=== PATIENT | male | born 1940 | race Caucasian/White ===

== ENCOUNTER 2022-10-18 14:24 | Outpatient (OUT) | payer MEDICARE, BC, SELFPAY ==
--- NOTE | 2022-10-18 14:45 | CT_ITS ---
[address] [address] Patient Name: BROOKLYN ELY MRN: [id number] date: 1940 Sex: M Assigned Patient Location: LAB Current Patient Location: LAB Accession/Order Number: [id number] Exam Date: 10/18/2022 16:00 Report Date: 10/19/2022 06:49 At the request of: TEVIN PURDY Procedure: CT abdomen pelvis w con EXAMINATION: CT abdomen pelvis w con HISTORY: Abnormal weight loss R63.4, Diarrhea, unspecified R19.7 COMPARISON: No relevant comparison available. TECHNIQUE: Axial, Coronal, and Sagittal images were obtained without and/or with IV contrast as indicated by examination type. Dose reduction techniques were achieved by using automated exposure control and/or adjustment of mA and/or kV according to patient size and/or use of iterative reconstruction technique. FINDINGS: LUNG BASES: No visible pulmonary or pleural disease. LIVER: No enlargement, atrophy, suspicious density, or significant focal lesion. BILIARY: No dilatation or calcification. PANCREAS: No lesion, fluid collection, or abnormal duct dilatation. SPLEEN: No enlargement or focal lesion. ADRENALS: No mass or enlargement. KIDNEYS: No mass, obstruction, or calcification. BOWEL/MESENTERY: No visible mass, obstruction, or bowel wall thickening. Normal appendix. No significant diverticulosis. AORTA/VASCULAR: Moderate-marked atherosclerotic disease. No aneurysm or dissection. RETROPERITONEUM: No mass or adenopathy. LYMPH NODES: No adenopathy. URINARY BLADDER: No visible focal wall thickening, lesion, or calculus. PELVIC ORGANS: Prominent prostate protruding into base of bladder. ABDOMINAL WALL: No mass or hernia. BONES: Marked degenerative disc disease L4-5. Degenerative changes of the sacroiliac joints. OTHER: Negative. IMPRESSION: 1. No acute or suspicious findings to account for patient's symptoms. 2.Chronic changes as detailed above. Electronically authenticated by: PAULA ALMAZAN Date: 10/19/2022 06:49
[2022-10-18 14:50] LABS: Estimated GFR (African America 44 (>=60); Estimated GFR (Non-African Ame 36 (>=60)
== END 2022-10-18 14:25 ==
LOC: LAB 14:28
PROVIDERS: PCP Family Medicine; Visit Provider Surgery
DX: R19.7 Diarrhea, unspecified (principal); R63.4 Abnormal weight loss
CPT/HCPCS: 36415; 74177; 82565; Q9966

== ENCOUNTER 2022-11-03 13:26 | Outpatient (OUT) | payer MEDICARE, BC, SELFPAY ==
[2022-11-03 13:57] LABS: Basophils Absolute Auto 0.1 10^3/uL (0.0-0.1); Basophils Percent Auto 0.7 % (0.2-2.0); Eosinophils Absolute Auto 0.2 10^3/uL (0.0-0.7); Eosinophils Percent Auto 2.6 % (0.9-7.0); Hematocrit 30.9 % (42.0-54.0); Hemoglobin 10.3 g/dL (14.0-18.0); Immature Granulocytes Abs Auto 0.03 10^3/uL (0.00-0.03); Immature Granulocytes Pct Auto 0.4 % (0.0-0.5); Lymphocytes Absolute Auto 2.4 10^3/uL (1.2-3.8); Mean Corpuscular HGB Conc 33.3 g/dL (29.9-35.2); Mean Corpuscular Hemoglobin 31.7 pg (25.9-34.0); Mean Corpuscular Volume 95.1 fL (80.0-94.0); Mean Platelet Volume 9.4 fL (9.5-13.5); Monocytes Absolute Auto 0.8 10^3/uL (0.3-0.8); Monocytes Percent Auto 10.3 % (1.7-12.0); Neutrophils Absolute Auto 4.5 10^3/uL (1.4-6.5); Platelet Count 302 10^3/uL (150-450); Red Blood Count 3.25 10^6/uL (4.70-6.10); Red Cell Distribution Width 13.1 % (11.0-15.0); White Blood Count 8.1 10^3/uL (4.0-11.0)
[2022-11-03 14:16] LABS: Estimated Average Glucose 134 mg/dL; Glycohemoglobin A1C 6.3 % (4.5-6.2)
[2022-11-03 15:33] LABS: Alanine Aminotransferase 29 U/L (16-63); Albumin Level 3.6 g/dL (3.4-5.0); Alkaline Phosphatase 70 U/L (46-116); Anion Gap 14.2; Aspartate Amino Transferase 15 U/L (15-37); BUN Creatinine Ratio 19.5; Bilirubin Total 0.2 mg/dL (0.2-1.0); Calcium 8.8 mg/dL (8.5-10.1); Carbon Dioxide 21.3 mmol/L (21.0-32.0); Chloride 109 mmol/L (98-107); Chol HDL Ratio 3.7; Cholesterol 147 mg/dL (<=200); Estimated GFR (African America 51 (>=60); Estimated GFR (Non-African Ame 42 (>=60); Globulin 3.7 g/dL; Glucose 178 mg/dL (74-106); HDL Cholesterol 40 mg/dL (40-60); Potassium 5.5 mmol/L (3.5-5.1); Sodium 139 mmol/L (136-145); Thyroid Stimulating Hormone 2.583 uIU/mL (0.358-3.740); Total Protein 7.3 g/dL (6.4-8.2); Triglycerides 359 mg/dL (<=150); VLDL CHOLESTEROL 71.8 mg/dL
[2022-11-03 18:34] LABS: Free T4 0.85 ng/dL (0.76-1.46)
== END 2022-11-03 13:27 ==
LOC: LAB 13:29
PROVIDERS: PCP Family Medicine; Visit Provider Family Medicine
DX: E03.9 Hypothyroidism, unspecified (principal); E78.5 Hyperlipidemia, unspecified; R79.89 Other specified abnormal findings of blood chemistry; E11.9 Type 2 diabetes mellitus without complications; I10 Essential (primary) hypertension; R53.83 Other fatigue; Z12.11 Encounter for screening for malignant neoplasm of colon; E55.9 Vitamin D deficiency, unspecified
CPT/HCPCS: 36415; 80053; 80061; 82306; 83036; 84439; 84443; 85025

== ENCOUNTER 2022-11-08 15:32 | Outpatient (REF) | payer MEDICARE, BC, SELFPAY ==
[2022-11-09 15:18] LABS: Occult Blood Negative
== END 2022-11-08 15:33 | disposition home or self-care (01) ==
LOC: LAB 15:32
PROVIDERS: PCP Family Medicine; Visit Provider Family Medicine
DX: Z12.11 Encounter for screening for malignant neoplasm of colon (principal)
CPT/HCPCS: G0328

== ENCOUNTER 2023-04-15 13:50 | Outpatient (OUT) | payer MEDICARE, BC, SELFPAY ==
[2023-04-15 14:34] LABS: Basophils Absolute Auto 0.1 10^3/uL (0.0-0.1); Basophils Percent Auto 0.7 % (0.2-2.0); Eosinophils Absolute Auto 0.2 10^3/uL (0.0-0.7); Eosinophils Percent Auto 1.5 % (0.9-7.0); Hematocrit 32.7 % (42.0-54.0); Hemoglobin 10.4 g/dL (14.0-18.0); Immature Granulocytes Abs Auto 0.12 10^3/uL (0.00-0.03); Lymphocytes Absolute Auto 3.4 10^3/uL (1.2-3.8); Lymphocytes Percent Auto 27.8 % (20.5-60.0); Mean Corpuscular HGB Conc 31.8 g/dL (29.9-35.2); Mean Corpuscular Hemoglobin 29.4 pg (25.9-34.0); Mean Corpuscular Volume 92.4 fL (80.0-94.0); Mean Platelet Volume 9.6 fL (9.5-13.5); Monocytes Absolute Auto 1.1 10^3/uL (0.3-0.8); Monocytes Percent Auto 8.6 % (1.7-12.0); Neutrophils Absolute Auto 7.4 10^3/uL (1.4-6.5); Neutrophils Percent Auto 60.4 % (43.0-75.0); Platelet Count 412 10^3/uL (150-450); Red Blood Count 3.54 10^6/uL (4.70-6.10); Red Cell Distribution Width 13.2 % (11.0-15.0); White Blood Count 12.2 10^3/uL (4.0-11.0)
[2023-04-15 14:38] LABS: Estimated Average Glucose 209 mg/dL; Glycohemoglobin A1C 8.9 % (4.5-6.2)
[2023-04-15 14:48] LABS: Alanine Aminotransferase 26 U/L (16-63); Albumin Globulin Ratio 0.7; Albumin Level 3.3 g/dL (3.4-5.0); Alkaline Phosphatase 88 U/L (46-116); Anion Gap 14.7; Aspartate Amino Transferase 10 U/L (15-37); BUN Creatinine Ratio 22.3; Bilirubin Total 0.4 mg/dL (0.2-1.0); Carbon Dioxide 25.3 mmol/L (21.0-32.0); Chloride 104 mmol/L (98-107); Chol HDL Ratio 3.7; Cholesterol 161 mg/dL (<=200); Estimated GFR (African America 44 (>=60); Estimated GFR (Non-African Ame 36 (>=60); Free T3 1.87 pg/mL (2.18-3.98); Globulin 4.5 g/dL; Glucose 253 mg/dL (74-106); HDL Cholesterol 44 mg/dL (40-60); Sodium 139 mmol/L (136-145); Thyroid Stimulating Hormone 1.816 uIU/mL (0.358-3.740); Total Protein 7.8 g/dL (6.4-8.2); Triglycerides 159 mg/dL (<=150); VLDL CHOLESTEROL 31.8 mg/dL
== END 2023-04-15 13:51 | disposition home or self-care (01) ==
LOC: LAB 13:51
PROVIDERS: PCP Family Medicine; Visit Provider Family Medicine
DX: E03.9 Hypothyroidism, unspecified (principal); I10 Essential (primary) hypertension; I25.10 Atherosclerotic heart disease of native coronary artery without angina pectoris; E11.40 Type 2 diabetes mellitus with diabetic neuropathy, unspecified; E78.5 Hyperlipidemia, unspecified; R73.09 Other abnormal glucose; D64.9 Anemia, unspecified; E55.9 Vitamin D deficiency, unspecified
CPT/HCPCS: 36415; 80053; 80061; 82306; 83036; 83540; 84436; 84443; 84481; 85025

== ENCOUNTER 2023-05-18 13:54 | Outpatient (OUT) | payer MEDICARE, BC, SELFPAY ==
--- OUTSIDE RECORDS SUMMARY | 2023-05-18 14:09 | XMS_ITS | CCD ---
Author Name Unknown Address [address] [place] [address] Organization [facility] Care Team Providers Care Manager Coding Name Role Phone Shreyas Adame Primary Care Physician SHREYAS ADAME Primary Care Unavailable NAZZAL, MUNIER Admitting Unavailable NAZZAL, MUNIER Attending Unavailable SHREYAS ADAME Referring Unavailable SHREYAS ADAME Referring Unavailable BENJY MATAMOROSEN Deric Admitting Unavailable LANIE MATAMOROS Attending Unavailable SHREYAS ADAME Primary Care Unavailable SHREYAS ADAME Primary Care Unavailable TRIPP KENNY Admitting Unavailable TRIPP KENNY Attending Unavailable SHREYAS ADAME Referring Unavailable NAZZAL, MUNIER Referring Unavailable NAZZAL, MUNIER Referring Unavailable NAZZAL, MUNIER Referring Unavailable GUILLEOSTHALIAEN Attending Unavailable NAZZAL, MUNIER Attending Unavailable NAZZAL, MUNIER Referring Unavailable SFAELOS TRIPP Referring Unavailable THALIA KENNYEN Attending Unavailable NAZZAL, MUNIER Admitting Unavailable NAZZAL, MUNIER Attending Unavailable DEPE Clement, DR MARTIN Primary Care Unavailable BRENNA ., DR MCKOY Admitting Unavailable BRENNA ., DR MCKOY Attending Unavailable HOY ., DR MARTIN Primary Care Unavailable HOY ., DR MARTIN Attending Unavailable DEEP ., DR MARTIN Admitting Unavailable BOOGIE, DR PARADISE Echavarria Consulting Unavailable HOY ., DR MARTIN Consulting Unavailable GREGORY ELIZABETH Consulting Unavailable BRADLEY, MICHEL Consulting Unavailable NILL ., DR ABARCA Admitting Unavailable HOY ., DR MARTIN Primary Care Unavailable NILL ., DR ABARCA Consulting Unavailable NILL ., DR ABARCA Attending Unavailable RIMMA OLIVAREZ Consulting Unavailable KALLIE, DR MARMOLEJO Admitting Unavailable KALLIE, DR MARMOLEJO Consulting Unavailable KALLIE, DR MARMOLEJO Attending Unavailable HOBrien ., DR MARTIN Primary Care Unavailable HOY ., DR MARTIN Primary Care Unavailable MISC, DOCTOR Admitting Unavailable MISC, DOCTOR Consulting Unavailable MISC, DOCTOR Attending Unavailable Asaad, Imad Unavailable MD Shreyas Adame Primary Care Provider [phone] MD Lamin Thomason Attending Provider [phone] NILL, Tevin R Attending Unavailable NILL, Tevin R Attending Unavailable Shreyas Adame Referring Unavailable NILL, Tevin R Attending Unavailable CEJA, Ted R Attending Unavailable MICHAEL, SAMANTHA Diego Attending Unavailable CEJATde Attending Unavailable CEJA, Ted Echavarria Attending Unavailable MICHAEL, SAMANTHA Diego Attending Unavailable NILL, Tevin R Attending Unavailable Asaad, Imad Admitting Unavailable Asaad, Imad Attending Unavailable Shreyas Adame Primary Care Unavailable Asaad, Imad Admitting Unavailable Asaad, Imad Attending Unavailable Shreyas Adame Primary Care Unavailable Asaad, Imad Admitting Unavailable Asaad, Imad Attending Unavailable Shreyas Adame Primary Care Unavailable Allergies Allergy Classification Reported Allergen(s) Allergy Type Date of Onset Reaction(s) Facility (1 source) 63412,00; Translations: [65112,00] Propensity to adverse reactions (disorder) [address] [facility] Repository (1 source) No Known Medication Allergies; Translations: [No Known Medication Allergies] Propensity to adverse reactions (disorder) [facility] Repository Medications Current Medications Medication Drug Class(es) Dates Sig (Normalized) Sig (Original) amLODIPine 10 mg oral tablet (2 sources) Dihydropyridine Calcium Channel Gerry take 1 tablet by mouth every twenty-four hours amLODIPine Besylate 10 MG 1 tablet Orally Once a day Active amylase 645742 unt / lipase 39785 unt / protease 195198 unt delayed release oral capsule (1 source) Start: 01-31-2023 Creon [id number] UNIT 2 CAPSULES WITH MEALS. 1 WITH SNACKS Orally 5 TIMES DAILY (ALLOW FOR 3 MEALS AND 2 SNACKS. for 30 days Jan, Active ASA (2 sources) ASA 1 tab Oral *please review for potential _update for e-prescription and drug interaction check* Active aspirin 81 mg delayed release oral tablet (7 sources) Platelet Aggregation Inhibitor, Nonsteroidal Anti-inflammatory Drug Start: 09-17-2022 take 2 tablets by mouth once daily aspirin 81 mg Oral EC Tab 162 mg = 2 tab(s), Oral, Daily, Refills(s) 0 Start Date: 09/17/22 Status: Ordered Start: 02-01-2019 aspirin 81 mg Chew Tab 81 mg = 1 tab(s), Chewed, Daily Start Date: 02/01/19 Status: Ordered take 1 tablet by olvin th every twenty-four hours Aspirin 81 81 MG 1 tablet Orally Once a day Active atorvastatin 40 mg oral tablet (7 sources) HMG-CoA Reductase Inhibitor Start: 02-01-2019 take 1 tablet by mouth once daily atorvastatin 40 mg Tab 40 mg = 1 tab(s), Oral, Daily Start Date: 02/01/19 Status: Ordered bifidobacterium infantis 4 mg oral capsule (2 sources) Start: 01-12-2023 Align - as directed Orally once daily for 30 days Dec, Active carvedilol 25 mg oral tablet (6 sources) alpha-Adrenergic Gerry, beta-Adrenergic Gerry Start: 11-27-2021 take 1 tablet by mouth twice daily carvedilol 25 mg Tab 25 mg = 1 tab(s), Oral, BID, Refills(s) 0 Start Date: 11/27/21 Status: Ordered Centrum Vitamints - (2 sources) Centrum Vitamint s - as directed Orally Active cetirizine hydrochloride 10 mg oral tablet (1 source) Histamine-1 Receptor Antagonist Start: 09-17-2022 take 1 tablet by mouth once daily cetirizine 10 mg Tab 10 mg = 1 tab(s), Oral, Daily, Refills(s) 0 Start Date: 09/17/22 Status: Ordered clopidogrel 75 mg oral tablet (7 sources) P2Y12 Platelet Inhibitor Start: 02-01-2019 take 75 mg by mouth once daily clopidogrel 75 mg, Oral, Daily Start Date: 02/01/19 Status: Ordered Clopidogrel Bisu lfate Active doxycycline hyclate 100 mg oral capsule (2 sources) Tetracycline-class Drug Start: 11-27-2021 take 1 capsule by mouth twice daily doxycycline hyclate 100 mg Cap 100 mg = 1 cap(s), Oral, BID, # 28 cap(s), Refills(s) 0, Pharmacy: [address], 168, cm, 11/27/21 10:35:00 EDT, Height/Length Dosing, 78, kg, 11/27/21 10:35:00 EDT, Weight Dosing Start Date: 11/27/21 Status: Ordered dutasteride 0.5 mg oral capsule (4 sources) 5-alpha Reductase Inhibitor Start: 11-27-2021 take 1 capsule by mouth once daily dutasteride 0.5 mg Cap 0.5 mg = 1 cap(s), Oral, Daily, # 90 cap(s), Refills(s) 3, Pharmacy: [facility], 168, cm, 11/27/21 10:35:00 EDT, Height/Length Dosing, 78, kg, 11/27/21 10:35:00 EDT, Weight Dosing Start Date: 11/27/21 Status: Ordered glimepiride 4 mg oral tablet (7 sources) Sulfonylurea Start: 02-01-2019 take 1 tablet by mouth once daily glimepiride 4 mg Tab 4 mg = 1 tab(s), Oral, Daily Start Date: 02/01/19 Status: Ordered Start: 02-01-2019 take 2 tablets by [facility] once daily glimepiride 4 mg Tab 8 mg = 2 tab(s), Oral, Daily Start Date: 02/01/19 Status: Ordered hydrALAZINE hydrochloride 100 mg oral tablet (2 sources) Arteriolar Vasodilator take 1 tablet by mouth every twelve hours hydrALAZINE HCl 100 MG 1 tablet Orally Twice a day Active 1 ml hydrOXYzine hydrochloride 25 mg/ml injection (2 sources) Antihistamine hydrOXYzine HCl 25 MG/ML as directed Intramuscular Active levothyroxine sodium 0.075 mg oral tablet (3 sources) l-Thyroxine Start: 09-18-19 take 1 tablet by mouth once daily levothyroxine 75 mcg (0.075 mg) Tab 75 mcg = 1 tab(s), Oral, Daily, Refills(s) 0 Start Date: 09/17/22 Status: Ordered take [address] [facility] once daily in the morning Synthroid 50 MCG 1 tablet on an empty stomach in the morning Orally Once a day Active lisinopril 10 mg oral tablet (7 sources) Angiotensin Converting Enzyme Inhibitor Start: 09-17-2022 take 1 tablet by mouth twice daily lisinopril 10 mg Tab 10 mg = 1 tab(s), Oral, BID, Refills(s) 0 Start Date: 09/17/22 Status: Ordered Start: 02-01-2019 take 1 tablet by olvin th twice daily lisinopril 2.5 mg Tab 2.5 mg = 1 tab(s), Oral, BID Start Date: 02/01/19 Status: Ordered Lisinopril 5 MG Orally Active metFORMIN hydrochloride 1000 mg oral tablet (6 sources) Biguanide Start: 02-01-2019 take 1000 mg by mouth twice daily metformin 1,000 mg, Oral, BID Start Date: 02/01/19 Status: Ordered 24 hr metoprolol succinate 50 mg extended release oral tablet (6 sources) beta-Adrenergic Gerry Start: 02-01-2019 take 1 tablet by mouth twice daily metoprolol 50 mg ER Tab 50 mg = 1 tab(s), Oral, BID Start Date: 02/01/19 Status: Ordered take 1 tablet by olvin th every twenty-four hours Metoprolol Succinate ER 100 MG 1 tablet Orally Once a day Active pantoprazole 40 mg extended release oral tablet (7 sources) Proton Pump Inhibitor Start: 02-01-2019 take 1 tablet by mouth once daily pantoprazole 40 mg Oral EC Tab 40 mg = 1 tab(s), Oral, Daily Start Date: 02/01/19 Status: Ordered Start: 02-01-2019 take 1 tablet by olvin th once daily pantoprazole 40 mg Oral EC Tab 40 mg = 1 tab(s), Oral, Daily Start Date: 02/01/19 Status: Ordered Psyllium Fiber 0.52 GM (2 sources) Start: 01-12-2023 Psyllium Fiber 0.52 GM 2 capsules with 8 ounces of liquid Orally Three times a day for 30 day(s) Dec, Active sAXagliptin 2.5 mg oral tablet (6 sources) Dipeptidyl Peptidase 4 Inhibitor Start: 02-01-2019 take 1 tablet by mouth once daily Onglyza 2.5 mg oral tablet 2.5 mg = 1 tab(s), Oral, Daily Start Date: 02/01/19 Status: Ordered SITagliptin 100 mg oral tablet (6 sources) Dipeptidyl Peptidase 4 Inhibitor Start: 11-27-2021 take 1 tablet by mouth once daily Januvia 100 mg Tab 100 mg = 1 tab(s), Oral, Daily, Refills(s) 0 Start Date: 11/27/21 Status: Ordered spironolactone 25 mg oral tablet (4 sources) Aldosterone Antagonist Start: 11-27-2021 take 1 tablet by mouth once daily spironolactone 25 mg Tab 25 mg = 1 tab(s), Oral, Daily, Refills(s) 0 Start Date: 11/27/21 Status: Ordered tamsulosin hydrochloride 0.4 mg oral capsule (7 sources) alpha-Adrenergic Gerry Start: 02-01-2019 take 1 capsule by mouth once daily tamsulosin 0.4 mg Cap 0.4 mg = 1 cap(s), Oral, Daily Start Date: 02/01/19 Status: Ordered Thyroxine Sodium Pentahydrate (4 sources) Start: 02-01-2019 Thyroxine Sodium Pentahydrate See Instructions, Refills(s) 0 Start Date: 02/01/19 Status: Ordered Vitox (4 sources) Start: 02-01-2019 Vitox See Instructions, Refill(s) 0 Start Date: 02/01/19 Status: Ordered Problems Active Problems Problem Classification Problem Date Documented Da te Episodic/Chronic Acquired foot deformities (2 sources) Acquired hallux malleus; Translations: [Other hammer toe(s) (acquired), unspecified foot] Chronic Anxiety disorders (1 source) Anxiety 09-17-2022 Chronic Coronary atherosclerosis and other heart disease (3 sources) Coronary arteriosclerosis; Translations: [Coronary atherosclerosis] 09-17-2022 Chronic Deficiency and other anemia (1 source) Anemia due to chronic blood loss; Translations: [Iron deficiency anemia secondary to blood loss (chronic)] Onset: 09-22-2022 Chronic Deficiency and other anemia (1 source) Anemia due to blood loss 09-22-2022 Chronic Diabetes mellitus with complications (4 sources) Diabetic peripheral neuropathy; Translations: [Type 2 diabetes mellitus with hyperglycemia] Onset: 01-05-2022 09-17-2022 Chronic Diabetes mellitus without complication (5 sources) Diabetes mellitus 02-01-2019 Chronic Disorders of lipid metabolism (2 sources) Hypertriglyceridemia ; Translations: [Pure hypercholesterolemia , unspecified] Onset: 01-05-2022 09-17-2022 Chronic Essential hypertension (6 sources) Hypertensive disorder; Translations: [Essential (primary) hypertension] Onset: 01-05-2022 02-01-2019 Chronic Heart valve disorders (2 sources) Aortic valve regurgitation; Translations: [Mitral valve regurgitation] 09-17-2022 Chronic Hyperplasia of prostate (12 sources) Benign prostatic hypertrophy with outflow obstruction; Translations: [Benign prostatic hyperplasia with lower urinary tract symptoms] Onset: 11-27-2021 02-01-2019 Chronic Inflammatory conditions of male genital organs (8 sources) Chronic prostatitis; Translations: [Chronic prostatitis] Onset: 11-27-2021 02-01-2019 Chronic Occlusion or stenosis of precerebral arteries (9 sources) Occlusion and stenosis of bilateral carotid arteries; Translations: [Occlusion and stenosis of right carotid artery] Onset: 10-15-2021 Chronic Other and ill-defined heart disease (1 source) Ventricular hypertrophy 09-17-2022 Chronic Other and ill-defined heart disease (4 sources) Heart disease, unspecified; Translations: [HEART DISEASE UNSPECIFIED] Onset: 11-23-2021 Chronic Other circulatory disease (1 source) History of transient ischemic attack 09-17-2022 Episodic Other diseases of kidney and ureters (1 source) Urinary tract obstruction; Translations: [Other obstructive and reflux uropathy] Onset: 06-09-2022 Episodic Other gastrointestinal disorders (1 source) Irritable bowel syndrome 09-17-2022 Chronic Other gastrointestinal disorders (2 sources) Altered bowel function; Translations: [Change in bowel habit] Onset: 09-22-2022 Episodic Other gastrointestinal disorders (4 sources) Incontinence of feces; Translations: [Full incontinence of feces] Onset: 09-22-2022 Episodic Other gastrointestinal disorders (3 sources) Diarrhea; Translations: [Diarrhea, unspecified] Onset: 09-22-2022 Episodic Other gastrointestinal disorders (2 sources) Constipation; Translations: [Constipation, unspecified] Episodic Other gastrointestinal disorders (1 source) Full incontinence of feces Episodic Other gastrointestinal disorders (2 sources) Constipation, unspecified; Translations: [Constipation, unspecified] Onset: 01-18-2023 Episodic Other nervous system disorders (2 sources) Other acute postprocedural pain; Translations: [Other acute postprocedural pain] Onset: 02-22-2022 Episodic Other nutritional; endocrine; and metabolic disorders (1 source) Abnormal weight loss; Translations: [Abnormal weight loss] Onset: 09-22-2022 Episodic Other nutritional; endocrine; and metabolic disorders (1 source) Overweight in adulthood with body mass index of 25 or more but less than 30 09-22-2022 Episodic Other nutritional; endocrine; and metabolic disorders (1 source) Weight loss 09-22-2022 Episodic Other screening for suspected conditions (not mental disorders or infectious disease) (5 sources) Raised prostate specific antigen 02-01-2019 Episodic Peripheral and visceral atherosclerosis (1 source) Peripheral vascular disease 09-17-2022 Chronic Pulmonary heart disease (1 source) Pulmonary hypertension 09-17-2022 Chronic Screening and history of mental health and substance abuse codes (5 sources) Ex-smoker 02-01-2019 Episodic Spondylosis; intervertebral disc disorders; other back problems (1 source) Spinal stenosis of lumbar region 09-17-2022 Episodic Thyroid disorders (1 source) Hypothyroidism 09-17-2022 Chronic Unclassified (5 sources) Drug therapy finding 02-01-2019 Unclassified (1 source) Severe aortic valve stenosis 09-17-2022 Unclassified (1 source) CONTACT W/AND (SUSP) EXPOS COVID-19; Translations: [CONTACT W/AND (SUSP) EXPOS COVID-19] Onset: 01-05-2022 Past or Other Problems Problem Classification Problem Date Documented Date Episodic/Chronic Acute and unspecified renal failure (1 source) Acute kidney failure, unspecified; Translations: [ACUTE KIDNEY FAILURE UNSPECIFIED] Onset: 01-05-2022 Episodic Coronary atherosclerosis and other heart disease (1 source) Presence of aortocoronary bypass graft; Translations: [PRESENCE AORTOCORONARY BYPASS GRAFT] Onset: 01-05-2022 Episodic Fluid and electrolyte disorders (1 source) Dehydration; Translations: [DEHYDRATION] Onset: 01-05-2022 Episodic Genitourinary symptoms and ill-defined conditions (15 sources) Dysuria; Translations: [Dysuria] Onset: 10-06-2021 Episodic Malaise and fatigue (4 sources) Weakness; Translations: [WEAKNESS] Onset: 12-25-2021 Episodic Noninfectious gastroenteritis (1 source) Noninfective gastroenteritis and colitis, unspecified; Translations: [NONINFECTIVE GE AND COLITIS UNS] Onset: 01-05-2022 Episodic Other aftercare (1 source) halfway (current) use of aspirin; Translations: [SENIOR CARE CURRENT USE OF ASPIRIN] Onset: 01-05-2022 Episodic Other aftercare (1 source) halfway (current) use of oral hypoglycemic drugs; Translations: [SENIOR CARE USE ORAL HYPOGLYCEMIC DX] Onset: 01-05-2022 Episodic Other aftercare (1 source) 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/antip latelets; Translations: [SENIOR CARE ANTITHROMBOT/ANTIPLAT LETS] Onset: 01-05-2022 Episodic Other aftercare (1 source) 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; Translations: [OTH SENIOR CARE CURRENT DRUG THERAPY] Onset: 01-05-2022 Episodic Other circulatory disease (1 source) Personal history of transient ischemic attack (TIA), and cerebral infarction without residual deficits; Translations: [PERS HX TIA AND CI NO RESID DEFICIT] Onset: 01-05-2022 Episodic Residual codes; unclassified (1 source) Altered mental status, unspecified; Translations: [ALTERED MENTAL STATUS UNSPECIFIED] Onset: 01-05-2022 Episodic Septicemia (except in labor) (1 source) Gram-negative sepsis, unspecified; Translations: [GRAM-NEGATIVE SEPSIS UNSPECIFIED] Onset: 01-05-2022 Episodic Urinary tract infections (1 source) Urinary tract infection, site not specified; Translations: [UTI SITE NOT SPECIFIED] Onset: 01-05-2022 Episodic Results Test Name Value Interpretation Reference Range Facility Consultation Noteon 01-20-20 Consultation Note [id number] [facility] Stool Cultureon 01-18-2023 Stool culture Reason for Exam Constipation, unspecified constipation type Stool Reason for Exam: Constipation, unspecified constipation type : Stool Negative for Shiga Toxin 1 Negative for Shiga Toxin 2 A negative Shiga Toxin result may occur if the antigen level in the specimen is below the detection limit of the assay. Stool culture results No Salmonella, Shigella, Campy or E. coli 0157:H7 Isolated PERFORMED BY: [place] [id number] [place] [address] PATHOLOGIST MOLD CARRIER SUMAN HAY M.D. [facility] Comment on above: Performed By: #### C MAYELAOL #### [place] [address] [place] Calprotectin, Fecalon 2022 Calprotectin, Fecal 78 Normal 0-120 [facility] Comment on above: Order Comment: Reaso n for Exam Constipation, unspecified constipation type Result Comment: Conc entration Interpretation Follow-Up < 5 - 50 ug/g Normal None >50 -120 ug/g Borderline Re-evaluate in 4-6 weeks >120 ug/g Abnormal Repeat as clinically indicated Performed at: [facility] [address] [id number] Tin Dipper: Miguel Avilez MD, Phone: [phone] PERFORMED BY: [place] [address] PATHOLOGIST MOLD CARRIER SUMAN HAY M.D. Performed By: #### O PEXAM, CALPROTECT, ELASTASE STOOL #### [facility] , OVA AND PARASITEon OVA AND PARASITE Reason for Exam Constipation, unspecified constipation type Stool Reason for Exam: Constipation, unspecified constipation type : Stool Final report These results were obtained using wet preparation(s) and trichrome stained smear. This test does not include testing for Cryptosporidium parvum, Cyclospora, or Microsporidia. Reason for Exam Constipation, unspecified constipation type Stool Reason for Exam: Constipation, unspecified constipation type : Stool No ova, cysts, or parasites seen. One negative specimen does not rule out the possibility of a parasitic infection. Performed at: [facility] [address] [id number] Tin Dipper: Igor Roque PhD, Phone: [phone] PERFORMED BY: [place] [address] PATHOLOGIST MOLD CARRIER SUMAN HAY M.D. Normal [facility] Comment on above: Performed By: #### O PEXAM, CALPROTECT, ELASTASE STOOL #### [facility] , Pancreatic Elastase, Stoolon 01-16-2023 Pancreatic Elastase, Stool 150 Low >200 [facility] Comment on above: Order Comment: Reaso n for Exam Constipation, unspecified constipation type Result Comment: Resu lt Units: ug Elast./g Severe Pancreatic Insufficiency: <100 Moderate Pancreatic Insufficiency: 100 - 200 Normal: >200 Performed at: [address] [id number] Tin Dipper: Miguel Avilez MD, Phone: [phone] PERFORMED BY: [place] [address] PATHOLOGIST MOLD CARRIER SUMAN HAY M.D. Performed By: #### O PEXAM, CALPROTECT, ELASTASE STOOL #### [facility] , C reactive protein [Mass/vol ume] in Serum or PlasmaOrdered By: Imad Asaad on 01-12-2023 CRP [Mass/Vol] < 0.5 mg/dL 0.0-0.5 [facility] C-Reactive Proteinon 023 CRP [Mass/Vol] mg/L Normal 0.0-0.5 [facility] Comment on above: Order Comment: Reaso n for Exam Constipation, unspecified constipation type Performed By: #### T SH3, ESR, CRP #### [facility] [address] [place] [address] #### CELIAC, HIV SCREEN #### [facility] , Celiacon 01-12-2023 Deamidated Gliadin Abs, IgA 10 Normal 0- [facility] Comment on above: Order Comment: Reaso n for Exam Constipation, unspecified constipation type Result Comment: Nega tive 0 - 19 Weak Positive 20 - 30 Moderate to Strong Positive >30 Performed By: #### T SH3, ESR, CRP #### [facility] [address] [place] [address] #### CELIAC, HIV SCREEN #### [facility] , Deamidated Gliadin Abs, IgG 2 Normal 0-19 [facility] Comment on above: Order Comment: Reaso n for Exam Constipation, unspecified constipation type Result Comment: Nega tive 0 - 19 Weak Positive 20 - 30 Moderate to Strong Positive >30 Performed By: #### T SH3, ESR, CRP #### [facility] [address] [place] [address] [place] #### CELIAC, HIV SCREEN #### [facility] , Endomysial Antibody IgA Negative Normal Negative [facility] Comment on above: Order Comment: Reaso n for Exam Constipation, unspecified constipation type Performed By: #### T SH3, ESR, CRP #### [facility] [address] [place] [address] [place] #### CELIAC, HIV SCREEN #### [facility] , Immunoglobulin A, Qn, Serum 437 mg/dL Normal 61-437 [facility] Comment on above: Order Comment: Reaso n for Exam Constipation, unspecified constipation type Result Comment: Perf ormed at: - [facility] [address] [id number] Tin Dipper: Igor Roque PhD, Phone: [phone] Performed By: #### T SH3, ESR, CRP #### [facility] [address] [place] [address] [place] #### CELIAC, HIV SCREEN #### [facility] , T-Transglutaminase (tTG) IgA <2 Normal 0-3 [facility] Comment on above: Order Comment: Reaso n for Exam Constipation, unspecified constipation type Result Comment: Nega tive 0 - 3 Weak Positive 4 - 10 Positive >10 Tissue Transglutaminase (tTG) has been identified as the endomysial antigen. Studies have demonstr- ated that endomysial IgA antibodies have over 99% specificity for gluten sensitive enteropathy. Performed By: #### T SH3, ESR, CRP #### [facility] [address] [place] [address] [place] #### CELIAC, HIV SCREEN #### [facility] , T-Transglutaminase (tTG) IgG 5 Normal 0-5 [facility] Comment on above: Order Comment: Reaso n for Exam Constipation, unspecified constipation type Result Comment: Nega tive 0 - 5 Weak Positive 6 - 9 Positive >9 Performed By: #### T SH3, ESR, CRP #### [address] #### CELIAC, HIV SCREEN #### [facility] , Erythrocyte Sedimentation Ra miguel 01-12-2023 ESR (Bld) [Velocity] 19 mm/h Normal 0-19 [facility] Comment on above: Order Comment: Reaso n for Exam Constipation, unspecified constipation type Result Comment: PERF ORMED BY: [place] [address] PATHOLOGIST MOLD CARRIER SUMAN HAY M.D. Performed By: #### T SH3, ESR, CRP #### [address] #### CELIAC, HIV SCREEN #### [facility] , Erythrocyte sedimentation ra te by Photometric methodOrdered By: Imad Asaad on 01-12-2023 ESR Photometric method (Bld) [Velocity] 19 mm/hr 0- [facility] HIV 1/O/2 Antigen/Antibodyon 01-12-2023 HIV Screen 4th Generation Non-Reactive Normal Non Reactive [facility] Comment on above: Order Comment: Reaso n for Exam Constipation, unspecified constipation type Result Comment: HIV Negative HIV-1/HIV-2 antibodies and HIV-1 p24 antigen were NOT detected. There is no laboratory evidence of HIV infection. Performed at: [address] [id number] Tin Dipper: Igor Roque PhD, Phone: [phone] PERFORMED BY: [place] [address] PATHOLOGIST MOLD CARRIER SUMAN HAY M.D. Performed By: #### T SH3, ESR, CRP #### [facility] [address] [place] [address] [place] #### CELIAC, HIV SCREEN #### [facility] , HIV 1 and HIV-2 antibody ass ay with HIV-1 p24 antigen detectionOrdered By: Imad Asaad on 01-12-2023 HIV 1+2 Ab+HIV1 p24 Ag IA Ql Non-Reactive Non Reactive [facility] Comment on above: HIV NegativeHIV-1/HI V-2 antibodies and HIV-1 p24 antigen were NOTdetected. There is no laboratory evidence of HIV infection.Performed at: CB - [facility] [address] [id number] Director: Igor Roque PhD, Phone: [phone] IgA [Mass/volume] in Serum o r PlasmaOrdered By: Lamin Thomason on 01-12-2023 IgA [Mass/Vol] 437 mg/dL 61-437 [facility] Comment on above: Performed at: CB - [facility] [address] [id number] Director: Igor Roque PhD, Phone: [phone] No Panel InformationOrdered By: Lamin Thomason on 01-12-2023 Endomysial IgA Antibody Negative Negative [facility] Serum gliadin peptide IgA an tibody assay (units/volume)Ordered By: Lamin Thomason on 01-12-2023 Gliadin peptide IgA Qn (S) 10 units 0-19 [facility] Comment on above: Negative 0 - 19 Weak Positive 20 - 30 Moderate to Strong Positive >30 Serum gliadin peptide IgG an tibody assay (units/volume)Ordered By: Lamin Thomason on 01-12-2023 Gliadin peptide IgG Qn (S) 2 units 0-19 [facility] Comment on above: Negative 0 - 19 Weak Positive 20 - 30 Moderate to Strong Positive >30 Serum tissue transglutaminas e (tTG) IgA antibody assay (units/volume)Ordered By: Lamin Thomason on 01-12-2023 tTG IgA Qn (S) <2 U/mL 0-3 [facility] Comment on above: Negative 0 - 3 Weak Positive 4 - 10 Positive >10 Tissue Transglutaminase (tTG) has been identified as the endomysial antigen. Studies have demonstr- ated that endomysial IgA antibodies have over 99% specificity for gluten sensitive enteropathy. Serum tissue transglutaminas e (tTG) IgG antibody assay (units/volume)Ordered By: Lamin Thomason on 01-12-2023 tTG IgG Qn (S) 5 U/mL 0-5 [facility] Comment on above: Negative 0 - 5 Weak Positive 6 - 9 Positive >9 Thyroid Stimulating Hormoneo n 01-12-2023 TSH Qn 1.54 m[IU]/L Normal 0.45-5.33 [facility] Comment on above: Order Comment: Reaso n for Exam Constipation, unspecified constipation type Result Comment: PERF ORMED BY: [place] [address] PATHOLOGIST MOLD CARRIER SUMAN HAY M.D. Performed By: #### T SH3, ESR, CRP #### [facility] [address] [place] [address] [place] #### CELIAC, HIV SCREEN #### [facility] , Thyrotropin [Units/volume] i n Serum or PlasmaOrdered By: Lamin Thomason on 01-12-2023 TSH Qn 1.54 m[IU]/L 0.45-5.33 [facility] Ambulatory Visit Summaryon 0 12-13-2022 Ambulatory Visit Summary PATRICK RUTHERFORD :1940 Visit Date:12/13/2022 Ambulatory Visit Instructions Your Diagnosis BPH with urinary obstruction Chronic prostatitis Incomplete bladder emptying Tests Performed Urnls Dip Stick Auto w/o Microscopy POC 107[address] Your Care Team Attending Physician - BRENNA LUU, Ted Echavarria Primary Care Physician - Deep LUU, Shreyas This Is Your Medications List tamsulosin (tamsulosin 0.4 mg Cap) Contact prescribing physician if questions or concerns aspirin (aspirin 81 mg Oral EC Tab) atorvastatin (atorvastatin 40 mg Tab) carvedilol (carvedilol 25 mg Tab) cetirizine (cetirizine 10 mg Tab) cholestyramine (Questran 4 g/9 g oral powder) clopidogrel dutasteride (dutasteride 0.5 mg Cap) glimepiride (glimepiride 4 mg Tab) hydrOXYzine (hydrOXYzine hydrochloride 25 mg Tab) levothyroxine (levothyroxine 75 mcg (0.075 mg) Tab) lisinopril (lisinopril 10 mg Tab) pantoprazole (pantoprazole 40 mg Oral EC Tab) sitagliptin (Januvia 100 mg Tab) spironolactone (spironolactone 25 mg Tab) Procedures Performed Colonoscopy (09/29/2022), EGD - Esophagogastroduodenoscopy (09/29/2022), Cystoscopy (12/22/2021), AVR - Aortic valve replacement, CABG - Coronary artery bypass graft, Carotid endarterectomy, Cystoscopy, Endarterectomy, Stent placement, Stent placement. What to do next Scheduled Follow-Up Appointments Tuesday 3:00 PM EST With: BRENNA LUU, Ted Echavarria Where: [facility] Patient Educationon 12-14-19 23 Patient Education Infectious Disease Prostatitis Prostatitis is swelling or inflammation of the prostate gland, also called the prostate. This gland is about 1.5 inches wide and 1 inch high, and it is involved in making semen. The prostate is located below a man's bladder, in front of the rectum. There are four types of prostatitis: ? Chronic prostatitis (CP), also called chronic pelvic pain syndrome (CPPS). This is the most common type of prostatitis. It is associated with increased muscle tone in the area between the hip bones (pelvic area), around the prostate. This type is also known as a pelvic floor disorder. ? Chronic bacterial prostatitis. This type usually results from an acute bacterial infection in the prostate gland that keeps coming back or has not been treated properly. The symptoms are less severe than those caused by acute bacterial prostatitis, which lasts a shorter time. ? Asymptomatic inflammatory prostatitis. This type does not have symptoms and does not need treatment. This is diagnosed when tests are done for other disorders of the urinary tract or reproductive tract. ? Acute bacterial prostatitis. This type starts quickly and results from an acute bacterial infection in the prostate gland. It is usually associated with a bladder infection, high fever, and chills. This is the least common type of prostatitis. What are the causes? Bacterial prostatitis is caused by an infection from bacteria. Chronic nonbacterial prostatitis may be caused by: ? Factors related to the nervous system. This system includes thebrain, spinal cord, and nerves. ? An autoimmune response. This happens when the body's disease-fighting system attacks healthy tissue in the body by mistake. ? Psychological factors. These have to do with how the mind works. The causes of the other types of prostatitis are usually not known. What are the signs or symptoms? Symptoms of this condition depend on the type of prostatitis you have. Acute bacterial prostatitis Symptoms may include: ? Pain or burning during urination. ? Frequent and sudden urges to urinate. ? Trouble starting to urinate. ? Fever. ? Chills. ? Pain in your muscles or joints, lower back, or lower abdomen. Other types of prostatitis Symptoms may include: ? Sudden urges to urinate, or urinating often. ? Trouble starting to urinate. ? Weak urine stream. ? Dribbling after urination. ? Discharge coming from the penis. ? Pain in the testicles, the penis, or the tip of the penis. ? Pain in the area in front of the rectum and below the scrotum (perineum). ? Pain when ejaculating. How is this diagnosed? This condition may be diagnosed based on: ? A physical and medical exam. ? A digital rectal exam. For this, the health care provider may use a finger to feel the prostate. ? A urine test to check for bacteria. ? A semen sample or blood tests. ? Ultrasound. ? Urodynamic tests to check how your body handles urine. ? Cystoscopy to look inside your bladder or inside the part of your body that drains urine from the bladder (urethra). How is this treated? Treatment for this condition depends on the type of prostatitis. Treatment may involve: ? Medicines to relieve pain or inflammation, or to help relax your muscles. ? Physical therapy. ? Heat therapy. ? Biofeedback. These techniques help you control certain body functions. ? Relaxation exercises. ? Antibiotic medicine, if your condition is caused by bacteria. ? Sitz baths. These warm water baths help to relax your pelvic floor muscles, which helps to relieve pressure on the prostate. Follow these instructions at home: Medicines ? Take owat-zjn-hucxrez and prescription medicines only as told by your health care provider. ? If you were prescribed an antibiotic medicine, take it as told by your health care provider. Do not stop using the antibiotic even if you start to feel better. Managing pain and swelling ? Take sitz baths as directed by your health care provider. For a sitz bath, sit in warm water that is deep enough to cover your hips and buttocks. ? If directed, apply heat to the affected area as often as told by your health care provider. Use the heat source that your health care provider recommends, such as a moist heat pack or a heating pad. ? Place a towel between your skin and the heat source. ? Leave the heat on for 20?30 minutes. ? Remove the heat if your skin turns bright red. This is especially important if you are unable to feel pain, heat, or cold. You may have a greater risk of getting burned. General instructions ? Do exercises as told by your health care provider, if you were prescribed physical therapy, biofeedback, or relaxation exercises. ? Keep all follow-up visits as told by your health care provider. This is important. Where to find more information ? National [place] of [employer] and Digestive and Kidney Diseases: (more content not included)... Normal [facility] Urology Office/Clinic Noteon 12-13-2022 Urology Office/Clinic Note Chief Complaint BPH with urinary obstruction HPI Staff 6 month f/u. Previous dx of BPH with urinary obstruction, chronic prostatitis and incomplete bladder emptying. Pt continues taking Dutasteride 5mg QD and Tamsulosin 0.4mg QD. Dysuria: pain and burning every time he voids and states that it is worse than before. Incomplete bladder emptying: sometimes he feels he may not be emptying all the way. Hematuria: no Frequency: no Urgency: rare Nocturia: 1-2x Stream: small and weak with some straining Leaking: yes once in a while Post void dripping: no Wearing pads/ Depends: wears depends and can wear the same all day Urge incontinence: only if he waits too long does he have an accident Stress incontinence: no Incontinence without Sensory Awareness: no Abdominal pain: no Flank pain: no Sexual complaints: no History of Present Illness Tests reviewed: reviewed UA I have reviewed the previous health record information and history for this patient from Dr. Ceja. I have reviewed and verified the staff HPI to be accurate for this encounter. There have been no associated fever, chills, flank pain, or blood in the urine. Denies any urinary infections since last encounter. Review of Systems PHQ Score Initial Depression Screen Score: 0 ROS - Provider Constitutional: denies weight loss, denies hot flashes. Eyes: denies eye problems. Gastrointestinal: denies nausea, denies vomiting. Cardiovascular: denies chest pain or angina. Integumentary: no dryness Musculoskeletal: denies musculoskeletal symptoms. ENMT: denies otolaryngeal symptoms. Respiratory: no shortness of breath. Heme/Lymph: denies easy bleeding tendency, denies easy bruising tendency. Psychiatric: no confusion, no anxiety. Genitourinary: See HPI. Physical Exam General Appearance: alert, no distress, well nourished, well developed male. Genitourinary: normal scrotum, normal testes, normal urethra, normal epididymis, normal vas deferens/spermatic cord. Flank Pain: none. Bladder: nonpalpable. Assessment/Plan 1. BPH with urinary obstruction (N40.1: Benign prostatic hyperplasia with lower urinary tract symptoms) Pt is currently taking Tamsulosin 0.4mg QD at night and Dutasteride 0.5mg QD. Reports start/stop stream on occasion. UA today negative for blood and infection. Will increase Tamsulosin dosage to BID. Discussed possible SEs like dizziness upon standing and pt to monitor for these. he will go back to once per day if he gets any new side effect. Will send new script to [facility]. Follow up in 6 months. All questions/concerns were discussed. Pt to call the office if he encounters any issues prior. Pt acknowledges understanding. 2. Chronic prostatitis (N41.1: Chronic prostatitis) Pt reports he has had some burning with urination. Recommended pt to increase fluid intake to five to six 16oz bottles a day; preferably water, clear pop, and sugar free lemonade. 3. Incomplete bladder emptying (R33.9: Retention of urine, unspecified) Previous PVR on 06/09/22 was 165mL. No bladder scan done today. Reports he does not always feel he empties completely. Follow-up With When Contact Information BRENNA LUU, Tde Echavarria, URL [facility] [address], [place] [address]- [phone] Additional Instructions: 6 mos Patient Education Prostatitis IWilda, personally scribed for Dr. Ceja on 12/13/2022 16:26:30. . Documentation recorded by the scribeWilda, accurately reflects the services(s) I performed and decisions made by me. Authenticated by Dr. Ceja on 12/13/2022 16:29:42. Problem List/Past Medical History Ongoing Anemia due to gastrointestinal blood loss Anticoagulated Anxiety Aortic insufficiency Atherosclerotic heart disease BMI 25.0-25.9,adult BPH with urinary obstruction CAD (coronary artery disease) Change in bowel habits Chronic prostatitis Diabetes Diabetic peripheral neuropathy Diarrhea Dysuria Elevated PSA Enlarged prostate with urinary obstruction Fecal incontinence Former smoker Frequent loose stools History of myocardial infarction Hx-TIA (transient ischemic attack) Hypertension Hypertriglyceridemia Hypothyroidism IBS (irritable bowel syndrome) Incomplete bladder emptying Irritable bowel syndrome Microscopic hematuria Mitral regurgitation Peripheral vascular disease Pulmonary HTN Rectal tenesmus Right carotid artery stenosis Severe aortic stenosis Spinal stenosis of lumbar region with radiculopathy Ventricular hypertrophy Weight loss Historical No qualifying data Procedure/Surgical History Colonoscopy (09/29/2022), EGD - Esophagogastroduodenoscopy (09/29/2022), Cystoscopy (12/22/2021), AVR - Aortic valve replacement, CABG - Coronary artery bypass graft, Carotid endarterectomy, Cystoscopy, Endarterectomy, Stent placement, Stent placement. Medications aspirin 81 mg Oral (more content not included)... Normal [facility] Comment on above: Result Comment: Elec tronically Signed By: Ted CEJA MD\.br\Date and Time Signed: 12/13/22 16:29 EDT\.br\Electronically Co-Signed By: Wilda Choudhary\.br\Date and Time Co-Signed: 12/13/22 16:27 EDT RAD - CT Reporton 10-26-2022 RAD - CT Report [id number]:127 Normal [facility] Lab Reportson 10-24-2022 Lab Reports [id number]:127 Normal [facility] Ambulatory Visit Summaryon 0 10-06-2022 Ambulatory Visit Summary PATRICK RUTHERFORD :1940 Visit Date:10/06/2022 Ambulatory Visit Instructions Your Diagnosis Weight loss Irritable bowel syndrome Frequent loose stools Your Care Team Attending Physician - Tevin PURDY MD Primary Care Physician - Shreyas Adame MD This Is Your Medications List Contact prescribing physician if questions or concerns aspirin (aspirin 81 mg Oral EC Tab) atorvastatin (atorvastatin 40 mg Tab) carvedilol (carvedilol 25 mg Tab) cetirizine (cetirizine 10 mg Tab) clopidogrel dutasteride (dutasteride 0.5 mg Cap) glimepiride (glimepiride 4 mg Tab) levothyroxine (levothyroxine 75 mcg (0.075 mg) Tab) lisinopril (lisinopril 10 mg Tab) pantoprazole (pantoprazole 40 mg Oral EC Tab) sitagliptin (Januvia 100 mg Tab) spironolactone (spironolactone 25 mg Tab) tamsulosin (tamsulosin 0.4 mg Cap) Procedures Performed Colonoscopy (09/29/2022), EGD - Esophagogastroduodenoscopy (09/29/2022), Cystoscopy (12/22/2021), AVR - Aortic valve replacement, CABG - Coronary artery bypass graft, Carotid endarterectomy, Cystoscopy, Endarterectomy, Stent placement, Stent placement. What to do next Scheduled Follow-Up Appointments Tuesday 3:00 PM EDT With: BRENNA LUU, Ted Echavarria Where: [facility] General Surgery Office/Clini c Noteon 10-06-2022 General Surgery Office/Clinic Note Chief Complaint post operative follow up HPI Staff 7 day post operative follow up post EGD and colonoscopy. Continues to experience loose stools and intermittent incontinence. History of Present Illness s/p EGD/colonoscopy for wt loss, loose stools, incontinence; normal EGD, colonoscopy with redundant colon with spasm; still with loose stools once daily and wt loss; no abd imaging; evidence of IBS on colonoscopy; patient reports increased stress due to 's illness. Review of Systems ROS - Provider Constitutional: no fever, no sweats, no weight loss. Eyes: no glasses, no blurred vision, no visual loss. ENMT: no dentures, no hoarseness, no swallowing difficulties, no hearing loss, no ear infection(s), no nose bleeds. Cardiovascular: normal blood pressure, no chest pain, regular heartbeat, no heart murmur. Respiratory: no shortness of breath, no cough, no asthma, no wheezing. Gastrointestinal: no nausea, no vomiting, no diarrhea, no constipation, no blood in stool, no change in bowel habits, no abdominal pain, no hepatitis. Genitourinary: no kidney stones, no urine infection, no dysuria. Musculoskeletal: no pain, no weakness. Skin: no changing moles, no rash, no skin lumps. Neurologic: no seizures, no epilepsy, no headache. Psychiatric: no emotional or psychiatric problem. Heme/Lymph: no bleeding problems, no anemia, no blood clots, no transfusions. Allergy/Immunologic: no swollen lymph nodes/glands, no IV drug abuse. Other: Additional ROS info: Except as noted in the above Review of Systems and in the History of Present Illness, all other systems have been reviewed and are negative or noncontributory. Assessment/Plan 1. Weight loss (R63.4: Abnormal weight loss) will check abd/pelvic ct scan for further evaluation; will call patient with results. Ordered: Creatinine CT Abdomen/Pelvis w/ Contrast 2. Irritable bowel syndrome (K58.9: Irritable bowel syndrome without diarrhea) high fiber diet and fiber supplement bid; call with problems/questions 3. Frequent loose stools (R19.7: Diarrhea, unspecified) see # 2 Ordered: Creatinine CT Abdomen/Pelvis w/ Contrast Follow-up No qualifying data available Problem List/Past Medical History Ongoing Anemia due to gastrointestinal blood loss Anticoagulated Anxiety Aortic insufficiency Atherosclerotic heart disease BMI 25.0-25.9,adult BPH with urinary obstruction CAD (coronary artery disease) Change in bowel habits Chronic prostatitis Diabetes Diabetic peripheral neuropathy Diarrhea Dysuria Elevated PSA Enlarged prostate with urinary obstruction Fecal incontinence Former smoker Frequent loose stools History of myocardial infarction Hx-TIA (transient ischemic attack) Hypertension Hypertriglyceridemia Hypothyroidism IBS (irritable bowel syndrome) Incomplete bladder emptying Irritable bowel syndrome Microscopic hematuria Mitral regurgitation Peripheral vascular disease Pulmonary HTN Right carotid artery stenosis Severe aortic stenosis Spinal stenosis of lumbar region with radiculopathy Ventricular hypertrophy Weight loss Historical No qualifying data Procedure/Surgical History Colonoscopy (09/29/2022), EGD - Esophagogastroduodenoscopy (09/29/2022), Cystoscopy (12/22/2021), AVR - Aortic valve replacement, CABG - Coronary artery bypass graft, Carotid endarterectomy, Cystoscopy, Endarterectomy, Stent placement, Stent placement. Medications aspirin 81 mg Oral EC Tab, 162 mg= 2 tab(s), Oral, Daily atorvastatin 40 mg Tab, 40 mg= 1 tab(s), Oral, Daily carvedilol 25 mg Tab, 25 mg= 1 tab(s), Oral, BID cetirizine 10 mg Tab, 10 mg= 1 tab(s), Oral, Daily clopidogrel, 75 mg, Oral, Daily dutasteride 0.5 mg Cap, 0.5 mg= 1 cap(s), Oral, Daily, 3 refills glimepiride 4 mg Tab, 8 mg= 2 tab(s), Oral, Daily Januvia 100 mg Tab, 100 mg= 1 tab(s), Oral, Daily levothyroxine 75 mcg (0.075 mg) Tab, 75 mcg= 1 tab(s), Oral, Daily lisinopril 10 mg Tab, 10 mg= 1 tab(s), Oral, BID pantoprazole 40 mg Oral EC Tab, 40 mg= 1 tab(s), Oral, Daily spironolactone 25 mg Tab, 25 mg= 1 tab(s), Oral, Daily tamsulosin 0.4 mg Cap, 0.4 mg= 1 cap(s), Oral, Daily Allergies No Known Allergies No Known Medication Allergies Social History Alcohol - Denies Alcohol Use, 09/22/2022 Substance Abuse - Denies Substance Abuse, 09/22/2022 Tobacco Former smoker, quit more than 30 days ago Tobacco Use:. Never Smokeless Tobacco Use:. Cigarettes, 1 per day. Started age 18.0 Years., 09/22/2022 Family History Heart disease: Father. Immunizations Vaccine Date Status influenza virus vaccine, inactivated 05/12/2021 Recorded SARS-CoV-2 (COVID-19) mRNA-1273 vaccine 05/12/2021 Recorded SARS-CoV-2 (COVID-19) mRNA BNT-162b2 vax 11/11/2020 Recorded SARS-CoV-2 (COVID-19) mRNA BNT-162b2 vax 10/20/2020 Recorded influenza virus vaccine, inactivated 02/25/2020 Recorded influenza virus vaccine, inactivated 03/10/2017 Recorded inf (more content not included)... Normal [facility] Comment on above: Result Comment: Elec tronically Signed By: GURWINDER LUU, Tevin Echavarria\.br\Date and Time Signed: 10/06/22 16:12 EDT Outside Colonoscopyon 2022 Outside Colonoscopy [id number]:127 Normal [facility] POINT OF CARE GLUCOSEon 09-13 Glucose [Mass/Vol] 132 mg/dL Critically high 74-106 T [facility] Comment on above: Performed By: #### P OCGLUC #### [facility] [address] [address] [address] Lety Torres Consent for Procedure/Surger yon 09-23-2022 Consent for Procedure/Surgery [id number]:127 Normal [facility] Ambulatory Visit Summaryon 0 09-22-2022 Ambulatory Visit Summary PATRICK RUTHERFORD :1940 Visit Date:09/22/2022 Ambulatory Visit Instructions Your Care Team Attending Physician - GURWINDER LUU, Tevin Echavarria Primary Care Physician - Shreyas Adame MD This Is Your Medications List aspirin (aspirin 81 mg Oral EC Tab) atorvastatin (atorvastatin 40 mg Tab) carvedilol (carvedilol 25 mg Tab) cetirizine (cetirizine 10 mg Tab) clopidogrel dutasteride (dutasteride 0.5 mg Cap) glimepiride (glimepiride 4 mg Tab) levothyroxine (levothyroxine 75 mcg (0.075 mg) Tab) lisinopril (lisinopril 10 mg Tab) pantoprazole (pantoprazole 40 mg Oral EC Tab) sitagliptin (Januvia 100 mg Tab) spironolactone (spironolactone 25 mg Tab) tamsulosin (tamsulosin 0.4 mg Cap) Procedures Performed Cystoscopy (12/22/2021), AVR - Aortic valve replacement, CABG - Coronary artery bypass graft, Carotid endarterectomy, Cystoscopy, Endarterectomy, Stent placement, Stent placement. Discharge Vitals Heart Rate (Peripheral) 72 Respiratory Rate 16 Blood Pressure 156/70 Height 167.64 cm Height 66 in Weight 71.2 kg Weight 156.64 lb BMI 25.34 What to do next Scheduled Follow-Up Appointments Tuesday 3:00 PM EDT With: Ted CEJA MD Where: [facility] [place] Normal [facility] Physician Referralon 023 Physician Referral [id number]:127 Normal [facility] Screenson 06-10-2022 Screens [id number]:127 Normal [facility] Patient Educationon 06-09-19 23 Patient Education Infectious Disease Prostatitis Prostatitis is swelling of the prostate gland. The prostate helps to make semen. It is below a man's bladder, in front of the rectum. There are different types of prostatitis. Follow these instructions at home: ? Take iiru-huw-aulvfwj and prescription medicines only as told by your doctor. ? If you were prescribed an antibiotic medicine, take it as told by your doctor. Do not stop taking the antibiotic even if you start to feel better. ? If your doctor prescribed exercises, do them as directed. ? Take sitz baths as told by your doctor. To take a sitz bath, sit in warm water that is deep enough to cover your hips and butt. ? Keep all follow-up visits as told by your doctor. This is important. Contact a doctor if: ? Your symptoms get worse. ? You have a fever. Get help right away if: ? You have chills. ? You feel sick to your stomach (nauseous). ? You throw up (vomit). ? You feel light-headed. ? You feel like you might pass out (faint). ? You cannot pee (urinate). ? You have blood or clumps of blood (blood clots) in your pee (urine). This information is not intended to replace advice given to you by your health care provider. Make sure you discuss any questions you have with your health care provider. Document Released: 10/31/2012 Document Revised: 04/14/2018 Document Reviewed: 01/20/2017 Elsevier Patient Education ? 2019 [employer]. Urology Benign Prostatic Hyperplasia Benign prostatic hyperplasia (BPH) is an enlarged prostate gland that is caused by the normal aging process and not by cancer. The prostate is a walnut-sized gland that is involved in the production of semen. It is located in front of the rectum and below the bladder. The bladder stores urine and the urethra is the tube that carries the urine out of the body. The prostate may get bigger as a man gets older. An enlarged prostate can press on the urethra. This can make it harder to pass urine. The build-up of urine in the bladder can cause infection. Back pressure and infection may progress to bladder damage and kidney (renal) failure. What are the causes? This condition is part of a normal aging process. However, not all men develop problems from this condition. If the prostate enlarges away from the urethra, urine flow will not be blocked. If it enlarges toward the urethra and compresses it, there will be problems passing urine. What increases the risk? This condition is more likely to develop in men over the age of 50 years. What are the signs or symptoms? Symptoms of this condition include: ? Getting up often during the night to urinate. ? Needing to urinate frequently during the day. ? Difficulty starting urine flow. ? Decrease in size and strength of your urine stream. ? Leaking (dribbling) after urinating. ? Inability to pass urine. This needs immediate treatment. ? Inability to completely empty your bladder. ? Pain when you pass urine. This is more common if there is also an infection. ? Urinary tract infection (UTI). How is this diagnosed? This condition is diagnosed based on your medical history, a physical exam, and your symptoms. Tests will also be done, such as: ? A post-void bladder scan. This measures any amount of urine that may remain in your bladder after you finish urinating. ? A digital rectal exam. In a rectal exam, your health care provider checks your prostate by putting a lubricated, gloved finger into your rectum to feel the back of your prostate gland. This exam detects the size of your gland and any abnormal lumps or growths. ? An exam of your urine (urinalysis). ? A prostate specific antigen (PSA) screening. This is a blood test used to screen for prostate cancer. ? An ultrasound. This test uses sound waves to electronically produce a picture of your prostate gland. Your health care provider may refer you to a specialist in kidney and prostate diseases (urologist). How is this treated? Once symptoms begin, your health care provider will monitor your condition (active surveillance or watchful waiting). Treatment for this condition will depend on the severity of your condition. Treatment may include: ? Observation and yearly exams. This may be the only treatment needed if your condition and symptoms are mild. ? Medicines to relieve your symptoms, including: ? Medicines to shrink the prostate. ? Medicines to relax the muscle of the prostate. ? Surgery in severe cases. Surgery may include: ? Prostatectomy. In this procedure, the prostate tissue is removed completely through an open incision or with a laparoscope or robotics. ? Transurethral resection of the prostate (TURP). In this procedure, a tool is inserted through the opening at the tip of the penis (urethra). It is used to cut away tissue of the inner core of the prostate. The pieces are removed through the sa (more content not included)... Normal [facility] Urology Office/Clinic Noteon 06-09-2022 Urology Office/Clinic Note Chief Complaint f/u to Cysto HPI Staff PRW pt here today to follow up to Cysto done 12/22/21 due to BPH & Chronic Prostatitis. [place] ER 12/25/21 due to not urinating. PVR at that time 120ml. Tx for UTI w/Rocephin and admitted. *Dutasteride 0.5mg & Tamsulosin 0.4mg QD therapy. IPSS 13 Occasional burning at the start of voiding, once stream is going it quits. Small stream. Voiding at least q2hrs during the day, occasionally wakes up 1x/night to void. Occasional leaking, when he waits too long. History of Present Illness Pt is here for follow up to Cysto on 12/22/2021 due to BPH Reviewed UA, PVR and IPSS (13) Pt has no associated symptoms, no fever, no chills, no flank pain. I have reviewed the previous health record information and history for this patient from Dr. Ceja Review of Systems PHQ Score Initial Depression Screen Score: 0 no fever, chills, malaise, myalgia. no rash/lesions. no chest pain, palpitations, or SOB. no abdominal pain, nausea, vomiting. no unilateral calf swelling, redness, pain Physical Exam Vitals & Measurements HR: 68(Peripheral) RR: 16 BP: 138/74 HT: 66 in HT: 168 cm WT: 78 kg WT: 171.6 lb BMI: 27.64 General: nontoxic, NAD Mouth: moist mucosa Lungs: normal respiratory effort Cardio: regular rate, good distal perfusion Abdomen: nondistended, no suprapubic distention or tenderness, no CVA tenderness Neurologic: Grossly normal Skin: No rashes or suspicious lesions Assessment/Plan 1. BPH with urinary obstruction (N40.1: Benign prostatic hyperplasia with lower urinary tract symptoms) Pt is taking tamsulosin and finasterideand is mostly satisfiedwith overall symptom control. Pt is experiencing noside effects. IPSS 13 QOL 2 We discussed current dose and optional changes: increasing tamsulosin to BID. Don't want to do this as it would increase risk for dizziness/orthostatic hypotension. I discussed with the patient the different surgical treatment options for bladder outlet obstruction including TURP, Rezum, and Urolift. The patient prefers to continue the BPH medications at this time as opposed to surgical intervention - having a lot of life stressors right now (daughter due to breast cancer, broke hip and is in senior care, son has MS and is wheelchair bound). 2. Chronic prostatitis (N41.1: Chronic prostatitis) occasional burning. none recently. 3. Incomplete bladder emptying (R33.9: Retention of urine, unspecified) Pt's PVR in office today was 165cc. similar to previously. pt has had 1 UTI since last visit. this is rare for him. he was instructed to contact our office should he get another UTI. Other obstructive and reflux uropathy (N13.8: Other obstructive and reflux uropathy) Will return for follow up in 6 months Follow-up With When Contact Information SAMANTHA CASTRO PA-C, URL In 6 months [address] [place] [address] Additional Instructions: Patient Education Prostatitis, Qldb-ka-Avwu Benign Prostatic Hyperplasia Documentation recorded by the nedra Parker accurately reflects the services(s) I performed and decisions made by me. Authenticated by Samantha Castro PA-C on 06/09/2022 15:34:56. Brionna Cancino, personally scribed for Samantha Castro PA-C on 06/09/2022 15:30:01. . Problem List/Past Medical History Ongoing Anticoagulated BPH with urinary obstruction Chronic prostatitis Diabetes Dysuria Elevated PSA Enlarged prostate with urinary obstruction Former smoker Hypertension Incomplete bladder emptying Microscopic hematuria Historical No qualifying data Procedure/Surgical History Cystoscopy (12/22/2021), AVR - Aortic valve replacement, CABG - Coronary artery bypass graft, Cystoscopy, Endarterectomy, Gastric bypass, Stent placement, Stent placement. Medications aspirin 81 mg Chew Tab, 81 mg= 1 tab(s), Chewed, Daily atorvastatin 40 mg Tab, 40 mg= 1 tab(s), Oral, Daily carvedilol 25 mg Tab clopidogrel, 75 mg, Oral, Daily dutasteride 0.5 mg Cap, 0.5 mg= 1 cap(s), Oral, Daily, 3 refills glimepiride 4 mg Tab, 4 mg= 1 tab(s), Oral, Daily Januvia 100 mg Tab lisinopril 2.5 mg Tab, 2.5 mg= 1 tab(s), Oral, BID metformin, 1000 mg, Oral, BID metoprolol 50 mg ER Tab, 50 mg= 1 tab(s), Oral, BID Onglyza 2.5 mg oral tablet, 2.5 mg= 1 tab(s), Oral, Daily pantoprazole 40 mg Oral EC Tab, 40 mg= 1 tab(s), Oral, Daily spironolactone 25 mg Tab tamsulosin 0.4 mg Cap, 0.4 mg= 1 cap(s), Oral, Daily Thyroxine Sodium Pentahydrate, See Instructions Vitox, See Instructions Allergies No Known Medication Allergies Social History Tobacco Former smoker, quit more than 30 days ago Tobacco Use:. Never Smokeless Tobacco Use:. Cigarettes, 06/09/2022 Family History Heart disease: Father. Immunizations Vaccine Date Status influenza virus vaccine, inactivated 05/12/2021 Recorded SARS-CoV-2 (COVID-19) [id number] vaccine (more content not included)... Normal [facility] Comment on above: Result Comment: Elec tronically Signed By: MICHAEL MOROCHO, SAMANTHA Ramírez\Date and Time Signed: 06/09/22 15:36 EST Follow-Upon 03-29-2022 Follow-Up [id number] Patrick Rutherford M 1940 M Date Provider Department Center 03/29/2022 JelaniCINDYTHALIA ZAVALAEN BHAVANIASEEMIL [facility] No family history on file Level of Service:59568 HI POSTOP FOLLOW UP VISIT RELATED TO ORIGINAL PX Reason for Visit and Comments: Post-op [483] - TCAR follow up Normal [facility] Office Visiton 03-08-2022 Follow-up visit [id number] Patrick Rutherford M 1940 Date Provider Department Center 03/08/2022 VALERYTRIPP TRIPLETT HVCVASENDO [facility] No family history on file Level of Service:68839 HI POSTOP FOLLOW UP VISIT RELATED TO ORIGINAL PX Reason for Visit and Comments: Post-op [483] - Post op TCAR on 02/22/22 [facility] BASIC METABOLIC PANELon 02-13 Anion gap [Moles/Vol] 6 mmol/L Normal <=30 [facility] Comment on above: Performed By: #### L [id number] ####[facility] (BEAKER)[address] [place] [address] Calcium [Mass/Vol] 8.8 mg/dL Normal 8.6-10.3 [facility] Comment on above: Performed By: #### L [id number] ####[facility] ([facility]AKER)[address] [place] [address] Chloride [Moles/Vol] 108 mmol/L High 98-107 [facility] Comment on above: Performed By: #### L [id number] ####[facility] (BEAKER)[address] [place] [address] CO2 [Moles/Vol] 24 mmol/L Normal 21-31 [facility] Comment on above: Performed By: #### L [id number] ####[facility] (BEAKER)[address] [place] [address] Creatinine [Mass/Vol] 1.18 mg/dL Normal 0.70-1.30 [facility] Comment on above: Performed By: #### L [id number] ####[facility] ([facility])[address] [place] [address] GLOMERULAR FILTRATION RATE ML/MIN/1.73 SQ M.PREDICTED 56.7 mL/min/1.73m*2 Low >60.0 [facility] Comment on above: Result Comment: [facility]???s estimated glomerular filtration rate (eGFR) will no longer include consideration of race in its calculation. The National Kidney Foundation???s eGFR Task Force developed new recommendations for the estimation of the glomerular filtration rate in the [place] They recommend immediate implementation of the new equation refit without the race variable in all laboratories because the calculation does not include race. In addition to not including race in the calculation and reporting, it included diversity in its development, and has acceptable performance characteristics and potential consequences that do not disproportionately affect any one group of individuals. Performed By: #### L [id number] ####[facility] ([facility])[address] [place] [address] Glucose [Mass/Vol] 56 mg/dL Low 70-100 [facility] Comment on above: Performed By: #### L [id number] ####[facility] ([facility])[address] [place] [address] Potassium [Moles/Vol] 3.9 mmol/L Normal 3.5-5.1 [facility] Comment on above: Performed By: #### L [id number] ####[facility] ([facility])[address] [place] [address] Sodium [Moles/Vol] 138 mmol/L Normal 136-145 [facility] Comment on above: Performed By: #### L [id number] ####[facility] ([facility])[address] [place] [address] Urea nitrogen [Mass/Vol] 20 mg/dL Normal 7-25 [facility] Comment on above: Performed By: #### L [id number] ####[facility] ([facility] [place] [address] UREA NITROGEN/CREATININE (MASS RATIO) IN SER/PLAS 16.[address] [facility] Comment on above: Performed By: #### L [id number] ####[facility] ([facility])[address] [place] [address] CBCon 02-24-2022 Erythrocyte distribution width (RBC) [Ratio] 14.0 % Normal 11.5-15.0 [facility] Comment on above: Performed By: #### L [id number] ####[facility] ([facility])[address] [place] [address] ERYTHROCYTE MEAN CORPUSCULAR HEMOGLOBIN CONCENTRATION (G/DL) BY AUTOMATED 32.7 g/dL Normal 32.0-35.0 [facility] Comment on above: Performed By: #### L [id number] ####[facility] ([facility])[address] [place] [address] Hematocrit (Bld) [Volume fraction] 27.5 % Low 39.0-55.0 [facility] Comment on above: Performed By: #### L [id number] ####[facility] ([facility])[address] [place] [address] Hemoglobin (Bld) [Mass/Vol] 9.0 g/dL Low 13.0-17.0 [facility] Comment on above: Performed By: #### L [id number] ####[facility] ([facility])[address] [place] [address] MCH (RBC) [Entitic mass] 30.4 pg Normal 27.0-33.0 [facility] Comment on above: Performed By: #### L [id number] ####[facility] ([facility] [place] [address] MCV (RBC) [Entitic vol] 92.9 fL Normal 82.0-98.0 [facility] Comment on above: Performed By: #### L [id number] ####[facility] ([facility] [place] [address] PLATELETS (10*3/UL) IN BLOOD AUTOMATED COUNT 282 10*3/uL Normal 150-400 [facility] Comment on above: Performed By: #### L [id number] ####[facility] ([facility])[address] [place] [address] RBC (Bld) [#/Vol] 2.96 10*6/uL Low 4.20-5.70 [facility] Comment on above: Performed By: #### L [id number] ####[facility] ([facility])[address] [place] [address] WBC (Bld) [#/Vol] 9.28 10*3/uL Normal 4.00-10.60 [facility] Comment on above: Performed By: #### L [id number] ####[facility] ([facility])[address] [place] [address] MAGNESIUMon 02-24-2022 Magnesium [Mass/Vol] 1.9 mg/dL Normal 1.9-2.7 [facility] Comment on above: Performed By: #### L [id number] #### [facility] ([facility]) [address] [place] [address] NURSNOTEon 02-24-2022 NURSNOTE Attempted to call re port to [facility] with no pickup. RN will be happy to give report if facility chooses to call upon their receipt of the patient. Normal [facility] PHOSPHORUSon 02-24-2022 Magnesium [Mass/Vol] 4.7 mg/dL Normal 2.5-5.0 [facility] Comment on above: Performed By: #### L [id number] ####[facility] ([facility])[address] [place] [address] POCT GLUCOSE METER UNSOLICIT ED RESULTSon 02-24-2022 Glucose [Mass/Vol] 144 mg/dL High 70-105 [facility] Comment on above: Result Comment: [email or web address] Performed By: #### L [id number] ####[facility] (BEAKER)[address] [place] [address] Glucose [Mass/Vol] 196 mg/dL High 70-105 [facility] Comment on above: Result Comment: [email or web address] Performed By: #### L [id number] ####[facility] (BEAKER)[address] [place] [address] Glucose [Mass/Vol] 113 mg/dL High 70-105 [facility] Comment on above: Result Comment: [email or web address] Performed By: #### L [id number] ####[facility] (BEAKER)[address] [place] [address] BASIC METABOLIC PANELon 10- Anion gap [Moles/Vol] 7 mmol/L Normal <=30 [facility] Comment on above: Performed By: #### L [id number] ####[facility] (BEAKER)[address] [place] [address] Calcium [Mass/Vol] 9.1 mg/dL Normal 8.6-10.3 [facility] Comment on above: Performed By: #### L [id number] ####[facility] (BEAKER)[address] [place] [address] Chloride [Moles/Vol] 109 mmol/L High 98-107 [facility] Comment on above: Performed By: #### L [id number] ####[facility] (BEAKER)[address] [place] [address] CO2 [Moles/Vol] 22 mmol/L Normal 21-31 [facility] Comment on above: Performed By: #### L [id number] ####[facility] (BEAKER)[address] [place] [address] Creatinine [Mass/Vol] 0.88 mg/dL Normal 0.70-1.30 [facility] Comment on above: Performed By: #### L [id number] ####[facility] (BEAKER)[address] [place] [address] GLOMERULAR FILTRATION RATE ML/MIN/1.73 SQ M.PREDICTED 79.4 mL/min/1.73m*2 Normal >60.0 [facility] Comment on above: Result Comment: [facility]???s estimated glomerular filtration rate (eGFR) will no longer include consideration of race in its calculation. The National Kidney Foundation???s eGFR Task Force developed new recommendations for the estimation of the glomerular filtration rate in the [place] They recommend immediate implementation of the new equation refit without the race variable in all laboratories because the calculation does not include race. In addition to not including race in the calculation and reporting, it included diversity in its development, and has acceptable performance characteristics and potential consequences that do not disproportionately affect any one group of individuals. Performed By: #### L [id number] ####[facility] ([facility])[address] [place] [address] Glucose [Mass/Vol] 91 mg/dL Normal 70-100 [facility] Comment on above: Performed By: #### L [id number] ####[facility] ([facility])[address] [place] [address] Potassium [Moles/Vol] 4.3 mmol/L Normal 3.5-5.1 [facility] Comment on above: Performed By: #### L [id number] ####[facility] ([facility])[address] [place] [address] Sodium [Moles/Vol] 138 mmol/L Normal 136-145 [facility] Comment on above: Performed By: #### L [id number] ####[facility] ([facility])[address] [place] [address] Urea nitrogen [Mass/Vol] 14 mg/dL Normal 7-25 [facility] Comment on above: Performed By: #### L [id number] ####[facility] ([facility])[address] [place] [address] UREA NITROGEN/CREATININE (MASS RATIO) IN SER/PLAS 15.[address] [facility] Comment on above: Performed By: #### L [id number] ####[facility] ([facility])[address] [place] [address] CBCon 02-23-2022 Erythrocyte distribution width (RBC) [Ratio] 14.3 % Normal 11.5-15.0 [facility] Comment on above: Performed By: #### L [id number] ####[facility] (BEAKER)[address] [address] ERYTHROCYTE MEAN CORPUSCULAR HEMOGLOBIN CONCENTRATION (G/DL) BY AUTOMATED 34.7 g/dL Normal 32.0-35.0 [facility] Comment on above: Performed By: #### L [id number] ####[facility] ([facility] [address] Hematocrit (Bld) [Volume fraction] 30.0 % Low 39.0-55.0 [facility] Comment on above: Performed By: #### L [id number] ####[facility] ([facility] [place] [address] Hemoglobin (Bld) [Mass/Vol] 10.4 g/dL Low 13.0-17.0 [facility] Comment on above: Performed By: #### L [id number] ####[facility] (BEAKER)[address] [address] MCH (RBC) [Entitic mass] 31.5 pg Normal 27.0-33.0 [facility] Comment on above: Performed By: #### L [id number] ####[facility] (BEAKER)[address] [address] MCV (RBC) [Entitic vol] 90.9 fL Normal 82.0-98.0 [facility] Comment on above: Performed By: #### L [id number] ####[facility] (BEAKER)[address] [place] [address] PLATELETS (10*3/UL) IN BLOOD AUTOMATED COUNT 306 10*3/uL Normal 150-400 [facility] Comment on above: Performed By: #### L [id number] ####[facility] (BEAKER)[address] [address] RBC (Bld) [#/Vol] 3.30 10*6/uL Low 4.20-5.70 [facility] Comment on above: Performed By: #### L [id number] ####[facility] ([facility])[address] [place] [address] WBC (Bld) [#/Vol] 10.55 10*3/uL Normal 4.00-10.60 [facility] Comment on above: Performed By: #### L [id number] ####[facility] ([facility])[address] [place] [address] Documentationon 02-23-2022 Documentation [id number] Patrick Rutherford M 1940 M Date Provider Department Center 02/23/2022 JENNIFER COYNE [facility] Medical C No family history on file Normal [facility] MAGNESIUMon 02-23-2022 Magnesium [Mass/Vol] 1.4 mg/dL Low 1.9-2.7 [facility] Comment on above: Performed By: #### L [id number] ####[facility] ([facility])[address] [place] [address] NURSNOTEon 02-23-2022 NURSNOTE Last heparin dose gi christopher at 0042. 0600 dose rescheduled to 0900 , discussed with pharmacy. Normal [facility] NURSNOTE Tylenol given as ord ered, Pt received oral medication well without issue. Pt is able to swallow, and speak in full sentences without difficulty. Airway intact, no trach deviation noted. Normal [facility] PHOSPHORUSon 02-23-2022 Magnesium [Mass/Vol] 4.5 mg/dL Normal 2.5-5.0 [facility] Comment on above: Performed By: #### L [id number] ####[facility] ([facility])[address] [place] [address] POCT GLUCOSE METER UNSOLICIT ED RESULTSon 02-23-2022 Glucose [Mass/Vol] 99 mg/dL Normal 70-105 [facility] Comment on above: Result Comment: [email or web address] Performed By: #### L [id number] ####[facility] (BEAKER)[address] [place] [address] Glucose [Mass/Vol] 190 mg/dL High 70-105 [facility] Comment on above: Result Comment: [email or web address] Performed By: #### L [id number] ####[facility] ([facility])[address] [place] [address] Glucose [Mass/Vol] 108 mg/dL High 70-105 [facility] Comment on above: Result Comment: [email or web address] Performed By: #### L [id number] ####[facility] ([facility])[address] [place] [address] Glucose [Mass/Vol] 132 mg/dL High 70-105 [facility] Comment on above: Result Comment: [email or web address] Performed By: #### L [id number] ####[facility] ([facility])[address] [place] [address] PROTIME-INRon 02-23-2022 INR IN PPP BY COAGULATION ASSAY 1.08 Normal 0.90-1.10 [facility] Comment on above: Result Comment: ACCC P RECOMMENDED INR FOR WARFARIN THERAPY CONDITION INR PROPHYLAXIS OF VENOUS THROMBOSIS 2-3 (HIGH-RISK SURGERY) TREATMENT OF VENOUS THROMBOSIS 2-3 TREATMENT OF PULMONARY EMBOLISM 2-3 PREVENTION OF SYSTEMIC EMBOLISM: 2-3 ACUTE MYOCARDIAL INFARCTION TISSUE HEART VALVES VALVULAR HEART DISEASE ATRIAL FIBRILLATION RECURRENT SYSTEMIC EMBOLISM MECHANICAL HEART VALVE 2.5-3.5 FROM: ORAL ANTICOAGULANTS. MECHANISM OF ACTION, CLINICAL EFFECTIVENESS, AND OPTIMAL THERAPEUTIC RANGE. CHEST 1995;108:231S-246S. Performed By: #### L [id number] ####[facility] (BEAKER)[address] [place] [address] PROTHROMBIN TIME (PT) IN PPP BY COAGULATION ASSAY 13.9 Seconds Normal 12.3-14.8 [facility] Comment on above: Performed By: #### L [id number] ####[facility] (BEAKER)[address] [place] [address] TROPONIN Ion 02-23-2022 Troponin I.cardiac [Mass/Vol] 0.02 ng/mL Normal 0.00-0.04 [facility] Comment on above: Result Comment: REFE RENCE RANGES: 0.00 - 0.14 ng/mL NEGATIVE 0.15 - 0.25 ng/mL INDETERMINATE > 0.25 ng/mL INDICATIVE OF AN M.I. Performed By: #### L [id number] ####[facility] ([facility])[address] [place] [address] XR CHEST 1 VIEWon 02-23-2022 XR CHEST 1 VIEW Single view chest History: Difficulty breathing, shortness of breath Comparison: 08/23/2016 Findings: Single portable view of the chest. Stable cardiomediastinal silhouette. There is atherosclerotic thoracic aorta. No focal consolidation large effusion or pneumothorax. IMPRESSION: No evidence of acute cardiopulmonary process. Electronically signed: Tevin Prieto. Normal [facility] CONSULTon 02-22-2022 CONSULT -------- Attestation signed by Alonso Tuttle MD at 02/23/2022 12:03 PM I personally saw and examined the patient on the same date of service as fellow Dalia. I discussed the findings and therapeutic plan with the fellow Dalia. I agree with the documentation, except for any edits/updates below. Teaching Physician's Revisions: Blood pressure, pain and glycemic control. Monitor the mental status closely. Coordination of care with vascular surgery service Adult ICU Consult note Patient - Patrick Rutherford Age - 81 y.o. - 1940 [facility] # - [id number] Date of Admission - 02/22/2022 12:06 PM Reason For Consult Status post right carotid artery endarterectomy ICU monitoring and strict blood pressure control. Referring Provider: Vascular surgery team History Of Present Illness Patrick Rutherford is a 81 y.o. male presenting for elective right carotid artery Endo colectomy preoperative the patient denies any acute complaints. ICU team was consulted for ICU monitoring and blood pressure control with target of systolic blood pressure below 150 mmHg as per vascular team. Patient was seen and examined at bedside in the PACU. Patient is alert and oriented. Denies having any issues except for sore and his right side of the neck at the site of surgery. The nurse was concerned about the site of the surgery as it was minimally swollen and there is some serosanguineous discharges on the dressing over the surgical wound. Patient was able to communicate that he does not have any difficulty swallowing or difficulty breathing. Vital signs were all were within normal limit and blood pressure was around 160/80. The nurse was instructed to communicate with the vascular team regarding surgical wound issue. Past Medical History He has a past medical history of Carotid artery stenosis, Cataract, Coronary artery disease, COVID-19 (01/14/2022), Diabetes mellitus ([facility]), Fractures, GERD (gastroesophageal reflux disease), History of transfusion, Hyperlipidemia, Hypertension, Hypothyroidism, Kidney disease, and TIA (transient ischemic attack). Surgical History He has a past surgical history that includes Coronary artery bypass graft (08/20/2016); Cardiac catheterization (07/01/2016); Carotid endarterectomy; Carotid stent; Aortic valve replacement; Coronary stent placement; CT heart coronary angiogram (10/13/2016); CT head angio w and wo IV contrast (11/02/2021); and CT neck angio w and wo IV contrast (11/02/2021). Family History No family history on file. Social History He reports that he quit smoking about 52 years ago. His smoking use included cigarettes. He has never used smokeless tobacco. He reports that he does not currently use alcohol. He reports that he does not currently use drugs. Allergies Patient has no known allergies. Medications Medications Prior to Admission Medication Sig Dispense Refill Last Dose aspirin 81 mg EC tablet Take 81 mg by mouth in the morning and at bedtime. 02/22/2022 at 0900 atorvastatin (Lipitor) 40 mg tablet Take 1 tablet by mouth in the morning. 02/21/2022 at 2100 carvedilol (Coreg) 25 mg tablet Take 1 tablet twice a day by oral route for 14 days. 02/22/2022 at 0900 clopidogrel (Plavix) 75 mg tablet Take 1 tablet by mouth in the morning. 02/22/2022 at 0900 glimepiride (Amaryl) 2 mg tablet Take 4 mg by mouth in the morning and at bedtime. 02/21/2022 at 0800 hydrOXYzine HCL (Atarax) 25 mg tablet Take 1 tablet every day by oral route for 90 days. 02/21/2022 at 0800 levothyroxine (Synthroid, Levoxyl) 75 mcg tablet Take 1 tablet every day by oral route for 30 days. 02/22/2022 at 0900 lisinopril 5 mg tablet Take 5 mg by mouth in the morning and at bedtime. 02/21/2022 at 0800 metFORMIN (Glucophage) 500 mg tablet Take 1,000 mg by mouth in the morning and at bedtime. And 1000 mg in AM 02/21/2022 at 0800 pantoprazole (ProtoNix) 40 mg EC tablet Take 1 tablet by mouth in the morning. 02/22/2022 at 0900 SITagliptin (Januvia) 100 mg tablet Take 1 tablet every day by oral route for 90 days. 02/21/2022 at 0800 tamsulosin (Flomax) 0.4 mg 24 hr capsule Take 1 capsule every day by oral route for 90 days. 02/21/2022 at 0800 multivitamin tablet Take 1 tablet by mouth in the morning. Active Hospital Medications Medication Dose Route Frequency Last Admin acetaminophen 650 mg oral q6h HOLLI aspirin 325 mg oral Once Followed by [START ON 02/23/2022] aspirin 81 mg oral Daily with breakfast atorvastatin 40 mg oral Daily carvedilol 25 mg oral BID with meals clopidogrel 75 mg oral Daily glucose 24 g oral PRN Or dextrose 50 % in water (D50W) 25 g intravenous PRN diphenhydrAMINE 25 mg intravenous q15 min PRN docusate sodium 100 mg oral BID fentaNYL 25 mcg intravenous q5 min PRN fentaNYL (more content not included)... Normal [facility] HPon 02-22-2022 [facility] General Surgery HISTORY & PHYSICAL Chief Complaint: Right carotid stenosis History of Present Illness: Patrick Rutherford is a 81 y.o. male Right carotid stenosis presented today to undergo TCAR vs CEA. The patient currently has no acute complains. Review of Systems Constitutional: Negative. HENT: Negative. Eyes: Negative. Respiratory: Negative. Cardiovascular: Negative. Gastrointestinal: Negative. Endocrine: Negative. Genitourinary: Negative. Musculoskeletal: Negative. Skin: Negative. Allergic/Immunologic: Negative. Neurological: Negative. Hematological: Negative. Psychiatric/Behavioral: Negative. Past Medical History: Diagnosis Date Carotid artery stenosis Cataract Coronary artery disease COVID-19 01/14/2022 Diabetes mellitus (CMS/HCC) Fractures RIGHT ARM GERD (gastroesophageal reflux disease) History of transfusion Hyperlipidemia Hypertension Hypothyroidism Kidney disease TIA (transient ischemic attack) Past Surgical History: Procedure Laterality Date AORTIC VALVE REPLACEMENT CARDIAC CATHETERIZATION 07/01/2016 CAROTID ENDARTERECTOMY CAROTID STENT CORONARY ARTERY BYPASS GRAFT 08/20/2016 QUADRUPLE BYPASS CORONARY STENT PLACEMENT PATIENT THINKS JUST [address] HEAD ANGIO W AND WO IV CONTRAST 11/02/2021 CT HEAD ANGIO W AND WO IV CONTRAST ALVARENGA CONVERSION CT HEART CORONARY ANGIOGRAM 10/13/2016 CT HEART CORONARY ANGIOGRAM ALVARENGA CONVERSION CT NECK ANGIO W AND WO IV CONTRAST 11/02/2021 CT NECK ANGIO W AND WO IV CONTRAST ALVARENGA CONVERSION No Known Allergies Current Facility-Administered Medications: [COMPLETED] sodium chloride 0.9 % infusion, 30 mL/hr, intravenous, Once, Remi Sabillon MD, Last Rate: 30 mL/hr at 02/22/22 1233, 30 mL/hr at 02/22/22 1233 Insert peripheral IV, , , Once AND Saline lock IV, , , Once AND sodium chloride flush 10 mL, 10 mL, intravenous, q8h PRN, Remi Sabillon MD Social History Socioeconomic History Marital status: Spouse name: Not on file Number of children: Not on file Years of education: Not on file Highest education level: Not on file Occupational History Not on file Tobacco Use Smoking status: Former Types: Cigarettes Quit date: 1970 Years since quittin.8 Smokeless tobacco: Never Substance and Sexual Activity Alcohol use: Not Currently Drug use: Not Currently Sexual activity: Not on file Other Topics Concern Not on file Social History Narrative Not on file Social Determinants of Health Financial Resource Strain: Not on file Food Insecurity: Not on file Transportation Needs: Not on file Physical Activity: Not on file Stress: Not on file Social Connections: Not on file Intimate Partner Violence: Not on file Housing Stability: Not on file No family history on file. Physical Exam Constitutional: Appearance: Normal appearance. He is normal weight. HENT: Head: Normocephalic and atraumatic. Right Ear: External ear normal. Left Ear: External ear normal. Nose: Nose normal. Mouth/Throat: Pharynx: Oropharynx is clear. Eyes: Extraocular Movements: Extraocular movements intact. Conjunctiva/sclera: Conjunctivae normal. Pupils: Pupils are equal, round, and reactive to light. Cardiovascular: Rate and Rhythm: Normal rate and regular rhythm. Pulses: Normal pulses. Pulmonary: Effort: Pulmonary effort is normal. Breath sounds: Normal breath sounds. Abdominal: General: Bowel sounds are normal. There is no distension. Palpations: Abdomen is soft. Tenderness: There is no abdominal tenderness. Musculoskeletal: General: Normal range of motion. Cervical back: Normal range of motion and neck supple. Skin: General: Skin is warm. Capillary Refill: Capillary refill takes less than 2 seconds. Neurological: General: No focal deficit present. Mental Status: He is alert and oriented to person, place, and time. Vital Signs: Blood pressure (!) 192/68, pulse 78, temperature 35.6 ???C (96.1 ???F), temperature source Temporal, resp. rate 20, height 1.676 m (5' 5.98 ), weight 69.7 kg (153 lb 9.6 oz), SpO2 99 %. Admission Weight: Weight: 69.7 kg (153 lb 9.6 oz) Labs: Lab Results Component Value Date WBC 10.62 (H) 02/19/2022 HGB 11.4 (L) 02/19/2022 HCT 34.4 (L) 02/19/2022 MCV 92.7 02/19/2022 PLT 349 02/19/2022 Lab Results Component Value Date CALCIUM 9.3 02/19/2022 NA 137 02/19/2022 K 4.7 02/19/2022 CO2 22 02/19/2022 CL 106 02/19/2022 BUN 25 02/19/2022 CREATININE 1.16 02/19/2022 No results found for: AMYLASE No results found for: LIPASE No results found for: ALT, AST, GGT, ALKPHOS, LABBILI Lab Results Component Value Date INR 1.00 02/19/2022 Imaging: CT neck angio w and wo IV contrast Narrative: [facility] Department of Radiology [address] [place] [id number] === (more content not included)... Normal [facility] NURSNOTEon 02-22-2022 NURSNOTE Vascular at bedside assessing patient. Vascular changed patient dressing. No new orders at this time. Evy Randhawa HOSPITAL UNIT COORDINATOR Normal [facility] NURSNOTE Since arrival to PAC U patients neck has measure 22 inch. Patient neck is now measuring 22.5 inches. Patient denies difficulty swallowing and difficulty breathing. Vascular team answered page from Jeremy (surgery) and is coming to see patient at bedside. Evy Randhawa HOSPITAL UNIT COORDINATOR Normal [facility] REGINA Attempted to page va scular multiple time over the last half hour. Patients R side of neck feels firm and noted to have serosanguineous drainage on dressing. MICU doctor at bedside. Patient stable. Patient states no difficulty swallowing or breathing. MICU doctor states no new orders at this time and to continue to page vascular. Evy Randhawa HOSPITAL UNIT COORDINATOR Normal [facility] NURSCARLOS CONTRAST: 40ML [address] [facility] NURSNOTE ACT: 1618: BASELINE - 122 1647: ACT 212 1658: ACT [address] [facility] OPNOTEon 02-22-2022 OPNOTE Right Transcarotid A rtery Revascularization (TCAR) Date: 02/22/2022 Location: [facility] OR Name: Patrick Rutherford, : 1940, Diagnosis Pre-op Diagnosis * Preoperative examination, unspecified [Z01.818] * Severe Stenosis of right carotid artery [I65.21] Post-op Diagnosis * Preoperative examination, unspecified [Z01.818] * Stenosis of right carotid artery [I65.21] Procedures Right Transcarotid Artery Revascularization (TCAR) Surgeons * Jazz Diamond - Primary Abdullla Alawan Procedure Summary Anesthesia: General ASA: III Estimated Blood Loss: 25 mL Total IV Fluids: mL Drains: Urethral Catheter Non-latex 16 Fr. (Active) Implants Type Name Action Serial No. Stent ENCOUTE TCAR STENT SYSTEM 8MM X 40MM Implanted [id number] Staff: Personnel Officer: Low Cerrato RN Scrub Person: Amaya Batista, CERT PHARMACY TECH; Zoya Harris; Samantha Meadows, ROSANA Remote Broadcast Technician: Fernandez Jarquin CSA Orientdaniel Personnel Officer: Aiyana Moody Indications: Patrick Rutherford is an 81 y.o. male who is having surgery for Preoperative examination, unspecified [Z01.818] Stenosis of right carotid artery [I65.21]. Procedure Details: The patient was seen in the preoperative area. The risks, benefits, complications, treatment options, non-operative alternatives, expected recovery and outcomes were discussed with the patient. The possibilities of reaction to medication, pulmonary aspiration, injury to surrounding structures, bleeding, recurrent infection, the need for additional procedures, failure to diagnose a condition, and creating a complication requiring transfusion or operation were discussed with the patient. The patient concurred with the proposed plan, giving informed consent. The site of surgery was properly noted/marked if necessary per policy. The patient has been actively warmed in preoperative area. Preoperative antibiotics are not indicated. Venous thrombosis prophylaxis are not indicated. Patient put in a supine position given general anesthesia with intubation. After timeout a small incision was made in the supraclavicular area on the right side between the platysmal head deepened down to subcutaneous tissue with then the muscles and identifying the common carotid artery isolated around an umbilical tape.. Percutaneous access was made to the right common femoral vein. The venous part of the TCAR was placed in the venous circulation. Angiogram was done for the carotid artery. Then a small catheter was placed in the right common carotid artery directed into the external carotid artery then the trocar for the TCAR catheter was inserted. An angiogram was done. The cervical portion and the groin portion were conducted. After that the wire was placed up through the area of stenosis in the internal carotid artery for the bypredilatation using a Nacho balloon 4.5 x 4 cm. After that an 8 x 40 mm In Royte stent was placed in the internal carotid artery extending to the common carotid artery followed by an angiogram in 2 angles. After that the blood was evacuated from the tubing the sheath was removed from the groin. The U stitch that was applied before the procedure closed the hole of access in the common carotid artery after that the sternocleidomastoid muscle were approximated followed by closing the skin. Patient tolerated procedure very well with no complication. Patient was given heparin during the procedure and ACT was checked. In addition he was given glycopyrrolate 0.2 mg. Blood loss was minimal. Findings: Severe right internal carotid artery stenosis about 95 to 99%, with calcification. Complications: None; patient tolerated the procedure well. Disposition: PACU - hemodynamically stable. Condition: stable Jazz Diamond Normal [facility] POCT ACTIVATED CLOTTING TIME UNSOLICITED RESULTSon 02-22-2022 POC ACTIVATED CLOTTING TIME 237 sec High 82-152 [facility] Comment on above: Performed By: #### L [id number] ####[facility] (BEAKER)[address] [place] [address] POC ACTIVATED CLOTTING TIME 212 sec High 82-152 [facility] Comment on above: Performed By: #### L [id number] ####[facility] (BEAKER)[address] [place] [address] POC ACTIVATED CLOTTING TIME 122 sec Normal 82-152 [facility] Comment on above: Performed By: #### L [id number] ####[facility] ([facility])[address] [place] [address] POCT GLUCOSE METER UNSOLICIT ED RESULTSon 02-22-2022 Glucose [Mass/Vol] 129 mg/dL High 70-105 [facility] Comment on above: Result Comment: elsymadina ruffinConor Performed By: #### L [id number] ####[facility] ([facility])[address] [place] [address] Glucose [Mass/Vol] 149 mg/dL High 70-105 [facility] Comment on above: Result Comment: tamiko preeti Performed By: #### L [id number] ####[facility] ([facility])[address] [place] [address] Glucose [Mass/Vol] 239 mg/dL High 70-105 [facility] Comment on above: Result Comment: espa [email or web address] Performed By: #### L [id number] ####[facility] ([facility])[address] [place] [address] APTTon 02-19-2022 ACTIVATED PARTIAL THROMBOPLASTIN TIME IN PPP BY COAGULATION ASSAY 25.4 Seconds Normal 25.0-35.0 [facility] Comment on above: Performed By: #### L [id number] ####[facility] ([facility])[address] [place] [address] BASIC METABOLIC PANELon Anion gap [Moles/Vol] 9 mmol/L Normal <=30 [facility] Comment on above: Performed By: #### L [id number] ####[facility] ([facility])[address] [place] [address] Calcium [Mass/Vol] 9.3 mg/dL Normal 8.6-10.3 [facility] Comment on above: Performed By: #### L [id number] ####[facility] ([facility])[address] [place] [address] Chloride [Moles/Vol] 106 mmol/L Normal 98-107 [facility] Comment on above: Performed By: #### L [id number] ####[facility] (BEAKER)[address] [place] [address] CO2 [Moles/Vol] 22 mmol/L Normal 21-31 [facility] Comment on above: Performed By: #### L [id number] ####[facility] [place] [address] Creatinine [Mass/Vol] 1.16 mg/dL Normal 0.70-1.30 [facility] Comment on above: Performed By: #### L [id number] ####[facility] ([facility])[address] [place] [address] GLOMERULAR FILTRATION RATE ML/MIN/1.73 SQ M.PREDICTED 57.9 mL/min/1.73m*2 Low >[address]0 [facility] Comment on above: Result Comment: The [facility]???s estimated glomerular filtration rate (eGFR) will no longer include consideration of race in its calculation. The National Kidney Foundation???s eGFR Task Force developed new recommendations for the estimation of the glomerular filtration rate in the [place] They recommend immediate implementation of the new equation refit without the race variable in all laboratories because the calculation does not include race. In addition to not including race in the calculation and reporting, it included diversity in its development, and has acceptable performance characteristics and potential consequences that do not disproportionately affect any one group of individuals. Performed By: #### L [id number] ####[facility] ([facility] [place] [address] Glucose [Mass/Vol] 253 mg/dL High 70-100 [facility] Comment on above: Performed By: #### L [id number] ####[facility] (BEAKER)[address] [place] [address] Potassium [Moles/Vol] 4.7 mmol/L Normal 3.5-5.1 [facility] Comment on above: Performed By: #### L [id number] ####[facility] (BEAKER)[address] [place] [address] Sodium [Moles/Vol] 137 mmol/L Normal 136-145 [facility] Comment on above: Performed By: #### L [id number] ####[facility] ([facility] [place] [address] Urea nitrogen [Mass/Vol] 25 mg/dL Normal 7-25 [facility] Comment on above: Performed By: #### L [id number] ####[facility] ([facility] [place] [address] UREA NITROGEN/CREATININE (MASS RATIO) IN SER/PLAS 21.[address] [facility] Comment on above: Performed By: #### L [id number] ####[facility] ([facility] [place] [address] CBCon 02-19-2022 Erythrocyte distribution width (RBC) [Ratio] 13.9 % Normal 11.5-15.0 [facility] Comment on above: Performed By: #### L [id number] ####[facility] ([facility])[address] [place] [address] ERYTHROCYTE MEAN CORPUSCULAR HEMOGLOBIN CONCENTRATION (G/DL) BY AUTOMATED 33.1 g/dL Normal 32.0-35.0 [facility] Comment on above: Performed By: #### L [id number] ####[facility] ([facility] [place] [address] Hematocrit (Bld) [Volume fraction] 34.4 % Low 39.0-55.0 [facility] Comment on above: Performed By: #### L [id number] ####[facility] ([facility] [place] [address] Hemoglobin (Bld) [Mass/Vol] 11.4 g/dL Low 13.0-17.0 [facility] Comment on above: Performed By: #### L [id number] ####[facility] (BEAKER)[address] [place] [address] MCH (RBC) [Entitic mass] 30.7 pg Normal 27.0-33.0 [facility] Comment on above: Performed By: #### L [id number] ####[facility] ([facility] [place] [address] MCV (RBC) [Entitic vol] 92.7 fL Normal 82.0-98.0 [facility] Comment on above: Performed By: #### L [id number] ####[facility] ([facility])[address] [place] [address] PLATELETS (10*3/UL) IN BLOOD AUTOMATED COUNT 349 10*3/uL Normal 150-400 [facility] Comment on above: Performed By: #### L [id number] ####[facility] ([facility])[address] [place] [address] RBC (Bld) [#/Vol] 3.71 10*6/uL Low 4.20-5.70 [facility] Comment on above: Performed By: #### L [id number] ####[facility] ([facility])[address] [place] [address] WBC (Bld) [#/Vol] 10.62 10*3/uL High 4.00-10.60 [facility] Comment on above: Performed By: #### L [id number] ####[facility] ([facility])[address] [place] [address] MRSA/MSSA DNA NASALon 2021 MRSA DNA Negative Normal Negative, Invalid [facility] Comment on above: Performed By: #### L [id number] ####[facility] ([facility])[address] [place] [address] MSSA DNA Negative Normal Negative, Invalid [facility] Comment on above: Performed By: #### L [id number] ####[facility] ([facility])[address] [place] [address] PROTIME-INRon 02-19-2022 INR IN PPP BY COAGULATION ASSAY 1.00 Normal 0.90-1.10 [facility] Comment on above: Result Comment: ACCC P RECOMMENDED INR FOR WARFARIN THERAPY CONDITION INR PROPHYLAXIS OF VENOUS THROMBOSIS 2-3 (HIGH-RISK SURGERY) TREATMENT OF VENOUS THROMBOSIS 2-3 TREATMENT OF PULMONARY EMBOLISM 2-3 PREVENTION OF SYSTEMIC EMBOLISM: 2-3 ACUTE MYOCARDIAL INFARCTION TISSUE HEART VALVES VALVULAR HEART DISEASE ATRIAL FIBRILLATION RECURRENT SYSTEMIC EMBOLISM MECHANICAL HEART VALVE 2.5-3.5 FROM: ORAL ANTICOAGULANTS. MECHANISM OF ACTION, CLINICAL EFFECTIVENESS, AND OPTIMAL THERAPEUTIC RANGE. CHEST 1995;108:231S-246S. Performed By: #### L [id number] ####[facility] (BEAKER)[address] [place] [address] PROTHROMBIN TIME (PT) IN PPP BY COAGULATION ASSAY 13.2 Seconds Normal 12.3-14.8 [facility] Comment on above: Performed By: #### L [id number] ####[facility] (AKER)[address] [place] [address] SARS-COV-2 [facility] 02-19-2022 SARS-CoV-2 (COVID-19) RNA ISABELLA+probe Ql (Unsp spec) Not detected Normal Not Detected [facility] Comment on above: Result Comment: Not detected does not preclude SARS-CoV-2 infection and should not be used as the sole basis for patient management decisions. Not detected results must be combined with clinical observations, patient history, and epidemiological information. The Aptima SARS-CoV-2 assay is a nucleic acid amplification test intended for the qualitative detection of RNA from SARS-CoV-2 isolated and purified from nasopharyngeal (ELECTRICIAN), oropharyngeal (OP), nasal swab, sputum, and bronchoalveolar lavage (BAL) specimens from patients with signs and symptoms of infection who are suspected of COVID-19. Results are for the identification of SARS-CoV-2 RNA. The SARS-CoV-2 RNA is generally detectable during the acute phase of infection. The Aptima SARS-CoV-2 Assay on the [place] [employer] system is intended for use by laboratory personnel specifically instructed and trained in the operation of the [place] [employer] system. The Aptima SARS-CoV-2 assay is only for use under the Food and Drug Administration Emergency Use Authorization. Testing is limited to laboratories certified under the Clinical Laboratory Improvement Amendments of 1988 (CLIA), 42 U.S.C. ???263a, to perform high complexity tests. Performed By: #### L [id number] ####[facility] (BEAKER)[address] [place] [address] TYPE AND SCREENon 02-19-[address]22 AB [address] Negative Normal [facility] Comment on above: Performed By: #### L [id number] ####[facility], ABO group Nom (Bld) A Normal [facility] Comment on above: Performed By: #### L [id number] ####[facility], RH TYPE IN BLOOD Negative Normal [facility] Comment on above: Performed By: #### L [id number] ####[facility], Orders Onlyon 02-17-2022 Orders Only [id number] Rutherford,Oral M 1940 M Date Provider Department Center 02/17/2022 JUSTIN FELICIANO [facility] Medical C No family history on file Normal [facility] Orders Onlyon 02-16-2022 Orders Only [id number] Rutherford,Oral M 1940 M Date Provider Department Center 02/16/2022 AAKASH LOBO [facility] Medical C No family history on file Normal [facility] Orders Onlyon 02-01-2022 Orders Only [id number] Rutherford,Oral M 1940 M Date Provider Department Center 02/01/2022 BEVERLY SORIANO HVCVASEEMIL [facility] No family history on file Normal [facility] CBC AUTO DIFFon 12-28-2021 BASO # 0.1 103/ul Normal 0.0-0.1 [facility] Comment on above: Performed By: #### P OCGLUC #### [facility] [address] [address] [address] Lety Torres Basophils/100 WBC (Bld) 0.7 % Normal 0.2-2.0 [facility] Comment on above: Performed By: #### P OCGLUC #### [facility] [address] [place] [address] Dr. Lety Torres EO # 0.4 103/ul Normal 0.0-0.7 [facility] Comment on above: Performed By: #### P OCGLUC #### [facility] [address] [place] [address] Dr. Lety Torres Eosinophils/100 WBC (Bld) 4.8 % Normal 0.9-7.0 [facility] Comment on above: Performed By: #### P OCGLUC #### [facility] [address] [place] [address] Dr. Lety Torres Erythrocyte distribution width (RBC) [Ratio] 13.7 % Normal 11.0-15.0 [facility] Comment on above: Performed By: #### P OCGLUC #### [facility] [address] [place] [address] Dr. Lety Torres Hematocrit (Bld) [Volume fraction] 29.7 % Critically low 42.0-54.0 [facility] Comment on above: Performed By: #### P OCGLUC #### [facility] [address] [place] [address] Dr. Lety Torres Hemoglobin (Bld) [Mass/Vol] 9.6 g/dL Critically low 14.0-18.0 [facility] Comment on above: Performed By: #### P OCGLUC #### [facility] [address] [place] [address] Dr. Lety Torres IG # 0.11 10e3/ul Critically high 0.00-0.03 [facility] Comment on above: Performed By: #### P OCGLUC #### [facility] [address] [place] [address] Dr. Lety Torres IG % 1.3 % Critically high 0.0-0.5 [facility] Comment on above: Performed By: #### P OCGLUC #### [facility] [address] [address] [address] Lety Torres LYMPH # 2.7 103/ul Normal 1.2-3.8 [facility] Comment on above: Performed By: #### P OCGLUC #### [facility] [address] [address] [address] Lety Torres Lymphocytes/100 WBC (Bld) 32.5 % Normal 20.5-60.0 [facility] Comment on above: Performed By: #### P OCGLUC #### [facility] [address] [address] [address] Lety Torres MANUAL DIFF REQ NO Normal [facility] Comment on above: Performed By: #### P OCGLUC #### [facility] [address] [place] [address] Dr. Lety Torres MCH (RBC) [Entitic mass] 29.8 pg Normal 25.9-34.0 [facility] Comment on above: Performed By: #### P OCGLUC #### [facility] [address] [place] [address] Dr. Lety Torres MCHC (RBC) [Mass/Vol] 32.3 g/dL Normal 29.9-35.2 [facility] Comment on above: Performed By: #### P OCGLUC #### [facility] [address] [place] [address] Dr. Lety Torres MCV (RBC) [Entitic vol] 92.2 fL Normal 80.0-94.0 [facility] Comment on above: Performed By: #### P OCGLUC #### [facility] [address] [place] [address] Dr. Lety Torres MONO # 0.8 103/ul Normal 0.3-0.8 [facility] Comment on above: Performed By: #### P OCGLUC #### [facility] [address] [place] [address] Dr. Lety Torres Monocytes/100 WBC (Bld) 10.0 % Normal 1.7-12.0 [facility] Comment on above: Performed By: #### P OCGLUC #### [facility] [address] [address] [address] Lety Torres NEUT # 4.2 103/ul Normal 1.4-6.5 [facility] Comment on above: Performed By: #### P OCGLUC #### [facility] [address] [address] [address] Lety Torres Neutrophils/100 WBC (Bld) 50.7 % Normal 43.0-75.0 [facility] Comment on above: Performed By: #### P OCGLUC #### [facility] [address] [place] [address] Dr. Lety Torres Platelet mean volume (Bld) [Entitic vol] 9.7 fL Normal 9.5-13.5 [facility] Comment on above: Performed By: #### P OCGLUC #### [facility] [address] [place] [address] Dr. Lety Torres PLT 333 103/ul Normal 150-450 [facility] Comment on above: Performed By: #### P OCGLUC #### [facility] [address] [place] [address] Dr. Lety Torres RBC 3.22 106/ul Critically low 4.70-6.10 [facility] Comment on above: Performed By: #### P OCGLUC #### [facility] [address] [place] [address] Dr. Lety Torres WBC 8.3 103/ul Normal 4.0-11.0 [facility] Comment on above: Performed By: #### P OCGLUC #### [facility] [address] [place] [address] Dr. Lety Torres CULTURE BLOODon 12-28-2021 Microscopic examination of blood, culture Culture Observations: Aerobic and Anaerobic bottle positive. Culture Observations: BCID- proteus species Culture Observations: Called HERVED to Jacinta Morel in [facility] at 2014 on 12/25 Isolate 1 Proteus mirabilis Growth of ORGANISM 1 Proteus mirabilis ANTIBIOTIC M.I.C RX STATUS Ampicillin <=2 S F Ampicillin/Sulbactam <=2 S F Piperacillin/Tazobactam <=4 S F Cefazolin <=4 S F Ceftazidime <=1 S F Ceftriaxone <=1 S F Ertapenem <=0.5 S F Imipenem 2 S F Amikacin <=2 S F Gentamicin <=1 S F Tobramycin <=1 S F Ciprofloxacin <=0.25 S F Levofloxacin <=0.12 S F Trimethoprim/Sulfamethoxazol e <=20 S F Normal [facility] Comment on above: Performed By: #### B [id number] #### [facility] [address] [place] [address] Dr. Lety Torres PROF 14(COMP METB)on 022 Albumin [Mass/Vol] 2.5 g/dL Critically low 3.4-5.0 [facility] Comment on above: Performed By: #### P OCGLUC #### [facility] [address] [place] [address] Dr. Lety Torres Albumin/Globulin [Mass ratio] 0.6 {ratio} Normal [facility] Comment on above: Performed By: #### P OCGLUC #### [facility] [address] [place] [address] Dr. Lety Torres ALP [Catalytic activity/Vol] 85 U/L Normal 46-116 [facility] Comment on above: Performed By: #### P OCGLUC #### [facility] [address] [place] [address] Dr. Lety Torres ALT [Catalytic activity/Vol] 65 U/L Critically high 16-63 [facility] Comment on above: Performed By: #### P OCGLUC #### [facility] [address] [place] [address] Dr. Lety Torres Anion gap [Moles/Vol] 14.4 mmol/L Normal [facility] Comment on above: Performed By: #### P OCGLUC #### [facility] [address] [place] [address] Dr. Lety Torres AST [Catalytic activity/Vol] 30 U/L Normal 15-37 [facility] Comment on above: Performed By: #### P OCGLUC #### [facility] [address] [place] [address] Dr. Lety Torres Bilirubin [Mass/Vol] 0.3 mg/dL Normal 0.2-1.0 [facility] Comment on above: Performed By: #### P OCGLUC #### [facility] [address] [address] [address] Lety Torres Calcium [Mass/Vol] 8.6 mg/dL Normal 8.5-10.1 [facility] Comment on above: Performed By: #### P OCGLUC #### [facility] [address] [address] [address] eLty Torres Chloride [Moles/Vol] 107 mmol/L Normal 98-107 [facility] Comment on above: Performed By: #### P OCGLUC #### [facility] [address] [address] [address] Lety Torres CO2 [Moles/Vol] 22.7 mmol/L Normal 21.0-32.0 [facility] Comment on above: Performed By: #### P OCGLUC #### [facility] [address] [address] [address] Lety Torres Creatinine [Mass/Vol] 1.13 mg/dL Normal 0.70-1.30 [facility] Comment on above: Performed By: #### P OCGLUC #### [facility] [address] [place] [address] Dr. Lety Torres EGFR-AF NICARAGUAN >60 Normal >=60 [facility] Comment on above: Performed By: #### P OCGLUC #### [facility] [address] [address] [address] Lety Torres EGFR-NON AF NICARAGUAN >60 Normal >=60 [facility] Comment on above: Performed By: #### P OCGLUC #### [facility] [address] [address] [address] Lety Torres Globulin (S) [Mass/Vol] 4.0 g/dL Normal [facility] Comment on above: Performed By: #### P OCGLUC #### [facility] [address] [address] [address] Lety Torres Glucose [Mass/Vol] 188 mg/dL Critically high 74-106 T [facility] Comment on above: Performed By: #### P OCGLUC #### [facility] [address] [address] [address] Lety Torres Potassium [Moles/Vol] 4.1 mmol/L Normal 3.5-5.1 [facility] Comment on above: Performed By: #### P OCGLUC #### [facility] [address] [address] [address] Lety Torres Protein [Mass/Vol] 6.5 g/dL Normal 6.4-8.2 [facility] Comment on above: Performed By: #### P OCGLUC #### [facility] [address] [address] [address] Lety Torres Sodium [Moles/Vol] 140 mmol/L Normal 136-145 [facility] Comment on above: Performed By: #### P OCGLUC #### [facility] [address] [address] [address] Lety Torres Urea nitrogen [Mass/Vol] 20.0 mg/dL Critically high 7.0-18.0 [facility] Comment on above: Performed By: #### P OCGLUC #### [facility] [address] [place] [address] Dr. Lety Torres Urea nitrogen/Creatinine [Mass ratio] 17.7 mg/mg Normal [facility] Comment on above: Performed By: #### P OCGLUC #### [facility] [address] [address] [address] Lety Torres CBC AUTO DIFFon 12-27-2021 BASO # 0.0 103/ul Normal 0.0-0.1 [facility] Comment on above: Performed By: #### P OCGLUC #### [facility] [address] [place] [address] Dr. Lety Torres Basophils/100 WBC (Bld) 0.4 % Normal 0.2-2.0 [facility] Comment on above: Performed By: #### P OCGLUC #### [facility] [address] [place] [address] Dr. Lety Torres EO # 0.2 103/ul Normal 0.0-0.7 [facility] Comment on above: Performed By: #### P OCGLUC #### [facility] [address] [place] [address] Dr. Lety Torres Eosinophils/100 WBC (Bld) 2.5 % Normal 0.9-7.0 [facility] Comment on above: Performed By: #### P OCGLUC #### [facility] [address] [place] [address] Dr. Lety Torres Erythrocyte distribution width (RBC) [Ratio] 14.4 % Normal 11.0-15.0 [facility] Comment on above: Performed By: #### P OCGLUC #### [facility] [address] [place] [address] Dr. Lety Torres Hematocrit (Bld) [Volume fraction] 29.7 % Critically low 42.0-54.0 [facility] Comment on above: Performed By: #### P OCGLUC #### [facility] [address] [place] [address] Dr. Lety Torres Hemoglobin (Bld) [Mass/Vol] 9.6 g/dL Critically low 14.0-18.0 [facility] Comment on above: Performed By: #### P OCGLUC #### [facility] [address] [place] [address] Dr. Lety Torres IG # 0.06 10e3/ul Critically high 0.00-0.03 [facility] Comment on above: Performed By: #### P OCGLUC #### [facility] [address] [place] [address] Dr. Lety Torres IG % 0.6 % Critically high 0.0-0.5 [facility] Comment on above: Performed By: #### P OCGLUC #### [facility] [address] [place] [address] Dr. Lety Torres LYMPH # 2.0 103/ul Normal 1.2-3.8 [facility] Comment on above: Performed By: #### P OCGLUC #### [facility] [address] [place] [address] Dr. Lety Torres Lymphocytes/100 WBC (Bld) 20.8 % Normal 20.5-60.0 [facility] Comment on above: Performed By: #### P OCGLUC #### [facility] [address] [place] [address] Dr. Lety Torres MANUAL DIFF REQ NO Normal [facility] Comment on above: Performed By: #### P OCGLUC #### [facility] [address] [place] [address] Dr. Lety Torres MCH (RBC) [Entitic mass] 30.4 pg Normal 25.9-34.0 [facility] Comment on above: Performed By: #### P OCGLUC #### [facility] [address] [place] [address] Dr. Lety Torres MCHC (RBC) [Mass/Vol] 32.3 g/dL Normal 29.9-35.2 [facility] Comment on above: Performed By: #### P OCGLUC #### [facility] [address] [place] [address] Dr. Lety Torres MCV (RBC) [Entitic vol] 94.0 fL Normal 80.0-94.0 [facility] Comment on above: Performed By: #### P OCGLUC #### [facility] [address] [place] [address] Dr. Lety Torres MONO # 0.9 103/ul Critically high 0.3-0.8 [facility] Comment on above: Performed By: #### P OCGLUC #### [facility] [address] [place] [address] Dr. Lety Torres Monocytes/100 WBC (Bld) 9.6 % Normal 1.7-12.0 [facility] Comment on above: Performed By: #### P OCGLUC #### [facility] [address] [place] [address] Dr. Lety Torres NEUT # 6.3 103/ul Normal 1.4-6.5 [facility] Comment on above: Performed By: #### P OCGLUC #### [facility] [address] [place] [address] Dr. Lety Torres Neutrophils/100 WBC (Bld) 66.1 % Normal 43.0-75.0 [facility] Comment on above: Performed By: #### P OCGLUC #### [facility] [address] [place] [address] Dr. Lety Torres Platelet mean volume (Bld) [Entitic vol] 10.1 fL Normal 9.5-13.5 [facility] Comment on above: Performed By: #### P OCGLUC #### [facility] [address] [address] [address] Lety Torres PLT 274 103/ul Normal 150-450 [facility] Comment on above: Performed By: #### P OCGLUC #### [facility] [address] [place] [address] Dr. Lety Torres RBC 3.16 106/ul Critically low 4.70-6.10 [facility] Comment on above: Performed By: #### P OCGLUC #### [facility] [address] [place] [address] Dr. Lety Torres WBC 9.5 103/ul Normal 4.0-11.0 [facility] Comment on above: Performed By: #### P OCGLUC #### [facility] [address] [place] [address] Dr. Lety Torres POINT OF CARE GLUCOSEon 12-14 Glucose [Mass/Vol] 247 mg/dL Critically high 74-[address] [facility] Comment on above: Performed By: #### P OCGLUC #### [facility] [address] [place] [address] Dr. Lety Torres Glucose [Mass/Vol] 135 mg/dL Critically high 74-[address] [facility] Comment on above: Performed By: #### P OCGLUC #### [facility] [address] [place] [address] Dr. Lety Torres Glucose [Mass/Vol] 124 mg/dL Critically high 74-[address] [facility] Comment on above: Performed By: #### P OCGLUC #### [facility] [address] [place] [address] Dr. Lety Torres Glucose [Mass/Vol] 98 mg/dL Normal 74-106 [facility] Comment on above: Performed By: #### P OCGLUC #### [facility] [address] [address] [address] Lety Torres Glucose [Mass/Vol] 145 mg/dL Critically high 74-106 T [facility] Comment on above: Performed By: #### C MP #### [facility] [address] [address] [address] Lety Torres PROF 14(COMP METB)on 022 Albumin [Mass/Vol] 2.4 g/dL Critically low 3.4-5.0 [facility] Comment on above: Performed By: #### C MP #### [facility] [address] [place] [address] Dr. Lety Torres Albumin/Globulin [Mass ratio] 0.6 {ratio} Normal [facility] Comment on above: Performed By: #### C MP #### [facility] [address] [place] [address] Dr. Lety Torres ALP [Catalytic activity/Vol] 84 U/L Normal 46-116 [facility] Comment on above: Performed By: #### C MP #### [facility] [address] [place] [address] Dr. Lety Torres ALT [Catalytic activity/Vol] 69 U/L Critically high 16-63 [facility] Comment on above: Performed By: #### C MP #### [facility] [address] [place] [address] Dr. Lety Torres Anion gap [Moles/Vol] 14.3 mmol/L Normal [facility] Comment on above: Performed By: #### C MP #### [facility] [address] [address] [address] Lety Torres AST [Catalytic activity/Vol] 49 U/L Critically high 15-37 [facility] Comment on above: Performed By: #### C MP #### [facility] [address] [place] [address] Dr. Lety Torres Bilirubin [Mass/Vol] 0.3 mg/dL Normal 0.2-1.0 [facility] Comment on above: Performed By: #### C MP #### [facility] [address] [address] [address] Lety Torres Calcium [Mass/Vol] 8.4 mg/dL Critically low 8.5-10.1 [facility] Comment on above: Performed By: #### C MP #### [facility] [address] [address] [address] Lety Torres Chloride [Moles/Vol] 109 mmol/L Critically high 98-107 [facility] Comment on above: Performed By: #### C MP #### [facility] [address] [address] [address] Lety Torres CO2 [Moles/Vol] 22.9 mmol/L Normal 21.0-32.0 [facility] Comment on above: Performed By: #### C MP #### [facility] [address] [address] [address] Lety Torres Creatinine [Mass/Vol] 1.33 mg/dL Critically high 0.70-1.30 [facility] Comment on above: Performed By: #### C MP #### [facility] [address] [address] [address] Lety Torres EGFR-AF NICARAGUAN >60 Normal >=60 [facility] Comment on above: Performed By: #### C MP #### [facility] [address] [address] [address] Lety Torres EGFR-NON AF NICARAGUAN 51 mL/min/1.73m2 Critically low >=60 [facility] Comment on above: Performed By: #### C MP #### [facility] [address] [address] [address] Lety Torres Globulin (S) [Mass/Vol] 3.9 g/dL Normal [facility] Comment on above: Performed By: #### C MP #### [facility] [address] [address] [address] Lety Torres Glucose [Mass/Vol] 220 mg/dL Critically high 74-106 T [facility] Comment on above: Performed By: #### C MP #### [facility] [address] [address] [address] Lety Torres Potassium [Moles/Vol] 4.2 mmol/L Normal 3.5-5.1 [facility] Comment on above: Performed By: #### C MP #### [facility] [address] [address] [address] Lety Torres Protein [Mass/Vol] 6.3 g/dL Critically low 6.4-8.2 [facility] Comment on above: Performed By: #### C MP #### [facility] [address] [place] [address] Dr. Lety Torres Sodium [Moles/Vol] 142 mmol/L Normal 136-145 [facility] Comment on above: Performed By: #### C MP #### [facility] [address] [place] [address] Dr. Lety Torres Urea nitrogen [Mass/Vol] 18.0 mg/dL Normal 7.0-18.0 [facility] Comment on above: Performed By: #### C MP #### [facility] [address] [place] [address] Dr. Lety Torres Urea nitrogen/Creatinine [Mass ratio] 13.5 mg/mg Normal [facility] Comment on above: Performed By: #### C MP #### [facility] [address] [place] [address] Dr. Lety Torres CBC AUTO DIFFon 12-26-2021 BASO # 0.0 103/ul Normal 0.0-0.1 [facility] Comment on above: Performed By: #### C BC #### [facility] [address] [place] [address] Dr. Lety Torres Basophils/100 WBC (Bld) 0.2 % Normal 0.2-2.0 [facility] Comment on above: Performed By: #### C BC #### [facility] [address] [place] [address] Dr. Lety Torres EO # 0.0 103/ul Normal 0.0-0.7 [facility] Comment on above: Performed By: #### C BC #### [facility] [address] [place] [address] Dr. Lety Torres Eosinophils/100 WBC (Bld) 0.2 % Critically low 0.9-7.0 [facility] Comment on above: Performed By: #### C BC #### [facility] [address] [place] [address] Dr. Lety Torres Erythrocyte distribution width (RBC) [Ratio] 14.4 % Normal 11.0-15.0 [facility] Comment on above: Performed By: #### C BC #### [facility] [address] [place] [address] Dr. Lety Torres Hematocrit (Bld) [Volume fraction] 29.9 % Critically low 42.0-54.0 [facility] Comment on above: Performed By: #### C BC #### [facility] [address] [place] [address] Dr. Lety Torres Hemoglobin (Bld) [Mass/Vol] 9.6 g/dL Critically low 14.0-18.0 [facility] Comment on above: Performed By: #### C BC #### [facility] [address] [place] [address] Dr. Lety Torres IG # 0.11 10e3/ul Critically high 0.00-0.03 [facility] Comment on above: Performed By: #### C BC #### [facility] [address] [place] [address] Dr. Lety Torres IG % 0.7 % Critically high 0.0-0.5 [facility] Comment on above: Performed By: #### C BC #### [facility] [address] [place] [address] Dr. Lety Torres LYMPH # 2.0 103/ul Normal 1.2-3.8 [facility] Comment on above: Performed By: #### C BC #### [facility] [address] [place] [address] Dr. Lety Torres Lymphocytes/100 WBC (Bld) 12.3 % Critically low 20.5-60.0 [facility] Comment on above: Performed By: #### C BC #### [facility] [address] [place] [address] Dr. Lety Torres MANUAL DIFF REQ NO Normal [facility] Comment on above: Performed By: #### C BC #### [facility] [address] [place] [address] Dr. Lety Torres MCH (RBC) [Entitic mass] 30.1 pg Normal 25.9-34.0 [facility] Comment on above: Performed By: #### C BC #### [facility] [address] [place] [address] Dr. Lety Torres MCHC (RBC) [Mass/Vol] 32.1 g/dL Normal 29.9-35.2 [facility] Comment on above: Performed By: #### C BC #### [facility] [address] [place] [address] Dr. Lety Torres MCV (RBC) [Entitic vol] 93.7 fL Normal 80.0-94.0 [facility] Comment on above: Performed By: #### C BC #### [facility] [address] [place] [address] Dr. Lety Torres MONO # 1.5 103/ul Critically high 0.3-0.8 [facility] Comment on above: Performed By: #### C BC #### [facility] [address] [place] [address] Dr. Lety Torres Monocytes/100 WBC (Bld) 9.3 % Normal 1.7-12.0 [facility] Comment on above: Performed By: #### C BC #### [facility] [address] [place] [address] Dr. Lety Torres NEUT # 12.5 103/ul Critically high 1.4-6.5 [facility] Comment on above: Performed By: #### C BC #### [facility] [address] [place] [address] Dr. Lety Torres Neutrophils/100 WBC (Bld) 77.3 % Critically high 43.0-75.0 [facility] Comment on above: Performed By: #### C BC #### [facility] [address] [place] [address] Dr. Lety Torres Platelet mean volume (Bld) [Entitic vol] 9.5 fL Normal 9.5-13.5 [facility] Comment on above: Performed By: #### C BC #### [facility] [address] [place] [address] Dr. Lety Torres PLT 245 103/ul Normal 150-450 [facility] Comment on above: Performed By: #### C BC #### [facility] [address] [place] [address] Dr. Lety Torres RBC 3.19 106/ul Critically low 4.70-6.10 [facility] Comment on above: Performed By: #### C BC #### [facility] [address] [place] [address] Dr. Lety Torres WBC 16.2 103/ul Critically high 4.0-11.0 [facility] Comment on above: Performed By: #### C BC #### [facility] [address] [place] [address] Dr. Lety Torres BASO # 0.0 103/ul Normal 0.0-0.1 [facility] Comment on above: Performed By: #### P OCGLUC #### [facility] [address] [place] [address] Dr. Lety Torres Basophils/100 WBC (Bld) 0.3 % Normal 0.2-2.0 [facility] Comment on above: Performed By: #### P OCGLUC #### [facility] [address] [place] [address] Dr. Lety Torres EO # 0.1 103/ul Normal 0.0-0.7 [facility] Comment on above: Performed By: #### P OCGLUC #### [facility] [address] [place] [address] Dr. Lety Torres Eosinophils/100 WBC (Bld) 0.3 % Critically low 0.9-7.0 [facility] Comment on above: Performed By: #### P OCGLUC #### [facility] [address] [place] [address] Dr. Lety Torres Erythrocyte distribution width (RBC) [Ratio] 14.5 % Normal 11.0-15.0 [facility] Comment on above: Performed By: #### P OCGLUC #### [facility] [address] [place] [address] Dr. Lety Torres Hematocrit (Bld) [Volume fraction] 27.0 % Critically low 42.0-54.0 [facility] Comment on above: Performed By: #### P OCGLUC #### [facility] [address] [place] [address] Dr. Lety Torres Hemoglobin (Bld) [Mass/Vol] 9.0 g/dL Critically low 14.0-18.0 [facility] Comment on above: Performed By: #### P OCGLUC #### [facility] [address] [place] [address] Dr. Lety Torres IG # 0.10 10e3/ul Critically high 0.00-0.03 [facility] Comment on above: Performed By: #### P OCGLUC #### [facility] [address] [place] [address] Dr. Lety Torres IG % 0.7 % Critically high 0.0-0.5 [facility] Comment on above: Performed By: #### P OCGLUC #### [facility] [address] [place] [address] Dr. Lety Torres LYMPH # 2.5 103/ul Normal 1.2-3.8 [facility] Comment on above: Performed By: #### P OCGLUC #### [facility] [address] [place] [address] Dr. Lety Torres Lymphocytes/100 WBC (Bld) 16.4 % Critically low 20.5-60.0 [facility] Comment on above: Performed By: #### P OCGLUC #### [facility] [address] [place] [address] Dr. Lety Torres MANUAL DIFF REQ NO Normal [facility] Comment on above: Performed By: #### P OCGLUC #### [facility] [address] [place] [address] Dr. Lety Torres MCH (RBC) [Entitic mass] 30.9 pg Normal 25.9-34.0 [facility] Comment on above: Performed By: #### P OCGLUC #### [facility] [address] [address] [address] Lety Torres MCHC (RBC) [Mass/Vol] 33.3 g/dL Normal 29.9-35.2 [facility] Comment on above: Performed By: #### P OCGLUC #### [facility] [address] [address] [address] Lety Torres MCV (RBC) [Entitic vol] 92.8 fL Normal 80.0-94.0 [facility] Comment on above: Performed By: #### P OCGLUC #### [facility] [address] [place] [address] Dr. Lety Torres MONO # 1.3 103/ul Critically high 0.3-0.8 [facility] Comment on above: Performed By: #### P OCGLUC #### [facility] [address] [place] [address] Dr. Lety Torres Monocytes/100 WBC (Bld) 8.3 % Normal 1.7-12.0 [facility] Comment on above: Performed By: #### P OCGLUC #### [facility] [address] [place] [address] Dr. Lety Torres NEUT # 11.3 103/ul Critically high 1.4-6.5 [facility] Comment on above: Performed By: #### P OCGLUC #### [facility] [address] [place] [address] Dr. Lety Torres Neutrophils/100 WBC (Bld) 74.0 % Normal 43.0-75.0 [facility] Comment on above: Performed By: #### P OCGLUC #### [facility] [address] [place] [address] Dr. Lety Torres Platelet mean volume (Bld) [Entitic vol] 9.6 fL Normal 9.5-13.5 [facility] Comment on above: Performed By: #### P OCGLUC #### [facility] [address] [address] [address] Lety Torres PLT 232 103/ul Normal 150-450 [facility] Comment on above: Performed By: #### P OCGLUC #### [facility] [address] [address] [address] Lety Torres RBC 2.91 106/ul Critically low 4.70-6.10 [facility] Comment on above: Performed By: #### P OCGLUC #### [facility] [address] [address] [address] Lety Torres WBC 15.2 103/ul Critically high 4.0-11.0 [facility] Comment on above: Performed By: #### P OCGLUC #### [facility] [address] [address] [address] Lety Torres POINT OF CARE GLUCOSEon 12-14 Glucose [Mass/Vol] 122 mg/dL Critically high 74-[address] [facility] Comment on above: Performed By: #### P OCGLUC #### [facility] [address] [place] [address] Dr. Lety Torres Glucose [Mass/Vol] 135 mg/dL Critically high 74-[address] [facility] Comment on above: Performed By: #### P OCGLUC #### [facility] [address] [place] [address] Dr. Lety Torres Glucose [Mass/Vol] 282 mg/dL Critically high 74-[address] [facility] Comment on above: Performed By: #### P OCGLUC #### [facility] [address] [place] [address] Dr. Lety Torres Glucose [Mass/Vol] 48 mg/dL Critically low 74-106 [facility] Comment on above: Result Comment: Will Repeat Test Performed By: #### P OCGLUC #### [facility] [address] [place] [address] Dr. Lety Torres Glucose [Mass/Vol] 85 mg/dL Normal 74-106 [facility] Comment on above: Performed By: #### P OCGLUC #### [facility] [address] [place] [address] Dr. Lety Torres Glucose [Mass/Vol] 242 mg/dL Critically high 74-106 [facility] Comment on above: Performed By: #### P OCGLUC #### [facility] [address] [place] [address] Dr. Lety Torres Glucose [Mass/Vol] 44 mg/dL Critically low 74-106 [facility] Comment on above: Result Comment: Prev iously Confirmed Performed By: #### P OCGLUC #### [facility] [address] [place] [address] Dr. Lety Torres PROF 14(COMP METB)on 022 Albumin [Mass/Vol] 2.4 g/dL Critically low 3.4-5.0 [facility] Comment on above: Performed By: #### C MP #### [facility] [address] [place] [address] Dr. Lety Torres Albumin/Globulin [Mass ratio] 0.7 {ratio} Normal [facility] Comment on above: Performed By: #### C MP #### [facility] [address] [place] [address] Dr. Lety Torres ALP [Catalytic activity/Vol] 62 U/L Normal 46-116 [facility] Comment on above: Performed By: #### C MP #### [facility] [address] [place] [address] Dr. Lety Torres ALT [Catalytic activity/Vol] 26 U/L Normal 16-63 [facility] Comment on above: Performed By: #### C MP #### [facility] [address] [place] [address] Dr. Lety Torres Anion gap [Moles/Vol] 11.5 mmol/L Normal [facility] Comment on above: Performed By: #### C MP #### [facility] [address] [place] [address] Dr. Lety Torres AST [Catalytic activity/Vol] 22 U/L Normal 15-37 [facility] Comment on above: Performed By: #### C MP #### [facility] [address] [place] [address] Dr. Lety Torres Bilirubin [Mass/Vol] 0.5 mg/dL Normal 0.2-1.0 [facility] Comment on above: Performed By: #### C MP #### [facility] [address] [address] [address] Lety Torres Calcium [Mass/Vol] 7.8 mg/dL Critically low 8.5-10.1 [facility] Comment on above: Performed By: #### C MP #### [facility] [address] [address] [address] Lety Torres Chloride [Moles/Vol] 107 mmol/L Normal 98-107 [facility] Comment on above: Performed By: #### C MP #### [facility] [address] [place] [address] Dr. Lety Torres CO2 [Moles/Vol] 23.3 mmol/L Normal 21.0-32.0 [facility] Comment on above: Performed By: #### C MP #### [facility] [address] [place] [address] Dr. Lety Torres Creatinine [Mass/Vol] 1.34 mg/dL Critically high 0.70-1.30 [facility] Comment on above: Performed By: #### C MP #### [facility] [address] [place] [address] Dr. Lety Torres EGFR-AF NICARAGUAN >60 Normal >=60 [facility] Comment on above: Performed By: #### C MP #### [facility] [address] [place] [address] Dr. Lety Torres EGFR-NON AF N[place]AR[place]UAN 51 mL/min/1.73m2 Critically low >=60 [facility] Comment on above: Performed By: #### C MP #### [facility] [address] [place] [address] Dr. Lety Torres Globulin (S) [Mass/Vol] 3.6 g/dL Normal [facility] Comment on above: Performed By: #### C MP #### [facility] [address] [place] [address] Dr. Lety Torres Glucose [Mass/Vol] 61 mg/dL Critically low 74-106 [facility] Comment on above: Performed By: #### C MP #### [facility] [address] [place] [address] Dr. Lety Torres Potassium [Moles/Vol] 3.8 mmol/L Normal 3.5-5.1 [facility] Comment on above: Performed By: #### C MP #### [facility] [address] [place] [address] Dr. Lety Torres Protein [Mass/Vol] 6.0 g/dL Critically low 6.4-8.2 [facility] Comment on above: Performed By: #### C MP #### [facility] [address] [place] [address] Dr. Lety Torres Sodium [Moles/Vol] 138 mmol/L Normal 136-145 [facility] Comment on above: Performed By: #### C MP #### [facility] [address] [place] [address] Dr. Lety Torres Urea nitrogen [Mass/Vol] 18.0 mg/dL Normal 7.0-18.0 [facility] Comment on above: Performed By: #### C MP #### [facility] [address] [place] [address] Dr. Lety Torres Urea nitrogen/Creatinine [Mass ratio] 13.4 mg/mg Normal [facility] Comment on above: Performed By: #### C MP #### [facility] [address] [place] [address] Dr. Lety Torres BLOOD CULTURE ID PANELon A. baumannii Not detected Normal NOT DETECTED [facility] Comment on above: Performed By: #### C MP #### [facility] [address] [place] [address] Dr. Lety Torres Performed By: #### C VDTB #### [facility] [address] [place] [address] Dr. Lety Torres Bacteriodes fragilis Not detected Normal NOT DETECTED [facility] Comment on above: Performed By: #### C MP #### [facility] [address] [place] [address] Dr. Lety Torres Performed By: #### C VDTBH #### [facility] [address] [address] [address] Lety Torres BCID CONTROLS PASSED [facility] Comment on above: Performed By: #### C MP #### [facility] [address] [address] [address] Lety Torres Performed By: #### C VDTBH #### [facility] [address] [address] [address] Lety Torres BCIDBTHD BLOOD CULTURE BOTTLE INFORMATION [facility] Comment on above: Performed By: #### C MP #### [facility] [address] [place] [address] Dr. Lety Torres Performed By: #### C VDTBH #### [facility] [address] [place] [address] Dr. Lety Torres BCIDHD1 ANTIMICROBIAL RESIST ANCE GENES [facility] Comment on above: Performed By: #### C MP #### [facility] [address] [address] [address] Lety Torres Performed By: #### C VDTBH #### [facility] [address] [place] [address] Dr. Lety Torres BCIDHD2 SEE BELOW [facility] Comment on above: Result Comment: Note : Antimicrobial resitance can occur via multiple mechanisms. A Not Detected result for the [employer] antomicrobial resistance gene assays does not indicate antimicrobial susceptibility. Subculturing is required for species identification and susceptibility testing of isolates. Performed By: #### C MP #### [facility] [address] [place] [address] Dr. Lety Torres Performed By: #### C VDTBH #### [facility] [address] [place] [address] Dr. Lety Torres BCIDHD3 Positive [facility] Comment on above: Performed By: #### C MP #### [facility] [address] [place] [address] Dr. Lety Torres Performed By: #### C VDTBH #### [facility] [address] [address] [address] Lety Torres BCIDHD4 Negative Normal [facility] Comment on above: Performed By: #### C MP #### [facility] [address] [address] [address] Lety Torres Performed By: #### C VDTBH #### [facility] [address] [address] [address] Lety Torres BCIDHD5 YEAST Normal [facility] Comment on above: Performed By: #### C MP #### [facility] [address] [place] [address] Dr. Lety Torres Performed By: #### C VDTBH #### [facility] [address] [place] [address] Dr. Lety Torres Bottle Set: Set 1 Normal [facility] Comment on above: Performed By: #### C MP #### [facility] [address] [place] [address] Dr. Lety Torres Performed By: #### C VDTBH #### [facility] [address] [place] [address] Dr. Lety Torres Bottle: Aerobic Normal [facility] Comment on above: Performed By: #### C MP #### [facility] [address] [place] [address] Dr. Lety Torres Bottle: Anaerobic Normal [facility] Comment on above: Performed By: #### C VDTBH #### [facility] [address] [place] [address] Dr. Lety Torres C. neoformans/gattii Not detected Normal NOT DETECTED [facility] Comment on above: Performed By: #### C MP #### [facility] [address] [place] [address] Dr. Lety Torres Performed By: #### C VDTBH #### [facility] [address] [place] [address] Dr. Lety Torres Kaylah albicans Not detected Normal NOT DETECTED [facility] Comment on above: Performed By: #### C MP #### [facility] [address] [place] [address] Dr. Lety Torres Performed By: #### C VDTBH #### [facility] [address] [place] [address] Dr. eLty Torres Kaylah auris Not detected Normal NOT DETECTED [facility] Comment on above: Performed By: #### C MP #### [facility] [address] [place] [address] Dr. Lety Torres Performed By: #### C VDTBH #### [facility] [address] [place] [address] Dr. Lety Torres Kaylah glabrata Not detected Normal NOT DETECTED [facility] Comment on above: Performed By: #### C MP #### [facility] [address] [place] [address] Dr. Lety Torres Performed By: #### C VDTBH #### [facility] [address] [place] [address] Dr. Lety Torres Kaylah Krusei Not detected Normal NOT DETECTED [facility] Comment on above: Performed By: #### C MP #### [facility] [address] [place] [address] Dr. Lety Torres Performed By: #### C VDTBH #### [facility] [address] [place] [address] Dr. Lety Torres Kaylah Parapsilosis Not detected Normal NOT DETECTED [facility] Comment on above: Performed By: #### C MP #### [facility] [address] [place] [address] Dr. Lety Torres Performed By: #### C VDTBH #### [facility] [address] [place] [address] Dr. Lety Torres Kaylah Tropicalis Not detected Normal NOT DETECTED [facility] Comment on above: Performed By: #### C MP #### [facility] [address] [place] [address] Dr. Lety Torres Performed By: #### C VDTBH #### [facility] [address] [place] [address] Dr. Lety Torres CTX-M Resistant Gene Not detected Normal NOT DETECTED [facility] Comment on above: Performed By: #### C MP #### [facility] [address] [place] [address] Dr. Lety Torres Performed By: #### C VDTBH #### [facility] [address] [place] [address] Dr. Lety Torres E. Cloacae complex Not detected Normal NOT DETECTED [facility] Comment on above: Performed By: #### C MP #### [facility] [address] [place] [address] Dr. Lety Torres Performed By: #### C VDTBH #### [facility] [address] [place] [address] Dr. Lety Torres E. faecalis Not detected Normal NOT DETECTED [facility] Comment on above: Performed By: #### C MP #### [facility] [address] [place] [address] Dr. Lety Torres Performed By: #### C VDTBH #### [facility] [address] [place] [address] Dr. Lety Torres E. faecium Not detected Normal NOT DETECTED [facility] Comment on above: Performed By: #### C MP #### [facility] [address] [place] [address] Dr. Lety Torres Performed By: #### C VDTBH #### [facility] [address] [place] [address] Dr. Lety Torres Enterobacteriaceae Detected Abnormal NOT DETECTED [facility] Comment on above: Performed By: #### C MP #### [facility] [address] [place] [address] Dr. Lety Torres Performed By: #### C VDTBH #### [facility] [address] [place] [address] Dr. Lety Torres Escherichia coli Not detected Normal NOT DETECTED [facility] Comment on above: Performed By: #### C MP #### [facility] [address] [place] [address] Dr. Lety Torres Performed By: #### C VDTBH #### [facility] [address] [place] [address] Dr. Lety Torres H. influenzae Not detected Normal NOT DETECTED [facility] Comment on above: Performed By: #### C MP #### [facility] [address] [place] [address] Dr. Lety Torres Performed By: #### C VDTBH #### [facility] [address] [place] [address] Dr. Lety Torres IMP Resistant Gene Not detected Normal NOT DETECTED [facility] Comment on above: Performed By: #### C MP #### [facility] [address] [place] [address] Dr. Lety Torres Performed By: #### C VDTBH #### [facility] [address] [place] [address] Dr. Lety Torres K. oxytoca Not detected Normal NOT DETECTED [facility] Comment on above: Performed By: #### C MP #### [facility] [address] [place] [address] Dr. Lety Torres Performed By: #### C VDTBH #### [facility] [address] [place] [address] Dr. Lety Torres K. pneumoniae Not detected Normal NOT DETECTED [facility] Comment on above: Performed By: #### C MP #### [facility] [address] [place] [address] Dr. Lety Torres Performed By: #### C VDTBH #### [facility] [address] [place] [address] Dr. Lety Torres Klebsiella aerogenes Not detected Normal NOT DETECTED [facility] Comment on above: Performed By: #### C MP #### [facility] [address] [place] [address] Dr. Lety Torres Performed By: #### C VDTBH #### [facility] [address] [place] [address] Dr. Lety Torres KPC Resistant Gene Not detected Normal NOT DETECTED [facility] Comment on above: Performed By: #### C MP #### [facility] [address] [place] [address] Dr. Lety Torres Performed By: #### C VDTBH #### [facility] [address] [place] [address] Dr. Lety Torres List. monocytogenes Not detected Normal NOT DETECTED [facility] Comment on above: Performed By: #### C MP #### [facility] [address] [place] [address] Dr. Lety Torres Performed By: #### C VDTBH #### [facility] [address] [place] [address] Dr. Lety Torres Mcr-1 Resistant Gene Not detected Normal NOT DETECTED [facility] Comment on above: Performed By: #### C MP #### [facility] [address] [place] [address] Dr. Lety Torres Performed By: #### C VDTBH #### [facility] [address] [place] [address] Dr. Lety Torres mecA/C Not detected Normal NOT DETECTED [facility] Comment on above: Performed By: #### C MP #### [facility] [address] [place] [address] Dr. Lety Torres Performed By: #### C VDTBH #### [facility] [address] [place] [address] Dr. Lety Torres mecA/C MREJ Not detected Normal NOT DETECTED [facility] Comment on above: Performed By: #### C MP #### [facility] [address] [place] [address] Dr. Lety Torres Performed By: #### C VDTBH #### [facility] [address] [place] [address] Dr. Lety Torres N. meningitidis Not detected Normal NOT DETECTED [facility] Comment on above: Performed By: #### C MP #### [facility] [address] [place] [address] Dr. Lety Torres Performed By: #### C VDTBH #### [facility] Laboratory [address] [place] [address] Dr. Lety Torres NDM Resistant Gene Not detected Normal NOT DETECTED [facility] Comment on above: Performed By: #### C MP #### [facility] [address] [place] [address] Dr. Lety Torres Performed By: #### C VDTBH #### [facility] [address] [place] [address] Dr. Lety Torres Oxa-48-like Not detected Normal NOT DETECTED [facility] Comment on above: Performed By: #### C MP #### [facility] [address] [place] [address] Dr. Lety Torres Performed By: #### C VDTBH #### [facility] [address] [place] [address] Dr. Lety Torres Proteus Detected Abnormal NOT DETECTED [facility] Comment on above: Performed By: #### C MP #### [facility] [address] [place] [address] Dr. Lety Torres Performed By: #### C VDTBH #### [facility] [address] [place] [address] Dr. Lety Torres Pseud. aeruginosa Not detected Normal NOT DETECTED [facility] Comment on above: Performed By: #### C MP #### [facility] [address] [place] [address] Dr. Lety Torres Performed By: #### C VDTBH #### [facility] [address] [place] [address] Dr. Lety Torres S. maltophilia Not detected Normal NOT DETECTED [facility] Comment on above: Performed By: #### C MP #### [facility] [address] [place] [address] Dr. Lety Torres Performed By: #### C VDTBH #### [facility] [address] [place] [address] Dr. Lety Torres Salmonella Not detected Normal NOT DETECTED [facility] Comment on above: Performed By: #### C MP #### [facility] [address] [place] [address] Dr. Lety Torres Performed By: #### C VDTBH #### [facility] [address] [place] [address] Dr. Lety Torres Seratia marcescens Not detected Normal NOT DETECTED [facility] Comment on above: Performed By: #### C MP #### [facility] [address] [place] [address] Dr. Lety Torres Performed By: #### C VDTBH #### [facility] [address] [place] [address] Dr. Lety Torres Site: left ac Normal [facility] Comment on above: Performed By: #### C MP #### [facility] [address] [place] [address] Dr. Lety Torres Performed By: #### C VDTBH #### [facility] [address] [place] [address] Dr. Lety Torres Staph. aureus Not detected Normal NOT DETECTED [facility] Comment on above: Performed By: #### C MP #### [facility] [address] [place] [address] Dr. Lety Torres Performed By: #### C VDTBH #### [facility] [address] [place] [address] Dr. Lety Torres Staph. epidermidis Not detected Normal NOT DETECTED [facility] Comment on above: Performed By: #### C MP #### [facility] [address] [place] [address] Dr. Lety Torres Performed By: #### C VDTBH #### [facility] [address] [place] [address] Dr. Lety Torres Staph. lugdunensis Not detected Normal NOT DETECTED [facility] Comment on above: Performed By: #### C MP #### [facility] [address] [place] [address] Dr. Lety Torres Performed By: #### C VDTBH #### [facility] [address] [place] [address] Dr. Lety Torres Staphylococcus Not detected Normal NOT DETECTED [facility] Comment on above: Performed By: #### C MP #### [facility] [address] [place] [address] Dr. Lety Torres Performed By: #### C VDTBH #### [facility] [address] [place] [address] Dr. Lety Torres Strep. agalactiae Not detected Normal NOT DETECTED [facility] Comment on above: Performed By: #### C MP #### [facility] [address] [place] [address] Dr. Lety Torres Performed By: #### C VDTBH #### [facility] [address] [place] [address] Dr. Lety Torres Strep. pneumoniae Not detected Normal NOT DETECTED [facility] Comment on above: Performed By: #### C MP #### [facility] [address] [place] [address] Dr. Lety Torres Performed By: #### C VDTBH #### [facility] [address] [place] [address] Dr. Lety Torres Strep. pyogenes Not detected Normal NOT DETECTED [facility] Comment on above: Performed By: #### C MP #### [facility] [address] [place] [address] Dr. Lety Torres Performed By: #### C VDTBH #### [facility] [address] [place] [address] Dr. Lety Torres Streptococcus Not detected Normal NOT DETECTED [facility] Comment on above: Performed By: #### C MP #### [facility] [address] [place] [address] Dr. Lety Torres Performed By: #### C VDTBH #### [facility] [address] [place] [address] Dr. Lety Torres Dede/B Resist. Gene Not detected Normal NOT DETECTED [facility] Comment on above: Performed By: #### C MP #### [facility] [address] [place] [address] Dr. Lety Torres Performed By: #### C VDTBH #### [facility] [address] [place] [address] Dr. Lety Torres VIM Resistant Gene Not detected Normal NOT DETECTED [facility] Comment on above: Performed By: #### C MP #### [facility] [address] [place] [address] Dr. Lety Torres Performed By: #### C VDTBH #### [facility] [address] [place] [address] Dr. Lety Torres CBC AUTO DIFFon 12-25-2021 BASO # 0.0 103/ul Normal 0.0-0.1 [facility] Comment on above: Performed By: #### P OCGLUC #### [facility] [address] [place] [address] Dr. Lety Torres Basophils/100 WBC (Bld) 0.3 % Normal 0.2-2.0 [facility] Comment on above: Performed By: #### P OCGLUC #### [facility] [address] [place] [address] Dr. Lety Torres EO # 0.0 103/ul Normal 0.0-0.7 [facility] Comment on above: Performed By: #### P OCGLUC #### [facility] [address] [place] [address] Dr. Lety Torres Eosinophils/100 WBC (Bld) 0.1 % Critically low 0.9-7.0 [facility] Comment on above: Performed By: #### P OCGLUC #### [facility] [address] [place] [address] Dr. Lety Torres Erythrocyte distribution width (RBC) [Ratio] 13.8 % Normal 11.0-15.0 [facility] Comment on above: Performed By: #### P OCGLUC #### [facility] [address] [place] [address] Dr. Lety Torres Hematocrit (Bld) [Volume fraction] 50.5 % Normal 42.0-54.0 [facility] Comment on above: Performed By: #### P OCGLUC #### [facility] [address] [place] [address] Dr. Lety Torres Hemoglobin (Bld) [Mass/Vol] 16.8 g/dL Normal 14.0-18.0 [facility] Comment on above: Performed By: #### P OCGLUC #### [facility] [address] [place] [address] Dr. Lety Torres IG # 0.04 10e3/ul Critically high 0.00-0.03 [facility] Comment on above: Performed By: #### P OCGLUC #### [facility] [address] [place] [address] Dr. Lety Torres IG % 0.6 % Critically high 0.0-0.5 [facility] Comment on above: Performed By: #### P OCGLUC #### [facility] [address] [place] [address] Dr. Lety Torres LYMPH # 0.4 103/ul Critically low 1.2-3.8 [facility] Comment on above: Performed By: #### P OCGLUC #### [facility] [address] [place] [address] Dr. Lety Torres Lymphocytes/100 WBC (Bld) 5.8 % Critically low 20.5-60.0 [facility] Comment on above: Performed By: #### P OCGLUC #### [facility] [address] [place] [address] Dr. Lety Torres MANUAL DIFF REQ NO Normal [facility] Comment on above: Performed By: #### P OCGLUC #### [facility] [address] [place] [address] Dr. Lety Torres MCH (RBC) [Entitic mass] 30.3 pg Normal 25.9-34.0 [facility] Comment on above: Performed By: #### P OCGLUC #### [facility] [address] [place] [address] Dr. Lety Torres MCHC (RBC) [Mass/Vol] 33.3 g/dL Normal 29.9-35.2 [facility] Comment on above: Performed By: #### P OCGLUC #### [facility] [address] [place] [address] Dr. Lety Torres MCV (RBC) [Entitic vol] 91.0 fL Normal 80.0-94.0 [facility] Comment on above: Performed By: #### P OCGLUC #### [facility] [address] [place] [address] Dr. Lety Torres MONO # 0.1 103/ul Critically low 0.3-0.8 [facility] Comment on above: Performed By: #### P OCGLUC #### [facility] [address] [place] [address] Dr. Lety Torres Monocytes/100 WBC (Bld) 1.0 % Critically low 1.7-12.0 [facility] Comment on above: Performed By: #### P OCGLUC #### [facility] [address] [place] [address] Dr. Lety Torres NEUT # 6.5 103/ul Normal 1.4-6.5 [facility] Comment on above: Performed By: #### P OCGLUC #### [facility] [address] [place] [address] Dr. Lety Torres Neutrophils/100 WBC (Bld) 92.2 % Critically high 43.0-75.0 [facility] Comment on above: Performed By: #### P OCGLUC #### [facility] [address] [place] [address] Dr. Lety Torres Platelet mean volume (Bld) [Entitic vol] 9.5 fL Normal 9.5-13.5 [facility] Comment on above: Performed By: #### P OCGLUC #### [facility] [address] [place] [address] Dr. Lety Torres PLT 186 103/ul Normal 150-450 [facility] Comment on above: Performed By: #### P OCGLUC #### [facility] [address] [place] [address] Dr. Lety Torres RBC 5.55 106/ul Normal 4.70-6.10 [facility] Comment on above: Performed By: #### P OCGLUC #### [facility] [address] [place] [address] Dr. Lety Torres WBC 7.0 103/ul Normal 4.0-11.0 [facility] Comment on above: Performed By: #### P OCGLUC #### [facility] [address] [place] [address] Dr. Lety Torres CULTURE BLOODon 12-25-2021 Microscopic examination of blood, culture Culture Observations: NO GROWTH AT 5 DAYS. Normal [facility] Comment on above: Performed By: #### C MP #### [facility] [address] [place] [address] Dr. Lety Torres CULTURE URINEon 12-25-2021 CULTURE URINE Culture Observations : No growth Normal [facility] Comment on above: Performed By: #### C MP #### [facility] [address] [place] [address] Dr. Lety Torres Covid-19 PCR (CVDTB)on 12-14 SARS-CoV-2 (COVID-19) RNA ISABELLA+probe Ql (Unsp spec) Not detected Normal NOT DETECTED [facility] Comment on above: Result Comment: When diagnostic testing is negative, the possibility of a false negative should be considered in the context of a patient's recent exposures and the presence of clinical signs and symptoms consistent with SARS-CoV-2. This test is not yet approved or cleared by the [place] FDA. When there are no FDA-approved or cleared tests available, and other criteria are met, FDA can make tests available under an emergency access mechanism called an Emergency Use Authorization (EUA). The EUA for this test is supported by the [place] of Health and Human Service's declaration that circumstances exist to justify the emergency use of in vitro diagnostics for the detection and/or diagnosis of the virus that causes COVID-19. This EUA will remain in effect for the duration of the COVID-19 declaration justifying emergency of IVDs, unless it is terminated or revoked by the FDA (after which the test may no longer be used). Performed By: #### C VDTBH #### [facility] [address] [place] [address] Dr. Lety Torres ER URINE PROFILEon 2 Bilirubin Ql (U) Negative Normal NEGATIVE [facility] Comment on above: Performed By: #### C MP #### [facility] [address] [place], [place] [id number] Dr. Lety Torres Clarity (U) SL CLOUDY Abnormal CLEAR [facility] Comment on above: Performed By: #### C MP #### [facility] [address] [place] [address] Dr. Lety Torres Color (U) LT. YELLOW Normal YELLOW [facility] Comment on above: Performed By: #### C MP #### [facility] [address] [place] [address] Dr. Lety SIERRA A micrscopic examina tion will be performed if indicated. Normal [facility] Comment on above: Performed By: #### C MP #### [facility] [address] [place] [address] Dr. Lety Torres Glucose Ql (U) Negative Normal NEGATIVE [facility] Comment on above: Performed By: #### C MP #### [facility] [address] [place] [address] Dr. Lety Torres Hemoglobin Ql (U) SMALL Abnormal NEGATIVE [facility] Comment on above: Performed By: #### C MP #### [facility] [address] [place] [address] Dr. Lety Torres Ketones Ql (U) Negative Normal NEGATIVE [facility] Comment on above: Performed By: #### C MP #### [facility] [address] [place] [address] Dr. Lety Torres LEUKOCYTES SMALL Abnormal NEGATIVE [facility] Comment on above: Performed By: #### C MP #### [facility] [address] [place] [address] Dr. Lety Torres Nitrite Ql (U) Positive Abnormal NEGATIVE [facility] Comment on above: Performed By: #### C MP #### [facility] [address] [place] [address] Dr. Lety Torres pH (U) 6.0 [pH] Normal 5-9 [facility] Comment on above: Performed By: #### C MP #### [facility] [address] [place] [address] Dr. Lety Torres SPEC GRAVITY 1.020 Normal 1.005-<=1. 025 [facility] Comment on above: Performed By: #### C MP #### [facility] [address] [place] [address] Dr. Lety Torres UA PROTEIN TRACE Normal NEGATIVE/ TRACE [facility] Comment on above: Performed By: #### C MP #### [facility] [address] [address] [address] Lety Torres UR MICRO IND INDICATED Normal [facility] Comment on above: Performed By: #### C MP #### [facility] [address] [place] [address] Dr. Lety Torres Urobilinogen Qn (U) 0.2 {Curt'U}/dL Normal 0.2 - 1. 0 [facility] Comment on above: Performed By: #### C MP #### [facility] [address] [place] [address] Dr. Lety Torres LACTATE/LACTIC ACIDon 2021 Lactate [Moles/Vol] 1.8 mmol/L Normal 0.4-1.9 [facility] Comment on above: Performed By: #### L ACT #### [facility] [address] [place] [address] Dr. Lety Torres Lactate [Moles/Vol] 2.5 mmol/L Critically high 0.4-1.9 [facility] Comment on above: Performed By: #### C MP #### [facility] [address] [place] [address] Dr. Lety Torres POINT OF CARE GLUCOSEon 12-14 Glucose [Mass/Vol] 83 mg/dL Normal 74-106 [facility] Comment on above: Performed By: #### P OCGLUC #### [facility] [address] [place] [address] Dr. Lety Torres Glucose [Mass/Vol] 45 mg/dL Critically low 74-106 [facility] Comment on above: Result Comment: Resu lt Not Confirmed Performed By: #### P OCGLUC #### [facility] [address] [place] [address] Dr. Lety Torres Glucose [Mass/Vol] 44 mg/dL Critically low 74-106 [facility] Comment on above: Result Comment: Will Repeat Test Performed By: #### P OCGLUC #### [facility] [address] [place] [address] Dr. Lety Torres Glucose [Mass/Vol] 81 mg/dL Normal 74-106 [facility] Comment on above: Performed By: #### C MP #### [facility] [address] [address] [address] Lety Torres Glucose [Mass/Vol] 146 mg/dL Critically high 74-[address] [facility] Comment on above: Performed By: #### P OCGLUC #### [facility] [address] [place] [address] Dr. Lety Torres Glucose [Mass/Vol] 213 mg/dL Critically high 74-[address] [facility] Comment on above: Performed By: #### P OCGLUC #### [facility] [address] [place] [address] Dr. Lety Torres PROF 14(COMP METB)on 022 Albumin [Mass/Vol] 3.8 g/dL Normal 3.4-5.0 [facility] Comment on above: Performed By: #### P OCGLUC #### [facility] [address] [place] [address] Dr. Lety Torres Albumin/Globulin [Mass ratio] 0.9 {ratio} Normal [facility] Comment on above: Performed By: #### P OCGLUC #### [facility] [address] [place] [address] Dr. Lety Torres ALP [Catalytic activity/Vol] 96 U/L Normal 46-116 [facility] Comment on above: Performed By: #### P OCGLUC #### [facility] [address] [place] [address] Dr. Lety Torres ALT [Catalytic activity/Vol] 22 U/L Normal 16-63 [facility] Comment on above: Performed By: #### P OCGLUC #### [facility] [address] [place] [address] Dr. Lety Torres Anion gap [Moles/Vol] 16.7 mmol/L Normal [facility] Comment on above: Performed By: #### P OCGLUC #### [facility] [address] [place] [address] Dr. Lety Torres AST [Catalytic activity/Vol] 16 U/L Normal 15-37 [facility] Comment on above: Performed By: #### P OCGLUC #### [facility] [address] [address] [address] Lety Torres Bilirubin [Mass/Vol] 1.3 mg/dL Critically high 0.2-1.0 [facility] Comment on above: Performed By: #### P OCGLUC #### [facility] [address] [address] [address] Lety Torres Calcium [Mass/Vol] 9.3 mg/dL Normal 8.5-10.1 [facility] Comment on above: Performed By: #### P OCGLUC #### [facility] [address] [place] [address] Dr. Ltey Torres Chloride [Moles/Vol] 102 mmol/L Normal 98-107 [facility] Comment on above: Performed By: #### P OCGLUC #### [facility] [address] [place] [address] Dr. Lety Torres CO2 [Moles/Vol] 21.8 mmol/L Normal 21.0-32.0 [facility] Comment on above: Performed By: #### P OCGLUC #### [facility] [address] [place] [address] Dr. Lety Torres Creatinine [Mass/Vol] 1.52 mg/dL Critically high 0.70-1.30 [facility] Comment on above: Performed By: #### P OCGLUC #### [facility] [address] [address] [address] Lety Torres EGFR-AF NICARAGUAN 53 mL/min/1.73m2 Critically low >=60 [facility] Comment on above: Performed By: #### P OCGLUC #### [facility] [address] [place] [address] Dr. Lety Torres EGFR-NON AF NICARAGUAN 44 mL/min/1.73m2 Critically low >=60 [facility] Comment on above: Performed By: #### P OCGLUC #### [facility] [address] [place] [address] Dr. Lety Torres Globulin (S) [Mass/Vol] 4.2 g/dL Normal [facility] Comment on above: Performed By: #### P OCGLUC #### [facility] [address] [address] [address] Lety Torres Glucose [Mass/Vol] 208 mg/dL Critically high 74-106 [facility] Comment on above: Performed By: #### P OCGLUC #### [facility] [address] [address] [address] Lety Torres Potassium [Moles/Vol] 4.5 mmol/L Normal 3.5-5.1 [facility] Comment on above: Performed By: #### P OCGLUC #### [facility] [address] [place] [address] Dr. Lety Torres Protein [Mass/Vol] 8.0 g/dL Normal 6.4-8.2 [facility] Comment on above: Performed By: #### P OCGLUC #### [facility] [address] [place] [address] Dr. Lety Torres Sodium [Moles/Vol] 136 mmol/L Normal 136-145 [facility] Comment on above: Performed By: #### P OCGLUC #### [facility] [address] [place] [address] Dr. Lety Torres Urea nitrogen [Mass/Vol] 21.0 mg/dL Critically high 7.0-18.0 [facility] Comment on above: Performed By: #### P OCGLUC #### [facility] [address] [address] [address] Lety Torres Urea nitrogen/Creatinine [Mass ratio] 13.8 mg/mg Normal [facility] Comment on above: Performed By: #### P OCGLUC #### [facility] [address] [place] [address] Dr. Lety Torres URINE MICROSCOPIC ONLYon BACTERIA TRACE Abnormal NONE SEEN [facility] Comment on above: Performed By: #### C MP #### [facility] [address] [place] [address] Dr. Lety Torres Bacteria identified Cx Nom (U) INDICATED Normal [facility] Comment on above: Performed By: #### C MP #### [facility] [address] [place] [address] Dr. Lety Torres CAST NONE SEEN Normal NONE SEEN [facility] Comment on above: Performed By: #### C MP #### [facility] [address] [place] [address] Dr. Lety Torres Crystals LM Nom (Urine sed) NONE SEEN Normal NONE SEEN [facility] Comment on above: Performed By: #### C MP #### [facility] [address] [place] [address] Dr. Lety Torres Epithelial cells LM Ql (Urine sed) RARE Normal NONE SEEN /RARE [facility] Comment on above: Performed By: #### C MP #### [facility] [address] [place] [address] Dr. Lety Torres MUCOUS NONE SEEN Normal NONE SEEN [facility] Comment on above: Performed By: #### C MP #### [facility] [address] [place] [address] Dr. Lety Torres RBC NONE SEEN Abnormal 0-2 [facility] Comment on above: Performed By: #### C MP #### [facility] [address] [place] [address] Dr. Lety Torres WBC 5-10 Abnormal NONE SEEN [facility] Comment on above: Performed By: #### C MP #### [facility] [address] [place] [address] Dr. Lety Torres YEAST PRESENT Abnormal NONE SEEN [facility] Comment on above: Performed By: #### C MP #### [facility] [address] [place] [address] Dr. Lety Torres XR CHEST 1 Von 12-25-2021 XR CHEST 1 V XR CHEST 1 V 12/25/2021 1:23 AM EDT Indication: COUGH Technique: Portable AP radiograph of the chest was obtained. Comparison: May 12, 2021 Findings: The lungs are adequately inflated. No acute rib fractures, pneumothorax or mediastinal shift. No consolidation, edema, or effusion. Heart is normal in size and contour. Sternotomy wires intact. Impression: No acute findings. Electronically authenticated by: GREGORY ELIZABETH Date: 2021-12-25 02:15 Normal [facility] PROF CHEM 8 (BAS METB)on Anion gap [Moles/Vol] 16.5 mmol/L Normal [facility] Comment on above: Performed By: #### B MP #### [facility] [address] [address] [address] Lety Torres Calcium [Mass/Vol] 8.9 mg/dL Normal 8.5-10.1 [facility] Comment on above: Performed By: #### B MP #### [facility] [address] [address] [address] Lety Torres Chloride [Moles/Vol] 108 mmol/L Critically high 98-107 [facility] Comment on above: Performed By: #### B MP #### [facility] [address] [address] [address] Lety Torres CO2 [Moles/Vol] 21.2 mmol/L Normal 21.0-32.0 [facility] Comment on above: Performed By: #### B MP #### [facility] [address] [address] [address] Lety Torres Creatinine [Mass/Vol] 1.32 mg/dL Critically high 0.70-1.30 [facility] Comment on above: Performed By: #### B MP #### [facility] [address] [address] [address] Lety Torres EGFR-AF NICARAGUAN >60 Normal >=60 [facility] Comment on above: Performed By: #### B MP #### [facility] [address] [address] [address] Lety Torres EGFR-NON AF NICARAGUAN 52 mL/min/1.73m2 Critically low >=60 [facility] Comment on above: Performed By: #### B MP #### [facility] [address] [address] [address] Lety Torres Glucose [Mass/Vol] 260 mg/dL Critically high 74-106 T [facility] Comment on above: Performed By: #### B MP #### [facility] [address] [address] [address] Lety Torres Potassium [Moles/Vol] 4.7 mmol/L Normal 3.5-5.1 [facility] Comment on above: Performed By: #### B MP #### [facility] [address] [address] [address] Lety Torres Sodium [Moles/Vol] 141 mmol/L Normal 136-145 [facility] Comment on above: Performed By: #### B MP #### [facility] [address] [address] [address] Lety Torres Urea nitrogen [Mass/Vol] 23.0 mg/dL Critically high 7.0-18.0 [facility] Comment on above: Performed By: #### B MP #### [facility] [address] [address] [address] Lety Torres Urea nitrogen/Creatinine [Mass ratio] 17.4 mg/mg Normal [facility] Comment on above: Performed By: #### B MP #### [facility] [address] [address] [address] Lety Torres CTA HEADon 11-02-[address] [facility] Department of Radiology [address] [place] [id number] Patient Name: PATRICK RUTHERFORD : 1940 Sex: M Age: Race: White Pt. Location: [facility] Patient Status: O Ordered Date: 09/11/2021 11:40:00 AM Completed Date: 11/02/2021 03:40 PM Requesting Provider: TRIPP KENNY Attending Provider: TRIPP KENNY Report Copy To: SHREYAS ADAME Signs & Symptoms: I65.23 Occlusion and stenosis of bilateral carotid arteries I10 History: Zakiya DM? on metformin? kidney dis? Will have labs done at [facility] Comments: Exam: CTA HEAD CTA HEAD 11/02/2021 3:40 PM CLINICAL INDICATIONS: I65.23 Occlusion and stenosis of bilateral carotid arteries I10 TECHNOLOGIST COMMENTS: Occlusion and stenosis of bilateral carotid arteries QUESTION FOR THE RADIOLOGIST: PROTOCOL: Axial CT angiography images were obtained with IV contrast. CONTRAST: Contrast: OMNIPAQUE 350 (LOCM), 100 milliliter, Intravenous TECHNIQUE: CT angiography of the head were obtained with intravenous contrast. Multiplanar, MIP, and volume rendered 3-D reformats were generated on a separate workstation and reviewed to further define anatomy and possible pathology. All CT scans at this facility use dose modulation, iterative reconstruction, and/or weight based dosing when appropriate to reduce radiation dose to as low as reasonably achievable. COMPARISON: Brain MRI 05/13/2021 FINDINGS: There are moderate intimal calcifications at the cavernous segments of both internal carotid arteries with no hemodynamically significant stenosis. Both anterior cerebral arteries are symmetric and grossly unremarkable. Both middle cerebral arteries are symmetric and grossly patent. With there is no major branch occlusion. Basilar artery is of adequate course and caliber. Right posterior cerebral artery is patent. There is short segment of severe stenosis at the mid P1 segment of the left posterior cerebral artery of undetermined age. IMPRESSION: There is short segment of severe stenosis at the mid P1 segment of left posterior cerebral artery of undetermined age. The remaining cerebral vessels are grossly unremarkable is no major branch occlusion or hemodynamically significant stenosis. Electronically signed: Ernesto Villasenor. Transcribed by: [email or web address], User Resident: ERNESTO VILLASENOR Electronically Signed by: ERNESTO VILLASENOR @ 11/02/2021 04:25 PM I personally read this/these film(s) with this resident Normal [facility] CTA NECKon 11-02-[address] [facility] Department of Radiology [address] [place] [address] Patient Name: PATRICK RUTHERFORD : 1940 Sex: M Age: Race: White Pt. Location: 392 Patient Status: Ordered Date: 09/11/2021 11:40:00 AM Completed Date: 11/02/2021 03:40 PM Requesting Provider: TRIPP KENNY Attending Provider: Report Copy To: SHREYAS ADAME Signs & Symptoms: I65.23 Occlusion and stenosis of bilateral carotid arteries I10 pre op History: Zakiya DM? on metformin? kidney dis? DM - will have labs done at [facility] Comments: Exam: CTA NECK CTA NECK 11/02/2021 3:40 PM CLINICAL INDICATIONS: I65.23 Occlusion and stenosis of bilateral carotid arteries I10 pre op TECHNOLOGIST COMMENTS: Occlusion and stenosis of bilateral carotid arteries QUESTION FOR THE RADIOLOGIST: PROTOCOL: Axial CT angiography images were obtained with IV contrast. CONTRAST: TECHNIQUE: Multi-detector CT angiography axial slices of the neck were obtained during intravenous administration of IV contrast material. Sagittal, coronal, and 3-D reconstructions were performed and viewed on a separate workstation. The [place] Symptomatic Carotid Endarterectomy Trial (NASCET) method for calculating the degree of stenosis was utilized for stenosis measurements. COMPARISON: None. FINDINGS: There are heavy intimal calcifications throughout the aortic arch and proximal descending thoracic aorta. There are aortic valve prosthesis surgical changes. Right innominate artery origin is calcified but remains grossly patent Right subclavian artery is widely patent. Right common carotid artery is widely patent with the few calcified intimal plaques. There are heavy circumferential intimal calcification at the origin of the right internal carotid artery with near complete occlusion. The remaining cervical segment is of uniform small caliber but remains grossly patent. Right external carotid arteries widely patent. Left common carotid artery is patent with coarse intimal calcifications. Left internal carotid artery stent is grossly patent. Left cervical segment is grossly unremarkable Left external carotid artery is patent. Left subclavian artery is patent with heavy intimal calcification of no hemodynamic significance. Left vertebral artery is widely patent and of adequate course and caliber. IMPRESSION: There are heavy intimal calcification with near complete occlusion at the origin of the right internal carotid artery. Left internal carotid artery stent is patent with no hemodynamically significant stenosis. There is short segment of the severe stenosis at the mid P1 segment of the left posterior cerebral artery. All CT scans at this facility use dose modulation, iterative reconstruction, and/or weight based dosing when appropriate to reduce radiation dose to as low as reasonably achievable Electronically signed: Ernesto Villasenor. Transcribed by: [email or web address], User Resident: ERNESTO VILLASENOR Electronically Signed by: ERNESTO VILLASENOR @ 11/02/2021 04:32 PM I personally read this/these film(s) with this resident Normal [facility] CREATININEon 10-15-2021 Creatinine [Mass/Vol] 1.25 mg/dL Normal 0.70-1.30 [facility] Comment on above: Performed By: #### P OCGLUC #### [facility] [address] [address] [address] Lety Torres EGFR-AF NICARAGUAN >60 Normal >=60 [facility] Comment on above: Performed By: #### P OCGLUC #### [facility] [address] [place], [place] [address] Dr. Lety Torres EGFR-NON AF NICARAGUAN 55 mL/min/1.73m2 Critically low >=60 [facility] Comment on above: Performed By: #### P OCGLUC #### [facility] [address] [place], [place] [address] Dr. Lety Torres Vital Signs Date Time Vital Sign Value Performing Clinician Facility 01-12-2023 14:15-0400 Body height 167.64 cm Imad Asaad Other [facility] Other 01-12-2023 14:15-0400 Body mass index (BMI) [Ratio] 26.55 kg/m2 Imad Asaad Other [facility] Other 01-12-2023 14:15-0400 Body weight 74.62 kg Imad Asaad Other [facility] Other 01-12-2023 14:15-0400 Diastolic blood pressure 52 mm[Hg] Imad Asaad Other [facility] Other 01-12-2023 14:15-0400 Systolic blood pressure 105 mm[Hg] Imad Asaad Other [facility] Other 09-22-2022 14:24-0400 Blood Pressure Location Tevin NILL [facility] [place] 09-22-2022 14:24-0400 Diastolic blood pressure 70 mm[Hg] Tevin NILL [facility] [place] 09-22-2022 14:24-0400 Heart rate 72 /min Tevin NILL [facility] [place] 09-22-2022 14:24-0400 Respiratory rate 16 /min Tevin NILL [facility] [place] 09-22-2022 14:24-0400 Systolic blood pressure 156 mm[Hg] Tevin NILL [facility] [place] 06-09-2022 15:10-0500 Blood Pressure Location SAMANTHA CASTRO [facility] 06-09-2022 15:10-0500 Diastolic blood pressure 74 mm[Hg] SAMANTHA CASTRO [facility] 06-09-2022 15:10-0500 Heart rate 68 /min SAMANTHA CASTRO [facility] 06-09-2022 15:10-0500 Respiratory rate 16 /min SAMANTHA CASTRO [facility] 06-09-2022 15:10-0500 Systolic blood pressure 138 mm[Hg] SAMANTHA CASTRO [facility] 12-22-2021 15:10-0400 Blood Pressure Location Ted CEJA [facility] [place] 12-22-2021 15:10-0400 Diastolic blood pressure 88 mm[Hg] Ted CEJA [facility] 12-22-2021 15:10-0400 Heart rate 86 /min Ted CEJA [facility] [place] 12-22-2021 15:10-0400 Systolic blood pressure 179 mm[Hg] Ted CEJA [facility] [place] 11-27-2021 10:25-0400 Blood Pressure Location Ted CEJA [facility] 11-27-2021 10:25-0400 Diastolic blood pressure 67 mm[Hg] Ted CEJA [facility] 11-27-2021 10:25-0400 Heart rate 71 /min Ted CEJA [facility] 11-27-2021 10:25-0400 Respiratory rate 16 /min Ted CEJA [facility] 11-27-2021 10:25-0400 Systolic blood pressure 139 mm[Hg] Ted CEJA [facility] En[facility]ters Encounter Date Encounter Type Care Provider Facility Start: 06-20-2023 ambulatory [place] [place] Start: 01-31-2023 End: 01-31-2023 ambulatory Imad Asaad Other [facility] Other Start: 01-31-2023 Telephone encounter Imad Asaad [facility] Start: 01-18-2023 End: 01-18-2023 ambulatory Imad Asaad Facility:[facility] Start: 01-18-2023 End: 01-18-2023 ambulatory MD Shreyas Adame Work Phone: [facility] Work Phone: Start: 01-18-2023 End: 01-18-2023 Patient encounter procedure MD Shreyas Adame Work Phone: [facility] [place] Work Phone: Start: 01-16-2023 End: 01-16-2023 ambulatory MD Shreyas Adame Work Phone: [facility] Work Phone: Start: 01-16-2023 End: 01-16-2023 Patient encounter procedure MD Shreyas Adame Work Phone: [facility] [place] Work Phone: Start: 01-12-2023 End: 01-12-2023 Patient encounter procedure MD Shreyas Adame Work Phone: [facility] [place] Work Phone: Start: 01-12-2023 End: 01-12-2023 ambulatory MD Shreyas Adame Work Phone: [facility] Work Phone: Start: 01-12-2023 Office outpatient ne w 45 minutes Imad Asaad [facility] Start: 12-13-2022 End: 12-14-2022 ambulatory Ted CEJA Facility: [place] Start: 10-06-2022 End: 10-07-2022 ambulatory Tevin PURDY Facility: [facility] Start: 09-29-2022 End: 09-30-[address] TEVIN PURDY . Facility: Start: 09-22-2022 End: 09-23-2022 ambulatory Tevin PURDY Facility: [facility] Start: 09-22-2022 End: 09-22-2022 Patient encounter procedure Tevin PURDY [facility] Start: 09-06-2022 ambulatory Tevin PURDY Facility : [place] Start: 06-09-2022 End: 06-10-2022 ambulatory SAMANTHA CASTRO Facility:[facility] [place] Start: 06-09-2022 End: 06-09-2022 Patient encounter procedure SAMANTHA CASTRO [facility] [place] Start: 06-02-2022 ambulatory SAMANTHA CASTRO Facili ty:[facility] [place] Start: 03-29-2022 End: 03-30-2022 ambulatory [facility] Start: 03-08-2022 ambulatory [facility] Start: 03-01-2022 ambulatory Ted CEJA Facili ty:[facility] Start: 02-23-2022 Evaluation and management of inpatient [facility] Start: 02-23-2022 Evaluation and management of inpatient [facility] Start: 02-22-2022 End: 02-24-2022 Evaluation and management of inpatient [facility] Start: 02-19-2022 End: 02-19-2022 ambulatory [facility] Start: 02-19-2022 End: 02-19-2022 Encounter for other preprocedural examination [facility] Start: 02-01-2022 Encounter for other preprocedural examination [facility] Start: 01-13-[address] SHREYAS ADAME . Facili ty:[facility] Start: 12-25-2021 End: 12-28-[address] SHREYAS ADAME . Facility: Start: 12-22-2021 End: 12-22-2021 Patient encounter procedure Ted ECJA [facility] Start: 11-27-2021 End: 11-27-2021 Patient encounter procedure Ted CEJA [facility] Start: 11-25-2021 ambulatory SHREYAS ADAME Facility:[facility] Start: 11-23-2021 End: 11-24-[address] FRANCIE ARREGUIN Facility: Start: 11-02-2021 End: 11-03-2021 ambulatory SHREYAS ADAME Facility:[facility] Start: 10-15-2021 End: 10-16-[address] SHREYAS ADAME . Facility: Start: 10-06-2021 End: 10-06-2021 Patient encounter procedure SAMANTHA CASTRO [facility] Start: 07-07-2021 End: 07-08-2021 ambulatory SHREYAS ADAME Facility:[facility] Procedures Date Procedure Procedure Detail Performing Clinician Start: 12-22-2021 Cystoscopy Ted LANDIS Bypass of stomach Ted LANDIS Carotid endarterectomy Jeramy PURDY Coronary artery bypa ss graft SAMANTHA CASTRO Cystoscopy SAMANTHA CASTRO Comment on above: 2007 Endarterectomy SAMANTHA Tesfaye Placement of stent SAMANTHA CASTRO Replacement of aortic valve SAMANTHA CASTRO Plan of Treatment Date Care Activity Detail Author Start: 01-18-2023 Stool culture Stool Culture [facility] Start: 01-16-2023 Ova and Parasite Concentrate Exam Ova and Parasite Concentrate Exam [facility] Bacteria identified in Stool by Culture [facility] Calprotectin [Mass/m ass] in Stool [facility] Elastase.pancreatic [Mass/mass] in Stool [facility] Ova and parasites identified in Unspecified specimen by Light microscopy [facility] Immunizations Immunization Date Immunization Notes Care Provider Elier stahl 05-12-2021 influenza virus vaccine, unspecified formulation SAMANTHA CASTRO [facility] 05-12-2021 SARS-CoV-2 (COVID-19 ) mRNA-1273 vaccine SAMANTHA CASTRO [facility] 11-11-2020 SARS-CoV-2 (COVID-19 ) mRNA BNT-162b2 vax SAMANTHA CASTRO [facility] 10-20-2020 SARS-CoV-2 (COVID-19 ) mRNA BNT-162e7 vax SAMANTHA CASTRO [facility] 02-25-2020 influenza virus vaccine, unspecified formulation SAMANTHA MICHAEL [facility] 03-10-2017 influenza virus vaccine, unspecified formulation SAMANTHA MICHAEL [facility] 02-19-2016 influenza virus vaccine, unspecified formulation SAMANTHA MICHAEL [facility] 02-19-2009 influenza, whole SAMANTHA BLAIR RRY [facility] Payers Date Payer Category Payer Self-pay 2016 Unknown [id number] 1961 Medicare [id number] 1959 Self-pay [id number] 1959 Unknown [id number] 1940 Unknown [id number] [id number]7 1940 Unknown [id number] 2.16.840.1.862124.3.579.2.647 1940 Unknown [id number] 2.16.840.1.836301.3.579.2.647 1940 Unknown [id number] 2.16.840.1.631421.3.579.2.593 1940 Unknown [id number] 2.16.840.1.011124.3.579.2.593 1940 Unknown [id number] 2.16.840.1.044811.3.579.2.593 1940 Unknown [id number] 2.16.840.1.293873.3.579.2.593 1938 Unknown [id number] 2.16.840.1.485726.3.579.2.593 1940 Unknown [id number] 2.16.840.1.652088.3.579.2.727 1938 Unknown [id number] 2.16.840.1.462762.3.579.2.727 1940 Unknown [id number] 2.16.840.1.850729.3.579.2.727 1940 Unknown [id number] 2.16.840.1.181872.3.579.2.72 1940 Unknown [id number] 2.16.840.1.614918.3.579.2.72 1940 Unknown [id number] 2.16.840.1.582136.3.579.2. 1940 Unknown [id number] 2.16.840.1.098961.3.579.2. 1940 Unknown [id number] 2.16.840.1.474859.3.579.2. 1940 Unknown [id number] 2.16.840.1.720362.3.579.2.727 Private Health Insurance [employer] [facility] M [id number] Unknown [id number] 2.16.840.1.519867.3.579.2.531 Unknown [id number] 2.16840.1.617607.3.579.2.531 Unknown [id number] 2.16840.1.797417.3.579.2.531 Social History Date Type Detail Facility Tobacco smoking status [facility] Sex Assigned At Male [facility] Start: 11-27-2021 End: 09-22-2022 Tobacco smoking status Ex-smoker (finding) [facility] Tobacco smoking status Never [facility] Start: 1940 Sex Assigned At Male F [facility] Functional Status Date Assessment Result Facility 09-22-2022 Functional Status N/A [facility] [place] 06-09-2022 Functional Status N/A [facility] 12-22-2021 Functional Status N/A [facility] [place] 11-27-2021 Functional Status N/A [facility] Clinical Notes 09-08-2021 to 01-12-2023 Note Date & Type Note Facility 01-12-2023 Evaluation note Encounter Date Diagnosis Assessment Notes Dec, Fecal incontinence (ICD-10 - R15.9) Dec, Constipation, unspecified constipation type (ICD-10 - K59.00) [facility] Other 05-10-2023 NoteChief Complaint consultation for loose stools and incontinence HPI Staff 82 year old male presents on consultation from Dr. Adame for loose stools and fecal incontinence. Reports one year history of multiple loose bowel movements daily, most of which result in incontinence.Denies abdominal or rectal pain. No rectal bleeding. Denies nausea, vomiting or appetite change. Reports approximately 20 pound weight loss over the past year. Never had colonoscopy in the past. History of Present Illness 82 yo male with h/o CAD, s/p CABG x 4 and AVR 2 years ago with tissue valve; htn, regurgitation, hyperlipidemia, DMII with neuropathy, htn, hypothyroidism, PVD, pulmonary htn, referred for loose stools, with frequent incontinence; negative stool studies 1 year ago; patient with evidence of iron deficiency anemia, hb 9.6 12/2021; denies blood in stools, no melena, no abd pain; symptoms began after episode of urosepsis 1 year ago that required hospitalization; no abd operations or previous endoscopy; patient reports 20 lb wt loss over last year despite normal appetite and food intake; no dysphagia or early satiety; on baby asa and Plavix daily, no NSAIDs; no SBE prophylaxis; no fmhx of GI malig khadijah or IBD; no tobacco use. Review of Systems PHQ Score Initial Depression Screen Score: 0 ROS - Provider Constitutional: no fever, no sweats, no weight loss. Eyes: yes glasses, no blurred vision, no visual loss. ENMT: no dentures, no hoarseness, no swallowing difficulties, no hearing loss, no ear infection(s),no nose bleeds. Cardiovascular: normal blood pressure, no chest pain, regular heartbeat, no heart murmur. Respiratory: no shortness of breath, no cough, no asthma, no wheezing. Gastrointestinal: no nausea, no vomiting, no diarrhea, no constipation, no blood in stool, no change in bowel habits, no abdominal pain, no hepatitis. Genitourinary: no kidney stones, no urine infection, no dysuria. Musculoskeletal: yes pain, yes weakness. Skin: no changing moles, no rash, no skin lumps. Neurologic: no seizures, no epilepsy, no headache. Psychiatric: no emotional or psychiatric problem. Heme/Lymph: no bleeding problems, no anemia, no blood clots, no transfusions. Allergy/Immunologic: no swollen lymph nodes/glands, no IV drug abuse. Other: Additional ROS info: Except as noted in the above Review of Systems and in the History of Present Illness, all other systems have been reviewed and are negative or noncontributory. Physical Exam Vitals & Measurements HR: 72(Peripheral) RR: 16 BP: 156/70 HT: 66 in HT: 167.64 cm WT: 71.2 kg WT: 156.64 lb BMI: 25.34 HEENT: normal conjunctiva, sclera clear, no scleral icterus, EOM intact, PERRLA, oral mucosa moist without lesions. Neck: trachea midline, no mass, symmetric, no thyromegaly or nodules, no adenopathy Respiratory: lungs CTA, respirations non labored. Cardiovascular: regular rate and rhythm, no murmur, no pedal edema or varicosities. Gastrointestinal: soft, non distended, no tenderness, no masses, no palpable hernias, diastasis recti no, no hepatosplenomegaly; normal bs Lymphatic: no cervical adenopathy, no supraclavicular adenopathy Musculoskeletal: abnormal gait, digits and nails without infection, nodes, cyanosis, clubbing. Skin: no rashes, no lesions, no ulcers, no subcutaneous nodules, induration. Psychiatric/Neuro: oriented to time, place, person, judgement normal, affect appropriate for age, insight intact, no focal deficits. Tests: labs reviewed, review of old records completed, Discussed surgical options, risks, and possible complications with patient. Assessment/Plan 1. Change in bowel habits (R19.4: Change in bowel habit) plan EGD and colonoscopy under anesthesia for further evaluation; informed consent obtained. 2. 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 Frequent loose stools (R19.7: Diarrhea, unspecified) see # 1 4. Fecal incontinence (R15.9: Full incontinence of feces) see # 1 5. Weight loss (R63.4: Abnormal weight loss) see # 1 Follow-up No qualifying data available Problem List/Past Medical History Ongoing Anemia due to gastrointestinal blood loss Anticoagulated Anxiety Aortic insufficiency Atherosclerotic heart disease BMI 25.0-25.9,adult BPH with urinary obstruction CAD (coronary artery disease) Change in bowel habits Chronic prostatitis Diabetes Diabetic peripheral neuropathy Diarrhea Dysuria Elevated PSA Enlarged prostate with urinary obstruction Fecal incontinence Former smoker Frequent loose stools History of myocardial infarction Hx-TIA (transient ischemic attack) Hypertension Hypertriglyceridemia Hypothyroidism IBS (irritable bowel syndrome) Incomplete bladder emptying Microscopic hematuria Mitral regurgitation Peripheral vascular disease Pulmonary HTN Right carotid artery stenosis Severe aortic stenosis Spinal stenosis o (more content not included)...[facility] Comment on above:Result Comment: Electronically Signed By: GURWINDER LUU, Tevin Leiva\Date and Time Signed: 09/22/22 15:44 [id number] Hospital Discharge instructions Patient Education 06/09/2022 15:29:32 Prostatitis, Zfzu-[id number] Prostatitis Prostatitis is swelling of the prostate gland. The prostate helps to make semen. It is below a man's bladder, in front of the rectum. There are different types of prostatitis. Follow these instructions at home: Take eerp-syb-ejkwwur and prescription medicines only as told by your doctor. If you were prescribed an antibiotic medicine, take it as told by your doctor. Do not stop taking the antibiotic even if you start to feel better. If your doctor prescribed exercises, do them as directed. Take sitz baths as told by your doctor. To take a sitz bath, sit in warm water that is deep enough to cover your hips and butt. Keep all follow-up visits as told by your doctor. This is important. Contact a doctor if: Your symptoms get worse. You have a fever. Get help right away if: You have chills. You feel sick to your stomach (nauseous). You throw up (vomit). You feel light-headed. You feel like you might pass out (faint). You cannot pee (urinate). You have blood or clumps of blood (blood clots) in your pee (urine). This information is not intended to replace advice given to you by your health care provider. Make sure you discuss any questions you have with your health care provider. Document Released: 10/31/2012 Document Revised: 04/14/2018 Document Reviewed: 01/20/2017 [employer] Patient Education 2020 [employer]. 06/09/2022 15:29:30 Benign Prostatic Hyperplasia Benign Prostatic Hyperplasia Benign prostatic hyperplasia (BPH) is an enlarged prostate gland that is caused by the normal agingprocess and not by cancer. The prostate is a walnut-sized gland that is involved in the production of semen. It is located in front of the rectum and below the bladder. The bladder stores urine and the urethra is the tube that carries the urine out of the body. The prostate may get bigger as a man gets older. An enlarged prostate can press on the urethra. This can make it harder to pass urine. The build-up of urine in the bladder can cause infection. Back pressure and infection may progress to bladder damage and kidney (renal) failure. What are the causes? This condition is part of a normal aging process. However, not all men develop problems from this condition. If the prostate enlarges away from the urethra, urine flow will not be blocked. If it enlarges toward the urethra and compresses it, there will be problems passing urine. What increases the risk? This condition is more likely to develop in men over the age of 50 years. What are the signs or symptoms? Symptoms of this condition include: Getting up often during the night to urinate. Needing to urinate frequently during the day. Difficulty starting urine flow. Decrease in size and strength of your urine stream. Leaking (dribbling) after urinating. Inability to pass urine. This needs immediate treatment. Inability to completely empty your bladder. Pain when you pass urine. This is more common if there is also an infection. Urinary tract infection (UTI). How is this diagnosed? This condition is diagnosed based on your medical history, a physical exam, and your symptoms. Tests will also be done, such as: A post-void bladder scan. This measures any amount of urine that may remain in your bladder after you finish urinating. A digital rectal exam. In a rectal exam, your health care provider checks your prostate by putting a lubricated, gloved finger into your rectum to feel the back of your prostate gland. This exam detects the size of your gland and any abnormal lumps or growths. An exam of your urine (urinalysis). A prostate specific antigen (PSA) screening. This is a blood test used to screen for prostate cancer. An ultrasound. This test uses sound waves to electronically produce a picture of your prostate gland. Your health care provider may refer you to a specialist in kidney and prostate diseases (urologist). How is this treated? Once symptoms begin, your health care provider will monitor your condition (active surveillance or watchful waiting). Treatment for this condition will depend on the severity of your condition. Treatment may include: Observation and yearly exams. This may be the only treatment needed if your condition and symptoms are mild. Medicines to relieve your symptoms, including: ?Medicines to shrink the prostate. ?Medicines to relax the muscle of the prostate. Surgery in severe cases. Surgery may include: ?Prostatectomy. In this procedure, the prostate tissue is removed completely through an open incision or with a laparoscope or robotics. ?Transurethral resection of the prostate (TURP). In this procedure, a tool is inserted through the opening at the tip of the penis (urethra). It is used to cut away tissue of the inner core of the prostate. The pieces are removed through the same opening of the penis. This removes the blockage. ?Transurethral incision (TUIP). In this procedure, small cuts are made in the prostate. This lessens the prostate's pressure on the urethra. ?Transurethral microwave thermotherapy (TUMT). This procedure uses microwaves to create heat. The heat destroys and removes a small amount of prostate tissue. ?Transurethral needle ablation (TUNA). This procedure uses radio frequencies to destroy and remove a small amount of prostate tissue. ?Interstitial laser coagulation (ILC). This procedure uses a laser to destroy and remove a small amount of prostate tissue. ?Transurethral electrovaporization (TUVP). This procedure uses electrodes to destroy and remove a small amount of prostate tissue. ?Prostatic urethral lift. This procedure inserts an implant to push the lobes of the prostate away from the urethra. Follow these instructions at home: Take [id number] and prescription medicines only as told by your health care provider. Monitor your symptoms for any changes. Contact your health care provider with any changes. Avoid drinking large amounts of liquid before going to bed or out in public. Avoid or reduce how much caffeine or alcohol you drink. Give yourself time when you urinate. Keep all follow-up visits as told by your health care provider. This is important. Contact a health care provider if: You have unexplained back pain. Your symptoms do not get better with treatment. You develop side effects from the medicine you are taking. Your urine becomes very dark or has a bad smell. Your lower abdomen becomes distended and you have trouble passing your urine. Get help right away if: You have a fever or chills. You suddenly cannot urinate. You feel lightheaded, or very dizzy, or you faint. There are large amounts of blood or clots in the urine. Your urinary problems become hard to manage. You develop moderate to severe low back or flank pain. The flank is the side of your body between the ribs and the hip. These symptoms may represent a serious problem that is an emergency. Do not wait to see if the symptoms will go away. Get medical help right away. Call your local emergency services (911 in the [place] Do not drive yourself to the hospital. Summary Benign prostatic hyperplasia (BPH) is an enlarged prostate that is caused by the normal aging process and not by cancer. An enlarged prostate can press on the urethra. This can make it hard to pass urine. This condition is part of a normal aging process and is more likely to develop in men over the age of 50 years. Get help right away if you suddenly cannot urinate. This information is not intended to replace advice given to you by your health care provider. Make sure you discuss any questions you have with your health care provider. Document Released: 05/02/2006 Document Revised: 03/27/2019 Document Reviewed: 06/06/2017 Elsevier Patient Education 2020 [employer]. Follow Up Care 06/03/2022 09:55:30 With:MICHAEL MOROCHO, SAMANTHA Diego, URL Address: [address] [place] [address] When:Within 6 Month(s) [facility] [place] 11-14-2022 NoteSubjective Patient ID: Patrick Rutherford is a 81 y.o. male who presents for Post-op (TCAR follow up). Patient is an 81 year old male with history of severe asymptomatic right carotid stenosis s/p TCAR on 02/22/22. He is doing well. Incision is well healed. Patient denies any history of TIA/CVA since last visit. Denies any unilateral weakness, facial droop, dysarthria, confusion or amaurosis fugax. Patient is on DAPT, statin for RFM. Nonsmoker. ROS also positive for leg swelling, reports occasional edema of the ankles only, denies any associated pain. He had carotid duplex today which showed normal ICA stent flow. Right side unchanged Review of Systems Cardiovascular: Positive for leg swelling. All other systems reviewed and are negative. Objective Visit Vitals BP 160/64 (BP Location: Right arm, Patient Position: Sitting) Pulse 72 Temp 36.2 ???C (97.1 ???F) (Temporal) Physical Exam Constitutional: General: He is not in acute distress. Appearance: Normal appearance. He is not ill-appearing. HENT: Head: Normocephalic and atraumatic. Eyes: General: No scleral icterus. Pupils: Pupils are equal, round, and reactive to light. Cardiovascular: Rate and Rhythm: Normal rate and regular rhythm. Pulses: Carotid pulses are on the right side with bruit and on the left side with bruit. Femoral pulses are 2+ on the right side and 2+ on the left side. Heart sounds: Murmur heard. Comments: Left incision is healed, minor scabbing noted Pulmonary: Effort: Pulmonary effort is normal. Breath sounds: Normal breath sounds. Musculoskeletal: Cervical back: Neck supple. Skin: General: Skin is warm and dry. Neurological: General: No focal deficit present. Mental Status: He is alert and oriented to person, place, and time. Psychiatric: Mood and Affect: Mood normal. Behavior: Behavior normal. Thought Content: Thought content normal. Judgment: Judgment normal. Assessment/Plan Diagnoses and all orders for this visit: Bilateral carotid artery stenosis - S/p TCAR 02/[address] Diamond. He remains asymptomatic - Continue DAPT, statin for RFM - Follow up in 6 months with carotid imagining prior - Discussed warning s/sx of CVA and when to present to ED. EDELMIRA Teague No diagnosis found. No orders of the defined types were placed in this encounter. No results found for this or any previous visit (from the past 36 hour(s)). No follow-ups on file.[facility]10-24-2022 Note Subjective Patient ID: Patrick Rutherford is a 81 y.o. male who presents for Post-op (Post op TCAR on 02/22/22). Patient is an 81 year old male with history of severe asymptomatic right carotid stenosis s/p TCAR on 02/22/22. He is doing well. Denies any hoarseness to voice, difficulty swallowing, swelling to incision. Denies any erythema, calor, induration to incision. Review of Systems Gastrointestinal: Positive for diarrhea. Hematological: Bruises/bleeds easily. All other systems reviewed and are negative. Objective Visit Vitals BP 140/50 (BP Location: Left arm, Patient Position: Sitting) Pulse 88 Temp 36.9 ???C (98.4 ???F) (Temporal) Physical Exam Constitutional: General: He is not in acute distress. Appearance: Normal appearance. He is not ill-appearing. HENT: Head: Normocephalic and atraumatic. Eyes: General: No scleral icterus. Pupils: Pupils are equal, round, and reactive to light. Cardiovascular: Rate and Rhythm: Normal rate and regular rhythm. Pulses: Carotid pulses are on the right side with bruit and on the left side with bruit. Femoral pulses are 2+ on the right side and 2+ on the left side. Heart sounds: Murmur heard. Comments: Left incision is well approximated with steri strips intact. No s/sx of infection or hematoma. Pulmonary: Effort: Pulmonary effort is normal. Breath sounds: Normal breath sounds. Musculoskeletal: Cervical back: Neck supple. Skin: General: Skin is warm and dry. Neurological: General: No focal deficit present. Mental Status: He is alert and oriented to person, place, and time. Psychiatric: Mood and Affect: Mood normal. Behavior: Behavior normal. Thought Content: Thought content normal. Judgment: Judgment normal. Assessment/Plan Diagnoses and all orders for this visit: Carotid stenosis, bilateral - Carotid duplex bilateral; Future - S/p TCAR 02/[address] Diamond - Continue DAPT, statin for RFM - Allow steri strips to fall off on their own - Follow up in 2-3 weeks with carotid duplex prior No diagnosis found. No orders of the defined types were placed in this encounter. No results found for this or any previous visit (from the past 36 hour(s)). No follow-ups on file.[facility]10-12-2022 NotePatient will be [facility] 6pm tonight. Spoke with the patient and his granddaughter about the discharge time. [facility]10-12-2022 [facility] has accepted.[facility]10-12-2022 [facility] accepting. Sent therapy notes. Patient has received the covid vaccine but not the boosters.[facility]10-12-2022 Note02/24/22 1421 Time Calculation Start Time 1145 Stop Time 1205 Time Calculation (min) 20 min PT Evaluation Time Entry PT Evaluation (Moderate) Time Entry 20 Discharge recommendations: SNF [facility] Krish is a 81 y.o. male Right carotid stenosis presented today to undergo TCA 02/22. 02/24/22 1145 PT Last Visit PT Received On 02/24/22 General Subjective Shorthand Reporter notes BLE tremor and truncal tremor w/ standing, and mild to moderate gait ataxia. Patient states this has occurred for about a year. Has not discussed w/ MD. States occurs at home as well as during hospital stay. Shorthand Reporter suggests pt see neurologist d/t Parkinsonian symptoms. Precautions Medical Precautions telemetry;fall risk;chair alarm Pain Assessment Pain Score (reports tenderness to surgery site R neck w/ light touch) Cognition Overall Cognitive Status WFL Arousal/Alertness Appropriate responses to stimuli Orientation Level Oriented X4 Following Commands Follows all commands and directions without difficulty Safety Judgment Decreased awareness of need for assistance;Decreased awareness of need for safety Cognition Comments Patient uses cane. States caregivers have told him he needs to use RW, but does not like to. Home Living Type of Home House Lives With Spouse;Son Home Adaptive Equipment Cane;Walker rolling Home Layout One level Prior Function Level of Crisp Independent with ADLs and functional transfers (ambulates w/ cane) Homemaking Assistance Needs assistance (Patient's son has caregivers for physical care; staff also manages load builder including cooking. prepares light meals w/o cooking) Sensation Sensation Comments Patient reports baseline numbness B feet. Coordination Movements are Fluid and Coordinated No Coordination and Movement Description Pt's LEs w/ ballistic knee ext/flexion while sitting in chair, abnormal trunk movements in standing, gait ataxia Postural Control Posture Assessment forward head, mild kyphosis Trunk Control trunk tremors/ataxia Static Sitting Balance Static Sitting-Balance Support No upper extremity supported Static Sitting-Level of Assistance Close supervision (seated on toilet) Static Standing Balance Static Standing-Balance Support Right upper extremity supported (cane) Static Standing-Level of Assistance Minimum assistance (CGA when using RW) Static Standing-Comment/Number of Minutes need for assist to gain stable standing balance after transfer Transfer 1 Transfer From 1 Chair with arms Transfer Type 1 To Transfer to 1 Stand (cane) Transfer Device 1 straight cane Transfer Level of Assistance 1 Minimum assistance Trials/Comments 1 CGA, w/ min A to gain intial balance Transfers 2 Transfer From 2 Stand Transfer Type 2 To and from Transfer to 2 Toilet Transfer Device 2 grab bar/toilet Transfer Level of Assistance 2 Contact guard Trials/Comments 2 Verbal cues to use grab bar Ambulation 1 Device 1 Single point cane Assistance 1 Minimum assistance Quality of Gait 1 narrow GAYATHRI, mild to moderate ataxia w/ occasional scissoring, short shuffling steps Comments/Distance (ft) 1 15' Ambulation 2 Device 2 Rolling walker Assistance 2 Contact guard Quality of Gait 2 improved step quality w/ continued narrow GAYATHRI and short step lentgth Comments/Distance (ft) 2 15' RLE Assessment RLE Assessment WFL LLE Assessment LLE Assessment WFL PT Assessment Impairments Decreased endurance;Impaired balance;Decreased mobility;Decreased coordination;Decreased safety awareness PT Assessment 81 y/o male demonstrating decreased functional independence and safety d/t gait abnormalities and Parkinsonian symptoms Plan Level of assist 1 assist Treatment/Interventions Functional transfer training;Endurance training;Equipment eval/education;Bed mobility;Gait training;Balance training PT Plan Skilled PT PT Frequency (5x/wk and PRN) PT Discharge Recommendations care home facility placement PT - OK to Discharge Yes [facility]re [facility] M[facility] NoteOccupational Therapy Occupational Therapy Evaluation Patient Name: Patrick Rutherford Today's Date: 02/24/2022 Time In: 1145 Time Out: 1205 OT Discharge Recommendations: care home facility placement General Visit Information: General Subjective: Pt pleasant and cooperative. Pt NEWTOK and requires repitition during communication. Pt typically wears hearings aids; hearing aids lost at pt house. Family/Caregiver Present: No Objective: RN ok'd pt for therapy this date, pt agreeable. Pt seated in recliner upon arrival, retired to seated in recliner upon exit. Chair alarm on. RN aware, call light within reach, all needs addressed. Activity Orders: Bedrest with exceptions, up with assist Precautions Precautions Medical Precautions: fall risk, telemetry, IV, chair alarm Patient Active Problem List Diagnosis Preoperative examination, unspecified Stenosis of right carotid artery Carotid stenosis, asymptomatic, right Present Illness: 81 year-old male admitted 02/22/22 with carotid stenosis. R TCAR completed 02/22/22. Past Medical History: Diagnosis Date Carotid artery stenosis Cataract Coronary artery disease COVID-19 01/14/2022 Diabetes mellitus (CMS/HCC) Fractures RIGHT ARM GERD (gastroesophageal reflux disease) History of transfusion Hyperlipidemia Hypertension Hypothyroidism Kidney disease TIA (transient ischemic attack) Past Surgical History: Procedure Laterality Date AORTIC VALVE REPLACEMENT CARDIAC CATHETERIZATION 07/01/2016 CAROTID ENDARTERECTOMY CAROTID STENT CORONARY ARTERY BYPASS GRAFT 08/20/2016 QUADRUPLE BYPASS CORONARY STENT PLACEMENT PATIENT THINKS JUST [address] HEAD ANGIO W AND WO IV CONTRAST 11/02/2021 CT HEAD ANGIO W AND WO IV CONTRAST ALVARENGA CONVERSION CT HEART CORONARY ANGIOGRAM 10/13/2016 CT HEART CORONARY ANGIOGRAM ALVARENGA CONVERSION CT NECK ANGIO W AND WO IV CONTRAST 11/02/2021 CT NECK ANGIO W AND WO IV CONTRAST ALVARENGA CONVERSION Pain Pain Assessment Pain Assessment: No/denies pain Home Living Home Living Type of Home: House Lives With: Spouse, Son (Son is handicapped. Media Specialist/SENIOR SYSTEMS ANALYST provides assistance to son and completes household tasks and IADLs.) Home Adaptive Equipment: Cane, Walker rolling Home Layout: One level Home Access: Ramped entrance Bathroom Shower/Tub: Walk-in shower Bathroom Toilet: Handicapped height Bathroom Equipment: None Prior Level of Function Prior Function ADL Assistance: Independent Homemaking Assistance: Needs assistance (Media Specialist/SENIOR SYSTEMS ANALYST provides assistance with household tasks: cleaning, cooking, taking care of son.) Vocational: Retired Prior Function Comments: Pt drives and typically ambulates with cane Dynamic Sitting Balance Dynamic Sitting Balance Dynamic Sitting-Balance Support: No upper extremity supported Dynamic Sitting Balance-Level of Assistance: Distant supervision Dynamic Sitting-Comments: 5 min Static Standing Balance Static Standing Balance Static Standing-Balance Support: Right upper extremity supported (Using cane) Static Standing-Level of Assistance: Contact guard Static Standing-Comment/Number of Minutes: 1 min Dynamic Standing Balance Dynamic Standing Balance Dynamic Standing-Balance Support: Right upper extremity supported, Left upper extremity supported (Pt used cane from chair>toilet. Pt used RW from toilet>chair.) Dynamic Standing Balance-Level of Assistance: Contact guard Bed Mobility Bed Mobility Bed Mobility: No Transfers Transfers Transfer: Yes Transfer 1 Transfer From 1: Chair with arms Transfer Type 1: To and from Transfer to 1: Toilet Technique 1: Sit to stand, Stand to sit Transfer Device 1: rolling walker (standard cane) Transfer Level of Assistance 1: Contact guard Cognition Cognition Overall Cognitive Status: Within Functional Limits Arousal/Alertness: Appropriate responses to stimuli Orientation Level: Oriented X4 Following Commands: Follows one step commands without difficulty Safety Judgment: Decreased awareness of need for assistance, Decreased awareness of need for safety Deficits: Decreased awareness of deficits Communication: Intact Cognition Comments: Cues for safety awareness throughout Prior IADLs IADL History Homemaking Responsibilities: No Current License: Yes Mode of Transportation: Car Occupation: Retired General Assessments ADL Toileting Assistance with Device: Contact guard assist Toileting Deficit: Supervison/safety, Steadying (for toilet transfer) Activity Tolerance Ambulation comments: Pt walked from chair>toilet using a cane and from toilet>chair using RW walker. Pt required CGA - min assist to decrease unsteadiness. Pt became unsteady with x1 LOB with tactile assist to correct when standing from chair. Cues for decreased speed during mobility. Endurance: Stage III Vision - Basic Assessment Current Vision: Wears glasses all the time H (more content not included)...[facility]10-12-2022 NoteMet with the patient. He lives with his and son in a one story home with no steps to enter. He has a cane. He is active with [email or web address]. Called his family member Dina with his approval. She would like for him to try for [facility], [facility] and [facility] in [place] at discharge. Sent referrals to all listed. Will follow for therapy recommendations.[facility]10-12-2022 NoteDischarge Summary: Vascular Surgery Admission Admitted 02/22/2022 for TCAR vs right CEA in the setting of right carotid stenosis. Discharge Diagnosis Carotid stenosis, asymptomatic, right Discharge Disposition Rehabilitation facility Discharge Medications Your medication list ASK your doctor about these medications Instructions Last Dose Given Next Dose Due aspirin 81 mg EC tablet atorvastatin 40 mg tablet Commonly known as: Lipitor carvedilol 25 mg tablet Commonly known as: Coreg clopidogrel 75 mg tablet Commonly known as: Plavix glimepiride 2 mg tablet Commonly known as: Amaryl hydrOXYzine HCL 25 mg tablet Commonly known as: Atarax levothyroxine 75 mcg tablet Commonly known as: Synthroid, Levoxyl lisinopril 5 mg tablet metFORMIN 500 mg tablet Commonly known as: Glucophage multivitamin tablet pantoprazole 40 mg EC tablet Commonly known as: ProtoNix SITagliptin 100 mg tablet Commonly known as: Januvia tamsulosin 0.4 mg 24 hr capsule Commonly known as: Flomax Activity Work with PT/OT for balance problems. Diet Patient currently has no discharge diet orders Allergies Patient has no known allergies. Hospital Course Patient was admitted on 02/22/2022 for TCAR vs. Right CEA in the setting of right carotid stenosis. Patient underwent this procedure on 02/22 without complication. Patient tolerated the procedure well with no acute post-surgical complications. Patient was given heparin for post-operative DVT prophylaxis. Post-operative pain was managed with hydromorphone 0.2 mg injection Q4H PRN and eventually was transitioned to acetaminophen 650 mg oral Q6H HOLLI. Patient was admitted to SICU for post-operative observation for approximately 12 hours until being transferred to the step-down unit from which he will be discharged. 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 Pertinent Physical Exam At Time of Discharge General: Awake, alert, acutely oriented HENT: Normocephalic without obvious signs of trauma, PERRLA, extraocular eye movements in tact, appropriately healing surgical wound on right side of the neck Cardio: RRR normal S1 and S2 without murmurs, gallops, or rubs Respiratory: good air intake bilaterally, lungs CTAB, normal WOB Abdomen: soft, nontender, nondistended Extremities: Normal ROM, pulses 4+ throughout Neuro: No focal deficits Psych: Cooperative and friendly Lab Results Labs Reviewed POCT GLUCOSE METER UNSOLICITED RESULTS - Abnormal Result Value Glucose POC 239 (*) POCT GLUCOSE METER UNSOLICITED RESULTS - Abnormal Glucose POC 149 (*) POCT GLUCOSE METER UNSOLICITED RESULTS - Abnormal Glucose POC 129 (*) POCT GLUCOSE METER UNSOLICITED RESULTS - Abnormal Glucose POC 132 (*) CBC - Abnormal Auto WBC 10.55 RBC 3.30 (*) Hemoglobin 10.4 (*) Hematocrit 30.0 (*) MCV 90.9 MCH 31.5 MCHC 34.7 RDW 14.3 Platelets 306 BASIC METABOLIC PANEL - Abnormal Sodium 138 Potassium 4.3 Chloride 109 (*) CO2 22 BUN 14 Creatinine 0.88 Glucose 91 Calcium 9.1 Anion Gap 7 eGFR 79.4 BUN/Creatinine Ratio 15.91 MAGNESIUM - Abnormal Magnesium 1.4 (*) POCT GLUCOSE METER UNSOLICITED RESULTS - Abnormal Glucose POC 108 (*) POCT GLUCOSE METER UNSOLICITED RESULTS - Abnormal Glucose POC 190 (*) CBC - Abnormal Auto WBC 9.28 RBC 2.96 (*) Hemoglobin 9.0 (*) Hematocrit 27.5 (*) MCV 92.9 MCH 30.4 MCHC 32.7 RDW 14.0 Platelets 282 BASIC METABOLIC PANEL - Abnormal Sodium 138 Potassium 3.9 Chloride 108 (*) CO2 24 BUN 20 Creatinine 1.18 Glucose 56 (*) Calcium 8.8 Anion Gap 6 eGFR 56.7 (*) BUN/Creatinine Ratio 16.95 POCT GLUCOSE METER UNSOLICITED RESULTS - Abnormal Glucose POC 113 (*) POCT ACTIVATED CLOTTING TIME UNSOLICITED RESULTS - Abnormal Activated Clotting Time POC 212 (*) POCT ACTIVATED CLOTTING TIME UNSOLICITED RESULTS - Abnormal Activated Clotting Time POC 237 (*) PROTIME-INR - Normal Protime 13.9 INR 1.08 PHOSPHORUS - Normal Phosphorus 4.5 TROPONIN I - Normal Troponin I 0.02 POCT GLUCOSE METER UNSOLICITED RESULTS - Normal Glucose POC 99 MAGNESIUM - Normal Magnesium 1.9 PHOSPHORUS - Normal Phosphorus 4.7 POCT ACTIVATED CLOTTING TIME UNSOLICITED RESULTS - Normal Activated Clotting Time POC 122 CBC BASIC METABOLIC PANEL MAGNESIUM PHOSPHORUS POCT GLUCOSE METER POCT GLUCOSE METER POCT GLUCOSE METER POCT GLUCOSE METER POCT GLUCOSE METER POCT GLUCOSE METER POCT GLUCOSE METER Issues Requiring Follow-Up Right carotid stenosis post TCAR Outpatient Follow-Up Future Appointments Date Time Provider Department Center 03/08/2022 2:30 PM EDELMIRA Teague [facility] MA [facility] 03/17/2022 10:00 AM Nichelle Mathew NP [facility] Test Results Pending At Discharge None Completed by ALLEN Beverly (more content not included)...[facility] Subjective No acute events overnight. The patient is POD 1 from TCAR. Denies any acute complaints. He has been eating well. Has not ambulated yet. Objective Vitals: Vitals: 02/23/22 1725 BP: 145/53 Pulse: 78 Resp: 19 Temp: SpO2: 98% I/O last 3 completed shifts: In: 1553.2 (22.3 mL/kg) [I.V.:1445 (20.7 mL/kg); IV Piggyback:108.2] Out: 1175 (16.9 mL/kg) [Urine:1150 (0.5 mL/kg/hr); Blood:25] Weight: 69.7 kg I/O this shift: In: 1434 [P.O.:480; I.V.:954] Out: 475 [Urine:475] Physical Exam General Appearance: Awake, Alert & Oriented x3, No Acute Distress Neck: Trachea Midline, Dressing intact to right neck. No erythema or swelling. Pulmonary: Unlabored breathing on RA. Cardiac: Regular rate Abdomen: soft, non tender, non distended Extremity: No edema Bilateral Upper and lower Extremities Skin: warm and dry without rash Eyes: no scleral icterus Labs: Results from last 7 days Lab Units 02/23/22 0650 02/19/22 1523 WBC AUTO 10*3/uL 10.55 10.62* HEMOGLOBIN g/dL 10.4* 11.4* HEMATOCRIT % 30.0* 34.4* PLATELETS AUTO 10*3/uL 306 349 Results from last 7 days Lab Units 02/23/22 0650 02/19/22 1523 SODIUM mmol/L 138 137 POTASSIUM mmol/L 4.3 4.7 CO2 mmol/L 22 22 BUN mg/dL 14 25 CREATININE mg/dL 0.88 1.16 Results from last 7 days Lab Units 02/23/22 0650 02/19/22 1523 INR 1.08 1.00 Medications: acetaminophen, 650 mg, oral, q6h HOLLI amLODIPine, 10 mg, oral, Daily aspirin, 325 mg, oral, Once Followed by aspirin, 81 mg, oral, Daily with breakfast atorvastatin, 40 mg, oral, Daily carvedilol, 25 mg, oral, BID with meals clopidogrel, 75 mg, oral, Daily docusate sodium, 100 mg, oral, BID glimepiride, 4 mg, oral, Daily with breakfast heparin (porcine), 5,000 Units, subcutaneous, q8h HOLLI insulin aspart, 0-20 Units, subcutaneous, With meals & nightly levothyroxine, 75 mcg, oral, Daily before breakfast lisinopril, 5 mg, oral, BID pantoprazole, 40 mg, oral, q AM polyethylene glycol, 17 g, oral, Daily SITagliptin, 100 mg, oral, Daily tamsulosin, 0.4 mg, oral, Daily Oxygen Therapy, Imaging: XR chest 1 view Narrative: Single view chest History: Difficulty breathing, shortness of breath Comparison: 08/23/2016 Findings: Single portable view of the chest. Stable cardiomediastinal silhouette. There is atherosclerotic thoracic aorta. No focal consolidation large effusion or pneumothorax. Impression: No evidence of acute cardiopulmonary process. Electronically signed: Tevin Prieto. ECG 12 lead Normal sinus rhythm Left bundle branch block Abnormal ECG When compared with ECG of 21-AUG-2016 07:32, No significant change was found Confirmed by MD KALLIE, EHAB ([id number]) on 02/23/2022 1:28:41 PM Vascular US carotid artery duplex right Narrative: Procedure: The carotid arteries, including common carotid, internal and external carotid artery was evaulated on the right This was done using real-time imaging with velocity measurement, carotid Doppler, and spectral ananlysis. The vertebral was evaluated using color ultrasound and velocity measurement. Impression: Notes: Indication: Post Op TCAR - Bedside examination Right: Post OP TCAR. Internal carotid artery 325/105 cm/sec. 5.2 ICA/CCA ratio. Antegrade vertebral artery flow. Assessment/Plan Patrick Rutherford is a 81 y.o. male whom is POD #1 from TCAR. Continue cardiac diet Home medications restarted Patient feels he is unsteady on his feet and requests PT/OT consult- order placed DC art line and love PRN pain and nausea medications Incentive spirometry Ambulate/OOB DVT ppx: subcu hep Ashley Gomez MD General Surgery Resident, PGY-2 I can be reached via [employer] 6a-6pUnTrinity [facility]10-11-2022 NotePt taken to room per transport, WARREN Koch receiving pt updated on event prior to sending pt to roomUnTrinity Health [facility]10-11-2022 NoteEkg completed, vascular notified of left bundle branch block on test, ok to sent pt to room 5140 at this time, no s/sx distress noted with pt.[facility]10-11-2022 NotePt c/o chest pressure/heart rate feeling slow, vs wnl, notified vascular, at bedside, will place orders for ekg/trop. Pt w/o s/sx distress notedUnTrinity Health System [facility] Campus10-11-2022 NoteSpoke with Ashley with vascular update given on mag level of 1.4, will place orders for replacementUnTrinity Health System [facility] Campus10-11-2022 NotePatient asymptomaticUnTrinity Health System [facility] Campus10-11-2022 NoteEDELMIRA Luna notified of new scant blood noted to dressing, no new orders at this time, will continue to monitorUnTrinity Health System [facility] Campus10-10-2022 Note Patient: Patrick Rutherford Procedure Summary Date: 02/22/22 Room / Location: [address] / [facility] Operating Room Anesthesia Start: 1527 Anesthesia Stop: 1740 Procedure: Right Transcarotid Artery Revascularization (Right) Diagnosis: Preoperative examination, unspecified Stenosis of right carotid artery ( Preoperative examination, unspecified [Z01.818]) (Stenosis of right carotid artery [I65.21]) Surgeons: Jazz Diamond MD Responsible Provider: Kwabena Meza MD Anesthesia Type: general ASA Status: 3 Anesthesia Type: general Vitals Value Taken Time BP 146/50 02/22/221741 Temp 36.3 02/22/221741 Pulse 76 02/22/221741 Resp 17 02/22/221741 SpO2 97% 02/22/221741 Anesthesia Post Evaluation Patient location during evaluation: PACU Patient participation: complete - patient participated Level of consciousness: awake and alert Pain management: adequate Multimodal analgesia pain management approach Airway patency: patent Cardiovascular status: acceptable Respiratory status: acceptable Hydration status: acceptable There were no known notable events for this encounter. Lizz Larsen MD Lightout Examiner PGY-2 02/22/2022 5:42 PMSt. Charles Hospital10-10-2022 NoteArterial Line: Date/Time: 02/22/2022 3:55 PM An arterial line was placed Procedure performed using surface landmarks.in the OR for the following indication(s): continuous blood pressure monitoring and blood sampling needed. A 20 G (size), 4 inch (length), (type) catheter was placed, Seldinger technique used , into the Right radial artery, secured by Tegaderm and Line secured with biodisc, tegaderm, and tape. Events: patient tolerated procedure well with no complications. Staffing Performed: resident/BONDING SUPERVISOR/CAA Resident/BONDING SUPERVISOR: Lizz Larsen MDSt. Charles Hospital10-10-2022 NoteAirway Date/Time: 02/22/2022 3:38 PM Urgency: elective Airway not difficult General Information and Staff Patient location during procedure: OR Anesthesiologist: Kwabena Meza MD Resident/BONDING SUPERVISOR/CAA: Lizz Larsen MD Performed: resident/BONDING SUPERVISOR/CAA and other anesthesia staff Indications and Patient Condition Indications for airway management: anesthesia Spontaneous Ventilation: absent Sedation level: deep Preoxygenated: yes Patient position: sniffing MILS not maintained throughout Mask difficulty assessment: 1 - vent by mask Planned trial extubation Final Airway Details Final airway type: endotracheal airway Successful airway: ETT Cuffed: yes Successful intubation technique: video laryngoscopy Endotracheal tube insertion site: oral Blade: Destiney Blade size: #3 ETT size (mm): 7.5 Placement verified by: chest auscultation and capnometry Cuff volume (mL): 10 Measured from: lips ETT to lips (cm): 21 Number of attempts at approach: 1 Ventilation between attempts: none Number of other approaches attempted: 0 Additional Comments Arslan Calderón, Randal student performed intubationSt. Charles Hospital10-10-2022 NotePatient: Oral M Rutherford Procedure Information Date/Time: 02/22/22 1445 Procedure: Right Transcarotid Artery Revascularization vs Right Carotid Endarterectomy (Right) Location: [facility] OR [address] [place] [address] / [facility] Operating Room Surgeons: Jazz Diamond MD Relevant Problems Cardio (+) Stenosis of right carotid artery Clinical information reviewed: Tobacco Allergies Meds Med Hx Surg Hx Fam Hx Soc Hx Physical Exam Airway Mallampati: I TM distance: >3 FB Neck ROM: full Cardiovascular Rhythm: regular Rate: normal Dental (+) lower dentures, upper dentures Pulmonary - normal exam Abdominal Abdomen: soft Other findings: Quit smoking 1991. Diabetes since around 2011. Creatinine (recent) 1.16. CABG X 4 with AVR. Pt.'s granddaughter was present for the preoperative interview. Anesthesia Plan ASA 3 general (Arterial line. ) The patient is not a current smoker. Patient was previously instructed to abstain from smoking on day of procedure. Patient did not smoke on day of procedure. intravenous induction Postoperative administration of opioids is intended. Anesthetic plan and risks discussed with patient. Use of blood products discussed with patient who. Plan discussed with resident and medical student. Additional Equipment RequestsSt. Charles Hospital08-09-2022 Hospital Discharge instructions Patient Education 12/22/2021 15:22:24 Benign Prostatic Hyperplasia Benign Prostatic Hyperplasia Benign prostatic hyperplasia (BPH) is an enlarged prostate gland that is caused by the normal agingprocess and not by cancer. The prostate is a walnut-sized gland that is involved in the production of semen. It is located in front of the rectum and below the bladder. The bladder stores urine and the urethra is the tube that carries the urine out of the body. The prostate may get bigger as a man gets older. An enlarged prostate can press on the urethra. This can make it harder to pass urine. The build-up of urine in the bladder can cause infection. Back pressure and infection may progress to bladder damage and kidney (renal) failure. What are the causes? This condition is part of a normal aging process. However, not all men develop problems from this condition. If the prostate enlarges away from the urethra, urine flow will not be blocked. If it enlarges toward the urethra and compresses it, there will be problems passing urine. What increases the risk? This condition is more likely to develop in men over the age of 50 years. What are the signs or symptoms? Symptoms of this condition include: Getting up often during the night to urinate. Needing to urinate frequently during the day. Difficulty starting urine flow. Decrease in size and strength of your urine stream. Leaking (dribbling) after urinating. Inability to pass urine. This needs immediate treatment. Inability to completely empty your bladder. Pain when you pass urine. This is more common if there is also an infection. Urinary tract infection (UTI). How is this diagnosed? This condition is diagnosed based on your medical history, a physical exam, and your symptoms. Tests will also be done, such as: A post-void bladder scan. This measures any amount of urine that may remain in your bladder after you finish urinating. A digital rectal exam. In a rectal exam, your health care provider checks your prostate by putting a lubricated, gloved finger into your rectum to feel the back of your prostate gland. This exam detects the size of your gland and any abnormal lumps or growths. An exam of your urine (urinalysis). A prostate specific antigen (PSA) screening. This is a blood test used to screen for prostate cancer. An ultrasound. This test uses sound waves to electronically produce a picture of your prostate gland. Your health care provider may refer you to a specialist in kidney and prostate diseases (urologist). How is this treated? Once symptoms begin, your health care provider will monitor your condition (active surveillance or watchful waiting). Treatment for this condition will depend on the severity of your condition. Treatment may include: Observation and yearly exams. This may be the only treatment needed if your condition and symptoms are mild. Medicines to relieve your symptoms, including: ?Medicines to shrink the prostate. ?Medicines to relax the muscle of the prostate. Surgery in severe cases. Surgery may include: ?Prostatectomy. In this procedure, the prostate tissue is removed completely through an open incision or with a laparoscope or robotics. ?Transurethral resection of the prostate (TURP). In this procedure, a tool is inserted through the opening at the tip of the penis (urethra). It is used to cut away tissue of the inner core of the prostate. The pieces are removed through the same opening of the penis. This removes the blockage. ?Transurethral incision (TUIP). In this procedure, small cuts are made in the prostate. This lessens the prostate's pressure on the urethra. ?Transurethral microwave thermotherapy (TUMT). This procedure uses microwaves to create heat. The heat destroys and removes a small amount of prostate tissue. ?Transurethral needle ablation (TUNA). This procedure uses radio frequencies to destroy and remove a small amount of prostate tissue. ?Interstitial laser coagulation (ILC). This procedure uses a laser to destroy and remove a small amount of prostate tissue. ?Transurethral electrovaporization (TUVP). This procedure uses electrodes to destroy and remove a small amount of prostate tissue. ?Prostatic urethral lift. This procedure inserts an implant to push the lobes of the prostate away from the urethra. Follow these instructions at home: Take rfiq-hqq-jgseywj and prescription medicines only as told by your health care provider. Monitor your symptoms for any changes. Contact your health care provider with any changes. Avoid drinking large amounts of liquid before going to bed or out in public. Avoid or reduce how much caffeine or alcohol you drink. Give yourself time when you urinate. Keep all follow-up visits as told by your health care provider. This is important. Contact a health care provider if: You have unexplained back pain. Your symptoms do not get better with treatment. You develop side effects from the medicine you are taking. Your urine becomes very dark or has a bad smell. Your lower abdomen becomes distended and you have trouble passing your urine. Get help right away if: You have a fever or chills. You suddenly cannot urinate. You feel lightheaded, or very dizzy, or you faint. There are large amounts of blood or clots in the urine. Your urinary problems become hard to manage. You develop moderate to severe low back or flank pain. The flank is the side of your body between the ribs and the hip. These symptoms may represent a serious problem that is an emergency. Do not wait to see if the symptoms will go away. Get medical help right away. Call your local emergency services (911 in the [place] Do not drive yourself to the hospital. Summary Benign prostatic hyperplasia (BPH) is an enlarged prostate that is caused by the normal aging process and not by cancer. An enlarged prostate can press on the urethra. This can make it hard to pass urine. This condition is part of a normal aging process and is more likely to develop in men over the age of 50 years. Get help right away if you suddenly cannot urinate. This information is not intended to replace advice given to you by your health care provider. Make sure you discuss any questions you have with your health care provider. Document Released: 05/02/2006 Document Revised: 03/27/2019 Document Reviewed: 06/06/2017 [employer] Patient Education 2020 [employer] Follow Up Care 12/09/2021 11:45:24 With:BRENNA LUU, ABRIL Bernal Address: [facility] [address] , [place] [address]- When:Within 3 Month(s) [facility] 07-15-2022 Hospital Discharge instructions Patient Education 11/27/2021 10:39:42 Dysuria Dysuria Dysuria is pain or discomfort while urinating. The pain or discomfort may be felt in the part of your body that drains urine from the bladder (urethra) or in the surrounding tissue of the genitals. The pain may also be felt in the groin area, lower abdomen, or lower back. You may have to urinate frequently or have the sudden feeling that you have to urinate (urgency). Dysuria can affect both men and women, but it is more common in women. Dysuria can be caused by many different things, including: Urinary tract infection. Kidney stones or bladder stones. Certain sexually transmitted infections (STIs), such as chlamydia. Dehydration. Inflammation of the tissues of the vagina. Use of certain medicines. Use of certain soaps or scented products that cause irritation. Follow these instructions at home: General instructions Watch your condition for any changes. Urinate often. Avoid holding urine for long periods of time. After a bowel movement or urination, women should cleanse from front to back, using each tissue only once. Urinate after sexual intercourse. Keep all follow-up visits as told by your health care provider. This is important. If you had any tests done to find the cause of dysuria, it is up to you to get your test results. Ask your health care provider, or the department that is doing the test, when your results will be ready. Eating and drinking Drink enough fluid to keep your urine pale yellow. Avoid caffeine, tea, and alcohol. They can irritate the bladder and make dysuria worse. In men, alcohol may irritate the prostate. Medicines Take kqic-yka-bttncgk and prescription medicines only as told by your health care provider. If you were prescribed an antibiotic medicine, take it as told by your health care provider. Do notstop taking the antibiotic even if you start to feel better. Contact a health care provider if: You have a fever. You develop pain in your back or sides. You have nausea or vomiting. You have blood in your urine. You are not urinating as often as you usually do. Get help right away if: Your pain is severe and not relieved with medicines. You cannot eat or drink without vomiting. You are confused. You have a rapid heartbeat while at rest. You have shaking or chills. You feel extremely weak. Summary Dysuria is pain or discomfort while urinating. Many different conditions can lead to dysuria. If you have dysuria, you may have to urinate frequently or have the sudden feeling that you have tourinate (urgency). Watch your condition for any changes. Keep all follow-up visits as told by your health care provider. Make sure that you urinate often and drink enough fluid to keep your urine pale yellow. This information is not intended to replace advice given to you by your health care provider. Make sure you discuss any questions you have with your health care provider. Document Released: 01/28/2005 Document Revised: 04/14/2018 Document Reviewed: 02/16/2018 [employer] Patient Education 2020 [employer] Follow Up Care 10/26/2021 11:31:21 With:BRENNA LUU, Ted Echaavrria, URL Address: [address] [place] [address] [place] [address]- When: Unknown [facility] 04-26-2022 Hospital Discharge instructions Follow Up Care 09/08/2021 15:16:10 With:SAMANTHA CASTRO PA-C, URL Address: [address] [place] [address] When: Unknown [facility] Evaluation + Plan note No data available for this section [facility] Evaluation + Plan note Future Appointments Appointment Date:03/01/2022 01:15:00 PM Scheduled Provider:Ted CEJA MD Location:[facility] Appointment Type:URO Office Visit [facility] Evaluation + Plan note Future Appointments Appointment Date:12/13/2022 03:00:00 PM Scheduled Provider:Ted CEJA MD Location:[facility] Appointment Type:URO Office Visit [facility] evaluation noteNo assessment information available [facility] Work Phone: Evaluation noteNo InformationNortSaint [facility] Reco[facility] Other Hisiisj general Narrative - Reported* Type Description Date Medical History Diabetes Medical History HTN (hypertension) Medical History Hypercholesteremia Medical History Enlarged prostate Medical History Hypothyroid Surgical History C Artery Surgical History heart stent Surgical History carotid see Surgical History Stent x 1 Heart Surgical History Stent x 1 neck Surgical History triple bypass 08/2016 Hospitalization History see above [place] [employer] Other Hospital Discharge instructions No data available for this section General Surgery [place] [employer] Progress note No data available for this section [facility] Summary Purpose Family History No Family History Records FoundNo Family History Records FoundNo Family History Records FoundNo Family History Records FoundNo Family History Records Found Advance Directives No Advanced Directives Records Found Advance Directive Response Recorded Date/ Time Advance Directives No January 12, 2023 3:17pm Chief Complaint and Reason for Visit Chief Complaint K59.00 Chief Complaint K59.00 k59.00 k59.00 Additional Source Comments Care Team (unrecognized sect ion and content) Team Status: Active Member Role Status Dates Shreyas Adame MD Primary Care Provider Active Team Status: Inactive Member Role Status Dates Shreyas Adame MD Primary Care Provider Active Lamin Thomason MD Attending Provider Active (unrecognized sect ion and content) No Status Records FoundNo Status Records FoundNo Status Records FoundNo Status Records FoundNo Status Records Found INFORMATION SOURCE (unrecogn ized section and content) DATE CREATED AUTHOR 12/01/2021 [facility] DATE CREATED AUTHOR AUTHOR'S ORGANIZ ATION 04/09/2022 [facility] DATE CREATED AUTHOR AUTHOR'S ORGANIZ ATION 09/29/2022 [facility] DATE CREATED AUTHOR AUTHOR'S ORGANIZ ATION 01/20/2023 [facility] DATE CREATED AUTHOR AUTHOR'S ORGANIZ ATION 02/05/2023 [facility] REASON FOR VISIT (unrecogniz ed section and content) PATIENT IS HERE FOR FECAL IN CONTINENCE AT THE REQUEST OF DR PURDY. CT ABD/PELVIS AND EGD/COLON IN PATIENT DOCSCREON Goals (unrecognized section and content) Goals may be documented in a n alternate section FOR RECORDS PERTAINING TO PATIENTS WHO ARE OR HAVE BEEN ENROLLED IN A CHEMICAL DEPENDENCY/SUBSTANCEABUSE PROGRAM, SOME INFORMATION MAY BE OMITTED. This clinical summary was aggregated from multiple sources. Caution should be exercised in using it in the provision of clinical care. This summary normalizes information from multiple sources, and as a consequence, information in this document may materially change the coding, format and clinical context of patient data. In addition, data may be omitted in some cases. CLINICAL DECISIONS SHOULD BE BASED ON THE PRIMARY CLINICAL RECORDS. [employer] [facility] provides no warranty or guarantee of the accuracy or completeness of information in this document.
[2023-05-18 14:18] LABS: Basophils Absolute Auto 0.1 10^3/uL (0.0-0.1); Basophils Percent Auto 0.6 % (0.2-2.0); Eosinophils Absolute Auto 0.3 10^3/uL (0.0-0.7); Eosinophils Percent Auto 2.9 % (0.9-7.0); Hematocrit 35.8 % (42.0-54.0); Hemoglobin 11.6 g/dL (14.0-18.0); Immature Granulocytes Abs Auto 0.03 10^3/uL (0.00-0.03); Immature Granulocytes Pct Auto 0.3 % (0.0-0.5); Lymphocytes Absolute Auto 3.2 10^3/uL (1.2-3.8); Mean Corpuscular HGB Conc 32.4 g/dL (29.9-35.2); Mean Corpuscular Hemoglobin 30.3 pg (25.9-34.0); Mean Corpuscular Volume 93.5 fL (80.0-94.0); Mean Platelet Volume 9.3 fL (9.5-13.5); Monocytes Absolute Auto 0.9 10^3/uL (0.3-0.8); Monocytes Percent Auto 10.1 % (1.7-12.0); Neutrophils Absolute Auto 4.6 10^3/uL (1.4-6.5); Neutrophils Percent Auto 51.1 % (43.0-75.0); Platelet Count 288 10^3/uL (150-450); Red Blood Count 3.83 10^6/uL (4.70-6.10); Red Cell Distribution Width 14.1 % (11.0-15.0); White Blood Count 9.1 10^3/uL (4.0-11.0)
[2023-05-18 14:56] LABS: INR 0.99; Partial Thromboplastin Time 25.2 sec (22.3-36.2); Prothrombin Time 10.5 sec (9.0-11.6)
== END 2023-05-18 13:55 | disposition home or self-care (01) ==
LOC: LAB 13:55
PROVIDERS: PCP Family Medicine; Visit Provider Family Medicine
DX: I10 Essential (primary) hypertension (principal); E11.9 Type 2 diabetes mellitus without complications; G45.9 Transient cerebral ischemic attack, unspecified; E07.89 Other specified disorders of thyroid
CPT/HCPCS: 36415; 85025; 85610; 85730

== ENCOUNTER 2023-05-27 23:21 | Outpatient (REF) | payer MEDICARE, BC, SELFPAY ==
--- OUTSIDE RECORDS SUMMARY | 2023-05-27 23:25 | XMS_ITS | CCD ---
Author Name Unknown Address [address] [place] [address] Organization [facility] Care Team Providers Care Contact Clerk Name Role Phone Shreyas Adame Primary Care Physician [phone] SHREYAS ADAME Primary Care Unavailable NAZZAL, MUNIER [...] MUNIER Admitting Unavailable NAZZAL, MUNIER Attending Unavailable DEEP Clement, DR MARTIN Primary Care Unavailable BRENNA [...] Unavailable MD Shreyas Adame Primary Care Provider [phone] MD Lamin Thomason Attending Provider [phone] NILL, Tevin R Attending Unavailable NILL, Tevin R Attending Unavailable Shreyas Adame Referring Unavailable NILL, Tevin R Attending Unavailable CEJA, Ted R Attending Unavailable MICHAEL, SAMANTHA Diego Attending Unavailable CEJATed Attending Unavailable CEJA, Ted Echavarria Attending Unavailable [...] Date of Onset Reaction(s) Facility (1 source) 35192,00; Translations: [88345,00] Propensity to adverse reactions (disorder) 9 [facility] Repository (1 source) No Known Medication Allergies; Translations: [No Known Medication Allergies] Propensity to adverse reactions (disorder) [facility] Repository Medications Current Medications Medication Drug Class(es) Dates Sig (Normalized) Sig (Original) amLODIPine 10 mg oral tablet (2 sources) Dihydropyridine Calcium Channel Gerry take 1 tablet by mouth every twenty-four hours amLODIPine Besylate 10 MG 1 tablet Orally Once a day Active amylase 314487 unt / lipase 35435 unt / protease 224052 unt delayed release oral capsule (1 source) Start: 01-31-2023 Creon 42396-005265 UNIT 2 CAPSULES WITH MEALS. 1 WITH [...] 25 mg oral tablet (6 sources) alpha-Adrenergic Grery, beta-Adrenergic Gerry Start: 11-27-2021 take 1 tablet [...] BID, # 28 cap(s), Refills(s) 0, Pharmacy: [address], 168, cm, 11/27/21 10:35:00 EDT, Height/Length Dosing, 78, kg, 11/27/21 10:35:00 EDT, Weight Dosing Start Date: 11/27/21 Status: Ordered dutasteride 0.5 mg oral capsule (4 sources) 5-alpha Reductase Inhibitor Start: 11-27-2021 take 1 capsule by mouth once daily dutasteride 0.5 mg Cap 0.5 mg = 1 cap(s), Oral, Daily, # 90 cap(s), Refills(s) 3, Pharmacy: [facility], 168, cm, 11/27/21 10:35:00 EDT, Height/Length Dosing, 78, kg, 11/27/21 10:35:00 EDT, Weight Dosing Start Date: 11/27/21 Status: Ordered glimepiride 4 mg oral tablet (7 sources) Sulfonylurea Start: 02-01-2019 take 1 tablet by mouth once daily glimepiride 4 mg Tab 4 mg = 1 tab(s), Oral, Daily Start Date: 02/01/19 Status: Ordered Start: 02-01-2019 take 2 tablets by [facility] once daily glimepiride 4 mg [...] 09/17/22 Status: Ordered take 1 tablet by [facility] once daily in the morning Synthroid 50 [...] Onset: 01-05-2022 Episodic Other aftercare (1 source) care home (current) use of aspirin; Translations: [RADIOLOGY DIRECTOR CURRENT USE OF ASPIRIN] Onset: 01-05-2022 Episodic Other aftercare (1 source) care home (current) use of oral hypoglycemic drugs; Translations: [SKILLED NURSING USE ORAL HYPOGLYCEMIC DX] Onset: 01-05-2022 Episodic Other aftercare (1 source) 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 coli 0157:H7 Isolated PERFORMED BY: [place] [address] [place] [address] PATHOLOGIST SENIOR FIELD ENGINEER SUMAN HAY M.D. [facility] Comment on above: Performed By: #### C MAYELAOL #### [place] [address] [place] Calprotectin, Fecalon 2022 Calprotectin, Fecal 78 Normal 0-120 [facility] Comment on above: Order Comment: Reaso n for Exam Constipation, unspecified constipation type Result Comment: Conc entration Interpretation Follow-Up < 5 - 50 ug/g Normal None >50 -120 ug/g Borderline Re-evaluate in 4-6 weeks >120 ug/g Abnormal Repeat as clinically indicated Performed at: [facility] [address] [id number] Orthotist: Miguel Avilez MD, Phone: [phone] PERFORMED BY: [place] [address] PATHOLOGIST SENIOR FIELD ENGINEER SUMAN HAY M.D. Performed By: #### O [...] possibility of a parasitic infection. Performed at: [facility] [address] [id number] Orthotist: Igor Roque PhD, Phone: [phone] PERFORMED BY: [place] [address] PATHOLOGIST SENIOR FIELD ENGINEER SUMAN HAY M.D. Normal [facility] Comment on above: Performed By: #### O PEXAM, CALPROTECT, ELASTASE STOOL #### [facility] , Pancreatic Elastase, Stoolon 01-16-2023 Pancreatic Elastase, Stool 150 Low >200 [facility] Comment on above: Order Comment: Reaso n for Exam Constipation, unspecified constipation type Result Comment: Resu lt Units: ug Elast./g Severe Pancreatic Insufficiency: <100 Moderate Pancreatic Insufficiency: 100 - 200 Normal: >200 Performed at: [address] [id number] Orthotist: Miguel Avilez MD, Phone: [phone] PERFORMED BY: [place] [address] PATHOLOGIST SENIOR FIELD ENGINEER SUMAN HAY M.D. Performed By: #### O PEXAM, CALPROTECT, ELASTASE STOOL #### [facility] , C reactive protein [Mass/vol ume] in Serum or PlasmaOrdered By: Imad Asaad on 01-12-2023 CRP [Mass/Vol] < 0.5 mg/dL 0.0-0.5 [facility] C-Reactive Proteinon 023 CRP [Mass/Vol] mg/L Normal 0.0-0.5 [facility] Comment on above: Order Comment: Reaso n for Exam Constipation, unspecified constipation type Performed By: #### T SH3, ESR, CRP #### [facility] [address] [place] [address] #### CELIAC, HIV SCREEN #### [facility] , Celiacon 01-12-2023 Deamidated Gliadin Abs, IgA 10 Normal 0- [facility] Comment on above: Order Comment: Reaso n for Exam Constipation, unspecified constipation type Result Comment: Nega tive 0 - 19 Weak Positive 20 - 30 Moderate to Strong Positive >30 Performed By: #### T SH3, ESR, CRP #### [facility] [address] [place] [address] #### CELIAC, HIV SCREEN #### [facility] , Deamidated Gliadin Abs, IgG 2 Normal 0-19 [facility] Comment on above: Order Comment: Reaso n for Exam Constipation, unspecified constipation type Result Comment: Nega tive 0 - 19 Weak Positive 20 - 30 Moderate to Strong Positive >30 Performed By: #### T SH3, ESR, CRP #### [facility] [address] [place] [address] [place] #### CELIAC, HIV SCREEN #### [facility] , Endomysial Antibody IgA Negative Normal Negative [facility] Comment on above: Order Comment: Reaso n for Exam Constipation, unspecified constipation type Performed By: #### T SH3, ESR, CRP #### [facility] [address] [place] [address] [place] #### CELIAC, HIV SCREEN #### [facility] , Immunoglobulin A, Qn, Serum 437 mg/dL Normal 61-437 [facility] Comment on above: Order Comment: Reaso n for Exam Constipation, unspecified constipation type Result Comment: Perf ormed at: - [facility] [address] [id number] Orthotist: Igor Roque PhD, Phone: [phone] Performed By: #### T SH3, ESR, CRP #### [facility] [address] [place] [address] [place] #### CELIAC, HIV SCREEN #### [facility] , T-Transglutaminase (tTG) IgA <2 Normal 0-3 [facility] Comment on above: Order Comment: Reaso n for Exam Constipation, unspecified constipation type Result Comment: Nega tive 0 - 3 Weak Positive 4 - 10 Positive >10 Tissue Transglutaminase (tTG) has been identified as the endomysial antigen. Studies have demonstr- ated that endomysial IgA antibodies have over 99% specificity for gluten sensitive enteropathy. Performed By: #### T SH3, ESR, CRP #### [facility] [address] [place] [address] [place] #### CELIAC, HIV SCREEN #### [facility] , T-Transglutaminase (tTG) IgG 5 Normal 0-5 [facility] Comment on above: Order Comment: Reaso n for Exam Constipation, unspecified constipation type Result Comment: Nega tive 0 - 5 Weak Positive 6 - 9 Positive >9 Performed By: #### T SH3, ESR, CRP #### [address] #### CELIAC, HIV SCREEN #### [facility] , Erythrocyte Sedimentation Ra miguel 01-12-2023 ESR (Bld) [Velocity] 19 mm/h Normal 0-19 [facility] Comment on above: Order Comment: Reaso n for Exam Constipation, unspecified constipation type Result Comment: PERF ORMED BY: [place] [address] PATHOLOGIST SENIOR FIELD ENGINEER SUMAN HAY M.D. Performed By: #### T SH3, ESR, CRP #### [address] #### CELIAC, HIV SCREEN #### [facility] , Erythrocyte sedimentation ra te by Photometric methodOrdered By: Imad Asaad on 01-12-2023 ESR Photometric method (Bld) [Velocity] 19 mm/hr 0- [facility] HIV 1/O/2 Antigen/Antibodyon 01-12-2023 HIV Screen 4th Generation Non-Reactive Normal Non Reactive [facility] Comment on above: Order Comment: Reaso n for Exam Constipation, unspecified constipation type Result Comment: HIV Negative HIV-1/HIV-2 antibodies and HIV-1 p24 antigen were NOT detected. There is no laboratory evidence of HIV infection. Performed at: [address] [id number] Orthotist: Igor Roque PhD, Phone: [phone] PERFORMED BY: [place] [address] PATHOLOGIST SENIOR FIELD ENGINEER SUMAN HAY M.D. Performed By: #### T SH3, ESR, CRP #### [facility] [address] [place] [address] [place] #### CELIAC, HIV SCREEN #### [facility] , HIV 1 and HIV-2 antibody ass ay with HIV-1 p24 antigen detectionOrdered By: Imad Asaad on 01-12-2023 HIV 1+2 Ab+HIV1 p24 Ag IA Ql Non-Reactive Non Reactive [facility] Comment on above: HIV NegativeHIV-1/HI V-2 antibodies and HIV-1 p24 antigen were NOTdetected. There is no laboratory evidence of HIV infection.Performed at: CB - [facility] [address] [id number] Director: Igor Roque PhD, Phone: [phone] IgA [Mass/volume] in Serum o r PlasmaOrdered By: Laimn Thomason on 01-12-2023 IgA [Mass/Vol] 437 mg/dL 61-437 [facility] Comment on above: Performed at: CB [facility] [address] [id number] Director: Igor Roque PhD, Phone: [phone] No Panel InformationOrdered By: Lamin Thomason on 01-12-2023 Endomysial IgA Antibody Negative Negative [facility] Serum gliadin peptide IgA an tibody assay (units/volume)Ordered By: Lamin Thomason on 01-12-2023 Gliadin peptide IgA Qn (S) 10 units 0-19 [facility] Comment on above: Negative 0 - 19 Weak Positive 20 - 30 Moderate to Strong Positive >30 Serum gliadin peptide IgG an tibody assay (units/volume)Ordered By: Lamin Thomason on 01-12-2023 Gliadin peptide IgG Qn (S) 2 units 0-19 [facility] Comment on above: Negative 0 - 19 Weak Positive 20 - 30 Moderate to Strong Positive >30 Serum tissue transglutaminas e (tTG) IgA antibody assay (units/volume)Ordered By: Lamin Thomason on 01-12-2023 tTG IgA Qn (S) <2 U/mL 0-3 [facility] Comment on above: Negative 0 - 3 Weak Positive 4 - 10 Positive >10 Tissue Transglutaminase (tTG) has been identified as the endomysial antigen. Studies have demonstr- ated that endomysial IgA antibodies have over 99% specificity for gluten sensitive enteropathy. Serum tissue transglutaminas e (tTG) IgG antibody assay (units/volume)Ordered By: Lamin Thomason on 01-12-2023 tTG IgG Qn (S) 5 U/mL 0-5 [facility] Comment on above: Negative 0 - 5 Weak Positive 6 - 9 Positive >9 Thyroid Stimulating Hormoneo n 01-12-2023 TSH Qn 1.54 m[IU]/L Normal 0.45-5.33 [facility] Comment on above: Order Comment: Reaso n for Exam Constipation, unspecified constipation type Result Comment: PERF ORMED BY: [place] [address] PATHOLOGIST SENIOR FIELD ENGINEER SUMAN HAY M.D. 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 Take zjgi-mfh-sghusmy and prescription medicines only as told by [...] Where to find more information ? National [place] of Diabetes and Digestive and Kidney Diseases: (more content not included)... Normal [facility] Urology Office/Clinic Noteon 12-13-2022 Urology Office/Clinic Note [...] Follow-up With When Contact Information BRENNA LUU, Ted Echavarria, URL [facility] [address], [place] [address]- [phone] Additional Instructions: 6 mos Patient Education Prostatitis [...] mg Oral (more content not included)... Normal [facility] Comment on above: Result Comment: Elec tronically Signed By: Ted CEJA MD\.br\Date and Time Signed: 12/13/22 16:29 EDT\.br\Electronically Co-Signed By: Wilda Choudhary\.br\Date and Time Co-Signed: 12/13/22 16:27 EDT RAD - CT Reporton 10-26-2022 RAD - CT Report [id number]:127 Normal [facility] Lab Reportson 10-24-2022 Lab Reports [id number]:127 Normal [facility] Ambulatory Visit Summaryon 0 10-06-2022 Ambulatory Visit [...] LUU, Ted Echavarria Where: [facility] General Surgery Office/Clini c Noteon 10-06-2022 General [...] Recorded inf (more content not included)... Normal [facility] Comment on above: Result Comment: Elec tronically Signed By: GURWINDER LUU, Tevin Echavarria\.br\Date and Time Signed: 10/06/22 16:12 EDT Outside Colonoscopyon 2022 Outside Colonoscopy [id number]:127 Normal [facility] POINT OF CARE GLUCOSEon 09-13 Glucose [Mass/Vol] 132 mg/dL Critically high 74-106 [facility] Comment on above: Performed By: #### P OCGLUC #### [facility] [address] [address] [address] Lety Torres Consent for Procedure/Surger yon 09-23-2022 Consent for Procedure/Surgery [id number]:127 Normal [facility] Ambulatory Visit Summaryon 0 09-22-2022 Ambulatory Visit [...] CEJA MD Where: [facility] Normal [facility] Physician Referralon 023 Physician Referral [id number]:127 Normal [facility] Screenson 06-10-2022 Screens [id number]:127 Normal [facility] Patient Educationon 06-09-19 23 Patient Education Infectious Disease Prostatitis Prostatitis is swelling of the prostate gland. The prostate helps to make semen. It is below a man's bladder, in front of the rectum. There are different types of prostatitis. Follow these instructions at home: ? Take ifar-ruv-vxbwbbj and prescription medicines only as told by [...] Reviewed: 01/20/2017 Elsevier Patient Education ? 2019 Basic6. Urology Benign Prostatic Hyperplasia Benign prostatic hyperplasia [...] the sa (more content not included)... Normal [facility] Urology Office/Clinic Noteon 06-09-2022 Urology Office/Clinic Note Chief Complaint f/u to Cysto HPI Staff PRW pt here today to follow up to Cysto done 12/22/21 due to BPH & Chronic Prostatitis. [facility] 12/25/21 due to not urinating. PVR [...] breast cancer, broke hip and is in fci, son has MS and is wheelchair bound). [...] SAMANTHA CASTRO PA-C, URL In 6 months [address] [place] [address] Additional Instructions: Patient Education Prostatitis, Szfs-xx-Xrgl Benign Prostatic Hyperplasia Documentation recorded by the [...] vaccine (more content not included)... Normal [facility] Comment on above: Result Comment: Elec tronically Signed By: MICHAEL MOROCHO, SAMANTHA Ramírez\Date and Time Signed: 06/09/22 15:36 EST Follow-Upon 03-29-2022 Follow-Up [id number] Patrick Rutherford M 1940 M Date Provider Department Center 03/29/2022 JelaniCINDYTHALIA ZAVALAEN BHAVANIASEEMIL [place] [facility] No family history on file Level of Service:26495 ME POSTOP FOLLOW UP VISIT RELATED TO ORIGINAL PX Reason for Visit and Comments: Post-op [483] - TCAR follow up Normal [facility] Office Visiton 03-08-2022 Follow-up visit [id number] Patrick Rutherford M 1940 Date Provider Department Center 03/08/2022 VALERYTRIPP TRIPLETT HVCVASENDO [place] [facility] No family history on file Level of Service:44937 ME POSTOP FOLLOW UP VISIT RELATED TO ORIGINAL PX Reason for Visit and Comments: Post-op [483] - Post op TCAR on 02/22/22 [facility] BASIC METABOLIC PANELon 02-13 Anion gap [Moles/Vol] 6 mmol/L Normal <=30 [facility] Comment on above: Performed By: #### L AB15 ####[facility] ([facility] [place] [address] Calcium [Mass/Vol] 8.8 mg/dL Normal 8.6-10.3 [facility] Comment on above: Performed By: #### L AB15 ####[facility] ([facility])[address] [place] [address] Chloride [Moles/Vol] 108 mmol/L High 98-107 [facility] Comment on above: Performed By: #### L AB15 ####[facility] ([facility])[address] [place] [address] CO2 [Moles/Vol] 24 mmol/L Normal 21-31 [facility] Comment on above: Performed By: #### L AB15 ####[facility] ([facility])[address] [place] [address] Creatinine [Mass/Vol] 1.18 mg/dL Normal 0.70-1.30 [facility] Comment on above: Performed By: #### L AB15 ####[facility] ([facility])[address] [place] [address] GLOMERULAR FILTRATION RATE ML/MIN/1.73 SQ M.PREDICTED 56.7 mL/min/1.73m*2 Low >60.0 [facility] Comment on above: Result Comment: The [facility]???s estimated glomerular filtration rate (eGFR) will no [...] of individuals. Performed By: #### L AB15 ####[facility] ([facility])[address] [place] [address] Glucose [Mass/Vol] 56 mg/dL Low 70-100 [facility] Comment on above: Performed By: #### L AB15 ####[facility] ([facility])[address] [place] [address] Potassium [Moles/Vol] 3.9 mmol/L Normal 3.5-5.1 [facility] Comment on above: Performed By: #### L AB15 ####[facility] ([facility])[address] [place] [address] Sodium [Moles/Vol] 138 mmol/L Normal 136-145 [facility] Comment on above: Performed By: #### L AB15 ####[facility] ([facility])[address] [place] [address] Urea nitrogen [Mass/Vol] 20 mg/dL Normal 7-25 [facility] Comment on above: Performed By: #### L AB15 ####[facility] [place] [address] UREA NITROGEN/CREATININE (MASS RATIO) IN SER/PLAS 16.95 Normal [facility] Comment on above: Performed By: #### L AB15 ####[facility] ([facility])[address] [place] [address] CBCon 02-24-2022 Erythrocyte distribution width (RBC) [Ratio] 14.0 % Normal 11.5-15.0 [facility] Comment on above: Performed By: #### L [id number] ####[facility] ([facility])[address] [place] [address] ERYTHROCYTE MEAN CORPUSCULAR HEMOGLOBIN CONCENTRATION (G/DL) BY AUTOMATED 32.7 g/dL Normal 32.0-35.0 [facility] Comment on above: Performed By: #### L [id number] ####[facility] ([facility])[address] [place] [address] Hematocrit (Bld) [Volume fraction] 27.5 % Low 39.0-55.0 [facility] Comment on above: Performed By: #### L [id number] ####[facility] ([facility])[address] [place] [address] Hemoglobin (Bld) [Mass/Vol] 9.0 g/dL Low 13.0-17.0 [facility] Comment on above: Performed By: #### L [id number] ####[facility] ([facility])[address] [place] [address] MCH (RBC) [Entitic mass] 30.4 pg Normal 27.0-33.0 [facility] Comment on above: Performed By: #### L [id number] ####[facility] [place] [address] MCV (RBC) [Entitic vol] 92.9 fL Normal 82.0-98.0 [facility] Comment on above: Performed By: #### L [id number] ####[facility] ([facility] [place] [address] PLATELETS (10*3/UL) IN BLOOD AUTOMATED COUNT 282 10*3/uL Normal 150-400 [facility] Comment on above: Performed By: #### L [id number] ####[facility] ([facility])[address] [place] [address] RBC (Bld) [#/Vol] 2.96 10*6/uL Low 4.20-5.70 [facility] Comment on above: Performed By: #### L [id number] ####[facility] ([facility])[address] [place] [address] WBC (Bld) [#/Vol] 9.28 10*3/uL Normal 4.00-10.60 [facility] Comment on above: Performed By: #### L [id number] ####[facility] ([facility])[address] [place] [address] MAGNESIUMon 02-24-2022 Magnesium [Mass/Vol] 1.9 mg/dL Normal 1.9-2.7 [facility] Comment on above: Performed By: #### L [id number] #### [facility] ([facility]) [address] [place] [address] NURSNOTEon 02-24-2022 NURSNOTE Attempted to call re port to [place] x2 with no pickup. RN will be happy to give report if facility chooses to call upon their receipt of the patient. Normal [facility] PHOSPHORUSon 02-24-2022 Magnesium [Mass/Vol] 4.7 mg/dL Normal 2.5-5.0 [facility] Comment on above: Performed By: #### L [id number] ####[facility] ([facility])[address] [place] [address] POCT GLUCOSE METER UNSOLICIT ED RESULTSon 02-24-2022 Glucose [Mass/Vol] 144 mg/dL High 70-105 [facility] Comment on above: Result Comment: daisy [email or web address] Performed By: #### L [id number] ####[facility] ([facility])[address] [place] [address] Glucose [Mass/Vol] 196 mg/dL High 70-105 [facility] Comment on above: Result Comment: daisy [email or web address] Performed By: #### L [id number] ####[facility] ([facility])[address] [place] [address] Glucose [Mass/Vol] 113 mg/dL High 70-105 [facility] Comment on above: Result Comment: etay [email or web address] Performed By: #### L [id number] ####[facility] ([facility])[address] [place] [address] BASIC METABOLIC PANELon 10- Anion gap [Moles/Vol] 7 mmol/L Normal <=30 [facility] Comment on above: Performed By: #### L [id number] ####[facility] ([facility]AKER)[address] [place] [address] Calcium [Mass/Vol] 9.1 mg/dL Normal 8.6-10.3 [facility] Comment on above: Performed By: #### L [id number] ####[facility] ([facility])[address] [place] [address] Chloride [Moles/Vol] 109 mmol/L High 98-107 [facility] Comment on above: Performed By: #### L [id number] ####[facility] (BEAKER)[address] [place] [address] CO2 [Moles/Vol] 22 mmol/L Normal 21-31 [facility] Comment on above: Performed By: #### L [id number] ####[facility] ([facility])[address] [place] [address] Creatinine [Mass/Vol] 0.88 mg/dL Normal 0.70-1.30 [facility] Comment on above: Performed By: #### L [id number] ####[facility] ([facility])[address] [place] [address] GLOMERULAR FILTRATION RATE ML/MIN/1.73 SQ M.PREDICTED 79.4 mL/min/1.73m*2 Normal >60.0 [facility] Comment on above: Result Comment: The [facility]???s estimated glomerular filtration rate (eGFR) will no [...] of individuals. Performed By: #### L [id number] ####[facility] ([facility])[address] [place] [address] Glucose [Mass/Vol] 91 mg/dL Normal 70-100 [facility] Comment on above: Performed By: #### L [id number] ####[facility] ([facility])[address] [facility] [address] Potassium [Moles/Vol] 4.3 mmol/L Normal 3.5-5.1 [facility] Comment on above: Performed By: #### L [id number] ####[facility] ([facility])[address] [facility] [address] Sodium [Moles/Vol] 138 mmol/L Normal 136-145 [facility] Comment on above: Performed By: #### L [id number] ####[facility] ([facility])[address] [facility] [address] Urea nitrogen [Mass/Vol] 14 mg/dL Normal 7-25 [facility] Comment on above: Performed By: #### L [id number] ####[facility] ([facility])[address] [facility] [address] UREA NITROGEN/CREATININE (MASS RATIO) IN SER/PLAS 15.91 Normal [facility] Comment on above: Performed By: #### L [id number] ####[facility] ([facility])[address] [place] [address] CBCon 02-23-2022 Erythrocyte distribution width (RBC) [Ratio] 14.3 % Normal 11.5-15.0 [facility] Comment on above: Performed By: #### L [id number] ####[facility] ([facility]ER)[address] [address] ERYTHROCYTE MEAN CORPUSCULAR HEMOGLOBIN CONCENTRATION (G/DL) BY AUTOMATED 34.7 g/dL Normal 32.0-35.0 [facility] Comment on above: Performed By: #### L [id number] ####[facility] [address] Hematocrit (Bld) [Volume fraction] 30.0 % Low 39.0-55.0 [facility] Comment on above: Performed By: #### L [id number] ####[facility] ([facility] [place] [address] Hemoglobin (Bld) [Mass/Vol] 10.4 g/dL Low 13.0-17.0 [facility] Comment on above: Performed By: #### L [id number] ####[facility] ([facility]ER)[address] [address] MCH (RBC) [Entitic mass] 31.5 pg Normal 27.0-33.0 [facility] Comment on above: Performed By: #### L [id number] ####[facility] ([facility])[address] [address] MCV (RBC) [Entitic vol] 90.9 fL Normal 82.0-98.0 [facility] Comment on above: Performed By: #### L [id number] ####[facility] ([facility])[address] [place] [address] PLATELETS (10*3/UL) IN BLOOD AUTOMATED COUNT 306 10*3/uL Normal 150-400 [facility] Comment on above: Performed By: #### L [id number] ####[facility] ([facility]ER)[address] [address] RBC (Bld) [#/Vol] 3.30 10*6/uL Low 4.20-5.70 [facility] Comment on above: Performed By: #### L [id number] ####[facility] ([facility])[address] [place] [address] WBC (Bld) [#/Vol] 10.55 10*3/uL Normal 4.00-10.60 [facility] Comment on above: Performed By: #### L [id number] ####[facility] ([facility])[address] [place] [address] Documentationon 02-23-2022 Documentation [id number] Patrick Rutherford M 1940 M Date Provider Department Center 02/23/2022 JENNIFER COYNE [facility] [place] [facility] No family history on file Normal [facility] MAGNESIUMon 02-23-2022 Magnesium [Mass/Vol] 1.4 mg/dL Low 1.9-2.7 [facility] Comment on above: Performed By: #### L [id number] ####[facility] ([facility])[address] [place] [address] NURSNOTEon 02-23-2022 NURSNOTE Last heparin dose gi christopher at 0042. 0600 dose rescheduled to 0900 , discussed with pharmacy. Normal [facility] NURSNOTE Tylenol given as ord ered, Pt received oral medication well without issue. Pt is able to swallow, and speak in full sentences without difficulty. Airway intact, no trach deviation noted. Normal [facility] PHOSPHORUSon 02-23-2022 Magnesium [Mass/Vol] 4.5 mg/dL Normal 2.5-5.0 [facility] Comment on above: Performed By: #### L [id number] ####[facility] ([facility])[address] [place] [address] POCT GLUCOSE METER UNSOLICIT ED RESULTSon 02-23-2022 Glucose [Mass/Vol] 99 mg/dL Normal 70-105 [facility] Comment on above: Result Comment: [email or web address] Performed By: #### L [id number] ####[facility] ([facility]ER)[address] [place] [address] Glucose [Mass/Vol] 190 mg/dL High 70-105 [facility] Comment on above: Result Comment: [email or web address] [email or web address] Performed By: #### L [id number] ####[facility] ([facility])[address] [place] [address] Glucose [Mass/Vol] 108 mg/dL High 70-105 [facility] Comment on above: Result Comment: [email or web address] Performed By: #### L [id number] ####[facility] ([facility])[address] [place] [address] Glucose [Mass/Vol] 132 mg/dL High 70-105 [facility] Comment on above: Result Comment: [email or web address] Performed By: #### L [id number] ####[facility] ([facility])[address] [place] [address] PROTIME-INRon 02-23-2022 INR IN PPP BY COAGULATION ASSAY 1.08 Normal 0.90-1.10 [facility] Comment on above: Result Comment: ACCC P [...] CHEST 1995;108:231S-246S. Performed By: #### L [id number] ####[facility] ([facility]AKER)[address] [place] [address] PROTHROMBIN TIME (PT) IN PPP BY COAGULATION ASSAY 13.9 Seconds Normal 12.3-14.8 [facility] Comment on above: Performed By: #### L [id number] ####[facility] ([facility]ER)[address] [place] [address] TROPONIN Ion 02-23-2022 Troponin I.cardiac [Mass/Vol] 0.02 ng/mL Normal 0.00-0.04 [facility] Comment on above: Result Comment: REFE RENCE RANGES: 0.00 - 0.14 ng/mL NEGATIVE 0.15 - 0.25 ng/mL INDETERMINATE > 0.25 ng/mL INDICATIVE OF AN M.I. Performed By: #### L [id number] ####[facility] ([facility])[address] [place] [address] XR CHEST 1 VIEWon 02-23-2022 XR CHEST 1 VIEW Single view chest History: Difficulty breathing, shortness of breath Comparison: 08/23/2016 Findings: Single portable view of the chest. Stable cardiomediastinal silhouette. There is atherosclerotic thoracic aorta. No focal consolidation large effusion or pneumothorax. IMPRESSION: No evidence of acute cardiopulmonary process. Electronically signed: Tevin Prieto. Normal [facility] CONSULTon 02-22-2022 CONSULT -------- Attestation signed by [...] Rutherford Age - 81 y.o. - 1940 [facility] # - [id number] Date of Admission - 02/22/2022 12:06 PM [...] Coronary artery disease, COVID-19 (01/14/2022), Diabetes mellitus ([facility]), Fractures, GERD (gastroesophageal reflux disease), History of [...] PRN fentaNYL (more content not included)... Normal [facility] HPon 02-22-2022 [facility] General Surgery HISTORY & PHYSICAL Chief Complaint: [...] angio w and wo IV contrast Narrative: [facility] Department of Radiology [address] [place] [id number] === (more content not included)... Normal [facility] NURSNOTEon 02-22-2022 NURSNOTE Vascular at bedside assessing patient. Vascular changed patient dressing. No new orders at this time. Evy Randhawa ENERGY CROP FARMER Normal [facility] NURSNOTE Since arrival to PAC U patients neck has measure 22 inch. Patient neck is now measuring 22.5 inches. Patient denies difficulty swallowing and difficulty breathing. Vascular team answered page from Jeremy (surgery) and is coming to see patient at bedside. Evy Randhawa ENERGY CROP FARMER Normal [facility] REGINA Attempted to page va scular multiple time over the last half hour. Patients R side of neck feels firm and noted to have serosanguineous drainage on dressing. MICU doctor at bedside. Patient stable. Patient states no difficulty swallowing or breathing. MICU doctor states no new orders at this time and to continue to page vascular. Evy Randhawa ENERGY CROP FARMER Normal [facility] NURSCARLOS CONTRAST: 40ML 219 MGY 5.7 MIN Normal [facility] NURSNOTE ACT: 1618: BASELINE - 122 1647: ACT 212 1658: ACT 237 Normal [facility] OPNOTEon 02-22-2022 OPNOTE Right Transcarotid A rtery Revascularization (TCAR) Date: 02/22/2022 Location: [facility] OR Name: Patrick Rutherford, : 1940, Diagnosis [...] TCAR STENT SYSTEM 8MM X 40MM Implanted [id number] Staff: Local Driver: Low Cerrato RN Scrub Person: Amaya Batista, SUPERVISOR BINDERY; Zoya Harris; Samantha Meadows, ROSANA Cardiac Technician: Fernandez Jarquin CSA Orientdaniel Local Driver: Aiyana Moody Indications: Patrick Rutherford is an [...] hemodynamically stable. Condition: stable Jazz Diamond Normal [facility] POCT ACTIVATED CLOTTING TIME UNSOLICITED RESULTSon 02-22-2022 POC ACTIVATED CLOTTING TIME 237 sec High 82-152 [facility] Comment on above: Performed By: #### L [id number] ####[facility] ([facility]AKER)[address] [place] [address] POC ACTIVATED CLOTTING TIME 212 sec High 82-152 [facility] Comment on above: Performed By: #### L [id number] ####[facility] ([facility]ER)[address] [place] [address] POC ACTIVATED CLOTTING TIME 122 sec Normal 82-152 [facility] Comment on above: Performed By: #### L [id number] ####[facility] ([facility])[address] [place] [address] POCT GLUCOSE METER UNSOLICIT ED RESULTSon 02-22-2022 Glucose [Mass/Vol] 129 mg/dL High 70-105 [facility] Comment on above: Result Comment: [email or web address] [email or web address] Performed By: #### L [id number] ####[facility] ([facility])[address] [place] [address] Glucose [Mass/Vol] 149 mg/dL High 70-105 [facility] Comment on above: Result Comment: [email or web address] preeti Performed By: #### L [id number] ####[facility] ([facility])[address] [place] [address] Glucose [Mass/Vol] 239 mg/dL High 70-105 [facility] Comment on above: Result Comment: [email or web address] [email or web address] Performed By: #### L [id number] ####[facility] ([facility])[address] [place] [address] APTTon 02-19-2022 ACTIVATED PARTIAL THROMBOPLASTIN TIME IN PPP BY COAGULATION ASSAY 25.4 Seconds Normal 25.0-35.0 [facility] Comment on above: Performed By: #### L [id number] ####[facility] ([facility])[address] [place] [address] BASIC METABOLIC PANELon Anion gap [Moles/Vol] 9 mmol/L Normal <=30 [facility] Comment on above: Performed By: #### L [id number] ####[facility] ([facility])[address] [place] [address] Calcium [Mass/Vol] 9.3 mg/dL Normal 8.6-10.3 [facility] Comment on above: Performed By: #### L [id number] ####[facility] ([facility])[address] [place] [address] Chloride [Moles/Vol] 106 mmol/L Normal 98-107 [facility] Comment on above: Performed By: #### L [id number] ####[facility] (BEAKER)[address] [place] [address] CO2 [Moles/Vol] 22 mmol/L Normal 21-31 [facility] Comment on above: Performed By: #### L [id number] ####[facility] ([facility] [place] [address] Creatinine [Mass/Vol] 1.16 mg/dL Normal 0.70-1.30 [facility] Comment on above: Performed By: #### L [id number] ####[facility] ([facility])[address] [facility] [address] GLOMERULAR FILTRATION RATE ML/MIN/1.73 SQ M.PREDICTED 57.9 mL/min/1.73m*2 Low >60.0 [facility] Comment on above: Result Comment: The [facility]???s estimated glomerular filtration rate (eGFR) will no [...] of individuals. Performed By: #### L [id number] ####[facility] ([facility] [address] Glucose [Mass/Vol] 253 mg/dL High 70-100 [facility] Comment on above: Performed By: #### L [id number] ####[facility] ([facility]AKER)[address] [place] [address] Potassium [Moles/Vol] 4.7 mmol/L Normal 3.5-5.1 [facility] Comment on above: Performed By: #### L [id number] ####[facility] ([facility]ER)[address] [facility] [address] Sodium [Moles/Vol] 137 mmol/L Normal 136-145 [facility] Comment on above: Performed By: #### L [id number] ####[facility] ([facility] [place] [address] Urea nitrogen [Mass/Vol] 25 mg/dL Normal 7-25 [facility] Comment on above: Performed By: #### L [id number] ####[facility] ([facility] [place] [address] UREA NITROGEN/CREATININE (MASS RATIO) IN SER/PLAS 21.55 Normal [facility] Comment on above: Performed By: #### L [id number] ####[facility] ([facility])[address] [place] [address] CBCon 02-19-2022 Erythrocyte distribution width (RBC) [Ratio] 13.9 % Normal 11.5-15.0 [facility] Comment on above: Performed By: #### L [id number] ####[facility] ([facility])[address] [place] [address] ERYTHROCYTE MEAN CORPUSCULAR HEMOGLOBIN CONCENTRATION (G/DL) BY AUTOMATED 33.1 g/dL Normal 32.0-35.0 [facility] Comment on above: Performed By: #### L [id number] ####[facility] ([facility])[address] [place] [address] Hematocrit (Bld) [Volume fraction] 34.4 % Low 39.0-55.0 [facility] Comment on above: Performed By: #### L [id number] ####[facility] ([facility] [place] [address] Hemoglobin (Bld) [Mass/Vol] 11.4 g/dL Low 13.0-17.0 [facility] Comment on above: Performed By: #### L [id number] ####[facility] (BEAKER)[address] [place] [address] MCH (RBC) [Entitic mass] 30.7 pg Normal 27.0-33.0 [facility] Comment on above: Performed By: #### L [id number] ####[facility] ([facility] [address] MCV (RBC) [Entitic vol] 92.7 fL Normal 82.0-98.0 [facility] Comment on above: Performed By: #### L [id number] ####[facility] ([facility])[address] [address] PLATELETS (10*3/UL) IN BLOOD AUTOMATED COUNT 349 10*3/uL Normal 150-400 [facility] Comment on above: Performed By: #### L [id number] ####[facility] ([facility])[address] [address] RBC (Bld) [#/Vol] 3.71 10*6/uL Low 4.20-5.70 [facility] Comment on above: Performed By: #### L [id number] ####[facility] ([facility])[address] [address] WBC (Bld) [#/Vol] 10.62 10*3/uL High 4.00-10.60 [facility] Comment on above: Performed By: #### L [id number] ####[facility] ([facility])[address] [address] MRSA/MSSA DNA NASALon 2021 MRSA DNA Negative Normal Negative, Invalid [facility] Comment on above: Performed By: #### L [id number] ####[facility] ([facility])[address] [place] [address] MSSA DNA Negative Normal Negative, Invalid [facility] Comment on above: Performed By: #### L [id number] ####[facility] ([facility])[address] [place] [address] PROTIME-INRon 02-19-2022 INR IN PPP BY COAGULATION ASSAY 1.00 Normal 0.90-1.10 [facility] Comment on above: Result Comment: ACCC P [...] CHEST 1995;108:231S-246S. Performed By: #### L [id number] ####[facility] ([facility]AKER)[address] [place] [address] PROTHROMBIN TIME (PT) IN PPP BY COAGULATION ASSAY 13.2 Seconds Normal 12.3-14.8 [facility] Comment on above: Performed By: #### L [id number] ####[facility] (AKER)[address] [place] [address] SARS-COV-2 [facility] 02-19-2022 SARS-CoV-2 (COVID-19) RNA ISABELLA+probe Ql (Unsp spec) Not detected Normal Not Detected [facility] Comment on above: Result Comment: Not detected does not preclude SARS-CoV-2 infection and should not be used as the sole basis for patient management decisions. Not detected results must be combined with clinical observations, patient history, and epidemiological information. The Aptima SARS-CoV-2 assay is a nucleic acid amplification test intended for the qualitative detection of RNA from SARS-CoV-2 isolated and purified from nasopharyngeal (ADULT CARE PROVIDER), oropharyngeal (OP), nasal swab, sputum, and bronchoalveolar lavage (BAL) specimens from patients with signs and symptoms of infection who are suspected of COVID-19. Results are for the identification of SARS-CoV-2 RNA. The SARS-CoV-2 RNA is generally detectable during the acute phase of infection. The Aptima SARS-CoV-2 Assay on the [employer] system is intended for use by laboratory personnel specifically instructed and trained in the operation of the [employer] system. The Aptima SARS-CoV-2 assay is only for use under the Food and Drug Administration Emergency Use Authorization. Testing is limited to laboratories certified under the Clinical Laboratory Improvement Amendments of 1988 (CLIA), 42 U.S.C. ???263a, to perform high complexity tests. Performed By: #### L [id number] ####[facility] (BEAKER)[address] [place] [address] TYPE AND SCREENon 02-19-2022 AB SCREEN Negative Normal [facility] Comment on above: Performed By: #### L [id number] ####[facility], ABO group Nom (Bld) A Normal [facility] Comment on above: Performed By: #### L [id number] ####[facility], RH TYPE IN BLOOD Negative Normal [facility] Comment on above: Performed By: #### L [id number] ####[facility], Orders Onlyon 02-17-2022 Orders Only [id number] Rutherford,Oral M 1940 M Date Provider Department Center 02/17/2022 JUSTIN [facility]ELICIANO [facility] Medical C No family history on file Normal [facility] Orders Onlyon 02-16-2022 Orders Only [id number] Rutherford,Oral M 1940 M Date Provider Department Center 02/16/2022 AAKASH LOBO [facility] Medical C No family history on file Normal [facility] Orders Onlyon 02-01-2022 Orders Only [id number] Rutherford,Oral M 1940 M Date Provider Department Center 02/01/2022 [facility] [place] [facility] [place] [facility] No family history on file Normal [facility] CBC AUTO DIFFon 12-28-2021 BASO # 0.1 103/ul Normal 0.0-0.1 [facility] Comment on above: Performed By: #### P OCGLUC #### [facility] [address] [address] [address] Lety Torres Basophils/100 WBC (Bld) 0.7 % Normal 0.2-2.0 [facility] Comment on above: Performed By: #### P OCGLUC #### [facility] [address] [place] [address] Dr. Lety Torres EO # 0.4 103/ul Normal 0.0-0.7 [facility] Comment on above: Performed By: #### P OCGLUC #### [facility] [address] [place] [address] Dr. Lety Torres Eosinophils/100 WBC (Bld) 4.8 % Normal 0.9-7.0 [facility] Comment on above: Performed By: #### P OCGLUC #### [facility] [address] [place] [address] Dr. Lety Torres Erythrocyte distribution width (RBC) [Ratio] 13.7 % Normal 11.0-15.0 [facility] Comment on above: Performed By: #### P OCGLUC #### [facility] [address] [place] [address] Dr. Lety Torres Hematocrit (Bld) [Volume fraction] 29.7 % Critically low 42.0-54.0 [facility] Comment on above: Performed By: #### P OCGLUC #### [facility] [address] [place] [address] Dr. Lety Torres Hemoglobin (Bld) [Mass/Vol] 9.6 g/dL Critically low 14.0-18.0 [facility] Comment on above: Performed By: #### P OCGLUC #### [facility] [address] [place] [address] Dr. Lety Torres IG # 0.11 10e3/ul Critically high 0.00-0.03 [facility] Comment on above: Performed By: #### P OCGLUC #### [facility] [address] [place] [address] Dr. Lety Torres IG % 1.3 % Critically high 0.0-0.5 [facility] Comment on above: Performed By: #### P OCGLUC #### [facility] [address] [address] [address] Lety Torres LYMPH # 2.7 103/ul Normal 1.2-3.8 [facility] Comment on above: Performed By: #### P OCGLUC #### [facility] [address] [address] [address] Lety Torres Lymphocytes/100 WBC (Bld) 32.5 % Normal 20.5-60.0 [facility] Comment on above: Performed By: #### P OCGLUC #### [facility] [address] [address] [address] Lety Torres MANUAL DIFF REQ NO Normal [facility] Comment on above: Performed By: #### P OCGLUC #### [facility] [address] [place] [address] Dr. Lety Torres MCH (RBC) [Entitic mass] 29.8 pg Normal 25.9-34.0 [facility] Comment on above: Performed By: #### P OCGLUC #### [facility] [address] [place] [address] Dr. Lety Torres MCHC (RBC) [Mass/Vol] 32.3 g/dL Normal 29.9-35.2 [facility] Comment on above: Performed By: #### P OCGLUC #### [facility] [address] [place] [address] Dr. Lety Torres MCV (RBC) [Entitic vol] 92.2 fL Normal 80.0-94.0 [facility] Comment on above: Performed By: #### P OCGLUC #### [facility] [address] [place] [address] Dr. Lety Torres MONO # 0.8 103/ul Normal 0.3-0.8 [facility] Comment on above: Performed By: #### P OCGLUC #### [facility] [address] [place] [address] Dr. Lety Torres Monocytes/100 WBC (Bld) 10.0 % Normal 1.7-12.0 [facility] Comment on above: Performed By: #### P OCGLUC #### [facility] [address] [address] [address] Lety Torres NEUT # 4.2 103/ul Normal 1.4-6.5 [facility] Comment on above: Performed By: #### P OCGLUC #### [facility] [address] [address] [address] Lety Torres Neutrophils/100 WBC (Bld) 50.7 % Normal 43.0-75.0 [facility] Comment on above: Performed By: #### P OCGLUC #### [facility] [address] [place] [address] Dr. Lety Torres Platelet mean volume (Bld) [Entitic vol] 9.7 fL Normal 9.5-13.5 [facility] Comment on above: Performed By: #### P OCGLUC #### [facility] [address] [place] [address] Dr. Lety Torres PLT 333 103/ul Normal 150-450 [facility] Comment on above: Performed By: #### P OCGLUC #### [facility] [address] [place] [address] Dr. Lety Torres RBC 3.22 106/ul Critically low 4.70-6.10 [facility] Comment on above: Performed By: #### P OCGLUC #### [facility] [address] [place] [address] Dr. Lety Torres WBC 8.3 103/ul Normal 4.0-11.0 [facility] Comment on above: Performed By: #### P OCGLUC #### [facility] [address] [place] [address] Dr. Lety Torres CULTURE BLOODon 12-28-2021 Microscopic examination of blood, culture Culture Observations: Aerobic and Anaerobic bottle positive. Culture Observations: BCID- proteus species Culture Observations: Called HERVED to Jacinta Morel in [facility] at 2014 on 12/25 Isolate 1 [...] Trimethoprim/Sulfamethoxazol e <=20 S F Normal [facility] Comment on above: Performed By: #### B [id number] #### [facility] [address] [place] [address] Dr. Lety Torres PROF 14(COMP METB)on 022 Albumin [Mass/Vol] 2.5 g/dL Critically low 3.4-5.0 [facility] Comment on above: Performed By: #### P OCGLUC #### [facility] [address] [place] [address] Dr. Lety Torres Albumin/Globulin [Mass ratio] 0.6 {ratio} Normal [facility] Comment on above: Performed By: #### P OCGLUC #### [facility] [address] [place] [address] Dr. Lety Torres ALP [Catalytic activity/Vol] 85 U/L Normal 46-116 [facility] Comment on above: Performed By: #### P OCGLUC #### [facility] [address] [place] [address] Dr. Lety Torres ALT [Catalytic activity/Vol] 65 U/L Critically high 16-63 [facility] Comment on above: Performed By: #### P OCGLUC #### [facility] [address] [place] [address] Dr. Lety Torres Anion gap [Moles/Vol] 14.4 mmol/L Normal [facility] Comment on above: Performed By: #### P OCGLUC #### [facility] [address] [place] [address] Dr. Lety Torres AST [Catalytic activity/Vol] 30 U/L Normal 15-37 [facility] Comment on above: Performed By: #### P OCGLUC #### [facility] [address] [place] [address] Dr. Lety Torres Bilirubin [Mass/Vol] 0.3 mg/dL Normal 0.2-1.0 [facility] Comment on above: Performed By: #### P OCGLUC #### [facility] [address] [address] [address] Lety Torres Calcium [Mass/Vol] 8.6 mg/dL Normal 8.5-10.1 [facility] Comment on above: Performed By: #### P OCGLUC #### [facility] [address] [address] [address] Lety Torres Chloride [Moles/Vol] 107 mmol/L Normal 98-107 [facility] Comment on above: Performed By: #### P OCGLUC #### [facility] [address] [address] [address] Lety Torres CO2 [Moles/Vol] 22.7 mmol/L Normal 21.0-32.0 [facility] Comment on above: Performed By: #### P OCGLUC #### [facility] [address] [address] [address] Lety Torres Creatinine [Mass/Vol] 1.13 mg/dL Normal 0.70-1.30 [facility] Comment on above: Performed By: #### P OCGLUC #### [facility] [address] [place] [address] Dr. Lety Torres EGFR-AF TURKS AND CAICOS ISLANDER >60 Normal >=60 [facility] Comment on above: Performed By: #### P OCGLUC #### [facility] [address] [address] [address] Lety Torres EGFR-NON AF TURKS AND CAICOS ISLANDER >60 Normal >=60 [facility] Comment on above: Performed By: #### P OCGLUC #### [facility] [address] [address] [address] Lety Torres Globulin (S) [Mass/Vol] 4.0 g/dL Normal [facility] Comment on above: Performed By: #### P OCGLUC #### [facility] [address] [address] [address] Lety Torres Glucose [Mass/Vol] 188 mg/dL Critically high 74-106 [facility] Comment on above: Performed By: #### P OCGLUC #### [facility] [address] [address] [address] Lety Torres Potassium [Moles/Vol] 4.1 mmol/L Normal 3.5-5.1 [facility] Comment on above: Performed By: #### P OCGLUC #### [facility] [address] [address] [address] Lety Torres Protein [Mass/Vol] 6.5 g/dL Normal 6.4-8.2 [facility] Comment on above: Performed By: #### P OCGLUC #### [facility] [address] [address] [address] Lety Torres Sodium [Moles/Vol] 140 mmol/L Normal 136-145 [facility] Comment on above: Performed By: #### P OCGLUC #### [facility] [address] [address] [address] Lety Torres Urea nitrogen [Mass/Vol] 20.0 mg/dL Critically high 7.0-18.0 [facility] Comment on above: Performed By: #### P OCGLUC #### [facility] [address] [place] [address] Dr. Lety Torres Urea nitrogen/Creatinine [Mass ratio] 17.7 mg/mg Normal [facility] Comment on above: Performed By: #### P OCGLUC #### [facility] [address] [address] [address] Lety Torres CBC AUTO DIFFon 12-27-2021 BASO # 0.0 103/ul Normal 0.0-0.1 [facility] Comment on above: Performed By: #### P OCGLUC #### [facility] [address] [place] [address] Dr. Lety Torres Basophils/100 WBC (Bld) 0.4 % Normal 0.2-2.0 [facility] Comment on above: Performed By: #### P OCGLUC #### [facility] [address] [place] [address] Dr. Lety Torres EO # 0.2 103/ul Normal 0.0-0.7 [facility] Comment on above: Performed By: #### P OCGLUC #### [facility] [address] [place] [address] Dr. Lety Torres Eosinophils/100 WBC (Bld) 2.5 % Normal 0.9-7.0 [facility] Comment on above: Performed By: #### P OCGLUC #### [facility] [address] [place] [address] Dr. Leyt Torres Erythrocyte distribution width (RBC) [Ratio] 14.4 % Normal 11.0-15.0 [facility] Comment on above: Performed By: #### P OCGLUC #### [facility] [address] [place] [address] Dr. Lety Torres Hematocrit (Bld) [Volume fraction] 29.7 % Critically low 42.0-54.0 [facility] Comment on above: Performed By: #### P OCGLUC #### [facility] [address] [place] [address] Dr. Lety Torres Hemoglobin (Bld) [Mass/Vol] 9.6 g/dL Critically low 14.0-18.0 [facility] Comment on above: Performed By: #### P OCGLUC #### [facility] [address] [place] [address] Dr. Lety Torres IG # 0.06 10e3/ul Critically high 0.00-0.03 [facility] Comment on above: Performed By: #### P OCGLUC #### [facility] [address] [place] [address] Dr. Lety Torres IG % 0.6 % Critically high 0.0-0.5 [facility] Comment on above: Performed By: #### P OCGLUC #### [facility] [address] [place] [address] Dr. Lety Torres LYMPH # 2.0 103/ul Normal 1.2-3.8 [facility] Comment on above: Performed By: #### P OCGLUC #### [facility] [address] [place] [address] Dr. Lety Torres Lymphocytes/100 WBC (Bld) 20.8 % Normal 20.5-60.0 [facility] Comment on above: Performed By: #### P OCGLUC #### [facility] [address] [place] [address] Dr. Lety Torres MANUAL DIFF REQ NO Normal [facility] Comment on above: Performed By: #### P OCGLUC #### [facility] [address] [place] [address] Dr. Lety Torres MCH (RBC) [Entitic mass] 30.4 pg Normal 25.9-34.0 [facility] Comment on above: Performed By: #### P OCGLUC #### [facility] [address] [place] [address] Dr. Lety Torres MCHC (RBC) [Mass/Vol] 32.3 g/dL Normal 29.9-35.2 [facility] Comment on above: Performed By: #### P OCGLUC #### [facility] [address] [place] [address] Dr. Lety Torres MCV (RBC) [Entitic vol] 94.0 fL Normal 80.0-94.0 [facility] Comment on above: Performed By: #### P OCGLUC #### [facility] [address] [place] [address] Dr. Lety Torres MONO # 0.9 103/ul Critically high 0.3-0.8 [facility] Comment on above: Performed By: #### P OCGLUC #### [facility] [address] [place] [address] Dr. Lety Torres Monocytes/100 WBC (Bld) 9.6 % Normal 1.7-12.0 [facility] Comment on above: Performed By: #### P OCGLUC #### [facility] [address] [place] [address] Dr. Lety Torres NEUT # 6.3 103/ul Normal 1.4-6.5 [facility] Comment on above: Performed By: #### P OCGLUC #### [facility] [address] [place] [address] Dr. Lety Torres Neutrophils/100 WBC (Bld) 66.1 % Normal 43.0-75.0 [facility] Comment on above: Performed By: #### P OCGLUC #### [facility] [address] [place] [address] Dr. Lety Torres Platelet mean volume (Bld) [Entitic vol] 10.1 fL Normal 9.5-13.5 [facility] Comment on above: Performed By: #### P OCGLUC #### [facility] [address] [address] [address] Lety Torres PLT 274 103/ul Normal 150-450 [facility] Comment on above: Performed By: #### P OCGLUC #### [facility] [address] [place] [address] Dr. Lety Torres RBC 3.16 106/ul Critically low 4.70-6.10 [facility] Comment on above: Performed By: #### P OCGLUC #### [facility] [address] [place] [address] Dr. Lety Torres WBC 9.5 103/ul Normal 4.0-11.0 [facility] Comment on above: Performed By: #### P OCGLUC #### [facility] [address] [place] [address] Dr. Lety Torres POINT OF CARE GLUCOSEon 12-14 Glucose [Mass/Vol] 247 mg/dL Critically high 74-106 [facility] Comment on above: Performed By: #### P OCGLUC #### [facility] [address] [place] [address] Dr. Lety Torres Glucose [Mass/Vol] 135 mg/dL Critically high 74-106 [facility] Comment on above: Performed By: #### P OCGLUC #### [facility] [address] [place] [address] Dr. Lety Torres Glucose [Mass/Vol] 124 mg/dL Critically high 74-106 [facility] Comment on above: Performed By: #### P OCGLUC #### [facility] [address] [place] [address] Dr. Lety Torres Glucose [Mass/Vol] 98 mg/dL Normal 74-106 [facility] Comment on above: Performed By: #### P OCGLUC #### [facility] [address] [address] [address] Lety Torres Glucose [Mass/Vol] 145 mg/dL Critically high 74-106 [facility] Comment on above: Performed By: #### C MP #### [facility] [address] [address] [address] Lety Torres PROF 14(COMP METB)on 022 Albumin [Mass/Vol] 2.4 g/dL Critically low 3.4-5.0 [facility] Comment on above: Performed By: #### C MP #### [facility] [address] [place] [address] Dr. Lety Torres Albumin/Globulin [Mass ratio] 0.6 {ratio} Normal [facility] Comment on above: Performed By: #### C MP #### [facility] [address] [place] [address] Dr. Lety Torres ALP [Catalytic activity/Vol] 84 U/L Normal 46-116 [facility] Comment on above: Performed By: #### C MP #### [facility] [address] [place] [address] Dr. Lety Torres ALT [Catalytic activity/Vol] 69 U/L Critically high 16-63 [facility] Comment on above: Performed By: #### C MP #### [facility] [address] [place] [address] Dr. Lety Torres Anion gap [Moles/Vol] 14.3 mmol/L Normal [facility] Comment on above: Performed By: #### C MP #### [facility] [address] [address] [address] Lety Torres AST [Catalytic activity/Vol] 49 U/L Critically high 15-37 [facility] Comment on above: Performed By: #### C MP #### [facility] [address] [place] [address] Dr. Lety Torres Bilirubin [Mass/Vol] 0.3 mg/dL Normal 0.2-1.0 [facility] Comment on above: Performed By: #### C MP #### [facility] [address] [address] [address] Lety Torres Calcium [Mass/Vol] 8.4 mg/dL Critically low 8.5-10.1 [facility] Comment on above: Performed By: #### C MP #### [facility] [address] [address] [address] Lety Torres Chloride [Moles/Vol] 109 mmol/L Critically high 98-107 [facility] Comment on above: Performed By: #### C MP #### [facility] [address] [address] [address] Lety Torres CO2 [Moles/Vol] 22.9 mmol/L Normal 21.0-32.0 [facility] Comment on above: Performed By: #### C MP #### [facility] [address] [address] [address] Lety Torres Creatinine [Mass/Vol] 1.33 mg/dL Critically high 0.70-1.30 [facility] Comment on above: Performed By: #### C MP #### [facility] [address] [address] [address] Lety Torres EGFR-AF TURKS AND CAICOS ISLANDER >60 Normal >=60 [facility] Comment on above: Performed By: #### C MP #### [facility] [address] [address] [address] Lety Torres EGFR-NON AF TURKS AND CAICOS ISLANDER 51 mL/min/1.73m2 Critically low >=60 [facility] Comment on above: Performed By: #### C MP #### [facility] [address] [address] [address] Lety Torres Globulin (S) [Mass/Vol] 3.9 g/dL Normal [facility] Comment on above: Performed By: #### C MP #### [facility] [address] [address] [address] Lety Torres Glucose [Mass/Vol] 220 mg/dL Critically high 74-106 [facility] Comment on above: Performed By: #### C MP #### [facility] [address] [address] [address] Lety Torres Potassium [Moles/Vol] 4.2 mmol/L Normal 3.5-5.1 [facility] Comment on above: Performed By: #### C MP #### [facility] [address] [address] [address] Lety Torres Protein [Mass/Vol] 6.3 g/dL Critically low 6.4-8.2 [facility] Comment on above: Performed By: #### C MP #### [facility] [address] [place] [address] Dr. Lety Torres Sodium [Moles/Vol] 142 mmol/L Normal 136-145 [facility] Comment on above: Performed By: #### C MP #### [facility] [address] [place] [address] Dr. Lety Torres Urea nitrogen [Mass/Vol] 18.0 mg/dL Normal 7.0-18.0 [facility] Comment on above: Performed By: #### C MP #### [facility] [address] [place] [address] Dr. Lety Torres Urea nitrogen/Creatinine [Mass ratio] 13.5 mg/mg Normal [facility] Comment on above: Performed By: #### C MP #### [facility] [address] [place] [address] Dr. Lety Torres CBC AUTO DIFFon 12-26-2021 BASO # 0.0 103/ul Normal 0.0-0.1 [facility] Comment on above: Performed By: #### C BC #### [facility] [address] [place] [address] Dr. Lety Torres Basophils/100 WBC (Bld) 0.2 % Normal 0.2-2.0 [facility] Comment on above: Performed By: #### C BC #### [facility] [address] [place] [address] Dr. Lety Torres EO # 0.0 103/ul Normal 0.0-0.7 [facility] Comment on above: Performed By: #### C BC #### [facility] [address] [place] [address] Dr. Lety Torres Eosinophils/100 WBC (Bld) 0.2 % Critically low 0.9-7.0 [facility] Comment on above: Performed By: #### C BC #### [facility] [address] [place] [address] Dr. Lety Torres Erythrocyte distribution width (RBC) [Ratio] 14.4 % Normal 11.0-15.0 [facility] Comment on above: Performed By: #### C BC #### [facility] [address] [place] [address] Dr. Lety Torres Hematocrit (Bld) [Volume fraction] 29.9 % Critically low 42.0-54.0 [facility] Comment on above: Performed By: #### C BC #### [facility] [address] [place] [address] Dr. Lety Torres Hemoglobin (Bld) [Mass/Vol] 9.6 g/dL Critically low 14.0-18.0 [facility] Comment on above: Performed By: #### C BC #### [facility] [address] [place] [address] Dr. Lety Torres IG # 0.11 10e3/ul Critically high 0.00-0.03 [facility] Comment on above: Performed By: #### C BC #### [facility] [address] [place] [address] Dr. Lety Torres IG % 0.7 % Critically high 0.0-0.5 [facility] Comment on above: Performed By: #### C BC #### [facility] [address] [place] [address] Dr. Lety Torres LYMPH # 2.0 103/ul Normal 1.2-3.8 [facility] Comment on above: Performed By: #### C BC #### [facility] [address] [place] [address] Dr. Lety Torres Lymphocytes/100 WBC (Bld) 12.3 % Critically low 20.5-60.0 [facility] Comment on above: Performed By: #### C BC #### [facility] [address] [place] [address] Dr. Lety Torres MANUAL DIFF REQ NO Normal [facility] Comment on above: Performed By: #### C BC #### [facility] [address] [place] [address] Dr. Lety Torres MCH (RBC) [Entitic mass] 30.1 pg Normal 25.9-34.0 [facility] Comment on above: Performed By: #### C BC #### [facility] [address] [place] [address] Dr. Lety Torres MCHC (RBC) [Mass/Vol] 32.1 g/dL Normal 29.9-35.2 [facility] Comment on above: Performed By: #### C BC #### [facility] [address] [place] [address] Dr. Lety Torres MCV (RBC) [Entitic vol] 93.7 fL Normal 80.0-94.0 [facility] Comment on above: Performed By: #### C BC #### [facility] [address] [place] [address] Dr. Lety Torres MONO # 1.5 103/ul Critically high 0.3-0.8 [facility] Comment on above: Performed By: #### C BC #### [facility] [address] [place] [address] Dr. Lety Torres Monocytes/100 WBC (Bld) 9.3 % Normal 1.7-12.0 [facility] Comment on above: Performed By: #### C BC #### [facility] [address] [place] [address] Dr. Lety Torres NEUT # 12.5 103/ul Critically high 1.4-6.5 [facility] Comment on above: Performed By: #### C BC #### [facility] [address] [place] [address] Dr. Lety Torres Neutrophils/100 WBC (Bld) 77.3 % Critically high 43.0-75.0 [facility] Comment on above: Performed By: #### C BC #### [facility] [address] [place] [address] Dr. Lety Torres Platelet mean volume (Bld) [Entitic vol] 9.5 fL Normal 9.5-13.5 [facility] Comment on above: Performed By: #### C BC #### [facility] [address] [place] [address] Dr. Lety Torres PLT 245 103/ul Normal 150-450 [facility] Comment on above: Performed By: #### C BC #### [facility] [address] [place] [address] Dr. Lety Torres RBC 3.19 106/ul Critically low 4.70-6.10 [facility] Comment on above: Performed By: #### C BC #### [facility] [address] [place] [address] Dr. Lety Torres WBC 16.2 103/ul Critically high 4.0-11.0 [facility] Comment on above: Performed By: #### C BC #### [facility] [address] [place] [address] Dr. Lety Torres BASO # 0.0 103/ul Normal 0.0-0.1 [facility] Comment on above: Performed By: #### P OCGLUC #### [facility] [address] [place] [address] Dr. Lety Torres Basophils/100 WBC (Bld) 0.3 % Normal 0.2-2.0 [facility] Comment on above: Performed By: #### P OCGLUC #### [facility] [address] [place] [address] Dr. Lety Torres EO # 0.1 103/ul Normal 0.0-0.7 [facility] Comment on above: Performed By: #### P OCGLUC #### [facility] [address] [place] [address] Dr. Lety Torres Eosinophils/100 WBC (Bld) 0.3 % Critically low 0.9-7.0 [facility] Comment on above: Performed By: #### P OCGLUC #### [facility] [address] [place] [address] Dr. Lety Torres Erythrocyte distribution width (RBC) [Ratio] 14.5 % Normal 11.0-15.0 [facility] Comment on above: Performed By: #### P OCGLUC #### [facility] [address] [place] [address] Dr. Lety Torres Hematocrit (Bld) [Volume fraction] 27.0 % Critically low 42.0-54.0 [facility] Comment on above: Performed By: #### P OCGLUC #### [facility] [address] [place] [address] Dr. Lety Torres Hemoglobin (Bld) [Mass/Vol] 9.0 g/dL Critically low 14.0-18.0 [facility] Comment on above: Performed By: #### P OCGLUC #### [facility] [address] [place] [address] Dr. Lety Torres IG # 0.10 10e3/ul Critically high 0.00-0.03 [facility] Comment on above: Performed By: #### P OCGLUC #### [facility] [address] [place] [address] Dr. Lety Torres IG % 0.7 % Critically high 0.0-0.5 [facility] Comment on above: Performed By: #### P OCGLUC #### [facility] [address] [place] [address] Dr. Lety Torres LYMPH # 2.5 103/ul Normal 1.2-3.8 [facility] Comment on above: Performed By: #### P OCGLUC #### [facility] [address] [place] [address] Dr. Lety Torres Lymphocytes/100 WBC (Bld) 16.4 % Critically low 20.5-60.0 [facility] Comment on above: Performed By: #### P OCGLUC #### [facility] [address] [place] [address] Dr. Lety Torres MANUAL DIFF REQ NO Normal [facility] Comment on above: Performed By: #### P OCGLUC #### [facility] [address] [place] [address] Dr. Lety Torres MCH (RBC) [Entitic mass] 30.9 pg Normal 25.9-34.0 [facility] Comment on above: Performed By: #### P OCGLUC #### [facility] [address] [address] [address] Lety Torres MCHC (RBC) [Mass/Vol] 33.3 g/dL Normal 29.9-35.2 [facility] Comment on above: Performed By: #### P OCGLUC #### [facility] [address] [address] [address] Lety Torres MCV (RBC) [Entitic vol] 92.8 fL Normal 80.0-94.0 [facility] Comment on above: Performed By: #### P OCGLUC #### [facility] [address] [place] [address] Dr. Lety Torres MONO # 1.3 103/ul Critically high 0.3-0.8 [facility] Comment on above: Performed By: #### P OCGLUC #### [facility] [address] [place] [address] Dr. Lety Torres Monocytes/100 WBC (Bld) 8.3 % Normal 1.7-12.0 [facility] Comment on above: Performed By: #### P OCGLUC #### [facility] [address] [place] [address] Dr. Lety Torres NEUT # 11.3 103/ul Critically high 1.4-6.5 [facility] Comment on above: Performed By: #### P OCGLUC #### [facility] [address] [place] [address] Dr. Lety Torres Neutrophils/100 WBC (Bld) 74.0 % Normal 43.0-75.0 [facility] Comment on above: Performed By: #### P OCGLUC #### [facility] [address] [place] [address] Dr. Lety Torres Platelet mean volume (Bld) [Entitic vol] 9.6 fL Normal 9.5-13.5 [facility] Comment on above: Performed By: #### P OCGLUC #### [facility] [address] [address] [address] Lety Torres PLT 232 103/ul Normal 150-450 [facility] Comment on above: Performed By: #### P OCGLUC #### [facility] [address] [address] [address] Lety Torres RBC 2.91 106/ul Critically low 4.70-6.10 [facility] Comment on above: Performed By: #### P OCGLUC #### [facility] [address] [address] [address] Lety Torres WBC 15.2 103/ul Critically high 4.0-11.0 [facility] Comment on above: Performed By: #### P OCGLUC #### [facility] [address] [address] [address] Lety Torres POINT OF CARE GLUCOSEon 12-14 Glucose [Mass/Vol] 122 mg/dL Critically high 74-106 [facility] Comment on above: Performed By: #### P OCGLUC #### [facility] [address] [place] [address] Dr. Lety Torres Glucose [Mass/Vol] 135 mg/dL Critically high 74-106 [facility] Comment on above: Performed By: #### P OCGLUC #### [facility] [address] [place] [address] Dr. Lety Torres Glucose [Mass/Vol] 282 mg/dL Critically high 74-106 [facility] Comment on above: Performed By: #### P OCGLUC #### [facility] [address] [place] [address] Dr. Lety Torres Glucose [Mass/Vol] 48 mg/dL Critically low 74-106 [facility] Comment on above: Result Comment: Will Repeat Test Performed By: #### P OCGLUC #### [facility] [address] [place] [address] Dr. Lety Torres Glucose [Mass/Vol] 85 mg/dL Normal 74-106 [facility] Comment on above: Performed By: #### P OCGLUC #### [facility] [address] [place] [address] Dr. Lety Torres Glucose [Mass/Vol] 242 mg/dL Critically high 74-106 [facility] Comment on above: Performed By: #### P OCGLUC #### [facility] [address] [place] [address] Dr. Lety Torres Glucose [Mass/Vol] 44 mg/dL Critically low 74-106 [facility] Comment on above: Result Comment: Prev iously Confirmed Performed By: #### P OCGLUC #### [facility] [address] [place] [address] Dr. Lety Torres PROF 14(COMP METB)on 022 Albumin [Mass/Vol] 2.4 g/dL Critically low 3.4-5.0 [facility] Comment on above: Performed By: #### C MP #### [facility] [address] [place] [address] Dr. Lety Torres Albumin/Globulin [Mass ratio] 0.7 {ratio} Normal [facility] Comment on above: Performed By: #### C MP #### [facility] [address] [place] [address] Dr. Lety Torres ALP [Catalytic activity/Vol] 62 U/L Normal 46-116 [facility] Comment on above: Performed By: #### C MP #### [facility] [address] [place] [address] Dr. Lety Torres ALT [Catalytic activity/Vol] 26 U/L Normal 16-63 [facility] Comment on above: Performed By: #### C MP #### [facility] [address] [place] [address] Dr. Lety Torres Anion gap [Moles/Vol] 11.5 mmol/L Normal [facility] Comment on above: Performed By: #### C MP #### [facility] [address] [place] [address] Dr. Lety Torres AST [Catalytic activity/Vol] 22 U/L Normal 15-37 [facility] Comment on above: Performed By: #### C MP #### [facility] [address] [place] [address] Dr. Lety Torres Bilirubin [Mass/Vol] 0.5 mg/dL Normal 0.2-1.0 [facility] Comment on above: Performed By: #### C MP #### [facility] [address] [address] [address] Lety Torres Calcium [Mass/Vol] 7.8 mg/dL Critically low 8.5-10.1 [facility] Comment on above: Performed By: #### C MP #### [facility] [address] [address] [address] Lety Torres Chloride [Moles/Vol] 107 mmol/L Normal 98-107 [facility] Comment on above: Performed By: #### C MP #### [facility] [address] [place] [address] Dr. Lety Torres CO2 [Moles/Vol] 23.3 mmol/L Normal 21.0-32.0 [facility] Comment on above: Performed By: #### C MP #### [facility] [address] [place] [address] Dr. Lety Torres Creatinine [Mass/Vol] 1.34 mg/dL Critically high 0.70-1.30 [facility] Comment on above: Performed By: #### C MP #### [facility] [address] [place] [address] Dr. Lety Torres EGFR-AF TURKS AND CAICOS ISLANDER >60 Normal >=60 [facility] Comment on above: Performed By: #### C MP #### [facility] [address] [place] [address] Dr. Lety Torres EGFR-NON AF TURKS AND CAICOS ISLANDER 51 mL/min/1.73m2 Critically low >=60 [facility] Comment on above: Performed By: #### C MP #### [facility] [address] [place] [address] Dr. Lety Torres Globulin (S) [Mass/Vol] 3.6 g/dL Normal [facility] Comment on above: Performed By: #### C MP #### [facility] [address] [place] [address] Dr. Lety Torres Glucose [Mass/Vol] 61 mg/dL Critically low 74-106 [facility] Comment on above: Performed By: #### C MP #### [facility] [address] [place] [address] Dr. Lety Torres Potassium [Moles/Vol] 3.8 mmol/L Normal 3.5-5.1 [facility] Comment on above: Performed By: #### C MP #### [facility] [address] [place] [address] Dr. Lety Torres Protein [Mass/Vol] 6.0 g/dL Critically low 6.4-8.2 [facility] Comment on above: Performed By: #### C MP #### [facility] [address] [place] [address] Dr. Lety Torres Sodium [Moles/Vol] 138 mmol/L Normal 136-145 [facility] Comment on above: Performed By: #### C MP #### [facility] [address] [place] [address] Dr. Lety Torres Urea nitrogen [Mass/Vol] 18.0 mg/dL Normal 7.0-18.0 [facility] Comment on above: Performed By: #### C MP #### [facility] [address] [place] [address] Dr. Lety Torres Urea nitrogen/Creatinine [Mass ratio] 13.4 mg/mg Normal [facility] Comment on above: Performed By: #### C MP #### [facility] [address] [place] [address] Dr. Lety Torres BLOOD CULTURE ID PANELon A. baumannii Not detected Normal NOT DETECTED [facility] Comment on above: Performed By: #### C MP #### [facility] [address] [place] [address] Dr. Lety Torres Performed By: #### C VDTB #### [facility] [address] [place] [address] Dr. Lety Torres Bacteriodes fragilis Not detected Normal NOT DETECTED [facility] Comment on above: Performed By: #### C MP #### [facility] [address] [place] [address] Dr. Lety Torres Performed By: #### C VDTBH #### [facility] [address] [address] [address] Lety Torres BCID CONTROLS PASSED [facility] Comment on above: Performed By: #### C MP #### [facility] [address] [address] [address] Lety Torres Performed By: #### C VDTBH #### [facility] [address] [address] [address] Lety Torres BCIDBTHD BLOOD CULTURE BOTTLE INFORMATION [facility] Comment on above: Performed By: #### C MP #### [facility] [address] [place] [address] Dr. Lety Torres Performed By: #### C VDTBH #### [facility] [address] [place] [address] Dr. Lety Torres BCIDHD1 ANTIMICROBIAL RESIST ANCE GENES [facility] Comment on above: Performed By: #### C MP #### [facility] [address] [address] [address] Lety Torres Performed By: #### C VDTBH #### [facility] [address] [place] [address] Dr. Lety Torres BCIDHD2 SEE BELOW [facility] Comment on above: Result Comment: Note : Antimicrobial resitance can occur via multiple mechanisms. A Not Detected result for the [employer] antomicrobial resistance gene assays does not indicate antimicrobial susceptibility. Subculturing is required for species identification and susceptibility testing of isolates. Performed By: #### C MP #### [facility] [address] [place] [address] Dr. Lety Torres Performed By: #### C VDTBH #### [facility] [address] [place] [address] Dr. Lety Torres BCIDHD3 Positive [facility] Comment on above: Performed By: #### C MP #### [facility] [address] [place] [address] Dr. Lety Torres Performed By: #### C VDTBH #### [facility] [address] [address] [address] Lety Torres BCIDHD4 Negative Normal [facility] Comment on above: Performed By: #### C MP #### [facility] [address] [address] [address] Lety Torres Performed By: #### C VDTBH #### [facility] [address] [address] [address] Lety Torres BCIDHD5 YEAST Normal [facility] Comment on above: Performed By: #### C MP #### [facility] [address] [place] [address] Dr. Lety Torres Performed By: #### C VDTBH #### [facility] [address] [place] [address] Dr. Lety Torres Bottle Set: Set 1 Normal [facility] Comment on above: Performed By: #### C MP #### [facility] [address] [place] [address] Dr. Lety Torres Performed By: #### C VDTBH #### [facility] [address] [place] [address] Dr. Lety Torrse Bottle: Aerobic Normal [facility] Comment on above: Performed By: #### C MP #### [facility] [address] [place] [address] Dr. Lety Torres Bottle: Anaerobic Normal [facility] Comment on above: Performed By: #### C VDTBH #### [facility] [address] [place] [address] Dr. Lety Torres C. neoformans/gattii Not detected Normal NOT DETECTED [facility] Comment on above: Performed By: #### C MP #### [facility] [address] [place] [address] Dr. Lety Torres Performed By: #### C VDTBH #### [facility] [address] [place] [address] Dr. Lety Torres Kaylah albicans Not detected Normal NOT DETECTED [facility] Comment on above: Performed By: #### C MP #### [facility] [address] [place] [address] Dr. Lety Torres Performed By: #### C VDTBH #### [facility] [address] [place] [address] Dr. Lety Torres Kaylah auris Not detected Normal NOT DETECTED [facility] Comment on above: Performed By: #### C MP #### [facility] [address] [place] [address] Dr. Lety Torres Performed By: #### C VDTBH #### [facility] [address] [place] [address] Dr. Lety Torres Kaylah glabrata Not detected Normal NOT DETECTED [facility] Comment on above: Performed By: #### C MP #### [facility] [address] [place] [address] Dr. Lety Torres Performed By: #### C VDTBH #### [facility] [address] [place] [address] Dr. Lety Torres Kaylah Krusei Not detected Normal NOT DETECTED [facility] Comment on above: Performed By: #### C MP #### [facility] [address] [place] [address] Dr. Lety Torres Performed By: #### C VDTBH #### [facility] [address] [place] [address] Dr. Lety Torres Kaylah Parapsilosis Not detected Normal NOT DETECTED [facility] Comment on above: Performed By: #### C MP #### [facility] [address] [place] [address] Dr. Lety Torres Performed By: #### C VDTBH #### [facility] [address] [place] [address] Dr. Lety Torres Kaylah Tropicalis Not detected Normal NOT DETECTED [facility] Comment on above: Performed By: #### C MP #### [facility] [address] [place] [address] Dr. Lety Torres Performed By: #### C VDTBH #### [facility] [address] [place] [address] Dr. Lety Torres CTX-M Resistant Gene Not detected Normal NOT DETECTED [facility] Comment on above: Performed By: #### C MP #### [facility] [address] [place] [address] Dr. Lety Torres Performed By: #### C VDTBH #### [facility] [address] [place] [address] Dr. Lety Torres E. Cloacae complex Not detected Normal NOT DETECTED [facility] Comment on above: Performed By: #### C MP #### [facility] [address] [place] [address] Dr. Lety Torres Performed By: #### C VDTBH #### [facility] [address] [place] [address] Dr. Lety Torres E. faecalis Not detected Normal NOT DETECTED [facility] Comment on above: Performed By: #### C MP #### [facility] [address] [place] [address] Dr. Lety Torres Performed By: #### C VDTBH #### [facility] [address] [place] [address] Dr. Lety Torres E. faecium Not detected Normal NOT DETECTED [facility] Comment on above: Performed By: #### C MP #### [facility] [address] [place] [address] Dr. Lety Torres Performed By: #### C VDTBH #### [facility] [address] [place] [address] Dr. Lety Torres Enterobacteriaceae Detected Abnormal NOT DETECTED [facility] Comment on above: Performed By: #### C MP #### [facility] [address] [place] [address] Dr. Lety Torres Performed By: #### C VDTBH #### [facility] [address] [place] [address] Dr. Lety Torres Escherichia coli Not detected Normal NOT DETECTED [facility] Comment on above: Performed By: #### C MP #### [facility] [address] [place] [address] Dr. Lety Torres Performed By: #### C VDTBH #### [facility] [address] [place] [address] Dr. Lety Torres H. influenzae Not detected Normal NOT DETECTED [facility] Comment on above: Performed By: #### C MP #### [facility] [address] [place] [address] Dr. Lety Torres Performed By: #### C VDTBH #### [facility] [address] [place] [address] Dr. Lety Torres IMP Resistant Gene Not detected Normal NOT DETECTED [facility] Comment on above: Performed By: #### C MP #### [facility] [address] [place] [address] Dr. Lety Torres Performed By: #### C VDTBH #### [facility] [address] [place] [address] Dr. Lety Torres K. oxytoca Not detected Normal NOT DETECTED [facility] Comment on above: Performed By: #### C MP #### [facility] [address] [place] [address] Dr. Lety Torres Performed By: #### C VDTBH #### [facility] [address] [place] [address] Dr. Lety Torres K. pneumoniae Not detected Normal NOT DETECTED [facility] Comment on above: Performed By: #### C MP #### [facility] [address] [place] [address] Dr. Lety Torres Performed By: #### C VDTBH #### [facility] [address] [place] [address] Dr. Lety Torres Klebsiella aerogenes Not detected Normal NOT DETECTED [facility] Comment on above: Performed By: #### C MP #### [facility] [address] [place] [address] Dr. Lety Torres Performed By: #### C VDTBH #### [facility] [address] [place] [address] Dr. Lety Torres KPC Resistant Gene Not detected Normal NOT DETECTED [facility] Comment on above: Performed By: #### C MP #### [facility] [address] [place] [address] Dr. Lety Trores Performed By: #### C VDTBH #### [facility] [address] [place] [address] Dr. Lety Torres List. monocytogenes Not detected Normal NOT DETECTED [facility] Comment on above: Performed By: #### C MP #### [facility] [address] [place] [address] Dr. Lety Torres Performed By: #### C VDTBH #### [facility] [address] [place] [address] Dr. Lety Torres Mcr-1 Resistant Gene Not detected Normal NOT DETECTED [facility] Comment on above: Performed By: #### C MP #### [facility] [address] [place] [address] Dr. Lety Torres Performed By: #### C VDTBH #### [facility] [address] [place] [address] Dr. Lety Torres mecA/C Not detected Normal NOT DETECTED [facility] Comment on above: Performed By: #### C MP #### [facility] [address] [place] [address] Dr. Lety Torres Performed By: #### C VDTBH #### [facility] [address] [place] [address] Dr. Lety Torres mecA/C MREJ Not detected Normal NOT DETECTED [facility] Comment on above: Performed By: #### C MP #### [facility] [address] [place] [address] Dr. Lety Torres Performed By: #### C VDTBH #### [facility] [address] [place] [address] Dr. Lety Torres N. meningitidis Not detected Normal NOT DETECTED [facility] Comment on above: Performed By: #### C MP #### [facility] [address] [place] [address] Dr. Lety Torres Performed By: #### C VDTBH #### [facility] [address] [place] [address] Dr. Lety Torres NDM Resistant Gene Not detected Normal NOT DETECTED [facility] Comment on above: Performed By: #### C MP #### [facility] [address] [place] [address] Dr. Lety Torres Performed By: #### C VDTBH #### [facility] [address] [place] [address] Dr. Lety Torres Oxa-48-like Not detected Normal NOT DETECTED [facility] Comment on above: Performed By: #### C MP #### [facility] [address] [place] [address] Dr. Lety Torres Performed By: #### C VDTBH #### [facility] [address] [place] [address] Dr. Lety Torres Proteus Detected Abnormal NOT DETECTED [facility] Comment on above: Performed By: #### C MP #### [facility] [address] [place] [address] Dr. Lety Torres Performed By: #### C VDTBH #### [facility] [address] [place] [address] Dr. Lety Torres Pseud. aeruginosa Not detected Normal NOT DETECTED [facility] Comment on above: Performed By: #### C MP #### [facility] [address] [place] [address] Dr. Lety Torres Performed By: #### C VDTBH #### [facility] [address] [place] [address] Dr. Lety Torres S. maltophilia Not detected Normal NOT DETECTED [facility] Comment on above: Performed By: #### C MP #### [facility] [address] [place] [address] Dr. Lety Torres Performed By: #### C VDTBH #### [facility] [address] [place] [address] Dr. Lety Torres Salmonella Not detected Normal NOT DETECTED [facility] Comment on above: Performed By: #### C MP #### [facility] [address] [place] [address] Dr. Lety Torres Performed By: #### C VDTBH #### [facility] [address] [place] [address] Dr. Lety Torres Seratia marcescens Not detected Normal NOT DETECTED [facility] Comment on above: Performed By: #### C MP #### [facility] [address] [place] [address] Dr. Lety Torres Performed By: #### C VDTBH #### [facility] [address] [place] [address] Dr. Lety Torres Site: left ac Normal [facility] Comment on above: Performed By: #### C MP #### [facility] [address] [place] [address] Dr. Lety Torres Performed By: #### C VDTBH #### [facility] [address] [place] [address] Dr. Lety Torres Staph. aureus Not detected Normal NOT DETECTED [facility] Comment on above: Performed By: #### C MP #### [facility] [address] [place] [address] Dr. Lety Torres Performed By: #### C VDTBH #### [facility] [address] [place] [address] Dr. Lety Torres Staph. epidermidis Not detected Normal NOT DETECTED [facility] Comment on above: Performed By: #### C MP #### [facility] [address] [place] [address] Dr. Lety Torres Performed By: #### C VDTBH #### [facility] [address] [place] [address] Dr. Lety Torres Staph. lugdunensis Not detected Normal NOT DETECTED [facility] Comment on above: Performed By: #### C MP #### [facility] [address] [place] [address] Dr. Lety Torres Performed By: #### C VDTBH #### [facility] [address] [place] [address] Dr. Lety Torres Staphylococcus Not detected Normal NOT DETECTED [facility] Comment on above: Performed By: #### C MP #### [facility] [address] [place] [address] Dr. Lety Torres Performed By: #### C VDTBH #### [facility] [address] [place] [address] Dr. Lety Torres Strep. agalactiae Not detected Normal NOT DETECTED [facility] Comment on above: Performed By: #### C MP #### [facility] [address] [place] [address] Dr. Lety Torres Performed By: #### C VDTBH #### [facility] [address] [place] [address] Dr. Lety Torres Strep. pneumoniae Not detected Normal NOT DETECTED [facility] Comment on above: Performed By: #### C MP #### [facility] [address] [place] [address] Dr. Lety Torres Performed By: #### C VDTBH #### [facility] [address] [place] [address] Dr. Lety Torres Strep. pyogenes Not detected Normal NOT DETECTED [facility] Comment on above: Performed By: #### C MP #### [facility] [address] [place] [address] Dr. Lety Torres Performed By: #### C VDTBH #### [facility] [address] [place] [address] Dr. Lety Torres Streptococcus Not detected Normal NOT DETECTED [facility] Comment on above: Performed By: #### C MP #### [facility] [address] [place] [address] Dr. Lety Torres Performed By: #### C VDTBH #### [facility] [address] [place] [address] Dr. Lety Torres Dede/B Resist. Gene Not detected Normal NOT DETECTED [facility] Comment on above: Performed By: #### C MP #### [facility] [address] [place] [address] Dr. Lety Torres Performed By: #### C VDTBH #### [facility] [address] [place] [address] Dr. Lety Torres VIM Resistant Gene Not detected Normal NOT DETECTED [facility] Comment on above: Performed By: #### C MP #### [facility] [address] [place] [address] Dr. Lety Torres Performed By: #### C VDTBH #### [facility] [address] [place] [address] Dr. Lety Torres CBC AUTO DIFFon 12-25-2021 BASO # 0.0 103/ul Normal 0.0-0.1 [facility] Comment on above: Performed By: #### P OCGLUC #### [facility] [address] [place] [address] Dr. Lety Torres Basophils/100 WBC (Bld) 0.3 % Normal 0.2-2.0 [facility] Comment on above: Performed By: #### P OCGLUC #### [facility] [address] [place] [address] Dr. Lety Torres EO # 0.0 103/ul Normal 0.0-0.7 [facility] Comment on above: Performed By: #### P OCGLUC #### [facility] [address] [place] [address] Dr. Lety Torres Eosinophils/100 WBC (Bld) 0.1 % Critically low 0.9-7.0 [facility] Comment on above: Performed By: #### P OCGLUC #### [facility] [address] [place] [address] Dr. Lety Torres Erythrocyte distribution width (RBC) [Ratio] 13.8 % Normal 11.0-15.0 [facility] Comment on above: Performed By: #### P OCGLUC #### [facility] [address] [place] [address] Dr. Lety Torres Hematocrit (Bld) [Volume fraction] 50.5 % Normal 42.0-54.0 [facility] Comment on above: Performed By: #### P OCGLUC #### [facility] [address] [place] [address] Dr. Lety Torres Hemoglobin (Bld) [Mass/Vol] 16.8 g/dL Normal 14.0-18.0 [facility] Comment on above: Performed By: #### P OCGLUC #### [facility] [address] [place] [address] Dr. Lety Torres IG # 0.04 10e3/ul Critically high 0.00-0.03 [facility] Comment on above: Performed By: #### P OCGLUC #### [facility] [address] [place] [address] Dr. Lety Torres IG % 0.6 % Critically high 0.0-0.5 [facility] Comment on above: Performed By: #### P OCGLUC #### [facility] [address] [place] [address] Dr. Lety Torres LYMPH # 0.4 103/ul Critically low 1.2-3.8 [facility] Comment on above: Performed By: #### P OCGLUC #### [facility] [address] [place] [address] Dr. Lety Torres Lymphocytes/100 WBC (Bld) 5.8 % Critically low 20.5-60.0 [facility] Comment on above: Performed By: #### P OCGLUC #### [facility] [address] [place] [address] Dr. Lety Torres MANUAL DIFF REQ NO Normal [facility] Comment on above: Performed By: #### P OCGLUC #### [facility] [address] [place] [address] Dr. Lety Torres MCH (RBC) [Entitic mass] 30.3 pg Normal 25.9-34.0 [facility] Comment on above: Performed By: #### P OCGLUC #### [facility] [address] [place] [address] Dr. Lety Torres MCHC (RBC) [Mass/Vol] 33.3 g/dL Normal 29.9-35.2 [facility] Comment on above: Performed By: #### P OCGLUC #### [facility] [address] [place] [address] Dr. Lety Torres MCV (RBC) [Entitic vol] 91.0 fL Normal 80.0-94.0 [facility] Comment on above: Performed By: #### P OCGLUC #### [facility] [address] [place] [address] Dr. Lety Torres MONO # 0.1 103/ul Critically low 0.3-0.8 [facility] Comment on above: Performed By: #### P OCGLUC #### [facility] [address] [place] [address] Dr. Lety Torres Monocytes/100 WBC (Bld) 1.0 % Critically low 1.7-12.0 [facility] Comment on above: Performed By: #### P OCGLUC #### [facility] [address] [place] [address] Dr. Lety Torres NEUT # 6.5 103/ul Normal 1.4-6.5 [facility] Comment on above: Performed By: #### P OCGLUC #### [facility] [address] [place] [address] Dr. Lety Torres Neutrophils/100 WBC (Bld) 92.2 % Critically high 43.0-75.0 [facility] Comment on above: Performed By: #### P OCGLUC #### [facility] [address] [place] [address] Dr. Lety Torres Platelet mean volume (Bld) [Entitic vol] 9.5 fL Normal 9.5-13.5 [facility] Comment on above: Performed By: #### P OCGLUC #### [facility] [address] [place] [address] Dr. Lety Torres PLT 186 103/ul Normal 150-450 [facility] Comment on above: Performed By: #### P OCGLUC #### [facility] [address] [place] [address] Dr. Lety Torres RBC 5.55 106/ul Normal 4.70-6.10 [facility] Comment on above: Performed By: #### P OCGLUC #### [facility] [address] [place] [address] Dr. Lety Torres WBC 7.0 103/ul Normal 4.0-11.0 [facility] Comment on above: Performed By: #### P OCGLUC #### [facility] [address] [place] [address] Dr. Lety Torres CULTURE BLOODon 12-25-2021 Microscopic examination of blood, culture Culture Observations: NO GROWTH AT 5 DAYS. Normal [facility] Comment on above: Performed By: #### C MP #### [facility] [address] [place] [address] Dr. Lety Torres CULTURE URINEon 12-25-2021 CULTURE URINE Culture Observations : No growth Normal [facility] Comment on above: Performed By: #### C MP #### [facility] [address] [place] [address] Dr. Lety Torres Covid-19 PCR (CVDTB)on 12-14 SARS-CoV-2 (COVID-19) RNA ISABELLA+probe Ql (Unsp spec) Not detected Normal NOT DETECTED [facility] Comment on above: Result Comment: When [...] for this test is supported by the Compliance Clerk of Health and Human Service's declaration that [...] used). Performed By: #### C VDTBH #### [facility] [address] [place] [address] Dr. Lety Torres ER URINE PROFILEon 2 Bilirubin Ql (U) Negative Normal NEGATIVE [facility] Comment on above: Performed By: #### C MP #### [facility] [address] [place], [place] [id number] Dr. Lety Torres Clarity (U) SL CLOUDY Abnormal CLEAR [facility] Comment on above: Performed By: #### C MP #### [facility] [address] [place] [address] Dr. Lety Torres Color (U) LT. YELLOW Normal YELLOW [facility] Comment on above: Performed By: #### C MP #### [facility] [address] [place] [address] Dr. Lety SIERRA A micrscopic examina tion will be performed if indicated. Normal [facility] Comment on above: Performed By: #### C MP #### [facility] [address] [place] [address] Dr. Lety Torres Glucose Ql (U) Negative Normal NEGATIVE [facility] Comment on above: Performed By: #### C MP #### [facility] [address] [place] [address] Dr. Lety Torres Hemoglobin Ql (U) SMALL Abnormal NEGATIVE [facility] Comment on above: Performed By: #### C MP #### [facility] [address] [place] [address] Dr. Lety Torres Ketones Ql (U) Negative Normal NEGATIVE [facility] Comment on above: Performed By: #### C MP #### [facility] [address] [place] [address] Dr. Lety Torres LEUKOCYTES SMALL Abnormal NEGATIVE [facility] Comment on above: Performed By: #### C MP #### [facility] [address] [place] [address] Dr. Lety Torres Nitrite Ql (U) Positive Abnormal NEGATIVE [facility] Comment on above: Performed By: #### C MP #### [facility] [address] [place] [address] Dr. Lety Torres pH (U) 6.0 [pH] Normal 5-9 [facility] Comment on above: Performed By: #### C MP #### [facility] [address] [place] [address] Dr. Lety Torres SPEC GRAVITY 1.020 Normal 1.005-<=1. 025 [facility] Comment on above: Performed By: #### C MP #### [facility] [address] [place] [address] Dr. Lety Torres UA PROTEIN TRACE Normal NEGATIVE/ TRACE [facility] Comment on above: Performed By: #### C MP #### [facility] [address] [address] [address] Lety Torres UR MICRO IND INDICATED Normal [facility] Comment on above: Performed By: #### C MP #### [facility] [address] [place] [address] Dr. Lety Torres Urobilinogen Qn (U) 0.2 {Curt'U}/dL Normal 0.2 - 1. 0 [facility] Comment on above: Performed By: #### C MP #### [facility] [address] [place] [address] Dr. Lety Torres LACTATE/LACTIC ACIDon 2021 Lactate [Moles/Vol] 1.8 mmol/L Normal 0.4-1.9 [facility] Comment on above: Performed By: #### L ACT #### [facility] [address] [place] [address] Dr. Lety Torres Lactate [Moles/Vol] 2.5 mmol/L Critically high 0.4-1.9 [facility] Comment on above: Performed By: #### C MP #### [facility] [address] [place] [address] Dr. Lety Torres POINT OF CARE GLUCOSEon 12-14 Glucose [Mass/Vol] 83 mg/dL Normal 74-106 [facility] Comment on above: Performed By: #### P OCGLUC #### [facility] [address] [place] [address] Dr. Lety Torres Glucose [Mass/Vol] 45 mg/dL Critically low 74-106 [facility] Comment on above: Result Comment: Resu lt Not Confirmed Performed By: #### P OCGLUC #### [facility] [address] [place] [address] Dr. Lety Torres Glucose [Mass/Vol] 44 mg/dL Critically low 74-106 [facility] Comment on above: Result Comment: Will Repeat Test Performed By: #### P OCGLUC #### [facility] [address] [place] [address] Dr. Lety Torres Glucose [Mass/Vol] 81 mg/dL Normal 74-106 [facility] Comment on above: Performed By: #### C MP #### [facility] [address] [address] [address] Lety Torres Glucose [Mass/Vol] 146 mg/dL Critically high 74-106 [facility] Comment on above: Performed By: #### P OCGLUC #### [facility] [address] [place] [address] Dr. Lety Torres Glucose [Mass/Vol] 213 mg/dL Critically high 74-106 [facility] Comment on above: Performed By: #### P OCGLUC #### [facility] [address] [place] [address] Dr. Lety Torres PROF 14(COMP METB)on 022 Albumin [Mass/Vol] 3.8 g/dL Normal 3.4-5.0 [facility] Comment on above: Performed By: #### P OCGLUC #### [facility] [address] [place] [address] Dr. Lety Torres Albumin/Globulin [Mass ratio] 0.9 {ratio} Normal [facility] Comment on above: Performed By: #### P OCGLUC #### [facility] [address] [place] [address] Dr. Lety Torres ALP [Catalytic activity/Vol] 96 U/L Normal 46-116 [facility] Comment on above: Performed By: #### P OCGLUC #### [facility] [address] [place] [address] Dr. Lety Torres ALT [Catalytic activity/Vol] 22 U/L Normal 16-63 [facility] Comment on above: Performed By: #### P OCGLUC #### [facility] [address] [place] [address] Dr. Lety Torres Anion gap [Moles/Vol] 16.7 mmol/L Normal [facility] Comment on above: Performed By: #### P OCGLUC #### [facility] [address] [place] [address] Dr. Lety Torres AST [Catalytic activity/Vol] 16 U/L Normal 15-37 [facility] Comment on above: Performed By: #### P OCGLUC #### [facility] [address] [address] [address] Lety Torres Bilirubin [Mass/Vol] 1.3 mg/dL Critically high 0.2-1.0 [facility] Comment on above: Performed By: #### P OCGLUC #### [facility] [address] [address] [address] Lety Torres Calcium [Mass/Vol] 9.3 mg/dL Normal 8.5-10.1 [facility] Comment on above: Performed By: #### P OCGLUC #### [facility] [address] [place] [address] Dr. Lety Torres Chloride [Moles/Vol] 102 mmol/L Normal 98-107 [facility] Comment on above: Performed By: #### P OCGLUC #### [facility] [address] [place] [address] Dr. Lety Torres CO2 [Moles/Vol] 21.8 mmol/L Normal 21.0-32.0 [facility] Comment on above: Performed By: #### P OCGLUC #### [facility] [address] [place] [address] Dr. Lety Torres Creatinine [Mass/Vol] 1.52 mg/dL Critically high 0.70-1.30 [facility] Comment on above: Performed By: #### P OCGLUC #### [facility] [address] [address] [address] Lety Torres EGFR-AF TURKS AND CAICOS ISLANDER 53 mL/min/1.73m2 Critically low >=60 [facility] Comment on above: Performed By: #### P OCGLUC #### [facility] [address] [place] [address] Dr. Lety Torres EGFR-NON AF TURKS AND CAICOS ISLANDER 44 mL/min/1.73m2 Critically low >=60 [facility] Comment on above: Performed By: #### P OCGLUC #### [facility] [address] [place] [address] Dr. Lety Torres Globulin (S) [Mass/Vol] 4.2 g/dL Normal [facility] Comment on above: Performed By: #### P OCGLUC #### [facility] [address] [address] [address] Lety Torres Glucose [Mass/Vol] 208 mg/dL Critically high 74-106 [facility] Comment on above: Performed By: #### P OCGLUC #### [facility] [address] [address] [address] Lety Torres Potassium [Moles/Vol] 4.5 mmol/L Normal 3.5-5.1 [facility] Comment on above: Performed By: #### P OCGLUC #### [facility] [address] [place] [address] Dr. Lety Torres Protein [Mass/Vol] 8.0 g/dL Normal 6.4-8.2 [facility] Comment on above: Performed By: #### P OCGLUC #### [facility] [address] [place] [address] Dr. Lety Torres Sodium [Moles/Vol] 136 mmol/L Normal 136-145 [facility] Comment on above: Performed By: #### P OCGLUC #### [facility] [address] [place] [address] Dr. Lety Torres Urea nitrogen [Mass/Vol] 21.0 mg/dL Critically high 7.0-18.0 [facility] Comment on above: Performed By: #### P OCGLUC #### [facility] [address] [address] [address] Lety Torres Urea nitrogen/Creatinine [Mass ratio] 13.8 mg/mg Normal [facility] Comment on above: Performed By: #### P OCGLUC #### [facility] [address] [place] [address] Dr. Lety Torres URINE MICROSCOPIC ONLYon BACTERIA TRACE Abnormal NONE SEEN [facility] Comment on above: Performed By: #### C MP #### [facility] [address] [place] [address] Dr. Lety Torres Bacteria identified Cx Nom (U) INDICATED Normal [facility] Comment on above: Performed By: #### C MP #### [facility] [address] [place] [address] Dr. Lety Torres CAST NONE SEEN Normal NONE SEEN [facility] Comment on above: Performed By: #### C MP #### [facility] [address] [place] [address] Dr. Lety Torres Crystals LM Nom (Urine sed) NONE SEEN Normal NONE SEEN [facility] Comment on above: Performed By: #### C MP #### [facility] [address] [place] [address] Dr. Lety Torres Epithelial cells LM Ql (Urine sed) RARE Normal NONE SEEN /RARE [facility] Comment on above: Performed By: #### C MP #### [facility] [address] [place] [address] Dr. Lety Torres MUCOUS NONE SEEN Normal NONE SEEN [facility] Comment on above: Performed By: #### C MP #### [facility] [address] [place] [address] Dr. Lety Torres RBC NONE SEEN Abnormal 0-2 [facility] Comment on above: Performed By: #### C MP #### [facility] [address] [place] [address] Dr. Lety Torres WBC 5-10 Abnormal NONE SEEN [facility] Comment on above: Performed By: #### C MP #### [facility] [address] [place] [address] Dr. Lety Torres YEAST PRESENT Abnormal NONE SEEN [facility] Comment on above: Performed By: #### C MP #### [facility] [address] [place] [address] Dr. Lety Torres XR CHEST 1 Von [...] GREGORY ELIZABETH Date: 2021-12-25 02:15 Normal [facility] PROF CHEM 8 (BAS METB)on Anion gap [Moles/Vol] 16.5 mmol/L Normal [facility] Comment on above: Performed By: #### B MP #### [facility] [address] [address] [address] Lety Torres Calcium [Mass/Vol] 8.9 mg/dL Normal 8.5-10.1 [facility] Comment on above: Performed By: #### B MP #### [facility] [address] [address] [address] Lety Torres Chloride [Moles/Vol] 108 mmol/L Critically high 98-107 [facility] Comment on above: Performed By: #### B MP #### [facility] [address] [address] [address] Lety Torres CO2 [Moles/Vol] 21.2 mmol/L Normal 21.0-32.0 [facility] Comment on above: Performed By: #### B MP #### [facility] [address] [address] [address] Lety Torres Creatinine [Mass/Vol] 1.32 mg/dL Critically high 0.70-1.30 [facility] Comment on above: Performed By: #### B MP #### [facility] [address] [address] [address] Lety Torres EGFR-AF TURKS AND CAICOS ISLANDER >60 Normal >=60 [facility] Comment on above: Performed By: #### B MP #### [facility] [address] [address] [address] Lety Torres EGFR-NON AF TURKS AND CAICOS ISLANDER 52 mL/min/1.73m2 Critically low >=60 [facility] Comment on above: Performed By: #### B MP #### [facility] [address] [address] [address] Lety Torres Glucose [Mass/Vol] 260 mg/dL Critically high 74-106 [facility] Comment on above: Performed By: #### B MP #### [facility] [address] [address] [address] Lety Torres Potassium [Moles/Vol] 4.7 mmol/L Normal 3.5-5.1 [facility] Comment on above: Performed By: #### B MP #### [facility] [address] [address] [address] Lety Torres Sodium [Moles/Vol] 141 mmol/L Normal 136-145 [facility] Comment on above: Performed By: #### B MP #### [facility] [address] [address] [address] Lety Torrse Urea nitrogen [Mass/Vol] 23.0 mg/dL Critically high 7.0-18.0 [facility] Comment on above: Performed By: #### B MP #### [facility] [address] [address] [address] Lety Torres Urea nitrogen/Creatinine [Mass ratio] 17.4 mg/mg Normal [facility] Comment on above: Performed By: #### B MP #### [facility] [address] [address] [address] Lety Torres CTA HEADon 11-02-2021 CTA HEAD [facility] Department of Radiology [address] [place] [id number] Patient Name: PATRICK RUTHERFORD : 1940 Sex: M Age: Race: White Pt. Location: [facility] Patient Status: O Ordered Date: 09/11/2021 11:40:00 AM Completed Date: 11/02/2021 03:40 PM Requesting Provider: TRIPP KENNY Attending Provider: TRIPP KENNY Report Copy To: SHREYAS ADAME Signs & Symptoms: I65.23 Occlusion and stenosis of bilateral carotid arteries I10 History: Zakiya DM? on metformin? kidney dis? Will have labs done at [facility] Comments: Exam: CTA HEAD CTA HEAD [...] stenosis. Electronically signed: Ernesto Villasenor. Transcribed by: [email or web address], User Resident: ERNESTO VILLASENOR Electronically Signed by: ERNESTO VILLASENOR @ 11/02/2021 04:25 PM I personally read this/these film(s) with this resident Normal [facility] CTA NECKon 11-02-2021 CTA NECK [facility] Department of Radiology [address] [place] [address] Patient Name: PATRICK RUTHERFORD : [...] DM - will have labs done at [facility] Comments: Exam: CTA NECK CTA NECK [...] viewed on a separate workstation. The [place] Symptomatic Carotid Endarterectomy Trial (NASCET) method for [...] achievable Electronically signed: Ernesto Villasenor. Transcribed by: [email or web address], User Resident: ERNESTO VILLASENOR Electronically Signed by: ERNESTO VILLASENOR @ 11/02/2021 04:32 PM I personally read this/these film(s) with this resident Normal The [facility] CREATININEon 10-15-2021 Creatinine [Mass/Vol] 1.25 mg/dL Normal 0.70-1.30 [facility] Comment on above: Performed By: #### P OCGLUC #### [facility] [address] [address] [address] Lety Torres EGFR-AF TURKS AND CAICOS ISLANDER >60 Normal >=60 [facility] Comment on above: Performed By: #### P OCGLUC #### [facility] [address] [place], [place] [address] Dr. Lety Torres EGFR-NON AF TURKS AND CAICOS ISLANDER 55 mL/min/1.73m2 Critically low >=60 [facility] Comment on above: Performed By: #### P OCGLUC #### [facility] [address] [place], [place] [address] Dr. Lety Torres Vital Signs Date Time Vital Sign Value Performing Clinician Facility 01-12-2023 14:15-0400 Body height 167.64 cm Imad Asaad Other [facility] Other 01-12-2023 14:15-0400 Body mass index (BMI) [Ratio] 26.55 kg/m2 Imad Asaad [facility] Other 01-12-2023 14:15-0400 Body weight 74.62 kg Imad Asaad Other [employer] Other 01-12-2023 14:15-0400 Diastolic blood pressure 52 mm[Hg] Imad Asaad Other [employer] Other 01-12-2023 14:15-0400 Systolic blood pressure 105 mm[Hg] Imad Asaad Other [employer] Other 09-22-2022 14:24-0400 Blood Pressure Location [facility] 09-22-2022 14:24-0400 Diastolic blood pressure 70 mm[Hg] [facility] 09-22-2022 14:24-0400 Heart rate 72 /min [facility] 09-22-2022 14:24-0400 Respiratory rate 16 /min [facility] 09-22-2022 14:24-0400 Systolic blood pressure 156 mm[Hg] [facility] 06-09-2022 15:10-0500 Blood Pressure Location SAMANTHA CASTRO [facility] 06-09-2022 15:10-0500 Diastolic blood pressure 74 mm[Hg] SAMANTHA CASTRO [facility] 06-09-2022 15:10-0500 Heart rate 68 /min SAMANTHA CASTRO [facility] 06-09-2022 15:10-0500 Respiratory rate 16 /min SAMANTHA CASTRO [facility] 06-09-2022 15:10-0500 Systolic blood pressure 138 mm[Hg] SAMANTHA CASTRO [facility] 12-22-2021 15:10-0400 Blood Pressure Location Ted CEJA [facility] 12-22-2021 15:10-0400 Diastolic blood pressure 88 mm[Hg] Ted CEJA [facility] 12-22-2021 15:10-0400 Heart rate 86 /min Ted CEJA [facility] 12-22-2021 15:10-0400 Systolic blood pressure 179 mm[Hg] Ted CEJA [facility] 11-27-2021 10:25-0400 Blood Pressure Location Ted CEJA [facility] 11-27-2021 10:25-0400 Diastolic blood pressure 67 mm[Hg] Ted CEJA [facility] 11-27-2021 10:25-0400 Heart rate 71 /min Ted CEJA [facility] 11-27-2021 10:25-0400 Respiratory rate 16 /min Ted CEJA [facility] 11-27-2021 10:25-0400 Systolic blood pressure 139 mm[Hg] Ted CEJA [facility] Encounters Encounter Date Encounter Type Care Provider Facility Start: 06-20-2023 ambulatory Ted Boylei ty:[facility] Start: 01-31-2023 End: 01-31-2023 ambulatory Imad Asaad Other [employer] Other Start: 01-31-2023 Telephone encounter Imad Asaad [facility] Start: 01-18-2023 End: 01-18-2023 ambulatory Imad Asaad Facility:[facility] Start: 01-18-2023 End: 01-18-2023 ambulatory MD Shreyas Adame Work Phone: [facility] Work Phone: Start: 01-18-2023 End: 01-18-2023 Patient encounter procedure MD Shreyas Adame Work Phone: [facility] [place] Work Phone: Start: 01-16-2023 End: 01-16-2023 ambulatory MD Shreyas Adame Work Phone: [facility] Work Phone: Start: 01-16-2023 End: 01-16-2023 Patient encounter procedure MD Shreyas Adame Work Phone: [facility] [place] Work Phone: Start: 01-12-2023 End: 01-12-2023 Patient encounter procedure MD Shreyas Adame Work Phone: [facility] Work Phone: Start: 01-12-2023 End: 01-12-2023 ambulatory MD Shreyas Adame Work Phone: [facility] Work Phone: Start: 01-12-2023 Office outpatient ne w 45 minutes Imad Asaad [facility] Start: 12-13-2022 End: 12-14-2022 ambulatory Ted CEJA Facility: [facility] Start: 10-06-2022 End: 10-07-2022 ambulatory Tevin PURDY Facility: [facility] Start: 09-29-2022 End: 09-30-[address] TEVIN PURDY . Facility: Start: 09-22-2022 End: 09-23-2022 ambulatory Tevin PURDY Facility: [facility] Start: 09-22-2022 End: 09-22-2022 Patient encounter procedure Tevin PURDY General Surgery [facility] Start: 09-06-2022 ambulatory Tevin PURDY Facility : [facility] Start: 06-09-2022 End: 06-10-2022 ambulatory SAMANTHA CASTRO Facility:[facility] Start: 06-09-2022 End: 06-09-2022 Patient encounter procedure SAMANTHA CASTRO [facility] Start: 06-02-2022 ambulatory SAMANTHA CASTRO Facili ty:[facility] Start: 03-29-2022 End: 03-30-2022 ambulatory [facility] Start: 03-08-2022 ambulatory [facility] Start: 03-01-2022 ambulatory Ted CEJA Facili ty:[facility] Start: 02-23-2022 Evaluation and management of inpatient [facility] Start: 02-23-2022 Evaluation and management of inpatient [facility] Start: 02-22-2022 End: 02-24-2022 Evaluation and management of inpatient [facility] Start: 02-19-2022 End: 02-19-2022 ambulatory [facility] Start: 02-19-2022 End: 02-19-2022 Encounter for other preprocedural examination [facility] Start: 02-01-2022 Encounter for other preprocedural examination [facility] Start: 01-13-[address] SHREYAS ADAME . Facili ty:[facility] Start: 12-25-2021 End: 12-28-[address] SHREYAS AADME . Facility: Start: 12-22-2021 End: 12-22-2021 Patient encounter procedure Ted CEJA [facility] Start: 11-27-2021 End: 11-27-2021 Patient encounter procedure Ted CEJA [facility] Start: 11-25-2021 ambulatory SHREYAS ADAME Facility:[facility] Start: 11-23-2021 End: 11-24-[address] FRANCIE ARREGUIN Facility: Start: 11-02-2021 End: 11-03-2021 ambulatory SHREYAS ADAME Facility:[facility] Start: 10-15-2021 End: 10-16-[address] SHREYAS ADAME . Facility: Start: 10-06-2021 End: 10-06-2021 Patient encounter procedure SAMANTHA CASTRO [facility] Start: 07-07-2021 End: 07-08-2021 ambulatory SHREYAS ADAME Facility:[facility] Procedures Date Procedure Procedure Detail Performing Clinician Start: 12-22-2021 Cystoscopy Ted LANDIS Bypass of stomach Ted LANDIS Carotid endarterectomy Jeramy PURDY Coronary artery bypa ss graft SAMANTHA CASTRO Cystoscopy SAMANTHA CASTRO Comment on above: 2007 Endarterectomy SAMANTHA Tesfaye Placement of stent SAMANTHA CASTRO Replacement of aortic valve SAMANTHA CASTRO Plan of Treatment Date Care Activity Detail Author Start: 01-18-2023 Stool culture Stool Culture [facility] Start: 01-16-2023 Ova and Parasite Concentrate Exam Ova and Parasite Concentrate Exam [facility] Bacteria identified in Stool by Culture [facility] Calprotectin [Mass/m ass] in Stool [facility] Elastase.pancreatic [Mass/mass] in Stool [facility] Ova and parasites identified in Unspecified specimen by Light microscopy [facility] Immunizations Immunization Date Immunization Notes Care Provider Elier stahl 05-12-2021 influenza virus vaccine, unspecified formulation SAMANTHA CASTRO [facility] 05-12-2021 SARS-CoV-2 (COVID-19 ) mRNA-1273 vaccine SAMANTHA CASTRO [facility] 11-11-2020 SARS-CoV-2 (COVID-19 ) mRNA BNT-162b2 vax SAMANTHA CASTRO [facility] 10-20-2020 SARS-CoV-2 (COVID-19 ) mRNA BNT-162s0 vax SAMANTHA CASTRO [facility] 02-25-2020 influenza virus vaccine, unspecified formulation SAMANTHA MICHAEL [facility] 03-10-2017 influenza virus vaccine, unspecified formulation SAMANTHA MICHAEL [facility] 02-19-2016 influenza virus vaccine, unspecified formulation SAMANTHA MICHAEL [facility] 02-19-2009 influenza, whole SAMANTHA BLAIR RRY [facility] Payers Date Payer Category Payer Self-pay 2016 Unknown [id number] 1959 Medicare [id number] 1959 Self-pay [id number] 1959 Unknown [id number] 1938 Unknown [id number] 2.16.840.1.232063.3.579.2.647 1938 Unknown [id number] 2.16.840.1.416307.3.579.2.647 1938 Unknown [id number] 2.16.840.1.323019.3.579.2.647 1938 Unknown [id number] 2.16.840.1.784791.3.579.2.593 1938 Unknown [id number] 2.16.840.1.158944.3.579.2.593 1938 Unknown [id number] 2.16.840.1.899738.3.579.2.593 1938 Unknown [id number] 2.16.840.1.885605.3.579.2.593 1938 Unknown [id number] 2.16.840.1.367024.3.579.2.593 1938 Unknown [id number] 2.16.840.1.351033.3.579.2.727 1938 Unknown [id number] 2.16.840.1.594310.3.579.2.727 1938 Unknown [id number] 2.16.840.1.689289.3.579.2.727 1938 Unknown [id number] 2.16.840.1.214843.3.579.2.72 1938 Unknown [id number] 2.16.840.1.867483.3.579.2.72 1938 Unknown [id number] 2.16.840.1.503968.3.579.2. 1938 Unknown [id number] 2.16.840.1.446753.3.579.2. 1938 Unknown [id number] 2.16.840.1.742904.3.579.2. 1938 Unknown [id number] 2.16.840.1.776451.3.579.2.727 Private Health Insurance [employer] [facility] M [id number] 00 Unknown [id number] 2.16.840.1.722240.3.579.2.531 Unknown [id number] 2.16840.1.857255.3.579.2.531 Unknown [id number] 2.16840.1.511646.3.579.2.531 Social History Date Type Detail Facility Tobacco smoking status [facility] Sex Assigned At Male [facility] Start: 11-27-2021 End: 09-22-2022 Tobacco smoking status Ex-smoker (finding) [facility] Tobacco smoking status Never [facility] Start: 1940 Sex Assigned At Male F [facility] Functional Status Date Assessment Result Facility 09-22-2022 Functional Status N/A [facility]o [facility] 06-09-2022 Functional Status N/A [facility] 12-22-2021 Functional Status N/A [facility] 11-27-2021 Functional Status N/A [facility] Clinical Notes 09-08-2021 to 01-12-2023 Note Date & Type Note Facility 01-12-2023 Evaluation note Encounter Date Diagnosis Assessment Notes Dec, Fecal incontinence (ICD-10 - R15.9) Dec, Constipation, unspecified constipation type (ICD-10 - K59.00) [employer] Other 05-10-2023 NoteChief Complaint consultation for loose [...] stenosis Spinal stenosis o (more content not included)...[facility] Comment on above:Result Comment: Electronically Signed By: GURWINDER LUU, Tevin Leiva\Date and Time Signed: 09/22/22 15:44 [id number] Hospital Discharge instructions Patient Education 06/09/2022 15:29:32 Prostatitis, Acxy-fg-Ctql Prostatitis Prostatitis is swelling of the prostate gland. The prostate helps to make semen. It is below a man's bladder, in front of the rectum. There are different types of prostatitis. Follow these instructions at home: Take igah-eeq-qvqfgqv and prescription medicines only as told by [...] 10/31/2012 Document Revised: 04/14/2018 Document Reviewed: 01/20/2017 Ku6 Patient Education 2020 Basic6. 06/09/2022 15:29:30 Benign Prostatic Hyperplasia Benign Prostatic [...] urethra. Follow these instructions at home: Take axen-qnh-woddiea and prescription medicines only as told by [...] Document Reviewed: 06/06/2017 Elsevier Patient Education 2020 Basic6. Follow Up Care 06/03/2022 09:55:30 With:MICHAEL MOROCHO, SAMANTHA Diego, URL Address: [address] [place] [address] When:Within 6 Month(s) [facility] 11-14-2022 NoteSubjective Patient ID: Patrick Rutherford [...] the past 36 hour(s)). No follow-ups on file.[facility]10-24-2022 Note Subjective Patient ID: Patrick Rutherford is [...] the past 36 hour(s)). No follow-ups on file.[facility]10-12-2022 NotePatient [facility] 6[facility] tonight. Spoke with the patient and his granddaughter about the discharge time. [facility]10-12-2022 [facility] has accepted.[facility]10-12-2022 [facility] accepting. Sent therapy notes. Patient has received the covid vaccine but not the boosters.[facility]10-12-2022 Note02/24/22 1421 Time Calculation Start Time 1145 Stop Time 1205 Time Calculation (min) 20 min PT Evaluation Time Entry PT Evaluation (Moderate) Time Entry 20 Discharge recommendations: SNF [facility] Krish is a 81 y.o. male Right carotid stenosis presented today to undergo TCA 02/22. 02/24/22 1145 PT Last Visit PT Received On 02/24/22 General Subjective Generator Technician notes BLE tremor and truncal tremor w/ standing, and mild to moderate gait ataxia. Patient states this has occurred for about a year. Has not discussed w/ MD. States occurs at home as well as during hospital stay. Generator Technician suggests pt see neurologist d/t Parkinsonian symptoms. [...] Layout One level Prior Function Level of [place] Independent with ADLs and functional transfers (ambulates w/ cane) Homemaking Assistance Needs assistance (Patient's son has caregivers for physical care; staff also manages engine maintenance mechanic including cooking. prepares light meals w/o cooking) [...] Frequency (5x/wk and PRN) PT Discharge Recommendations USP facility placement PT - OK to Discharge Yes Antonia Torre PT, MPT [facility]-24-2022 NoteOccupational Therapy Occupational Therapy Evaluation Patient Name: Patrick Rutherford Today's Date: 02/24/2022 Time In: 1145 Time Out: 1205 OT Discharge Recommendations: USP facility placement General Visit Information: General Subjective: Pt pleasant and cooperative. Pt [place] and requires repitition during communication. Pt typically [...] Lives With: Spouse, Son (Son is handicapped. Maintenance Director/POWER ELECTRONICS RESEARCH ENGINEER provides assistance to son and completes household tasks and IADLs.) Home Adaptive Equipment: Cane, Walker rolling Home Layout: One level Home Access: Ramped entrance Bathroom Shower/Tub: Walk-in shower Bathroom Toilet: Handicapped height Bathroom Equipment: None Prior Level of Function Prior Function ADL Assistance: Independent Homemaking Assistance: Needs assistance (Maintenance Director/POWER ELECTRONICS RESEARCH ENGINEER provides assistance with household tasks: cleaning, cooking, [...] all the time H (more content not included)...[facility]10-12-2022 NoteMet with the patient. He lives with his and son in a one story home with no steps to enter. He has a cane. He is active with [employer]. Called his family member Dina with his approval. She would like for him to try for [facility], [facility] and [place] at discharge. Sent referrals to all listed. 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 Pertinent Physical Exam [...] Center 03/08/2022 2:30 PM EDELMIRA Teague [facility] [place] [facility] 03/17/2022 10:00 AM Nichelle Mathew NP [facility] Test Results Pending At Discharge None Completed by ALLEN Beverly (more content not included)...[facility]10-11-20[facility]UnTri[facility] DAILY PROGRESS NOTE Subjective [...] Resident, PGY-2 I can be reached via [employer] [phone] [facility]10-11-2022 NotePt taken to room per transport, WARREN Koch receiving pt updated on event prior to sending pt to roomUnGreen Cross Hospital10-11-2022 NoteEkg completed, vascular notified of left bundle branch block on test, ok to sent pt to room 5140 at this time, no s/sx distress noted with pt.[facility]10-11-2022 NotePt c/o chest pressure/heart rate feeling slow, vs wnl, notified vascular, at bedside, will place orders for ekg/trop. Pt w/o s/sx distress notedUnGreen Cross Hospital10-11-2022 NoteSpoke with Ashley with vascular update given on mag level of 1.4, will place orders for replacementUnGreen Cross Hospital10-11-2022 NotePatient asymptomaticUnGreen Cross Hospital10-11-2022 NoteEDELMIRA Luna notified of new scant blood noted to dressing, no new orders at this time, will continue to monitorUnGreen Cross Hospital10-10-2022 Note Patient: Patrick Rutherford Procedure Summary Date: 02/22/22 Room / Location: [address] / [facility] Operating Room Anesthesia Start: 1527 Anesthesia Stop: [...] events for this encounter. Lizz Larsen MD Director Of Customer Service PGY-2 02/22/2022 5:42 PMSelect Medical [facility]10-10-2022 NoteArterial Line: Date/Time: 02/22/2022 3:55 PM An [...] procedure well with no complications. Staffing Performed: resident/LAUNCH ENGINEER/CAA Resident/LAUNCH ENGINEER: Lizz Larsen MDSelect Medical [facility]10-10-2022 NoteAirway Date/Time: 02/22/2022 3:38 PM Urgency: elective Airway not difficult General Information and Staff Patient location during procedure: OR Anesthesiologist: Kwabena Meza MD Resident/LAUNCH ENGINEER/CAA: Lizz Larsen MD Performed: resident/LAUNCH ENGINEER/CAA and other anesthesia staff Indications and Patient [...] Additional Comments Arslan Calderón, Randal student performed intubationSelect Medical [facility]10-10-2022 NotePatient: Oral M Rutherford Procedure Information Date/Time: 02/22/22 1445 Procedure: Right Transcarotid Artery Revascularization vs Right Carotid Endarterectomy (Right) Location: [facility] OR [address] [place] [address] / [facility] Operating Room Surgeons: Jazz Diamond MD Relevant [...] with resident and medical student. Additional Equipment RequestsSelect Medical [facility]08-09-2022 Hospital Discharge instructions Patient Education 12/22/2021 15:22:24 [...] urethra. Follow these instructions at home: Take hiha-slo-rmzukns and prescription medicines only as told by [...] 05/02/2006 Document Revised: 03/27/2019 Document Reviewed: 06/06/2017 Ku6 Patient Education 2020 Basic6. Follow Up Care 12/09/2021 11:45:24 With:BRENNA LUU, ABRIL Bernal Address: [facility] [address] , [place] [address]- When:Within 3 Month(s) [facility] 07-15-2022 Hospital Discharge instructions Patient Education 11/27/2021 [...] alcohol may irritate the prostate. Medicines Take hkfe-wry-asrjgkc and prescription medicines only as told by [...] 01/28/2005 Document Revised: 04/14/2018 Document Reviewed: 02/16/2018 Ku6 Patient Education 2020 [employer] Inc[employer] Follow Up Care 10/26/2021 11:31:21 With:BRENNA LUU, Ted Echavarria, URL Address: [address] [place] [address] [place] [address]- When: Unknown [facility] 04-26-2022 Hospital Discharge instructions Follow Up Care 09/08/2021 15:16:10 With:SAMANTHA CASTRO PA-C, URL Address: [address] [place] [address] When: Unknown [facility] Evaluation + Plan note No data available for this section [facility] Evaluation + Plan note Future Appointments Appointment Date:03/01/2022 01:15:00 PM Scheduled Provider:Ted CEJA MD Location:[facility] Appointment Type:URO Office Visit [facility] Evaluation + Plan note Future Appointments Appointment Date:12/13/2022 03:00:00 PM Scheduled Provider:Ted CEJA MD Location:[facility] Appointment Type:URO Office Visit [facility] evaluation noteNo assessment information available [facility] Work Phone: Evaluation noteNo InformationNortSelect Specialty Hospital - [facility] Other Hisemzp general Narrative - Reported* Type Description Date Medical History Diabetes Medical History HTN (hypertension) Medical History Hypercholesteremia Medical History Enlarged prostate Medical History Hypothyroid Surgical History C Artery Surgical History heart stent Surgical History carotid see Surgical History Stent x 1 Heart Surgical History Stent x 1 neck Surgical History triple bypass 08/2016 Hospitalization History see above [place] [employer] Other Hospital Discharge instructions No data available for this section General Surgery [facility] note No data available for this section [facility] Summary Purpose Family History No Family [...] and content) DATE CREATED AUTHOR 12/01/2021 [facility] DATE CREATED AUTHOR AUTHOR'S ORGANIZ ATION 04/09/2022 [facility] DATE CREATED AUTHOR AUTHOR'S ORGANIZ ATION 09/29/2022 [facility] DATE CREATED AUTHOR AUTHOR'S ORGANIZ ATION 01/20/2023 [facility] DATE CREATED AUTHOR AUTHOR'S ORGANIZ ATION 02/05/2023 [facility] REASON FOR VISIT (unrecogniz ed section and [...] BE BASED ON THE PRIMARY CLINICAL RECORDS. [employer] [facility]. provides no warranty or guarantee of the accuracy or completeness of information in this document.
[2023-05-28 12:18] LABS: Occult Blood Positive
== END 2023-05-27 23:22 | disposition home or self-care (01) ==
LOC: LAB 23:21
PROVIDERS: PCP Family Medicine; Visit Provider Family Medicine
DX: I10 Essential (primary) hypertension (principal)
CPT/HCPCS: G0328

== ENCOUNTER 2023-12-14 15:08 | Outpatient (OUT) | payer MEDICARE, BC, SELFPAY ==
--- OUTSIDE RECORDS SUMMARY | 2023-12-14 15:14 | XMS_ITS | CCD ---
Author Organization [facility] CliniSyct Care Team Providers Care General [address] Production Manager Name Role Phone Veronica Adame Primary Care Physician [phone] VERONICA ADAME Primary Care Unavailable NAZZAL, MUNIER Admitting Unavailable NANEERAJAL, MUNIER Attending Unavailable VERONICA ADAME Referring Unavailable VERONICA ADAME Referring Unavailable LANIE MATAMOROS Admitting Unavailable LANIE MATAMOROS Attending Unavailable VERONICA ADAME Primary Care Unavailable VERONICA ADAME Primary Care Unavailable TRIPP KENNY Admitting Unavailable TRIPP KENNY Attending Unavailable VERONICA ADAME Referring Unavailable NAZZAL, MUNIER Referring Unavailable NAZZAL, MUNIER Referring Unavailable NAZZAL, MUNIER Referring Unavailable THALIA KENNYEN Attending Unavailable NAZZAL, MUNIER Attending Unavailable NAZZAL, MUNIER Referring Unavailable SFAELOS, TRIPP Referring Unavailable GUILLEOS TRIPP Attending Unavailable NAZZAL, MUNIER Admitting Unavailable NAZZAL, MUNIER Attending Unavailable DEEP Clement, DR MARTIN Primary Care Unavailable CEJA ., DR MCKOY Admitting Unavailable CEJA ., DR MCKOY Attending Unavailable HOY ., DR MARTIN Primary Care Unavailable HOBrien ., DR MARTIN Attending Unavailable HOBrien ., DR MARTIN Admitting Unavailable BOOGIE, DR PARADISE Echavarria Consulting Unavailable HOY ., DR MARTIN Consulting Unavailable CLARAGREGORY JARAMILLO Consulting Unavailable BRADLEY, MICHEL Consulting Unavailable NILL ., DR ABARCA Admitting Unavailable DEEP .DR MARTIN Primary Care Unavailable NILL ., DR ABARCA Consulting Unavailable NILL ., DR ABARCA Attending Unavailable RIMMA OLIVAREZ Consulting Unavailable ELTAHAWY, DR MARMOLEJO Admitting Unavailable ELTAHAWY, DR MARMOLEJO Consulting Unavailable LEXYTABRIDGET, DR MARMOLEJO Attending Unavailable DEEP .DR MARTIN Primary Care Unavailable HOBrien ., DR MARTIN Primary Care Unavailable MISC, DR MARY Admitting Unavailable MISC, DR MARY Consulting Unavailable MISC, DR MARY Attending Unavailable Asaad, Imad Unavailable MD Veronica Adame Primary Care Provider [phone] MD Lamin Thomason Attending Provider Asaad, Imad Admitting Unavailable Asaad, Imad Attending Unavailable Veronica Adame Primary Care Unavailable Asaad, Imad Admitting Unavailable Asaad, Imad Attending Unavailable Veronica Adame Primary Care Unavailable Asaad, Imad Admitting Unavailable Asaad, Imad Attending Unavailable Veronica Adame Primary Care Unavailable NILL, Tevin R Attending Unavailable CEJA, Ted R Attending Unavailable CEJA, Ted R Attending Unavailable CEJA, Ted R Attending Unavailable NILL, Tevin R Attending Unavailable NILL, Tevin R Attending Unavailable NILL, Tevin Echavarria Attending Unavailable Veronica Adame Unavailable Allergies Allergy Classification Reported Allergen(s) Allergy Type Date of Onset Reaction(s) Facility (1 source) 36433,00; Translations: [64802,00] Propensity to adverse reactions (disorder) [facility] Repository (1 source) No Known Medication Allergies; Translations: [No Known Medication Allergies] Propensity to adverse reactions (disorder) [facility] Repository Medications Current Medications Medication Drug Class(es) Dates Sig (Normalized) Sig (Original) amLODIPine 10 mg oral tablet (2 sources) Dihydropyridine Calcium Channel Gerry take 1 tablet by mouth every twenty-four hours amLODIPine Besylate 10 MG 1 tablet Orally Once a day Active amylase 889892 unt / lipase 67341 unt / protease [id number] unt delayed release oral capsule (1 source) Start: 01-31-2023 Creon [id number] UNIT 2 CAPSULES WITH MEALS. 1 WITH SNACKS Orally 5 TIMES DAILY (ALLOW FOR 3 MEALS AND 2 SNACKS. for 30 days Jan, Active ASA (2 sources) ASA 1 tab Oral *please review for potential _update for e-prescription and drug interaction check* Active aspirin 81 mg delayed release oral tablet (8 sources) Platelet Aggregation Inhibitor, Nonsteroidal Anti-inflammatory Drug [...] day Active atorvastatin 40 mg oral tablet (8 sources) HMG-CoA Reductase Inhibitor Start: 02-01-2019 take 1 tablet by mouth once daily atorvastatin 40 mg Tab 40 mg = 1 tab(s), Oral, Daily Start Date: 02/01/19 Status: Ordered bifidobacterium infantis 4 mg oral capsule (2 sources) Start: 01-12-2023 Align - as directed Orally once daily for 30 days Dec, Active carvedilol 25 mg oral tablet (7 sources) alpha-Adrenergic Gerry, beta-Adrenergic Gerry Start: 11-27-2021 [...] Status: Ordered clopidogrel 75 mg oral tablet (8 sources) P2Y12 Platelet Inhibitor Start: 02-01-2019 take [...] BID, # 28 cap(s), Refills(s) 0, Pharmacy: [address], 168, cm, 11/27/21 10:35:00 EDT, Height/Length Dosing, 78, kg, 11/27/21 10:35:00 EDT, Weight Dosing Start Date: 11/27/21 Status: Ordered dutasteride 0.5 mg oral capsule (5 sources) 5-alpha Reductase Inhibitor Start: 02-21-2023 take 1 capsule by mouth once daily dutasteride 0.5 mg Cap 0.5 mg = 1 cap(s), Oral, Daily, # 90 cap(s), Refills(s) 3, Pharmacy: [facility], 167.6, cm, 09/22/22 14:29:00 EDT, Height/Length Dosing, 77.3, kg, 12/13/22 15:47:00 EDT, Weight Dosing Start Date: 02/21/23 Status: Ordered Start: 11-27-2021 take 1 capsule by mo [facility] once daily dutasteride 0.5 mg Cap 0.5 mg = 1 cap(s), Oral, Daily, # 90 cap(s), Refills(s) 3, Pharmacy: [facility], 168, cm, 11/27/21 10:35:00 EDT, Height/Length Dosing, 78, kg, 11/27/21 10:35:00 EDT, Weight Dosing Start Date: 11/27/21 Status: Ordered glimepiride 4 mg oral tablet (8 sources) Sulfonylurea Start: 02-01-2019 take 2 tablets by mouth once daily glimepiride 4 mg Tab 8 mg = 2 tab(s), Oral, Daily Start Date: 02/01/19 Status: Ordered Start: 02-01-2019 take 1 tablet by [facility] once daily glimepiride 4 mg Tab 4 mg = 1 tab(s), Oral, Daily Start Date: 02/01/19 Status: Ordered hydrALAZINE hydrochloride 100 mg oral tablet (2 sources) Arteriolar Vasodilator take 1 tablet by mouth every twelve hours hydrALAZINE HCl 100 MG 1 tablet Orally Twice a day Active hydrOXYzine hydrochloride 25 mg oral tablet (3 sources) Antihistamine Start: 12-14-19 take 1 mg by mouth four times daily hydrOXYzine hydrochloride 25 mg Tab mg tab(s), Oral, QID, Refills(s) 0 Start Date: 12/13/22 Status: Ordered hydrOXYzine HCl 25 MG/ML as directed Intramuscular Active levothyroxine sodium 0.075 mg oral tablet (4 sources) l-Thyroxine Start: 09-17-2022 take 1 tablet by mouth once daily levothyroxine 75 mcg (0.075 mg) Tab 75 mcg = 1 tab(s), Oral, Daily, Refills(s) 0 Start Date: 09/17/22 Status: Ordered take 1 tablet by olvin th once daily in the morning Synthroid 50 MCG 1 tablet on an empty stomach in the morning Orally Once a day Active lisinopril 10 mg oral tablet (8 sources) Angiotensin Converting Enzyme Inhibitor Start: 09-17-2022 [...] pantoprazole 40 mg extended release oral tablet (8 sources) Proton Pump Inhibitor Start: 02-01-2019 take [...] Status: Ordered SITagliptin 100 mg oral tablet (7 sources) Dipeptidyl Peptidase 4 Inhibitor Start: 11-27-2021 [...] Ordered tamsulosin hydrochloride 0.4 mg oral capsule (8 sources) alpha-Adrenergic Gerry Start: 12-13-2022 End: 12-08-2023 take 1 capsule by mouth twice daily tamsulosin 0.4 mg Cap 0.4 mg = 1 cap(s), Oral, BID, X 90 day(s), # 180 cap(s), Refills(s) 3, Pharmacy: [facility] 167.6, cm, 09/22/22 14:29:00 EDT, Height/Length Dosing, 77.3, kg, 12/13/22 15:47:00 EDT, Weight Dosing Start Date: 12/13/22 Stop Date: 12/08/23 Status: Ordered Start: 02-01-2019 [facility] 1 capsule by [facility] daily tamsulosin 0.4 mg Cap 0.4 mg = 1 cap(s), Oral, Daily Start Date: 02/01/19 Status: Ordered Thyroxine Sodium Pentahydrat e (4 sources) Start: 02-01-2019 Thyroxine Sodi um Pentahydrate See Instructions, Refills(s) 0 Start Date: 02/01/19 Status: Ordered Vitox (4 sources) Start: 02-01-2019 Vitox See Inst ructions, Refill(s) 0 Start Date: 9/19/19 Status: Ordered Problems Active Problems Problem Classification Problem Date Documented Da te Episodic/Chronic Acquired foot deformities (2 sources) Acquired hallux malleus; Translations: [Other hammer toe(s) (acquired), unspecified foot] Chronic Anxiety disorders (2 sources) Anxiety 09-17-2022 Chronic Coronary atherosclerosis and other heart disease (6 sources) Coronary arteriosclerosis; Translations: [Coronary atherosclerosis] 09-17-2022 Chronic Deficiency and other anemia (1 source) Anemia due to chronic blood loss; Translations: [Iron deficiency anemia secondary to blood loss (chronic)] Onset: 09-22-2022 Chronic Deficiency and other anemia (2 sources) Anemia due to blood loss 09-22-2022 Chronic Diabetes mellitus with complications (5 sources) Diabetic peripheral neuropathy; Translations: [Type 2 diabetes mellitus with hyperglycemia] Onset: 01-05-2022 09-17-2022 Chronic Diabetes mellitus without complication (6 sources) Diabetes mellitus 02-01-2019 Chronic Disorders of lipid metabolism (3 sources) Hypertriglyceridemia ; Translations: [Pure hypercholesterolemia , unspecified] Onset: 01-05-2022 09-17-2022 Chronic Essential hypertension (7 sources) Hypertensive disorder; Translations: [Essential (primary) hypertension] Onset: 01-05-2022 02-01-2019 Chronic Genitourinary symptoms and ill-defined conditions (18 sources) Dysuria; Translations: [Dysuria] Onset: 10-06-2021 Episodic Heart valve disorders (4 sources) Aortic valve regurgitation; Translations: [Mitral valve regurgitation] 09-17-2022 Chronic Hyperplasia of prostate (15 sources) Benign prostatic hypertrophy with outflow obstruction; Translations: [Benign prostatic hyperplasia with lower urinary tract symptoms] Onset: 11-27-2021 02-01-2019 Chronic Inflammatory conditions of male genital organs (10 sources) Chronic prostatitis; Translations: [Chronic prostatitis] Onset: 11-27-2021 02-01-2019 Chronic Occlusion or stenosis of precerebral arteries (10 sources) Occlusion and stenosis of bilateral carotid arteries; Translations: [Occlusion and stenosis of right carotid artery] Onset: 10-15-2021 Chronic Other and ill-defined heart disease (2 sources) Ventricular hypertrophy 09-17-2022 Chronic Other and ill-defined heart disease (4 sources) Heart disease, unspecified; Translations: [HEART DISEASE UNSPECIFIED] Onset: 11-23-2021 Chronic Other circulatory disease (2 sources) History of transient ischemic attack 09-17-2022 Episodic Other diseases of kidney and ureters (1 source) Urinary tract obstruction; Translations: [Other obstructive and reflux uropathy] Onset: 06-09-2022 Episodic Other gastrointestinal disorders (3 sources) Irritable bowel syndrome 09-17-2022 Chronic Other gastrointestinal disorders (3 sources) Altered bowel function; Translations: [Change in bowel habit] Onset: 09-22-2022 Episodic Other gastrointestinal disorders (5 sources) Incontinence of feces; Translations: [Full incontinence of feces] Onset: 09-22-2022 Episodic Other gastrointestinal disorders (5 sources) Diarrhea; Translations: [Diarrhea, unspecified] Onset: 09-22-2022 Episodic Other gastrointestinal disorders (2 sources) Constipation; Translations: [Constipation, unspecified] Episodic Other gastrointestinal disorders (1 source) Full incontinence of feces Episodic Other gastrointestinal disorders (2 sources) Constipation, unspecified; Translations: [Constipation, unspecified] Onset: 01-18-2023 Episodic Other gastrointestinal disorders (1 source) Rectal tenesmus 10-26-2022 Episodic Other nervous system disorders (2 sources) Other acute postprocedural pain; Translations: [Other acute postprocedural pain] Onset: 02-22-2022 Episodic Other nutritional; endocrine; and metabolic disorders (1 source) Abnormal weight loss; Translations: [Abnormal weight loss] Onset: 09-22-2022 Episodic Other nutritional; endocrine; and metabolic disorders (2 sources) Overweight in adulthood with body mass index of 25 or more but less than 30 09-22-2022 Episodic Other nutritional; endocrine; and metabolic disorders (2 sources) Weight loss 09-22-2022 Episodic Other screening for suspected conditions (not mental disorders or infectious disease) (6 sources) Raised prostate specific antigen 02-01-2019 Episodic Peripheral and visceral atherosclerosis (2 sources) Peripheral vascular disease 09-17-2022 Chronic Pulmonary heart disease (2 sources) Pulmonary hypertension 09-17-2022 Chronic Screening and history of mental health and substance abuse codes (6 sources) Ex-smoker 02-01-2019 Episodic Spondylosis; intervertebral disc disorders; other back problems (2 sources) Spinal stenosis of lumbar region 09-17-2022 Episodic Thyroid disorders (2 sources) Hypothyroidism 09-17-2022 Chronic Unclassified (6 sources) Drug therapy finding 02-01-2019 Unclassified (2 sources) Severe aortic valve stenosis 09-17-2022 Unclassified (1 [...] source) Dehydration; Translations: [DEHYDRATION] Onset: 01-05-2022 Episodic Malaise and fatigue (4 sources) Weakness; Translations: [WEAKNESS] Onset: 12-25-2021 Episodic Noninfectious gastroenteritis (1 source) Noninfective gastroenteritis and colitis, unspecified; Translations: [NONINFECTIVE GE AND COLITIS UNS] Onset: 01-05-2022 Episodic Other aftercare (1 source) 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; Translations: [APPARATUS ENGINEERING TECHNOLOGIST CURRENT USE OF ASPIRIN] Onset: 01-05-2022 Episodic Other aftercare (1 source) prison (current) use of oral hypoglycemic drugs; Translations: [[facility] USE ORAL HYPOGLYCEMIC DX] Onset: 01-05-2022 Episodic Other aftercare (1 source) termite helper (current) use of 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/antip latelets; Translations: [APPARATUS ENGINEERING TECHNOLOGIST ANTITHROMBOT/ANTIPLAT LETS] Onset: 01-05-2022 Episodic Other aftercare (1 source) Other superintendent container terminal (current) drug therapy; Translations: [OTH APPARATUS ENGINEERING TECHNOLOGIST CURRENT DRUG THERAPY] Onset: 01-05-2022 Episodic Other [...] Test Name Value Interpretation Reference Range Facility Ambulatory Visit Summaryon 0 06-20-2023 Ambulatory Visit Summary PATRICK RUTHERFORD :1940 Visit Date:06/20/2023 Ambulatory Visit Instructions Your Diagnosis BPH with urinary obstruction Chronic prostatitis Your Care Team Attending Physician - Ted CEJA MD Primary Care Physician - Veronica Adame MD This Is Your Medications List dutasteride (dutasteride 0.5 mg Cap) tamsulosin (tamsulosin 0.4 mg Cap) Contact prescribing physician if questions or concerns aspirin (aspirin 81 mg Oral EC Tab) atorvastatin (atorvastatin 40 mg Tab) carvedilol (carvedilol 25 mg Tab) clopidogrel glimepiride (glimepiride 4 mg Tab) hydrOXYzine (hydrOXYzine hydrochloride 25 mg Tab) levothyroxine (levothyroxine 75 mcg (0.075 mg) Tab) lisinopril (lisinopril 10 mg Tab) pantoprazole (pantoprazole 40 mg Oral EC Tab) sitagliptin (Januvia 100 mg Tab) Procedures Performed Colonoscopy (09/29/2022), EGD - Esophagogastroduodenoscopy (09/29/2022), Cystoscopy (12/22/2021), AVR - Aortic valve replacement, CABG - Coronary artery bypass graft, Carotid endarterectomy, Cystoscopy, Endarterectomy, Stent placement, Stent placement. Discharge Vitals Heart Rate (Peripheral) 62 Respiratory Rate 16 Blood Pressure 117/68 Height 170 cm Height 67 in Weight 63 kg Weight 138.6 lb BMI 21.8 What to do next Scheduled Follow-Up Appointments Tuesday 3:00 PM EST With: Ted CEJA MD Where: [facility] Patient Educationon 06-20-19 Patient Education Urology Benign Prostatic Hyperplasia Benign prostatic hyperplasia (BPH) is an enlarged prostate gland that is caused by the normal aging process. The prostate may get bigger as a man gets older. The condition is not caused by cancer. The prostate is a walnut-sized gland that is involved in the production of semen. It is located in front of the rectum and below the bladder. The bladder stores urine. The urethra carries stored urine out of the body. An enlarged prostate can press on the urethra. This can make it harder to pass urine. The buildup of urine in the bladder can cause infection. Back pressure and infection may progress to bladder damage and kidney (renal) failure. What are the causes? This condition is part of the normal aging process. However, not all men develop problems from this condition. If the prostate enlarges away from the urethra, urine flow will not be blocked. If it enlarges toward the urethra and compresses it, there will be problems passing urine. What increases the risk? This condition is more likely to develop in men older than 50 years. What are the signs or [...] of the penis. This removes the blockage. ? Transurethral incision (TUIP). In this procedure, small cuts are made in the prostate. This lessens the prostate's pressure on the urethra. ? Transurethral microwave thermotherapy (TUMT). This procedure uses microwaves to create heat. The heat destroys and removes a small amount of prostate tissue. ? Transurethral needle ablation (TUNA). This procedure uses radio frequencies to destroy and remove a small amount of prostate tissue. ? Interstitial laser coagulation (ILC). This procedure uses a laser to destroy and remove a small amount of prostate tissue. ? Transurethral electrovaporization (TUVP). This procedure uses electrodes to destroy and remove a small amount of prostate tissue. ? Prostatic urethral lift. This procedure inserts an implant to push the lobes of the prostate away from the urethra. Follow these instructions at home: ? Take uxtk-bln-nfnnuch and prescription medicines only as told by your health care provider. ? Monitor your symptoms for any changes. Contact your health care provider with any changes. ? Avoid drinking large amounts of liquid before going to bed or out in public. ? Avoid or reduce how much caffeine or alcohol you drink. ? Give yourself time when you urinate. ? Keep all follow-up visits. This is important. Contact a health care provider if: ? You have unexplained back pain. ? Your symptoms do not get better with treatment. ? You develop side effects from the medicine (more content not included)... Normal [facility] Urology Office/Clinic Noteon 06-20-2023 Urology Office/Clinic Note Chief Complaint BPH with urinary obstruction HPI Staff 6 month f/u. Dx: BPH with urinary obstruction, chronic prostatitis and incomplete bladder emptying. Tamsulosin 0.4mg qd and Dutasteride 0.5mg qd. Dysuria: pain and burning every time he urinates Incomplete bladder emptying: feels he is emptying most of the time Hematuria: no Frequency: no Urgency: only if he waits too long Nocturia: 1-2x Stream: states he strains quite a bit to get the urine out sometimes Leaking: yes sometimes Post void dripping: no Wearing pads/ Depends: wears depends and states he does not have to change it every day. States that he will wear the same one as long as 3 days at a time if it stays dry Urge incontinence: states sometimes, once in a great while Stress incontinence: no Incontinence without Sensory Awareness: no Abdominal pain: no Flank pain: no Sexual complaints: no History of Present Illness Tests reviewed: reviewed UA I have reviewed the previous health record information and history for this patient from Dr. Ceja. I have reviewed and verified the staff HPI to be accurate for this encounter. Review of Systems PHQ Score Initial Depression Screen Score: 0 SCORE ROS - Provider Constitutional: denies weight loss, denies hot flashes. Eyes: denies eye problems. Gastrointestinal: denies nausea, denies vomiting. Cardiovascular: denies chest pain or angina. Integumentary: no dryness Musculoskeletal: denies musculoskeletal symptoms. ENMT: denies otolaryngeal symptoms. Respiratory: no shortness of breath. Heme/Lymph: denies easy bleeding tendency, denies easy bruising tendency. Psychiatric: no confusion, no anxiety. Genitourinary: See HPI. Physical Exam Vitals & Measurements HR: 62(Peripheral) RR: 16 BP: 117/68 HT: 67 in HT: 170 cm WT: 63 kg WT: 138.6 lb BMI: 21.8 General Appearance: alert, no distress, well nourished, well developed male. Genitourinary: normal scrotum, normal testes, normal urethra, normal epididymis, normal vas deferens/spermatic cord. Flank Pain: none. Bladder: nonpalpable. Assessment/Plan 1. BPH with urinary obstruction (N40.1: Benign prostatic hyperplasia with lower urinary tract symptoms) Taking Dutasteride 0.5mg qd and Tamsulosin 0.4mg bid. Tamsulosin dosage increased at prior OV. States he cannot tell a significant difference in urinary sxs on increased dosage. Only has UUI if he waits too long. Feels he empties well. Denies any bothersome urinary habits at this time. -Cont Dutasteride and Tamsulosin wo changes 2. Chronic prostatitis (N41.1: Chronic prostatitis) UA today negative for blood and infection. States he has burning each time he voids, ongoing x6 months. States he does not drink much fluid, 1 glass of water per day. Advised pt he is likely dehydrated. Recommended pt to increase fluid intake to eight to ten 16oz bottles a day; preferably water, clear pop, and sugar free lemonade. Higher fluid intake will help improve pain with urination. -Increase fluid intake Follow-up With When Contact Information BRENNA LUU, Ted Echavarria, URL [facility] [address] , [place] [address]- [phone] Additional Instructions: 1 yr Patient Education Benign Prostatic Hyperplasia I, Wilda Choudhary, personally scribed for Dr. Ceja on 06/20/2023 16:03:21. . .. Problem List/Past Medical History Ongoing Anemia due to gastrointestinal blood loss Anticoagulated Anxiety Aortic insufficiency At risk for falls Atherosclerotic heart disease BMI 25.0-25.9,adult BPH with [...] Tab, 25 mg= 1 tab(s), Oral, BID clopidogrel, 75 mg, Oral, Daily dutasteride 0.5 mg Cap, 0.5 mg= 1 cap(s), Oral, Daily, 3 refills glime (more content not included)... Normal [facility] Comment on above: Result Comment: Elec tronically Signed By: Ted CEJA MD\.br\Date and Time Signed: 06/20/23 16:04 EST\.br\Electronically Co-Signed By: Wilad Choudhary\.br\Date and Time Co-Signed: 06/20/23 16:03 EST Consultation Noteon 01-20-20 23 Consultation Note [id number]:[id number] [facility] Stool Cultureon 01-18-2023 Stool culture Reason for [...] or E. coli 0157:H7 Isolated PERFORMED BY: [place] [address] PATHOLOGIST PORTER HEAD SUMAN HAY M.D. [facility] Comment on above: Performed By: #### C USTOOL #### [place] [address] [place] Calprotectin, Fecalon 2022 Calprotectin, Fecal 78 Normal 0-120 [facility] Comment on above: Order Comment: Reaso n for Exam Constipation, unspecified constipation type Result Comment: Conc entration Interpretation Follow-Up < 5 - 50 ug/g Normal None >50 -120 ug/g Borderline Re-evaluate in 4-6 weeks >120 ug/g Abnormal Repeat as clinically indicated Performed at: [facility] [address] [id number] Machinery Engineer: Miguel Avilez MD, Phone: [phone] PERFORMED BY: [place] [address] PATHOLOGIST PORTER HEAD SUMAN HAY M.D. Performed By: #### O [...] possibility of a parasitic infection. Performed at: [address] [id number] Machinery Engineer: Igor Roque PhD, Phone: [phone] PERFORMED BY: [place] [address] PATHOLOGIST PORTER HEAD SUMAN HAY M.D. [facility] Comment on above: Performed By: #### O PEXAM, CALPROTECT, ELASTASE STOOL #### [facility] , Pancreatic Elastase, Stoolon 01-16-2023 Pancreatic Elastase, Stool 150 Low >200 [facility] Comment on above: Order Comment: Reaso n for Exam Constipation, unspecified constipation type Result Comment: Resu lt Units: ug Elast./g Severe Pancreatic Insufficiency: <100 Moderate Pancreatic Insufficiency: 100 - 200 Normal: >200 Performed at: [facility] [address] [id number] Machinery Engineer: Miguel Avilez MD, Phone: [phone] PERFORMED BY: [place] [address] PATHOLOGIST PORTER HEAD SUMAN HAY M.D. Performed By: #### O PEXAM, CALPROTECT, ELASTASE STOOL #### [facility] , C reactive protein [Mass/vol ume] in Serum or PlasmaOrdered By: Imad Asaad on 01-12-2023 CRP [Mass/Vol] < 0.5 mg/dL 0.0-0.5 [facility] C-Reactive Proteinon 023 CRP [Mass/Vol] mg/L Normal 0.0-0.5 [facility] Comment on above: Order Comment: Reaso n for Exam Constipation, unspecified constipation type Performed By: #### T SH3, ESR, CRP #### [facility] [address] [place] [address] #### CELIAC, HIV SCREEN #### [facility] , Celiacon 01-12-2023 Deamidated Gliadin Abs, IgA 10 Normal 0-19 [facility] Comment on above: Order Comment: Reaso n for Exam Constipation, unspecified constipation type Result Comment: Nega tive 0 - 19 Weak Positive 20 - 30 Moderate to Strong Positive >30 Performed By: #### T SH3, ESR, CRP #### [facility] [address] [place] [address] [place] #### CELIAC, HIV SCREEN #### [facility] , Deamidated Gliadin Abs, IgG 2 Normal 0-19 [facility] Comment on above: Order Comment: Reaso n for Exam Constipation, unspecified constipation type Result Comment: Nega tive 0 - 19 Weak Positive 20 - 30 Moderate to Strong Positive >30 Performed By: #### T SH3, ESR, CRP #### [facility] [address] [place] [address] [place] #### CELIAC, HIV SCREEN #### [facility] , Endomysial Antibody IgA Negative Normal Negative [facility] Comment on above: Order Comment: Reaso n for Exam Constipation, unspecified constipation type Performed By: #### T SH3, ESR, CRP #### [facility] [address] [place] [address] #### CELIAC, HIV SCREEN #### [facility] , Immunoglobulin A, Qn, Serum 437 mg/dL Normal 61-437 [facility] Comment on above: Order Comment: Reaso n for Exam Constipation, unspecified constipation type Result Comment: Perf ormed at: - [facility] [place] [id number] Machinery Engineer: Igor Roque PhD, Phone: [phone] Performed By: #### T SH3, ESR, CRP #### [address] #### CELIAC, HIV SCREEN #### [facility] , T-Transglutaminase (tTG) IgA <2 Normal 0-3 [facility] Comment on above: Order Comment: Reaso n for Exam Constipation, unspecified constipation type Result Comment: Nega tive 0 - 3 Weak Positive 4 - 10 Positive >10 Tissue Transglutaminase (tTG) has been identified as the endomysial antigen. Studies have demonstr- ated that endomysial IgA antibodies have over 99% specificity for gluten sensitive enteropathy. Performed By: #### T SH3, ESR, CRP #### [address] #### CELIAC, HIV SCREEN #### [facility] , T-Transglutaminase (tTG) IgG 5 Normal 0-5 [facility] Comment on above: Order Comment: Reaso n for Exam Constipation, unspecified constipation type Result Comment: Nega tive 0 - 5 Weak Positive 6 - 9 Positive >9 Performed By: #### T SH3, ESR, CRP #### [facility] [address] [place] [address] [place] #### CELIAC, HIV SCREEN #### [facility] , Erythrocyte Sedimentation Ra miguel 01-12-2023 ESR (Bld) [Velocity] 19 mm/h Normal 0-19 [facility] Comment on above: Order Comment: Reaso n for Exam Constipation, unspecified constipation type Result Comment: PERF ORMED BY: [place] [address] PATHOLOGIST PORTER HEAD SUMAN HAY M.D. Performed By: #### T SH3, ESR, CRP #### [address] #### CELIAC, HIV SCREEN #### [facility] , Erythrocyte sedimentation ra te by Photometric methodOrdered By: Imad Asaad on 01-12-2023 ESR Photometric method (Bld) [Velocity] 19 mm/hr 0-19 [facility] HIV 1/O/2 Antigen/Antibodyon 01-12-2023 HIV Screen 4th Generation Non-Reactive Normal Non Reactive [facility] Comment on above: Order Comment: Reaso n for Exam Constipation, unspecified constipation type Result Comment: HIV Negative HIV-1/HIV-2 antibodies and HIV-1 p24 antigen were NOT detected. There is no laboratory evidence of HIV infection. Performed at: [facility] [address] [place], [place] [id number] Machinery Engineer: Igor Roque PhD, Phone: [phone] PERFORMED BY: [place] [address] PATHOLOGIST PORTER HEAD SUMAN HAY M.D. Performed By: #### T SH3, ESR, CRP #### [address] #### CELIAC, HIV SCREEN #### [facility] , HIV 1 and HIV-2 antibody ass ay with HIV-1 p24 antigen detectionOrdered By: Imad Asaad on 01-12-2023 HIV 1+2 Ab+HIV1 p24 Ag IA Ql Non-Reactive Non Reactive [facility] Comment on above: HIV NegativeHIV-1/HI V-2 antibodies and HIV-1 p24 antigen were NOTdetected. There is no laboratory evidence of HIV infection.Performed at: [facility] [address] [id number] Director: Igor Roque PhD, Phone: [phone] IgA [Mass/volume] in Serum o r PlasmaOrdered By: Lamin Thomason on 01-12-2023 IgA [Mass/Vol] 437 mg/dL 61-437 [facility] Comment on above: Performed at: [address] [id number] Director: Igor Roque PhD, Phone: [phone] No Panel InformationOrdered By: Lamin Thomason on 01-12-2023 Endomysial IgA Antibody Negative Negative [facility] Serum gliadin peptide IgA an tibody assay (units/volume)Ordered By: [facility] on 01-12-2023 Gliadin peptide IgA Qn (S) 10 units 0-19 [facility] Comment on above: Negative 0 - 19 Weak Positive 20 - 30 Moderate to Strong Positive >30 Serum gliadin peptide IgG an tibody assay (units/volume)Ordered By: francois [facility] on 01-12-2023 Gliadin peptide IgG Qn (S) 2 units 0-19 [facility] Comment on above: Negative 0 - 19 Weak Positive 20 - 30 Moderate to Strong Positive >30 Serum tissue transglutaminas e (tTG) IgA antibody assay (units/volume)Ordered By: francois Thomason on 01-12-2023 tTG IgA Qn (S) <2 U/mL 0-3 [facility] Comment on above: Negative 0 - 3 Weak Positive 4 - 10 Positive >10 Tissue Transglutaminase (tTG) has been identified as the endomysial antigen. Studies have demonstr- ated that endomysial IgA antibodies have over 99% specificity for gluten sensitive enteropathy. Serum tissue transglutaminas e (tTG) IgG antibody assay (units/volume)Ordered By: francois Thomason on 01-12-2023 tTG IgG Qn (S) 5 U/mL 0-5 [facility] Comment on above: Negative 0 - 5 Weak Positive 6 - 9 Positive >9 Thyroid Stimulating Hormoneo n 01-12-2023 TSH Qn 1.54 m[IU]/L Normal 0.45-5.33 [facility] Comment on above: Order Comment: Reaso n for Exam Constipation, unspecified constipation type Result Comment: PERF ORMED BY: [place] [address] PATHOLOGIST PORTER HEAD SUMAN HAY M.D. 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 Take mauw-bry-iepkqvo and prescription medicines only as told by [...] Where to find more information ? [employer] [place] [employer] Diabetes and Digestive and Kidney Diseases: (more content not included)... Normal [facility] Urology Office/Clinic Noteon 12-13-2022 Urology Office/Clinic [...] Ted Echavarria, URL [facility] [address] [place] [phone] Additional Instructions: 6 mos Patient Education Prostatitis IWilda, personally scribed for Dr. Ceja on 12/13/2022 16:26:30. . Documentation recorded by the oneilibWilda diego, accurately reflects the services(s) I performed and [...] mg Oral (more content not included)... Normal [facility] Comment on above: Result Comment: Elec tronically Signed By: Ted CEJA MD\.br\Date and Time Signed: 12/13/22 16:29 EDT\.br\Electronically Co-Signed By: Wilda Choudhary\.br\Date and Time Co-Signed: 12/13/22 16:27 EDT RAD - CT Reporton 10-26-2022 RAD - CT Report [id number]:127 Normal [facility] Lab Reportson 10-24-2022 Lab Reports [id number]:127 Normal [facility] Ambulatory Visit Summaryon 0 10-06-2022 Ambulatory Visit Summary PATRICK RUTHERFORD :1940 Visit Date:10/06/2022 Ambulatory Visit Instructions Your Diagnosis Weight loss Irritable bowel syndrome Frequent loose stools Your Care Team Attending Physician - GURWINDER LUU, Tevin Echavarria Primary Care Physician - Veronica Adame MD This Is Your Medications List [...] LUU, Ted Echavarria Where: [facility] General Surgery Office/Clini c [...] Recorded inf (more content not included)... Normal [facility] Comment on above: Result Comment: Elec tronically Signed By: GURWINDER LUU, Tevin Leiva\Date and Time Signed: 10/06/22 16:12 EDT Outside Colonoscopyon 2022 Outside Colonoscopy [id number]:127 Normal [facility] POINT OF CARE GLUCOSEon 09-13 Glucose [Mass/Vol] 132 mg/dL Critically high 74-106 T [facility] Comment on above: Performed By: #### P OCGLUC #### [facility] [address] [address] [address] Lety Torres Consent for Procedure/Surger yon 09-23-2022 Consent for Procedure/Surgery [id number]:127 [facility] Ambulatory Visit Summaryon 0 09-22-2022 Ambulatory Visit Summary PATRICK RUTHERFORD :1940 Visit Date:09/22/2022 Ambulatory Visit Instructions Your Care Team Attending Physician - GURWINDER LUU, Tevin Echavarria Primary Care Physician - Deep LUU, Veronica This Is Your Medications List aspirin (aspirin [...] LUU, Ted Echavarria Where: [facility] Physician Referralon 023 Physician Referral [id number]:127 Normal [facility] Follow-Upon 03-29-2022 Follow-Up [id number] Patrick Rutherford M 1940 M Date Provider Department Center 03/29/2022 TRIPP DECKER JANETANGÉLICAMILEMIL PA [facility] No family history on file Level of Service:07506 MD POSTOP FOLLOW UP VISIT RELATED TO ORIGINAL PX Reason for Visit and Comments: Post-op [483] - TCAR follow up [facility] Office Visiton 03-08-2022 Follow-up visit [id number] KrishOral M 1940 M Date Provider Department Center 03/08/2022 TRIPP DECKER RAQUELEMIL PA [facility] No family history on file Level of Service:17653 MD POSTOP FOLLOW UP VISIT RELATED TO ORIGINAL PX Reason for Visit and Comments: Post-op [483] - Post op TCAR on 02/22/22 [facility] BASIC METABOLIC PANELon 02-13 Anion gap [Moles/Vol] 6 mmol/L Normal <=30 [facility] Comment on above: Performed By: #### L [id number] ####[facility] (BEAKER)[address] [place] [address] Calcium [Mass/Vol] 8.8 mg/dL Normal 8.6-10.3 [facility] Comment on above: Performed By: #### L [id number] ####[facility] (BEAKER)[address] [place] [address] Chloride [Moles/Vol] 108 mmol/L High 98-107 [facility] Comment on above: Performed By: #### L [id number] ####[facility] (BEAKER)[address] [place] [address] CO2 [Moles/Vol] 24 mmol/L Normal 21-31 [facility] Comment on above: Performed By: #### L [id number] ####[facility] (BEAKER)[address] [place] [address] Creatinine [Mass/Vol] 1.18 mg/dL Normal 0.70-1.30 [facility] Comment on above: Performed By: #### L [id number] ####[facility] ([facility])[address] [place] [address] GLOMERULAR FILTRATION RATE ML/MIN/1.73 SQ M.PREDICTED 56.7 mL/min/1.73m*2 Low >60.0 [facility] Comment on above: Result Comment: [facility]???s estimated glomerular filtration rate (eGFR) will [...] of individuals. Performed By: #### L [id number] ####[facility] ([facility])[address] [place] [address] Glucose [Mass/Vol] 56 mg/dL Low 70-100 [facility] Comment on above: Performed By: #### L [id number] ####[facility] ([facility])[address] [place] [address] Potassium [Moles/Vol] 3.9 mmol/L Normal 3.5-5.1 [facility] Comment on above: Performed By: #### L [id number] ####[facility] ([facility])[address] [place] [address] Sodium [Moles/Vol] 138 mmol/L Normal 136-145 [facility] Comment on above: Performed By: #### L [id number] ####[facility] ([facility])[address] [place] [address] Urea nitrogen [Mass/Vol] 20 mg/dL Normal 7-25 [facility] Comment on above: Performed By: #### L [id number] ####[facility] [place] [address] UREA NITROGEN/CREATININE (MASS RATIO) IN SER/PLAS 16.95 Normal [facility] Comment on above: Performed By: #### L [id number] ####[facility] ([facility])[address] [address] CBCon 02-24-2022 Erythrocyte distribution width (RBC) [Ratio] 14.0 % Normal 11.5-15.0 [facility] Comment on above: Performed By: #### L [id number] ####[facility] ([facility])[address] [place] [address] ERYTHROCYTE MEAN CORPUSCULAR HEMOGLOBIN CONCENTRATION (G/DL) BY AUTOMATED 32.7 g/dL Normal 32.0-35.0 [facility] Comment on above: Performed By: #### L [id number] ####[facility] ([facility])[address] [place] [address] Hematocrit (Bld) [Volume fraction] 27.5 % Low 39.0-55.0 [facility] Comment on above: Performed By: #### L [id number] ####[facility] ([facility])[address] [place] [address] Hemoglobin (Bld) [Mass/Vol] 9.0 g/dL Low 13.0-17.0 [facility] Comment on above: Performed By: #### L [id number] ####[facility] ([facility])[address] [place] [address] MCH (RBC) [Entitic mass] 30.4 pg Normal 27.0-33.0 [facility] Comment on above: Performed By: #### L [id number] ####[facility] ([facility])[address] [place] [address] MCV (RBC) [Entitic vol] 92.9 fL Normal 82.0-98.0 [facility] Comment on above: Performed By: #### L [id number] ####[facility] ([facility])[address] [place] [address] PLATELETS (10*3/UL) IN BLOOD AUTOMATED COUNT 282 10*3/uL Normal 150-400 [facility] Comment on above: Performed By: #### L [id number] ####[facility] ([facility])[address] [place] [address] RBC (Bld) [#/Vol] 2.96 10*6/uL Low 4.20-5.70 [facility] Comment on above: Performed By: #### L [id number] ####[facility] ([facility])[address] [place] [address] WBC (Bld) [#/Vol] 9.28 10*3/uL Normal 4.00-10.60 [facility] Comment on above: Performed By: #### L [id number] ####[facility] ([facility])[address] [place] [address] MAGNESIUMon 02-24-2022 Magnesium [Mass/Vol] 1.9 mg/dL Normal 1.9-2.7 [facility] Comment on above: Performed By: #### L [id number] #### [facility] ([facility]) [address] [place] [address] NURSNOTEon 02-24-2022 NURSNOTE Attempted to call re port to [place] x2 with no pickup. RN will be happy to give report if facility chooses to call upon their receipt of the patient. Normal [facility] PHOSPHORUSon 02-24-2022 Magnesium [Mass/Vol] 4.7 mg/dL Normal 2.5-5.0 [facility] Comment on above: Performed By: #### L [id number] ####[facility] ([facility])[address] [place] [address] POCT GLUCOSE METER UNSOLICIT ED RESULTSon 02-24-2022 Glucose [Mass/Vol] 144 mg/dL High 70-105 [facility] Comment on above: Result Comment: [email or web address] Performed By: #### L [id number] ####[facility] (BEAKER)[address] [place] [address] Glucose [Mass/Vol] 196 mg/dL High 70-105 [facility] Comment on above: Result Comment: [email or web address] Performed By: #### L [id number] ####[facility] (BEAKER)[address] [place] [address] Glucose [Mass/Vol] 113 mg/dL High 70-105 [facility] Comment on above: Result Comment: [email or web address] Performed By: #### L [id number] ####[facility] (BEAKER)[address] [place] [address] BASIC METABOLIC PANELon 10- Anion gap [Moles/Vol] 7 mmol/L Normal <=30 [facility] Comment on above: Performed By: #### L [id number] ####[facility] (BEAKER)[address] [place] [address] Calcium [Mass/Vol] 9.1 mg/dL Normal 8.6-10.3 [facility] Comment on above: Performed By: #### L [id number] ####[facility] (BEAKER)[address] [place] [address] Chloride [Moles/Vol] 109 mmol/L High 98-107 [facility] Comment on above: Performed By: #### L [id number] ####[facility] (BEAKER)[address] [place] [address] CO2 [Moles/Vol] 22 mmol/L Normal 21-31 [facility] Comment on above: Performed By: #### L [id number] ####[facility] (BEAKER)[address] [place] [address] Creatinine [Mass/Vol] 0.88 mg/dL Normal 0.70-1.30 [facility] Comment on above: Performed By: #### L [id number] ####[facility] (BEAKER)[address] [place] [address] GLOMERULAR FILTRATION RATE ML/MIN/1.73 SQ M.PREDICTED 79.4 mL/min/1.73m*2 Normal >60.0 [facility] Comment on above: Result Comment: [facility]???s estimated glomerular filtration rate (eGFR) will [...] of individuals. Performed By: #### L [id number] ####[facility] ([facility])[address] [place] [address] Glucose [Mass/Vol] 91 mg/dL Normal 70-100 [facility] Comment on above: Performed By: #### L [id number] ####[facility] ([facility])[address] [place] [address] Potassium [Moles/Vol] 4.3 mmol/L Normal 3.5-5.1 [facility] Comment on above: Performed By: #### L [id number] ####[facility] ([facility])[address] [place] [address] Sodium [Moles/Vol] 138 mmol/L Normal 136-145 [facility] Comment on above: Performed By: #### L [id number] ####[facility] ([facility])[address] [place] [address] Urea nitrogen [Mass/Vol] 14 mg/dL Normal 7-25 [facility] Comment on above: Performed By: #### L [id number] ####[facility] ([facility])[address] [place] [address] UREA NITROGEN/CREATININE (MASS RATIO) IN SER/PLAS 15.91 Normal [facility] Comment on above: Performed By: #### L [id number] ####[facility] ([facility])[address] [place] [address] CBCon 02-23-2022 Erythrocyte distribution width (RBC) [Ratio] 14.3 % Normal 11.5-15.0 [facility] Comment on above: Performed By: #### L [id number] ####[facility] ([facility] [address] ERYTHROCYTE MEAN CORPUSCULAR HEMOGLOBIN CONCENTRATION (G/DL) BY AUTOMATED 34.7 g/dL Normal 32.0-35.0 [facility] Comment on above: Performed By: #### L [id number] ####[facility] ([facility] [place] [address] Hematocrit (Bld) [Volume fraction] 30.0 % Low 39.0-55.0 [facility] Comment on above: Performed By: #### L [id number] ####[facility] ([facility] [place] [address] Hemoglobin (Bld) [Mass/Vol] 10.4 g/dL Low 13.0-17.0 [facility] Comment on above: Performed By: #### L [id number] ####[facility] ([facility] [place] [address] MCH (RBC) [Entitic mass] 31.5 pg Normal 27.0-33.0 [facility] Comment on above: Performed By: #### L [id number] ####[facility] (BEAKER)[address] [place] [address] MCV (RBC) [Entitic vol] 90.9 fL Normal 82.0-98.0 [facility] Comment on above: Performed By: #### L [id number] ####[facility] (BEAKER)[address] [place] [address] PLATELETS (10*3/UL) IN BLOOD AUTOMATED COUNT 306 10*3/uL Normal 150-400 [facility] Comment on above: Performed By: #### L [id number] ####[facility] (BEAKER)[address] [place] [address] RBC (Bld) [#/Vol] 3.30 10*6/uL Low 4.20-5.70 [facility] Comment on above: Performed By: #### L [id number] ####[facility] [place] [address] WBC (Bld) [#/Vol] 10.55 10*3/uL Normal 4.00-10.60 [facility] Comment on above: Performed By: #### L [id number] ####[facility] ([facility])[address] [place] [address] Documentationon 02-23-2022 Documentation [id number] Rutherford,Oral M 1940 M Date Provider Department Center 02/23/[address] [facility] PACU [facility] No family history on file Normal [facility] MAGNESIUMon 02-23-2022 Magnesium [Mass/Vol] 1.4 mg/dL Low 1.9-2.7 [facility] Comment on above: Performed By: #### L [id number] ####[facility] ([facility])[address] [place] [address] NURSNOTEon 02-23-2022 NURSNOTE Last heparin dose gi christopher at 0042. 0600 dose rescheduled to 0900 , discussed with pharmacy. Normal [facility] NURSNOTE Tylenol given as ord ered, Pt received oral medication well without issue. Pt is able to swallow, and speak in full sentences without difficulty. Airway intact, no trach deviation noted. Normal [facility] PHOSPHORUSon 02-23-2022 Magnesium [Mass/Vol] 4.5 mg/dL Normal 2.5-5.0 [facility] Comment on above: Performed By: #### L [id number] ####[facility] ([facility])[address] [place] [address] POCT GLUCOSE METER UNSOLICIT ED RESULTSon 02-23-2022 Glucose [Mass/Vol] 99 mg/dL Normal 70-105 [facility] Comment on above: Result Comment: [email or web address] Performed By: #### L [id number] ####[facility] ([facility])[address] [place] [address] Glucose [Mass/Vol] 190 mg/dL High 70-105 [facility] Comment on above: Result Comment: [email or web address] Performed By: #### L [id number] ####[facility] ([facility])[address] [place] [address] Glucose [Mass/Vol] 108 mg/dL High 70-105 [facility] Comment on above: Result Comment: [email or web address] Performed By: #### L [id number] ####[facility] ([facility])[address] [place] [address] Glucose [Mass/Vol] 132 mg/dL High 70-105 [facility] Comment on above: Result Comment: [email or web address] Performed By: #### L [id number] ####[facility] [facility] ([facility])[address] [place] [address] PROTIME-INRon 02-23-2022 INR IN PPP BY COAGULATION ASSAY 1.08 Normal 0.90-1.10 [facility] Comment on above: Result Comment: ACCC [...] CHEST 1995;108:231S-246S. Performed By: #### L [id number] ####[facility] (BEAKER)[address] [place] [address] PROTHROMBIN TIME (PT) IN PPP BY COAGULATION ASSAY 13.9 Seconds Normal 12.3-14.8 [facility] Comment on above: Performed By: #### L [id number] ####[facility] ([facility]ER)[address] [place] [address] TROPONIN Ion 02-23-2022 Troponin I.cardiac [Mass/Vol] 0.02 ng/mL Normal 0.00-0.04 [facility] Comment on above: Result Comment: REFE RENCE RANGES: 0.00 - 0.14 ng/mL NEGATIVE 0.15 - 0.25 ng/mL INDETERMINATE > 0.25 ng/mL INDICATIVE OF AN M.I. Performed By: #### L [id number] ####[facility] [place] [address] XR CHEST 1 VIEWon 02-23-2022 XR CHEST 1 VIEW Single view chest History: Difficulty breathing, shortness of breath Comparison: 08/23/2016 Findings: Single portable view of the chest. Stable cardiomediastinal silhouette. There is atherosclerotic thoracic aorta. No focal consolidation large effusion or pneumothorax. IMPRESSION: No evidence of acute cardiopulmonary process. Electronically signed: Tevin Prieto. Normal [facility] CONSULTon 02-22-2022 CONSULT -------- Attestation signed [...] Rutherford Age - 81 y.o. - 1940 N - [id number] [facility] # - [id number] Date of Admission - 02/22/2022 12:06 PM [...] Coronary artery disease, COVID-19 (01/14/2022), Diabetes mellitus ([facility]), Fractures, GERD (gastroesophageal reflux disease), History [...] PRN fentaNYL (more content not included)... Normal [facility] HPon 02-22-2022 [facility] General Surgery HISTORY & PHYSICAL [...] angio w and wo IV contrast Narrative: [facility] Department of Radiology [address] [place] [id number] === (more content not included)... Normal [facility] NURSNOTEon 02-22-2022 NURSNOTE Vascular at bedside assessing patient. Vascular changed patient dressing. No new orders at this time. Evy Randhawa THREAD TRIMMER Normal [facility] NURSNOTE Since arrival to PAC U patients neck has measure 22 inch. Patient neck is now measuring 22.5 inches. Patient denies difficulty swallowing and difficulty breathing. Vascular team answered page from Jeremy (surgery) and is coming to see patient at bedside. Evy Randhawa THREAD TRIMMER Normal [facility] REGINA Attempted to page va scular multiple time over the last half hour. Patients R side of neck feels firm and noted to have serosanguineous drainage on dressing. MICU doctor at bedside. Patient stable. Patient states no difficulty swallowing or breathing. MICU doctor states no new orders at this time and to continue to page vascular. Evy Randhawa THREAD TRIMMER Normal [facility] NURSCARLOS CONTRAST: 40ML 219 MGY 5.7 MIN Normal [facility] NURSNOTE ACT: 1618: BASELINE - 122 1647: ACT 212 1658: ACT 237 Normal [facility] OPNOTEon 02-22-2022 OPNOTE Right Transcarotid A rtery Revascularization (TCAR) Date: 02/22/2022 Location: [facility] OR Name: Patrick Rutherford, : 1940, [...] TCAR STENT SYSTEM 8MM X 40MM Implanted [id number] Staff: Soda Maker: Low Cerrato RN Scrub Person: Amaya Batista, ROSANA; Zoya Harris; Samantha Meadows CST Interviewing Clerk: Fernandez Jarquin CSA [place] Soda Maker: Aiyana Moody Indications: Patrick Rutherford is an [...] hemodynamically stable. Condition: stable Jazz Diamond Normal [facility] POCT ACTIVATED CLOTTING TIME UNSOLICITED RESULTSon 02-22-2022 POC ACTIVATED CLOTTING TIME 237 sec High 82-152 [facility] Comment on above: Performed By: #### L [id number] ####[facility] ([facility]ER)[address] [place] [address] POC ACTIVATED CLOTTING TIME 212 sec High 82-152 [facility] Comment on above: Performed By: #### L [id number] ####[facility] (BEAKER)[address] [place] [address] POC ACTIVATED CLOTTING TIME 122 sec Normal 82-152 [facility] Comment on above: Performed By: #### L [id number] ####[facility] (BEAKER)[address] [place] [address] POCT GLUCOSE METER UNSOLICIT ED RESULTSon 02-22-2022 Glucose [Mass/Vol] 129 mg/dL High 70-105 [facility] Comment on above: Result Comment: elsymadina ruffinConor Performed By: #### L [id number] ####[facility] ([facility])[address] [place] [address] Glucose [Mass/Vol] 149 mg/dL High 70-105 [facility] Comment on above: Result Comment: tamiko preeti Performed By: #### L [id number] ####[facility] ([facility])[address] [place] [address] Glucose [Mass/Vol] 239 mg/dL High 70-105 [facility] Comment on above: Result Comment: espa [email or web address] Performed By: #### L [id number] ####[facility] ([facility])[address] [place] [address] APTTon 02-19-2022 ACTIVATED PARTIAL THROMBOPLASTIN TIME IN PPP BY COAGULATION ASSAY 25.4 Seconds Normal 25.0-35.0 [facility] Comment on above: Performed By: #### L [id number] ####[facility] ([facility])[address] [place] [address] BASIC METABOLIC PANELon Anion gap [Moles/Vol] 9 mmol/L Normal <=30 [facility] Comment on above: Performed By: #### L [id number] ####[facility] ([facility])[address] [place] [address] Calcium [Mass/Vol] 9.3 mg/dL Normal 8.6-10.3 [facility] Comment on above: Performed By: #### L [id number] ####[facility] ([facility])[address] [place] [address] Chloride [Moles/Vol] 106 mmol/L Normal 98-107 [facility] Comment on above: Performed By: #### L [id number] ####[facility] [place] [address] CO2 [Moles/Vol] 22 mmol/L Normal 21-31 [facility] Comment on above: Performed By: #### L [id number] ####[facility] [place] [address] Creatinine [Mass/Vol] 1.16 mg/dL Normal 0.70-1.30 [facility] Comment on above: Performed By: #### L [id number] ####[facility] ([facility])[address] [place] [address] GLOMERULAR FILTRATION RATE ML/MIN/1.73 SQ M.PREDICTED 57.9 mL/min/1.73m*2 Low >60.0 [facility] Comment on above: Result Comment: [facility]???s estimated glomerular filtration rate (eGFR) will [...] of individuals. Performed By: #### L [id number] ####[facility] [place] [address] Glucose [Mass/Vol] 253 mg/dL High 70-100 [facility] Comment on above: Performed By: #### L [id number] ####[facility] [place] [address] Potassium [Moles/Vol] 4.7 mmol/L Normal 3.5-5.1 [facility] Comment on above: Performed By: #### L [id number] ####[facility] [place] [address] Sodium [Moles/Vol] 137 mmol/L Normal 136-145 [facility] Comment on above: Performed By: #### L [id number] ####[facility] (BEAKER)[address] [place] [address] Urea nitrogen [Mass/Vol] 25 mg/dL Normal 7-25 [facility] Comment on above: Performed By: #### L [id number] ####[facility] ([facility]ER)[address] [place] [address] UREA NITROGEN/CREATININE (MASS RATIO) IN SER/PLAS 21.55 Normal [facility] Comment on above: Performed By: #### L [id number] ####[facility] [place] [address] CBCon 02-19-2022 Erythrocyte distribution width (RBC) [Ratio] 13.9 % Normal 11.5-15.0 [facility] Comment on above: Performed By: #### L [id number] ####[facility] [place] [address] ERYTHROCYTE MEAN CORPUSCULAR HEMOGLOBIN CONCENTRATION (G/DL) BY AUTOMATED 33.1 g/dL Normal 32.0-35.0 [facility] Comment on above: Performed By: #### L [id number] ####[facility] [place] [address] Hematocrit (Bld) [Volume fraction] 34.4 % Low 39.0-55.0 [facility] Comment on above: Performed By: #### L [id number] ####[facility] [place] [address] Hemoglobin (Bld) [Mass/Vol] 11.4 g/dL Low 13.0-17.0 [facility] Comment on above: Performed By: #### L [id number] ####[facility] (BEAKER)[address] [place] [address] MCH (RBC) [Entitic mass] 30.7 pg Normal 27.0-33.0 [facility] Comment on above: Performed By: #### L [id number] ####[facility] [place] [address] MCV (RBC) [Entitic vol] 92.7 fL Normal 82.0-98.0 [facility] Comment on above: Performed By: #### L [id number] ####[facility] ([facility])[address] [place] [address] PLATELETS (10*3/UL) IN BLOOD AUTOMATED COUNT 349 10*3/uL Normal 150-400 [facility] Comment on above: Performed By: #### L [id number] ####[facility] ([facility])[address] [place] [address] RBC (Bld) [#/Vol] 3.71 10*6/uL Low 4.20-5.70 [facility] Comment on above: Performed By: #### L [id number] ####[facility] ([facility])[place] [address] WBC (Bld) [#/Vol] 10.62 10*3/uL High 4.00-10.60 [facility] Comment on above: Performed By: #### L [id number] ####[facility] ([facility])[place] [address] MRSA/MSSA DNA NASALon 2021 MRSA DNA Negative Normal Negative, Invalid [facility] Comment on above: Performed By: #### L [id number] ####[facility] ([facility])[place] [address] MSSA DNA Negative Normal Negative, Invalid [facility] Comment on above: Performed By: #### L [id number] ####[facility] ([facility])[address] [place] [address] PROTIME-INRon 02-19-2022 INR IN PPP BY COAGULATION ASSAY 1.00 Normal 0.90-1.10 [facility] Comment on above: Result Comment: ACCC [...] CHEST 1995;108:231S-246S. Performed By: #### L [id number] ####[facility] (BEAKER)[address] [place] [address] PROTHROMBIN TIME (PT) IN PPP BY COAGULATION ASSAY 13.2 Seconds Normal 12.3-14.8 [facility] Comment on above: Performed By: #### L [id number] ####[facility] (BEAKER)[address] [place] [address] SARS-COV-2 [facility] 02-19-2022 SARS-CoV-2 (COVID-19) RNA ISABELLA+probe Ql (Unsp spec) Not detected Normal Not Detected [facility] Comment on above: Result Comment: Not [...] from SARS-CoV-2 isolated and purified from nasopharyngeal (SNACK STEWARD), oropharyngeal (OP), nasal swab, sputum, and bronchoalveolar lavage (BAL) specimens from patients with signs and symptoms of infection who are suspected of COVID-19. Results are for the identification of SARS-CoV-2 RNA. The SARS-CoV-2 RNA is generally detectable during the acute phase of infection. The Aptima SARS-CoV-2 Assay on the [employer] system is intended for use by laboratory personnel specifically instructed and trained in the operation of the [employer] system. The Aptima SARS-CoV-2 assay is only for use under the Food and Drug Administration Emergency Use Authorization. Testing is limited to laboratories certified under the Clinical Laboratory Improvement Amendments of 1988 (CLIA), 42 U.S.C. ???263a, to perform high complexity tests. Performed By: #### L [id number] ####[facility] (BEAKER)[address] [place] [address] TYPE AND SCREENon 02-19-2022 AB SCREEN Negative Normal [facility] Comment on above: Performed By: #### L [id number] ####[facility], ABO group Nom (Bld) A Normal [facility] Comment on above: Performed By: #### L [id number] ####[facility], RH TYPE IN BLOOD Negative Normal [facility] Comment on above: Performed By: #### L [id number] ####[facility], Orders Onlyon 02-17-2022 Orders Only [id number] Rutherford,Oral M 1940 M Date Provider Department Center 02/17/2022 JUSTIN FELICIANO [facility] C No family history on file Normal [facility] Orders Onlyon 02-16-2022 Orders Only [id number] Rutherford,Oral M 1940 M Date Provider Department Center 02/16/2022 AAKASH LOBO [facility] C No family history on file Normal [facility] Orders Onlyon 02-01-2022 Orders Only [id number] Rutherford,Oral M 1940 M Date Provider Department Center 02/01/2022 BEVERLY SORIANO HVCVASENDMayra PA [facility] No family history on file Normal [facility] CBC AUTO DIFFon 12-28-2021 BASO # 0.1 103/ul Normal 0.0-0.1 [facility] Comment on above: Performed By: #### P OCGLUC #### [facility] [address] [address] [address] Lety Torres Basophils/100 WBC (Bld) 0.7 % Normal 0.2-2.0 [facility] Comment on above: Performed By: #### P OCGLUC #### [facility] [address] [address] [address] Lety Torres EO # 0.4 103/ul Normal 0.0-0.7 [facility] Comment on above: Performed By: #### P OCGLUC #### [facility] [address] [address] [address] Lety Torres Eosinophils/100 WBC (Bld) 4.8 % Normal 0.9-7.0 [facility] Comment on above: Performed By: #### P OCGLUC #### [facility] [address] [place] [address] Dr. Lety Torres Erythrocyte distribution width (RBC) [Ratio] 13.7 % Normal 11.0-15.0 [facility] Comment on above: Performed By: #### P OCGLUC #### [facility] [address] [place] [address] Dr. Lety Torres Hematocrit (Bld) [Volume fraction] 29.7 % Critically low 42.0-54.0 [facility] Comment on above: Performed By: #### P OCGLUC #### [facility] [address] [place] [address] Dr. Lety Torres Hemoglobin (Bld) [Mass/Vol] 9.6 g/dL Critically low 14.0-18.0 [facility] Comment on above: Performed By: #### P OCGLUC #### [facility] [address] [place] [address] Dr. Lety Torres IG # 0.11 10e3/ul Critically high 0.00-0.03 [facility] Comment on above: Performed By: #### P OCGLUC #### [facility] [address] [place] [address] Dr. Lety Torres IG % 1.3 % Critically high 0.0-0.5 [facility] Comment on above: Performed By: #### P OCGLUC #### [facility] [address] [address] [address] Lety Torres LYMPH # 2.7 103/ul Normal 1.2-3.8 [facility] Comment on above: Performed By: #### P OCGLUC #### [facility] [address] [place] [address] Dr. Lety Torres Lymphocytes/100 WBC (Bld) 32.5 % Normal 20.5-60.0 [facility] Comment on above: Performed By: #### P OCGLUC #### [facility] [address] [place] [address] Dr. Lety Torres MANUAL DIFF REQ NO Normal [facility] Comment on above: Performed By: #### P OCGLUC #### [facility] [address] [place] [address] Dr. Lety Torres MCH (RBC) [Entitic mass] 29.8 pg Normal 25.9-34.0 [facility] Comment on above: Performed By: #### P OCGLUC #### [facility] [address] [place] [address] Dr. Lety Torres MCHC (RBC) [Mass/Vol] 32.3 g/dL Normal 29.9-35.2 [facility] Comment on above: Performed By: #### P OCGLUC #### [facility] [address] [place] [address] Dr. Lety Torres MCV (RBC) [Entitic vol] 92.2 fL Normal 80.0-94.0 [facility] Comment on above: Performed By: #### P OCGLUC #### [facility] [address] [place] [address] Dr. Lety Torres MONO # 0.8 103/ul Normal 0.3-0.8 [facility] Comment on above: Performed By: #### P OCGLUC #### [facility] [address] [place] [address] Dr. Lety Torres Monocytes/100 WBC (Bld) 10.0 % Normal 1.7-12.0 [facility] Comment on above: Performed By: #### P OCGLUC #### [facility] [address] [address] [address] Lety Torres NEUT # 4.2 103/ul Normal 1.4-6.5 [facility] Comment on above: Performed By: #### P OCGLUC #### [facility] [address] [address] [address] Lety Torres Neutrophils/100 WBC (Bld) 50.7 % Normal 43.0-75.0 [facility] Comment on above: Performed By: #### P OCGLUC #### [facility] [address] [address] [address] Lety Torres Platelet mean volume (Bld) [Entitic vol] 9.7 fL Normal 9.5-13.5 [facility] Comment on above: Performed By: #### P OCGLUC #### [facility] [address] [place] [address] Dr. Lety Torres PLT 333 103/ul Normal 150-450 [facility] Comment on above: Performed By: #### P OCGLUC #### [facility] [address] [place] [address] Dr. Lety Torres RBC 3.22 106/ul Critically low 4.70-6.10 [facility] Comment on above: Performed By: #### P OCGLUC #### [facility] [address] [place] [address] Dr. Lety Torres WBC 8.3 103/ul Normal 4.0-11.0 [facility] Comment on above: Performed By: #### P OCGLUC #### [facility] [address] [place] [address] Dr. Lety Torres CULTURE BLOODon 12-28-2021 Microscopic examination of blood, culture Culture Observations: Aerobic and Anaerobic bottle positive. Culture Observations: BCID- proteus species Culture Observations: Called BCID to Jacinta Morel in [facility] at 2014 on 12/25 Isolate 1 [...] F Trimethoprim/Sulfamethoxazol e <=20 S F Normal [facility] Comment on above: Performed By: #### B [id number] #### [facility] [address] [place] [address] Dr. Lety Torres PROF 14(COMP METB)on 022 Albumin [Mass/Vol] 2.5 g/dL Critically low 3.4-5.0 [facility] Comment on above: Performed By: #### P OCGLUC #### [facility] [address] [place] [address] Dr. Lety Torres Albumin/Globulin [Mass ratio] 0.6 {ratio} Normal [facility] Comment on above: Performed By: #### P OCGLUC #### [facility] [address] [place] [address] Dr. Lety Torres ALP [Catalytic activity/Vol] 85 U/L Normal 46-116 [facility] Comment on above: Performed By: #### P OCGLUC #### [facility] [address] [place] [address] Dr. Lety Torres ALT [Catalytic activity/Vol] 65 U/L Critically high 16-63 [facility] Comment on above: Performed By: #### P OCGLUC #### [facility] [address] [place] [address] Dr. Lety Torres Anion gap [Moles/Vol] 14.4 mmol/L Normal [facility] Comment on above: Performed By: #### P OCGLUC #### [facility] [address] [place] [address] Dr. Lety Torres AST [Catalytic activity/Vol] 30 U/L Normal 15-37 [facility] Comment on above: Performed By: #### P OCGLUC #### [facility] [address] [place] [address] Dr. Lety Torres Bilirubin [Mass/Vol] 0.3 mg/dL Normal 0.2-1.0 [facility] Comment on above: Performed By: #### P OCGLUC #### [facility] [address] [place] [address] Dr. Lety Torres Calcium [Mass/Vol] 8.6 mg/dL Normal 8.5-10.1 [facility] Comment on above: Performed By: #### P OCGLUC #### [facility] [address] [address] [address] Lety Torres Chloride [Moles/Vol] 107 mmol/L Normal 98-107 [facility] Comment on above: Performed By: #### P OCGLUC #### [facility] [address] [place] [address] Dr. Lety Torres CO2 [Moles/Vol] 22.7 mmol/L Normal 21.0-32.0 [facility] Comment on above: Performed By: #### P OCGLUC #### [facility] [address] [place] [address] Dr. Lety Torres Creatinine [Mass/Vol] 1.13 mg/dL Normal 0.70-1.30 [facility] Comment on above: Performed By: #### P OCGLUC #### [facility] [address] [place] [address] Dr. Lety Torres EGFR-AF IRAQI >60 Normal >=60 [facility] Comment on above: Performed By: #### P OCGLUC #### [facility] [address] [place] [address] Dr. Lety Torres EGFR-NON AF IRAQI >60 Normal >=60 [facility] Comment on above: Performed By: #### P OCGLUC #### [facility] [address] [place] [address] Dr. Lety Torres Globulin (S) [Mass/Vol] 4.0 g/dL Normal [facility] Comment on above: Performed By: #### P OCGLUC #### [facility] [address] [place] [address] Dr. Lety Torres Glucose [Mass/Vol] 188 mg/dL Critically high 74-106 T [facility] Comment on above: Performed By: #### P OCGLUC #### [facility] [address] [address] [address] Lety Torres Potassium [Moles/Vol] 4.1 mmol/L Normal 3.5-5.1 [facility] Comment on above: Performed By: #### P OCGLUC #### [facility] [address] [address] [address] Lety Torres Protein [Mass/Vol] 6.5 g/dL Normal 6.4-8.2 [facility] Comment on above: Performed By: #### P OCGLUC #### [facility] [address] [address] [address] Lety Torres Sodium [Moles/Vol] 140 mmol/L Normal 136-145 [facility] Comment on above: Performed By: #### P OCGLUC #### [facility] [address] [address] [address] Lety Torres Urea nitrogen [Mass/Vol] 20.0 mg/dL Critically high 7.0-18.0 [facility] Comment on above: Performed By: #### P OCGLUC #### [facility] [address] [address] [address] Lety Torres Urea nitrogen/Creatinine [Mass ratio] 17.7 mg/mg Normal [facility] Comment on above: Performed By: #### P OCGLUC #### [facility] [address] [address] [address] Lety Torres CBC AUTO DIFFon 12-27-2021 BASO # 0.0 103/ul Normal 0.0-0.1 [facility] Comment on above: Performed By: #### P OCGLUC #### [facility] [address] [address] [address] Lety Torres Basophils/100 WBC (Bld) 0.4 % Normal 0.2-2.0 [facility] Comment on above: Performed By: #### P OCGLUC #### [facility] [address] [address] [address] Lety Torres EO # 0.2 103/ul Normal 0.0-0.7 [facility] Comment on above: Performed By: #### P OCGLUC #### [facility] [address] [address] [address] Lety Torres Eosinophils/100 WBC (Bld) 2.5 % Normal 0.9-7.0 [facility] Comment on above: Performed By: #### P OCGLUC #### [facility] [address] [place] [address] Dr. Lety Torres Erythrocyte distribution width (RBC) [Ratio] 14.4 % Normal 11.0-15.0 [facility] Comment on above: Performed By: #### P OCGLUC #### [facility] [address] [place] [address] Dr. Lety Torres Hematocrit (Bld) [Volume fraction] 29.7 % Critically low 42.0-54.0 [facility] Comment on above: Performed By: #### P OCGLUC #### [facility] [address] [place] [address] Dr. Lety Torres Hemoglobin (Bld) [Mass/Vol] 9.6 g/dL Critically low 14.0-18.0 [facility] Comment on above: Performed By: #### P OCGLUC #### [facility] [address] [place] [address] Dr. Lety Torres IG # 0.06 10e3/ul Critically high 0.00-0.03 [facility] Comment on above: Performed By: #### P OCGLUC #### [facility] [address] [place] [address] Dr. Lety Torres IG % 0.6 % Critically high 0.0-0.5 [facility] Comment on above: Performed By: #### P OCGLUC #### [facility] [address] [place] [address] Dr. Lety Torres LYMPH # 2.0 103/ul Normal 1.2-3.8 [facility] Comment on above: Performed By: #### P OCGLUC #### [facility] [address] [place] [address] Dr. Lety Torres Lymphocytes/100 WBC (Bld) 20.8 % Normal 20.5-60.0 [facility] Comment on above: Performed By: #### P OCGLUC #### [facility] [address] [place] [address] Dr. Lety Torres MANUAL DIFF REQ NO Normal [facility] Comment on above: Performed By: #### P OCGLUC #### [facility] [address] [place] [address] Dr. Lety Torres MCH (RBC) [Entitic mass] 30.4 pg Normal 25.9-34.0 [facility] Comment on above: Performed By: #### P OCGLUC #### [facility] [address] [place] [address] Dr. Lety Torres MCHC (RBC) [Mass/Vol] 32.3 g/dL Normal 29.9-35.2 [facility] Comment on above: Performed By: #### P OCGLUC #### [facility] [address] [place] [address] Dr. Lety Torres MCV (RBC) [Entitic vol] 94.0 fL Normal 80.0-94.0 [facility] Comment on above: Performed By: #### P OCGLUC #### [facility] [address] [place] [address] Dr. Lety Torres MONO # 0.9 103/ul Critically high 0.3-0.8 [facility] Comment on above: Performed By: #### P OCGLUC #### [facility] [address] [place] [address] Dr. Lety Torres Monocytes/100 WBC (Bld) 9.6 % Normal 1.7-12.0 [facility] Comment on above: Performed By: #### P OCGLUC #### [facility] [address] [place] [address] Dr. Lety Torres NEUT # 6.3 103/ul Normal 1.4-6.5 [facility] Comment on above: Performed By: #### P OCGLUC #### [facility] [address] [place] [address] Dr. Lety Torres Neutrophils/100 WBC (Bld) 66.1 % Normal 43.0-75.0 [facility] Comment on above: Performed By: #### P OCGLUC #### [facility] [address] [address] [address] Lety Torres Platelet mean volume (Bld) [Entitic vol] 10.1 fL Normal 9.5-13.5 [facility] Comment on above: Performed By: #### P OCGLUC #### [facility] [address] [address] [address] Lety Torres PLT 274 103/ul Normal 150-450 [facility] Comment on above: Performed By: #### P OCGLUC #### [facility] [address] [address] [address] Lety Torres RBC 3.16 106/ul Critically low 4.70-6.10 [facility] Comment on above: Performed By: #### P OCGLUC #### [facility] [address] [address] [address] Lety Trores WBC 9.5 103/ul Normal 4.0-11.0 [facility] Comment on above: Performed By: #### P OCGLUC #### [facility] [address] [address] [address] Lety Torres POINT OF CARE GLUCOSEon 12-14 Glucose [Mass/Vol] 247 mg/dL Critically high 74-106 [facility] Comment on above: Performed By: #### P OCGLUC #### [facility] [address] [address] [address] Lety Torres Glucose [Mass/Vol] 135 mg/dL Critically high 74-106 [facility] Comment on above: Performed By: #### P OCGLUC #### [facility] [address] [address] [address] Lety Torres Glucose [Mass/Vol] 124 mg/dL Critically high 74-106 [facility] Comment on above: Performed By: #### P OCGLUC #### [facility] [address] [address] [address] Lety Torres Glucose [Mass/Vol] 98 mg/dL Normal 74-106 [facility] Comment on above: Performed By: #### P OCGLUC #### [facility] [address] [address] [address] Lety Torres Glucose [Mass/Vol] 145 mg/dL Critically high 74-106 [facility] Comment on above: Performed By: #### C MP #### [facility] [address] [place] [address] Dr. Lety Torres PROF 14(COMP METB)on 022 Albumin [Mass/Vol] 2.4 g/dL Critically low 3.4-5.0 [facility] Comment on above: Performed By: #### C MP #### [facility] [address] [place] [address] Dr. Lety Torres Albumin/Globulin [Mass ratio] 0.6 {ratio} Normal [facility] Comment on above: Performed By: #### C MP #### [facility] [address] [place] [address] Dr. Lety Torres ALP [Catalytic activity/Vol] 84 U/L Normal 46-116 [facility] Comment on above: Performed By: #### C MP #### [facility] [address] [address] [address] Lety Torres ALT [Catalytic activity/Vol] 69 U/L Critically high 16-63 [facility] Comment on above: Performed By: #### C MP #### [facility] [address] [address] [address] Lety Torres Anion gap [Moles/Vol] 14.3 mmol/L Normal [facility] Comment on above: Performed By: #### C MP #### [facility] [address] [address] [address] Lety Torres AST [Catalytic activity/Vol] 49 U/L Critically high 15-37 [facility] Comment on above: Performed By: #### C MP #### [facility] [address] [place] [address] Dr. Lety Torres Bilirubin [Mass/Vol] 0.3 mg/dL Normal 0.2-1.0 [facility] Comment on above: Performed By: #### C MP #### [facility] [address] [address] [address] Lety Torres Calcium [Mass/Vol] 8.4 mg/dL Critically low 8.5-10.1 Th [facility] Comment on above: Performed By: #### C MP #### [facility] [address] [address] [address] Lety Torres Chloride [Moles/Vol] 109 mmol/L Critically high 98-107 [facility] Comment on above: Performed By: #### C MP #### [facility] [address] [address] [address] Lety Torres CO2 [Moles/Vol] 22.9 mmol/L Normal 21.0-32.0 [facility] Comment on above: Performed By: #### C MP #### [facility] [address] [address] [address] Lety Torres Creatinine [Mass/Vol] 1.33 mg/dL Critically high 0.70-1.30 [facility] Comment on above: Performed By: #### C MP #### [facility] [address] [address] [address] Lety Torres EGFR-AF IRAQI >60 Normal >=60 [facility] Comment on above: Performed By: #### C MP #### [facility] [address] [address] [address] Lety Torres EGFR-NON AF IRAQI 51 mL/min/1.73m2 Critically low >=60 [facility] Comment on above: Performed By: #### C MP #### [facility] [address] [address] [address] Lety Torres Globulin (S) [Mass/Vol] 3.9 g/dL Normal [facility] Comment on above: Performed By: #### C MP #### [facility] [address] [address] [address] Lety Torres Glucose [Mass/Vol] 220 mg/dL Critically high 74-106 T [facility] Comment on above: Performed By: #### C MP #### [facility] [address] [address] [address] Lety Torres Potassium [Moles/Vol] 4.2 mmol/L Normal 3.5-5.1 [facility] Comment on above: Performed By: #### C MP #### [facility] [address] [address] [address] Leyt Torres Protein [Mass/Vol] 6.3 g/dL Critically low 6.4-8.2 Th [facility] Comment on above: Performed By: #### C MP #### [facility] [address] [address] [address] Lety Torres Sodium [Moles/Vol] 142 mmol/L Normal 136-145 [facility] Comment on above: Performed By: #### C MP #### [facility] [address] [place] [address] Dr. Lety Torres Urea nitrogen [Mass/Vol] 18.0 mg/dL Normal 7.0-18.0 [facility] Comment on above: Performed By: #### C MP #### [facility] [address] [place] [address] Dr. Lety Torres Urea nitrogen/Creatinine [Mass ratio] 13.5 mg/mg Normal [facility] Comment on above: Performed By: #### C MP #### [facility] [address] [place] [address] Dr. Lety Torres CBC AUTO DIFFon 12-26-2021 BASO # 0.0 103/ul Normal 0.0-0.1 [facility] Comment on above: Performed By: #### C BC #### [facility] [address] [place] [address] Dr. Lety Torres Basophils/100 WBC (Bld) 0.2 % Normal 0.2-2.0 [facility] Comment on above: Performed By: #### C BC #### [facility] [address] [place] [address] Dr. Lety Torres EO # 0.0 103/ul Normal 0.0-0.7 [facility] Comment on above: Performed By: #### C BC #### [facility] [address] [place] [address] Dr. Lety Torres Eosinophils/100 WBC (Bld) 0.2 % Critically low 0.9-7.0 [facility] Comment on above: Performed By: #### C BC #### [facility] [address] [place] [address] Dr. Lety Torres Erythrocyte distribution width (RBC) [Ratio] 14.4 % Normal 11.0-15.0 [facility] Comment on above: Performed By: #### C BC #### [facility] [address] [place] [address] Dr. Lety Torres Hematocrit (Bld) [Volume fraction] 29.9 % Critically low 42.0-54.0 [facility] Comment on above: Performed By: #### C BC #### [facility] [address] [place] [address] Dr. Lety Torres Hemoglobin (Bld) [Mass/Vol] 9.6 g/dL Critically low 14.0-18.0 [facility] Comment on above: Performed By: #### C BC #### [facility] [address] [place] [address] Dr. Lety Torres IG # 0.11 10e3/ul Critically high 0.00-0.03 [facility] Comment on above: Performed By: #### C BC #### [facility] [address] [place] [address] Dr. Lety Torres IG % 0.7 % Critically high 0.0-0.5 [facility] Comment on above: Performed By: #### C BC #### [facility] [address] [place] [address] Dr. Lety Torres LYMPH # 2.0 103/ul Normal 1.2-3.8 [facility] Comment on above: Performed By: #### C BC #### [facility] [address] [place] [address] Dr. Lety Torres Lymphocytes/100 WBC (Bld) 12.3 % Critically low 20.5-60.0 [facility] Comment on above: Performed By: #### C BC #### [facility] [address] [place] [address] Dr. Lety Torres MANUAL DIFF REQ NO Normal [facility] Comment on above: Performed By: #### C BC #### [facility] [address] [place] [address] Dr. Lety Torres MCH (RBC) [Entitic mass] 30.1 pg Normal 25.9-34.0 [facility] Comment on above: Performed By: #### C BC #### [facility] [address] [place] [address] Dr. Lety Torres MCHC (RBC) [Mass/Vol] 32.1 g/dL Normal 29.9-35.2 [facility] Comment on above: Performed By: #### C BC #### [facility] [address] [place] [address] Dr. Lety Torres MCV (RBC) [Entitic vol] 93.7 fL Normal 80.0-94.0 [facility] Comment on above: Performed By: #### C BC #### [facility] [address] [place] [address] Dr. Lety Torres MONO # 1.5 103/ul Critically high 0.3-0.8 [facility] Comment on above: Performed By: #### C BC #### [facility] [address] [place] [address] Dr. Lety Torres Monocytes/100 WBC (Bld) 9.3 % Normal 1.7-12.0 [facility] Comment on above: Performed By: #### C BC #### [facility] [address] [place] [address] Dr. Lety Torres NEUT # 12.5 103/ul Critically high 1.4-6.5 [facility] Comment on above: Performed By: #### C BC #### [facility] [address] [place] [address] Dr. Lety Torres Neutrophils/100 WBC (Bld) 77.3 % Critically high 43.0-75.0 [facility] Comment on above: Performed By: #### C BC #### [facility] [address] [place] [address] Dr. Lety Torres Platelet mean volume (Bld) [Entitic vol] 9.5 fL Normal 9.5-13.5 [facility] Comment on above: Performed By: #### C BC #### [facility] [address] [place] [address] Dr. Lety Torres PLT 245 103/ul Normal 150-450 [facility] Comment on above: Performed By: #### C BC #### [facility] [address] [place] [address] Dr. Lety Torres RBC 3.19 106/ul Critically low 4.70-6.10 [facility] Comment on above: Performed By: #### C BC #### [facility] [address] [place] [address] Dr. Lety Torres WBC 16.2 103/ul Critically high 4.0-11.0 [facility] Comment on above: Performed By: #### C BC #### [facility] [address] [place] [address] Dr. Lety Torres BASO # 0.0 103/ul Normal 0.0-0.1 [facility] Comment on above: Performed By: #### P OCGLUC #### [facility] [address] [place] [address] Dr. Lety Torres Basophils/100 WBC (Bld) 0.3 % Normal 0.2-2.0 [facility] Comment on above: Performed By: #### P OCGLUC #### [facility] [address] [place] [address] Dr. Lety Torres EO # 0.1 103/ul Normal 0.0-0.7 [facility] Comment on above: Performed By: #### P OCGLUC #### [facility] [address] [place] [address] Dr. Lety Torres Eosinophils/100 WBC (Bld) 0.3 % Critically low 0.9-7.0 [facility] Comment on above: Performed By: #### P OCGLUC #### [facility] [address] [place] [address] Dr. Lety Torres Erythrocyte distribution width (RBC) [Ratio] 14.5 % Normal 11.0-15.0 [facility] Comment on above: Performed By: #### P OCGLUC #### [facility] [address] [place] [address] Dr. Lety Torres Hematocrit (Bld) [Volume fraction] 27.0 % Critically low 42.0-54.0 [facility] Comment on above: Performed By: #### P OCGLUC #### [facility] [address] [place] [address] Dr. Lety Torres Hemoglobin (Bld) [Mass/Vol] 9.0 g/dL Critically low 14.0-18.0 [facility] Comment on above: Performed By: #### P OCGLUC #### [facility] [address] [place] [address] Dr. Lety Torres IG # 0.10 10e3/ul Critically high 0.00-0.03 [facility] Comment on above: Performed By: #### P OCGLUC #### [facility] [address] [place] [address] Dr. Lety Torres IG % 0.7 % Critically high 0.0-0.5 [facility] Comment on above: Performed By: #### P OCGLUC #### [facility] [address] [place] [address] Dr. Lety Torres LYMPH # 2.5 103/ul Normal 1.2-3.8 [facility] Comment on above: Performed By: #### P OCGLUC #### [facility] [address] [place] [address] Dr. Lety Torres Lymphocytes/100 WBC (Bld) 16.4 % Critically low 20.5-60.0 [facility] Comment on above: Performed By: #### P OCGLUC #### [facility] [address] [place] [address] Dr. Lety Torres MANUAL DIFF REQ NO Normal [facility] Comment on above: Performed By: #### P OCGLUC #### [facility] [address] [place] [address] Dr. Lety Torres MCH (RBC) [Entitic mass] 30.9 pg Normal 25.9-34.0 [facility] Comment on above: Performed By: #### P OCGLUC #### [facility] [address] [place] [address] Dr. Lety Torres MCHC (RBC) [Mass/Vol] 33.3 g/dL Normal 29.9-35.2 [facility] Comment on above: Performed By: #### P OCGLUC #### [facility] [address] [place] [address] Dr. Lety Torres MCV (RBC) [Entitic vol] 92.8 fL Normal 80.0-94.0 [facility] Comment on above: Performed By: #### P OCGLUC #### [facility] [address] [place] [address] Dr. Lety Torres MONO # 1.3 103/ul Critically high 0.3-0.8 [facility] Comment on above: Performed By: #### P OCGLUC #### [facility] [address] [place] [address] Dr. Lety Torres Monocytes/100 WBC (Bld) 8.3 % Normal 1.7-12.0 [facility] Comment on above: Performed By: #### P OCGLUC #### [facility] [address] [place] [address] Dr. Lety Torres NEUT # 11.3 103/ul Critically high 1.4-6.5 [facility] Comment on above: Performed By: #### P OCGLUC #### [facility] [address] [place] [address] Dr. Lety Torres Neutrophils/100 WBC (Bld) 74.0 % Normal 43.0-75.0 [facility] Comment on above: Performed By: #### P OCGLUC #### [facility] [address] [place] [address] Dr. Lety Trores Platelet mean volume (Bld) [Entitic vol] 9.6 fL Normal 9.5-13.5 [facility] Comment on above: Performed By: #### P OCGLUC #### [facility] [address] [address] [address] Lety Torres PLT 232 103/ul Normal 150-450 [facility] Comment on above: Performed By: #### P OCGLUC #### [facility] [address] [address] [address] Lety Torres RBC 2.91 106/ul Critically low 4.70-6.10 [facility] Comment on above: Performed By: #### P OCGLUC #### [facility] [address] [address] [address] Lety Torres WBC 15.2 103/ul Critically high 4.0-11.0 [facility] Comment on above: Performed By: #### P OCGLUC #### [facility] [address] [place] [address] Dr. Lety Torres POINT OF CARE GLUCOSEon 12-14 Glucose [Mass/Vol] 122 mg/dL Critically high 74-106 [facility] Comment on above: Performed By: #### P OCGLUC #### [facility] [address] [place] [address] Dr. Lety Torres Glucose [Mass/Vol] 135 mg/dL Critically high 74-106 [facility] Comment on above: Performed By: #### P OCGLUC #### [facility] [address] [place] [address] Dr. Lety Torres Glucose [Mass/Vol] 282 mg/dL Critically high 74-106 [facility] Comment on above: Performed By: #### P OCGLUC #### [facility] [address] [place] [address] Dr. Lety Torres Glucose [Mass/Vol] 48 mg/dL Critically low 74-106 [facility] Comment on above: Result Comment: Will Repeat Test Performed By: #### P OCGLUC #### [facility] [address] [place] [address] Dr. Lety Torres Glucose [Mass/Vol] 85 mg/dL Normal 74-106 [facility] Comment on above: Performed By: #### P OCGLUC #### [facility] [address] [place] [address] Dr. Lety Torres Glucose [Mass/Vol] 242 mg/dL Critically high 74-106 [facility] Comment on above: Performed By: #### P OCGLUC #### [facility] [address] [place] [address] Dr. Lety Torres Glucose [Mass/Vol] 44 mg/dL Critically low 74-106 Th [facility] Comment on above: Result Comment: Prev iously Confirmed Performed By: #### P OCGLUC #### [facility] [address] [place] [address] Dr. Lety Torres PROF 14(COMP METB)on 022 Albumin [Mass/Vol] 2.4 g/dL Critically low 3.4-5.0 Th [facility] Comment on above: Performed By: #### C MP #### [facility] [address] [place] [address] Dr. Lety Torres Albumin/Globulin [Mass ratio] 0.7 {ratio} Normal [facility] Comment on above: Performed By: #### C MP #### [facility] [address] [place] [address] Dr. Lety Torres ALP [Catalytic activity/Vol] 62 U/L Normal 46-116 [facility] Comment on above: Performed By: #### C MP #### [facility] [address] [place] [address] Dr. Lety Torres ALT [Catalytic activity/Vol] 26 U/L Normal 16-63 [facility] Comment on above: Performed By: #### C MP #### [facility] [address] [place] [address] Dr. Lety Torres Anion gap [Moles/Vol] 11.5 mmol/L Normal [facility] Comment on above: Performed By: #### C MP #### [facility] [address] [place] [address] Dr. Lety Torres AST [Catalytic activity/Vol] 22 U/L Normal 15-37 [facility] Comment on above: Performed By: #### C MP #### [facility] [address] [place] [address] Dr. Lety Torres Bilirubin [Mass/Vol] 0.5 mg/dL Normal 0.2-1.0 [facility] Comment on above: Performed By: #### C MP #### [facility] [address] [place] [address] Dr. Lety Torres Calcium [Mass/Vol] 7.8 mg/dL Critically low 8.5-10.1 Th [facility] Comment on above: Performed By: #### C MP #### [facility] [address] [address] [address] Lety Torres Chloride [Moles/Vol] 107 mmol/L Normal 98-107 [facility] Comment on above: Performed By: #### C MP #### [facility] [address] [place] [address] Dr. Lety Torres CO2 [Moles/Vol] 23.3 mmol/L Normal 21.0-32.0 [facility] Comment on above: Performed By: #### C MP #### [facility] [address] [place] [address] Dr. Lety Torres Creatinine [Mass/Vol] 1.34 mg/dL Critically high 0.70-1.30 [facility] Comment on above: Performed By: #### C MP #### [facility] [address] [place] [address] Dr. Lety Torres EGFR-AF IRAQI >60 Normal >=60 [facility] Comment on above: Performed By: #### C MP #### [facility] [address] [place] [address] Dr. Lety Torres EGFR-NON AF IRAQI 51 mL/min/1.73m2 Critically low >=60 [facility] Comment on above: Performed By: #### C MP #### [facility] [address] [place] [address] Dr. Lety Torres Globulin (S) [Mass/Vol] 3.6 g/dL Normal [facility] Comment on above: Performed By: #### C MP #### [facility] [address] [place] [address] Dr. Lety Torres Glucose [Mass/Vol] 61 mg/dL Critically low 74-106 Th [facility] Comment on above: Performed By: #### C MP #### [facility] [address] [address] [address] Lety Torres Potassium [Moles/Vol] 3.8 mmol/L Normal 3.5-5.1 [facility] Comment on above: Performed By: #### C MP #### [facility] [address] [place] [address] Dr. Lety Torres Protein [Mass/Vol] 6.0 g/dL Critically low 6.4-8.2 Th [facility] Comment on above: Performed By: #### C MP #### [facility] [address] [place] [address] Dr. Lety Torres Sodium [Moles/Vol] 138 mmol/L Normal 136-145 [facility] Comment on above: Performed By: #### C MP #### [facility] [address] [place] [address] Dr. Lety Torres Urea nitrogen [Mass/Vol] 18.0 mg/dL Normal 7.0-18.0 [facility] Comment on above: Performed By: #### C MP #### [facility] [address] [place] [address] Dr. Lety Torres Urea nitrogen/Creatinine [Mass ratio] 13.4 mg/mg Normal [facility] Comment on above: Performed By: #### C MP #### [facility] [address] [place] [address] Dr. Lety Torres BLOOD CULTURE ID PANELon A. baumannii Not detected Normal NOT DETECTED [facility] Comment on above: Performed By: #### C MP #### [facility] [address] [place] [address] Dr. Lety Torres Performed By: #### C VDTB #### [facility] [address] [place] [address] Dr. Lety Torres Bacteriodes fragilis Not detected Normal NOT DETECTED [facility] Comment on above: Performed By: #### C MP #### [facility] [address] [place] [address] Dr. Lety Torres Performed By: #### C VDTBH #### [facility] [address] [place] [address] Dr. Lety Torres BCID CONTROLS PASSED [facility] Comment on above: Performed By: #### C MP #### [facility] [address] [place] [address] Dr. Lety Torres Performed By: #### C VDTBH #### [facility] [address] [place] [address] Dr. Lety Torres BCIDBTHD BLOOD CULTURE BOTTLE INFORMATION [facility] Comment on above: Performed By: #### C MP #### [facility] [address] [place] [address] Dr. Lety Torres Performed By: #### C VDTBH #### [facility] [address] [place] [address] Dr. Lety Torres BCIDHD1 ANTIMICROBIAL RESIST ANCE GENES [facility] Comment on above: Performed By: #### C MP #### [facility] [address] [place] [address] Dr. Lety Torres Performed By: #### C VDTBH #### [facility] [address] [place] [address] Dr. Lety Torres BCIDHD2 SEE BELOW [facility] Comment on above: Result Comment: Note : Antimicrobial resitance can occur via multiple mechanisms. A Not Detected result for the [employer] antomicrobial resistance gene assays does not indicate antimicrobial susceptibility. Subculturing is required for species identification and susceptibility testing of isolates. Performed By: #### C MP #### [facility] [address] [place] [address] Dr. Lety Torres Performed By: #### C VDTBH #### [facility] [address] [place] [address] Dr. Lety Torres BCIDHD3 Positive [facility] Comment on above: Performed By: #### C MP #### [facility] [address] [place] [address] Dr. Lety Torres Performed By: #### C VDTBH #### [facility] [address] [place] [address] Dr. Lety Torres BCIDHD4 Negative Normal [facility] Comment on above: Performed By: #### C MP #### [facility] [address] [address] [address] Lety Torres Performed By: #### C VDTBH #### [facility] [address] [place] [address] Dr. Lety Torres BCIDHD5 YEAST Normal [facility] Comment on above: Performed By: #### C MP #### [facility] [address] [place] [address] Dr. Lety Torres Performed By: #### C VDTBH #### [facility] [address] [place] [address] Dr. Lety Torres Bottle Set: Set 1 Normal [facility] Comment on above: Performed By: #### C MP #### [facility] [address] [place] [address] Dr. Lety Torres Performed By: #### C VDTBH #### [facility] [address] [place] [address] Dr. Lety Torres Bottle: Aerobic Normal [facility] Comment on above: Performed By: #### C MP #### [facility] [address] [place] [address] Dr. Lety Torres Bottle: Anaerobic Normal [facility] Comment on above: Performed By: #### C VDTBH #### [facility] [address] [place] [address] Dr. Lety Torres C. neoformans/gattii Not detected Normal NOT DETECTED [facility] Comment on above: Performed By: #### C MP #### [facility] [address] [place] [address] Dr. Lety Torres Performed By: #### C VDTBH #### [facility] [address] [place] [address] Dr. Lety Torres Kaylah albicans Not detected Normal NOT DETECTED [facility] Comment on above: Performed By: #### C MP #### [facility] [address] [place] [address] Dr. Lety Torres Performed By: #### C VDTBH #### [facility] [address] [place] [address] Dr. Lety Torres Kaylah auris Not detected Normal NOT DETECTED [facility] Comment on above: Performed By: #### C MP #### [facility] [address] [place] [address] Dr. Lety Torres Performed By: #### C VDTBH #### [facility] [address] [place] [address] Dr. Lety Torres Kaylah glabrata Not detected Normal NOT DETECTED [facility] Comment on above: Performed By: #### C MP #### [facility] [address] [place] [address] Dr. Lety Torres Performed By: #### C VDTBH #### [facility] [address] [place] [address] Dr. Lety Torres Kaylah Krusei Not detected Normal NOT DETECTED [facility] Comment on above: Performed By: #### C MP #### [facility] [address] [place] [address] Dr. Lety Torres Performed By: #### C VDTBH #### [facility] [address] [place] [address] Dr. Lety Torres Kaylah Parapsilosis Not detected Normal NOT DETECTED [facility] Comment on above: Performed By: #### C MP #### [facility] [address] [place] [address] Dr. Lety Torres Performed By: #### C VDTBH #### [facility] [address] [place] [address] Dr. Lety Torres Kaylah Tropicalis Not detected Normal NOT DETECTED [facility] Comment on above: Performed By: #### C MP #### [facility] [address] [place] [address] Dr. Lety Torres Performed By: #### C VDTBH #### [facility] [address] [place] [address] Dr. Lety Torres CTX-M Resistant Gene Not detected Normal NOT DETECTED [facility] Comment on above: Performed By: #### C MP #### [facility] [address] [place] [address] Dr. Lety Torres Performed By: #### C VDTBH #### [facility] [address] [place] [address] Dr. Lety Torres E. Cloacae complex Not detected Normal NOT DETECTED [facility] Comment on above: Performed By: #### C MP #### [facility] [address] [place] [address] Dr. Lety Torres Performed By: #### C VDTBH #### [facility] [address] [place] [address] Dr. Lety Torres E. faecalis Not detected Normal NOT DETECTED [facility] Comment on above: Performed By: #### C MP #### [facility] [address] [place] [address] Dr. Lety Torres Performed By: #### C VDTBH #### [facility] [address] [place] [address] Dr. Lety Torres E. faecium Not detected Normal NOT DETECTED [facility] Comment on above: Performed By: #### C MP #### [facility] [address] [place] [address] Dr. Lety Torres Performed By: #### C VDTBH #### [facility] [address] [place] [address] Dr. Lety Torres Enterobacteriaceae Detected Abnormal NOT DETECTED [facility] Comment on above: Performed By: #### C MP #### [facility] [address] [place] [address] Dr. Lety Torres Performed By: #### C VDTBH #### [facility] [address] [place] [address] Dr. Lety Torres Escherichia coli Not detected Normal NOT DETECTED [facility] Comment on above: Performed By: #### C MP #### [facility] [address] [place] [address] Dr. Lety Torres Performed By: #### C VDTBH #### [facility] [address] [place] [address] Dr. Lety Torres H. influenzae Not detected Normal NOT DETECTED [facility] Comment on above: Performed By: #### C MP #### [facility] [address] [place] [address] Dr. Lety Torres Performed By: #### C VDTBH #### [facility] [address] [place] [address] Dr. Lety Torres IMP Resistant Gene Not detected Normal NOT DETECTED [facility] Comment on above: Performed By: #### C MP #### [facility] [address] [place] [address] Dr. Lety Torres Performed By: #### C VDTBH #### [facility] [address] [place] [address] Dr. Lety Torres K. oxytoca Not detected Normal NOT DETECTED [facility] Comment on above: Performed By: #### C MP #### [facility] [address] [place] [address] Dr. Lety Torres Performed By: #### C VDTBH #### [facility] [address] [place] [address] Dr. Lety Torres K. pneumoniae Not detected Normal NOT DETECTED [facility] Comment on above: Performed By: #### C MP #### [facility] [address] [place] [address] Dr. Lety Torres Performed By: #### C VDTBH #### [facility] [address] [place] [address] Dr. Lety Torres Klebsiella aerogenes Not detected Normal NOT DETECTED [facility] Comment on above: Performed By: #### C MP #### [facility] [address] [place] [address] Dr. Lety Torres Performed By: #### C VDTBH #### [facility] [address] [place] [address] Dr. Lety Torres KPC Resistant Gene Not detected Normal NOT DETECTED [facility] Comment on above: Performed By: #### C MP #### [facility] [address] [place] [address] Dr. Lety Torres Performed By: #### C VDTBH #### [facility] [address] [place] [address] Dr. Lety Torres List. monocytogenes Not detected Normal NOT DETECTED [facility] Comment on above: Performed By: #### C MP #### [facility] [address] [place] [address] Dr. Lety Torres Performed By: #### C VDTBH #### [facility] [address] [place] [address] Dr. Lety Torres Mcr-1 Resistant Gene Not detected Normal NOT DETECTED [facility] Comment on above: Performed By: #### C MP #### [facility] [address] [place] [address] Dr. Lety Torres Performed By: #### C VDTBH #### [facility] [address] [place] [address] Dr. Lety Torres mecA/C Not detected Normal NOT DETECTED [facility] Comment on above: Performed By: #### C MP #### [facility] [address] [place] [address] Dr. Lety Torres Performed By: #### C VDTBH #### [facility] [address] [place] [address] Dr. Lety Torres mecA/C MREJ Not detected Normal NOT DETECTED [facility] Comment on above: Performed By: #### C MP #### [facility] [address] [place] [address] Dr. Lety Torres Performed By: #### C VDTBH #### [facility] [address] [place] [address] Dr. Lety Torres N. meningitidis Not detected Normal NOT DETECTED [facility] Comment on above: Performed By: #### C MP #### [facility] [address] [place] [address] Dr. Lety Torres Performed By: #### C VDTBH #### [facility] [address] [place] [address] Dr. Lety Torres NDM Resistant Gene Not detected Normal NOT DETECTED [facility] Comment on above: Performed By: #### C MP #### [facility] [address] [place] [address] Dr. Lety Torres Performed By: #### C VDTBH #### [facility] [address] [place] [address] Dr. Lety Torres Oxa-48-like Not detected Normal NOT DETECTED [facility] Comment on above: Performed By: #### C MP #### [facility] [address] [place] [address] Dr. Lety Torres Performed By: #### C VDTBH #### [facility] [address] [place] [address] Dr. Lety Torres Proteus Detected Abnormal NOT DETECTED [facility] Comment on above: Performed By: #### C MP #### [facility] [address] [place] [address] Dr. Lety Torres Performed By: #### C VDTBH #### [facility] [address] [place] [address] Dr. Lety Torres Pseud. aeruginosa Not detected Normal NOT DETECTED [facility] Comment on above: Performed By: #### C MP #### [facility] [address] [place] [address] Dr. Lety Torres Performed By: #### C VDTBH #### [facility] [address] [place] [address] Dr. Leyt Torres S. maltophilia Not detected Normal NOT DETECTED [facility] Comment on above: Performed By: #### C MP #### [facility] [address] [place] [address] Dr. Lety Torres Performed By: #### C VDTBH #### [facility] [address] [place] [address] Dr. Lety Torres Salmonella Not detected Normal NOT DETECTED [facility] Comment on above: Performed By: #### C MP #### [facility] [address] [place] [address] Dr. Lety Torres Performed By: #### C VDTBH #### [facility] [address] [place] [address] Dr. Lety Torres Seratia marcescens Not detected Normal NOT DETECTED [facility] Comment on above: Performed By: #### C MP #### [facility] [address] [address] [address] Lety Torres Performed By: #### C VDTBH #### [facility] [address] [place] [address] Dr. Lety Torres Site: left ac Normal [facility] Comment on above: Performed By: #### C MP #### [facility] [address] [place] [address] Dr. Lety Torres Performed By: #### C VDTBH #### [facility] [address] [place] [address] Dr. Lety Torres Staph. aureus Not detected Normal NOT DETECTED [facility] Comment on above: Performed By: #### C MP #### [facility] [address] [place] [address] Dr. Lety Torres Performed By: #### C VDTBH #### [facility] [address] [place] [address] Dr. Lety Torres Staph. epidermidis Not detected Normal NOT DETECTED [facility] Comment on above: Performed By: #### C MP #### [facility] [address] [place] [address] Dr. Lety Torres Performed By: #### C VDTBH #### [facility] [address] [place] [address] Dr. Lety Torres Staph. lugdunensis Not detected Normal NOT DETECTED [facility] Comment on above: Performed By: #### C MP #### [facility] [address] [place] [address] Dr. Lety Torres Performed By: #### C VDTBH #### [facility] [address] [place] [address] Dr. Lety Torres Staphylococcus Not detected Normal NOT DETECTED [facility] Comment on above: Performed By: #### C MP #### [facility] [address] [place] [address] Dr. Lety Torres Performed By: #### C VDTBH #### [facility] [address] [place] [address] Dr. Lety Torres Strep. agalactiae Not detected Normal NOT DETECTED [facility] Comment on above: Performed By: #### C MP #### [facility] [address] [place] [address] Dr. Lety Torres Performed By: #### C VDTBH #### [facility] [address] [place] [address] Dr. Lety Torres Strep. pneumoniae Not detected Normal NOT DETECTED [facility] Comment on above: Performed By: #### C MP #### [facility] [address] [place] [address] Dr. Lety Torres Performed By: #### C VDTBH #### [facility] [address] [place] [address] Dr. Ltey Torres Strep. pyogenes Not detected Normal NOT DETECTED [facility] Comment on above: Performed By: #### C MP #### [facility] [address] [place] [address] Dr. Lety Torres Performed By: #### C VDTBH #### [facility] [address] [place] [address] Dr. Lety Torres Streptococcus Not detected Normal NOT DETECTED [facility] Comment on above: Performed By: #### C MP #### [facility] [address] [place] [address] Dr. Lety Torres Performed By: #### C VDTBH #### [facility] [address] [place] [address] Dr. Lety Torres Dede/B Resist. Gene Not detected Normal NOT DETECTED [facility] Comment on above: Performed By: #### C MP #### [facility] [address] [place] [address] Dr. Lety Torres Performed By: #### C VDTBH #### [facility] [address] [place] [address] Dr. Lety Torres VIM Resistant Gene Not detected Normal NOT DETECTED [facility] Comment on above: Performed By: #### C MP #### [facility] [address] [place] [address] Dr. Lety Torres Performed By: #### C VDTBH #### [facility] [address] [place] [address] Dr. Lety Torres CBC AUTO DIFFon 12-25-2021 BASO # 0.0 103/ul Normal 0.0-0.1 [facility] Comment on above: Performed By: #### P OCGLUC #### [facility] [address] [place] [address] Dr. Lety Torres Basophils/100 WBC (Bld) 0.3 % Normal 0.2-2.0 [facility] Comment on above: Performed By: #### P OCGLUC #### [facility] [address] [place] [address] Dr. Lety Torres EO # 0.0 103/ul Normal 0.0-0.7 [facility] Comment on above: Performed By: #### P OCGLUC #### [facility] [address] [place] [address] Dr. Lety Torres Eosinophils/100 WBC (Bld) 0.1 % Critically low 0.9-7.0 [facility] Comment on above: Performed By: #### P OCGLUC #### [facility] [address] [place] [address] Dr. Lety Torres Erythrocyte distribution width (RBC) [Ratio] 13.8 % Normal 11.0-15.0 [facility] Comment on above: Performed By: #### P OCGLUC #### [facility] [address] [place] [address] Dr. Lety Torres Hematocrit (Bld) [Volume fraction] 50.5 % Normal 42.0-54.0 [facility] Comment on above: Performed By: #### P OCGLUC #### [facility] [address] [place] [address] Dr. Lety Torres Hemoglobin (Bld) [Mass/Vol] 16.8 g/dL Normal 14.0-18.0 [facility] Comment on above: Performed By: #### P OCGLUC #### [facility] [address] [place] [address] Dr. Lety Torres IG # 0.04 10e3/ul Critically high 0.00-0.03 [facility] Comment on above: Performed By: #### P OCGLUC #### [facility] [address] [place] [address] Dr. Lety Torres IG % 0.6 % Critically high 0.0-0.5 [facility] Comment on above: Performed By: #### P OCGLUC #### [facility] [address] [place] [address] Dr. Lety Torres LYMPH # 0.4 103/ul Critically low 1.2-3.8 [facility] Comment on above: Performed By: #### P OCGLUC #### [facility] [address] [place] [address] Dr. Lety Torres Lymphocytes/100 WBC (Bld) 5.8 % Critically low 20.5-60.0 [facility] Comment on above: Performed By: #### P OCGLUC #### [facility] [address] [place] [address] Dr. Lety Torres MANUAL DIFF REQ NO Normal [facility] Comment on above: Performed By: #### P OCGLUC #### [facility] [address] [place] [address] Dr. Lety Torres MCH (RBC) [Entitic mass] 30.3 pg Normal 25.9-34.0 [facility] Comment on above: Performed By: #### P OCGLUC #### [facility] [address] [place] [address] Dr. Lety Torres MCHC (RBC) [Mass/Vol] 33.3 g/dL Normal 29.9-35.2 [facility] Comment on above: Performed By: #### P OCGLUC #### [facility] [address] [place] [address] Dr. Lety Torres MCV (RBC) [Entitic vol] 91.0 fL Normal 80.0-94.0 [facility] Comment on above: Performed By: #### P OCGLUC #### [facility] [address] [place] [address] Dr. Lety Torres MONO # 0.1 103/ul Critically low 0.3-0.8 [facility] Comment on above: Performed By: #### P OCGLUC #### [facility] [address] [place] [address] Dr. Lety Torres Monocytes/100 WBC (Bld) 1.0 % Critically low 1.7-12.0 [facility] Comment on above: Performed By: #### P OCGLUC #### [facility] [address] [place] [address] Dr. Lety Torres NEUT # 6.5 103/ul Normal 1.4-6.5 [facility] Comment on above: Performed By: #### P OCGLUC #### [facility] [address] [place] [address] Dr. Lety Torres Neutrophils/100 WBC (Bld) 92.2 % Critically high 43.0-75.0 [facility] Comment on above: Performed By: #### P OCGLUC #### [facility] [address] [place] [address] Dr. Lety Torres Platelet mean volume (Bld) [Entitic vol] 9.5 fL Normal 9.5-13.5 [facility] Comment on above: Performed By: #### P OCGLUC #### [facility] [address] [place] [address] Dr. Lety Torres PLT 186 103/ul Normal 150-450 [facility] Comment on above: Performed By: #### P OCGLUC #### [facility] [address] [place] [address] Dr. Lety Torres RBC 5.55 106/ul Normal 4.70-6.10 [facility] Comment on above: Performed By: #### P OCGLUC #### [facility] [address] [place] [address] Dr. Lety Torres WBC 7.0 103/ul Normal 4.0-11.0 [facility] Comment on above: Performed By: #### P OCGLUC #### [facility] [address] [place] [address] Dr. Lety Torres CULTURE BLOODon 08-12-2022 Microscopic examination of blood, culture Culture Observations: NO GROWTH AT 5 DAYS. Normal [facility] Comment on above: Performed By: #### C MP #### [facility] [address] [place] [address] Dr. Lety Torres CULTURE URINEon 12-25-2021 CULTURE URINE Culture Observations : No growth Normal [facility] Comment on above: Performed By: #### C MP #### [facility] [address] [place] [address] Dr. Lety Torres Covid-19 PCR (CVDTB)on 12-14 SARS-CoV-2 (COVID-19) RNA ISABELLA+probe Ql (Unsp spec) Not detected Normal NOT DETECTED [facility] Comment on above: Result Comment: When diagnostic [...] for this test is supported by the [employer] Professor of [employer] and Human Service's declaration that [...] used). Performed By: #### C VDTBH #### [facility] [address] [place] [address] Dr. Lety Torres ER URINE PROFILEon 2 Bilirubin Ql (U) Negative Normal NEGATIVE [facility] Comment on above: Performed By: #### C MP #### [facility] [address] [place] [address] Dr. Lety Torres Clarity (U) SL CLOUDY Abnormal CLEAR [facility] Comment on above: Performed By: #### C MP #### [facility] [address] [place] [address] Dr. Lety Torres Color (U) LT. YELLOW Normal YELLOW [facility] Comment on above: Performed By: #### C MP #### [facility] [address] [place] [address] Dr. Lety SIERRA A micrscopic examina tion will be performed if indicated. Normal [facility] Comment on above: Performed By: #### C MP #### [facility] [address] [place] [address] Dr. Lety Torres Glucose Ql (U) Negative Normal NEGATIVE [facility] Comment on above: Performed By: #### C MP #### [facility] [address] [place] [address] Dr. Lety Torres Hemoglobin Ql (U) SMALL Abnormal NEGATIVE [facility] Comment on above: Performed By: #### C MP #### [facility] [address] [place] [address] Dr. Lety Torres Ketones Ql (U) Negative Normal NEGATIVE [facility] Comment on above: Performed By: #### C MP #### [facility] [address] [place] [address] Dr. Lety Torres LEUKOCYTES SMALL Abnormal NEGATIVE [facility] Comment on above: Performed By: #### C MP #### [facility] [address] [place] [address] Dr. Lety Torres Nitrite Ql (U) Positive Abnormal NEGATIVE [facility] Comment on above: Performed By: #### C MP #### [facility] [address] [place] [address] Dr. Lety Torres pH (U) 6.0 [pH] Normal 5-9 [facility] Comment on above: Performed By: #### C MP #### [facility] [address] [place] [address] Dr. Lety Torres SPEC GRAVITY 1.020 Normal 1.005-<=1. 025 [facility] Comment on above: Performed By: #### C MP #### [facility] [address] [place] [address] Dr. Lety Torres UA PROTEIN TRACE Normal NEGATIVE/ TRACE [facility] Comment on above: Performed By: #### C MP #### [facility] [address] [address] [address] Lety Torres UR MICRO IND INDICATED Normal [facility] Comment on above: Performed By: #### C MP #### [facility] [address] [place] [address] Dr. Lety Torres Urobilinogen Qn (U) 0.2 {Curt'U}/dL Normal 0.2 - 1. 0 [facility] Comment on above: Performed By: #### C MP #### [facility] [address] [place] [address] Dr. Lety Torres LACTATE/LACTIC ACIDon 2021 Lactate [Moles/Vol] 1.8 mmol/L Normal 0.4-1.9 [facility] Comment on above: Performed By: #### L ACT #### [facility] [address] [place] [address] Dr. Lety Torres Lactate [Moles/Vol] 2.5 mmol/L Critically high 0.4-1.9 [facility] Comment on above: Performed By: #### C MP #### [facility] [address] [place] [address] Dr. Lety Torres POINT OF CARE GLUCOSEon 12-14 Glucose [Mass/Vol] 83 mg/dL Normal 74-106 [facility] Comment on above: Performed By: #### P OCGLUC #### [facility] [address] [place] [address] Dr. Lety Torres Glucose [Mass/Vol] 45 mg/dL Critically low 74-106 [facility] Comment on above: Result Comment: Resu lt Not Confirmed Performed By: #### P OCGLUC #### [facility] [address] [place] [address] Dr. Lety Torres Glucose [Mass/Vol] 44 mg/dL Critically low 74-106 [facility] Comment on above: Result Comment: Will Repeat Test Performed By: #### P OCGLUC #### [facility] [address] [place] [address] Dr. Lety Torres Glucose [Mass/Vol] 81 mg/dL Normal 74-106 [facility] Comment on above: Performed By: #### C MP #### [facility] [address] [place] [address] Dr. Lety Torrse Glucose [Mass/Vol] 146 mg/dL Critically high 74-106 [facility] Comment on above: Performed By: #### P OCGLUC #### [facility] [address] [place] [address] Dr. Lety Torres Glucose [Mass/Vol] 213 mg/dL Critically high 74-106 [facility] Comment on above: Performed By: #### P OCGLUC #### [facility] [address] [place] [address] Dr. Lety Torres PROF 14(COMP METB)on 022 Albumin [Mass/Vol] 3.8 g/dL Normal 3.4-5.0 [facility] Comment on above: Performed By: #### P OCGLUC #### [facility] [address] [place] [address] Dr. Lety Torres Albumin/Globulin [Mass ratio] 0.9 {ratio} Normal [facility] Comment on above: Performed By: #### P OCGLUC #### [facility] [address] [place] [address] Dr. Lety Torrse ALP [Catalytic activity/Vol] 96 U/L Normal 46-116 [facility] Comment on above: Performed By: #### P OCGLUC #### [facility] [address] [place] [address] Dr. Lety Torres ALT [Catalytic activity/Vol] 22 U/L Normal 16-63 [facility] Comment on above: Performed By: #### P OCGLUC #### [facility] [address] [place] [address] Dr. Lety Torres Anion gap [Moles/Vol] 16.7 mmol/L Normal [facility] Comment on above: Performed By: #### P OCGLUC #### [facility] [address] [place] [address] Dr. Lety Torres AST [Catalytic activity/Vol] 16 U/L Normal 15-37 [facility] Comment on above: Performed By: #### P OCGLUC #### [facility] [address] [address] [address] Lety Torres Bilirubin [Mass/Vol] 1.3 mg/dL Critically high 0.2-1.0 [facility] Comment on above: Performed By: #### P OCGLUC #### [facility] [address] [place] [address] Dr[address] Lety Torres Calcium [Mass/Vol] 9.3 mg/dL Normal 8.5-10.1 [facility] Comment on above: Performed By: #### P OCGLUC #### [facility] [address] [place] [address] Dr. Lety Torres Chloride [Moles/Vol] 102 mmol/L Normal 98-107 [facility] Comment on above: Performed By: #### P OCGLUC #### [facility] [address] [place] [address] Dr. Lety Torres CO2 [Moles/Vol] 21.8 mmol/L Normal 21.0-32.0 [facility] Comment on above: Performed By: #### P OCGLUC #### [facility] [address] [place] [address] Dr. Lety Torres Creatinine [Mass/Vol] 1.52 mg/dL Critically high 0.70-1.30 [facility] Comment on above: Performed By: #### P OCGLUC #### [facility] [address] [place] [address] Dr. Lety Torres EGFR-AF IRAQI 53 mL/min/1.73m2 Critically low >=60 [facility] Comment on above: Performed By: #### P OCGLUC #### [facility] [address] [place] [address] Dr. Lety Torres EGFR-NON AF IRAQI 44 mL/min/1.73m2 Critically low >=60 [facility] Comment on above: Performed By: #### P OCGLUC #### [facility] [address] [place] [address] Dr. Lety Torres Globulin (S) [Mass/Vol] 4.2 g/dL Normal [facility] Comment on above: Performed By: #### P OCGLUC #### [facility] [address] [place] [address] Dr. Lety Torres Glucose [Mass/Vol] 208 mg/dL Critically high 74-106 [facility] Comment on above: Performed By: #### P OCGLUC #### [facility] [address] [place] [address] Dr. Lety Torres Potassium [Moles/Vol] 4.5 mmol/L Normal 3.5-5.1 [facility] Comment on above: Performed By: #### P OCGLUC #### [facility] [address] [place] [address] Dr. Lety Torres Protein [Mass/Vol] 8.0 g/dL Normal 6.4-8.2 [facility] Comment on above: Performed By: #### P OCGLUC #### [facility] [address] [place] [address] Dr. Lety Torres Sodium [Moles/Vol] 136 mmol/L Normal 136-145 [facility] Comment on above: Performed By: #### P OCGLUC #### [facility] [address] [place] [address] Dr. Lety Torres Urea nitrogen [Mass/Vol] 21.0 mg/dL Critically high 7.0-18.0 [facility] Comment on above: Performed By: #### P OCGLUC #### [facility] [address] [place] [address] Dr. Lety Torres Urea nitrogen/Creatinine [Mass ratio] 13.8 mg/mg Normal [facility] Comment on above: Performed By: #### P OCGLUC #### [facility] [address] [place] [address] Dr. Lety Torres URINE MICROSCOPIC ONLYon BACTERIA TRACE Abnormal NONE SEEN [facility] Comment on above: Performed By: #### C MP #### [facility] [address] [place] [address] Dr. Lety Torres Bacteria identified Cx Nom (U) INDICATED Normal [facility] Comment on above: Performed By: #### C MP #### [facility] [address] [place] [address] Dr. Lety Torres CAST NONE SEEN Normal NONE SEEN [facility] Comment on above: Performed By: #### C MP #### [facility] [address] [place] [address] Dr. Lety Torres Crystals LM Nom (Urine sed) NONE SEEN Normal NONE SEEN [facility] Comment on above: Performed By: #### C MP #### [facility] [address] [place] [address] Dr. Lety Torres Epithelial cells LM Ql (Urine sed) RARE Normal NONE SEEN /RARE [facility] Comment on above: Performed By: #### C MP #### [facility] [address] [place] [address] Dr. Lety Torres MUCOUS NONE SEEN Normal NONE SEEN [facility] Comment on above: Performed By: #### C MP #### [facility] [address] [place] [address] Dr. Lety Torres RBC NONE SEEN Abnormal 0-2 [facility] Comment on above: Performed By: #### C MP #### [facility] [address] [place] [address] Dr. Lety Torres WBC 5-10 Abnormal NONE SEEN [facility] Comment on above: Performed By: #### C MP #### [facility] [address] [place] [address] Dr. Lety Torres YEAST PRESENT Abnormal NONE SEEN [facility] Comment on above: Performed By: #### C MP #### [facility] [address] [place] [address] Dr. Lety Torres XR CHEST 1 Von [...] GREGORY ELIZABETH Date: 2021-12-25 02:15 Normal [facility] PROF CHEM 8 (BAS METB)on Anion gap [Moles/Vol] 16.5 mmol/L Normal [facility] Comment on above: Performed By: #### B MP #### [facility] [address] [address] [address] Lety Torres Calcium [Mass/Vol] 8.9 mg/dL Normal 8.5-10.1 [facility] Comment on above: Performed By: #### B MP #### [facility] [address] [place] [address] [address] Lety Torres Chloride [Moles/Vol] 108 mmol/L Critically high 98-107 [facility] Comment on above: Performed By: #### B MP #### [facility] [address] [address] [address] Lety Torres CO2 [Moles/Vol] 21.2 mmol/L Normal 21.0-32.0 [facility] Comment on above: Performed By: #### B MP #### [facility] [address] [address] [address] Lety Torres Creatinine [Mass/Vol] 1.32 mg/dL Critically high 0.70-1.30 [facility] Comment on above: Performed By: #### B MP #### [facility] [address] [address] [address] Lety Torres EGFR-AF IRAQI >60 Normal >=60 [facility] Comment on above: Performed By: #### B MP #### [facility] [address] [address] [address] Lety Torres EGFR-NON AF IRAQI 52 mL/min/1.73m2 Critically low >=60 [facility] Comment on above: Performed By: #### B MP #### [facility] [address] [address] [address] Lety Torres Glucose [Mass/Vol] 260 mg/dL Critically high 74-106 T [facility] Comment on above: Performed By: #### B MP #### [facility] [address] [address] [address] Lety Torres Potassium [Moles/Vol] 4.7 mmol/L Normal 3.5-5.1 [facility] Comment on above: Performed By: #### B MP #### [facility] [address] [address] [address] Lety Torres Sodium [Moles/Vol] 141 mmol/L Normal 136-145 [facility] Comment on above: Performed By: #### B MP #### [facility] [address] [address] [address] Lety Torres Urea nitrogen [Mass/Vol] 23.0 mg/dL Critically high 7.0-18.0 [facility] Comment on above: Performed By: #### B MP #### [facility] [address] [address] [address] Lety Torres Urea nitrogen/Creatinine [Mass ratio] 17.4 mg/mg Normal [facility] Comment on above: Performed By: #### B MP #### [facility] [address] [address] [address] Lety Torres CTA HEADon 11-02-2021 CTA HEAD [facility] Department of Radiology [address] [place] [id number] Patient Name: PATRICK RUTHERFORD : 1940 Sex: M Age: Race: White Pt. Location: [facility] Patient Status: O Ordered Date: 09/11/2021 11:40:00 AM Completed Date: 11/02/2021 03:40 PM Requesting Provider: TRIPP KENNY Attending Provider: TRIPP KENNY Report Copy To: VERONICA ADAME Signs & Symptoms: I65.23 Occlusion and stenosis of bilateral carotid arteries I10 History: Zakiya DM? on metformin? kidney dis? Will have labs done at [facility] Comments: Exam: CTA HEAD CTA HEAD 11/02/2021 [...] stenosis. Electronically signed: Ernesto Villasenor. Transcribed by: [email or web address], User Resident: ERNESTO VILLASENOR Electronically Signed by: ERNESTO VILLASENOR @ 11/02/2021 04:25 PM I personally read this/these film(s) with this resident Normal [facility] CTA NECKon 11-02-2021 CTA NECK [facility] Department of Radiology [address] [place] [address] Patient Name: PATRICK RUTHERFORD : 1940 Sex: M Age: Race: White Pt. Location: 392 Patient Status: Ordered Date: 09/11/2021 11:40:00 AM Completed Date: 11/02/2021 03:40 PM Requesting Provider: TRIPP KENNY Attending Provider: Report Copy To: VERONICA ADAME Signs & Symptoms: I65.23 Occlusion and stenosis of bilateral carotid arteries I10 pre op History: Zakiya DM? on metformin? kidney dis? DM - will have labs done at [facility] Comments: Exam: CTA NECK CTA NECK 11/02/2021 [...] viewed on a separate workstation. [facility] Symptomatic Carotid Endarterectomy Trial (NASCET) method for [...] achievable Electronically signed: Ernesto Villasenor. Transcribed by: [email or web address], User Resident: ERNESTO VILLASENOR Electronically Signed by: ERNESTO VILLASENOR @ 11/02/2021 04:32 PM I personally read this/these film(s) with this resident Normal [facility] CREATININEon 10-15-2021 Creatinine [Mass/Vol] 1.25 mg/dL Normal 0.70-1.30 [facility] Comment on above: Performed By: #### P OCGLUC #### [facility] [address] [address] [address] Lety Torres EGFR-AF IRAQI >60 Normal >=60 [facility] Comment on above: Performed By: #### P OCGLUC #### [facility] [address] [place], [place] [address] Dr. Lety Torres EGFR-NON AF IRAQI 55 mL/min/1.73m2 Critically low >=60 [facility] Comment on above: Performed By: #### P OCGLUC #### [facility] [address] [place], [place] [address] Dr. Lety Torres Vital Signs Date Time Vital Sign Value Performing Clinician Facility 06-20-2023 15:30-0500 Blood Pressure Location Ted CEJA [facility] 06-20-2023 15:30-0500 Diastolic blood pressure 68 mm[Hg] Ted CEJA [facility] 06-20-2023 15:30-0500 Heart rate 62 /min Ted CEJA [facility] 06-20-2023 15:30-0500 Respiratory rate 16 /min Ted CEJA [facility] 06-20-2023 15:30-0500 Systolic blood pressure 117 mm[Hg] Ted CEJA [facility] 01-12-2023 14:15-0400 Body height 167.64 cm Imad Asaad Other [facility] Other 01-12-2023 14:15-0400 Body mass index (BMI) [Ratio] 26.55 kg/m2 Imad Asaad Other [facility] Other 01-12-2023 14:15-0400 Body weight 74.62 kg Imad Asaad Other [facility] Other 01-12-2023 14:15-0400 Diastolic blood pressure 52 mm[Hg] Imad Asaad Other [facility] Other 01-12-2023 14:15-0400 Systolic blood pressure 105 mm[Hg] Imad Asaad Other [facility] Other 09-22-2022 14:24-0400 Blood Pressure Location Tevin PURDY [facility] [place] 09-22-2022 14:24-0400 Diastolic blood pressure 70 mm[Hg] Tevin NILL [facility] [place] 09-22-2022 14:24-0400 Heart rate 72 /min Tevin NILL [facility] [place] 09-22-2022 14:24-0400 Respiratory rate 16 /min Tevin NILL [facility] [place] 09-22-2022 14:24-0400 Systolic blood pressure 156 mm[Hg] Tevin NILL [facility] [place] 06-09-2022 15:10-0500 Blood Pressure Location SAMANTHA MICHAEL [facility] 06-09-2022 15:10-0500 Diastolic blood pressure 74 mm[Hg] SAMANTHA MICHAEL [facility] 06-09-2022 15:10-0500 Heart rate 68 /min SAMANTHA MICHAEL [facility] 06-09-2022 15:10-0500 Respiratory rate 16 /min SAMANTHA MICHAEL [facility] 06-09-2022 15:10-0500 Systolic blood pressure 138 mm[Hg] SAMANTHA MICHAEL [facility] 12-22-2021 15:10-0400 Blood Pressure Location Ted CEJA [facility] 12-22-2021 15:10-0400 Diastolic blood pressure 88 mm[Hg] Ted CEJA [facility] 12-22-2021 15:10-0400 Heart rate 86 /min Ted CEJA [facility] [place] 12-22-2021 15:10-0400 Systolic blood pressure 179 mm[Hg] Ted CEJA [facility] [place] 11-27-2021 10:25-0400 Blood Pressure Location Ted CEJA [facility] 11-27-2021 10:25-0400 Diastolic blood pressure 67 mm[Hg] Ted CEJA [facility] 11-27-2021 10:25-0400 Heart rate 71 /min Ted CEJA [facility] 11-27-2021 10:25-0400 Respiratory rate 16 /min Ted CEJA [facility] [place] [facility] 11-27-2021 10:25-0400 Systolic blood pressure 139 mm[Hg] [facility] CE[facility] Encounters Encounter Date Encounter Type Care Provider Facility Start: 06-25-2024 ambulatory [place] [facility] [place] [place] Start: 06-20-2023 End: 06-21-2023 ambulatory Ted CEJA Facility:[facility] Start: 06-20-2023 End: 06-20-2023 Patient encounter procedure [facility] CEJA [facility] Start: 01-31-2023 End: 01-31-2023 ambulatory Imad Asaad Other [facility] Other Start: 01-31-2023 Telephone encounter Imad Asaad [facility] Start: 01-18-2023 End: 01-18-2023 ambulatory Imad Asaad Facility:[facility] Start: 01-18-2023 End: 01-18-2023 ambulatory MD Veronica Adame Work Phone: [facility] Work Phone: Start: 01-18-2023 End: 01-18-2023 Patient encounter procedure MD Veronica Adame Work Phone: [facility] [place] Work Phone: Start: 01-16-2023 End: 01-16-2023 ambulatory MD Veronica Adame Work Phone: [facility] Work Phone: Start: 01-16-2023 End: 01-16-2023 Patient encounter procedure MD Veronica Adame Work Phone: [facility] [place] Work Phone: Start: 01-12-2023 End: 01-12-2023 Patient encounter procedure MD Veronica Adame Work Phone: [facility] [place] Work Phone: Start: 01-12-2023 End: 01-12-2023 ambulatory MD Veronica Adame Work Phone: [facility] Work Phone: Start: 01-12-2023 Office outpatient ne w 45 minutes Imad Asaad [facility] Start: 12-13-2022 End: 12-14-2022 ambulatory Ted CEJA Facility:[facility] [place] Start: 10-06-2022 End: 10-07-2022 ambulatory Tevin PURDY Facility: [place] Start: 09-29-2022 End: 09-30-[address] TEVIN PURDY . Facility: Start: 09-22-2022 End: 09-23-2022 ambulatory Tevin R FILIBERTOL Facility: [place] Start: 09-22-2022 End: 09-22-2022 Patient encounter procedure Tevin R FILIBERTOL [facility] [place] Start: 09-06-2022 ambulatory Tevin R NILL Facility : [place] Start: 06-09-2022 End: 06-09-2022 Patient encounter procedure SAMANTHA RODRIGUEZ [facility] [place] Start: 03-29-2022 End: 03-30-2022 ambulatory [facility] Start: 03-08-2022 ambulatory [facility] Start: 02-23-2022 Evaluation and management of inpatient [facility] Start: 02-23-2022 Evaluation and management of inpatient [facility] Start: 02-22-2022 End: 02-24-2022 Evaluation and management of inpatient [facility] Start: 02-19-2022 End: 02-19-2022 ambulatory [facility] Start: 02-19-2022 End: 02-19-2022 Encounter for other preprocedural examination [facility] Start: 02-01-2022 Encounter for other preprocedural examination [facility] Start: 01-13-[address] VERONICA ADAME . Facili ty:[facility] Start: 12-25-2021 End: 12-28-[address] VERONICA ADAME . Facility: Start: 12-22-2021 End: 12-22-2021 Patient encounter procedure Ted CEJA [facility] Start: 11-27-2021 End: 11-27-2021 Patient encounter procedure Ted CEJA [facility] [place] Start: 11-25-2021 ambulatory VERONICA ADAME Facility:[facility] Start: 11-23-2021 End: 11-24-[address] FRANCIE ARREGUIN Facility: Start: 11-02-2021 End: 11-03-2021 ambulatory VERONICA ADAME Facility:[facility] Start: 10-15-2021 End: 10-16-[address] VERONICA ADAME . Facility: Start: 10-06-2021 End: 10-06-2021 Patient encounter procedure SAMANTHA RODRIGUEZ [facility] [place] Start: 07-07-2021 End: 07-08-2021 ambulatory VERONICA ADAME Facility:[facility] Procedures Date Procedure Procedure Detail Performing Clinician Start: 09-29-2022 Colonoscopy Ted FAB LANDIS Start: 09-29-2022 Esophagogastroduodenoscopy Ted CEJA Start: 12-22-2021 Cystoscopy Ted FAB CALLEPatricia Bypass of stomach Ted LANDIS Carotid endarterectomy Jeramy PURDY Coronary artery bypass graft SAMANTHA RODRIGUEZ Cystoscopy SAMANTHA RODRIGUEZ Comment on above: 2006 Endarterectomy SAMANTHA Tesfaye Placement of stent SAMANTHA RODRIGUEZ Replacement of aortic valve SAMANTHA RODRIGUEZ Plan of Treatment Date Care Activity Detail Author Start: 01-18-2023 Stool culture Stool Culture [facility] Start: 01-16-2023 Ova and Parasite Concentrate Exam Ova and Parasite Concentrate Exam [facility] Bacteria identified in Stool by Culture [facility] Calprotectin [Mass/m ass] in Stool [facility] Elastase.pancreatic [Mass/mass] in Stool [facility] Ova and parasites identified in Unspecified specimen by Light microscopy [facility] Immunizations Immunization Date Immunization Notes Care Provider Elier stahl 05-12-2021 influenza virus vaccine, unspecified formulation SAMANTHA MICHAEL [facility] 05-12-2021 SARS-CoV-2 (COVID-19 ) mRNA-1273 vaccine SAMANTHA MICHAEL [facility] 11-11-2020 SARS-CoV-2 (COVID-19 ) mRNA BNT-162b2 vax SAMANTHA MICHAEL [facility] 10-20-2020 SARS-CoV-2 (COVID-19 ) mRNA BNT-162b2 vax SAMANTHA MICHAEL [facility] 02-25-2020 influenza virus vaccine, unspecified formulation SAMANTHA MICHAEL [facility] 03-10-2017 influenza virus vaccine, unspecified formulation SAMANTHA MICHAEL [facility] 02-19-2016 influenza virus vaccine, unspecified formulation SAMANTHA MICHAEL [facility] 02-19-2009 influenza, whole SAMANTHA PE RRY [facility] Payers Date Payer Category Payer Self-pay 2016 Unknown [id number] 1961 Medicare [id number] 1961 Self-pay [id number] 1959 Unknown [id number] 1940 Unknown [id number] 1940 Unknown [id number] 2.16.840.1.771980.3.579.2.647 1940 Unknown [id number] 2.16.840.1.420416.3.579.2.647 1940 Unknown [id number] 2.16.840.1.320583.3.579.2.593 1940 Unknown [id number] 2.16.840.1.772446.3.579.2.593 1940 Unknown [id number] 2.16.840.1.326415.3.579.2.593 1940 Unknown [id number] 2.16.840.1.256888.3.579.2.593 1938 Unknown [id number] 2.16.840.1.992445.3.579.2.593 1938 Unknown [id number] 2.16.840.1.289885.3.579.2.727 1938 Unknown [id number] 2.16.840.1.085420.3.579.2.727 1938 Unknown [id number] 2.16.840.1.794290.3.579.2.72 1940 Unknown [id number] 2.16.840.1.265123.3.579.2.727 1938 Unknown [id number] 2.16.840.1.324602.3.579.2.727 1940 Unknown [id number] 2.16.840.1.395363.3.579.2.727 1940 Unknown [id number] 2.16.840.1.693021.3.579.2.727 Private Health Insurance [employer] [facility] M [id number] Unknown [id number] 2.16.840.1.121350.3.579.2.531 Unknown [id number] 2.16.840.1.946723.3.579.2.531 Unknown [id number] 2.16.840.1.900676.3.579.2.531 Social History Date Type Detail Facility Tobacco smoking status [facility] Sex Assigned At Male [facility] Start: 11-27-2021 End: 09-22-2022 Tobacco smoking status Ex-smoker (finding) [facility] Tobacco smoking status Never [facility] Start: 1940 Sex Assigned At Male F [facility] Functional Status Date Assessment Result Facility 06-20-2023 Functional Status N/A [facility] 09-22-2022 Functional Status N/A [facility] 06-09-2022 Functional Status N/A [facility] 12-22-2021 Functional Status N/A [facility] 11-27-2021 Functional Status N/A [facility] Clinical Notes 09-08-2021 to 06-20-2023 Note Date & Type Note Facility 06-20-2023 Hospital Discharge instructions Patient Education 06/20/2023 16:02:32 Benign Prostatic Hyperplasia Benign Prostatic Hyperplasia Benign prostatic hyperplasia (BPH) is an enlarged prostate gland that is caused by the normal aging process. The prostate may get bigger as a man gets older. The condition is not caused by cancer. The prostate is a walnut-sized gland that is involved in the production of semen. It is located in front of the rectum and below the bladder. The bladder stores urine. The urethra carries stored urine out of the body. An enlarged prostate can press on the urethra. This can make it harder to pass urine. The buildup of urine in the bladder can cause infection. Back pressure and infection may progress to bladder damage and kidney (renal) failure. What are the causes? This condition is part of the normal aging process. However, not all men develop problems from this condition. If the prostate enlarges away from the urethra, urine flow will not be blocked. If it enlarges toward the urethra and compresses it, there will be problems passing urine. What increases the risk? This condition is more likely to develop in men older than 50 years. What are the signs or [...] urethra. Follow these instructions at home: Take [id number] and prescription medicines only as told by your health care provider. Monitor your symptoms for any changes. Contact your health care provider with any changes. Avoid drinking large amounts of liquid before going to bed or out in public. Avoid or reduce how much caffeine or alcohol you drink. Give yourself time when you urinate. Keep all follow-up visits. This is important. Contact a health care provider if: You have unexplained back pain. Your symptoms do not get better with treatment. You develop side effects from the medicine you are taking. Your urine becomes very dark or has a bad smell. Your lower abdomen becomes distended and you have trouble passing urine. Get help right away if: You have a fever or chills. You suddenly cannot urinate. You feel light-headed or very dizzy, or you faint. There are large amounts of blood or clots in your urine. Your urinary problems become hard to manage. You develop moderate to severe low back or flank pain. The flank is the side of your body between the ribs and the hip. These symptoms may be an emergency. Get help right away. Call 911. Do not wait to see if the symptoms will go away. Do not drive yourself to the hospital. Summary Benign prostatic hyperplasia (BPH) is an enlarged prostate that is caused by the normal aging process. It is not caused by cancer. An enlarged prostate can press on the urethra. This can make it hard to pass urine. This condition is more likely to develop in men older than 50 years. Get help right away if you suddenly cannot urinate. This information is not intended to replace advice given to you by your health care provider. Make sure you discuss any questions you have with your health care provider. Document Revised: 11/18/2021 Document Reviewed: 11/18/2021 [facility] Patient Education 2022 [employer]. Follow Up Care 12/13/2022 16:29:24 With:BRENNA LUU, Ted Echavarria, URL Address: [facility] [address] , [place] [address]- [phone] When: Unknown Comments:1 yr [facility] [place] 01-12-2023 Evaluation note Encounter Date Diagnosis Assessment Notes Dec, Fecal incontinence (ICD-10 - R15.9) Dec, Constipation, unspecified constipation type (ICD-10 - K59.00) [facility] Other 05-10-2023 NoteChief Complaint consultation for loose [...] SBE prophylaxis; no fmhx of GI malig hkadijah or IBD; no tobacco use. Review of [...] stenosis Spinal stenosis o (more content not included)...[facility] Comment on above:Result Comment: Electronically Signed By: GURWINDER LUU, Tevin Leiva\Date and Time Signed: 09/22/22 15:44 [id number] Hospital Discharge instructions Patient Education 06/09/2022 15:29:32 Prostatitis, Pbtj-xd-Ovae Prostatitis Prostatitis is swelling of the prostate gland. The prostate helps to make semen. It is below a man's bladder, in front of the rectum. There are different types of prostatitis. Follow these instructions at home: Take tegm-ljk-djgbbbt and prescription medicines only as told by [...] 10/31/2012 Document Revised: 04/14/2018 Document Reviewed: 01/20/2017 [facility] Patient Education 2020 [employer]. 06/09/2022 15:29:30 Benign Prostatic Hyperplasia Benign Prostatic [...] urethra. Follow these instructions at home: Take mzpj-pfk-dkxipvg and prescription medicines only as told by [...] 05/02/2006 Document Revised: 03/27/2019 Document Reviewed: 06/06/2017 [facility] Patient Education 2020 [employer]. Follow Up Care 06/03/2022 09:55:30 With:MICHAEL MOROCHO, SAMANTHA Diego, URL Address: [address] [place] [address] When:Within 6 Month(s) [facility] 11-14-2022 NoteSubjective Patient ID: Patrick Rutherford is [...] the past 36 hour(s)). No follow-ups on file.[facility]10-24-2022 Note Subjective Patient ID: Patrick Rutherford [...] the past 36 hour(s)). No follow-ups on file.[facility]10-12-2022 NotePatient will be going to [facility] at 6pm tonight. Spoke with the patient and his granddaughter about the discharge time. [facility]10[facility]12[facility]10-12-2022 [facility] accepting. Sent therapy notes. Patient has received the covid vaccine but not the boosters.[facility]10-12-2022 Note02/24/22 1421 Time Calculation Start Time 1145 Stop Time 1205 Time Calculation (min) 20 min PT Evaluation Time Entry PT Evaluation (Moderate) Time Entry 20 Discharge recommendations: NAPOLEON Schwartz Krish is a 81 y.o. male Right carotid stenosis presented today to undergo TCA 02/22. 02/24/22 1145 PT Last Visit PT Received On 02/24/22 General Subjective Pot Press Operator notes BLE tremor and truncal tremor w/ standing, and mild to moderate gait ataxia. Patient states this has occurred for about a year. Has not discussed w/ MD. States occurs at home as well as during hospital stay. Pot Press Operator suggests pt see neurologist d/t Parkinsonian symptoms. [...] Layout One level Prior Function Level of Couch Independent with ADLs and functional transfers (ambulates w/ cane) Homemaking Assistance Needs assistance (Patient's son has caregivers for physical care; staff also manages tongue lining stitcher including cooking. prepares light meals w/o cooking) [...] Frequency (5x/wk and PRN) PT Discharge Recommendations senior care facility placement PT - OK to Discharge Yes Antonia Torre PT, MPT [facility] 02-24-2022 NoteOccupational Therapy Occupational Therapy Evaluation Patient Name: Patrick Rutherford Today's Date: 02/24/2022 Time In: 1145 Time Out: 1205 OT Discharge Recommendations: senior care facility placement General Visit Information: General Subjective: Pt pleasant and cooperative. Pt GRAND TRAVERSE and requires repitition during communication. Pt typically [...] Lives With: Spouse, Son (Son is handicapped. Machine Programmer/GARMENT EXAMINER provides assistance to son and completes household tasks and IADLs.) Home Adaptive Equipment: Cane, Walker rolling Home Layout: One level Home Access: Ramped entrance Bathroom Shower/Tub: Walk-in shower Bathroom Toilet: Handicapped height Bathroom Equipment: None Prior Level of Function Prior Function ADL Assistance: Independent Homemaking Assistance: Needs assistance (Machine Programmer/GARMENT EXAMINER provides assistance with household tasks: cleaning, cooking, [...] all the time H (more content not included)...[facility]10-12-2022 NoteMet with the patient. He lives with his and son in a one story home with no steps to enter. He has a cane. He is active with [employer]. Called his family member Dina with his approval. She would like for him to try for [facility], [facility] and [facility] in [place] at discharge. Sent referrals to all listed. 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 Pertinent Physical Exam [...] Center 03/08/2022 2:30 PM EDELMIRA Teague HVCVASENDO PA [facility] 03/17/2022 10:00 AM Nichelle Mathew NP CARD [facility] Test Results Pending At Discharge None Completed by ALLEN Beverly (more content not included)...[facility]10-11-2022 NoteUnACMC [facility] Vascular Surgery DAILY PROGRESS NOTE Subjective No [...] ICA/CCA ratio. Antegrade vertebral artery flow. Assessment/Plan Oral Efren Rutherford is a 81 y.o. male whom is POD #1 from [facility]. Continue cardiac diet Home medications restarted Patient feels he is unsteady on his feet and requests PT/OT consult- order placed DC art line and love PRN pain and nausea medications Incentive spirometry Ambulate/OOB DVT ppx: subcu hep Ashley Gomez MD General Surgery Resident, PGY-2 I can be reached via [employer] 6a-6pUnBrecksville [facility]10-11-2022 NotePt taken to room per transport, WARREN Koch receiving pt updated on event prior to sending pt to roomUnBrecksville [facility]10-11-2022 NoteEkg completed, vascular notified of left bundle branch block on test, ok to sent pt to room 5140 at this time, no s/sx distress noted with pt.[facility]10-11-2022 NotePt c/o chest pressure/heart rate feeling slow, vs wnl, notified vascular, at bedside, will place orders for ekg/trop. Pt w/o s/sx distress notedUnBrecksville [facility]10-11-2022 NoteSpoke with Ashley with vascular update given on mag level of 1.4, will place orders for replacementUnBrecksville [facility]10-11-2022 NotePatient asymptomaticUnBrecksville [facility]10-11-2022 EDELMIRA Phillips notified of new scant blood noted to dressing, no new orders at this time, will continue to monitorUnBrecksville [facility]10-10-2022 Note Patient: Patrick Rutherford Procedure Summary Date: 02/22/22 Room / Location: [address] / [facility] Operating Room Anesthesia Start: 1526 Anesthesia Stop: 1740 Procedure: Right Transcarotid Artery [...] events for this encounter. Lizz Larsen MD Data Deliverables Manager PGY-2 02/22/2022 5:42 PMUnBrecksville VA [facility]10-10-2022 NoteArterial Line: Date/Time: 02/22/2022 3:55 PM [...] procedure well with no complications. Staffing Performed: resident/LANDSCAPE PHOTOGRAPHER/CAA Resident/LANDSCAPE PHOTOGRAPHER: Lizz Larsen MDUnBrecksville [facility]10-10-2022 NoteAirway Date/Time: 02/22/2022 3:38 PM Urgency: elective Airway not difficult General Information and Staff Patient location during procedure: OR Anesthesiologist: Kwabena Meza MD Resident/LANDSCAPE PHOTOGRAPHER/CAA: Lizz Larsen MD Performed: resident/LANDSCAPE PHOTOGRAPHER/CAA and other anesthesia staff Indications and Patient [...] of other approaches attempted: 0 Additional Comments Randal Guillory student performed intubationOhio State East Hospital10-10-2022 NotePatient: Oral M Rutherford Procedure Information Date/Time: 02/22/22 1445 Procedure: Right Transcarotid Artery Revascularization vs Right Carotid Endarterectomy (Right) Location: [facility] OR [address] [place] [address] / [facility] Operating Room Surgeons: Jazz Diamond MD [...] with resident and medical student. Additional Equipment RequestsOhio State East Hospital08-09-2022 Hospital Discharge instructions Patient Education 12/22/2021 [...] urethra. Follow these instructions at home: Take gdev-bek-uyrcvdw and prescription medicines only as told by [...] 05/02/2006 Document Revised: 03/27/2019 Document Reviewed: 06/06/2017 [facility] Patient Education 2020 [employer]. Follow Up Care 12/09/2021 11:45:24 With:BRENNA LUU, ABRIL Bernal Address: [facility] [address] , [place] [address]- When:Within 3 Month(s) [facility] 07-15-2022 Hospital Discharge instructions Patient Education 11/27/2021 [...] alcohol may irritate the prostate. Medicines Take cvtm-qzv-druzxyx and prescription medicines only as told by [...] 01/28/2005 Document Revised: 04/14/2018 Document Reviewed: 02/16/2018 [facility] Patient Education 2020 [facility] Follow Up Care 10/26/2021 11:31:21 With:Ted CEJA MD, URL Address: [address] [place] [address] [place] [address]- When: Unknown [facility] 04-26-2022 Hospital Discharge instructions Follow Up Care 09/08/2021 15:16:10 With:SAMANTHA RODRIGUEZ PA-C, URL Address: [address] [place] [phone] When: Unknown [facility] Evaluation + Plan note No data available for this section [facility] Evaluation + Plan note Future Appointments Appointment Date:03/01/2022 01:15:00 PM Scheduled Provider:Ted CEJA MD Location:[facility] Appointment Type:URO Office Visit [facility] Evaluation + Plan note Future Appointments Appointment Date:12/13/2022 03:00:00 PM Scheduled Provider:Ted CEJA MD Location:[facility] Appointment Type:URO Office Visit [facility] evaluation + Plan note Future Appointments Appointment Date:06/25/2024 03:00:00 PM Scheduled Provider:Ted CEJA MD Location:[facility] Appointment Type:URO Office Visit Future Scheduled Tests Laboratory* Creatinine 10/06/22 Radiology* CT Abdomen/Pelvis w/ Contrast 10/06/22 [facility] [email or web address] noteNo assessment information available [facility] Work Phone: [email or web address] noteNo InformationNort Context Relevant Other History general Narrative - Reported* Type Description Date Medical History Diabetes Medical History HTN (hypertension) Medical History Hypercholesteremia Medical History Enlarged prostate Medical History Hypothyroid Surgical History C Artery Surgical History heart stent Surgical History carotid see Surgical History Stent x 1 Heart Surgical History Stent x 1 neck Surgical History triple bypass 08/2016 Hospitalization History see above [facility] Other Hospital Discharge instructions No data available for this section General Surgery [employer] [place] note No data available for this section [facility] Summary Purpose Family History No Family History Records FoundNo Family History Records FoundNo Family History Records FoundNo Family History Records Found No data available for this section No Family History Records Found Advance Directives No Advanced Directives Records Found Advance Directive Response Recorded Date/ Time Advance Directives No January 12, 2023 3:17pm Chief Complaint and Reason for Visit Chief Complaint K59.00 Chief Complaint K59.00 k59.00 k59.00 Additional Source Comments Care Team (unrecognized sect ion and content) Team Status: Active Member Role Status Dates Veronica Adame MD Primary Care Provider Active Team Status: Inactive Member Role Status Dates Veronica Adame MD Primary Care Provider Active Lamin Thomason MD Attending Provider Active (unrecognized sect ion and content) No Status Records FoundNo Status Records FoundNo Status Records FoundNo Status Records FoundNo Status Records Found INFORMATION SOURCE (unrecogn ized section and content) DATE CREATED AUTHOR 12/01/2021 [facility] DATE CREATED AUTHOR AUTHOR'S ORGANIZ ATION 04/09/2022 [facility] DATE CREATED AUTHOR AUTHOR'S ORGANIZ ATION 09/29/2022 [facility] DATE CREATED AUTHOR AUTHOR'S ORGANIZ ATION 02/05/2023 [facility] DATE CREATED AUTHOR AUTHOR'S ORGANIZ ATION 06/21/2023 [facility] REASON FOR VISIT (unrecogniz ed section and [...] BE BASED ON THE PRIMARY CLINICAL RECORDS. [facility], [facility]. provides no warranty or guarantee of the accuracy or completeness of information in this document.
--- NOTE | 2023-12-14 15:23 | XR_ITS ---
The [address] [address] Patient Name: BROOKLYN ELY MRN: [id number] date: 1940 Sex: M Assigned Patient Location: LAB Current Patient Location: Accession/Order Number: [id number] Exam Date: 12/14/2023 15:16 Report Date: 12/15/2023 06:46 At the request of: VERONICA ADAME Procedure: XR knee RT 3V PROCEDURE: XR knee RT 3V HISTORY: Right Knee Pain M25.561 ; no known injury COMPARISON: None. FINDINGS: BONES:Large separate ossification involving the superior lateral corner of the patella with corticated margins. No convincing acute fracture. No significant joint space narrowing or articular surface irregularity or periarticular osteophytes. SOFT TISSUES:No visible soft tissue swelling. EFFUSION:None visible. OTHER: Negative. XR/XR knee RT 3V IMPRESSION: 1. Separate ossification involving superior lateral corner of patella favoring sequela of remote fracture or an ununited secondary ossification center. Acute fracture is felt less likely. 2. Minimal degenerative joint disease. Electronically authenticated by: PAULA ALMAZAN Date: 12/15/2023 06:46
== END 2023-12-14 15:09 | disposition home or self-care (01) ==
LOC: LAB 15:09
PROVIDERS: PCP Family Medicine; Visit Provider Family Medicine
DX: M25.561 Pain in right knee (principal); M17.11 Unilateral primary osteoarthritis, right knee
CPT/HCPCS: 73562

== ENCOUNTER 2023-12-27 15:56 | Outpatient (OUT) | payer MEDICARE, BC, SELFPAY ==
--- NOTE | 2023-12-27 | XR_ITS ---
The [place] [id number] Patient Name: BROOKLYN ELY MRN: [id number] date: 1940 Sex: M Assigned Patient Location: RAD Current Patient Location: [facility] Accession/Order Number: [id number] Exam Date: 12/27/2023 16:15 Report Date: 12/29/2023 13:54 At the request of: VERONICA ADAME Procedure: XR lumbar spine min 4V EXAMINATION: XR lumbar spine min 4V HISTORY: Lumbar Radiculopathy M54.16 COMPARISON: MRI lumbar spine 05/13/2021 FINDINGS: BONES: Moderate compression fracture involving superior endplate of L1. 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 DISC SPACES: Complete loss of the L4-5 disc space. Mild narrowing L5-S1. PARASPINOUS: Atherosclerotic disease of aorta. OTHER: Negative. XR/XR lumbar spine min 4V IMPRESSION: 1. Moderate compression fracture of L1; age indeterminant but suspected to be acute to subacute. 2. Stable grade 2 anterolisthesis of L5 on S1 but likely progression of marked degenerative disc disease. Electronically authenticated by: PAULA ALMAZAN Date: 12/29/2023 13:54
--- OUTSIDE RECORDS SUMMARY | 2023-12-27 16:18 | XMS_ITS | CCD ---
Author Organization [facility] CliniSyct Care Team Providers Care Busser Name Role Phone Veronica Adame Primary Care Physician VERONICA ADAME Primary Care Unavailable NAZZAL, MUNIER [...] Unavailable MD Veronica Adame Primary Care Provider [phone] MD Lamin Thomason Attending Provider Asaad, [...] Date of Onset Reaction(s) Facility (1 source) 89513,00; Translations: [12830,00] Propensity to adverse reactions (disorder) 9 [facility] Repository (1 source) No Known Medication Allergies; Translations: [No Known Medication Allergies] Propensity to adverse reactions (disorder) [facility] Repository Medications Current Medications Medication Drug Class(es) Dates Sig (Normalized) Sig (Original) amLODIPine 10 mg oral tablet (2 sources) Dihydropyridine Calcium Channel Gerry take 1 tablet by mouth every twenty-four hours amLODIPine Besylate 10 MG 1 tablet Orally Once a day Active amylase 366470 unt / lipase 62950 unt / protease 158420 unt delayed release oral capsule (1 source) Start: 01-31-2023 Creon [id number] UNIT 2 CAPSULES WITH MEALS. 1 WITH [...] BID, # 28 cap(s), Refills(s) 0, Pharmacy: [address], 168, cm, 11/27/21 10:35:00 EDT, Height/Length [...] Start: 11-27-2021 take 1 capsule by [facility] once daily dutasteride 0.5 mg Cap [...] Ordered Start: 02-01-2019 take 1 tablet by [facility] once daily glimepiride 4 mg Tab 4 [...] cap(s), Refills(s) 3, Pharmacy: [facility] ), 167.6, cm, 09/22/22 14:29:00 EDT, Height/Length Dosing, 77.3, kg, 12/13/22 15:47:00 EDT, Weight Dosing Start Date: 12/13/22 Stop Date: 12/08/23 Status: Ordered Start: 02-01-2019 take 1 capsule by [facility] once daily tamsulosin 0.4 mg Cap [...] Onset: 01-05-2022 Episodic Other aftercare (1 source) 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 Take rolo-moz-ysclnmb and prescription medicines only as told by [...] the medicine (more content not included)... Normal [facility] Urology Office/Clinic Noteon 06-20-2023 Urology Office/Clinic Note [...] Urology [address] , [place] [address]- [phone] Additional Instructions: 1 yr Patient Education Benign [...] refills glime (more content not included)... Normal [facility] Comment on above: Result Comment: Elec tronically Signed By: Ted CEJA MD\.br\Date and Time Signed: 06/20/23 16:04 EST\.br\Electronically Co-Signed By: Wilda Choudhary\.br\Date and Time Co-Signed: 06/20/23 16:03 EST Consultation Noteon 01-20-20 23 Consultation Note [id number]:127 [facility] Stool Cultureon 01-18-2023 Stool culture [...] or E. coli 0157:H7 Isolated PERFORMED BY: [place] [address] PATHOLOGIST CRUISE COUNSELOR SUMAN HAY M.D. [facility] Comment on above: Performed By: #### C USTOOL #### [place] [address] [place] Calprotectin, Fecalon 2022 Calprotectin, Fecal 78 Normal 0-120 [facility] Comment on above: Order Comment: Reaso n for Exam Constipation, unspecified constipation type Result Comment: Conc entration Interpretation Follow-Up < 5 - 50 ug/g Normal None >50 -120 ug/g Borderline Re-evaluate in 4-6 weeks >120 ug/g Abnormal Repeat as clinically indicated Performed at: [facility] [address] [id number] Roving Changer: Miguel Avilez MD, Phone: [phone] PERFORMED BY: [place] [address] PATHOLOGIST CRUISE COUNSELOR SUMAN HAY M.D. Performed By: #### O [...] possibility of a parasitic infection. Performed at: [address] [id number] Roving Changer: Igor Roque PhD, Phone: [phone] PERFORMED BY: [place] [address] PATHOLOGIST CRUISE COUNSELOR SUMAN HAY M.D. [facility] Comment on above: Performed By: #### O PEXAM, CALPROTECT, ELASTASE STOOL #### [facility] , Pancreatic Elastase, Stoolon 01-16-2023 Pancreatic Elastase, Stool 150 Low >200 [facility] Comment on above: Order Comment: Reaso n for Exam Constipation, unspecified constipation type Result Comment: Resu lt Units: ug Elast./g Severe Pancreatic Insufficiency: <100 Moderate Pancreatic Insufficiency: 100 - 200 Normal: >200 Performed at: [facility] [address] [id number] Roving Changer: Miguel Avilez MD, Phone: [phone] PERFORMED BY: [place] [address] PATHOLOGIST CRUISE COUNSELOR SUMAN HAY M.D. Performed By: #### O PEXAM, CALPROTECT, ELASTASE STOOL #### [facility] , C reactive protein [Mass/vol ume] in Serum or PlasmaOrdered By: Imad Asaad on 01-12-2023 CRP [Mass/Vol] < 0.5 mg/dL 0.0-0.5 [facility] C-Reactive Proteinon 023 CRP [Mass/Vol] mg/L Normal 0.0-0.5 [facility] Comment on above: Order Comment: Reaso n for Exam Constipation, unspecified constipation type Performed By: #### T SH3, ESR, CRP #### [facility] [address] [place] [address] #### CELIAC, HIV SCREEN #### [facility] , Celiacon 01-12-2023 Deamidated Gliadin Abs, IgA 10 Normal 0-19 [facility] Comment on above: Order Comment: Reaso n for Exam Constipation, unspecified constipation type Result Comment: Nega tive 0 - 19 Weak Positive 20 - 30 Moderate to Strong Positive >30 Performed By: #### T SH3, ESR, CRP #### [facility] [address] [place] [address] [place] #### CELIAC, HIV SCREEN #### [facility] , Deamidated Gliadin Abs, IgG 2 Normal 0-19 [facility] Comment on above: Order Comment: Reaso n for Exam Constipation, unspecified constipation type Result Comment: Nega tive 0 - 19 Weak Positive 20 - 30 Moderate to Strong Positive >30 Performed By: #### T SH3, ESR, CRP #### [facility] [address] [place] [address] [place] #### CELIAC, HIV SCREEN #### [facility] , Endomysial Antibody IgA Negative Normal Negative [facility] Comment on above: Order Comment: Reaso n for Exam Constipation, unspecified constipation type Performed By: #### T SH3, ESR, CRP #### [facility] [address] [place] [address] #### CELIAC, HIV SCREEN #### [facility] , Immunoglobulin A, Qn, Serum 437 mg/dL Normal 61-437 [facility] Comment on above: Order Comment: Reaso n for Exam Constipation, unspecified constipation type Result Comment: Perf ormed at: - [facility] [place] [id number] Roving Changer: Igor Roque PhD, Phone: [phone] Performed By: #### T SH3, ESR, CRP #### [address] #### CELIAC, HIV SCREEN #### [facility] , T-Transglutaminase (tTG) IgA <2 Normal 0-3 [facility] Comment on above: Order Comment: Reaso n for Exam Constipation, unspecified constipation type Result Comment: Nega tive 0 - 3 Weak Positive 4 - 10 Positive >10 Tissue Transglutaminase (tTG) has been identified as the endomysial antigen. Studies have demonstr- ated that endomysial IgA antibodies have over 99% specificity for gluten sensitive enteropathy. Performed By: #### T SH3, ESR, CRP #### [address] #### CELIAC, HIV SCREEN #### [facility] , T-Transglutaminase (tTG) IgG 5 Normal 0-5 [facility] Comment on above: Order Comment: Reaso n for Exam Constipation, unspecified constipation type Result Comment: Nega tive 0 - 5 Weak Positive 6 - 9 Positive >9 Performed By: #### T SH3, ESR, CRP #### [facility] [address] [place] [address] [place] #### CELIAC, HIV SCREEN #### [facility] , Erythrocyte Sedimentation Ra miguel 01-12-2023 ESR (Bld) [Velocity] 19 mm/h Normal 0-19 [facility] Comment on above: Order Comment: Reaso n for Exam Constipation, unspecified constipation type Result Comment: PERF ORMED BY: [place] [address] PATHOLOGIST CRUISE COUNSELOR SUMAN HAY M.D. Performed By: #### T SH3, ESR, CRP #### [address] #### CELIAC, HIV SCREEN #### [facility] , Erythrocyte sedimentation ra te by Photometric methodOrdered By: Imad Asaad on 01-12-2023 ESR Photometric method (Bld) [Velocity] 19 mm/hr 0-19 [facility] HIV 1/O/2 Antigen/Antibodyon 01-12-2023 HIV Screen 4th Generation Non-Reactive Normal Non Reactive [facility] Comment on above: Order Comment: Reaso n for Exam Constipation, unspecified constipation type Result Comment: HIV Negative HIV-1/HIV-2 antibodies and HIV-1 p24 antigen were NOT detected. There is no laboratory evidence of HIV infection. Performed at: [facility] [address] [place], [place] [id number] Roving Changer: Igor Roque PhD, Phone: [phone] PERFORMED BY: [place] [address] PATHOLOGIST CRUISE COUNSELOR SUMAN HAY M.D. Performed By: #### T SH3, ESR, CRP #### [address] #### CELIAC, HIV SCREEN #### [facility] , HIV 1 and HIV-2 antibody ass ay with HIV-1 p24 antigen detectionOrdered By: Imad Asaad on 01-12-2023 HIV 1+2 Ab+HIV1 p24 Ag IA Ql Non-Reactive Non Reactive [facility] Comment on above: HIV NegativeHIV-1/HI V-2 antibodies and HIV-1 p24 antigen were NOTdetected. There is no laboratory evidence of HIV infection.Performed at: [facility] [address] [id number] Director: Igor Roque PhD, Phone: [phone] IgA [Mass/volume] in Serum o r PlasmaOrdered By: Lamin Thomason on 01-12-2023 IgA [Mass/Vol] 437 mg/dL 61-437 [facility] Comment on above: Performed at: [address] [id number] Director: Igor Roque PhD, Phone: [phone] No Panel InformationOrdered By: Lamin Thomason on 01-12-2023 Endomysial IgA Antibody Negative Negative [facility] Serum gliadin peptide IgA an tibody assay (units/volume)Ordered By: [facility] on 01-12-2023 Gliadin peptide IgA Qn (S) 10 units 0-19 [facility] Comment on above: Negative 0 - 19 Weak Positive 20 - 30 Moderate to Strong Positive >30 Serum gliadin peptide IgG an tibody assay (units/volume)Ordered By: francois [facility] on 01-12-2023 Gliadin peptide IgG Qn (S) 2 units 0-19 [facility] Comment on above: Negative 0 - 19 Weak Positive 20 - 30 Moderate to Strong Positive >30 Serum tissue transglutaminas e (tTG) IgA antibody assay (units/volume)Ordered By: francois Thomason on 01-12-2023 tTG IgA Qn (S) <2 U/mL 0-3 [facility] Comment on above: Negative 0 - 3 Weak Positive 4 - 10 Positive >10 Tissue Transglutaminase (tTG) has been identified as the endomysial antigen. Studies have demonstr- ated that endomysial IgA antibodies have over 99% specificity for gluten sensitive enteropathy. Serum tissue transglutaminas e (tTG) IgG antibody assay (units/volume)Ordered By: francois Thomason on 01-12-2023 tTG IgG Qn (S) 5 U/mL 0-5 [facility] Comment on above: Negative 0 - 5 Weak Positive 6 - 9 Positive >9 Thyroid Stimulating Hormoneo n 01-12-2023 TSH Qn 1.54 m[IU]/L Normal 0.45-5.33 [facility] Comment on above: Order Comment: Reaso n for Exam Constipation, unspecified constipation type Result Comment: PERF ORMED BY: [place] [address] PATHOLOGIST CRUISE COUNSELOR SUMAN HAY M.D. 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 Take suia-goq-dlmbwud and prescription medicines only as told by [...] Where to find more information ? National [employer] of Diabetes and Digestive and Kidney Diseases: (more content not included)... Normal [facility] Urology Office/Clinic Noteon 12-13-2022 Urology Office/Clinic [...] Echavarria, URL [facility] [address] [place] [phone] Additional Instructions: 6 mos Patient Education Prostatitis [...] mg Oral (more content not included)... Normal [facility] Comment on above: Result Comment: Elec tronically Signed By: Ted CEJA MD\.br\Date and Time Signed: 12/13/22 16:29 EDT\.br\Electronically Co-Signed By: Wilda Choudhary\.br\Date and Time Co-Signed: 12/13/22 16:27 EDT RAD - CT Reporton 10-26-2022 RAD - CT Report [id number]#[id number]:127 Normal [facility] Lab Reportson 10-24-2022 Lab Reports [id number]#[id number]:127 Normal [facility] Ambulatory Visit Summaryon 0 10-06-2022 Ambulatory [...] LUU, Ted Echavarria Where: [facility] General Surgery Office/Clini c Noteon [...] Recorded inf (more content not included)... Normal [facility] Comment on above: Result Comment: Elec tronically Signed By: GURWINDER LUU, Tevin Leiva\Date and Time Signed: 10/06/22 16:12 EDT Outside Colonoscopyon 2022 Outside Colonoscopy [id number]:127 Normal [facility] POINT OF CARE GLUCOSEon 09-13 Glucose [Mass/Vol] 132 mg/dL Critically high 74-106 [facility] Comment on above: Performed By: #### P OCGLUC #### [facility] [address] [address] [address] Lety Torres Consent for Procedure/Surger yon 09-23-2022 Consent for Procedure/Surgery [id number]:127 [facility] Ambulatory Visit Summaryon 0 09-22-2022 Ambulatory [...] LUU, Ted Echavarria Where: [facility] Physician Referralon 023 Physician Referral [id number]:127 Normal [facility] Follow-Upon 03-29-2022 Follow-Up [id number] Patrick Rutherford M 1940 M Date Provider Department Center 03/29/2022 TRIPP DECKER JANETANGÉLICAMILEMIL [place] [facility] No family history on file Level of Service:45327 [place] POSTOP FOLLOW UP VISIT RELATED TO ORIGINAL PX Reason for Visit and Comments: Post-op [483] - TCAR follow up [facility] Office Visiton 03-08-2022 Follow-up visit [id number] KrishOral M 1940 M Date Provider Department Center 03/08/2022 TRIPP DECKER RAQUELEMIL [place] [facility] No family history on file Level of Service:69360 [place] POSTOP FOLLOW UP VISIT RELATED TO ORIGINAL PX Reason for Visit and Comments: Post-op [483] - Post op TCAR on 02/22/22 [facility] BASIC METABOLIC PANELon 02-13 Anion gap [Moles/Vol] 6 mmol/L Normal <=30 [facility] Comment on above: Performed By: #### L AB15 ####[facility] (BEAKER)[address] [place] [address] Calcium [Mass/Vol] 8.8 mg/dL Normal 8.6-10.3 [facility] Comment on above: Performed By: #### L [id number] ####[facility] ([facility]AKER)[address] [place] [address] Chloride [Moles/Vol] 108 mmol/L High 98-107 [facility] Comment on above: Performed By: #### L [id number] ####[facility] (BEAKER)[address] [place] [address] CO2 [Moles/Vol] 24 mmol/L Normal 21-31 [facility] Comment on above: Performed By: #### L [id number] ####[facility] (BEAKER)[address] [place] [address] Creatinine [Mass/Vol] 1.18 mg/dL Normal 0.70-1.30 [facility] Comment on above: Performed By: #### L [id number] ####[facility] ([facility])[address] [place] [address] GLOMERULAR FILTRATION RATE ML/MIN/1.73 SQ M.PREDICTED 56.7 mL/min/1.73m*2 Low >60.0 [facility] Comment on above: Result Comment: The [facility]???s estimated glomerular filtration rate (eGFR) will no [...] of individuals. Performed By: #### L AB15 ####[facility] ([facility])[address] [place] [address] Glucose [Mass/Vol] 56 mg/dL Low 70-100 [facility] Comment on above: Performed By: #### L [id number] ####[facility] ([facility])[address] [place] [address] Potassium [Moles/Vol] 3.9 mmol/L Normal 3.5-5.1 [facility] Comment on above: Performed By: #### L [id number] ####[facility] ([facility])[address] [place] [address] Sodium [Moles/Vol] 138 mmol/L Normal 136-145 [facility] Comment on above: Performed By: #### L [id number] ####[facility] ([facility])[address] [place] [address] Urea nitrogen [Mass/Vol] 20 mg/dL Normal 7-25 [facility] Comment on above: Performed By: #### L [id number] ####[facility] ([facility] [place] [address] UREA NITROGEN/CREATININE (MASS RATIO) IN SER/PLAS 16.95 Normal [facility] Comment on above: Performed By: #### L [id number] ####[facility] ([facility])[address] [address] CBCon 02-24-2022 Erythrocyte distribution width (RBC) [Ratio] 14.0 % Normal 11.5-15.0 [facility] Comment on above: Performed By: #### L [id number] ####[facility] ([facility])[address] [place] [address] ERYTHROCYTE MEAN CORPUSCULAR HEMOGLOBIN CONCENTRATION (G/DL) BY AUTOMATED 32.7 g/dL Normal 32.0-35.0 [facility] Comment on above: Performed By: #### L [id number] ####[facility] ([facility])[address] [place] [address] Hematocrit (Bld) [Volume fraction] 27.5 % Low 39.0-55.0 [facility] Comment on above: Performed By: #### L [id number] ####[facility] ([facility])[address] [place] [address] Hemoglobin (Bld) [Mass/Vol] 9.0 g/dL Low 13.0-17.0 [facility] Comment on above: Performed By: #### L [id number] ####[facility] ([facility])[address] [place] [address] MCH (RBC) [Entitic mass] 30.4 pg Normal 27.0-33.0 [facility] Comment on above: Performed By: #### L [id number] ####[facility] ([facility])[address] [place] [address] MCV (RBC) [Entitic vol] 92.9 fL Normal 82.0-98.0 [facility] Comment on above: Performed By: #### L [id number] ####[facility] ([facility])[address] [place] [address] PLATELETS (10*3/UL) IN BLOOD AUTOMATED COUNT 282 10*3/uL Normal 150-400 [facility] Comment on above: Performed By: #### L [id number] ####[facility] ([facility])[address] [place] [address] RBC (Bld) [#/Vol] 2.96 10*6/uL Low 4.20-5.70 [facility] Comment on above: Performed By: #### L [id number] ####[facility] ([facility])[address] [place] [address] WBC (Bld) [#/Vol] 9.28 10*3/uL Normal 4.00-10.60 [facility] Comment on above: Performed By: #### L [id number] ####[facility] ([facility])[address] [place] [address] MAGNESIUMon 02-24-2022 Magnesium [Mass/Vol] 1.9 mg/dL Normal 1.9-2.7 [facility] Comment on above: Performed By: #### L [id number] #### [facility] ([facility]) [address] [place] [address] NURSNOTEon 02-24-2022 NURSNOTE Attempted to call re port to [place] x2 with no pickup. RN will be happy to give report if facility chooses to call upon their receipt of the patient. Normal [facility] PHOSPHORUSon 02-24-2022 Magnesium [Mass/Vol] 4.7 mg/dL Normal 2.5-5.0 [facility] Comment on above: Performed By: #### L [id number] ####[facility] ([facility])[address] [place] [address] POCT GLUCOSE METER UNSOLICIT ED RESULTSon 02-24-2022 Glucose [Mass/Vol] 144 mg/dL High 70-105 [facility] Comment on above: Result Comment: [email or web address] Performed By: #### L [id number] ####[facility] (BEAKER)[address] [place] [address] Glucose [Mass/Vol] 196 mg/dL High 70-105 [facility] Comment on above: Result Comment: [email or web address] Performed By: #### L [id number] ####[facility] (BEAKER)[address] [place] [address] Glucose [Mass/Vol] 113 mg/dL High 70-105 [facility] Comment on above: Result Comment: [email or web address] Performed By: #### L [id number] ####[facility] (BEAKER)[address] [place] [address] BASIC METABOLIC PANELon 10- Anion gap [Moles/Vol] 7 mmol/L Normal <=30 [facility] Comment on above: Performed By: #### L [id number] ####[facility] (BEAKER)[address] [place] [address] Calcium [Mass/Vol] 9.1 mg/dL Normal 8.6-10.3 [facility] Comment on above: Performed By: #### L [id number] ####[facility] (BEAKER)[address] [place] [address] Chloride [Moles/Vol] 109 mmol/L High 98-107 [facility] Comment on above: Performed By: #### L [id number] ####[facility] (BEAKER)[address] [place] [address] CO2 [Moles/Vol] 22 mmol/L Normal 21-31 [facility] Comment on above: Performed By: #### L [id number] ####[facility] ([facility])[address] [place] [address] Creatinine [Mass/Vol] 0.88 mg/dL Normal 0.70-1.30 [facility] Comment on above: Performed By: #### L [id number] ####[facility] (BEAKER)[address] [place] [address] GLOMERULAR FILTRATION RATE ML/MIN/1.73 SQ M.PREDICTED 79.4 mL/min/1.73m*2 Normal >60.0 [facility] Comment on above: Result Comment: The [facility]???s estimated glomerular filtration rate (eGFR) will no [...] of individuals. Performed By: #### L [id number] ####[facility] ([facility])[address] [place] [address] Glucose [Mass/Vol] 91 mg/dL Normal 70-100 [facility] Comment on above: Performed By: #### L [id number] ####[facility] ([facility])[address] [place] [address] Potassium [Moles/Vol] 4.3 mmol/L Normal 3.5-5.1 [facility] Comment on above: Performed By: #### L [id number] ####[facility] ([facility])[address] [place] [address] Sodium [Moles/Vol] 138 mmol/L Normal 136-145 [facility] Comment on above: Performed By: #### L [id number] ####[facility] ([facility])[address] [place] [address] Urea nitrogen [Mass/Vol] 14 mg/dL Normal 7-25 [facility] Comment on above: Performed By: #### L [id number] ####[facility] ([facility])[address] [place] [address] UREA NITROGEN/CREATININE (MASS RATIO) IN SER/PLAS 15.91 Normal [facility] Comment on above: Performed By: #### L [id number] ####[facility] ([facility])[address] [place] [address] CBCon 02-23-2022 Erythrocyte distribution width (RBC) [Ratio] 14.3 % Normal 11.5-15.0 [facility] Comment on above: Performed By: #### L [id number] ####[facility] ([facility])[address] [address] ERYTHROCYTE MEAN CORPUSCULAR HEMOGLOBIN CONCENTRATION (G/DL) BY AUTOMATED 34.7 g/dL Normal 32.0-35.0 [facility] Comment on above: Performed By: #### L [id number] ####[facility] ([facility])[address] [place] [address] Hematocrit (Bld) [Volume fraction] 30.0 % Low 39.0-55.0 [facility] Comment on above: Performed By: #### L [id number] ####[facility] ([facility])[address] [place] [address] Hemoglobin (Bld) [Mass/Vol] 10.4 g/dL Low 13.0-17.0 [facility] Comment on above: Performed By: #### L [id number] ####[facility] ([facility])[address] [place] [address] MCH (RBC) [Entitic mass] 31.5 pg Normal 27.0-33.0 [facility] Comment on above: Performed By: #### L [id number] ####[facility] ([facility])[address] [place] [address] MCV (RBC) [Entitic vol] 90.9 fL Normal 82.0-98.0 [facility] Comment on above: Performed By: #### L [id number] ####[facility] ([facility])[address] [place] [address] PLATELETS (10*3/UL) IN BLOOD AUTOMATED COUNT 306 10*3/uL Normal 150-400 [facility] Comment on above: Performed By: #### L [id number] ####[facility] ([facility])[address] [place] [address] RBC (Bld) [#/Vol] 3.30 10*6/uL Low 4.20-5.70 [facility] Comment on above: Performed By: #### L [id number] ####[facility] [place] [address] WBC (Bld) [#/Vol] 10.55 10*3/uL Normal 4.00-10.60 [facility] Comment on above: Performed By: #### L [id number] ####[facility] ([facility])[address] [place] [address] Documentationon 02-23-2022 Documentation [id number] Rutherford,Oral M 1940 M Date Provider Department Center 02/23/2022 JENNIFER COYNE [facility] PACU [facility] No family history on file Normal [facility] MAGNESIUMon 02-23-2022 Magnesium [Mass/Vol] 1.4 mg/dL Low 1.9-2.7 [facility] Comment on above: Performed By: #### L [id number] ####[facility] ([facility])[address] [place] [address] NURSNOTEon 02-23-2022 NURSNOTE Last heparin dose gi christopher at 0042. 0600 dose rescheduled to 0900 , discussed with pharmacy. Normal [facility] NURSNOTE Tylenol given as ord ered, Pt received oral medication well without issue. Pt is able to swallow, and speak in full sentences without difficulty. Airway intact, no trach deviation noted. Normal [facility] PHOSPHORUSon 02-23-2022 Magnesium [Mass/Vol] 4.5 mg/dL Normal 2.5-5.0 [facility] Comment on above: Performed By: #### L [id number] ####[facility] ([facility])[address] [place] [address] POCT GLUCOSE METER UNSOLICIT ED RESULTSon 02-23-2022 Glucose [Mass/Vol] 99 mg/dL Normal 70-105 [facility] Comment on above: Result Comment: [email or web address] Performed By: #### L [id number] ####[facility] ([facility])[address] [place] [address] Glucose [Mass/Vol] 190 mg/dL High 70-105 [facility] Comment on above: Result Comment: [email or web address] Performed By: #### L [id number] ####[facility] ([facility])[address] [place] [address] Glucose [Mass/Vol] 108 mg/dL High 70-105 [facility] Comment on above: Result Comment: [email or web address] Performed By: #### L [id number] ####[facility] ([facility])[address] [place] [address] Glucose [Mass/Vol] 132 mg/dL High 70-105 [facility] Comment on above: Result Comment: [email or web address] Performed By: #### L [id number] ####[facility] ([facility])[address] [place] [address] PROTIME-INRon 02-23-2022 INR IN PPP BY COAGULATION ASSAY 1.08 Normal 0.90-1.10 [facility] Comment on above: Result Comment: ACCC P [...] CHEST 1995;108:231S-246S. Performed By: #### L [id number] ####[facility] ([facility])[address] [place] [address] PROTHROMBIN TIME (PT) IN PPP BY COAGULATION ASSAY 13.9 Seconds Normal 12.3-14.8 [facility] Comment on above: Performed By: #### L [id number] ####[facility] ([facility])[address] [place] [address] TROPONIN Ion 02-23-2022 Troponin I.cardiac [Mass/Vol] 0.02 ng/mL Normal 0.00-0.04 [facility] Comment on above: Result Comment: REFE RENCE RANGES: 0.00 - 0.14 ng/mL NEGATIVE 0.15 - 0.25 ng/mL INDETERMINATE > 0.25 ng/mL INDICATIVE OF AN M.I. Performed By: #### L [id number] ####[facility] ([facility])[address] [place] [address] XR CHEST 1 VIEWon 02-23-2022 XR CHEST 1 VIEW Single view chest History: Difficulty breathing, shortness of breath Comparison: 08/23/2016 Findings: Single portable view of the chest. Stable cardiomediastinal silhouette. There is atherosclerotic thoracic aorta. No focal consolidation large effusion or pneumothorax. IMPRESSION: No evidence of acute cardiopulmonary process. Electronically signed: Tevin Prieto. Normal [facility] CONSULTon 02-22-2022 CONSULT -------- Attestation signed by [...] - 81 y.o. - 1940 N - [id number] [facility] # - [id number] Date of Admission - 02/22/2022 12:06 PM [...] Coronary artery disease, COVID-19 (01/14/2022), Diabetes mellitus ([facility]), Fractures, GERD (gastroesophageal reflux disease), History of [...] PRN fentaNYL (more content not included)... Normal [facility] HPon 02-22-2022 [facility] General Surgery HISTORY & PHYSICAL Chief [...] angio w and wo IV contrast Narrative: [facility] Department of Radiology [address] [place] [id number] === (more content not included)... Normal [facility] NURSNOTEon 02-22-2022 NURSNOTE Vascular at bedside assessing patient. Vascular changed patient dressing. No new orders at this time. Evy Randhawa [employer]AR[employer] SOLDER LEVELER Normal [facility] NURSNOTE Since arrival to PAC U patients neck has measure 22 inch. Patient neck is now measuring 22.5 inches. Patient denies difficulty swallowing and difficulty breathing. Vascular team answered page from Jeremy (surgery) and is coming to see patient at bedside. Evy Randhawa [employer]AR[employer] LEVELER Normal [facility] REGINA Attempted to page va scular multiple time over the last half hour. Patients R side of neck feels firm and noted to have serosanguineous drainage on dressing. MICU doctor at bedside. Patient stable. Patient states no difficulty swallowing or breathing. MICU doctor states no new orders at this time and to continue to page vascular. Evy Randhawa [employer]AR[employer] SOLDER LEVELER Normal [facility] NURSCARLOS CONTRAST: 40ML 219 MGY 5.7 MIN Normal [facility] NURSNOTE ACT: 1618: BASELINE - 122 1647: ACT 212 1658: ACT 237 Normal [facility] OPNOTEon 02-22-2022 OPNOTE Right Transcarotid A rtery Revascularization (TCAR) Date: 02/22/2022 Location: [facility] OR Name: Patrick Rutherford, : 1940, [...] TCAR STENT SYSTEM 8MM X 40MM Implanted [id number] Staff: Tab Card Press Operator: Low Cerrato RN Scrub Person: Amaya Batista, ROSANA; Zoya Harris; Samantha Meadows CST Engagement Specialist: Fernandez Jarquin CSA [place] Tab Card Press Operator: Aiyana Moody Indications: Patrick Rutherford is an [...] hemodynamically stable. Condition: stable Jazz Diamond Normal [facility] POCT ACTIVATED CLOTTING TIME UNSOLICITED RESULTSon 02-22-2022 POC ACTIVATED CLOTTING TIME 237 sec High 82-152 [facility] Comment on above: Performed By: #### L [id number] ####[facility] ([facility])[address] [place] [address] POC ACTIVATED CLOTTING TIME 212 sec High 82-152 [facility] Comment on above: Performed By: #### L [id number] ####[facility] ([facility])[address] [place] [address] POC ACTIVATED CLOTTING TIME 122 sec Normal 82-152 [facility] Comment on above: Performed By: #### L [id number] ####[facility] ([facility])[address] [place] [address] POCT GLUCOSE METER UNSOLICIT ED RESULTSon 02-22-2022 Glucose [Mass/Vol] 129 mg/dL High 70-105 [facility] Comment on above: Result Comment: [email or web address] Performed By: #### L [id number] ####[facility] ([facility])[address] [place] [address] Glucose [Mass/Vol] 149 mg/dL High 70-105 [facility] Comment on above: Result Comment: [email or web address] preeti Performed By: #### L [id number] ####[facility] ([facility])[address] [place] [address] Glucose [Mass/Vol] 239 mg/dL High 70-105 [facility] Comment on above: Result Comment: [email or web address] Performed By: #### L [id number] ####[facility] ([facility])[address] [place] [address] APTTon 02-19-2022 ACTIVATED PARTIAL THROMBOPLASTIN TIME IN PPP BY COAGULATION ASSAY 25.4 Seconds Normal 25.0-35.0 [facility] Comment on above: Performed By: #### L [id number] ####[facility] ([facility])[address] [place] [address] BASIC METABOLIC PANELon Anion gap [Moles/Vol] 9 mmol/L Normal <=30 [facility] Comment on above: Performed By: #### L [id number] ####[facility] ([facility])[address] [place] [address] Calcium [Mass/Vol] 9.3 mg/dL Normal 8.6-10.3 [facility] Comment on above: Performed By: #### L [id number] ####[facility] ([facility])[address] [place] [address] Chloride [Moles/Vol] 106 mmol/L Normal 98-107 [facility] Comment on above: Performed By: #### L [id number] ####[facility] ([facility])[address] [place] [address] CO2 [Moles/Vol] 22 mmol/L Normal 21-31 [facility] Comment on above: Performed By: #### L [id number] ####[facility] ([facility])[address] [place] [address] Creatinine [Mass/Vol] 1.16 mg/dL Normal 0.70-1.30 [facility] Comment on above: Performed By: #### L [id number] ####[facility] ([facility])[address] [place] [address] GLOMERULAR FILTRATION RATE ML/MIN/1.73 SQ M.PREDICTED 57.9 mL/min/1.73m*2 Low >60.0 [facility] Comment on above: Result Comment: The [facility]???s estimated glomerular filtration rate (eGFR) will no [...] of individuals. Performed By: #### L [id number] ####[facility] ([facility])[address] [place] [address] Glucose [Mass/Vol] 253 mg/dL High 70-100 [facility] Comment on above: Performed By: #### L [id number] ####[facility] ([facility])[address] [place] [address] Potassium [Moles/Vol] 4.7 mmol/L Normal 3.5-5.1 [facility] Comment on above: Performed By: #### L [id number] ####[facility] ([facility])[address] [place] [address] Sodium [Moles/Vol] 137 mmol/L Normal 136-145 [facility] Comment on above: Performed By: #### L [id number] ####[facility] ([facility])[address] [place] [address] Urea nitrogen [Mass/Vol] 25 mg/dL Normal 7-25 [facility] Comment on above: Performed By: #### L [id number] ####[facility] ([facility])[address] [place] [address] UREA NITROGEN/CREATININE (MASS RATIO) IN SER/PLAS 21.55 Normal [facility] Comment on above: Performed By: #### L [id number] ####[facility] ([facility])[address] [place] [address] CBCon 02-19-2022 Erythrocyte distribution width (RBC) [Ratio] 13.9 % Normal 11.5-15.0 [facility] Comment on above: Performed By: #### L [id number] ####[facility] ([facility])[address] [place] [address] ERYTHROCYTE MEAN CORPUSCULAR HEMOGLOBIN CONCENTRATION (G/DL) BY AUTOMATED 33.1 g/dL Normal 32.0-35.0 [facility] Comment on above: Performed By: #### L [id number] ####[facility] ([facility])[address] [place] [address] Hematocrit (Bld) [Volume fraction] 34.4 % Low 39.0-55.0 [facility] Comment on above: Performed By: #### L [id number] ####[facility] ([facility])[address] [place] [address] Hemoglobin (Bld) [Mass/Vol] 11.4 g/dL Low 13.0-17.0 [facility] Comment on above: Performed By: #### L [id number] ####[facility] ([facility])[address] [place] [address] MCH (RBC) [Entitic mass] 30.7 pg Normal 27.0-33.0 [facility] Comment on above: Performed By: #### L [id number] ####[facility] ([facility])[address] [place] [address] MCV (RBC) [Entitic vol] 92.7 fL Normal 82.0-98.0 [facility] Comment on above: Performed By: #### L [id number] ####[facility] ([facility])[address] [address] PLATELETS (10*3/UL) IN BLOOD AUTOMATED COUNT 349 10*3/uL Normal 150-400 [facility] Comment on above: Performed By: #### L [id number] ####[facility] ([facility])[address] [place] [address] RBC (Bld) [#/Vol] 3.71 10*6/uL Low 4.20-5.70 [facility] Comment on above: Performed By: #### L [id number] ####[facility] ([facility])[place] [address] WBC (Bld) [#/Vol] 10.62 10*3/uL High 4.00-10.60 [facility] Comment on above: Performed By: #### L [id number] ####[facility] ([facility])[place] [address] MRSA/MSSA DNA NASALon 2021 MRSA DNA Negative Normal Negative, Invalid [facility] Comment on above: Performed By: #### L [id number] ####[facility] ([facility])[place] [address] MSSA DNA Negative Normal Negative, Invalid [facility] Comment on above: Performed By: #### L [id number] ####[facility] ([facility])[address] [place] [address] PROTIME-INRon 02-19-2022 INR IN PPP BY COAGULATION ASSAY 1.00 Normal 0.90-1.10 [facility] Comment on above: Result Comment: ACCC P [...] CHEST 1995;108:231S-246S. Performed By: #### L [id number] ####[facility] ([facility])[address] [place] [address] PROTHROMBIN TIME (PT) IN PPP BY COAGULATION ASSAY 13.2 Seconds Normal 12.3-14.8 [facility] Comment on above: Performed By: #### L [id number] ####[facility] ([facility])[address] [place] [address] SARS-COV-2 [facility] 02-19-2022 SARS-CoV-2 (COVID-19) RNA ISABELLA+probe Ql (Unsp spec) Not detected Normal Not Detected [facility] Comment on above: Result Comment: Not detected does not preclude SARS-CoV-2 infection and should not be used as the sole basis for patient management decisions. Not detected results must be combined with clinical observations, patient history, and epidemiological information. The Aptima SARS-CoV-2 assay is a nucleic acid amplification test intended for the qualitative detection of RNA from SARS-CoV-2 isolated and purified from nasopharyngeal (MANAGER MOLECULAR), oropharyngeal (OP), nasal swab, sputum, and bronchoalveolar lavage (BAL) specimens from patients with signs and symptoms of infection who are suspected of COVID-19. Results are for the identification of SARS-CoV-2 RNA. The SARS-CoV-2 RNA is generally detectable during the acute phase of infection. The Aptima SARS-CoV-2 Assay on the [employer] system is intended for use by laboratory personnel specifically instructed and trained in the operation of the [employer] system. The Aptima SARS-CoV-2 assay is only for use under the Food and Drug Administration Emergency Use Authorization. Testing is limited to laboratories certified under the Clinical Laboratory Improvement Amendments of 1988 (CLIA), 42 U.S.C. ???263a, to perform high complexity tests. Performed By: #### L [id number] ####[facility] ([facility])[address] [place] [address] TYPE AND SCREENon 02-19-2022 AB SCREEN Negative Normal [facility] Comment on above: Performed By: #### L [id number] ####[facility], ABO group Nom (Bld) A Normal [facility] Comment on above: Performed By: #### L [id number] ####[facility], RH TYPE IN BLOOD Negative Normal [facility] Comment on above: Performed By: #### L [id number] ####[facility], Orders Onlyon 02-17-2022 Orders Only [id number] Rutherford,Oral M 1940 M Date Provider Department Center 02/17/2022 JUSTIN FEILCIANO [facility] C No family history on file Normal [facility] Orders Onlyon 02-16-2022 Orders Only [id number] Rutherford,Oral M 1940 M Date Provider Department Center 02/16/2022 AAKASH LOBO [facility] C No family history on file Normal [facility] Orders Onlyon 02-01-2022 Orders Only [id number] Rutherford,Oral M 1940 M Date Provider Department Center 02/01/2022 BEVERLY SORIANO [facility] [place] [facility] No family history on file Normal [facility] CBC AUTO DIFFon 12-28-2021 BASO # 0.1 103/ul Normal 0.0-0.1 [facility] Comment on above: Performed By: #### P OCGLUC #### [facility] [address] [address] [address] Lety Torres Basophils/100 WBC (Bld) 0.7 % Normal 0.2-2.0 [facility] Comment on above: Performed By: #### P OCGLUC #### [facility] [address] [address] [address] Lety Torres EO # 0.4 103/ul Normal 0.0-0.7 [facility] Comment on above: Performed By: #### P OCGLUC #### [facility] [address] [address] [address] Lety Torres Eosinophils/100 WBC (Bld) 4.8 % Normal 0.9-7.0 [facility] Comment on above: Performed By: #### P OCGLUC #### [facility] [address] [place] [address] Dr. Lety Torres Erythrocyte distribution width (RBC) [Ratio] 13.7 % Normal 11.0-15.0 [facility] Comment on above: Performed By: #### P OCGLUC #### [facility] [address] [place] [address] Dr. Lety Torres Hematocrit (Bld) [Volume fraction] 29.7 % Critically low 42.0-54.0 [facility] Comment on above: Performed By: #### P OCGLUC #### [facility] [address] [place] [address] Dr. Lety Torres Hemoglobin (Bld) [Mass/Vol] 9.6 g/dL Critically low 14.0-18.0 [facility] Comment on above: Performed By: #### P OCGLUC #### [facility] [address] [place] [address] Dr. Lety Torres IG # 0.11 10e3/ul Critically high 0.00-0.03 [facility] Comment on above: Performed By: #### P OCGLUC #### [facility] [address] [place] [address] Dr. Lety Torres IG % 1.3 % Critically high 0.0-0.5 [facility] Comment on above: Performed By: #### P OCGLUC #### [facility] [address] [address] [address] Lety Torres LYMPH # 2.7 103/ul Normal 1.2-3.8 [facility] Comment on above: Performed By: #### P OCGLUC #### [facility] [address] [place] [address] Dr. Lety Torres Lymphocytes/100 WBC (Bld) 32.5 % Normal 20.5-60.0 [facility] Comment on above: Performed By: #### P OCGLUC #### [facility] [address] [place] [address] Dr. Lety Torres MANUAL DIFF REQ NO Normal [facility] Comment on above: Performed By: #### P OCGLUC #### [facility] [address] [place] [address] Dr. Lety Torres MCH (RBC) [Entitic mass] 29.8 pg Normal 25.9-34.0 [facility] Comment on above: Performed By: #### P OCGLUC #### [facility] [address] [place] [address] Dr. Lety Torres MCHC (RBC) [Mass/Vol] 32.3 g/dL Normal 29.9-35.2 [facility] Comment on above: Performed By: #### P OCGLUC #### [facility] [address] [place] [address] Dr. Lety Torres MCV (RBC) [Entitic vol] 92.2 fL Normal 80.0-94.0 [facility] Comment on above: Performed By: #### P OCGLUC #### [facility] [address] [place] [address] Dr. Lety Torres MONO # 0.8 103/ul Normal 0.3-0.8 [facility] Comment on above: Performed By: #### P OCGLUC #### [facility] [address] [place] [address] Dr. Lety Torers Monocytes/100 WBC (Bld) 10.0 % Normal 1.7-12.0 [facility] Comment on above: Performed By: #### P OCGLUC #### [facility] [address] [address] [address] Lety Torres NEUT # 4.2 103/ul Normal 1.4-6.5 [facility] Comment on above: Performed By: #### P OCGLUC #### [facility] [address] [address] [address] Lety Torres Neutrophils/100 WBC (Bld) 50.7 % Normal 43.0-75.0 [facility] Comment on above: Performed By: #### P OCGLUC #### [facility] [address] [address] [address] Lety Torres Platelet mean volume (Bld) [Entitic vol] 9.7 fL Normal 9.5-13.5 [facility] Comment on above: Performed By: #### P OCGLUC #### [facility] [address] [place] [address] Dr. Lety Torres PLT 333 103/ul Normal 150-450 [facility] Comment on above: Performed By: #### P OCGLUC #### [facility] [address] [place] [address] Dr. Lety Torres RBC 3.22 106/ul Critically low 4.70-6.10 [facility] Comment on above: Performed By: #### P OCGLUC #### [facility] [address] [place] [address] Dr. Lety Torres WBC 8.3 103/ul Normal 4.0-11.0 [facility] Comment on above: Performed By: #### P OCGLUC #### [facility] [address] [place] [address] Dr. Lety Torres CULTURE BLOODon 12-28-2021 Microscopic examination of blood, culture Culture Observations: Aerobic and Anaerobic bottle positive. Culture Observations: BCID- proteus species Culture Observations: Called BCID to Jacinta Morel in [facility] at 2014 on 12/25 Isolate 1 Proteus [...] F Trimethoprim/Sulfamethoxazol e <=20 S F Normal [facility] Comment on above: Performed By: #### B [id number] #### [facility] [address] [place] [address] Dr. Lety Torres PROF 14(COMP METB)on 022 Albumin [Mass/Vol] 2.5 g/dL Critically low 3.4-5.0 [facility] Comment on above: Performed By: #### P OCGLUC #### [facility] [address] [place] [address] Dr. Lety Torres Albumin/Globulin [Mass ratio] 0.6 {ratio} Normal [facility] Comment on above: Performed By: #### P OCGLUC #### [facility] [address] [place] [address] Dr. Lety Torres ALP [Catalytic activity/Vol] 85 U/L Normal 46-116 [facility] Comment on above: Performed By: #### P OCGLUC #### [facility] [address] [place] [address] Dr. Lety Torres ALT [Catalytic activity/Vol] 65 U/L Critically high 16-63 [facility] Comment on above: Performed By: #### P OCGLUC #### [facility] [address] [place] [address] Dr. Lety Torres Anion gap [Moles/Vol] 14.4 mmol/L Normal [facility] Comment on above: Performed By: #### P OCGLUC #### [facility] [address] [place] [address] Dr. Lety Torres AST [Catalytic activity/Vol] 30 U/L Normal 15-37 [facility] Comment on above: Performed By: #### P OCGLUC #### [facility] [address] [place] [address] Dr. Lety Torres Bilirubin [Mass/Vol] 0.3 mg/dL Normal 0.2-1.0 [facility] Comment on above: Performed By: #### P OCGLUC #### [facility] [address] [place] [address] Dr. Lety Torres Calcium [Mass/Vol] 8.6 mg/dL Normal 8.5-10.1 [facility] Comment on above: Performed By: #### P OCGLUC #### [facility] [address] [address] [address] Lety Torres Chloride [Moles/Vol] 107 mmol/L Normal 98-107 [facility] Comment on above: Performed By: #### P OCGLUC #### [facility] [address] [place] [address] Dr. Lety Torres CO2 [Moles/Vol] 22.7 mmol/L Normal 21.0-32.0 [facility] Comment on above: Performed By: #### P OCGLUC #### [facility] [address] [place] [address] Dr. Lety Torres Creatinine [Mass/Vol] 1.13 mg/dL Normal 0.70-1.30 [facility] Comment on above: Performed By: #### P OCGLUC #### [facility] [address] [place] [address] Dr. Lety Torres EGFR-AF NIGERIEN >60 Normal >=60 [facility] Comment on above: Performed By: #### P OCGLUC #### [facility] [address] [place] [address] Dr. Lety Torres EGFR-NON AF NIGERIEN >60 Normal >=60 [facility] Comment on above: Performed By: #### P OCGLUC #### [facility] [address] [place] [address] Dr. Lety Torres Globulin (S) [Mass/Vol] 4.0 g/dL Normal [facility] Comment on above: Performed By: #### P OCGLUC #### [facility] [address] [place] [address] Dr. Lety Torres Glucose [Mass/Vol] 188 mg/dL Critically high 74-106 [facility] Comment on above: Performed By: #### P OCGLUC #### [facility] [address] [address] [address] Lety Torres Potassium [Moles/Vol] 4.1 mmol/L Normal 3.5-5.1 [facility] Comment on above: Performed By: #### P OCGLUC #### [facility] [address] [address] [address] Lety Torres Protein [Mass/Vol] 6.5 g/dL Normal 6.4-8.2 [facility] Comment on above: Performed By: #### P OCGLUC #### [facility] [address] [address] [address] Lety Torres Sodium [Moles/Vol] 140 mmol/L Normal 136-145 [facility] Comment on above: Performed By: #### P OCGLUC #### [facility] [address] [address] [address] Lety Torres Urea nitrogen [Mass/Vol] 20.0 mg/dL Critically high 7.0-18.0 [facility] Comment on above: Performed By: #### P OCGLUC #### [facility] [address] [address] [address] Lety Torres Urea nitrogen/Creatinine [Mass ratio] 17.7 mg/mg Normal [facility] Comment on above: Performed By: #### P OCGLUC #### [facility] [address] [address] [address] Lety Torres CBC AUTO DIFFon 12-27-2021 BASO # 0.0 103/ul Normal 0.0-0.1 [facility] Comment on above: Performed By: #### P OCGLUC #### [facility] [address] [address] [address] Lety Torres Basophils/100 WBC (Bld) 0.4 % Normal 0.2-2.0 [facility] Comment on above: Performed By: #### P OCGLUC #### [facility] [address] [address] [address] Lety Torres EO # 0.2 103/ul Normal 0.0-0.7 [facility] Comment on above: Performed By: #### P OCGLUC #### [facility] [address] [address] [address] Lety Torres Eosinophils/100 WBC (Bld) 2.5 % Normal 0.9-7.0 [facility] Comment on above: Performed By: #### P OCGLUC #### [facility] [address] [place] [address] Dr. Lety Torres Erythrocyte distribution width (RBC) [Ratio] 14.4 % Normal 11.0-15.0 [facility] Comment on above: Performed By: #### P OCGLUC #### [facility] [address] [place] [address] Dr. Lety Torres Hematocrit (Bld) [Volume fraction] 29.7 % Critically low 42.0-54.0 [facility] Comment on above: Performed By: #### P OCGLUC #### [facility] [address] [place] [address] Dr. Lety Torres Hemoglobin (Bld) [Mass/Vol] 9.6 g/dL Critically low 14.0-18.0 [facility] Comment on above: Performed By: #### P OCGLUC #### [facility] [address] [place] [address] Dr. Lety Torres IG # 0.06 10e3/ul Critically high 0.00-0.03 [facility] Comment on above: Performed By: #### P OCGLUC #### [facility] [address] [place] [address] Dr. Lety Torres IG % 0.6 % Critically high 0.0-0.5 [facility] Comment on above: Performed By: #### P OCGLUC #### [facility] [address] [place] [address] Dr. Lety Torres LYMPH # 2.0 103/ul Normal 1.2-3.8 [facility] Comment on above: Performed By: #### P OCGLUC #### [facility] [address] [place] [address] Dr. Lety Torres Lymphocytes/100 WBC (Bld) 20.8 % Normal 20.5-60.0 [facility] Comment on above: Performed By: #### P OCGLUC #### [facility] [address] [place] [address] Dr. Lety Torres MANUAL DIFF REQ NO Normal [facility] Comment on above: Performed By: #### P OCGLUC #### [facility] [address] [place] [address] Dr. Lety Torres MCH (RBC) [Entitic mass] 30.4 pg Normal 25.9-34.0 [facility] Comment on above: Performed By: #### P OCGLUC #### [facility] [address] [place] [address] Dr. Lety Torres MCHC (RBC) [Mass/Vol] 32.3 g/dL Normal 29.9-35.2 [facility] Comment on above: Performed By: #### P OCGLUC #### [facility] [address] [place] [address] Dr. Lety Torres MCV (RBC) [Entitic vol] 94.0 fL Normal 80.0-94.0 [facility] Comment on above: Performed By: #### P OCGLUC #### [facility] [address] [place] [address] Dr. Lety Torres MONO # 0.9 103/ul Critically high 0.3-0.8 [facility] Comment on above: Performed By: #### P OCGLUC #### [facility] [address] [place] [address] Dr. Lety Torres Monocytes/100 WBC (Bld) 9.6 % Normal 1.7-12.0 [facility] Comment on above: Performed By: #### P OCGLUC #### [facility] [address] [place] [address] Dr. Lety Torres NEUT # 6.3 103/ul Normal 1.4-6.5 [facility] Comment on above: Performed By: #### P OCGLUC #### [facility] [address] [place] [address] Dr. Lety Torres Neutrophils/100 WBC (Bld) 66.1 % Normal 43.0-75.0 [facility] Comment on above: Performed By: #### P OCGLUC #### [facility] [address] [address] [address] Lety Torres Platelet mean volume (Bld) [Entitic vol] 10.1 fL Normal 9.5-13.5 [facility] Comment on above: Performed By: #### P OCGLUC #### [facility] [address] [address] [address] Lety Torres PLT 274 103/ul Normal 150-450 [facility] Comment on above: Performed By: #### P OCGLUC #### [facility] [address] [address] [address] Lety Torres RBC 3.16 106/ul Critically low 4.70-6.10 [facility] Comment on above: Performed By: #### P OCGLUC #### [facility] [address] [address] [address] Lety Torres WBC 9.5 103/ul Normal 4.0-11.0 [facility] Comment on above: Performed By: #### P OCGLUC #### [facility] [address] [address] [address] Lety Torres POINT OF CARE GLUCOSEon 12-14 Glucose [Mass/Vol] 247 mg/dL Critically high 74-106 [facility] Comment on above: Performed By: #### P OCGLUC #### [facility] [address] [address] [address] Lety Torres Glucose [Mass/Vol] 135 mg/dL Critically high 74-106 [facility] Comment on above: Performed By: #### P OCGLUC #### [facility] [address] [address] [address] Lety Torres Glucose [Mass/Vol] 124 mg/dL Critically high 74-106 [facility] Comment on above: Performed By: #### P OCGLUC #### [facility] [address] [address] [address] Lety Torres Glucose [Mass/Vol] 98 mg/dL Normal 74-106 [facility] Comment on above: Performed By: #### P OCGLUC #### [facility] [address] [address] [address] Lety Torres Glucose [Mass/Vol] 145 mg/dL Critically high 74-106 [facility] Comment on above: Performed By: #### C MP #### [facility] [address] [place] [address] Dr. Lety Torres PROF 14(COMP METB)on 022 Albumin [Mass/Vol] 2.4 g/dL Critically low 3.4-5.0 [facility] Comment on above: Performed By: #### C MP #### [facility] [address] [place] [address] Dr. Lety Torres Albumin/Globulin [Mass ratio] 0.6 {ratio} Normal [facility] Comment on above: Performed By: #### C MP #### [facility] [address] [place] [address] Dr. Lety Torres ALP [Catalytic activity/Vol] 84 U/L Normal 46-116 [facility] Comment on above: Performed By: #### C MP #### [facility] [address] [address] [address] Lety Torres ALT [Catalytic activity/Vol] 69 U/L Critically high 16-63 [facility] Comment on above: Performed By: #### C MP #### [facility] [address] [address] [address] Lety Torres Anion gap [Moles/Vol] 14.3 mmol/L Normal [facility] Comment on above: Performed By: #### C MP #### [facility] [address] [address] [address] Lety Torres AST [Catalytic activity/Vol] 49 U/L Critically high 15-37 [facility] Comment on above: Performed By: #### C MP #### [facility] [address] [place] [address] Dr. Lety Torres Bilirubin [Mass/Vol] 0.3 mg/dL Normal 0.2-1.0 [facility] Comment on above: Performed By: #### C MP #### [facility] [address] [address] [address] Lety Torres Calcium [Mass/Vol] 8.4 mg/dL Critically low 8.5-10.1 [facility] Comment on above: Performed By: #### C MP #### [facility] [address] [address] [address] Lety Torres Chloride [Moles/Vol] 109 mmol/L Critically high 98-107 [facility] Comment on above: Performed By: #### C MP #### [facility] [address] [address] [address] Lety Torres CO2 [Moles/Vol] 22.9 mmol/L Normal 21.0-32.0 [facility] Comment on above: Performed By: #### C MP #### [facility] [address] [address] [address] Lety Torres Creatinine [Mass/Vol] 1.33 mg/dL Critically high 0.70-1.30 [facility] Comment on above: Performed By: #### C MP #### [facility] [address] [address] [address] Lety Torres EGFR-AF NIGERIEN >60 Normal >=60 [facility] Comment on above: Performed By: #### C MP #### [facility] [address] [address] [address] Lety Torres EGFR-NON AF NIGERIEN 51 mL/min/1.73m2 Critically low >=60 [facility] Comment on above: Performed By: #### C MP #### [facility] [address] [address] [address] Lety Torres Globulin (S) [Mass/Vol] 3.9 g/dL Normal [facility] Comment on above: Performed By: #### C MP #### [facility] [address] [address] [address] Lety Torres Glucose [Mass/Vol] 220 mg/dL Critically high 74-106 [facility] Comment on above: Performed By: #### C MP #### [facility] [address] [address] [address] Lety Torres Potassium [Moles/Vol] 4.2 mmol/L Normal 3.5-5.1 [facility] Comment on above: Performed By: #### C MP #### [facility] [address] [address] [address] Lety Torres Protein [Mass/Vol] 6.3 g/dL Critically low 6.4-8.2 [facility] Comment on above: Performed By: #### C MP #### [facility] [address] [address] [address] Lety Torres Sodium [Moles/Vol] 142 mmol/L Normal 136-145 [facility] Comment on above: Performed By: #### C MP #### [facility] [address] [place] [address] Dr. Lety Torres Urea nitrogen [Mass/Vol] 18.0 mg/dL Normal 7.0-18.0 [facility] Comment on above: Performed By: #### C MP #### [facility] [address] [place] [address] Dr. Lety Torres Urea nitrogen/Creatinine [Mass ratio] 13.5 mg/mg Normal [facility] Comment on above: Performed By: #### C MP #### [facility] [address] [place] [address] Dr. Lety Torres CBC AUTO DIFFon 12-26-2021 BASO # 0.0 103/ul Normal 0.0-0.1 [facility] Comment on above: Performed By: #### C BC #### [facility] [address] [place] [address] Dr. Lety Torres Basophils/100 WBC (Bld) 0.2 % Normal 0.2-2.0 [facility] Comment on above: Performed By: #### C BC #### [facility] [address] [place] [address] Dr. Lety Torres EO # 0.0 103/ul Normal 0.0-0.7 [facility] Comment on above: Performed By: #### C BC #### [facility] [address] [place] [address] Dr. Lety Torres Eosinophils/100 WBC (Bld) 0.2 % Critically low 0.9-7.0 [facility] Comment on above: Performed By: #### C BC #### [facility] [address] [place] [address] Dr. Lety Torres Erythrocyte distribution width (RBC) [Ratio] 14.4 % Normal 11.0-15.0 [facility] Comment on above: Performed By: #### C BC #### [facility] [address] [place] [address] Dr. Lety Torres Hematocrit (Bld) [Volume fraction] 29.9 % Critically low 42.0-54.0 [facility] Comment on above: Performed By: #### C BC #### [facility] [address] [place] [address] Dr. Lety Torres Hemoglobin (Bld) [Mass/Vol] 9.6 g/dL Critically low 14.0-18.0 [facility] Comment on above: Performed By: #### C BC #### [facility] [address] [place] [address] Dr. Lety Torres IG # 0.11 10e3/ul Critically high 0.00-0.03 [facility] Comment on above: Performed By: #### C BC #### [facility] [address] [place] [address] Dr. Lety Torres IG % 0.7 % Critically high 0.0-0.5 [facility] Comment on above: Performed By: #### C BC #### [facility] [address] [place] [address] Dr. Leyt Torres LYMPH # 2.0 103/ul Normal 1.2-3.8 [facility] Comment on above: Performed By: #### C BC #### [facility] [address] [place] [address] Dr. Lety Torres Lymphocytes/100 WBC (Bld) 12.3 % Critically low 20.5-60.0 [facility] Comment on above: Performed By: #### C BC #### [facility] [address] [place] [address] Dr. Lety Torres MANUAL DIFF REQ NO Normal [facility] Comment on above: Performed By: #### C BC #### [facility] [address] [place] [address] Dr. Lety Torres MCH (RBC) [Entitic mass] 30.1 pg Normal 25.9-34.0 [facility] Comment on above: Performed By: #### C BC #### [facility] [address] [place] [address] Dr. Lety Torres MCHC (RBC) [Mass/Vol] 32.1 g/dL Normal 29.9-35.2 [facility] Comment on above: Performed By: #### C BC #### [facility] [address] [place] [address] Dr. Lety Torres MCV (RBC) [Entitic vol] 93.7 fL Normal 80.0-94.0 [facility] Comment on above: Performed By: #### C BC #### [facility] [address] [place] [address] Dr. Lety Torres MONO # 1.5 103/ul Critically high 0.3-0.8 [facility] Comment on above: Performed By: #### C BC #### [facility] [address] [place] [address] Dr. Lety Torres Monocytes/100 WBC (Bld) 9.3 % Normal 1.7-12.0 [facility] Comment on above: Performed By: #### C BC #### [facility] [address] [place] [address] Dr. Lety Torres NEUT # 12.5 103/ul Critically high 1.4-6.5 [facility] Comment on above: Performed By: #### C BC #### [facility] [address] [place] [address] Dr. Lety Torres Neutrophils/100 WBC (Bld) 77.3 % Critically high 43.0-75.0 [facility] Comment on above: Performed By: #### C BC #### [facility] [address] [place] [address] Dr. Lety Torres Platelet mean volume (Bld) [Entitic vol] 9.5 fL Normal 9.5-13.5 [facility] Comment on above: Performed By: #### C BC #### [facility] [address] [place] [address] Dr. Lety Torres PLT 245 103/ul Normal 150-450 [facility] Comment on above: Performed By: #### C BC #### [facility] [address] [place] [address] Dr. Lety Torres RBC 3.19 106/ul Critically low 4.70-6.10 [facility] Comment on above: Performed By: #### C BC #### [facility] [address] [place] [address] Dr. Lety Torres WBC 16.2 103/ul Critically high 4.0-11.0 [facility] Comment on above: Performed By: #### C BC #### [facility] [address] [place] [address] Dr. Lety Torres BASO # 0.0 103/ul Normal 0.0-0.1 [facility] Comment on above: Performed By: #### P OCGLUC #### [facility] [address] [place] [address] Dr. Lety Torres Basophils/100 WBC (Bld) 0.3 % Normal 0.2-2.0 [facility] Comment on above: Performed By: #### P OCGLUC #### [facility] [address] [place] [address] Dr. Lety Torres EO # 0.1 103/ul Normal 0.0-0.7 [facility] Comment on above: Performed By: #### P OCGLUC #### [facility] [address] [place] [address] Dr. Lety Torres Eosinophils/100 WBC (Bld) 0.3 % Critically low 0.9-7.0 [facility] Comment on above: Performed By: #### P OCGLUC #### [facility] [address] [place] [address] Dr. Lety Torres Erythrocyte distribution width (RBC) [Ratio] 14.5 % Normal 11.0-15.0 [facility] Comment on above: Performed By: #### P OCGLUC #### [facility] [address] [place] [address] Dr. Lety Torres Hematocrit (Bld) [Volume fraction] 27.0 % Critically low 42.0-54.0 [facility] Comment on above: Performed By: #### P OCGLUC #### [facility] [address] [place] [address] Dr. Lety Torres Hemoglobin (Bld) [Mass/Vol] 9.0 g/dL Critically low 14.0-18.0 [facility] Comment on above: Performed By: #### P OCGLUC #### [facility] [address] [place] [address] Dr. Lety Torres IG # 0.10 10e3/ul Critically high 0.00-0.03 [facility] Comment on above: Performed By: #### P OCGLUC #### [facility] [address] [place] [address] Dr. Lety Torres IG % 0.7 % Critically high 0.0-0.5 [facility] Comment on above: Performed By: #### P OCGLUC #### [facility] [address] [place] [address] Dr. Lety Torres LYMPH # 2.5 103/ul Normal 1.2-3.8 [facility] Comment on above: Performed By: #### P OCGLUC #### [facility] [address] [place] [address] Dr. Lety Torres Lymphocytes/100 WBC (Bld) 16.4 % Critically low 20.5-60.0 [facility] Comment on above: Performed By: #### P OCGLUC #### [facility] [address] [place] [address] Dr. Lety Torres MANUAL DIFF REQ NO Normal [facility] Comment on above: Performed By: #### P OCGLUC #### [facility] [address] [place] [address] Dr. Lety Torres MCH (RBC) [Entitic mass] 30.9 pg Normal 25.9-34.0 [facility] Comment on above: Performed By: #### P OCGLUC #### [facility] [address] [place] [address] Dr. Lety Torres MCHC (RBC) [Mass/Vol] 33.3 g/dL Normal 29.9-35.2 [facility] Comment on above: Performed By: #### P OCGLUC #### [facility] [address] [place] [address] Dr. Lety Torres MCV (RBC) [Entitic vol] 92.8 fL Normal 80.0-94.0 [facility] Comment on above: Performed By: #### P OCGLUC #### [facility] [address] [place] [address] Dr. Lety Torres MONO # 1.3 103/ul Critically high 0.3-0.8 [facility] Comment on above: Performed By: #### P OCGLUC #### [facility] [address] [place] [address] Dr. Lety Torres Monocytes/100 WBC (Bld) 8.3 % Normal 1.7-12.0 [facility] Comment on above: Performed By: #### P OCGLUC #### [facility] [address] [place] [address] Dr. Lety Torres NEUT # 11.3 103/ul Critically high 1.4-6.5 [facility] Comment on above: Performed By: #### P OCGLUC #### [facility] [address] [place] [address] Dr. Lety Torres Neutrophils/100 WBC (Bld) 74.0 % Normal 43.0-75.0 [facility] Comment on above: Performed By: #### P OCGLUC #### [facility] [address] [place] [address] Dr. Lety Torres Platelet mean volume (Bld) [Entitic vol] 9.6 fL Normal 9.5-13.5 [facility] Comment on above: Performed By: #### P OCGLUC #### [facility] [address] [address] [address] Lety Torres PLT 232 103/ul Normal 150-450 [facility] Comment on above: Performed By: #### P OCGLUC #### [facility] [address] [address] [address] Lety Torres RBC 2.91 106/ul Critically low 4.70-6.10 [facility] Comment on above: Performed By: #### P OCGLUC #### [facility] [address] [address] [address] Lety Torres WBC 15.2 103/ul Critically high 4.0-11.0 [facility] Comment on above: Performed By: #### P OCGLUC #### [facility] [address] [place] [address] Dr. Lety Torres POINT OF CARE GLUCOSEon 12-14 Glucose [Mass/Vol] 122 mg/dL Critically high 74-106 [facility] Comment on above: Performed By: #### P OCGLUC #### [facility] [address] [place] [address] Dr. Lety Torres Glucose [Mass/Vol] 135 mg/dL Critically high 74-106 [facility] Comment on above: Performed By: #### P OCGLUC #### [facility] [address] [place] [address] Dr. Lety Torres Glucose [Mass/Vol] 282 mg/dL Critically high 74-106 [facility] Comment on above: Performed By: #### P OCGLUC #### [facility] [address] [place] [address] Dr. Lety Torres Glucose [Mass/Vol] 48 mg/dL Critically low 74-106 [facility] Comment on above: Result Comment: Will Repeat Test Performed By: #### P OCGLUC #### [facility] [address] [place] [address] Dr. Lety Torres Glucose [Mass/Vol] 85 mg/dL Normal 74-106 [facility] Comment on above: Performed By: #### P OCGLUC #### [facility] [address] [place] [address] Dr. Lety Torres Glucose [Mass/Vol] 242 mg/dL Critically high 74-106 [facility] Comment on above: Performed By: #### P OCGLUC #### [facility] [address] [place] [address] Dr. Lety Torres Glucose [Mass/Vol] 44 mg/dL Critically low 74-106 [facility] Comment on above: Result Comment: Prev iously Confirmed Performed By: #### P OCGLUC #### [facility] [address] [place] [address] Dr. Lety Torres PROF 14(COMP METB)on 022 Albumin [Mass/Vol] 2.4 g/dL Critically low 3.4-5.0 [facility] Comment on above: Performed By: #### C MP #### [facility] [address] [place] [address] Dr. Lety Torres Albumin/Globulin [Mass ratio] 0.7 {ratio} Normal [facility] Comment on above: Performed By: #### C MP #### [facility] [address] [place] [address] Dr. Lety Torres ALP [Catalytic activity/Vol] 62 U/L Normal 46-116 [facility] Comment on above: Performed By: #### C MP #### [facility] [address] [place] [address] Dr. Lety Torres ALT [Catalytic activity/Vol] 26 U/L Normal 16-63 [facility] Comment on above: Performed By: #### C MP #### [facility] [address] [place] [address] Dr. Lety Torres Anion gap [Moles/Vol] 11.5 mmol/L Normal [facility] Comment on above: Performed By: #### C MP #### [facility] [address] [place] [address] Dr. Lety Torres AST [Catalytic activity/Vol] 22 U/L Normal 15-37 [facility] Comment on above: Performed By: #### C MP #### [facility] [address] [place] [address] Dr. Lety Torres Bilirubin [Mass/Vol] 0.5 mg/dL Normal 0.2-1.0 [facility] Comment on above: Performed By: #### C MP #### [facility] [address] [place] [address] Dr. Lety Torres Calcium [Mass/Vol] 7.8 mg/dL Critically low 8.5-10.1 [facility] Comment on above: Performed By: #### C MP #### [facility] [address] [address] [address] Lety Torres Chloride [Moles/Vol] 107 mmol/L Normal 98-107 [facility] Comment on above: Performed By: #### C MP #### [facility] [address] [place] [address] Dr. Lety Torres CO2 [Moles/Vol] 23.3 mmol/L Normal 21.0-32.0 [facility] Comment on above: Performed By: #### C MP #### [facility] [address] [place] [address] Dr. Lety Torres Creatinine [Mass/Vol] 1.34 mg/dL Critically high 0.70-1.30 [facility] Comment on above: Performed By: #### C MP #### [facility] [address] [place] [address] Dr. Lety Torres EGFR-AF NIGERIEN >60 Normal >=60 [facility] Comment on above: Performed By: #### C MP #### [facility] [address] [place] [address] Dr. Lety Torres EGFR-NON AF NIGERIEN 51 mL/min/1.73m2 Critically low >=60 [facility] Comment on above: Performed By: #### C MP #### [facility] [address] [place] [address] Dr. Lety Torres Globulin (S) [Mass/Vol] 3.6 g/dL Normal [facility] Comment on above: Performed By: #### C MP #### [facility] [address] [place] [address] Dr. Lety Torres Glucose [Mass/Vol] 61 mg/dL Critically low 74-106 [facility] Comment on above: Performed By: #### C MP #### [facility] [address] [address] [address] Lety Torres Potassium [Moles/Vol] 3.8 mmol/L Normal 3.5-5.1 [facility] Comment on above: Performed By: #### C MP #### [facility] [address] [place] [address] Dr. Lety Torres Protein [Mass/Vol] 6.0 g/dL Critically low 6.4-8.2 [facility] Comment on above: Performed By: #### C MP #### [facility] [address] [place] [address] Dr. Lety Torres Sodium [Moles/Vol] 138 mmol/L Normal 136-145 [facility] Comment on above: Performed By: #### C MP #### [facility] [address] [place] [address] Dr. Lety Torres Urea nitrogen [Mass/Vol] 18.0 mg/dL Normal 7.0-18.0 [facility] Comment on above: Performed By: #### C MP #### [facility] [address] [place] [address] Dr. Lety Torres Urea nitrogen/Creatinine [Mass ratio] 13.4 mg/mg Normal [facility] Comment on above: Performed By: #### C MP #### [facility] [address] [place] [address] Dr. Lety Torres BLOOD CULTURE ID PANELon A. baumannii Not detected Normal NOT DETECTED [facility] Comment on above: Performed By: #### C MP #### [facility] [address] [place] [address] Dr. Lety Torres Performed By: #### C VDTB #### [facility] [address] [place] [address] Dr. Lety Torres Bacteriodes fragilis Not detected Normal NOT DETECTED [facility] Comment on above: Performed By: #### C MP #### [facility] [address] [place] [address] Dr. Lety Torres Performed By: #### C VDTBH #### [facility] [address] [place] [address] Dr. Lety Torres BCID CONTROLS PASSED [facility] Comment on above: Performed By: #### C MP #### [facility] [address] [place] [address] Dr. Lety Torres Performed By: #### C VDTBH #### [facility] [address] [place] [address] Dr. Lety Torres BCIDBTHD BLOOD CULTURE BOTTLE INFORMATION [facility] Comment on above: Performed By: #### C MP #### [facility] [address] [place] [address] Dr. Lety Torres Performed By: #### C VDTBH #### [facility] [address] [place] [address] Dr. Lety Torres BCIDHD1 ANTIMICROBIAL RESIST ANCE GENES [facility] Comment on above: Performed By: #### C MP #### [facility] [address] [place] [address] Dr. Lety Torres Performed By: #### C VDTBH #### [facility] [address] [place] [address] Dr. Lety Torres BCIDHD2 SEE BELOW [facility] Comment on above: Result Comment: Note : Antimicrobial resitance can occur via multiple mechanisms. A Not Detected result for the [employer] antomicrobial resistance gene assays does not indicate antimicrobial susceptibility. Subculturing is required for species identification and susceptibility testing of isolates. Performed By: #### C MP #### [facility] [address] [place] [address] Dr. Lety Torres Performed By: #### C VDTBH #### [facility] [address] [place] [address] Dr. Lety Torres BCIDHD3 Positive [facility] Comment on above: Performed By: #### C MP #### [facility] [address] [place] [address] Dr. Lety Torres Performed By: #### C VDTBH #### [facility] [address] [place] [address] Dr. Leyt Torres BCIDHD4 Negative Normal [facility] Comment on above: Performed By: #### C MP #### [facility] [address] [address] [address] Lety Torres Performed By: #### C VDTBH #### [facility] [address] [place] [address] Dr. Lety Torres BCIDHD5 YEAST Normal [facility] Comment on above: Performed By: #### C MP #### [facility] [address] [place] [address] Dr. Lety Torres Performed By: #### C VDTBH #### [facility] [address] [place] [address] Dr. Lety Torres Bottle Set: Set 1 Normal [facility] Comment on above: Performed By: #### C MP #### [facility] [address] [place] [address] Dr. Lety Torres Performed By: #### C VDTBH #### [facility] [address] [place] [address] Dr. Lety Torres Bottle: Aerobic Normal [facility] Comment on above: Performed By: #### C MP #### [facility] [address] [place] [address] Dr. Lety Torres Bottle: Anaerobic Normal [facility] Comment on above: Performed By: #### C VDTBH #### [facility] [address] [place] [address] Dr. Lety Torres C. neoformans/gattii Not detected Normal NOT DETECTED [facility] Comment on above: Performed By: #### C MP #### [facility] [address] [place] [address] Dr. Lety Torres Performed By: #### C VDTBH #### [facility] [address] [place] [address] Dr. Lety Torres Kaylah albicans Not detected Normal NOT DETECTED [facility] Comment on above: Performed By: #### C MP #### [facility] [address] [place] [address] Dr. Lety Torres Performed By: #### C VDTBH #### [facility] [address] [place] [address] Dr. Lety Torres Kaylah auris Not detected Normal NOT DETECTED [facility] Comment on above: Performed By: #### C MP #### [facility] [address] [place] [address] Dr. Lety Torres Performed By: #### C VDTBH #### [facility] [address] [place] [address] Dr. Lety Torres Kaylah glabrata Not detected Normal NOT DETECTED [facility] Comment on above: Performed By: #### C MP #### [facility] [address] [place] [address] Dr. Lety Torres Performed By: #### C VDTBH #### [facility] [address] [place] [address] Dr. Lety Torres Kaylah Krusei Not detected Normal NOT DETECTED [facility] Comment on above: Performed By: #### C MP #### [facility] [address] [place] [address] Dr. Lety Torres Performed By: #### C VDTBH #### [facility] [address] [place] [address] Dr. Lety Torres Kaylah Parapsilosis Not detected Normal NOT DETECTED [facility] Comment on above: Performed By: #### C MP #### [facility] [address] [place] [address] Dr. Lety Torres Performed By: #### C VDTBH #### [facility] [address] [place] [address] Dr. Lety Torres Kaylah Tropicalis Not detected Normal NOT DETECTED [facility] Comment on above: Performed By: #### C MP #### [facility] [address] [place] [address] Dr. Lety Torres Performed By: #### C VDTBH #### [facility] [address] [place] [address] Dr. Lety Torres CTX-M Resistant Gene Not detected Normal NOT DETECTED [facility] Comment on above: Performed By: #### C MP #### [facility] [address] [place] [address] Dr. Lety Torres Performed By: #### C VDTBH #### [facility] [address] [place] [address] Dr. Lety Torres E. Cloacae complex Not detected Normal NOT DETECTED [facility] Comment on above: Performed By: #### C MP #### [facility] [address] [place] [address] Dr. Lety Torres Performed By: #### C VDTBH #### [facility] [address] [place] [address] Dr. Lety Torres E. faecalis Not detected Normal NOT DETECTED [facility] Comment on above: Performed By: #### C MP #### [facility] [address] [place] [address] Dr. Lety Torres Performed By: #### C VDTBH #### [facility] [address] [place] [address] Dr. Lety Torres E. faecium Not detected Normal NOT DETECTED [facility] Comment on above: Performed By: #### C MP #### [facility] [address] [place] [address] Dr. Lety Torres Performed By: #### C VDTBH #### [facility] [address] [place] [address] Dr. Lety Torres Enterobacteriaceae Detected Abnormal NOT DETECTED [facility] Comment on above: Performed By: #### C MP #### [facility] [address] [place] [address] Dr. Lety Torres Performed By: #### C VDTBH #### [facility] [address] [place] [address] Dr. Lety Torres Escherichia coli Not detected Normal NOT DETECTED [facility] Comment on above: Performed By: #### C MP #### [facility] [address] [place] [address] Dr. Lety Torres Performed By: #### C VDTBH #### [facility] [address] [place] [address] Dr. Lety Torres H. influenzae Not detected Normal NOT DETECTED [facility] Comment on above: Performed By: #### C MP #### [facility] [address] [place] [address] Dr. Lety Torres Performed By: #### C VDTBH #### [facility] [address] [place] [address] Dr. Lety Torres IMP Resistant Gene Not detected Normal NOT DETECTED [facility] Comment on above: Performed By: #### C MP #### [facility] [address] [place] [address] Dr. Lety Torres Performed By: #### C VDTBH #### [facility] [address] [place] [address] Dr. Lety Torres K. oxytoca Not detected Normal NOT DETECTED [facility] Comment on above: Performed By: #### C MP #### [facility] [address] [place] [address] Dr. Lety Torres Performed By: #### C VDTBH #### [facility] [address] [place] [address] Dr. Lety Torres K. pneumoniae Not detected Normal NOT DETECTED [facility] Comment on above: Performed By: #### C MP #### [facility] [address] [place] [address] Dr. Lety Torres Performed By: #### C VDTBH #### [facility] [address] [place] [address] Dr. Lety Torres Klebsiella aerogenes Not detected Normal NOT DETECTED [facility] Comment on above: Performed By: #### C MP #### [facility] [address] [place] [address] Dr. Lety Torres Performed By: #### C VDTBH #### [facility] [address] [place] [address] Dr. Lety Torres KPC Resistant Gene Not detected Normal NOT DETECTED [facility] Comment on above: Performed By: #### C MP #### [facility] [address] [place] [address] Dr. Lety Torres Performed By: #### C VDTBH #### [facility] [address] [place] [address] Dr. Lety Torres List. monocytogenes Not detected Normal NOT DETECTED [facility] Comment on above: Performed By: #### C MP #### [facility] [address] [place] [address] Dr. Lety Torres Performed By: #### C VDTBH #### [facility] [address] [place] [address] Dr. Lety Torres Mcr-1 Resistant Gene Not detected Normal NOT DETECTED [facility] Comment on above: Performed By: #### C MP #### [facility] [address] [place] [address] Dr. Lety Torres Performed By: #### C VDTBH #### [facility] [address] [place] [address] Dr. Lety Torres mecA/C Not detected Normal NOT DETECTED [facility] Comment on above: Performed By: #### C MP #### [facility] [address] [place] [address] Dr. Lety Torres Performed By: #### C VDTBH #### [facility] [address] [place] [address] Dr. Lety Torres mecA/C MREJ Not detected Normal NOT DETECTED [facility] Comment on above: Performed By: #### C MP #### [facility] [address] [place] [address] Dr. Lety Torres Performed By: #### C VDTBH #### [facility] [address] [place] [address] Dr. Lety Torres N. meningitidis Not detected Normal NOT DETECTED [facility] Comment on above: Performed By: #### C MP #### [facility] [address] [place] [address] Dr. Lety Torres Performed By: #### C VDTBH #### [facility] [address] [place] [address] Dr. Lety Torres NDM Resistant Gene Not detected Normal NOT DETECTED [facility] Comment on above: Performed By: #### C MP #### [facility] [address] [place] [address] Dr. Lety Torres Performed By: #### C VDTBH #### [facility] [address] [place] [address] Dr. Lety Torres Oxa-48-like Not detected Normal NOT DETECTED [facility] Comment on above: Performed By: #### C MP #### [facility] [address] [place] [address] Dr. Lety Torres Performed By: #### C VDTBH #### [facility] [address] [place] [address] Dr. Lety Torres Proteus Detected Abnormal NOT DETECTED [facility] Comment on above: Performed By: #### C MP #### [facility] [address] [place] [address] Dr. Lety Torres Performed By: #### C VDTBH #### [facility] [address] [place] [address] Dr. Lety Torres Pseud. aeruginosa Not detected Normal NOT DETECTED [facility] Comment on above: Performed By: #### C MP #### [facility] [address] [place] [address] Dr. Lety Torres Performed By: #### C VDTBH #### [facility] [address] [place] [address] Dr. Lety Torres S. maltophilia Not detected Normal NOT DETECTED [facility] Comment on above: Performed By: #### C MP #### [facility] [address] [place] [address] Dr. eLty Torres Performed By: #### C VDTBH #### [facility] [address] [place] [address] Dr. Lety Torres Salmonella Not detected Normal NOT DETECTED [facility] Comment on above: Performed By: #### C MP #### [facility] [address] [place] [address] Dr. Lety Torres Performed By: #### C VDTBH #### [facility] [address] [place] [address] Dr. Lety Torres Seratia marcescens Not detected Normal NOT DETECTED [facility] Comment on above: Performed By: #### C MP #### [facility] [address] [address] [address] Lety Torres Performed By: #### C VDTBH #### [facility] [address] [place] [address] Dr. Lety Torres Site: left ac Normal [facility] Comment on above: Performed By: #### C MP #### [facility] [address] [place] [address] Dr. Lety Torres Performed By: #### C VDTBH #### [facility] [address] [place] [address] Dr. Lety Torres Staph. aureus Not detected Normal NOT DETECTED [facility] Comment on above: Performed By: #### C MP #### [facility] [address] [place] [address] Dr. Lety Torres Performed By: #### C VDTBH #### [facility] [address] [place] [address] Dr. Lety Torres Staph. epidermidis Not detected Normal NOT DETECTED [facility] Comment on above: Performed By: #### C MP #### [facility] [address] [place] [address] Dr. Lety Torres Performed By: #### C VDTBH #### [facility] [address] [place] [address] Dr. Lety Torres Staph. lugdunensis Not detected Normal NOT DETECTED [facility] Comment on above: Performed By: #### C MP #### [facility] [address] [place] [address] Dr. Lety Torres Performed By: #### C VDTBH #### [facility] [address] [place] [address] Dr. Lety Torres Staphylococcus Not detected Normal NOT DETECTED [facility] Comment on above: Performed By: #### C MP #### [facility] [address] [place] [address] Dr. Lety Torres Performed By: #### C VDTBH #### [facility] [address] [place] [address] Dr. Lety Torres Strep. agalactiae Not detected Normal NOT DETECTED [facility] Comment on above: Performed By: #### C MP #### [facility] [address] [place] [address] Dr. Lety Torres Performed By: #### C VDTBH #### [facility] [address] [place] [address] Dr. Lety Torres Strep. pneumoniae Not detected Normal NOT DETECTED [facility] Comment on above: Performed By: #### C MP #### [facility] [address] [place] [address] Dr. Lety Torres Performed By: #### C VDTBH #### [facility] [address] [place] [address] Dr. Lety Torres Strep. pyogenes Not detected Normal NOT DETECTED [facility] Comment on above: Performed By: #### C MP #### [facility] [address] [place] [address] Dr. Lety Torres Performed By: #### C VDTBH #### [facility] [address] [place] [address] Dr. Lety Torres Streptococcus Not detected Normal NOT DETECTED [facility] Comment on above: Performed By: #### C MP #### [facility] [address] [place] [address] Dr. Lety Torres Performed By: #### C VDTBH #### [facility] [address] [place] [address] Dr. Lety Torres Dede/B Resist. Gene Not detected Normal NOT DETECTED [facility] Comment on above: Performed By: #### C MP #### [facility] [address] [place] [address] Dr. Lety Torres Performed By: #### C VDTBH #### [facility] [address] [place] [address] Dr. Lety Torres VIM Resistant Gene Not detected Normal NOT DETECTED [facility] Comment on above: Performed By: #### C MP #### [facility] [address] [place] [address] Dr. Lety Torres Performed By: #### C VDTBH #### [facility] [address] [place] [address] Dr. Lety Torres CBC AUTO DIFFon 12-25-2021 BASO # 0.0 103/ul Normal 0.0-0.1 [facility] Comment on above: Performed By: #### P OCGLUC #### [facility] [address] [place] [address] Dr. Lety Torres Basophils/100 WBC (Bld) 0.3 % Normal 0.2-2.0 [facility] Comment on above: Performed By: #### P OCGLUC #### [facility] [address] [place] [address] Dr. Lety Torres EO # 0.0 103/ul Normal 0.0-0.7 [facility] Comment on above: Performed By: #### P OCGLUC #### [facility] [address] [place] [address] Dr. Lety Torres Eosinophils/100 WBC (Bld) 0.1 % Critically low 0.9-7.0 [facility] Comment on above: Performed By: #### P OCGLUC #### [facility] [address] [place] [address] Dr. Lety Torres Erythrocyte distribution width (RBC) [Ratio] 13.8 % Normal 11.0-15.0 [facility] Comment on above: Performed By: #### P OCGLUC #### [facility] [address] [place] [address] Dr. Lety Torres Hematocrit (Bld) [Volume fraction] 50.5 % Normal 42.0-54.0 [facility] Comment on above: Performed By: #### P OCGLUC #### [facility] [address] [place] [address] Dr. Lety Torres Hemoglobin (Bld) [Mass/Vol] 16.8 g/dL Normal 14.0-18.0 [facility] Comment on above: Performed By: #### P OCGLUC #### [facility] [address] [place] [address] Dr. Lety Torres IG # 0.04 10e3/ul Critically high 0.00-0.03 [facility] Comment on above: Performed By: #### P OCGLUC #### [facility] [address] [place] [address] Dr. Lety Torres IG % 0.6 % Critically high 0.0-0.5 [facility] Comment on above: Performed By: #### P OCGLUC #### [facility] [address] [place] [address] Dr. Lety Torres LYMPH # 0.4 103/ul Critically low 1.2-3.8 [facility] Comment on above: Performed By: #### P OCGLUC #### [facility] [address] [place] [address] Dr. Lety Torres Lymphocytes/100 WBC (Bld) 5.8 % Critically low 20.5-60.0 [facility] Comment on above: Performed By: #### P OCGLUC #### [facility] [address] [place] [address] Dr. Lety Torres MANUAL DIFF REQ NO Normal [facility] Comment on above: Performed By: #### P OCGLUC #### [facility] [address] [place] [address] Dr. Lety Torres MCH (RBC) [Entitic mass] 30.3 pg Normal 25.9-34.0 [facility] Comment on above: Performed By: #### P OCGLUC #### [facility] [address] [place] [address] Dr. Lety Torres MCHC (RBC) [Mass/Vol] 33.3 g/dL Normal 29.9-35.2 [facility] Comment on above: Performed By: #### P OCGLUC #### [facility] [address] [place] [address] Dr. Lety Torres MCV (RBC) [Entitic vol] 91.0 fL Normal 80.0-94.0 [facility] Comment on above: Performed By: #### P OCGLUC #### [facility] [address] [place] [address] Dr. Lety Torres MONO # 0.1 103/ul Critically low 0.3-0.8 [facility] Comment on above: Performed By: #### P OCGLUC #### [facility] [address] [place] [address] Dr. Lety Torres Monocytes/100 WBC (Bld) 1.0 % Critically low 1.7-12.0 [facility] Comment on above: Performed By: #### P OCGLUC #### [facility] [address] [place] [address] Dr. Lety Torres NEUT # 6.5 103/ul Normal 1.4-6.5 [facility] Comment on above: Performed By: #### P OCGLUC #### [facility] [address] [place] [address] Dr. Lety Torres Neutrophils/100 WBC (Bld) 92.2 % Critically high 43.0-75.0 [facility] Comment on above: Performed By: #### P OCGLUC #### [facility] [address] [place] [address] Dr. Lety Torres Platelet mean volume (Bld) [Entitic vol] 9.5 fL Normal 9.5-13.5 [facility] Comment on above: Performed By: #### P OCGLUC #### [facility] [address] [place] [address] Dr. Lety Torres PLT 186 103/ul Normal 150-450 [facility] Comment on above: Performed By: #### P OCGLUC #### [facility] [address] [place] [address] Dr. Lety Torres RBC 5.55 106/ul Normal 4.70-6.10 [facility] Comment on above: Performed By: #### P OCGLUC #### [facility] [address] [place] [address] Dr. Lety Torres WBC 7.0 103/ul Normal 4.0-11.0 [facility] Comment on above: Performed By: #### P OCGLUC #### [facility] [address] [place] [address] Dr. Lety Torres CULTURE BLOODon 08-12-2022 Microscopic examination of blood, culture Culture Observations: NO GROWTH AT 5 DAYS. Normal [facility] Comment on above: Performed By: #### C MP #### [facility] [address] [place] [address] Dr. Lety Torres CULTURE URINEon 12-25-2021 CULTURE URINE Culture Observations : No growth Normal [facility] Comment on above: Performed By: #### C MP #### [facility] [address] [place] [address] Dr. Lety Torres Covid-19 PCR (CVDTB)on 12-14 SARS-CoV-2 (COVID-19) RNA ISABELLA+probe Ql (Unsp spec) Not detected Normal NOT DETECTED [facility] Comment on above: Result Comment: When diagnostic [...] for this test is supported by the [place] of Health and Human Service's declaration that [...] used). Performed By: #### C VDTBH #### [facility] [address] [place] [address] Dr. Lety Torres ER URINE PROFILEon 2 Bilirubin Ql (U) Negative Normal NEGATIVE [facility] Comment on above: Performed By: #### C MP #### [facility] [address] [place] [address] Dr. Lety Torres Clarity (U) SL CLOUDY Abnormal CLEAR [facility] Comment on above: Performed By: #### C MP #### [facility] [address] [place] [address] Dr. Lety Torres Color (U) LT. YELLOW Normal YELLOW [facility] Comment on above: Performed By: #### C MP #### [facility] [address] [place] [address] Dr. Lety SIERRA A micrscopic examina tion will be performed if indicated. Normal [facility] Comment on above: Performed By: #### C MP #### [facility] [address] [place] [address] Dr. Lety Torres Glucose Ql (U) Negative Normal NEGATIVE [facility] Comment on above: Performed By: #### C MP #### [facility] [address] [place] [address] Dr. Ltey Torres Hemoglobin Ql (U) SMALL Abnormal NEGATIVE [facility] Comment on above: Performed By: #### C MP #### [facility] [address] [place] [address] Dr. Lety Torres Ketones Ql (U) Negative Normal NEGATIVE [facility] Comment on above: Performed By: #### C MP #### [facility] [address] [place] [address] Dr. Lety Torres LEUKOCYTES SMALL Abnormal NEGATIVE [facility] Comment on above: Performed By: #### C MP #### [facility] [address] [place] [address] Dr. Lety Torres Nitrite Ql (U) Positive Abnormal NEGATIVE [facility] Comment on above: Performed By: #### C MP #### [facility] [address] [place] [address] Dr. Lety Torres pH (U) 6.0 [pH] Normal 5-9 [facility] Comment on above: Performed By: #### C MP #### [facility] [address] [place] [address] Dr. Lety Torres SPEC GRAVITY 1.020 Normal 1.005-<=1. 025 [facility] Comment on above: Performed By: #### C MP #### [facility] [address] [place] [address] Dr. Lety Torres UA PROTEIN TRACE Normal NEGATIVE/ TRACE [facility] Comment on above: Performed By: #### C MP #### [facility] [address] [address] [address] Lety Torres UR MICRO IND INDICATED Normal [facility] Comment on above: Performed By: #### C MP #### [facility] [address] [place] [address] Dr. Lety Torres Urobilinogen Qn (U) 0.2 {Curt'U}/dL Normal 0.2 - 1. 0 [facility] Comment on above: Performed By: #### C MP #### [facility] [address] [place] [address] Dr. Lety Torres LACTATE/LACTIC ACIDon 2021 Lactate [Moles/Vol] 1.8 mmol/L Normal 0.4-1.9 [facility] Comment on above: Performed By: #### L ACT #### [facility] [address] [place] [address] Dr. Lety Torres Lactate [Moles/Vol] 2.5 mmol/L Critically high 0.4-1.9 [facility] Comment on above: Performed By: #### C MP #### [facility] [address] [place] [address] Dr. Lety Torres POINT OF CARE GLUCOSEon 12-14 Glucose [Mass/Vol] 83 mg/dL Normal 74-106 [facility] Comment on above: Performed By: #### P OCGLUC #### [facility] [address] [place] [address] Dr. Lety Torres Glucose [Mass/Vol] 45 mg/dL Critically low 74-106 [facility] Comment on above: Result Comment: Resu lt Not Confirmed Performed By: #### P OCGLUC #### [facility] [address] [place] [address] Dr. Lety Torres Glucose [Mass/Vol] 44 mg/dL Critically low 74-106 [facility] Comment on above: Result Comment: Will Repeat Test Performed By: #### P OCGLUC #### [facility] [address] [place] [address] Dr. Lety Torres Glucose [Mass/Vol] 81 mg/dL Normal 74-106 [facility] Comment on above: Performed By: #### C MP #### [facility] [address] [place] [address] Dr. Lety Torres Glucose [Mass/Vol] 146 mg/dL Critically high 74-106 [facility] Comment on above: Performed By: #### P OCGLUC #### [facility] [address] [place] [address] Dr. Lety Torres Glucose [Mass/Vol] 213 mg/dL Critically high 74-106 [facility] Comment on above: Performed By: #### P OCGLUC #### [facility] [address] [place] [address] Dr. Lety Torres PROF 14(COMP METB)on 022 Albumin [Mass/Vol] 3.8 g/dL Normal 3.4-5.0 [facility] Comment on above: Performed By: #### P OCGLUC #### [facility] [address] [place] [address] Dr. Lety Torres Albumin/Globulin [Mass ratio] 0.9 {ratio} Normal [facility] Comment on above: Performed By: #### P OCGLUC #### [facility] [address] [place] [address] Dr. Lety Torres ALP [Catalytic activity/Vol] 96 U/L Normal 46-116 [facility] Comment on above: Performed By: #### P OCGLUC #### [facility] [address] [place] [address] Dr. Lety Torres ALT [Catalytic activity/Vol] 22 U/L Normal 16-63 [facility] Comment on above: Performed By: #### P OCGLUC #### [facility] [address] [place] [address] Dr. Lety Torres Anion gap [Moles/Vol] 16.7 mmol/L Normal [facility] Comment on above: Performed By: #### P OCGLUC #### [facility] [address] [place] [address] Dr. Lety Torres AST [Catalytic activity/Vol] 16 U/L Normal 15-37 [facility] Comment on above: Performed By: #### P OCGLUC #### [facility] [address] [address] [address] Lety Torres Bilirubin [Mass/Vol] 1.3 mg/dL Critically high 0.2-1.0 [facility] Comment on above: Performed By: #### P OCGLUC #### [facility] [address] [address] [address] Lety Torres Calcium [Mass/Vol] 9.3 mg/dL Normal 8.5-10.1 [facility] Comment on above: Performed By: #### P OCGLUC #### [facility] [address] [place] [address] Dr. Lety Torres Chloride [Moles/Vol] 102 mmol/L Normal 98-107 [facility] Comment on above: Performed By: #### P OCGLUC #### [facility] [address] [place] [address] Dr. Lety Torres CO2 [Moles/Vol] 21.8 mmol/L Normal 21.0-32.0 [facility] Comment on above: Performed By: #### P OCGLUC #### [facility] [address] [place] [address] Dr. Lety Torres Creatinine [Mass/Vol] 1.52 mg/dL Critically high 0.70-1.30 [facility] Comment on above: Performed By: #### P OCGLUC #### [facility] [address] [place] [address] Dr. Lety Torres EGFR-AF NIGERIEN 53 mL/min/1.73m2 Critically low >=60 [facility] Comment on above: Performed By: #### P OCGLUC #### [facility] [address] [place] [address] Dr. Lety Torres EGFR-NON AF NIGERIEN 44 mL/min/1.73m2 Critically low >=60 [facility] Comment on above: Performed By: #### P OCGLUC #### [facility] [address] [place] [address] Dr. Lety Torres Globulin (S) [Mass/Vol] 4.2 g/dL Normal [facility] Comment on above: Performed By: #### P OCGLUC #### [facility] [address] [place] [address] Dr. Lety Torres Glucose [Mass/Vol] 208 mg/dL Critically high 74-106 [facility] Comment on above: Performed By: #### P OCGLUC #### [facility] [address] [place] [address] Dr. Lety Torres Potassium [Moles/Vol] 4.5 mmol/L Normal 3.5-5.1 [facility] Comment on above: Performed By: #### P OCGLUC #### [facility] [address] [place] [address] Dr. Lety Torres Protein [Mass/Vol] 8.0 g/dL Normal 6.4-8.2 [facility] Comment on above: Performed By: #### P OCGLUC #### [facility] [address] [place] [address] Dr. Lety Torres Sodium [Moles/Vol] 136 mmol/L Normal 136-145 [facility] Comment on above: Performed By: #### P OCGLUC #### [facility] [address] [place] [address] Dr. Lety Torres Urea nitrogen [Mass/Vol] 21.0 mg/dL Critically high 7.0-18.0 [facility] Comment on above: Performed By: #### P OCGLUC #### [facility] [address] [place] [address] Dr. Lety Torres Urea nitrogen/Creatinine [Mass ratio] 13.8 mg/mg Normal [facility] Comment on above: Performed By: #### P OCGLUC #### [facility] [address] [place] [address] Dr. Lety Torres URINE MICROSCOPIC ONLYon BACTERIA TRACE Abnormal NONE SEEN [facility] Comment on above: Performed By: #### C MP #### [facility] [address] [place] [address] Dr. Lety Torres Bacteria identified Cx Nom (U) INDICATED Normal [facility] Comment on above: Performed By: #### C MP #### [facility] [address] [place] [address] Dr. Lety Torres CAST NONE SEEN Normal NONE SEEN [facility] Comment on above: Performed By: #### C MP #### [facility] [address] [place] [address] Dr. Lety Torres Crystals LM Nom (Urine sed) NONE SEEN Normal NONE SEEN [facility] Comment on above: Performed By: #### C MP #### [facility] [address] [place] [address] Dr. Lety Torres Epithelial cells LM Ql (Urine sed) RARE Normal NONE SEEN /RARE [facility] Comment on above: Performed By: #### C MP #### [facility] [address] [place] [address] Dr. Lety Torres MUCOUS NONE SEEN Normal NONE SEEN [facility] Comment on above: Performed By: #### C MP #### [facility] [address] [place] [address] Dr. Lety Torres RBC NONE SEEN Abnormal 0-2 [facility] Comment on above: Performed By: #### C MP #### [facility] [address] [place] [address] Dr. Lety Torres WBC 5-10 Abnormal NONE SEEN [facility] Comment on above: Performed By: #### C MP #### [facility] [address] [place] [address] Dr. Lety Torres YEAST PRESENT Abnormal NONE SEEN [facility] Comment on above: Performed By: #### C MP #### [facility] [address] [place] [address] Dr. Lety Torres XR CHEST 1 Von [...] GREGORY ELIZABETH Date: 2021-12-25 02:15 Normal [facility] PROF CHEM 8 (BAS METB)on Anion gap [Moles/Vol] 16.5 mmol/L Normal [facility] Comment on above: Performed By: #### B MP #### [facility] [address] [address] [address] Lety Torres Calcium [Mass/Vol] 8.9 mg/dL Normal 8.5-10.1 [facility] Comment on above: Performed By: #### B MP #### [facility] [address] [address] [address] Lety Torres Chloride [Moles/Vol] 108 mmol/L Critically high 98-107 [facility] Comment on above: Performed By: #### B MP #### [facility] [address] [address] [address] Lety Torres CO2 [Moles/Vol] 21.2 mmol/L Normal 21.0-32.0 [facility] Comment on above: Performed By: #### B MP #### [facility] [address] [address] [address] Lety Torres Creatinine [Mass/Vol] 1.32 mg/dL Critically high 0.70-1.30 [facility] Comment on above: Performed By: #### B MP #### [facility] [address] [address] [address] Lety Torres EGFR-AF NIGERIEN >60 Normal >=60 [facility] Comment on above: Performed By: #### B MP #### [facility] [address] [address] [address] Lety Torres EGFR-NON AF NIGERIEN 52 mL/min/1.73m2 Critically low >=60 [facility] Comment on above: Performed By: #### B MP #### [facility] [address] [address] [address] Lety Torres Glucose [Mass/Vol] 260 mg/dL Critically high 74-106 [facility] Comment on above: Performed By: #### B MP #### [facility] [address] [address] [address] Lety Torres Potassium [Moles/Vol] 4.7 mmol/L Normal 3.5-5.1 [facility] Comment on above: Performed By: #### B MP #### [facility] [address] [address] [address] Lety Torres Sodium [Moles/Vol] 141 mmol/L Normal 136-145 [facility] Comment on above: Performed By: #### B MP #### [facility] [address] [address] [address] Lety Torres Urea nitrogen [Mass/Vol] 23.0 mg/dL Critically high 7.0-18.0 [facility] Comment on above: Performed By: #### B MP #### [facility] [address] [address] [address] Lety Torres Urea nitrogen/Creatinine [Mass ratio] 17.4 mg/mg Normal [facility] Comment on above: Performed By: #### B MP #### [facility] [address] [address] [address] Lety Torres CTA HEADon 11-02-2021 CTA HEAD [facility] [address] [place] [id number] Patient Name: PATRICK RUTHERFORD : 1940 Sex: M Age: Race: White Pt. Location: [facility] Patient Status: O Ordered Date: 09/11/2021 11:40:00 AM Completed Date: 11/02/2021 03:40 PM Requesting Provider: TRIPP KENNY Attending Provider: TRIPP KENNY Report Copy To: VERONICA ADAME Signs & Symptoms: I65.23 Occlusion and stenosis of bilateral carotid arteries I10 History: Zakiya DM? on metformin? kidney dis? Will have labs done at [facility] Comments: Exam: CTA HEAD CTA HEAD 11/02/2021 [...] stenosis. Electronically signed: Ernesto Villasenor. Transcribed by: [email or web address], User Resident: ERNESTO VILLASENOR Electronically Signed by: ERNESTO VILLASENOR @ 11/02/2021 04:25 PM I personally read this/these film(s) with this resident Normal [facility] CTA NECKon 11-02-2021 CTA NECK [facility] [address] [place] [address] Patient Name: PATRICK [...] DM - will have labs done at [facility] Comments: Exam: CTA NECK CTA NECK 11/02/2021 [...] viewed on a separate workstation. The [place] Symptomatic Carotid Endarterectomy Trial (NASCET) method for [...] achievable Electronically signed: Ernesto Villasenor. Transcribed by: [email or web address], User Resident: ERNESTO VILLASENOR Electronically Signed by: ERNESTO VILLASENOR @ 11/02/2021 04:32 PM I personally read this/these film(s) with this resident Normal [facility] CREATININEon 10-15-2021 Creatinine [Mass/Vol] 1.25 mg/dL Normal 0.70-1.30 [facility] Comment on above: Performed By: #### P OCGLUC #### [facility] [address] [address] [address] Lety Torres EGFR-AF NIGERIEN >60 Normal >=60 [facility] Comment on above: Performed By: #### P OCGLUC #### [facility] [address] [place], [place] [address] Dr. Lety Torres EGFR-NON AF NIGERIEN 55 mL/min/1.73m2 Critically low >=60 [facility] Comment on above: Performed By: #### P OCGLUC #### [facility] [address] [place], [place] [address] Dr. Lety Torres Vital Signs Date Time Vital Sign Value Performing Clinician Facility 06-20-2023 15:30-0500 Blood Pressure Location Ted CEJA [facility] 06-20-2023 15:30-0500 Diastolic blood pressure 68 mm[Hg] Ted CEJA [facility] 06-20-2023 15:30-0500 Heart rate 62 /min Ted CEJA [facility] 06-20-2023 15:30-0500 Respiratory rate 16 /min Ted CEJA [facility] [place] 06-20-2023 15:30-0500 Systolic blood pressure 117 mm[Hg] Ted CEJA [facility] [place] 01-12-2023 14:15-0400 Body height 167.64 cm Imad Asaad Other [facility] Other 01-12-2023 14:15-0400 Body mass index (BMI) [Ratio] 26.55 kg/m2 Imad Asaad Other [facility] Other 01-12-2023 14:15-0400 Body weight 74.62 kg Imad Asaad Other [facility] Other 01-12-2023 14:15-0400 Diastolic blood pressure 52 mm[Hg] Imad Asaad Other [facility] Other 01-12-2023 14:15-0400 Systolic blood pressure 105 mm[Hg] Imad Asaad Other [facility] Other 09-22-2022 14:24-0400 Blood Pressure Location Tevin PURDY [facility] [place] 09-22-2022 14:24-0400 Diastolic blood pressure 70 mm[Hg] Tevin NILL [facility] [place] 09-22-2022 14:24-0400 Heart rate 72 /min Tevin NILL [facility] [place] 09-22-2022 14:24-0400 Respiratory rate 16 /min Tevin NILL [facility] [place] 09-22-2022 14:24-0400 Systolic blood pressure 156 mm[Hg] Tevin NILL [facility] [place] 06-09-2022 15:10-0500 Blood Pressure Location SAMANTHA MICHAEL [facility] 06-09-2022 15:10-0500 Diastolic blood pressure 74 mm[Hg] SAMANTHA MICHAEL [facility] 06-09-2022 15:10-0500 Heart rate 68 /min SAMANTHA MICHAEL [facility] 06-09-2022 15:10-0500 Respiratory rate 16 /min SAMANTHA MICHAEL [facility] 06-09-2022 15:10-0500 Systolic blood pressure 138 mm[Hg] SAMANTHA MICHAEL [facility] 12-22-2021 15:10-0400 Blood Pressure Location Ted CEJA [facility] 12-22-2021 15:10-0400 Diastolic blood pressure 88 mm[Hg] Ted CEJA [facility] 12-22-2021 15:10-0400 Heart rate 86 /min Ted CEJA [facility] 12-22-2021 15:10-0400 Systolic blood pressure 179 mm[Hg] Ted CEJA [facility] 11-27-2021 10:25-0400 Blood Pressure Location [facility] 11-27-2021 10:25-0400 Diastolic blood pressure 67 mm[Hg] [facility] CEJA [facility] 11-27-2021 10:25-0400 Heart rate 71 /min Ted CEJA [facility] 11-27-2021 10:25-0400 Respiratory rate 16 /min Ted CEJA [facility] 11-27-2021 10:25-0400 Systolic blood pressure 139 mm[Hg] Ted CEJA [facility] Encounters Encounter Date Encounter Type Care Provider Facility Start: 06-25-2024 ambulatory Ted CEJA [facility] Start: 06-20-2023 End: 06-21-2023 ambulatory Ted CEJA Facility:[facility] Start: 06-20-2023 End: 06-20-2023 Patient encounter procedure Ted CEJA [facility] Start: 01-31-2023 End: 01-31-2023 ambulatory Imad Asaad Other Located [facility] [employer] Other Start: 01-31-2023 Telephone encounter Imad Asaad [facility] Start: 01-18-2023 End: 01-18-2023 ambulatory Imad Asaad Facility:[facility] Start: 01-18-2023 End: 01-18-2023 ambulatory MD Veronica Adame Work Phone: [facility] Work Phone: Start: 01-18-2023 End: 01-18-2023 Patient encounter procedure MD Veronica Adame Work Phone: [facility] [place] Work Phone: Start: 01-16-2023 End: 01-16-2023 ambulatory MD Veronica Adame Work Phone: [facility] Work Phone: Start: 01-16-2023 End: 01-16-2023 Patient encounter procedure MD Veronica Adame Work Phone: [facility] [place] Work Phone: Start: 01-12-2023 End: 01-12-2023 Patient encounter procedure MD Veronica Adame Work Phone: [facility] [place] Work Phone: Start: 01-12-2023 End: 01-12-2023 ambulatory MD Veronica Adame Work Phone: [facility] Work Phone: Start: 01-12-2023 Office outpatient ne w 45 minutes Imad Asaad [facility] Start: 12-13-2022 End: 12-14-2022 ambulatory Ted CEJA Facility:[facility] Start: 10-06-2022 End: 10-07-2022 ambulatory Tevin PURDY Facility: [facility] Start: 09-29-2022 End: 09-30-[address] TEVIN PURDY . Facility: Start: 09-22-2022 End: 09-23-2022 ambulatory Tevin R FILIBERTOL Facility: [facility] Start: 09-22-2022 End: 09-22-2022 Patient encounter procedure Tevin R FILIBERTOL [facility] [place] Start: 09-06-2022 ambulatory Tevin R NILL Facility : [facility] Start: 06-09-2022 End: 06-09-2022 Patient encounter procedure SAMANTHA RODRIGUEZ [facility] Start: 03-29-2022 End: 03-30-2022 ambulatory [facility] Start: 03-08-2022 ambulatory [facility] Start: 02-23-2022 Evaluation and management of inpatient [facility] Start: 02-23-2022 Evaluation and management of inpatient [facility] Start: 02-22-2022 End: 02-24-2022 Evaluation and management of inpatient [facility] Start: 02-19-2022 End: 02-19-2022 ambulatory [facility] Start: 02-19-2022 End: 02-19-2022 Encounter for other preprocedural examination [facility] Start: 02-01-2022 Encounter for other preprocedural examination [facility] Start: 01-13-[address] VERONICA ADAME . Facili ty:[facility] Start: 12-25-2021 End: 12-28-[address] VERONICA ADAME . Facility: Start: 12-22-2021 End: 12-22-2021 Patient encounter procedure Ted CEJA [facility] Start: 11-27-2021 End: 11-27-2021 Patient encounter procedure Ted CEJA [facility] Start: 11-25-2021 ambulatory VERONICA ADAME Facility:[facility] Start: 11-23-2021 End: 11-24-[address] FRANCIE ARREGUIN Facility: Start: 11-02-2021 End: 11-03-2021 ambulatory VERONICA ADAME Facility:[facility] Start: 10-15-2021 End: 10-16-[address] VERONICA ADAME . Facility: Start: 10-06-2021 End: 10-06-2021 Patient encounter procedure SAMANTHA ORDRIGUEZ [facility] Start: 07-07-2021 End: 07-08-2021 ambulatory VERONICA ADAME Facility:[facility] Procedures Date Procedure Procedure Detail Performing Clinician Start: 09-29-2022 Colonoscopy Ted FAB LANDIS Start: 09-29-2022 Esophagogastroduodenoscopy Etd CEJA Start: 12-22-2021 Cystoscopy Ted FAB CALLEPatricia Bypass of stomach Ted LANDIS Carotid endarterectomy Jeramy PURDY Coronary artery bypass graft SAMANTHA RODRIGUEZ Cystoscopy SAMANTHA RODRIGUEZ Comment on above: 2006 Endarterectomy SAMANTHA Tesfaye Placement of stent SAMANTHA RODRIGUEZ Replacement of aortic valve SAMANTHA RODRIGUEZ Plan of Treatment Date Care Activity Detail Author Start: 01-18-2023 Stool culture Stool Culture [facility] Start: 01-16-2023 Ova and Parasite Concentrate Exam Ova and Parasite Concentrate Exam [facility] Bacteria identified in Stool by Culture [facility] Calprotectin [Mass/m ass] in Stool [facility] Elastase.pancreatic [Mass/mass] in Stool [facility] Ova and parasites identified in Unspecified specimen by Light microscopy [facility] Immunizations Immunization Date Immunization Notes Care Provider Elier stahl 05-12-2021 influenza virus vaccine, unspecified formulation SAMANTHA MICHAEL [facility] 05-12-2021 SARS-CoV-2 (COVID-19 ) mRNA-1273 vaccine SAMANTHA MICHAEL [facility] 11-11-2020 SARS-CoV-2 (COVID-19 ) mRNA BNT-162b2 vax SAMANTHA MICHAEL [facility] 10-20-2020 SARS-CoV-2 (COVID-19 ) mRNA BNT-162b2 vax SAMANTHA MICHAEL [facility] 02-25-2020 influenza virus vaccine, unspecified formulation SAMANTHA MICHAEL [facility] 03-10-2017 influenza virus vaccine, unspecified formulation SAMANTHA MICHAEL [facility] 02-19-2016 influenza virus vaccine, unspecified formulation SAMANTHA MICHAEL [facility] 02-19-2009 influenza, whole SAMANTHA PE RRY [facility] Payers Date Payer Category Payer Self-pay 2016 Unknown [id number] 1961 Medicare [id number] 1961 Self-pay [id number] 1961 Unknown [id number] 1940 Unknown [id number] 1940 Unknown [id number] 1940 Unknown [id number] 1940 Unknown [id number] 1940 Unknown [id number] 1940 Unknown [id number] 1940 Unknown [id number] 2.16.840.1.402018.3.579.2.593 1938 Unknown [id number] 2.16.840.1.106167.3.579.2.593 1938 Unknown [id number] 2.16.840.1.102644.3.579.2.727 1938 Unknown [id number] 2.16.840.1.776438.3.579.2.727 1938 Unknown [id number] 2.16.840.1.946891.3.579.2.72 1938 Unknown [id number] 2.16.840.1.038096.3.579.2.727 1938 Unknown [id number] 2.16.840.1.579631.3.579.2.727 1938 Unknown [id number] 2.16.840.1.224481.3.579.2.727 1938 Unknown [id number] 2.16.840.1.951367.3.579.2.727 Private Health Insurance [employer] [facility] PFFS M [id number] 00 Unknown [id number] 2.16.840.1.175643.3.579.2.531 Unknown [id number] 2.16.840.1.776950.3.579.2.531 Unknown [id number] 2.16.840.1.088298.3.579.2.531 Social History Date Type Detail Facility Tobacco smoking status [facility] Sex Assigned At Male [facility] Start: 11-27-2021 End: 09-22-2022 Tobacco smoking status Ex-smoker (finding) [facility] Tobacco smoking status Never [facility] Start: 1940 Sex Assigned At Male F [facility] Functional Status Date Assessment Result Facility 06-20-2023 Functional Status N/A [facility] 09-22-2022 Functional Status N/A [facility] 06-09-2022 Functional Status N/A [facility] 12-22-2021 Functional Status N/A [facility] 11-27-2021 Functional Status N/A [facility] [...] urethra. Follow these instructions at home: Take nhvw-kqm-bsfkdws and prescription medicines only as told by [...] provider. Document Revised: 11/18/2021 Document Reviewed: 11/18/2021 hint Patient Education 2022 O-CODES. Follow Up Care 12/13/2022 16:29:24 With:BRENNA LUU, Ted Echavarria, URL Address: [facility] [address] , [place] [address]- [phone] When: Unknown Comments:[facility] 01-12-2023 Evaluation note Encounter Date Diagnosis Assessment Notes Dec, Fecal incontinence (ICD-10 - R15.9) Dec, Constipation, unspecified constipation type (ICD-10 - K59.00) [facility] Other 05-10-2023 NoteChief Complaint consultation for loose [...] stenosis Spinal stenosis o (more content not included)...[facility] Comment on above:Result Comment: Electronically Signed By: GURWINDER LUU, Tevin Leiva\Date and Time Signed: 09/22/22 15:44 [id number] Hospital Discharge instructions Patient Education 06/09/2022 15:29:32 Prostatitis, Tkih-bi-Ejfb Prostatitis Prostatitis is swelling of the prostate gland. The prostate helps to make semen. It is below a man's bladder, in front of the rectum. There are different types of prostatitis. Follow these instructions at home: Take kzxc-cnj-eqwqrvx and prescription medicines only as told by [...] 10/31/2012 Document Revised: 04/14/2018 Document Reviewed: 01/20/2017 hint Patient Education 2020 O-CODES. 06/09/2022 15:29:30 Benign Prostatic Hyperplasia Benign Prostatic [...] urethra. Follow these instructions at home: Take rjcg-ith-jkuuzfa and prescription medicines only as told by [...] 05/02/2006 Document Revised: 03/27/2019 Document Reviewed: 06/06/2017 hint Patient Education 2020 O-CODES. Follow Up Care 06/03/2022 09:55:30 With:MICHAEL MOROCHO, SAMANTHA Diego, URL Address: [address] [place] [address] When:Within 6 Month(s) [facility] 11-14-2022 NoteSubjective Patient ID: Patrick Rutherford [...] the past 36 hour(s)). No follow-ups on file.[facility]10-24-2022 Note Subjective Patient ID: Patrick Rutherford is [...] the past 36 hour(s)). No follow-ups on file.[facility]10-12-2022 NotePatient will be going to [facility] at 6pm tonight. Spoke with the patient and his granddaughter about the discharge time. [facility]-12-2022 [facility] accepting. Sent therapy notes. Patient has received the covid vaccine but not the boosters.[facility]10-12-2022 Note02/24/22 1421 Time Calculation Start Time 1145 Stop Time 1205 Time Calculation (min) 20 min PT Evaluation Time Entry PT Evaluation (Moderate) Time Entry 20 Discharge recommendations: NAPOLEON Schwartz Krish is a 81 y.o. male Right carotid stenosis presented today to undergo TCA 02/22. 02/24/22 1145 PT Last Visit PT Received On 02/24/22 General Subjective Snipper notes BLE tremor and truncal tremor w/ standing, and mild to moderate gait ataxia. Patient states this has occurred for about a year. Has not discussed w/ MD. States occurs at home as well as during hospital stay. Snipper suggests pt see neurologist d/t Parkinsonian symptoms. 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 prepares light meals w/o cooking) [...] placement PT - OK to Discharge Yes nAtonia Torre PT, MPT [facility] 02-24-2022 NoteOccupational Therapy Occupational Therapy Evaluation Patient Name: Patrick Rutherford Today's Date: 02/24/2022 Time In: 1145 Time Out: 1205 OT Discharge Recommendations: USP facility placement General Visit Information: General Subjective: Pt pleasant and cooperative. Pt S[place] and requires repitition during communication. Pt typically [...] Lives With: Spouse, Son (Son is handicapped. Planner/Scheduler/PET WALKER provides assistance to son and completes household tasks and IADLs.) Home Adaptive Equipment: Cane, Walker rolling Home Layout: One level Home Access: Ramped entrance Bathroom Shower/Tub: Walk-in shower Bathroom Toilet: Handicapped height Bathroom Equipment: None Prior Level of Function Prior Function ADL Assistance: Independent Homemaking Assistance: Needs assistance (Planner/Scheduler/PET WALKER provides assistance with household tasks: cleaning, cooking, [...] all the time H (more content not included)...[facility]10-12-2022 NoteMet with the patient. He lives with his and son in a one story home with no steps to enter. He has a cane. He is active with [employer]. Called his family member Dina with his approval. She would like for him to try for [facility] in [place] at discharge. Sent referrals to all listed. 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 Pertinent Physical Exam [...] Center 03/08/2022 2:30 PM EDELMIRA Teague HVCVASENDO [facility] 03/17/2022 10:00 AM Nichelle Mathew NP CARD [facility] Test Results Pending At Discharge None Completed by ALLEN Beverly (more content not included)...[facility]10-11-20[facility]UnDet[facility] DAILY PROGRESS NOTE Subjective [...] Resident, PGY-2 I can be reached via [facility] [id number] Hospital10-11-2022 NotePt taken to room per transport, WARREN Koch receiving pt updated on event prior to sending pt to roomUnMcKitrick Hospital10-11-2022 NoteEkg completed, vascular notified of left bundle branch block on test, ok to sent pt to room 5140 at this time, no s/sx distress noted with pt.[facility]10-11-2022 NotePt c/o chest pressure/heart rate feeling slow, vs wnl, notified vascular, at bedside, will place orders for ekg/trop. Pt w/o s/sx distress notedUnMcKitrick Hospital10-11-2022 NoteSpoke with Ashley with vascular update given on mag level of 1.4, will place orders for replacementUnMcKitrick Hospital10-11-2022 NotePatient asymptomaticUnMcKitrick Hospital10-11-2022 EDELMIRA Phillips notified of new scant blood noted to dressing, no new orders at this time, will continue to monitorUnMcKitrick Hospital10-10-2022 Note Patient: Patrick Rutherford Procedure Summary Date: 02/22/22 Room / Location: [address] / [facility] Operating Room Anesthesia Start: 1526 Anesthesia Stop: [...] events for this encounter. Lizz Larsen MD Floor Hand PGY-2 02/22/2022 5:42 PMUnMcKitrick Hospital10-10-2022 NoteArterial Line: Date/Time: 02/22/2022 3:55 PM [...] procedure well with no complications. Staffing Performed: resident/PODIATRY DOCTOR/CAA Resident/PODIATRY DOCTOR: Lizz Larsen MDUnMcKitrick Hospital10-10-2022 NoteAirway Date/Time: 02/22/2022 3:38 PM Urgency: elective Airway not difficult General Information and Staff Patient location during procedure: OR Anesthesiologist: Kwabena Meza MD Resident/PODIATRY DOCTOR/CAA: Lizz Larsen MD Performed: resident/PODIATRY DOCTOR/CAA and other anesthesia staff Indications and Patient [...] 0 Additional Comments Randal Guillory student performed intubationKettering Health10-10-2022 NotePatient: Oral M Rutherford Procedure Information Date/Time: 02/22/22 1445 Procedure: Right Transcarotid Artery Revascularization vs Right Carotid Endarterectomy (Right) Location: [facility] OR [address] [place] [address] / [facility] Operating Room Surgeons: Jazz Diamond MD Relevant [...] with resident and medical student. Additional Equipment RequestsKettering Health08-09-2022 Hospital Discharge instructions Patient Education 12/22/2021 15:22:24 [...] urethra. Follow these instructions at home: Take rmct-hgp-vcfgyko and prescription medicines only as told by [...] 05/02/2006 Document Revised: 03/27/2019 Document Reviewed: 06/06/2017 hint Patient Education 2020 O-CODES. Follow Up Care 12/09/2021 11:45:24 With:BRENNA LUU, ABRIL Bernal Address: [facility] [address] , [place] [address]- When:Within 3 Month(s) [facility] 07-15-2022 Hospital Discharge instructions Patient Education 11/27/2021 [...] alcohol may irritate the prostate. Medicines Take wfox-lni-uotnaqn and prescription medicines only as told by [...] Document Reviewed: 02/16/2018 Sudha Patient Education 2020 [employer] Follow Up Care 10/26/2021 11:31:21 With:Ted CEJA MD, URL Address: [address] [place] [address] [place] [address]- When: Unknown [facility] 04-26-2022 Hospital Discharge instructions Follow Up Care 09/08/2021 15:16:10 With:SAMANTHA RODRIGUEZ PA-C, URL Address: [address] [place] [phone] When: Unknown [facility] Evaluation + Plan note No data available for this section [facility] Evaluation + Plan note Future Appointments Appointment Date:03/01/2022 01:15:00 PM Scheduled Provider:Ted CEJA MD Location:[facility] Appointment Type:URO Office Visit [facility] Evaluation + Plan note Future Appointments Appointment Date:12/13/2022 03:00:00 PM Scheduled Provider:Ted CEJA MD Location:[facility] Appointment Type:URO Office Visit [facility] evaluation + Plan note Future Appointments Appointment Date:06/25/2024 03:00:00 PM Scheduled Provider:Ted CEJA MD Location:[facility] Appointment Type:URO Office Visit Future Scheduled Tests Laboratory* Creatinine 10/06/22 Radiology* CT Abdomen/Pelvis w/ Contrast 10/06/22 [facility] evaliibyxd noteNo assessment information available [facility] Work Phone: evalunacjl noteNo InformationNort [employer] Other History general Narrative - Reported* Type Description Date Medical History Diabetes Medical History HTN (hypertension) Medical History Hypercholesteremia Medical History Enlarged prostate Medical History Hypothyroid Surgical History C Artery Surgical History heart stent Surgical History carotid see Surgical History Stent x 1 Heart Surgical History Stent x 1 neck Surgical History triple bypass 08/2016 Hospitalization History see above [facility] Other Hospital Discharge instructions No data available for this section General Surgery [employer] note No data available for this section [facility] Summary Purpose Family History No Family [...] and content) DATE CREATED AUTHOR 12/01/2021 [facility] DATE CREATED AUTHOR AUTHOR'S ORGANIZ ATION 04/09/2022 [facility] DATE CREATED AUTHOR AUTHOR'S ORGANIZ ATION 09/29/2022 [facility] DATE CREATED AUTHOR AUTHOR'S ORGANIZ ATION 02/05/2023 [facility] DATE CREATED AUTHOR AUTHOR'S ORGANIZ ATION 06/21/2023 [facility] REASON FOR VISIT (unrecogniz ed section [...] BE BASED ON THE PRIMARY CLINICAL RECORDS. [facility], [facility]. provides no warranty or guarantee of the accuracy or completeness of information in this document.
== END 2023-12-27 15:57 | disposition home or self-care (01) ==
LOC: RAD 15:57
PROVIDERS: PCP Family Medicine; Visit Provider Family Medicine
DX: M54.16 Radiculopathy, lumbar region (principal)
CPT/HCPCS: 72110

== ENCOUNTER 2024-01-11 15:20 | Outpatient (RCR) | payer MEDICARE, BC, SELFPAY | END 2024-01-12 13:44 | disposition home or self-care (01) | LOC: PT 15:20 | PROVIDERS: PCP Family Medicine; Visit Provider Family Medicine | DX: M25.561 Pain in right knee (principal) | CPT/HCPCS: 97110; 97163 ==

== ENCOUNTER 2024-09-11 18:23 | Observation (INO) | payer MEDICARE, BC, SELFPAY ==
[2024-09-11 18:33] VITALS: BP 134/52; PULSE 69; TEMP 36.8; O2SAT 96; BMI 25.0
--- NOTE | 2024-09-11 19:36 | ED.MEDCLEAR1 ---
HPI - Medical Clearance General Chief complaint: Medical Clearance Stated complaint: weakness Time Seen by Provider: 09/11/24 19:31 Source: patient Mode of arrival: walk-in History of Present Illness HPI Narrative: patient states he was sent here by Adult Protective Services because there are bugs in his home. States they will not let him go back to the home until they are able to get rid of the bugs. States he feels well. His Has a prostate problem and has difficulty urinating. He wears depends because he is often incontinent. He Denies abdominal pain. Does not feel ill. Requires a walker to assist ambulation additional history obtained from Nursing. In the past a daughter took care of the family . She is no longer avaiable. APS came by the home today and declared the home not inhabitable and sent the patient here. He will need social admit Related Information Home Medications ?Medication ?Instructions ?Recorded ?Confirmed atorvastatin 40 mg tablet mg 09/11/24 carvedilol 25 mg tablet mg 09/11/24 clopidogrel 75 mg tablet mg 09/11/24 dutasteride 0.5 mg capsule mg PO 09/11/24 glimepiride 4 mg tablet mg 09/11/24 hydroxyzine HCl 25 mg tablet mg 09/11/24 levothyroxine 75 mcg tablet mcg 09/11/24 lisinopril 10 mg tablet mg 09/11/24 pantoprazole 40 mg tablet,delayed mg PO 09/11/24 release sitagliptin phosphate 100 mg mg 09/11/24 tablet (Januvia) tamsulosin 0.4 mg capsule mg PO 09/11/24 Allergies Allergy/AdvReac Type Severity Reaction Status Date / Time No Known Drug Allergies Allergy Verified 09/11/24 18:31 Review of Systems ROS Status of ROS 10 or more systems reviewed and unremarkable except as noted in history and below PFSH PFSH Social History Little interest or pleasure in doing things: not at all Feeling down, depressed, or hopeless: not at all Exam Constitutional Vital Signs, click to edit/add: Last Vital Signs Temp 98.2 F 09/11/24 18:33 Pulse 69 09/11/24 18:33 Resp 18 09/11/24 18:33 BP 134/52 09/11/24 18:33 Pulse Ox 96 09/11/24 18:33 O2 Del Method Room Air 09/11/24 18:33 Common normals: no apparent distress, average body habitus, oriented x3, no limitations, healthy appearing, alert and well nourished HENCA Common normals: normocephalic and head/scalp atraumatic Eye Common normals: PERRL and EOMs intact bilaterally Respiratory Common normals: normal respiratory effort, no retractions, no use of accessory muscles and clear to auscultation bilaterally Cardio Common normals: regular rate, regular rhythm, S1 normal heart sound and S2 normal heart sound GI Common normals: Normal to inspection, nondistended, normoactive bowel sounds present, soft to palpation and non-tender Extremity Common normals: normal to inspection and full ROM Neuro Common normals: CN's II-XII intact bilaterally, moves all extremities and no focal motor deficits Psych Appearance: grossly normal Course Vital Signs Vital signs: Vital Signs Temperature 98.2 F 09/11/24 18:33 Pulse Rate 69 09/11/24 18:33 Respiratory Rate 18 09/11/24 18:33 Blood Pressure 134/52 09/11/24 18:33 Pulse Oximetry 96 09/11/24 18:33 Oxygen Delivery Method Room Air 09/11/24 18:33 Temperature 98.2 F 09/11/24 18:33 Pulse Rate 69 09/11/24 18:33 Respiratory Rate 18 09/11/24 18:33 Blood Pressure 134/52 09/11/24 18:33 Pulse Oximetry 96 09/11/24 18:33 Oxygen Delivery Method Room Air 09/11/24 18:33 MDM - Medical Clearance MDM Narrative Medical decision making narrative: APS sent patient and his family to the ER as apparently their home has been listed as non inhabitable . They are not allowed to go back home and need placement. 84 year old patient provides care for himself as well as his and son . Patient has no complaint except history of urinary incontinence which he relates to his prostate. He is otherwise clinically stable. Discussed with the hospitalist as patient will need involvement and assistance with social insurance adviser Lab Data Labs: Lab Results 09/11/24 Range/Units 20:10 WBC 10.3 (4.0-11.0) 10^3/uL RBC 3.87 L (4.70-6.10) 10^6/uL Hgb 12.0 L (14.0-18.0) g/dL Hct 35.3 L (42.0-54.0) % MCV 91.2 (80.0-94.0) fL MCH 31.0 (25.9-34.0) pg MCHC 34.0 (29.9-35.2) g/dL RDW 13.0 (11.0-15.0) % Plt Count 374 (150-450) 10^3/uL MPV 9.6 (9.5-13.5) fL Neut % (Auto) 53.2 (43.0-75.0) % Lymph % (Auto) 32.3 (20.5-60.0) % [place] Zandt % (Auto) 10.5 (1.7-12.0) % Eos % (Auto) 2.6 (0.9-7.0) % Baso % (Auto) 0.8 (0.2-2.0) % Neut # (Auto) 5.5 (1.4-6.5) 10^3/uL Lymph # (Auto) 3.3 (1.2-3.8) 10^3/uL [place]t # (Auto) 1.1 H (0.3-0.8) 10^3/uL Eos # (Auto) 0.3 (0.0-0.7) 10^3/uL Baso # (Auto) 0.1 (0.0-0.1) 10^3/uL Abs Immat Gran (auto) 0.06 H (0.00-0.03) 10^3/uL Imm/Tot Granulo (auto) 0.6 H (0.0-0.5) % Sodium 141 (136-145) mmol/L Potassium 4.1 (3.5-5.1) mmol/L Chloride 104 (98-107) mmol/L Carbon Dioxide 28.8 (21.0-32.0) mmol/L Anion Gap 12.3 BUN 20.0 H (7.0-18.0) mg/dL Creatinine 1.29 (0.70-1.30) mg/dL Est GFR ( Amer) >60 (>=60 mL/min/1.73m^2) Est GFR (Non-Af Amer) 53 L (>=60 mL/min/1.73m^2) BUN/Creatinine Ratio 15.5 Glucose 218 H (74-106) mg/dL Calcium 9.3 (8.5-10.1) mg/dL Discharge Plan Discharge Chief Complaint: Medical Clearance Clinical Impression: Hyperglycemia, Hospital admission due to social situation Patient Disposition: Admitted as Observation
[2024-09-11 20:40] LABS: Basophils Absolute Auto 0.1 10^3/uL (0.0-0.1); Basophils Percent Auto 0.8 % (0.2-2.0); Eosinophils Absolute Auto 0.3 10^3/uL (0.0-0.7); Eosinophils Percent Auto 2.6 % (0.9-7.0); Hematocrit 35.3 % (42.0-54.0); Immature Granulocytes Abs Auto 0.06 10^3/uL (0.00-0.03); Immature Granulocytes Pct Auto 0.6 % (0.0-0.5); Lymphocytes Absolute Auto 3.3 10^3/uL (1.2-3.8); Lymphocytes Percent Auto 32.3 % (20.5-60.0); Mean Corpuscular Volume 91.2 fL (80.0-94.0); Mean Platelet Volume 9.6 fL (9.5-13.5); Monocytes Absolute Auto 1.1 10^3/uL (0.3-0.8); Monocytes Percent Auto 10.5 % (1.7-12.0); Neutrophils Absolute Auto 5.5 10^3/uL (1.4-6.5); Neutrophils Percent Auto 53.2 % (43.0-75.0); Platelet Count 374 10^3/uL (150-450); Red Blood Count 3.87 10^6/uL (4.70-6.10); White Blood Count 10.3 10^3/uL (4.0-11.0)
[2024-09-11 20:54] LABS: Anion Gap 12.3; BUN Creatinine Ratio 15.5; Calcium 9.3 mg/dL (8.5-10.1); Carbon Dioxide 28.8 mmol/L (21.0-32.0); Chloride 104 mmol/L (98-107); Estimated GFR (African America >60 (>=60 mL/min/1.73m^2); Estimated GFR (Non-African Ame 53 (>=60 mL/min/1.73m^2); Glucose 218 mg/dL (74-106); Potassium 4.1 mmol/L (3.5-5.1); Sodium 141 mmol/L (136-145)
[2024-09-11 21:59] LABS: Bilirubin Urine NEGATIVE (NEGATIVE); Blood Urine TRACE-I (NEGATIVE); Clarity Urine CLOUDY (CLEAR); Color Urine LT. YELLOW (YELLOW); Glucose Urine UA 500 mg/dL (NEGATIVE); Ketones Urine NEGATIVE (NEGATIVE); Leukocyte Esterase Urine MODERATE (NEGATIVE); Nitrite Urine NEGATIVE (NEGATIVE); Protein Urine TRACE mg/dL (NEG/TRACE); Urobilinogen Urine 0.2 EU/dL (0.2-1.0)
[2024-09-11 22:02] LABS: Urine Microscopic Indicated YES
[2024-09-11 22:17] LABS: Bacteria Urine LARGE #/HPF (NONE SEEN); Mucus Urine NONE SEEN (NONE SEEN); Squamous Epithelial Cell Urine FEW #/LPF (NONE/RARE); WBC Urine 75-100 #/HPF (NONE SEEN)
[2024-09-11 22:18] LABS: Cast Seen? NONE SEEN #/LPF (NONE SEEN); Crystals Seen? None Seen #/HPF (None Seen); Starch Urine FEW
[2024-09-11 22:19] LABS: Urine Culture Indicated YES-FRMC
[2024-09-12 00:23] VITALS: BP 147/71; PULSE 76; O2SAT 98
[2024-09-12 00:29] VITALS: BMI 25.3
[2024-09-12] MEDS: CEFTRIAXONE 1,000 MG in 0.9 % SODIUM CHLORIDE 50 ML 100 MG IV (02:46)
[2024-09-12 03:22] VITALS: BP 120/71; PULSE 69; TEMP 36.5; O2SAT 96
[2024-09-12 05:24] LABS: Hematocrit 32.9 % (42.0-54.0); Hemoglobin 11.2 g/dL (14.0-18.0); Mean Corpuscular Hemoglobin 30.9 pg (25.9-34.0); Mean Corpuscular Volume 90.6 fL (80.0-94.0); Mean Platelet Volume 9.5 fL (9.5-13.5); Platelet Count 343 10^3/uL (150-450); Red Blood Count 3.63 10^6/uL (4.70-6.10); Red Cell Distribution Width 12.8 % (11.0-15.0); White Blood Count 10.5 10^3/uL (4.0-11.0)
[2024-09-12] MEDS: LEVOTHYROXINE SODIUM 75 MCG TABLET PO (05:38)
[2024-09-12] MEDS: PANTOPRAZOLE SODIUM 40 MG TABLET.DR PO ×2 (05:38→10:09)
[2024-09-12 05:42] LABS: Estimated Average Glucose 189 mg/dL; Glycohemoglobin A1C 8.2 % (4.5-6.2)
[2024-09-12 05:55] LABS: Anion Gap 13.7; Chloride 106 mmol/L (98-107); Estimated GFR (African America >60 (>=60 mL/min/1.73m^2); Estimated GFR (Non-African Ame >60 (>=60 mL/min/1.73m^2); Glucose 162 mg/dL (74-106); Potassium 3.7 mmol/L (3.5-5.1); Sodium 141 mmol/L (136-145)
[2024-09-12 05:58] LABS: Thyroid Stimulating Hormone 3.228 uIU/mL (0.358-3.740)
[2024-09-12 07:49] LABS: Alanine Aminotransferase 17 U/L (16-63); Albumin Globulin Ratio 1.2; Albumin Level 3.2 g/dL (3.4-5.0); Alkaline Phosphatase 53 U/L (46-116); Aspartate Amino Transferase 27 U/L (15-37); Bilirubin Direct 0.1 mg/dL (0.0-0.2); Bilirubin Total 0.3 mg/dL (0.2-1.0); Globulin 2.6 g/dL; Total Protein 5.8 g/dL (6.4-8.2)
--- NOTE | 2024-09-12 08:14 | P.HP_ITS ---
HPI H&P: HPI History of Present Illness Chief complaint: weakness, HYPERGLYCEMIA Narrative: Patient was seen in the office last week for routine follow-up on his care, difficulty ambulating in the office secondary to weakness, does use a walker and is fairly stable as long as he has that, discussed his ability to care for his at that time he felt he was able to, both him requiring a walker for assistance and she requiring physical assistance with ambulation care would not seem to be able to be completed When I saw patient up in the medical surgical floor, other than not being able to sleep last night, no complaints, denies chest pain shortness of breath or generalized weakness, denies dysuria but does have acute UTI noted on labs Opioid HPI Opioid Management Most Recent Pain and Opioid Data: Last Pain Assessment Today, : Last ORT Total Score 0 Today, Last ORT Risk Category Low Risk Today, Review of Systems ROS Status of ROS 10 or more systems reviewed and unremark able except as noted in history and below PFSH PFSH Family History (Updated 09/12/24 @ 00:52 by Veronica Luna) Father Family history of CHF (congestive heart failure) Family history of hypertension Family history of myocardial infarction Daughter Family history of cancer Aunt Family history of cancer Social History (Updated 09/12/24 @ 00:52 by Veronica Luna) Within the past year, how often did you have a drink containing alcohol: never Score interpretation: A score less than 4 is consistent with normal alcohol consumption. Smoking status: Former smoker Non-prescribed substance use: denies use Previous occupational history: retired Highest level of school completed/degree received: some college, no degree Are you now , , , , never or living with a partner: In a typical week, how many times do you talk on the telephone with family, friends, or neighbors: 3 or more times per week How often do you attend quaker or faith services: 4 or more times per year Little interest or pleasure in doing things: not at all Feeling down, depressed, or hopeless: not at all Feel stressed/tense/nervous/anxious/difficulty sleeping: not at all Do you think of yourself as: straight/heterosexual Gender Identity: male Meds Home Medications and Allergies Home Medications ?Medication ?Instructions ?Recorded ?Confirmed ?Type atorvastatin 40 mg tablet 40 mg PO DAILY 09/11/2408/15 History carvedilol 25 mg tablet 25 mg PO BID 09/11/24 History clopidogrel 75 mg tablet 75 mg PO DAILY 09/11/2408/15 History dutasteride 0.5 mg capsule 0.5 mg PO DAILY 09/11/24 History glimepiride 4 mg tablet 8 mg PO DAILY 09/11/2409/12 History hydroxyzine HCl 25 mg tablet 25 mg PO DAILY PRN anxiet y 09/11/24 09/11/24 History lactulose 10 gram/15 mL oral 30 ml PO BID 09/11/24 History solution (Constulose) levothyroxine 75 mcg tablet 75 mcg PO DAILY 09/11/24 0 09/11/24 History pantoprazole 40 mg tablet,delayed 40 mg PO DAILY 09/1109/11/24 History release sitagliptin phosphate 100 mg 100 mg PO DAILY 09/11/24 09/11/24 History tablet (Januvia) tamsulosin 0.4 mg capsule 0.8 mg PO DAILY 09/11/24 History Allergies Allergy/AdvReac Type Severity Reaction Status Date / Time No Known Drug Allergies Allergy Verified 09/11/24 18:31 Exam Constitutional Vital Signs, click to edit/add: Last Vital Signs Temp 97.7 F 09/12/24 03:22 Pulse 69 09/12/24 03:22 Resp 20 09/12/24 03:22 BP 120/71 09/12/24 03:22 Pulse Ox 96 09/12/24 03:22 O2 Del Method Room Air 09/12/24 03:22 Documenting provider has reviewed patient's vital signs: yes Common normals: no apparent distress Respiratory Common normals: normal respiratory effort and no retractions Cardio Common normals: regular rate and regular rhythm GI Common normals: Normal to inspection, nondistended, normoactive bowel sounds present and soft to palpation Extremity Common normals: full ROM, normal capillary refill and no clubbing, cyanosis or edema Results Labs Labs: Short CBC 09/11/24 09/12/24 Range/Units 20:10 05:18 WBC 10.3 10.5 (4.0-11.0) 10^3/uL Hgb 12.0 L 11.2 L (14.0-18.0) g/dL Hct 35.3 L 32.9 L (42.0-54.0) % Plt Count 374 343 (150-450) 10^3/uL BMP 09/11/24 09/12/24 20:10 05:18 Sodium 141 141 Potassium 4.1 3.7 Chloride 104 106 Carbon Dioxide 28.8 25.0 BUN 20.0 H 19.0 H Creatinine 1.29 1.12 Glucose 218 H 162 H Calcium 9.3 9.0 Liver Function 09/12/24 Range/Units 05:18 Total Bilirubin 0.3 (0.2-1.0) mg/dL Direct Bilirubin 0.1 (0.0-0.2) mg/dL AST 27 (15-37) U/L ALT 17 (16-63) U/L Alkaline Phosphatase 53 (46-116) U/L Albumin 3.2 L (3.4-5.0) g/dL Urine 09/11/24 Range/Units 21:35 Urine Color Lt. yellow (YELLOW) Urine Clarity Cloudy A (CLEAR) Urine pH 6.0 (5.0-9.0) Ur Specific [place] 1.020 (1.005-1.025) Urine Protein Trace (NEG/TRACE) mg/dL Urine Glucose (UA) 500 A (NEGATIVE) mg/dL Assessment and Plan Assessment and Plan (1) Hyperglycemia: (2) Acute UTI: (3) Hypertension: (4) Diabetes mellitus: Plan Admission status: Patient with generalized weakness secondary to acute UTI- Generalized weakness secondary to acute UTI-so far is stable we will change him to oral agents, culture pending, physical therapy to work with patient Diabetes mellitus-insulin sliding scale Hypertension-as needed hydralazine BPH-continue with current medications Coronary artery disease continue current medications Hypothyroidism-continue with current medications GERD continue current medications Admission status: Patient placed in observation secondary to weakness secondary to acute UTI, if medically necessary treatment will span 2 midnights patient will be changed to inpatient status Urinary Catheter Management Urinary Catheter Management Pure Wick: Cath placed during this visit: yes Urethral indwelling: Yes Reason for continuing: measure accurate output Insertion date: 09/12/24 Insertion time: 01:11
[2024-09-12 08:56] VITALS: BP 134/73; PULSE 74; TEMP 36.4; O2SAT 96
[2024-09-12 09:01] LABS: Glucometer 163 mg/dL (74-106)
[2024-09-12 09:20] VITALS: O2SAT 96
--- NOTE | 2024-09-12 09:30 | SWNOTE1 ---
YEMI spoke to Yamel from [facility]. She is aware of the home situation. It was recommended by [facility] that pt possibly go to [facility], but unsure if he is agreeable. Yamel is unsure if they can accept him as they are concerned if he arrived there with , he may try to take his out of [facility]. He has been deemed incompetent to care for pt and there son. Yamel is willing to look over referral.
[2024-09-12] MEDS: GLIMEPIRIDE 2 MG TABLET 8 MG PO (10:08)
[2024-09-12] MEDS: ENOXAPARIN SODIUM 40 MG/0.4 ML SYRINGE SUBQ (10:08)
[2024-09-12] MEDS: TAMSULOSIN HCL 0.4 MG CAPSULE 0.8 MG PO (10:09)
[2024-09-12] MEDS: SITAGLIPTIN PHOSPHATE 50 MG TABLET 100 MG PO (10:09)
[2024-09-12] MEDS: LISINOPRIL 10 MG TABLET PO (10:09)
[2024-09-12] MEDS: DUTASTERIDE 0.5 MG CAPSULE PO (10:09)
[2024-09-12] MEDS: CLOPIDOGREL BISULFATE 75 MG TABLET PO (10:09)
[2024-09-12] MEDS: CARVEDILOL 25 MG TABLET PO (10:09)
[2024-09-12] MEDS: LACTULOSE 10 GM/15 ML UD CUP 20 GM PO (10:24)
--- NOTE | 2024-09-12 10:24 | SWNOTE1 ---
Referral sent to [facility]. Referral included face sheet, ED note, H&P, provider notes, case management report,nursing notes, diagnostic imaging, med list, and PT/OT notes. SW received message from Yamel at [facility] and per [facility], pt has agreed to a respite stay. SW to speak with pt.
--- NOTE | 2024-09-12 11:44 | SWNOTE1 ---
SW stopped in and spoke to pt. Pt voiced frustration with [facility] and the whole situation. He voiced that they do not even help and that he was told by Rosa from [facility] to come here. SW asked pt if he knew what the plan was. He stated he knows they are going to put us in a nursing facility, [facility]. Pt is alert and oriented and knows where he is, month, president, and year. Pt did ask if he was able to have them go somewhere else, asked about the [facility]. SW expressed that [facility] has been working with [facility]. SW also let him know that [place] does not take Medicaid and many facilities do not take bed bugs. Pt did raise his voiced and voiced he was upset and did not want to go to facility. SW expressed to him that his and son have to go as [facility] has deemed him as incompetent to care for them. SW advised him that SW has to speak with Rosa to see if pt has to go to facility as well. He stated that Rosa has already told him that he has to. SW asked if he wants to go to same facility as his family? He stated yes of course. SW advised pt that SW is working on this and will be calling [facility] and waiting for Rosa to call back. SW did express to pt that he had done a good job of caring for his and son, it just gets to a point where we get older and it is harder to care for our loved ones. Pt did ask about his home. SW expressed that once Medicaid comes in, there is a chance they will take the home and pt will have to spend down. SW advised that [facility] will assist with this and [facility] will as well. SW did get a call from MAME Conklin, at [facility]. She expressed that she is able to accept all of the [place] family. She did ask if they were coming today or if they were satying 3 nights. YEMI expressed that SW has to reach out to doctor's to confirm they are stable for discharge, but SW is pretty certain they have no medical diagnosis to be here. She stated that pt and will go to same room and son in different room. SW did advise that pt still drives and pays bills, so he will not meet for level of care. Katerin voiced they will figure it out and possibly do respite stay. SW asked if he would have to pay, Katerin stated no they will figure it out with [facility]. YEMI messaged the doctor.
[2024-09-12 12:09] LABS: Glucometer 226 mg/dL (74-106)
--- NOTE | 2024-09-12 14:38 | SWNOTE1 ---
[facility] is able to accept and pt is medically stable for discharge. YEMI did speak with Rosa from [facility], Lissy from [facility], and nurses from hospice. They all voiced pt has declined and not able to care for himself or his family. SW spoke to pt again and updated him with going to [facility] with his family. Pt again voiced he is worried about his house and car and paying bills. Pt did raise voice, but calmed down after talking more. YEMI explained that pt is just going there fore respite stay to start and they will assist with helping him manage those things. Pt voiced he is not ok, but knows he does have to go for now. YEMI set up trips transport for 3:30. YEMI notified Yamel at [facility] of time and nurse and patient. YEMI faxed dc orders over and completed PAS[facility].
--- NOTE | 2024-09-12 15:08 | SWNOTE1 ---
Medicare Outpatient Observation Notice reviewed and discussed with patient. Pt. verbalized understanding and signed the form. Original given to patient and copy placed in patient?s chart.
== END 2024-09-12 15:45 ==
LOC: ER 21:31 → MS 09-12 00:28
PROVIDERS: Registered Nurse; Admitting Provider Family Medicine; Emergency Provider Internal Medicine; PCP Family Medicine; Visit Provider Family Medicine
DX: N39.0 Urinary tract infection, site not specified (principal); R53.1 Weakness; E11.65 Type 2 diabetes mellitus with hyperglycemia; Z87.891 Personal history of nicotine dependence; I10 Essential (primary) hypertension; I25.10 Atherosclerotic heart disease of native coronary artery without angina pectoris; E03.9 Hypothyroidism, unspecified; K21.9 Gastro-esophageal reflux disease without esophagitis; Z79.84 Long term (current) use of oral hypoglycemic drugs; N40.1 Benign prostatic hyperplasia with lower urinary tract symptoms; N39.498 Other specified urinary incontinence; Z58.89 Other problems related to physical environment
CPT/HCPCS: 36415; 80048; 80076; 81001; 82948; 83036; 83880; 84443; 85025; 85027; 87040; 87086; 94761; 96365; 96372; 97161; 97165; 99285; G0378; J0696; J1650

== ENCOUNTER 2025-01-10 01:22 | Emergency (ER) | payer BC, MEDICAID, SELFPAY ==
--- OUTSIDE RECORDS SUMMARY | 2023-05-03 20:00 | XMS_ITS | CCD ---
Author Name Ian NIELSEN Judi e Address [address] [facility] [address] [place] [address] Phone Organization [facility] Phone Care Team Providers Care Chemical Technician Name Role Phone Office, [place] Primary Care Provider Unavailabl e Unavailable Chronic Care Management Unavaila ble Summary Purpose DataExchange Insurance Providers Payer name Policy type / Coverage type Covered democrat ID Effective Begin Date Effective End Date [place] MEDIC[place] CGS [id number] 2023 Unknown BCBS [place] [id number] 2023 Unknown Family history Father Diagnosis Age At Onset Heart attack Unknown Mother Diagnosis Age At Onset No Family Disease Entered N/A Social History Social History Element Codes Description Effec tive Dates Marital status Unknown 05/03/2023 Number of adults in household Unknown 3 05/03/2023 Tobacco history Unknown Former User 05/03/[address]: 770530644 Never drinks alco hol 05/03/2023 Illegal/Recreational drug history Unknown *Has never used illegal/recreational drugs 05/03/2023 DNR Order/ Advanced Directive Unknown Full Code 05/03/2023 Problems Condition Codes Effective Dates Condition St atus ASCVD (arteriosclerotic cardiovascular disease) ICD-10: I25.10 ICD-9: 429.2 05/03/2023 Active History of aortic valve replacement ICD- 10: Z95.2 ICD-9: V43.3 05/03/2023 Active Hypertension ICD-10: I10 ICD-9: 401.9 05/03/2023 Active Type 2 diabetes mellitus ICD-10: E11.9 ICD-9: 250.00 05/03/2023 Active Abnormal EKG ICD-10: R94.31 ICD-9: 794.31 05/03/2023 Active Adhesive capsulitis of both shoulders ICD-10: M75.01 ICD-9: 726.0 05/03/2023 Active Age-related cognitive decline ICD-10: R4 1.81 ICD-9: 294.9 05/03/2023 Active Anxiety ICD-10: F41.9 ICD-9: 300.00 05/03/2023 Active BPH (benign prostatic hyperplasia) ICD-1 0: N40.0 ICD-9: 600.00 05/03/2023 Active Encounter to establish care with new doctor ICD-10: Z76.89 ICD-9: V65.8 05/03/2023 Active History of quadruple bypass ICD-10: Z95. 1 ICD-9: V15.1 05/03/2023 Active Hypothyroidism ICD-10: E03.9 ICD-9: 244.9 05/03/2023 Active Lower extremity weakness ICD-10: R29.898 ICD-9: 729.89 05/03/2023 Active Unsteadiness on feet ICD-10: R26.81 ICD-9: 781.2 05/03/2023 Active Medications Medication Codes Instructions Start Date Stop Date Status Fill Instructions lisinopril 5 mg tablet RxNorm: 440134 Take 1 Tablet(s) Oral every day 3 08/07/19 24 Active pantoprazole 40 mg tablet,delayed release RxNorm: 459074 Take 1 Tablet(s) Oral every day 30 minutes before meal 3 08/07/19 24 Active tamsulosin 0.4 mg capsule RxNorm: 156353 Take 1 Capsule(s) Oral every day 3 04/27/20 24 Active glimepiride 4 mg tablet RxNorm: 731997 Take 1 Tablet(s) Oral every day with first main meal 3 04/26/20 24 Active levothyroxine 75 mcg tablet RxNorm: 667510 Take 1 Tablet(s) Oral every day on an empty stomach 30 minutes before breakfast 3 04/26/20 24 Active clopidogrel 75 mg tablet RxNorm: 084396 Take 1 Tablet(s) Oral once daily 3 04/26/20 24 Active Januvia 100 mg tablet RxNorm: 345934 Take 1 Tablet(s) Oral every day 3 04/26/20 24 Active atorvastatin 40 mg tablet RxNorm: 110825 Take 1 Tablet(s) Oral every night at bedtime 3 04/26/20 24 Active hydroxyzine HCl 25 mg tablet RxNorm: 078705 Take 1 Tablet(s) Oral every day 3 04/26/20 24 Active Medication Administered No Medication Administered data Procedures Procedure Codes Date Electrocardiogram CPT-4: 81498 05/03/2023 Urinalysis, dip stick CPT-4: 63001 05/03/2023 F8U-Mwwsymowoezsxgc CPT-4: 79243 Unknown Reason For Visit No Reason For Visit data Plan of Care Planned Activity Notes Codes Status Date Patient Education: Patient Medication Summary Completed 05/04/2023 Care Plan: External Echocardiography Ordered 05/04/2023 Appointment: Erma Sosa WPtel: [address] [place], [place] [id number] 05/03/2023 Medical Equipment No Medical Equipment data Advance Directives No Advance Directive data
--- OUTSIDE RECORDS SUMMARY | 2023-05-09 20:00 | XMS_ITS | CCD ---
Author Name Ian NIELSEN Judi e Address [address] [address] [place] [address] Phone Organization [facility] Phone Care Team Providers Care Golf Ball Trimmer Name Role Phone Office, Ashley Primary Care Provider Unavailabl e Unavailable Chronic Care Management Unavaila ble Summary Purpose DataExchange Insurance Providers Payer name Policy type / Coverage type Covered alliance party ID Effective Begin Date Effective End Date CT MEDICARE CGS [id number] 2023 Unknown BCBS [place] [id number] 2023 Unknown Family history Father Diagnosis Age At Onset Heart attack Unknown Mother Diagnosis Age At Onset No Family Disease Entered N/A Social History Social History Element Codes Description Effec tive Dates Marital status Unknown 05/03/2023 Number of adults in household Unknown 3 05/03/2023 Tobacco history Unknown Former User 05/03/[address]: 180981322 Never drinks alco hol 05/03/2023 Illegal/Recreational drug history Unknown *Has never used illegal/recreational drugs 05/03/2023 DNR Order/ Advanced Directive Unknown Full Code 05/03/2023 Problems Condition Codes Effective Dates Condition St atus Abnormal EKG ICD-10: R94.31 ICD-9: 794.31 05/03/2023 Active Adhesive capsulitis of both shoulders ICD-10: M75.01 ICD-9: 726.0 05/03/2023 Active Age-related cognitive decline ICD-10: R4 1.81 ICD-9: 294.9 05/03/2023 Active Anxiety ICD-10: F41.9 ICD-9: 300.00 05/03/2023 Active ASCVD (arteriosclerotic cardiovascular disease) ICD-10: I25.10 ICD-9: 429.2 05/03/2023 Active BPH (benign prostatic hyperplasia) ICD-1 0: N40.0 ICD-9: 600.00 05/03/2023 Active Encounter to establish care with new doctor ICD-10: Z76.89 ICD-9: V65.8 05/03/2023 Active History of aortic valve replacement ICD- 10: Z95.2 ICD-9: V43.3 05/03/2023 Active History of quadruple bypass ICD-10: Z95. 1 ICD-9: V15.1 05/03/2023 Active Hypertension ICD-10: I10 ICD-9: 401.9 05/03/2023 Active Hypothyroidism ICD-10: E03.9 ICD-9: 244.9 05/03/2023 Active Lower extremity weakness ICD-10: R29.898 ICD-9: 729.89 05/03/2023 Active Type 2 diabetes mellitus ICD-10: E11.9 ICD-9: 250.00 05/03/2023 Active Unsteadiness on feet ICD-10: R26.81 ICD-9: 781.2 05/03/2023 Active Medications Medication Codes Instructions Start Date Stop Date Status Fill Instructions lisinopril 5 mg tablet RxNorm: 656162 Take 1 Tablet(s) Oral every day 3 08/07/19 24 Active pantoprazole 40 mg tablet,delayed release RxNorm: 035868 Take 1 Tablet(s) Oral every day 30 minutes before meal 3 08/07/19 24 Active tamsulosin 0.4 mg capsule RxNorm: 649148 Take 1 Capsule(s) Oral every day 3 04/27/20 24 Active glimepiride 4 mg tablet RxNorm: 233222 Take 1 Tablet(s) Oral every day with first main meal 3 04/26/20 24 Active levothyroxine 75 mcg tablet RxNorm: 481302 Take 1 Tablet(s) Oral every day on an empty stomach 30 minutes before breakfast 3 04/26/20 24 Active clopidogrel 75 mg tablet RxNorm: 989209 Take 1 Tablet(s) Oral once daily 3 04/26/20 24 Active Januvia 100 mg tablet RxNorm: 761799 Take 1 Tablet(s) Oral every day 3 04/26/20 24 Active atorvastatin 40 mg tablet RxNorm: 457609 Take 1 Tablet(s) Oral every night at bedtime 3 04/26/20 24 Active hydroxyzine HCl 25 mg tablet RxNorm: 085170 Take 1 Tablet(s) Oral every day 3 04/26/20 24 Active Medication Administered No Medication Administered data Results Observation Observation Code Item Item Code Result Date Service Location MICROALBUMIN (URINE) 57416 Microalbumin 85770-7 2.4 mg/dL 023 [facility] [address] [place] [address] MICROALBUMIN (URINE) 15259 Microalbumin/Crea tinine Ratio 27020-7 40 MCG/MGCRE AT 023 [facility] [address] [place] [address] MICROALBUMIN (URINE) 19802 Urine Creatinine 2161-8 59.60 mg/dL 023 [facility] [address] [place] [address] COMPLETE CBC W/ DIFF WBC 77401 WBC 6690-2 9.8 K/ul 023 [facility] [address] [place] [address] 40901 COMPLETE CBC W/ DIFF WBC 86350 RBC 789-8 3.91 M/uL 023 [facility] [address] [place] [address] COMPLETE CBC W/ DIFF WBC 79483 Hemoglobin 718-7 11.6 g/dL 023 [facility] [address] [place] [address] 43746 COMPLETE CBC W/ DIFF WBC 29805 Hematocrit 4544-3 35.0 % 023 [facility] [address] [place] [address] 81854 COMPLETE CBC W/ DIFF WBC 85715 MCV 787-2 89.7 fL 023 [facility] [address] [place] [address] COMPLETE CBC W/ DIFF WBC 98155 MCH 785-6 29.7 pg 023 [facility] [address] [place] [address]1506 COMPLETE CBC W/ DIFF WBC 89367 MCHC 786-4 33.2 g/dL 023 [facility] [address] [place] [address] COMPLETE CBC W/ DIFF WBC 39002 RDW 788-0 14.8 % 023 [facility] [address] [place] [address] 49107 COMPLETE CBC W/ DIFF WBC 77945 Platelet Count 777-3 356 K/uL 023 [facility] [address] [place] [address] 33890 COMPLETE CBC W/ DIFF WBC 59279 MPV 31211-9 7.8 fL 023 [facility] [address] [place] [address] 58883 COMPLETE CBC W/ DIFF WBC 09222 Neutrophils % 770-8 62.4 % 023 [facility] [address] [place] [address] 32221 COMPLETE CBC W/ DIFF WBC 70521 Lymphocytes % 736-9 26.6 % 023 [facility] [address] [place] [address] 06294 COMPLETE CBC W/ DIFF WBC 27525 Monocytes % 5905-5 8.5 % 023 [facility] [address] [place] [address] 57570 COMPLETE CBC W/ DIFF WBC 03055 Eosinophils % 713-8 1.8 % 023 [facility] [address] [place] [address] 64707 COMPLETE CBC W/ DIFF WBC 13684 Basophils% 706-2 0.7 % 023 [facility] [address] [place] [address] 76753 COMPLETE CBC W/ DIFF WBC 16018 Absolute Neutrophil 751-8 6115 /ul 023 [facility] [address] [place] [address] 07768 COMPLETE CBC W/ DIFF WBC 68086 Absolute Lymphocyte 01411-2 2607 /ul 023 [facility] [address] [place] [address] 30249 COMPLETE CBC W/ DIFF WBC 92517 Absolute Monocyte 742-7 833 /ul 023 [facility] [address] [place] [address] 91753 COMPLETE CBC W/ DIFF WBC 06197 Absolute Eosinophil 711-2 176 /ul 023 [facility] [address] [place] [address] 80967 COMPLETE CBC W/ DIFF WBC 08112 Absolute Basophil 704-7 69 /ul 023 [facility] [address] [place] [address] 94786 No Orders No Orders No Orders 0 023 [facility] [address] [place] [address] 32494 CHOLESTEROL 51258 Cholesterol 2093-3 171 mg/dL 023 [facility] [address] [place] [address] 74422 FREE T-4 28805 FT4 3024-7 1.04 ng/dL 023 [facility] [address] [place] [address] TRIGLYCERIDES 38285 Triglycerides 2571-8 241 mg/dL 023 [facility] [address] [place] [address] TRIGLYCERIDES 46555 VLDL 78377-1 48 mg/dL 023 [facility] [address] [place] [address] VITAMIN B-12 80512 Vitamin B12 2132-9 1001 pg/mL 023 [facility] [address] [place] [address] PTH 44293 PTH 2731-8 99.4 pg/mL 023 [facility] [address] [place] [address] MAGNESIUM 66729 Magnesium 10553-5 2.1 mg/dL 023 [facility] [address] [place] [address] FOLATE 92401 Folate 2284-8 >20 ng/mL 023 [facility] [address] [place] [address] HDL - CHOL 35648 HDL 2085-9 51 mg/dL 023 [facility] [address] [place] [address] HDL - CHOL 02679 CHD 12832-0 30 % 023 [facility] [address] [place] [address] 51856 VITAMIN D 85509 Vitamin D 79089-9 28.8 ng/mL 0[address] [facility] [address] [place] [address] 18590 [id number] IN [facility] Glyco HGB A1C 23828-4 9.1 % 023 [facility] [address] [place] [address] 53161 [id number] IN [facility]4 eAG 71544-2 214 mg/dL 023 [facility] [address] [place] [address] PREALBUMIN 49784 Prealbumin 09949-2 33 mg/dL 023 [facility] [address] [place] [address] TSH 24514 TSH 35090-5 1.430 uIU/mL 023 [facility] [address] [place] [address] CHEM 14 (METABOLIC PANEL) 64576 Glucose 2345-7 157 mg/dL 023 [facility] [address] [place] [address] CHEM 14 (METABOLIC PANEL) 00602 BUN 3094-0 19 mg/dL 023 [facility] [address] [place] [address] CHEM 14 (METABOLIC PANEL) 85797 Creatinine 2160-0 1.3 mg/dL 023 [facility] [address] [place] [address] CHEM 14 (METABOLIC PANEL) 06681 BUN/Creat Ratio 3097-3 14.6 023 [facility] [address] [place] [address] CHEM 14 (METABOLIC PANEL) 26430 GFR Estimated 49835-2 54 mL/min/1. 73m2 023 [facility] [address] [place] [address] CHEM 14 (METABOLIC PANEL) 54240 Sodium 2951-2 141 mmol/L 023 [facility] [address] [place] [address] 22734 CHEM 14 (METABOLIC PANEL) 66619 Potassium 2823-3 4.6 mmol/L 023 [facility] [address] [place] [address] CHEM 14 (METABOLIC PANEL) 21834 Chloride 2075-0 109 mmol/L 023 [facility] [address] [place] [address] 68889 CHEM 14 (METABOLIC PANEL) 15584 Total CO2 2028-9 24 mmol/L 023 [facility] [address] [place] [address] 21327 CHEM 14 (METABOLIC PANEL) 12705 Anion Gap 1863-0 12.6 mEq/L 023 [facility] [address] [place] [address] CHEM 14 (METABOLIC PANEL) 76963 Calculated Serum Osmolality 27678-7 298 mOsm/kg 023 [facility] [address] [place] [address] CHEM 14 (METABOLIC PANEL) 68727 Albumin 99875-7 3.8 g/dL 023 [facility] [address] [place] [address] CHEM 14 (METABOLIC PANEL) 03608 Total Protein 2885-2 7.4 g/dL 023 [facility] [address] [place] [address] CHEM 14 (METABOLIC PANEL) 99687 Globulin 2336-6 3.6 g/dL 023 [facility] [address] [place] [address] CHEM 14 (METABOLIC PANEL) 03779 Albumin/Globulin Ratio 1759-0 1.1 023 [facility] [address] [place] [address] CHEM 14 (METABOLIC PANEL) 99816 ALK PHOS 6768-6 69.00 U/L 023 [facility] [address] [place] [address] CHEM 14 (METABOLIC PANEL) 85891 SGOT/AST 1920-8 16 U/L 023 [facility] [address] [place] [address] CHEM 14 (METABOLIC PANEL) 41887 SGPT/ALT 1743-4 23 U/L 023 [facility] [address] [place] [address] CHEM 14 (METABOLIC PANEL) 18577 Total Bilirubin 1975-2 0.6 mg/dL 023 [facility] [address] [place] [address] 52830 CHEM 14 (METABOLIC PANEL) 04481 Calcium 79822-7 9.0 mg/dL 023 [facility] [address] [place] [address] 54472 CHEM 14 (METABOLIC PANEL) 66248 Corrected Calcium 58282-1 9.3 mg/dL 05/04 023 [facility] [address] [place] [address] 65856 Direct LDL 13302 LDL-Direct 99049-2 96 mg/dL 023 [facility] [address] [place] [address] Procedures Procedure Codes Date Electrocardiogram CPT-4: 71538 05/03/2023 Urinalysis, dip stick CPT-4: 02759 05/03/2023 Electrocardiogram Finding/Abnormal: _Sinus Rhythm - frequent ectopic ventricular beat s # VECs = 2-Left bundle branch block. Poor SNR (< 1) in leads II CPT-4: 33159Fokzrnm 05/03/2023 Glucose Blood Test CPT-4: 40227 05/03/2023 Urinalysis, dip stick Leukocytes:/Small, Nitrite:/Negative, Urobilinogen:/0.2, Protein:/Negative, Ph:/5.0, Blood:/Negative, Specific [place]:/1.010, Ketone:/Negative, Bilirubin:/Small, Glucose:/100 CPT-4: 33558Sdiapfi 05/03 [id number]-Tvvmiopzbznldzb CPT-4: 06438 Unknown Vital Signs Date Vital 05/03/2023 Blood Pressure 1: 122/72 Code: 8480-6 BMI: 26.2 Code: 75019-4 Heart Rate 1: 67 bpm Height: 5'6 Code: 8302-2 Respiratory Rate: 16 bpm SpO2: 98% Temperature: 36.6 (C) / 97.9 (F) Weight: 162 lbs Code: 13553-9 Reason For Visit Reason For Visit Effective Dates Notes new patient visit 05/03/2023 Interim health update 05/03/2023 Encounters Encounter Performer Location Location Address Codes Hari e ([id number]) Home or Residence 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 Level, 60 mins Diagnosis: ASCVD (arteriosclerotic cardiovascular disease)[ICD10: I25.10] Diagnosis: History of quadruple bypass[ICD10: Z95.1] Diagnosis: History of aortic valve replacement[ICD10: Z95.2] Diagnosis: Hypertension[ICD10: I10] Diagnosis: Type 2 diabetes mellitus[ICD10: E11.9] Diagnosis: Hypothyroidism[ICD10 : E03.9] Diagnosis: Adhesive capsulitis of both shoulders[ICD10: M75.01] Diagnosis: BPH (benign prostatic hyperplasia)[ICD10: N40.0] Diagnosis: Anxiety[ICD10: F41.9] Diagnosis: Unsteadiness on feet[ICD10: R26.81] Diagnosis: Lower extremity weakness[ICD10: R29.898] Diagnosis: Age-related cognitive decline[ICD10: R41.81] Diagnosis: Abnormal EKG[ICD10: R94.31] Diagnosis: Encounter to establish care with new doctor[ICD10: Z76.89] Jacinta Sosa [place] Office [id number] [place] [address] [place] [address] CPT-4: 27346 3 Plan of Care Planned Activity Notes Codes Status Date Visit Plan: I25.10-429.2 ASCVD (arteriosclerotic cardiovascular disease) Z95.1-V15.1 History of quadruple bypass Z95.2-V43.3 History of aortic valve replacement R94.31-794.31 Abnormal EKG-echocardiogram ordered asymptomatic, labs ordered I10-401.9 Hypertension stable labs ordered E11.9-250.00 Type 2 diabetes mellitus BS 100-119, random elevated hasn't eaten yet today, continue glimepiride hgb a1c ordered E03.9-244.9 Hypothyroidism chronic, continue levothyroxine will check TSH and Ft4 N40.0-600.00 BPH (benign prostatic hyperplasia) Flomax helpful for symptom management routine follow up with Isamar Bond, urology-records requested F41.9-300.00 Anxiety stable with hydrazaline M75.01-726.0 Adhesive capsulitis of both shoulders R26.81-781.2 Unsteadiness on feet R29.898-729.89 Lower extremity weakness frail patient ambulates with straight cane, declines home therapy, plans to talk to community PCP regarding outpatient PT R41.81-294.9 Age-related cognitive decline lives with , who has own health concerns, has family that checks in on him on routine basis Z76.89-V65.8 Encounter to establish care with new doctor new patient paperwork signed by patient, Dr. Shreyas Espino, PCP last seen approximately a month ago-will request records Isamar Bond, urology 05/03/2023 Patient Education: Patient Medication Summary Completed 05/03/2023 Care Plan: Echocardiogram LOINC : 18999-2 EXT RAD Ordered 05/03/2023 Instructions Comment Date . I25.10-429.2 ASCVD (arteri osclerotic cardiovascular disease) Z95.1-V15.1 History of quadruple bypass Z95.2-V43.3 History of aortic valve replacement R94.31-794.31 Abnormal EKG-echocardiogram ordered asymptomatic, labs ordered I10-401.9 Hypertension stable labs ordered E11.9-250.00 Type 2 diabetes mellitus BS 100-119, random elevated hasn't eaten yet today, continue glimepiride hgb a1c ordered E03.9-244.9 Hypothyroidism chronic, continue levothyroxine will check TSH and Ft4 N40.0-600.00 BPH (benign prostatic hyperplasia) Flomax helpful for symptom management routine follow up with Isamar Bond, urology-records requested F41.9-300.00 Anxiety stable with hydrazaline M75.01-726.0 Adhesive capsulitis of both shoulders R26.81-781.2 Unsteadiness on feet R29.898-729.89 Lower extremity weakness frail patient ambulates with straight cane, declines home therapy, plans to talk to community PCP regarding outpatient PT R41.81-294.9 Age-related cognitive decline lives with , who has own health concerns, has family that checks in on him on routine basis Z76.89-V65.8 Encounter to establish care with new doctor new patient paperwork signed by patient, Dr. Shreyas Espino, PCP last seen approximately a month ago-will request records Isamar Bond, urology 05/03/2023 Medical Equipment No Medical Equipment data Advance Directives No Advance Directive data
--- OUTSIDE RECORDS SUMMARY | 2023-06-26 20:00 | XMS_ITS | CCD ---
Author Name Katie LUU, Dr Manan brooke Address [address] [place] [address] [address] [place] [address] Phone Organization [facility] Phone Care Team Providers Care Glass Ribbon Machine Operator Assistant Name Role Phone Jacinta Sosa NP Primary Care Provider Unav ailable Unavailable Chronic Care Management Unavaila ble Summary Purpose DataExchange Insurance Providers Payer name Policy type / Coverage type Covered democrat ID Effective Begin Date Effective End Date [place] [id number] 2023 Unknown [place]BS [place] [id number] 2023 Unknown Family history Father Diagnosis Age At Onset Heart attack Unknown Mother Diagnosis Age At Onset No Family Disease Entered N/A Social History Social History Element Codes Description Effec tive Dates Marital status Unknown 05/03/2023 Number of adults in household Unknown 3 05/03/2023 Tobacco history Unknown Former User 05/03/[address]: 075918505 Never drinks alco hol 05/03/2023 Illegal/Recreational drug history Unknown *Has never used illegal/recreational drugs 05/03/2023 DNR Order/ Advanced Directive Unknown Full Code 05/03/2023 Allergies, Adverse Reactions, Alerts Substance Reaction Codes Entered Date Inactivated Date Status Aspirin (ASA) anaphylaxis RxNorm: 1191 05/03/2023 No Inactiv e Date Active NO KNOWN DRUG INTOLERANCES Unknown 05/03/2023 No Inactive Date Active Problems Condition Codes Effective Dates Condition St atus ASCVD (arteriosclerotic cardiovascular disease) ICD-10: I25.10 ICD-9: 429.2 05/03/2023 Active BPH (benign prostatic hyperplasia) ICD-1 0: N40.0 ICD-9: 600.00 05/03/2023 Active Hypertensive heart disease ICD-10: I11.9 ICD-9: 402.90 06/27/2023 Active Hypothyroidism, unspecified ICD-10: E03. 9 ICD-9: 244.9 05/03/2023 Active Type 2 diabetes mellitus ICD-10: E11.9 ICD-9: 250.00 05/03/2023 Active History of aortic valve replacement ICD- 10: Z95.2 ICD-9: V43.3 05/03/2023 Active Hypertension ICD-10: I10 ICD-9: 401.9 05/03/2023 Active Abnormal EKG ICD-10: R94.31 ICD-9: 794.31 05/03/2023 Active Adhesive capsulitis of both shoulders ICD-10: M75.01 ICD-9: 726.0 05/03/2023 Active Age-related cognitive decline ICD-10: R4 1.81 ICD-9: 294.9 05/03/2023 Active Anxiety ICD-10: F41.9 ICD-9: 300.00 05/03/2023 Active Encounter to establish care with new doctor ICD-10: Z76.89 ICD-9: V65.8 05/03/2023 Active History of quadruple bypass ICD-10: Z95. 1 ICD-9: V15.1 05/03/2023 Active Lower extremity weakness ICD-10: R29.898 ICD-9: 729.89 05/03/2023 Active Unsteadiness on feet ICD-10: R26.81 ICD-9: 781.2 05/03/2023 Active Medications Medication Codes Instructions Start Date Stop Date Status Fill Instructions lisinopril 5 mg tablet RxNorm: 002985 Take 1 Tablet(s) Oral every day 3 08/07/19 Active pantoprazole 40 mg tablet,delayed release RxNorm: 937802 Take 1 Tablet(s) Oral every day 30 minutes before meal 3 08/07/19 Active tamsulosin 0.4 mg capsule RxNorm: 666351 Take 1 Capsule(s) Oral every day 3 04/27/20 24 Active glimepiride 4 mg tablet RxNorm: 131406 Take 1 Tablet(s) Oral every day with first main meal 3 04/26/20 Active levothyroxine 75 mcg tablet RxNorm: 445654 Take 1 Tablet(s) Oral every day on an empty stomach 30 minutes before breakfast 3 04/26/20 24 Active clopidogrel 75 mg tablet RxNorm: 735006 Take 1 Tablet(s) Oral once daily 3 04/26/20 24 Active Januvia 100 mg tablet RxNorm: 484398 Take 1 Tablet(s) Oral every day 3 04/26/20 24 Active atorvastatin 40 mg tablet RxNorm: 097307 Take 1 Tablet(s) Oral every night at bedtime 3 04/26/20 24 Active hydroxyzine HCl 25 mg tablet RxNorm: 168623 Take 1 Tablet(s) Oral every day 3 04/26/20 24 Active Medication Administered No Medication Administered data Procedures Procedure Codes Date Electrocardiogram CPT-4: 04566 05/03/2023 Urinalysis, dip stick CPT-4: 09639 05/03/2023 [id number] CPT-4: 11745 Unknown Vital Signs Date Vital 06/27/2023 Blood Pressure 1: 116/80 Code: 8480-6 BMI: 26.2 Code: 28493-5 Heart Rate 1: 73 bpm Height: 5'6 Code: 8302-2 Respiratory Rate: 15 bpm SpO2: 96% Temperature: 37.1 (C) / 98.7 (F) Weight: 162 lbs Code: 57514-3 Reason For Visit Reason For Visit Effective Dates Notes Location 06/27/2023 at pt's home, hypertension 06/27/2023 CAD 06/27/2023 diabetes mellitus 06/27/2023 hypothyroidism 06/27/2023 prostate disease 06/27/2023 Encounters Encounter Performer Location Location Address Codes Hari e ([id number]) (EST PT) DETAILED TELEHEALTH VISIT Diagnosis: Hypertensive heart disease[ICD10: I11.9] Diagnosis: ASCVD (arteriosclerotic cardiovascular disease)[ICD10: I25.10] Diagnosis: Type 2 diabetes mellitus[ICD10: E11.9] Diagnosis: Hypothyroidism, unspecified[ICD10: E03.9] Diagnosis: BPH (benign prostatic hyperplasia)[ICD10: N40.0] [address] [place] [id number] CPT-4: 89901 4 Plan of Care Planned Activity Notes Codes Status Date Visit Plan: I11.9-402.90 Hyperte nsive heart disease (visit done via audio-Video telehealth., chronic, BP controlled on Lisinopril, statin, continue same med doses, labs reviewed, ) I25.10-429.2 ASCVD (arteriosclerotic cardiovascular disease) (chronic, s/p CABG, Aortic valve replaced, asymptomatic on plavix, statin, to f/u with Industrial Methods Consultant, ) E11.9-250.00 Type 2 diabetes mellitus (chronic, Hba1c 9.1, RBS 127 mg, BS is not well controlled, non compliant diet, advised to follow 1800 iveth diet, no concentrated sweets, continue Glimepiride, Januvia, , labs reviewed, ) E03.9-244.9 Hypothyroidism, unspecified (chronic, controlled on Levothyroxine, continue same med dose, labs reviewed, ) N40.0-600.00 BPH (benign prostatic hyperplasia) (chronic, controlled on flomax, followed by Urologist, ) visit done via audio-video telehealth by use of [employer] telehealth, 06/27/2023 Patient Education: Diabetes Complete d 06/27/2023 Patient Education: Hypertension Completed 06/27/2023 Patient Education: Patient Medication Summary Completed 06/27/2023 Patient Education: Heart Disease Completed 06/27/2023 Appointment: Jacinta Sosa WPtel: [address] [place] [address] [id number] 05/03/2023 Instructions Comment Date . I11.9-402.90 Hypertensive heart disease (visit done via audio-Video telehealth., chronic, BP controlled on Lisinopril, statin, continue same med doses, labs reviewed, ) I25.10-429.2 ASCVD (arteriosclerotic cardiovascular disease) (chronic, s/p CABG, Aortic valve replaced, asymptomatic on plavix, statin, to f/u with Industrial [employer] Consultant, ) E11.9-250.00 Type 2 diabetes mellitus (chronic, Hba1c 9.1, RBS 127 mg, BS is not well controlled, non compliant diet, advised to follow 1800 iveth diet, no concentrated sweets, continue Glimepiride, Januvia, , labs reviewed, ) E03.9-244.9 Hypothyroidism, unspecified (chronic, controlled on Levothyroxine, continue same med dose, labs reviewed, ) N40.0-600.00 BPH (benign prostatic hyperplasia) (chronic, controlled on flomax, followed by Urologist, ) visit done via audio-video telehealth by use of sight call telehealth, 06/27/2023 Medical Equipment No Medical Equipment data Advance Directives No Advance Directive data
--- OUTSIDE RECORDS SUMMARY | 2023-07-12 20:00 | XMS_ITS | CCD ---
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 Name Role Phone Unavailable Primary Care Provider Unavailabl e Unavailable Chronic Care Management Unavaila ble Summary Purpose DataExchange Insurance Providers Payer name Policy type / Coverage type Covered alliance party ID Effective Begin Date Effective End Date [place] CGS [id number] 2023 Unknown BCBS [place] [id number] Unknown Family history Father Diagnosis Age At Onset Heart attack Unknown Mother Diagnosis Age At Onset No Family Disease Entered N/A Social History Social History Element Codes Description Effec tive Dates Marital status Unknown 05/03/2023 Number of adults in household Unknown 3 05/03/2023 Tobacco history Unknown Former User 05/03/[address]: 172818644 Never drinks alco hol 05/03/2023 Illegal/Recreational drug [...] Condition Codes Effective Dates Condition St atus At high risk for falls ICD-10: Z91.81 ICD-9: V15.88 07/13/2023 Active Degenerative disc disease, lumbar ICD-10 : M51.36 ICD-9: 722.52 07/13/2023 Active Encounter for general adult medical examination with abnormal findings ICD-10: Z00.01 ICD-9: V70.0 07/13/2023 Active Frail elderly ICD-10: R54 ICD-9: 797 07/13/2023 Active ASCVD (arteriosclerotic cardiovascular disease) ICD-10: I25.10 [...] Fill Instructions lisinopril 5 mg tablet RxNorm: 660508 Take 1 Tablet(s) Oral every day 3 08/07/19 Inactive pantoprazole 40 mg tablet,delayed release RxNorm: 189722 Take 1 Tablet(s) Oral every day 30 minutes before meal 3 03/24/20 24 Inactive tamsulosin 0.4 mg capsule RxNorm: 163641 Take 1 Capsule(s) Oral every day 3 04/27/20 24 Active glimepiride 4 mg tablet RxNorm: 940694 Take 1 Tablet(s) Oral every day with first main meal 3 04/26/20 24 Active levothyroxine 75 mcg tablet RxNorm: 108933 Take 1 Tablet(s) Oral every day on an empty stomach 30 minutes before breakfast 3 04/26/20 24 Active clopidogrel 75 mg tablet RxNorm: 890575 Take 1 Tablet(s) Oral once daily 3 04/26/20 24 Active Januvia 100 mg tablet RxNorm: 253562 Take 1 Tablet(s) Oral every day 3 04/26/20 24 Active atorvastatin 40 mg tablet RxNorm: 234042 Take 1 Tablet(s) Oral every night at bedtime 3 04/26/20 24 Active hydroxyzine HCl 25 mg tablet RxNorm: 322217 Take 1 Tablet(s) Oral every day 3 04/26/20 24 Active Medication Administered No Medication Administered data Results Observation Observation Code Item Item Code Result Date S ervice Location Patient Health Questionnaire (PHQ2) Little interest or pleasure in doing things 01275-2 0 4 Unknown Patient Health Questionnaire (PHQ2) Feeling down, depressed, or hopeless 16272-9 1 4 Unknown Patient Health Questionnaire (PHQ2) Total Score 1 4 Unknown Procedures Procedure Codes Date Advance Care Planning discussed and documented C PT-4: 1123F 07/13/2023 Annual Wellness Visit (Initial Visit) CPT-4: G04 38 07/13/2023 Patient Screened for Future Fall Risk CPT-4: 110 0F 07/13/2023 Fall plan of care doc'd CPT-4: 0518F 07/13/19 MED LIST DOCD IN [facility] CPT-4: 1159F 07/13/2023 RVW MEDS BY RX/ IN [facility] CPT-4: 1160F 2023 Amnt pain noted; pain prsnt CPT-4: 1125F 06/17 Advance Care Planning discussed and documented C PT-4: 1123F 07/13/2023 PT SCRN TBCO ID NON USER CPT-4: G9903 06/17 Current tobacco non-user CPT-4: 1036F 024 LEVEL OF ACTIVITY ASSESS CPT-4: 1003F 024 Presence or Absence of Urinary Incontinence Asse ss CPT-4: 1090F 07/13/2023 Urinary incontinence plan of care documented CPT -4: 0509F 07/13/2023 Screening for clinical depre ssion is negative, follow-up plan not required CPT-4: G8510 07/13/2023 Electrocardiogram CPT-4: 65494 05/03/2023 Urinalysis, dip stick CPT-4: 16032 05/03/2023 [id number] CPT-4: 77023 Unknown Vital Signs Date Vital 07/13/2023 Blood Pressure 1: 118/74 Code: 8480-6 BMI: 25.3 Code: 71048-1 Heart Rate 1: 69 bpm Height: 5'6 Code: 8302-2 Respiratory Rate: 18 bpm SpO2: 98% Temperature: 36.4 (C) / 97.5 (F) Weight: 156 lbs 12 oz Code: 59303-5 Reason For Visit Reason For Visit Effective Dates Notes annual wellness visit 07/13/2023 Interim health update 07/13/2023 diabetes mellitus 07/13/2023 back pain 07/13/2023 Encounters Encounter Performer Location Location Address Codes Hari e ([id number]) Annual Wellness Visit (Initial Visit) Diagnosis: Encounter for general adult medical examination with abnormal findings[ICD10: Z00.01] Diagnosis: At high risk for falls[ICD10: Z91.81] Diagnosis: Frail elderly[ICD10: R54] Diagnosis: Degenerative disc disease, lumbar[ICD10: M51.36] Jacinta Ashley Office [address] [place] [address] CPT-4: G0438 07/13/2023 Plan of Care Planned Activity Notes Codes Status Date Visit Plan: Z00.01-V70.0 Encount er for general adult medical examination with abnormal findings Assessments completed this visit: Activities of Daily Living, Audit-C, Bladder Control Screening, Mini Cognitive Assessment, Depression Screening/PHQ-9, Falls Risk, Hearing Loss Screening, Home Safety, Medication Review, Monitoring Physical Activity, Pain Assessment, Tobacco Screening, STD Screening, Statin Prevention/Treatment of CVD. All of the following conditions were met during an Advanced Care Planning discussion that was less than 15 minutes. Discussion was voluntary and explained in detail. Details documented and/or reviewed in the Advanced Care Planning/Advanced Directive history section of patient medical record. List of current providers and suppliers: Reviewed with patient. Z91.81-V15.88 At high risk for falls Patient currently has DME to assist with falls. Declines therapy this visit R54-797 Frail elderly ambulates with straight cane, lives with elderly spouse and adult handicap son, pain limits mobility, independent with personal care M51.36-722.52 Degenerative disc disease, lumbar chronic low back pain worse with ambulation, denies using and medications for pain relief, pain typically subsides after he sits down, unable to determine if pain travels into LEs, continues with straight can for ambulation 07/13/2023 Patient Education: Patient Medication Summary Completed 07/13/2023 Patient Education: AWV Preventative Screening Schedule 2020 Completed 07/13/2023 Patient Education: Pain Management Completed 07/13/2023 Patient Education: Back Pain Complet ed 07/13/2023 Patient Education: Diabetes Complete d 07/13/2023 Appointment: Dean Wilson WPtel: [address] [place] [address] ETV 06/27/2023 Appointment: Jacinta Sosa WPtel: [address] [place] [address] [id number] 05/03/2023 Instructions Comment Date . Z00.01-V70.0 Encounter for general adult medical examination with abnormal findings Assessments completed this visit: Activities of Daily Living, Audit-C, Bladder Control Screening, Mini Cognitive Assessment, Depression Screening/PHQ-9, Falls Risk, Hearing Loss Screening, Home Safety, Medication Review, Monitoring Physical Activity, Pain Assessment, Tobacco Screening, STD Screening, Statin Prevention/Treatment of CVD. All of the following conditions were met during an Advanced Care Planning discussion that was less than 15 minutes. Discussion was voluntary and explained in detail. Details documented and/or reviewed in the Advanced Care Planning/Advanced Directive history section of patient medical record. List of current providers and suppliers: Reviewed with patient. Z91.81-V15.88 At high risk for falls Patient currently has DME to assist with falls. Declines therapy this visit R55-026 Frail elderly ambulates with straight cane, lives with elderly spouse and adult handicap son, pain limits mobility, independent with personal care M51.36-722.52 Degenerative disc disease, lumbar chronic low back pain worse with ambulation, denies using and medications for pain relief, pain typically subsides after he sits down, unable to determine if pain travels into LEs, continues with straight can for ambulation 07/13/2023 Medical Equipment No Medical Equipment data Advance Directives No Advance Directive data
--- OUTSIDE RECORDS SUMMARY | 2024-02-28 11:00 | XMS_ITS | Encounter Summary ---
Author Name [facility] [place] Organization [facility] [place] Address [address] [place] [id number] Care Team Providers Care Tabulating Clerk Name Role Phone KIRT CARDENAS Primary Care Provider Unavailabl e Insurance Providers: All historical and current Section Date Range: From patient's date of to the date document was created. This section includes the names of all active insurance providers for the patient. Insurance Provider Type of Coverage Plan Name Start of Policy Coverage End of Policy Coverage Group Number Member ID Insurance Provider's Telephone Number Policy Madera's Name Patient's Relationship to Policy Madera [id number] [facility] (FACILITY) MEDIGAP PLAN C [place] September 20, 2007 [id number] [place]) MEDICARE () PART A September 20, 2007 PART A [id number] [place]) MEDICARE () PART B September 20, 2007 PART B [id number] [place]) MEDICARE () PART A September 20, 2007 PART A [id number] [place]) MEDICARE () PART B September 20, 2007 PART B [id number] [place]) MEDICARE () PART A Jun 16, 2003 PART A [id number] [place]) MEDICARE () PART B Jun 16, 2003 PART B [id number] [place]) MEDICARE (M) PART A Jun 16, 2003 PART A [id number] [place]) MEDICARE (M) PART B Jun 16, 2003 PART B [id number] [place] PART D (WNR) PRESCRIPT ION PART D May 16, 2012 PART D [id number] [place] [employer] ([place]) PRESCRIPT [place] September 20, 2007 [id number] [place] Selected Encounter This section includes the information on record at [place] for the Encounter. Date/Time Encounter Type Encounter Description Reason Provider Source Feb 28, 2024 03:00 PM OFFICE O/P EST HI 40 MIN PODIATRY ICD-10-CM E11.42 Type 2 diabetes mellitus with diabetic polyneuropathy DIMPLE WELCH [place] Encounter Template Text not used by [facility] Assessments - Encounter Diagnoses This section includes the primary and secondary diagnoses documented for the Encounter. Date/Time Primary/Secondary Diagnosis Diagnosis Name Provider Source Feb 28, 2024 09:53 PM PRIMARY Type 2 diabetes mellitus with diabetic polyneuropathy YURIJOSH PECKY [facility] Feb 28, 2024 09:53 PM SECONDARY Foot drop, right foot TRESALENORAJOSHY [facility] Feb 28, 2024 09:53 PM SECONDARY Ingrowing nail STOLENORAJOSH TRUJILLO [facility] Feb 28, 2024 09:53 PM SECONDARY Pain in right ankle and joints of right foot TRESALENORAJOSH PECKY [facility] Feb 28, 2024 09:53 PM SECONDARY Peripheral vascular disease, unspecified STOLENORAJOHS RONNIE GALLARDO [facility] Feb 28, 2024 09:53 PM SECONDARY Tinea unguium STOLENORAJOSH TRUJILLO [facility] Plan of Treatment: Future Appointments (+ 6 months) and Future Tests (+/- 45 days) The Plan of Treatment section includes future care activities for the patient from all [facility] treatmentfacilities. This section includes future appointments and future orders which are active, pending or scheduled. Future Appointments This section includes appointments that were scheduled to occur 6 months from the date of the Encounter, up to a maximum of 20 appointments. The data comes from all [place] treatment facilities. Appointment Date/Time Appointment Type Appointme nt Facility Name Apr 27, 2024 02:00 PM AMBULATORY - NONE [facility] Jun 07, 2024 03:30 PM AMBULATORY - SURGERY [facility] Social History: Smoking Status (Most current) and Tobacco Use (All prior to encounter date) This section includes the most current, and the historical, smoking and tobacco- related health factors from the [facility] facility where the Encounter took place. Current Smoking Status This section includes the most current smoking, or tobacco-related health factor, from the [place] facility where the Encounter took place. Date/Time Current Smoking Status Comment Facil ity Apr 26, 2023 02:30 PM VA-TOBACCO QUIT 15 YRS OR MORE [facility] Tobacco Use History This section includes a history of the smoking, or tobacco-related health factors, that were collected on or before the date of the Encounter. The data comes from the [place] facility where the Encounter took place. Date/Time Smoking Status/Tobacco Use Comment F acility Apr 26, 2023 02:30 PM VA-TOBACCO QUIT 15 YRS OR MORE [facility] Apr 16, 2022 02:00 PM VA-TOBACCO FORMER USER [facility] Apr 16, 2022 02:00 PM VA-TOBACCO QUIT 15 YRS OR MORE [facility] Apr 16, 2021 02:00 PM VA-TOBACCO FORMER USER [facility] Apr 16, 2021 02:00 PM VA-TOBACCO QUIT 15 YRS OR MORE [facility] Nov 28, 2018 02:23 PM VA-TOBACCO NEVER USED [facility] Jun 13, 2018 01:32 PM VA-TOBACCO FORMER USER [facility] Jun 13, 2018 01:32 PM VA-TOBACCO QUIT 15 YRS OR MORE [facility] Jul 24, 2015 01:12 PM QUIT TOBACCO >7 YEARS AGO [facility] Advance Directives: All historical and current Section Date Range: From patient's date of to the date document was created. This section includes ALL of a patient's completed or amended VA Advance and Rescinded Directives. The entries below indicate that a directive exists for the patient, but an actual copy is not included with this document. The data comes from all [place] facilities. Date Advance Directives Provider Source Jul 20, 2022 ADVANCE DIRECTIVE DISCUSSION [facility] Encounter Notes: All associated encounter notes This section contains the clinical notes associated to the Encounter. Date/Time Encounter Note(s) Provider Source Feb 28, 2024 03:10 PM PODIATRY NOTE: LOCAL TITLE: PODIATRY CLINIC NOTE (T) STANDARD TITLE: PODIATRY NOTE DATE OF NOTE: FEB 28, 2024@15:10 ENTRY DATE: FEB 28, 2024@15:10:45 AUTHOR: MARVEL WELCH COSIGNER: URGENCY: STATUS: COMPLETED [facility] SOAP Note SUBJECTIVE: The patient is a 83 year old MALE. Chief Complaint: dm foot care Past Medical History: Pt presents today for dm foot care. Pt complains of odd feeling right foot. Don't feel it . Pt sees [facility] for most care. Notes blood sugar this morning was 133. Patient is poor historian. Does not know his most recent A1c, has not had labs at [place] in a long time. Patient does note significant fall sometime ago, unable to say exactly when. He had recent spine and knee x-ray in [facility]. Patient received phone call from PCP during our appointment today. Overheard talking about Achilles rupture, I question patient, he is unsure if he had any imaging studies completed. He denies injury to the right leg. Does note being off balance, his right foot slapping. He states he had talked to his PCP about a brace. He is now using a walker instead of a cane as well. Right great toenail sore for about the last month. PATIENT ALLERGIES DETAILED ALLERGIES/ADVERSE REACTIONS No Known Allergies AMRS - MEDS (REC SUCCINCT) Active and Recently Inpatient, Outpatient and Clinic Medications (including Supplies): Active Outpatient Medications Status ========= 1) ACCU-CHEK GUIDE (GLUCOSE) TEST STRIP USE 1 STRIP ACTIVE TESTING EVERY DAY 2) DICLOFENAC NA 1% TOP GEL APPLY 2GM MEASURED ON ACTIVE DOSING CARD EXTERNALLY TWICE A DAY NEEDED FOR OSTEOARTHRITIS FOR LEFT OR RIGHT ANKLE PAIN (GENTLY MASSAGE INTO SKIN) *FLAMMABLE: KEEP AWAY FROM HEAT AND FLAMES* 3) LANCET,SOFTCLIX USE LANCET(S) TESTING DIRECTED FOR ACTIVE BLOOD SUGAR Active Non-VA Medications Status ========= 1) Non-VA ASPIRIN 81MG CHEW TAB 81MG BY MOUTH EVERY DAY ACTIVE 2) Non-VA CARVEDILOL 6.25MG TAB 6.25MG MOUTH TWICE A DAY ACTIVE 3) Non-VA CLOPIDOGREL BISULFATE 75MG TAB 75MG MOUTH ACTIVE EVERY DAY 4) Non-VA CREON 12,000UNIT EC CAP 1 CAPSULE MOUTH THREE ACTIVE TIMES A DAY, WITH MEALS 5) Non-VA DUTASTERIDE 0.5MG CAP 0.5MG MOUTH EVERY DAY ACTIVE 6) Non-VA HYDROXYZINE PAMOATE 25MG CAP 25MG MOUTH AT ACTIVE BEDTIME 7) Non-VA METFORMIN HCL 1000MG TAB 1000MG MOUTH EVERY ACTIVE DAY 8) Non-VA PANTOPRAZOLE NA 40MG EC TAB 40MG MOUTH EVERY ACTIVE MORNING, ON AN EMPTY STOMACH 9) Non-VA SAXAGLIPTIN HCL 2.5MG TAB 2.5MG MOUTH ACTIVE 10) Non-VA SPIRONOLACTONE 25MG TAB 12.5MG MOUTH EVERY DAY ACTIVE 11) Non-VA TAMSULOSIN HCL 0.4MG CAP 0.4MG MOUTH AT ACTIVE BEDTIME 14 Total Medications MEDICATION RECONCILIATION MEDICATION RECONCILIATION REPORT reviewed and discussed with patient. VA prescription medications: Patient verifies that they are in receipt of a complete and accurate list of medications. Prescription medications from another source: Patient verifies that they are in receipt of a complete and accurate list of medications. Over the counter medications, vitamins, herbals, and nutritional supplements: Patient verifies that they are in receipt of a complete and accurate list of medications. ALLERGIES: ALLERGIES/ADVERSE REACTIONS No Known Allergies Food allergies: None known FOOT RISK LEVEL: DATE TIME HEALTH FACTOR ---- ---- 08/23/2023 14:30 DAY LIMB CARE LEVEL 3 11/29/2023 15:00 DAY LIMB CARE LEVEL 3 ACTIVE PROBLEM Carotid artery stenosis 04/16/2022 History of aortic valve replacement 04/16/2022 Constipation 04/16/2022 Diabetic neuropathy 07/20/2018 Benign prostatic hyperplasia 06/19/2018 Coronary artery disease 06/19/2018 Diabetes mellitus 06/19/2018 Benign essential hypertension 06/19/2018 Adjustment disorder 05/23/2018 Onychomycosis of toenails 04/20/2018 Hearing loss 07/24/2015 OBJECTIVE: Vasc: DP/PT non-palpable, biphasic on doppler bilateral. CFT 5 seconds to the digits. No dependent rubor noted. No edema noted. Absent hair growth to the digits. Skin thin and atrophic. Skin temp is warm to cool from proximal to distal. Neuro: Light touch sensation intact to hallux b/l. Protective sensation intact at 2/10 sites b/l as tested with SWMF Derm: Nails 1 b/l thickened, elongated and discolored with subungual debris; Right hallux nail incurvated at the medial border with scabbing and blood blister along the border.. No local signs of infection. Nails 2-5 b/l are yellow, elongated. Webspaces 1-4 b/l clean, dry, and intact. No open lesions noted. Skin appears well hydrated Musc: Dropfoot noted on the right. Mild partially reducible contracted lesser digits with adductovarus rotation of the 5th digit b/l. Pain to right hallux nail Patient Name: BROOKLYN ELY MRN: [id number] date: 1940 Sex: M Assigned Patient Location: [facility] Current Patient Location: [facility] Accession/Order Number: [id number] Exam Date: 12/27/2023 16:15 Report Date: 12/29/2023 13:54 At the request of: VERONICA ADAME Procedure: XR lumbar spine min 4V EXAMINATION: XR lumbar spine min 4V HISTORY: Lumbar Radiculopathy M54.16 COMPARISON: MRI lumbar spine 05/13/2021 FINDINGS: BONES: Moderate compression fracture involving superior endplate of L1. 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 DISC SPACES: Complete loss of the L4-5 disc space. Mild narrowing L5-S1. PARASPINOUS: Atherosclerotic disease of aorta. OTHER: Negative. XR/XR lumbar spine min 4V IMPRESSION: 1. Moderate compression fracture of L1; age indeterminant but suspected to be acute to subacute. 2. Stable grade 2 anterolisthesis of L5 on S1 but likely progression of marked degenerative disc disease. PAVE FOOT EXAM A foot risk level was completed. The following risk level was identified for this patient: +POD RISK SCORE+ --LEVEL 3 - (HIGH RISK) Sensory loss and diminished circulation and may have + Foot deformity Or any of the following by itself: + History of prior ulcer, + Osteomyelitis + History of prior amputation + Severe PVD + Charcot's joint disease with foot deformity + End Stage Renal Disease -POD RISK SCORE- Patient currently being followed by Podiatry or other foot care provider. LEVEL 3 FOOT EDUCATION: 1. Advised patient that extra depth footwear with soft molded inserts and braces may be required. 2. Advised patient not to walk barefoot. Instructed the patient to pay close attention to the style and fit of shoes. 3. Explained the importance of daily foot checks. Explained that loss of sensation leads to callouses. Callouses break down, which result in ulcers that may lead to gangrene and amputation. 4. Stressed the importance of daily foot hygiene. Warm (not hot) bathing of the feet, complete drying and thorough inspection for changes in the condition of the skin constitute daily foot care. Demonstrated how to do a thorough foot check. 5. Emphasized the use of clean, non-restrictive socks/stockings and well fitting shoes. 6. Stressed the importance of immediate follow-up of any foot injuries or ulcers. Explained that he/she should be non-weight bearing whenever there are lesions on the foot, to prevent cellular damage. Level of Understanding: Fair Patient/Caregiver having difficulty examining feet No Patient/caregiver has difficulty cleansing feet No Patient walks barefoot Never Instructed on the importance of not walking barefoot ASSESSMENT: After reviewing the H&P and clinical findings, this provider made the diagnosis of: Diabetes Mellitus with neuropathy Onychomycosis PVD Dropfootright PLAN: Treatment today consisted of: -Patient examination and evaluation. -Debridement of nails 1-5 b/l. Slant back to the right hallux medial nail border. Bacitracin and Band-Aid applied. Call with any concerns here. -Consult for AFO on the right. -Patient to return to clinic in 13 weeks RESPONSE TO CARE/RATIONALE FOR CARE: Patient stable, indications for regular follow-up due to loss of protective sensation and non-palpable pulses. We discussed his neuropathy.? New onset dropfoot right, spinal x-ray is concerning for compression fracture. Unsure how acute this is. Attempted to review records injury LV, no lower extremity records noted. Patient most concerned about his balance and falling. Recommend AFO, will place consult TOTAL TIME SPENT: Spent 42 minutes in care of this patient today including review of records, exam, and placing orders. /dina/ MARVEL WELCH FENCE MACHINE OPERATOR Signed: 02/28/2024 21:53 MARVEL WELCH [facility]
--- OUTSIDE RECORDS SUMMARY | 2024-06-05 11:30 | XMS_ITS | Encounter Summary ---
Author Name [facility] [place] [facility] [place] Organization [facility] [place] Address [address] [place] [id number] Care Team Providers Care On Air Host Name Role Phone CHESTER CARDENASCA Primary Care Provider Unavailabl e Insurance Providers: [...] Name Patient's Relationship to Policy Madera [id number] [facility] (FACILITY) MEDIGAP PLAN C [place] September 20, 2007 [id number] [place]) MEDICARE () PART A September 20, 2007 PART A [id number] [place]) MEDICARE () PART B September 20, 2007 PART B [id number] [place]) MEDICARE () PART A September 20, 2007 PART A [id number] [place]) MEDICARE () PART B September 20, 2007 PART B [id number] [place]) MEDICARE () PART A Jun 16, 2003 PART A [id number] [place]) MEDICARE () PART B Jun 16, 2003 PART B [id number] [place]) MEDICARE (M) PART B Jun 16, 2003 PART B [id number] [place]) MEDICARE (M) PART A Jun 16, 2003 PART A [id number] [place] PART D (WNR) PRESCRIPT ION PART D May 16, 2012 PART D [id number] [place] [employer] ([place]HE[place] PRESCRIPT [place] September 20, 2007 [id number] [place] Selected Encounter This section includes the information on record at [place] for the Encounter. Date/Time Encounter Type Encounter Description Reason Pro vider Source Jun 05, 2024 03:30 PM Outpatient Encounter PODIATRY IHE Encounter Template Text not used by [place] Plan of Treatment: Future Appointments (+ 6 months) and Future Tests (+/- 45 days) The Plan of Treatment section includes future care activities for the patient from all [place] treatmentfacilities. This section includes future appointments and future orders which are active, pending or scheduled. Future Appointments This section includes appointments that were scheduled to occur 6 months from the date of the Encounter, up to a maximum of 20 appointments. The data comes from all [place] treatment facilities. Appointment Date/Time Appointment Type Appointme nt Facility Name Jun 07, 2024 03:30 PM AMBULATORY - SURGERY [facility] Sep 06, 2024 01:30 PM AMBULATORY - NONE [facility] Sep 06, 2024 03:30 PM AMBULATORY - SURGERY [facility] Social History: Smoking Status (Most current) and Tobacco Use (All prior to encounter date) This section includes the most current, and the historical, smoking and tobacco- related health factors from the [place] facility where the Encounter took place. Current Smoking Status This section includes the most current smoking, or tobacco-related health factor, from the [place] facility where the Encounter took place. Date/Time Current Smoking Status Nayana manzo Apr 26, 2023 02:30 PM VA-TOBACCO FORMER USER [facility] Tobacco Use History This section includes a history of the smoking, or tobacco-related health factors, that were collected on or before the date of the Encounter. The data comes from the [place] facility where the Encounter took place. Date/Time [...] ALL of a patient's completed or amended [place] Advance and Rescinded Directives. The entries below indicate that a directive exists for the patient, but an actual copy is not included with this document. The data comes from all [place] facilities. Date Advance Directives Provider Source Jul 20, 2022 ADVANCE DIRECTIVE DISCUSSION MARYLINLELIA GALLARDO [facility] Encounter Notes: All associated encounter notes This section contains the clinical notes associated to the Encounter. Date/Time Encounter Note(s) Provider Source Jun 05, 2024 12:00 PM NO SHOW NOTE: LOCAL TITLE: NO SHOW (T)// NO SHOW/CANCELLATION NOTE STANDARD TITLE: NO SHOW NOTE DATE OF NOTE: JUN 05, 2024@12:00 ENTRY DATE: JUN 05, 2024@12:00:35 AUTHOR: MARVEL WELCH EXP COSIGNER: URGENCY: STATUS: COMPLETED Patient cancelled this appointment. /dina/ MARVEL WELCH PSYCHOLOGIST SOCIAL Signed: 06/05/2024 12:00 MARVEL WELCH [facility]
--- OUTSIDE RECORDS SUMMARY | 2024-06-07 11:30 | XMS_ITS | Encounter Summary ---
Author Name [facility] [place] Organization [place] Address [address] [place] [id number] Care Team Providers Care Cardiothoracic Physiotherapist Name Role Phone KIRT CARDENAS Primary Care [...] Name Patient's Relationship to Policy [place] [id number] [facility] (FACILITY) MEDIGAP PLAN C [place] September 20, 2007 [id number] [place] PAT[place] MEDICARE ([place]NR) MEDICARE () PART A September 20, 2007 PART A [id number] [place]IC[place] ([place]) MEDICARE () PART B September 20, 2007 PART B [id number] [place]IC[place] ([place]) MEDICARE () PART A September 20, 2007 PART A [id number] [place]IC[place] ([place]) MEDICARE () PART B September 20, 2007 PART B [id number] [place] MEDIC[place] ([place]) MEDICARE () PART A Jun 16, 2003 PART A [id number] [place]IC[place] ([place]) MEDICARE () PART B Jun 16, 2003 PART B [id number] [place] PATIENT MEDICARE ([place]NR) MEDICARE (M) PART B Jun 16, 2003 PART B [id number] [place] MEDIC[place] ([place]) MEDICARE (M) PART A Jun 16, 2003 PART A [id number] [place] PAT[place] MEDIC[place] PART D (WNR) PRESCRIPT ION PART D May 16, 2012 PART D [id number] [place] PAT[place] [employer] (ANTHE[place]) PRESCRIPT ION [place] September 20, 2007 [id number] [place] PAT[place] Selected Encounter This section includes the information on record at [place] for the Encounter. Date/Time Encounter Type Encounter Description Reason Provider Source Jun 07, 2024 03:30 PM OFFICE O/P EST LOW 20 MIN PODIATRY ICD-10-CM E11.42 Type 2 diabetes mellitus with diabetic polyneuropathy DIMPLE WELCH [place] Encounter Template Text not used by [facility] Assessments - Encounter Diagnoses This section includes the primary and secondary diagnoses documented for the Encounter. Date/Time Primary/Secondary Diagnosis Diagnosis Name Provider Source Jun 07, 2024 04:12 PM PRIMARY Type 2 diabetes mellitus with diabetic polyneuropathy YURIBELLAFLORY GALLARDO [facility] Jun 07, 2024 04:12 PM SECONDARY Foot drop, right foot YURIBELLAFLORY GALLARDO [facility] Jun 07, 2024 04:12 PM SECONDARY Pain in right toe(s) JOSH WELCH [facility] Jun 07, 2024 04:12 PM SECONDARY Peripheral vascular disease, unspecified STOLENORABELLAFLORY GALLARDO [facility] Jun 07, 2024 04:12 PM SECONDARY Tinea unguium JOSH WELCH [facility] Plan of Treatment: Future Appointments (+ [...] 20 appointments. The data comes from all [place] treatment facilities. Appointment Date/Time Appointment Type Appointme nt Facility Name Sep 06, 2024 01:30 PM AMBULATORY - NONE ELVIN Bernstein [facility] Sep 06, 2024 03:30 PM AMBULATORY - SURGERY WENDY MELBA [facility] Social History: Smoking Status (Most current) and Tobacco Use (All prior to encounter date) This section includes the most current, and the historical, smoking and tobacco- related health factors from the [place] facility where the Encounter took place. Current Smoking Status This section includes the most current smoking, or tobacco-related health factor, from the [place] facility where the Encounter took place. Date/Time Current Smoking Status Comment Facil ity Apr 26, 2023 02:30 PM VA-TOBACCO FORMER USER [facility] Tobacco Use History This section includes a history of the smoking, or tobacco-related health factors, that were collected on or before the date of the Encounter. The data comes from the [place] facility where the Encounter took place. Date/Time [...] this document. The data comes from all [place] facilities. Date Advance Directives Provider Source Jul 20, 2022 ADVANCE DIRECTIVE DISCUSSION [facility] COU[facility] Encounter Notes: All associated encounter notes This section contains the clinical notes associated to the Encounter. Date/Time Encounter Note(s) Provider Source Jun 07, 2024 03:44 PM PODIATRY NOTE: LOCAL TITLE: PODIATRY CLINIC NOTE (T) STANDARD TITLE: PODIATRY NOTE DATE OF NOTE: JUN 07, 2024@15:44 ENTRY DATE: JUN 07, 2024@15:44:17 AUTHOR: MARVEL WELCH COSIGNER: URGENCY: STATUS: COMPLETED [facility] SOAP Note SUBJECTIVE: The patient is a 83 year old MALE. Chief Complaint: dm foot care, f/u drop foot right Past Medical History: Pt presents today for dm foot care. Pt was never scheduled for prosthetics appt for brace. Continues to slap right foot when walking. Compalins of pain right great toenail. States blood sugar in the 130s this morning. PATIENT ALLERGIES DETAILED ALLERGIES/ADVERSE REACTIONS No Known [...] 11/29/2023 15:00 DAY LIMB CARE LEVEL 3 02/28/2024 15:00 DAY LIMB CARE LEVEL 3 ACTIVE [...] Skin thin and atrophic. Skin temp is cool to cold from proximal to distal. Neuro: Light touch sensation intact to hallux b/l. Protective sensation intact at 1/10 sites left, 4/10 right as tested with SWMF. Derm: Nails 1 b/l thickened, elongated and discolored with subungual debris; Right hallux nail incurvated at the medial border with debris to the medial nail groove. No local signs of infection. Nails 2-5 b/l are yellow, minimally elongated. Webspaces 1-4 b/l clean, dry, and intact. No open lesions noted. Skin appears well hydrated Musc: Dropfoot noted on the right, no dorsiflexion or plantarflexion strength Mild partially reducible contracted lesser. digits with adductovarus rotation of the 5th digit b/l. Pain to right hallux nail PAVE FOOT EXAM A foot risk level [...] to prevent cellular damage. Level of Understanding: Good Patient/Caregiver having difficulty examining feet No Patient/caregiver has difficulty cleansing feet No Patient walks barefoot Never Instructed on the importance of not walking barefoot ASSESSMENT: After reviewing the H&P and clinical findings, this provider made the diagnosis of: Diabetes Mellitus with neuropathy Onychomycosis PVD Dropfoot-right PLAN: Treatment today consisted of: -Patient examination and evaluation. -Debridement of nails 1-5 b/l. Slant back to the right hallux medial nail border. -Consult for AFO on the right. -Patient to return to clinic in 13 weeks RESPONSE TO CARE/RATIONALE FOR CARE: Patient stable, indications for regular follow-up due to loss of protective sensation and non-palpable pulses. Still awaiting AFO, using rollator for ambulation. /dina/ MARVEL WELCH SKIP OPERATOR Signed: 06/07/2024 16:12 MARVEL WELCH [facility]
--- OUTSIDE RECORDS SUMMARY | 2024-08-17 12:21 | XMS_ITS | Encounter Summary ---
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 (FACILITY) MEDIGAP PLAN C [place] September 20, 2007 [id number] [place] PAT[place] MEDICARE (WNR) MEDICARE () PART A September 20, 2007 PART A [id number] [place] PAT[place] MEDICARE ([place]NR) MEDICARE () PART B September 20, 2007 PART B [id number] [place] PAT[place] MEDIC[place] ([place]NR) MEDICARE () PART A September 20, 2007 PART A [id number] [place] PAT[place] MEDIC[place] ([place]NR) MEDICARE () PART B September 20, 2007 PART B [id number] [place] MEDIC[place] ([place]NR) MEDICARE () PART A Jun 16, 2003 PART A [id number] [place] MEDIC[place] (WNR) MEDICARE () PART B Jun 16, 2003 PART B [id number] [place] PATIENT MEDICARE (WNR) MEDICARE (M) PART A Jun 16, 2003 PART A [id number] [place] MEDIC[place] (WNR) MEDICARE (M) PART B Jun 16, 2003 PART B [id number] [place] PAT[place] MEDICARE PART D (WNR) PRESCRIPT ION PART D May 16, 2012 PART D [id number] 44A [place] PAT[place] [employer] ([place]HE[place]) PRESCRIPT ION [place] September 20, 2007 [id number] [place] PAT[place] Selected Encounter This section includes the information on record at [place] for the Encounter. Date/Time Encounter Type Encounter Description Reason Provider Source Aug 17, 2024 04:21 PM Outpatient Encounter ADMIN PAT ACTIVTIES (MASNONCT) ICD-10-CM Y93.9 Activity, unspecified KIRTI COULTER Encounter Template Text not used by [place] Assessments - Encounter Diagnoses This section includes the primary and secondary diagnoses documented for the Encounter. Date/Time Primary/Secondary Diagnosis Diagnosis Name Provider Source Aug 17, 2024 04:31 PM PRIMARY Activity, unspecified KIRTI COULTER [facility] Plan of Treatment: Future Appointments (+ 6 months) and Future Tests (+/- 45 days) The Plan of Treatment section includes future care activities for the patient from all [place] treatmentfacilities. This section includes future appointments and future orders which are active, pending or scheduled. Future Appointments This section includes appointments that were scheduled to occur 6 months from the date of the Encounter, up to a maximum of 20 appointments. The data comes from all [place] treatment facilities. Appointment Date/Time Appointment Type Appointme nt Facility Name Sep 06, 2024 01:30 PM AMBULATORY - NONE ELVIN Bernstein [facility] Sep 06, 2024 03:30 PM AMBULATORY - SURGERY WENDY REILLY [facility] Social History: Smoking Status (Most current) and Tobacco Use (All prior to encounter date) This section includes the most current, and the historical, smoking and tobacco- related health factors from the [place] facility where the Encounter took place. Current Smoking Status This section includes the most current smoking, or tobacco-related health factor, from the [place] facility where the Encounter took place. Date/Time Current Smoking Status Comment Facil ity Apr 26, 2023 02:30 PM VA-TOBACCO QUIT 15 YRS OR MORE [facility] Tobacco Use History This section includes a history of the smoking, or tobacco-related health factors, that were collected on or before the date of the Encounter. The data comes from the [place] facility where the Encounter took place. Date/Time [...] this document. The data comes from all [place] facilities. Date Advance Directives Provider Source Jul 20, 2022 ADVANCE DIRECTIVE DISCUSSION LELIA COULTER [facility] Encounter Notes: All associated encounter notes This section contains the clinical notes associated to the Encounter. Date/Time Encounter Note(s) Provider Source Aug 17, 2024 04:21 PM SOCIAL WORK NOTE: LOCAL TITLE: SOCIAL WORK PROGRESS NOTE STANDARD TITLE: SOCIAL WORK NOTE DATE OF NOTE: AUG 17, 2024@16:21 ENTRY DATE: AUG 17, 2024@16:21:50 AUTHOR: KIRTI COULTER EXP COSIGNER: URGENCY: STATUS: COMPLETED Phone call returned to [facility] [phone] who is asking if would be eligible for DRY ROOM ATTENDANT services. YEMI informed Josephine would need to reestablish with this clinic before any services would be available. YEMI requested [facility] contact to schedule PCP appointment. APS will meet with Josephine next week and assist with coordinating appointment. 5 minutes /es/ JIM WILCOX CLINICAL SOURCING CONSULTANT Signed: 08/17/2024 16:33 KIRTI COULTER [facility]
--- OUTSIDE RECORDS SUMMARY | 2024-09-06 11:30 | XMS_ITS | Encounter Summary ---
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 Name Role Phone CHESTER CARDENASCA Primary Care [...] Name Patient's Relationship to Policy [place] [id number] [facility] (FACILITY) MEDIGAP PLAN C [place] September 20, 2007 [id number] [place] PAT[place] MEDICARE (WNR) MEDICARE () PART A September 20, 2007 PART A [id number] [place] PAT[place] MEDICARE (WNR) MEDICARE () PART B September 20, 2007 PART B [id number] [place] PAT[place] MEDIC[place] ([place]NR) MEDICARE () PART A September 20, 2007 PART A [id number] [place] MEDIC[place] ([place]NR) MEDICARE () PART B September 20, 2007 PART B [id number] [place] MEDIC[place] ([place]NR) MEDICARE () PART A Jun 16, 2003 PART A [id number] [place] PAT[place] MEDIC[place] (WNR) MEDICARE () PART B Jun 16, 2003 PART B [id number] [place] PATIENT MEDICARE (WNR) MEDICARE (M) PART B Jun 16, 2003 PART B [id number] [place] PAT[place] MEDICARE (WNR) MEDICARE (M) PART A Jun 16, 2003 PART A [id number] [place] PATIENT MEDICARE PART D (WNR) PRESCRIPT ION PART D May 16, 2012 PART D [id number] [place] PATIENT [employer] S[employer] (ANTHEM) PRESCRIPT ION [place] September 20, 2007 [id number] [place] PAT[place] Selected Encounter This section includes the information on record at [place] for the Encounter. Date/Time Encounter Type Encounter Description Reason Pro vider Source Sep 06, 2024 03:30 PM Outpatient Encounter PODIATRY IHE Encounter Template Text not used by [place] Plan of Treatment: Future Appointments (+ 6 months) and Future Tests (+/- 45 days) The Plan of Treatment section includes future care activities for the patient from all [place] treatmentfacilities. This section includes future appointments and future orders which are active, pending or scheduled. Future Appointments This section includes appointments that were scheduled to occur 6 months from the date of the Encounter, up to a maximum of 20 appointments. The data comes from all [place] treatment facilities. Appointment Date/Time Appointment Type Appointme nt Facility Name October 11, 2024 02:00 PM AMBULATORY - NONE ELVIN Bernstein [facility] Nov 22, 2024 11:00 AM AMBULATORY - SURGERY WENDY REILLY [facility] Social History: Smoking Status (Most current) and Tobacco Use (All prior to encounter date) This section includes the most current, and the historical, smoking and tobacco- related health factors from the [place] facility where the Encounter took place. Current Smoking Status This section includes the most current smoking, or tobacco-related health factor, from the [place] facility where the Encounter took place. Date/Time Current Smoking Status Comment Facil ity Apr 26, 2023 02:30 PM VA-TOBACCO QUIT 15 YRS OR MORE [facility] Tobacco Use History This section includes a history of the smoking, or tobacco-related health factors, that were collected on or before the date of the Encounter. The data comes from the [place] facility where the Encounter took place. Date/Time [...] ALL of a patient's completed or amended [place] Advance and Rescinded Directives. The entries below indicate that a directive exists for the patient, but an actual copy is not included with this document. The data comes from all [place] facilities. Date Advance Directives Provider Source Jul 20, 2022 ADVANCE DIRECTIVE DISCUSSION LELIA COULTER [facility] Encounter Notes: All associated encounter notes This section contains the clinical notes associated to the Encounter. Date/Time Encounter Note(s) Provider Source Sep 06, 2024 03:33 PM NO SHOW NOTE: LOCAL TITLE: NO SHOW (T)// NO SHOW/CANCELLATION NOTE STANDARD TITLE: NO SHOW NOTE DATE OF NOTE: SEP 06, 2024@15:33 ENTRY DATE: SEP 06, 2024@15:33:14 AUTHOR: MARVEL WELCH EXP COSIGNER: URGENCY: STATUS: COMPLETED Patient cancelled this appointment. /dina/ MARVEL WELCH PERMASTONE MECHANIC Signed: 09/06/2024 15:33 MARVEL WELCH [facility]
--- OUTSIDE RECORDS SUMMARY | 2024-09-17 11:10 | XMS_ITS | Encounter Summary ---
Author Name [facility] [place] Organization [facility] [place] Address [address] [place] [id number] Care Team Providers Care Tab Builder Name Role Phone KIRT CARDENAS Primary Care [...] Name Patient's Relationship to Policy [place] [id number] [facility] (FACILITY) MEDIGAP PLAN C [place] September 20, 2007 [id number] [phone] [place] ([place]NR) MEDICARE () PART A September 20, 2007 PART A [id number] [place]) MEDICARE () PART B September 20, 2007 PART B [id number] [place]) MEDICARE () PART A September 20, 2007 PART A [id number] [place]) MEDICARE () PART B September 20, 2007 PART B [id number] [place]) MEDICARE () PART A Jun 16, 2003 PART A [id number] [place]) MEDICARE () PART B Jun 16, 2003 PART B [id number] [place] MEDIC[place] ([place]NR) MEDICARE (M) PART A Jun 16, 2003 PART A [id number] [place] ([place]) MEDICARE (M) PART B Jun 16, 2003 PART B [id number] [place]IC[place] PART D (WNR) PRESCRIPT ION PART D May 16, 2012 PART D [id number] 44A [place] PAT[place] [employer] (ANTHE[place]) PRESCRIPT ION [place] September 20, 2007 [id number] [place] Selected Encounter This section includes the information on record at [place] for the Encounter. Date/Time Encounter Type Encounter Description Reason Provider Source September 17, 2024 03:10 PM Outpatient Encounter ADMIN PAT ACTIVTIES (MASNONCT) ICD-10-CM Y93.9 Activity, unspecified KIRTI COULTER Encounter Template Text not used by [place] Assessments - Encounter Diagnoses This section includes the primary and secondary diagnoses documented for the Encounter. Date/Time Primary/Secondary Diagnosis Diagnosis Name Provider Source September 17, 2024 03:17 PM PRIMARY Activity, unspecified KIRTI COULTER [facility] Plan of Treatment: Future Appointments (+ 6 months) and Future Tests (+/- 45 days) The Plan of Treatment section includes future care activities for the patient from all [place] treatmentfacilities. This section includes future appointments and future orders which are active, pending or scheduled. Future Appointments This section includes appointments that were scheduled to occur 6 months from the date of the Encounter, up to a maximum of 20 appointments. The data comes from all [place] treatment facilities. Appointment Date/Time Appointment Type Appointme nt Facility Name Nov 30, 2024 01:00 PM [facility]ULATORY [facility] NONE [facility] Jan 18, 2025 01:30 PM AMBULATORY - NONE [facility] Social History: Smoking Status (Most current) and Tobacco Use (All prior to encounter date) This section includes the most current, and the historical, smoking and tobacco- related health factors from the [facility] facility where the Encounter took place. Current Smoking Status This section includes the most current smoking, or tobacco-related health factor, from the [place] facility where the Encounter took place. Date/Time Current Smoking Status Comment Facil ity Apr 26, 2023 02:30 PM VA-TOBACCO FORMER USER [facility] Tobacco Use History This section includes a history of the smoking, or tobacco-related health factors, that were collected on or before the date of the Encounter. The data comes from the [place] facility where the Encounter took place. Date/Time [...] this document. The data comes from all [place] facilities. Date Advance Directives Provider Source Jul 20, 2022 ADVANCE DIRECTIVE DISCUSSION LELIA COULTER CB Encounter Notes: All associated encounter notes This section contains the clinical notes associated to the Encounter. Date/Time Encounter Note(s) Provider Source September 17, 2024 03:10 PM SOCIAL WORK NOTE: LOCAL TITLE: SOCIAL WORK PROGRESS NOTE STANDARD TITLE: SOCIAL WORK NOTE DATE OF NOTE: SEPTEMBER 17, 2024@15:10 ENTRY DATE: SEPTEMBER 17, 2024@15:10:45 AUTHOR: KIRTI COULTER EXP COSIGNER: URGENCY: STATUS: COMPLETED Phone call returned to [facility] [phone] who informed is currently at [facility] for [facility] resp[facility]. Silverthorne left his Spouse and handicapped child and went to the hospital. Silverthorne was found that he could not care for himself let alone his family. Long-term plan has not been identified for Silverthorne. SW provided upcoming clinic podiatry appointment and requested agency keep this clinic updated as to long-term plan. YEMI is including team members for informational purposes. 5 minutes /es/ JIM WILCOX CLINICAL PHOTO CHECKER Signed: 09/17/2024 15:19 Receipt Acknowledged By: 09/17/2024 16:07 /es/ MALINDA HALL LICENSED PRACTICAL NURSE 09/19/2024 10:46 /es/ IRLANDA DOWELL REGISTERED NURSE 09/17/2024 15:30 /es/ KIRT CARDENAS NURSE PRACTITIONER 09/17/2024 16:09 /es/ MARVEL WELCH DIRECTOR OF PROPERTY MANAGEMENT KIRTI COULTER OC
--- OUTSIDE RECORDS SUMMARY | 2024-11-22 07:00 | XMS_ITS | Encounter Summary ---
Author Name [facility] Organization [facility] [place] Address [address] [place] [id number] Care Team Providers Care Oleomargarine Maker Name Role Phone CHESTER CARDENASCA Primary Care [...] Name Patient's Relationship to Policy [place] [id number] [facility] (FACILITY) MEDIGAP PLAN C [place] September 20, 2007 [id number] [place] ([place]NR) MEDICARE () PART A September 20, 2007 PART A [id number] [place]IC[place] ([place]) MEDICARE () PART B September 20, 2007 PART B [id number] [place]) MEDICARE () PART A September 20, 2007 PART A [id number] [place] ([place]) MEDICARE () PART B September 20, 2007 PART B [id number] [place]IC[place] ([place]) MEDICARE () PART A Jun 16, 2003 PART A [id number] [place] ([place]NR) MEDICARE () PART B Jun 16, 2003 PART B [id number] [place] MEDIC[place] ([place]NR) MEDICARE (M) PART A Jun 16, 2003 PART A [id number] [place] ([place]NR) MEDICARE (M) PART B Jun 16, 2003 PART B [id number] [place] MEDIC[place] PART D (WNR) PRESCRIPT ION PART D May 16, 2012 PART D [id number] 44A [place] PAT[place] [employer] ([place]) PRESCRIPT ION [place] September 20, 2007 [id number] [place] Selected Encounter This section includes the information on record at [place] for the Encounter. Date/Time Encounter Type Encounter Description Reason Pro vider Source Nov 22, 2024 11:00 AM Outpatient Encounter PODIATRY IHE Encounter Template Text not used by [place] Plan of Treatment: Future Appointments (+ 6 months) and Future Tests (+/- 45 days) The Plan of Treatment section includes future care activities for the patient from all [place] treatmentfacilities. This section includes future appointments and future orders which are active, pending or scheduled. Future Appointments This section includes appointments that were scheduled to occur 6 months from the date of the Encounter, up to a maximum of 20 appointments. The data comes from all [place] treatment facilities. Appointment Date/Time Appointment Type Appointme nt Facility Name Nov 30, 2024 01:00 PM AMBULATORY - NONE [facility] Jan 18, 2025 01:30 PM AMBULATORY - NONE [facility] Social History: Smoking Status (Most current) and Tobacco Use (All prior to encounter date) This section includes the most current, and the historical, smoking and tobacco- related health factors from the [place] facility where the Encounter took place. Current Smoking Status This section includes the most current smoking, or tobacco-related health factor, from the [place] facility where the Encounter took place. Date/Time Current Smoking Status Nayana manzo Apr 26, 2023 02:30 PM [facility]-TOBACCO FORMER USER [facility] Tobacco Use History This section includes a history of the smoking, or tobacco-related health factors, that were collected on or before the date of the Encounter. The data comes from the [place] facility where the Encounter took place. Date/Time [...] this document. The data comes from all [place] facilities. Date Advance Directives Provider Source Jul 20, 2022 ADVANCE DIRECTIVE DISCUSSION LELIA COULTER CB Encounter Notes: All associated encounter notes This section contains the clinical notes associated to the Encounter. Date/Time Encounter Note(s) Provider Source Nov 22, 2024 11:11 AM NO SHOW NOTE: LOCAL TITLE: NO SHOW (T)// NO SHOW/CANCELLATION NOTE STANDARD TITLE: NO SHOW NOTE DATE OF NOTE: NOV 22, 2024@11:11 ENTRY DATE: NOV 22, 2024@11:11:08 AUTHOR: MARVEL WELCH EXP COSIGNER: URGENCY: STATUS: COMPLETED Patient cancelled this appointment. /dina/ MARVEL WELCH CUSTOMER AGENT Signed: 11/22/2024 11:11 MARVEL WELCH [facility]
--- OUTSIDE RECORDS SUMMARY | 2025-01-09 20:36 | XMS_ITS | Continuity of Care Document ---
Author Name [facility] Organization [facility] Care Team Providers Care Adult Psychiatrist Name Role Phone [facility] Unavailable Unavailable Problems Combined list of problems from Department of [facility] and [facility] facilities. It does not include entries that were removed or entered in error. Problem Status Onset Date Problem Type Date of Resolution Comments Source Adjustment disorder Active Condition [facility] Benign essential hypertension Active Condition [facility] Benign prostatic hyperplasia Active Condition [facility] Carotid artery stenosis Active Condition [facility] Constipation Active Condition [facility] Coronary artery disease Active Condition [facility] Diabetes mellitus Active Condition [facility] Diabetic neuropathy Active Condition [facility] Hearing loss Active Condition [facility] History of aortic valve replacement Active Condition [facility] Onychomycosis of toenails Active Condition [facility] Diagnosis: ICD-10-CM E11.9 Type 2 diabetes mellitus without complications Active Diagnosis [facility] Diagnosis: ICD-10-CM Y93.9 Activity, unspecified Active Diagnosis [facility] Diagnosis: ICD-10-CM 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 Medication Details Route Status Patient Instructions Prescription Expires Prescription Number Last Dispense Date Ordering Provider Order Date Order Qty Source AMYLASE 60,000UNIT/ LIPASE 12,000UNIT/ PROTEASE 38,000UNIT CAP,EC TAKE 1 CAPSULE BY MOUTH THREE TIMES A DAY, WITH MEALS ORAL ACTIVE MATT CARDENAS A 2022 [facility] ASPIRIN 81MG TAB,CHEWABL E CHEW AND SWALLOW ONE TABLET BY MOUTH EVERY DAY ORAL ACTIVE ZELALEM GRIMALDO 2017 [facility] CARVEDILOL 6.25MG TAB TAKE ONE TABLET BY MOUTH TWICE A DAY ORAL ACTIVE RONALD,RE TIEN A [facility] CLOPIDOGREL BISULFATE 75MG TAB TAKE ONE TABLET BY MOUTH EVERY DAY ORAL ACTIVE JAKE PAGE 2017 [place] [facility] DICLOFENAC NA 1% GEL,TOP APPLY 2GM MEASURED ON DOSING CARD EXTERNAL LY TWICE A DAY NEEDED FOR OSTEOART HRITIS FOR LEFT OR RIGHT ANKLE PAIN (GENTLY MASSAGE INTO SKIN) *FLAMMAB LE: KEEP AWAY FROM HEAT AND FLAMES* TOPICA L ACTIVE 06/19/2025 [id number] STONava COOLEY ENNIFER 2024 200 [facility] DICLOFENAC NA 1% GEL,TOP APPLY 2GM MEASURED ON DOSING CARD EXTERNAL LY TWICE A DAY NEEDED FOR OSTEOART HRITIS FOR LEFT OR RIGHT ANKLE PAIN (GENTLY MASSAGE INTO SKIN) *FLAMMAB LE: KEEP AWAY FROM HEAT AND FLAMES* TOPICA L DISCONT INUED 08/23/2024 [id number] Nava WELCH ENNIFER 2023 200 [facility] DUTASTERIDE 0.5MG CAP TAKE 1 CAPSULE BY MOUTH EVERY DAY ORAL ACTIVE RONALD,RE TIEN A 2021 [facility] HYDROXYZINE PAMOATE 25MG CAP TAKE 1 CAPSULE BY MOUTH AT BEDTIME ORAL ACTIVE SHENA CHILDRESS 2019 [facility] METFORMIN HCL 1000MG TAB TAKE ONE TABLET BY MOUTH EVERY DAY ORAL ACTIVE RONALD,RE TIEN A 2021 [facility] PANTOPRAZOL E NA 40MG TAB,EC TAKE ONE TABLET BY MOUTH EVERY MORNING, ON AN EMPTY STOMACH ORAL ACTIVE JAKE PAGE 2017 [place] [facility] SAXAGLIPTIN HCL 2.5MG TAB TAKE ONE TABLET BY MOUTH ORAL ACTIVE RONALD,RE TIEN A 2021 [facility] SPIRONOLACT ONE 25MG TAB TAKE ONE-HALF TABLET BY MOUTH EVERY DAY ORAL ACTIVE RONALD,RE TIEN A 2021 [facility] TAMSULOSIN HCL 0.4MG CAP TAKE 1 CAPSULE BY MOUTH AT BEDTIME ORAL ACTIVE NARCISO HOLCOMB 2015 [facility] Immunizations Combined list of available immunizations from the Department of Defense and Veterans Affairs facilities. Immunization Series Date Given Administered By Site Reaction Lot Number CVX Code Drug Engineer And Geologist Status Comments Source INFLUENZA, UNSPECIFIED FORMULATION 2022 88 complet ed HISTORICA L INFORMATI ON - FROM PATIENT'S RECALL, [facility] INFLUENZA, UNSPECIFIED FORMULATION 2021 88 complet ed HISTORICA L INFORMATI ON - FROM OTHER PROVIDER, patient states he received vaccine at his doctor's office Dr. Kenzie [facility] INFLUENZA, HIGH DOSE SEASONAL 6 2021 135 complet ed HISTORICA L INFORMATI ON - FROM OTHER REGISTRY, [facility] COVID-19 (MODERNA), MRNA, LNP-S, PF, 100 MCG/0.5ML DOSE OR 50 MCG/0.25ML DOSE 3 2020 207 complet ed HISTORICA L INFORMATI ON - FROM OTHER REGISTRY, [facility] INFLUENZA, HIGH DOSE SEASONAL 5 2020 135 complet ed HISTORICA L INFORMATI ON - FROM OTHER REGISTRY, [facility] INFLUENZA, UNSPECIFIED FORMULATION 2020 88 complet ed [facility] COVID-19 (PFIZER), MRNA, LNP-S, PF, 30 MCG/0.3 ML DOSE 2 2020 208 complet ed [facility] COVID-19 (PFIZER), MRNA, LNP-S, PF, 30 MCG/0.3 ML DOSE 1 2020 208 complet [facility] INFLUENZA, TRIVALENT, ADJUVANTED 4 2019 168 complet ed HISTORICA L INFORMATI ON - FROM OTHER REGISTRY, [facility] INFLUENZA (HISTORICAL) [address] kenzie [facility] INFLUENZA (HISTORICAL) [address] Kenzie [facility] INFLUENZA, HIGH DOSE SEASONAL 3 2016 135 complet ed HISTORICA L INFORMATI ON - FROM OTHER REGISTRY, [facility] PNEUMOCOCCAL POLYSACCHARID E PPV23 2016 33 complet ed [facility]. [facility] PNEUMOCOCCAL, UNSPECIFIED FORMULATION 2016 109 complet ed [facility]. [facility] INFLUENZA, HIGH DOSE SEASONAL 2 2015 135 complet ed HISTORICA L INFORMATI ON - FROM OTHER REGISTRY, [facility] INFLUENZA (HISTORICAL) 2014 88 complet ed PMD [facility] INFLUENZA, WHOLE 1 2008 16 complet ed HISTORICA L INFORMATI ON - FROM OTHER REGISTRY, [facility] Results Combined list of recent chemistry, hematology and other laboratory results from Department of Defense and Veterans Affairs, ranging from 15 months to all on record, depending upon the facility. Order Name Results Value Reference Range Date Interpretation Specimen Comments Source HEMOGLOB IN A1C HEMOGLOBIN A1C/HEMOGL OBIN.TOTAL IN BLOOD 7.2 3.6 - 5.7 04/27 H Specimen Type: BLOOD Comment: Values obtained from A1C measurement s can vary. For typical A1C assays, a reported value of 7.0 could actually be between 6.72 and 7.28 if measured by a reference method. A reported value of 9.0 could actually be between 8.73 and 9.27. Ref: http://www. ngsp.org/[place] Pdata.asp Ordering Provider: RALPH CARDENAS CCA Report Released Date/Time: Apr 20, 2024 04:11 PM Reporting Lab: [place] [phone] Performing Lab: [place] [phone] [facility] FREE T4 THYROXINE (T4) FREE [MASS/VOLU ME] IN SERUM OR PLASMA 1.24 ng/dL 0.7 - 1.48 04/27 Specimen Type: PLASMA Comment: DLDLREF RANGE: NEAR OR ABOVE OPTIMAL: 100-129 mg/dL BORDERLINE DLDLHIGH: 130-159 mg/dL HIGH: 160-189 mg/dL VERY HIGH: >=190 TRIG REF RANGE: BORDERLINE HIGH: 150-199 mg/dL HIGH: 200-499 mg/dL TRIG VERY HIGH: >=500 mg/dL CREA eGFR was calculated using the CKD-EPI 2020 equation. CHOL REF RANGE: BORDERLINE HIGH: 200-239 mg/dL HIGH: >=240 mg/dL Ordering Provider: RALPH CARDENAS CCA Report Released Date/Time: Apr 20, 2024 04:11 PM Reporting Lab: [address] [address] Performing Lab: [place] [phone] [facility] TSH THYROTROPI N [UNITS/VOL UME] IN SERUM OR PLASMA BY DETECTION LIMIT <= 0.005 MIU/L 1.759 u[IU]/mL 0.360 - 4.500 04/27 Specimen Type: PLASMA Comment: DLDLREF RANGE: NEAR OR ABOVE OPTIMAL: 100-129 mg/dL BORDERLINE DLDLHIGH: 130-159 mg/dL HIGH: 160-189 mg/dL VERY HIGH: >=190 TRIG REF RANGE: BORDERLINE HIGH: 150-199 mg/dL HIGH: 200-499 mg/dL TRIG VERY HIGH: >=500 mg/dL CREA eGFR was calculated using the CKD-EPI 2020 equation. CHOL REF RANGE: BORDERLINE HIGH: 200-239 mg/dL HIGH: >=240 mg/dL Ordering Provider: RALPH CARDENAS CCA A Report Released Date/Time: Apr 20, 2024 04:11 PM Reporting Lab: [place] [phone] Performing Lab: [place] [phone] [facility] MICROALB UMIN/CRE ATININE RATIO PANEL MICROALBUM IN [MASS/VOLU ME] IN URINE 2 mg/dL <10 - 10 04/27 Specimen Type: URINE No comment entered. Ordering Provider: RALPH CARDENAS CCA A Report Released Date/Time: Apr 20, 2024 04:11 PM Reporting Lab: [place] [phone] Performing Lab: [place] [phone] [facility] MICROALB UMIN/CRE ATININE RATIO PANEL CREATININE [MASS/VOLU ME] IN URINE 76.09 mg/dL 04/27 Specimen Type: URINE No comment entered. Ordering Provider: RALPH CARDENAS CCA A Report Released Date/Time: Apr 20, 2024 04:11 PM Reporting Lab: [address] [phone] Performing Lab: [place] [phone] [facility] MICROALB UMIN/CRE ATININE RATIO PANEL MICROALBUM IN/CREATIN INE [MASS RATIO] IN URINE 26.30 mg/g <19.9 - 19.9 04/27 H Specimen Type: URINE No comment entered. Ordering Provider: RALPH CARDENAS CCA A Report Released Date/Time: Apr 20, 2024 04:11 PM Reporting Lab: [place] [phone] Performing Lab: [place] [phone] [place] [address] CBC LEUKOCYTES [#/VOLUME] IN BLOOD BY AUTOMATED COUNT 10.6 10*3/uL 3.6 - 11.0 04/27 Specimen Type: BLOOD No comment entered. Ordering Provider: RALPH CARDENAS CCA A Report Released Date/Time: Apr 20, 2024 04:11 PM Reporting Lab: [place] [phone] Performing Lab: [place] [phone] CBC ERYTHROCYT ES [#/VOLUME] IN BLOOD BY AUTOMATED COUNT 4.00 10*6/uL 4.47 - 5.83 04/27 L Specimen Type: BLOOD No comment entered. Ordering Provider: RALPH CARDENAS CCA A Report Released Date/Time: Apr 20, 2024 04:11 PM Reporting Lab: [place] [phone] Performing Lab: [place] [phone] CBC HEMOGLOBIN [MASS/VOLU ME] IN BLOOD 12.5 g/dL 13.6 - 17.4 04/27 L Specimen Type: BLOOD No comment entered. Ordering Provider: RALPH CARDENAS CCA A Report Released Date/Time: Apr 20, 2024 04:11 PM Reporting Lab: [place] [phone] Performing Lab: [place] [phone] [facility] CBC HEMATOCRIT [VOLUME FRACTION] OF BLOOD BY AUTOMATED COUNT 36.9 40.0 - 51.0 04/27 L Specimen Type: BLOOD No comment entered. Ordering Provider: RALPH CARDENAS CCA A Report Released Date/Time: Apr 20, 2024 04:11 PM Reporting Lab: [place] [phone] Performing Lab: [place] [phone] CBC MCV [ENTITIC VOLUME] BY AUTOMATED COUNT 92.3 fL 80.0 - 96.0 04/27 Specimen Type: BLOOD No comment entered. Ordering Provider: RALPH CARDENAS CCA A Report Released Date/Time: Apr 20, 2024 04:11 PM Reporting Lab: [place] [phone] Performing Lab: [place] [phone] [place] [address] CBC MCH [ENTITIC MASS] BY AUTOMATED COUNT 31.3 pg 27.0 - 31.0 04/27 H Specimen Type: BLOOD No comment entered. Ordering Provider: RALPH CARDENAS CCA A Report Released Date/Time: Apr 20, 2024 04:11 PM Reporting Lab: [place] [phone] Performing Lab: [place] [phone] [place] [address] CBC MCHC [MASS/VOLU ME] BY AUTOMATED COUNT 34.0 g/dL 31.5 - 36.5 04/27 Specimen Type: BLOOD No comment entered. Ordering Provider: RALPH CARDENAS CCA A Report Released Date/Time: Apr 20, 2024 04:11 PM Reporting Lab: [place] [phone] Performing Lab: [place] [phone] [place] [address] CBC PLATELETS [#/VOLUME] IN BLOOD BY AUTOMATED COUNT 309 10*3/uL 150 - 400 04/27 Specimen Type: BLOOD No comment entered. Ordering Provider: RALPH CARDENAS CCA A Report Released Date/Time: Apr 20, 2024 04:11 PM Reporting Lab: [place] [phone] Performing Lab: [place] [phone] [facility] CBC LYMPHOCYTE S/100 LEUKOCYTES IN BLOOD BY AUTOMATED COUNT 31.9 21.0 - 51.0 04/27 Specimen Type: BLOOD No comment entered. Ordering Provider: RALPH CARDENAS CCA A Report Released Date/Time: Apr 20, 2024 04:11 PM Reporting Lab: [address] [phone] Performing Lab: [place] [phone] [facility] CBC MONOCYTES/ 100 LEUKOCYTES IN BLOOD BY AUTOMATED COUNT 8.8 4.0 - 8.0 04/27 H Specimen Type: BLOOD No comment entered. Ordering Provider: RALPH CARDENAS CCA A Report Released Date/Time: Apr 20, 2024 04:11 PM Reporting Lab: [place] [phone] Performing Lab: [place] [phone] CBC NUCLEATED ERYTHROCYT ES/100 LEUKOCYTES [RATIO] IN BLOOD BY MANUAL COUNT 0.0 /100{WBC s} 04/27 Specimen Type: BLOOD No comment entered. Ordering Provider: RALPH CARDENAS CCA A Report Released Date/Time: Apr 20, 2024 04:11 PM Reporting Lab: [address] [phone] Performing Lab: [place] [phone] [place] [address] CBC ERYTHROCYT E DISTRIBUTI ON WIDTH [RATIO] BY AUTOMATED COUNT 14.1 11.2 - 15.8 04/27 Specimen Type: BLOOD No comment entered. Ordering Provider: RALPH CARDENAS CCA A Report Released Date/Time: Apr 20, 2024 04:11 PM Reporting Lab: [address] [phone] Performing Lab: [address] [address] [facility] CBC NEUTROPHIL S/100 LEUKOCYTES IN BLOOD BY AUTOMATED COUNT 57.0 54.0 - 78.0 04/27 Specimen Type: BLOOD No comment entered. Ordering Provider: RALPH CARDENAS CCA A Report Released Date/Time: Apr 20, 2024 04:11 PM Reporting Lab: [address] [phone] Performing Lab: [place] [phone] [facility] CBC EOSINOPHIL S/100 LEUKOCYTES IN BLOOD BY AUTOMATED COUNT 2.0 0.0 - 3.0 04/27 Specimen Type: BLOOD No comment entered. Ordering Provider: RALPH CARDENAS CCA A Report Released Date/Time: Apr 20, 2024 04:11 PM Reporting Lab: [address] [phone] Performing Lab: [place] [phone] [facility] CBC BASOPHILS/ 100 LEUKOCYTES IN BLOOD BY AUTOMATED COUNT 0.3 0.0 - 3.0 04/27 Specimen Type: BLOOD No comment entered. Ordering Provider: RALPH CARDENAS CCA A Report Released Date/Time: Apr 20, 2024 04:11 PM Reporting Lab: [place] [phone] Performing Lab: [place] [phone] [place] [address] CBC LYMPHOCYTE S [#/VOLUME] IN BLOOD BY AUTOMATED COUNT 3.4 10*3/uL 0.8 - 5.0 04/27 Specimen Type: BLOOD No comment entered. Ordering Provider: RALPH CARDENAS CCA A Report Released Date/Time: Apr 20, 2024 04:11 PM Reporting Lab: [address] [phone] Performing Lab: [place] [phone] [place] [address] CBC NEUTROPHIL S [#/VOLUME] IN BLOOD 6.0 10*3/uL 1.9 - 8.6 04/27 Specimen Type: BLOOD No comment entered. Ordering Provider: RALPH CARDENAS CCA A Report Released Date/Time: Apr 20, 2024 04:11 PM Reporting Lab: [address] [phone] Performing Lab: [place] [phone] [facility] CBC BASOPHILS [#/VOLUME] IN BLOOD BY AUTOMATED COUNT 0.0 10*3/uL 0.0 - 0.3 04/27 Specimen Type: BLOOD No comment entered. Ordering Provider: RALPH CARDENAS CCA A Report Released Date/Time: Apr 20, 2024 04:11 PM Reporting Lab: [address] [phone] Performing Lab: [place] [phone] [facility] CBC MONOCYTES [#/VOLUME] IN BLOOD BY AUTOMATED COUNT 0.9 10*3/uL 0.1 - 0.9 04/27 Specimen Type: BLOOD No comment entered. Ordering Provider: RALPH CARDENAS CCA Report Released Date/Time: Apr 20, 2024 04:11 PM Reporting Lab: [place] [phone] Performing Lab: [place] [phone] [place] [address] CBC EOSINOPHIL S [#/VOLUME] IN BLOOD BY AUTOMATED COUNT 0.2 10*3/uL 0.0 - 0.3 04/27 Specimen Type: BLOOD No comment entered. Ordering Provider: RALPH CARDENAS CCA Report Released Date/Time: Apr 20, 2024 04:11 PM Reporting Lab: [place] [phone] Performing Lab: [place] [phone] [place] [address] CBC PLATELET MEAN VOLUME [ENTITIC VOLUME] IN BLOOD BY AUTOMATED COUNT 8.0 fL 7.4 - 11.4 04/27 Specimen Type: BLOOD No comment entered. Ordering Provider: RALPH CARDENAS CCA Report Released Date/Time: Apr 20, 2024 04:11 PM Reporting Lab: [place] [phone] Performing Lab: [place] [phone] LIPID PROFILE CHOLESTERO L [MASS/VOLU ME] IN SERUM OR PLASMA 156 mg/dL <199 - 199 04/27 Specimen Type: PLASMA Comment: DLDLREF RANGE: NEAR OR ABOVE OPTIMAL: 100-129 mg/dL BORDERLINE DLDLHIGH: 130-159 mg/dL HIGH: 160-189 mg/dL VERY HIGH: >=190 TRIG REF RANGE: BORDERLINE HIGH: 150-199 mg/dL HIGH: 200-499 mg/dL TRIG VERY HIGH: >=500 mg/dL CREA eGFR was calculated using the CKD-EPI 2020 equation. CHOL REF RANGE: BORDERLINE HIGH: 200-239 mg/dL HIGH: >=240 mg/dL Ordering Provider: RALPH CARDENAS CCA A Report Released Date/Time: Apr 20, 2024 04:11 PM Reporting Lab: [place] [phone] Performing Lab: [place] [phone] [place] [address] LIPID PROFILE CHOLESTERO L IN LDL [MASS/VOLU ME] IN SERUM OR PLASMA BY DIRECT ASSAY 93 mg/dL <99 - 99 04/27 Specimen Type: PLASMA Comment: DLDLREF RANGE: NEAR OR ABOVE OPTIMAL: 100-129 mg/dL BORDERLINE DLDLHIGH: 130-159 mg/dL HIGH: 160-189 mg/dL VERY HIGH: >=190 TRIG REF RANGE: BORDERLINE HIGH: 150-199 mg/dL HIGH: 200-499 mg/dL TRIG VERY HIGH: >=500 mg/dL CREA eGFR was calculated using the CKD-EPI 2020 equation. CHOL REF RANGE: BORDERLINE HIGH: 200-239 mg/dL HIGH: >=240 mg/dL Ordering Provider: RALPH CARDENAS CCA A Report Released Date/Time: Apr 20, 2024 04:11 PM Reporting Lab: [place] [phone] Performing Lab: [place] [phone] LIPID PROFILE CHOLESTERO L IN HDL [MASS/VOLU ME] IN SERUM OR PLASMA 49 mg/dL 60 04/27 L Specimen Type: PLASMA Comment: DLDLREF RANGE: NEAR OR ABOVE OPTIMAL: 100-129 mg/dL BORDERLINE DLDLHIGH: 130-159 mg/dL HIGH: 160-189 mg/dL VERY HIGH: >=190 TRIG REF RANGE: BORDERLINE HIGH: 150-199 mg/dL HIGH: 200-499 mg/dL TRIG VERY HIGH: >=500 mg/dL CREA eGFR was calculated using the CKD-EPI 2020 equation. CHOL REF RANGE: BORDERLINE HIGH: 200-239 mg/dL HIGH: >=240 mg/dL Ordering Provider: RALPH CARDENAS CCA A Report Released Date/Time: Apr 20, 2024 04:11 PM Reporting Lab: [place] [phone] Performing Lab: [place] [phone] [place] [address] LIPID PROFILE TRIGLYCERI DE [MASS/VOLU ME] IN SERUM OR PLASMA 204 mg/dL <149 - 149 04/27 H Specimen Type: PLASMA Comment: DLDLREF RANGE: NEAR OR ABOVE OPTIMAL: 100-129 mg/dL BORDERLINE DLDLHIGH: 130-159 mg/dL HIGH: 160-189 mg/dL VERY HIGH: >=190 TRIG REF RANGE: BORDERLINE HIGH: 150-199 mg/dL HIGH: 200-499 mg/dL TRIG VERY HIGH: >=500 mg/dL CREA eGFR was calculated using the CKD-EPI 2020 equation. CHOL REF RANGE: BORDERLINE HIGH: 200-239 mg/dL HIGH: >=240 mg/dL Ordering Provider: RALPH CARDENAS CCA A Report Released Date/Time: Apr 20, 2024 04:11 PM Reporting Lab: [place] [phone] Performing Lab: [place] [phone] URINALYS IS SPECIFIC GRAVITY OF URINE 1.019 1.016 - 1.022 04/27 Specimen Type: URINE No comment entered. Ordering Provider: RALPH CARDENAS CCA A Report Released Date/Time: Apr 20, 2024 04:11 PM Reporting Lab: [place] [phone] Performing Lab: [place] [phone] URINALYS IS GLUCOSE [MASS/VOLU ME] IN URINE BY TEST STRIP 200 mg/dL 04/27 H Specimen Type: URINE No comment entered. Ordering Provider: RALPH CARDENAS CCA A Report Released Date/Time: Apr 20, 2024 04:11 PM Reporting Lab: [place] [phone] Performing Lab: [place] [phone] URINALYS IS PROTEIN [MASS/VOLU ME] IN URINE BY TEST STRIP Negative mg/dL 04/27 Specimen Type: URINE No comment entered. Ordering Provider: RALPH CARDENAS CCA A Report Released Date/Time: Apr 20, 2024 04:11 PM Reporting Lab: [place] [phone] Performing Lab: [address] [address] [facility] URINALYS IS PH OF URINE BY TEST STRIP 6.0 5.0 - 8.0 04/27 Specimen Type: URINE No comment entered. Ordering Provider: RALPH CARDENAS CCA A Report Released Date/Time: Apr 20, 2024 04:11 PM Reporting Lab: [address] [address] Performing Lab: [address] [address] [facility] URINALYS IS LEUKOCYTES [#/AREA] IN URINE SEDIMENT BY MICROSCOPY HIGH POWER FIELD 21 /[HPF] - 4 04/27 H Specimen Type: URINE No comment entered. Ordering Provider: RALPH CARDENAS CCA A Report Released Date/Time: Apr 20, 2024 04:11 PM Reporting Lab: [address] [address] Performing Lab: [place] [phone] [place] [address] URINALYS IS EPITHELIAL CELLS.SQUA MOUS [PRESENCE] IN URINE SEDIMENT BY LIGHT MICROSCOPY 1 /[HPF] - 4 04/27 Specimen Type: URINE No comment entered. Ordering Provider: RALPH CARDENAS CCA A Report Released Date/Time: Apr 20, 2024 04:11 PM Reporting Lab: [address] [address] Performing Lab: [place] [phone] [facility] URINALYS IS NITRITE [PRESENCE] IN URINE BY TEST STRIP Negative 04/27 Specimen Type: URINE No comment entered. Ordering Provider: RALPH CARDENAS CCA A Report Released Date/Time: Apr 20, 2024 04:11 PM Reporting Lab: [address] [address] Performing Lab: [address] [address] [facility] URINALYS IS LEUKOCYTE ESTERASE [PRESENCE] IN URINE BY TEST STRIP 25 04/27 Specimen Type: URINE No comment entered. Ordering Provider: RALPH CRADENAS CCA A Report Released Date/Time: Apr 20, 2024 04:11 PM Reporting Lab: [address] [address] Performing Lab: [place] [phone] [facility] URINALYS IS CLARITY OF URINE Turbid 04/27 H Specimen Type: URINE No comment entered. Ordering Provider: RALPH CARDENAS CCA A Report Released Date/Time: Apr 20, 2024 04:11 PM Reporting Lab: [place] [phone] Performing Lab: [place] [phone] [facility] URINALYS IS BILIRUBIN. TOTAL [MASS/VOLU ME] IN URINE BY TEST STRIP Negative mg/dL - 0.4 04/27 Specimen Type: URINE No comment entered. Ordering Provider: RALPH CARDENAS CCA A Report Released Date/Time: Apr 20, 2024 04:11 PM Reporting Lab: [place] [phone] Performing Lab: [place] [phone] URINALYS IS HEMOGLOBIN [PRESENCE] IN URINE BY TEST STRIP Negative mg/dL <0.05 - 0.05 04/27 Specimen Type: URINE No comment entered. Ordering Provider: RALPH CARDENAS CCA A Report Released Date/Time: Apr 20, 2024 04:11 PM Reporting Lab: [place] [phone] Performing Lab: [place] [phone] [facility] URINALYS IS UROBILINOG EN [MASS/VOLU ME] IN URINE Negative mg/dL - 1 04/27 Specimen Type: URINE No comment entered. Ordering Provider: RALPH CARDENAS CCA A Report Released Date/Time: Apr 20, 2024 04:11 PM Reporting Lab: [place] [phone] Performing Lab: [place] [phone] URINALYS IS KETONES [MASS/VOLU ME] IN URINE BY TEST STRIP Negative mg/dL - 9 04/27 Specimen Type: URINE No comment entered. Ordering Provider: RALPH CARDENAS CCA A Report Released Date/Time: Apr 20, 2024 04:11 PM Reporting Lab: [place] [phone] Performing Lab: [place] [id number] [facility] URINALYS IS COLOR OF URINE Yellow [none] 04/27 Specimen Type: URINE No comment entered. Ordering Provider: RALPH CARDENAS CCA Report Released Date/Time: Apr 20, 2024 04:11 PM Reporting Lab: [place] [phone] Performing Lab: [place] [id number] [facility] COMPREH NSIVE METABOLI C PANEL ALBUMIN [MASS/VOLU ME] IN SERUM OR PLASMA 4.1 g/dL 3.2 - 4.6 04/27 Specimen Type: PLASMA Comment: DLDLREF RANGE: NEAR OR ABOVE OPTIMAL: 100-129 mg/dL BORDERLINE DLDLHIGH: 130-159 mg/dL HIGH: 160-189 mg/dL VERY HIGH: >=190 TRIG REF RANGE: BORDERLINE HIGH: 150-199 mg/dL HIGH: 200-499 mg/dL TRIG VERY HIGH: >=500 mg/dL CREA eGFR was calculated using the CKD-EPI 2020 equation. CHOL REF RANGE: BORDERLINE HIGH: 200-239 mg/dL HIGH: >=240 mg/dL Ordering Provider: RALPH CAREDNAS CCA Report Released Date/Time: Apr 20, 2024 04:11 PM Reporting Lab: [place] [phone] Performing Lab: [place] [phone] [place] [address] COMPREHE NSIVE METABOLI C PANEL ALKALINE PHOSPHATAS E [ENZYMATIC ACTIVITY/V OLUME] IN SERUM OR PLASMA 89 U/L 40 - 150 04/27 Specimen Type: PLASMA Comment: DLDLREF RANGE: NEAR OR ABOVE OPTIMAL: 100-129 mg/dL BORDERLINE DLDLHIGH: 130-159 mg/dL HIGH: 160-189 mg/dL VERY HIGH: >=190 TRIG REF RANGE: BORDERLINE HIGH: 150-199 mg/dL HIGH: 200-499 mg/dL TRIG VERY HIGH: >=500 mg/dL CREA eGFR was calculated using the CKD-EPI 2020 equation. CHOL REF RANGE: BORDERLINE HIGH: 200-239 mg/dL HIGH: >=240 mg/dL Ordering Provider: RALPH CARDENAS CCA A Report Released Date/Time: Apr 20, 2024 04:11 PM Reporting Lab: [place] [phone] Performing Lab: [address] [phone] [facility] NSIVE METABOLI C PANEL ALANINE AMINOTRANS FERASE [ENZYMATIC ACTIVITY/V OLUME] IN SERUM OR PLASMA 33 U/L <55 - 55 04/27 Specimen Type: PLASMA Comment: DLDLREF RANGE: NEAR OR ABOVE OPTIMAL: 100-129 mg/dL BORDERLINE DLDLHIGH: 130-159 mg/dL HIGH: 160-189 mg/dL VERY HIGH: >=190 TRIG REF RANGE: BORDERLINE HIGH: 150-199 mg/dL HIGH: 200-499 mg/dL TRIG VERY HIGH: >=500 mg/dL CREA eGFR was calculated using the CKD-EPI 2020 equation. CHOL REF RANGE: BORDERLINE HIGH: 200-239 mg/dL HIGH: >=240 mg/dL Ordering Provider: RALPH CARDENAS CCA A Report Released Date/Time: Apr 20, 2024 04:11 PM Reporting Lab: [address] [phone] Performing Lab: [place] [phone] [place] [address] NSIVE METABOLI C PANEL ASPARTATE AMINOTRANS FERASE [ENZYMATIC ACTIVITY/V OLUME] IN SERUM OR PLASMA 24 U/L 5 - 34 04/27 Specimen Type: PLASMA Comment: DLDLREF RANGE: NEAR OR ABOVE OPTIMAL: 100-129 mg/dL BORDERLINE DLDLHIGH: 130-159 mg/dL HIGH: 160-189 mg/dL VERY HIGH: >=190 TRIG REF RANGE: BORDERLINE HIGH: 150-199 mg/dL HIGH: 200-499 mg/dL TRIG VERY HIGH: >=500 mg/dL CREA eGFR was calculated using the CKD-EPI 2020 equation. CHOL REF RANGE: BORDERLINE HIGH: 200-239 mg/dL HIGH: >=240 mg/dL Ordering Provider: RALPH CARDENAS CCA A Report Released Date/Time: Apr 20, 2024 04:11 PM Reporting Lab: [place] [phone] Performing Lab: [place] [phone] [facility] COMPREHE NSIVE METABOLI C PANEL UREA NITROGEN [MASS/VOLU ME] IN SERUM OR PLASMA 20 mg/dL 8.4 - 25.7 04/27 Specimen Type: PLASMA Comment: DLDLREF RANGE: NEAR OR ABOVE OPTIMAL: 100-129 mg/dL BORDERLINE DLDLHIGH: 130-159 mg/dL HIGH: 160-189 mg/dL VERY HIGH: >=190 TRIG REF RANGE: BORDERLINE HIGH: 150-199 mg/dL HIGH: 200-499 mg/dL TRIG VERY HIGH: >=500 mg/dL CREA eGFR was calculated using the CKD-EPI 2020 equation. CHOL REF RANGE: BORDERLINE HIGH: 200-239 mg/dL HIGH: >=240 mg/dL Ordering Provider: RALPH CARDENAS CCA Report Released Date/Time: Apr 20, 2024 04:11 PM Reporting Lab: [place] [phone] Performing Lab: [place] [phone] [facility] COMPREHE NSIVE METABOLI C PANEL CALCIUM [MASS/VOLU ME] IN SERUM OR PLASMA 9.1 mg/dL 8.8 - 10.0 04/27 Specimen Type: PLASMA Comment: DLDLREF RANGE: NEAR OR ABOVE OPTIMAL: 100-129 mg/dL BORDERLINE DLDLHIGH: 130-159 mg/dL HIGH: 160-189 mg/dL VERY HIGH: >=190 TRIG REF RANGE: BORDERLINE HIGH: 150-199 mg/dL HIGH: 200-499 mg/dL TRIG VERY HIGH: >=500 mg/dL CREA eGFR was calculated using the CKD-EPI 2020 equation. CHOL REF RANGE: BORDERLINE HIGH: 200-239 mg/dL HIGH: >=240 mg/dL Ordering Provider: RALPH CARDENAS CCA Report Released Date/Time: Apr 20, 2024 04:11 PM Reporting Lab: [place] [phone] Performing Lab: [place] [phone] [facility] COMPREHE NSIVE METABOLI C PANEL CREATININE [MASS/VOLU ME] IN SERUM OR PLASMA 1.2 mg/dL 0.72 - 1.25 04/27 Specimen Type: PLASMA Comment: DLDLREF RANGE: NEAR OR ABOVE OPTIMAL: 100-129 mg/dL BORDERLINE DLDLHIGH: 130-159 mg/dL HIGH: 160-189 mg/dL VERY HIGH: >=190 TRIG REF RANGE: BORDERLINE HIGH: 150-199 mg/dL HIGH: 200-499 mg/dL TRIG VERY HIGH: >=500 mg/dL CREA eGFR was calculated using the CKD-EPI 2020 equation. CHOL REF RANGE: BORDERLINE HIGH: 200-239 mg/dL HIGH: >=240 mg/dL Ordering Provider: RALPH CARDENAS CCA A Report Released Date/Time: Apr 20, 2024 04:11 PM Reporting Lab: [place] [phone] Performing Lab: [place] [phone] [place] [address] COMPREHE NSIVE METABOLI C PANEL CARBON DIOXIDE, TOTAL [MOLES/VOL UME] IN SERUM OR PLASMA 20 mmol/L 23 - 31 04/27 L Specimen Type: PLASMA Comment: DLDLREF RANGE: NEAR OR ABOVE OPTIMAL: 100-129 mg/dL BORDERLINE DLDLHIGH: 130-159 mg/dL HIGH: 160-189 mg/dL VERY HIGH: >=190 TRIG REF RANGE: BORDERLINE HIGH: 150-199 mg/dL HIGH: 200-499 mg/dL TRIG VERY HIGH: >=500 mg/dL CREA eGFR was calculated using the CKD-EPI 2020 equation. CHOL REF RANGE: BORDERLINE HIGH: 200-239 mg/dL HIGH: >=240 mg/dL Ordering Provider: RALPH CARDENAS CCA A Report Released Date/Time: Apr 20, 2024 04:11 PM Reporting Lab: [place] [phone] Performing Lab: [place] [phone] [facility] COMPREHE NSIVE METABOLI C PANEL GLUCOSE [MASS/VOLU ME] IN SERUM OR PLASMA 198 mg/dL 82 - 115 04/27 H Specimen Type: PLASMA Comment: DLDLREF RANGE: NEAR OR ABOVE OPTIMAL: 100-129 mg/dL BORDERLINE DLDLHIGH: 130-159 mg/dL HIGH: 160-189 mg/dL VERY HIGH: >=190 TRIG REF RANGE: BORDERLINE HIGH: 150-199 mg/dL HIGH: 200-499 mg/dL TRIG VERY HIGH: >=500 mg/dL CREA eGFR was calculated using the CKD-EPI 2020 equation. CHOL REF RANGE: BORDERLINE HIGH: 200-239 mg/dL HIGH: >=240 mg/dL Ordering Provider: RALPH CARDENAS CCA Report Released Date/Time: Apr 20, 2024 04:11 PM Reporting Lab: [place] [phone] Performing Lab: [place] [phone] [place] [address] COMPREHE NSIVE METABOLI C PANEL PROTEIN [MASS/VOLU ME] IN SERUM OR PLASMA 7.3 g/dL 6.4 - 8.3 04/27 Specimen Type: PLASMA Comment: DLDLREF RANGE: NEAR OR ABOVE OPTIMAL: 100-129 mg/dL BORDERLINE DLDLHIGH: 130-159 mg/dL HIGH: 160-189 mg/dL VERY HIGH: >=190 TRIG REF RANGE: BORDERLINE HIGH: 150-199 mg/dL HIGH: 200-499 mg/dL TRIG VERY HIGH: >=500 mg/dL CREA eGFR was calculated using the CKD-EPI 2020 equation. CHOL REF RANGE: BORDERLINE HIGH: 200-239 mg/dL HIGH: >=240 mg/dL Ordering Provider: RALPH CARDENAS CCA Report Released Date/Time: Apr 20, 2024 04:11 PM Reporting Lab: [place] [phone] Performing Lab: [place] [phone] [place] [address] COMPREHE NSIVE METABOLI C PANEL SODIUM [MOLES/VOL UME] IN SERUM OR PLASMA 141 mmol/L 136 - 145 04/27 Specimen Type: PLASMA Comment: DLDLREF RANGE: NEAR OR ABOVE OPTIMAL: 100-129 mg/dL BORDERLINE DLDLHIGH: 130-159 mg/dL HIGH: 160-189 mg/dL VERY HIGH: >=190 TRIG REF RANGE: BORDERLINE HIGH: 150-199 mg/dL HIGH: 200-499 mg/dL TRIG VERY HIGH: >=500 mg/dL CREA eGFR was calculated using the CKD-EPI 2020 equation. CHOL REF RANGE: BORDERLINE HIGH: 200-239 mg/dL HIGH: >=240 mg/dL Ordering Provider: RALPH CARDENAS CCA Report Released Date/Time: Apr 20, 2024 04:11 PM Reporting Lab: [place] [phone] Performing Lab: [place] [phone] [facility] COMPREHE NSIVE METABOLI C PANEL CHLORIDE [MOLES/VOL UME] IN SERUM OR PLASMA 111 mmol/L 98 - 107 04/27 H Specimen Type: PLASMA Comment: DLDLREF RANGE: NEAR OR ABOVE OPTIMAL: 100-129 mg/dL BORDERLINE DLDLHIGH: 130-159 mg/dL HIGH: 160-189 mg/dL VERY HIGH: >=190 TRIG REF RANGE: BORDERLINE HIGH: 150-199 mg/dL HIGH: 200-499 mg/dL TRIG VERY HIGH: >=500 mg/dL CREA eGFR was calculated using the CKD-EPI 2020 equation. CHOL REF RANGE: BORDERLINE HIGH: 200-239 mg/dL HIGH: >=240 mg/dL Ordering Provider: RALPH CARDENAS CCA Report Released Date/Time: Apr 20, 2024 04:11 PM Reporting Lab: [place] [phone] Performing Lab: [place] [phone] [facility] COMPREHE NSIVE METABOLI C PANEL BILIRUBIN. TOTAL [MASS/VOLU ME] IN SERUM OR PLASMA 0.5 mg/dL 0.2 - 1.2 04/27 Specimen Type: PLASMA Comment: DLDLREF RANGE: NEAR OR ABOVE OPTIMAL: 100-129 mg/dL BORDERLINE DLDLHIGH: 130-159 mg/dL HIGH: 160-189 mg/dL VERY HIGH: >=190 TRIG REF RANGE: BORDERLINE HIGH: 150-199 mg/dL HIGH: 200-499 mg/dL TRIG VERY HIGH: >=500 mg/dL CREA eGFR was calculated using the CKD-EPI 2020 equation. CHOL REF RANGE: BORDERLINE HIGH: 200-239 mg/dL HIGH: >=240 mg/dL Ordering Provider: RALPH CARDENAS CCA Report Released Date/Time: Apr 20, 2024 04:11 PM Reporting Lab: [address] [phone] Performing Lab: [place] [phone] [facility] COMPREHE NSIVE METABOLI C PANEL POTASSIUM [MOLES/VOL UME] IN SERUM OR PLASMA 4.4 mmol/L 3.5 - 5.1 04/27 Specimen Type: PLASMA Comment: DLDLREF RANGE: NEAR OR ABOVE OPTIMAL: 100-129 mg/dL BORDERLINE DLDLHIGH: 130-159 mg/dL HIGH: 160-189 mg/dL VERY HIGH: >=190 TRIG REF RANGE: BORDERLINE HIGH: 150-199 mg/dL HIGH: 200-499 mg/dL TRIG VERY HIGH: >=500 mg/dL CREA eGFR was calculated using the CKD-EPI 2020 equation. CHOL REF RANGE: BORDERLINE HIGH: 200-239 mg/dL HIGH: >=240 mg/dL Ordering Provider: RALPH CARDENAS CCA Report Released Date/Time: Apr 20, 2024 04:11 PM Reporting Lab: [place] [phone] Performing Lab: [place] [phone] [facility] COMPREHE NSIVE METABOLI C PANEL ANION GAP IN SERUM OR PLASMA 14.4 mmol/L - 04/27 Specimen Type: PLASMA Comment: DLDLREF RANGE: NEAR OR ABOVE OPTIMAL: 100-129 mg/dL BORDERLINE DLDLHIGH: 130-159 mg/dL HIGH: 160-189 mg/dL VERY HIGH: >=190 TRIG REF RANGE: BORDERLINE HIGH: 150-199 mg/dL HIGH: 200-499 mg/dL TRIG VERY HIGH: >=500 mg/dL CREA eGFR was calculated using the CKD-EPI 2020 equation. CHOL REF RANGE: BORDERLINE HIGH: 200-239 mg/dL HIGH: >=240 mg/dL Ordering Provider: RALPH CARDENAS CCA Report Released Date/Time: Apr 20, 2024 04:11 PM Reporting Lab: [place] [phone] Performing Lab: [place] [phone] [facility] COMPREHE NSIVE METABOLI C PANEL GLOMERULAR FILTRATION RATE/1.73 SQ M.PREDICTE D [VOLUME RATE/AREA] IN SERUM, PLASMA OR BLOOD BY CREATININE -BASED FORMULA (CKD-EPI 2020) 59.0 mL/min 04/27 Specimen Type: PLASMA Comment: DLDLREF RANGE: NEAR OR ABOVE OPTIMAL: 100-129 mg/dL BORDERLINE DLDLHIGH: 130-159 mg/dL HIGH: 160-189 mg/dL VERY HIGH: >=190 TRIG REF RANGE: BORDERLINE HIGH: 150-199 mg/dL HIGH: 200-499 mg/dL TRIG VERY HIGH: >=500 mg/dL CREA eGFR was calculated using the CKD-EPI 2020 equation. CHOL REF RANGE: BORDERLINE HIGH: 200-239 mg/dL HIGH: >=240 mg/dL Ordering Provider: RALPH CARDENAS CCA Report Released Date/Time: Apr 20, 2024 04:11 PM Reporting Lab: [facility] [address] [facility] [phone] Performing Lab: [facility] [address] [facility] [phone] [facility] Vital Signs Combined list of inpatient and outpatient Vital Signs from Department of [facility] and [facility], ranging from 12 months to all on record, depending upon the facility. Vital Sign Value Date Comments Source PAIN 0 12/05/2024 14:45:00 [facility] Encounters Combined list of: 1) Encounters from [facility] facilities going backup to the last 18 months, not all [place] inpatient encounters are included; 2) Encounters from the Department of [facility] facilities going backup to 280 months. 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 KALA Hendrix NNIFER 08/22 [facility] [place] [id number] Diagnos is: ICD-10- CM 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 KALA HendrixIFER 11/28 [facility] OFF[facility] O/P EST HI 40 MIN [id number] Diagnos is: ICD-10- CM 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 ropathy KALA WELCH NNIFER 02/27 [facility] Outpatient Encounter [id number] 03/02 [facility] Out[facility] Encounter [id number] 06/05 [facility] OFF[facility] O/P EST LOW 20 MIN [id number] Diagnos is: ICD-10- CM 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 ropathy KALA WELCH NNIFER 06/07 [facility] Outpatient Encounter [id number] 06/11 [facility] [place] Encounter [id number] 06/15 [facility] Outpatient Encounter [id number] Diagnos is: ICD-10- CM Y93.9 Activit y, unspeci fied ROLL,MARJO SCOTT K 08/17 [facility] Out[facility] Encounter [id number] 09/06 [facility] Out[facility] Encounter [id number] Diagnos is: ICD-10- CM Y93.9 Activit y, unspeci fied ROLL,MARJO SCOTT K 09/17 [facility] Out[facility] Encounter [id number] 11/22 [facility] ORTHOTIC MGMT&TRAIN G 1ST ENC [id number] Diagnos is: ICD-10- CM E11.9 Type 2 diabete s mellitu s without complic ations YORKO-O'BR IEN,GUY VALVERDEE M 11/30 [facility] Social History Combined list of available smoking, tobacco, and other social history from Department of Defense and Veterans Affairs facilities. Social History Type Response Date Comment Sourc e Tobacco smoking status NHIS [facility] FORMER USER 04/26/2023 [facility] History of tobacco use VA-TOBACCO QUIT 1 5 YRS OR MORE 04/26/2023 [facility] History of tobacco use VA-TOBACCO QUIT 1 5 YRS OR MORE 04/16/2022 [facility] History of tobacco use VA-TOBACCO QUIT 1 5 YRS OR MORE 04/16/2021 [facility] History of tobacco use VA-TOBACCO NEVER USED 11/28/2018 [facility] History of tobacco use VA-TOBACCO FORMER USER 06/13/2018 [facility] History of tobacco use QUIT TOBACCO >7 YEARS AGO 6 [facility] Plan of Care List of future care activities from Department of Veterans Affairs facilities. Additional future care activities may be listed in the Assessment and Plan section. Date/Time Care Activity Care Activity Detail Facili ty 01/18/2025 AMBULATORY - NONE AMBULATORY - NONE [facility] Advance Directives List of completed, amended, or rescinded Advance Directives on record at Department of Veterans Affairs facilities. An actual copy of the Directive is not included. Date Advance Directive Provider Source 07/20/2022 ADVANCE DIRECTIVE DISCUSSION LELIA COULTER
[2025-01-10] VITALS (16 sets, daily range): BP systolic 63–96; BP diastolic 37–52; PULSE 94–130; TEMP 37.4–39.1; O2SAT 89–96; BMI 27.1
--- NOTE | 2025-01-10 01:25 | ECG_ITS ---
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
[2025-01-10] MEDS: 0.9 % SODIUM CHLORIDE 1,000 ML 999 ML IV (01:30)
--- NOTE | 2025-01-10 01:32 | ED.AMS1 ---
HPI - Altered Mental Status General Chief Complaint: Fever Stated Complaint: OTHER Time Seen by Provider: 01/10/25 01:25 Source comment: EMS and [facility] staff Mode of arrival: ambulance History of Present Illness HPI narrative: This 84-year-old male is transferred from the [facility] where he currently resides for evaluation of fever, altered mental status and hypoxia. According to the jail report he has recently had several falls. He is typically awake and alert and oriented but has been disoriented today. He was found to have a urinary tract infection recently and today found to have a fever. He was placed on supplemental oxygen at the jail and a chest x-ray was ordered due to his hypoxia but the results of the x-ray are not available so far. Upon arrival the patient is awake and able to speak his name otherwise appears weak and ill. He is febrile, tachycardic and hypoxic. Related Data Home Medications ?Medication ?Instructions ?Recorded ?Confirmed atorvastatin 40 mg tablet 40 mg PO DAILY 09/11/24 01/10/25 carvedilol 25 mg tablet 25 mg PO BID 09/11/24 01/10/25 clopidogrel 75 mg tablet 75 mg PO DAILY 09/11/24 01/10/25 dutasteride 0.5 mg capsule 0.5 mg PO DAILY 09/11/24 01/10/25 glimepiride 4 mg tablet 8 mg PO DAILY 09/11/24 01/10/25 lactulose 10 gram/15 mL oral 30 ml PO BID 09/11/24 01/10/25 solution (Constulose) levothyroxine 75 mcg tablet 75 mcg PO DAILY 09/11/24 01/10/25 pantoprazole 40 mg tablet,delayed 40 mg PO DAILY 09/11/24 01/10/25 release sitagliptin phosphate 100 mg 100 mg PO DAILY 09/11/24 01/10/25 tablet (Januvia) tamsulosin 0.4 mg capsule 0.8 mg PO DAILY 09/11/24 01/10/25 escitalopram oxalate 10 mg tablet mg 01/10/25 loperamide 2 mg capsule mg 01/10/25 Allergies Allergy/AdvReac Type Severity Reaction Status Date / Time No Known Drug Allergies Allergy Verified 01/10/25 01:29 Review of Systems ROS Status of ROS 10 or more systems reviewed and unremarkable except as noted in history and below [facility] Medical History (Updated 01/10/25 @ 05:39 by Nichelle Melgar MD) Diabetes mellitus ?E11.9 - Type 2 diabetes mellitus without complications (ICD-10) Hypertension ?I10 - Essential (primary) hypertension (ICD-10) Acute UTI ?N39.0 - Urinary tract infection, site not specified (ICD-10) Hospital admission due to social situation ?Z60.9 - Problem related to social environment, unspecified (ICD-10) Hyperglycemia ?R73.9 - Hyperglycemia, unspecified (ICD-10) Family History (Updated 09/12/24 @ 00:52 by Veronica Luna) Father Family history of CHF (congestive heart failure) Family history of hypertension Family history of myocardial infarction Daughter Family history of cancer Aunt Family history of cancer Social History (Updated 09/12/24 @ 00:52 by Veronica Luna) Within the past year, how often did you have a drink containing alcohol: never Score interpretation: A score less than 4 is consistent with normal alcohol consumption. Smoking status: Former smoker Non-prescribed substance use: denies use Previous occupational history: retired Highest level of school completed/degree received: some college, no degree Are you now , , , , never or living with a partner: In a typical week, how many times do you talk on the telephone with family, friends, or neighbors: 3 or more times per week How often do you attend mandaeism or sikh services: 4 or more times per year Little interest or pleasure in doing things: not at all Feeling down, depressed, or hopeless: not at all Feel stressed/tense/nervous/anxious/difficulty sleeping: not at all Do you think of yourself as: straight/heterosexual Gender Identity: male Exam Narrative Exam Narrative: Vital signs and Nursing Notes reviewed: Is febrile, tachycardic, hypoxic and tachypneic General: Ill-appearing elderly male, he is able to speak his name and follow simple commands, mild respiratory difficulty noted HEENT: Normocephalic atraumatic, mucous membranes are dry with a dark shrunken tongue Neck: Supple, no meningeal signs, no anterior or posterior cervical lymphadenopathy Chest: Patient is tachypneic with coarse rhonchi and bibasilar rales, mild accessory muscle use noted CVS: Regular rate and rhythm S1-S2, tachycardic in the 130s upon arrival no murmurs rubs or gallops, pulses are thready ABD: Soft, nondistended, nontender, no rebound guarding or rigidity, bowel sounds are normal, no pulsatile masses appreciated : No sign of necrotizing fasciitis, foul smell of urine and blood in depends Extremities: Moving all extremities, no lower extremity tenderness or swelling noted, negative Homans' sign, pulses are brisk and equal bilaterally Skin: Pale, dry Neuro: No gross focal deficits, patient too weak to follow commands but does not have a facial droop and speech is clear Constitutional Vital Signs, click to edit/add: Last Vital Signs Temp 101.9 F H 01/10/25 05:10 Pulse 105 H 01/10/25 05:19 Resp 43 H 01/10/25 05:19 BP 90/40 L 01/10/25 08:25 Pulse Ox 93 L 01/10/25 05:19 O2 Del Method Nonrebreather 01/10/25 01:24 O2 Flow Rate 4 01/10/25 05:19 Course Vital Signs Vital signs: Vital Signs Temperature 102.4 F H 01/10/25 01:24 Pulse Rate 125 H 01/10/25 01:24 Respiratory Rate 57 H 01/10/25 01:24 Blood Pressure 96/52 01/10/25 01:24 Pulse Oximetry 90 L 01/10/25 01:24 Oxygen Delivery Method Nonrebreather 01/10/25 01:24 Oxygen Delivery Flow Rate 15 01/10/25 01:24 Temperature 101.9 F H 01/10/25 05:10 Pulse Rate 105 H 01/10/25 05:19 Respiratory Rate 43 H 01/10/25 05:19 Blood Pressure 90/40 L 01/10/25 08:25 Pulse Oximetry 93 L 01/10/25 05:19 Oxygen Delivery Method Nonrebreather 01/10/25 01:24 Oxygen Delivery Flow Rate 4 01/10/25 05:19 MDM - Altered Mental Status MDM Narrative Medical decision making narrative: This 84-year-old male who is currently in an extended care facility is transferred from the extended care facility for evaluation of altered mental status with fever and hypoxia. The patient apparently recently had a fall. He is typically alert and oriented and he was found to be confused and febrile at the jail before being transferred to the ER. He was placed on supplemental oxygen. Upon arrival he was febrile, tachycardic, tachypneic and hypotensive. Septic protocol was instituted. EKG is a pattern of tachycardia with interventricular conduction block. His mucous membranes are dry, he had blood in his brief. He has coarse breath sounds with bibasilar rales. An IV was placed and he was given IV fluids, rectal Tylenol, oral care was given. His white count is normal at 7.7 with a hemoglobin of 10. He has metabolic acidosis with a sodium of 138. Potassium 3.6, chloride of 108, CO2 of 10.3, BUN is markedly elevated at 76 with a creatinine of 3.75. His glucose is elevated at 368. Lactic acid is also markedly elevated at 9.4. Troponin is elevated at 166.7. BNP is elevated at 9251. Urine is positive for blood. 2 sets of blood cultures are pending at this time. The patient's clinical status improved after IV fluids and Tylenol. He was given IV Rocephin for the presumptive UTI. CT scan of the brain and noncontrast CT scan of the chest abdomen pelvis was ordered as we do not know the exact etiology of the patient's fever. A full 30 cc/kg of IV fluids was withheld due to the elevated troponin and BNP. He was given 6 units of IV insulin for the hyperglycemia. He presented with a nonrebreather which was removed after he was settled in and his pulse ox has remained greater than 92%. COVID 19 is negative. I reviewed the CT scan of the patient's brain as well as his chest abdomen and pelvis. It does appear that he has some degree of urinary retention and a Blankenship catheter was ordered. Blankenship catheter was placed by the nursing staff and drained a large volume of cloudy, thick, bloody urine. Patient's mentation is improving. He is able to speak and states he is feeling somewhat better. He admits that he has not been eating or drinking because I have not been hungry or thirsty. ABG was ordered but unable to be obtained. Despite being IV fluids he remains hypotensive although his pulses improving at the time of dictation is 104. Levophed was ordered to support his blood pressure. I was able to contact his Grand daughter, Hillary Mccullough [phone]. She states that she and her brother are currently working on obtaining guardianship as the patient does not have a power of sports attorney or healthcare proxy at this time. I explained the gravity of the situation and the critical nature of his illness and she will come to the emergency department this morning. In the meantime I contacted the hospitalist at [facility] to initiate a transfer. His condition is continuing to deteriorate at this time despite fluids and pressors. His breathing has become shallow and erratic. His pulse is also erratic. His mentation is also declining. Repeat labs were ordered. Troponin went from 166.7-2 23. Lactic acid is unchanged at 9.4. His creatinine is now 4.11 The case was discussed with the hospitalist. The patient is excepted for transfer if his condition improved to the point that he can be transferred unless his granddaughter is in agreement with changing his CODE STATUS. CT scan of the head shows no acute intracranial hemorrhage or extra-axial fluid collection. There is no CT findings for acute territorial infarct. CT scan of the abdomen pelvis showed thickened urinary bladder wall suggesting cystitis with right aspect of the urinary bladder wall asymmetrically thickened and an underlying malignant process not excluded. Bilateral hydronephrosis. A 6 mm calculus in the central aspect of the prostate gland could be within the prostatic urethra resulting in obstruction. CT scan of the chest shows coronary artery calcifications with a normal pericardium. Sclerotic aorta. Patient is status post aortic valve replacement with small amount of fluid or debris in the distal esophagus. There was dependent subsegmental bibasilar atelectasis, central airways are patent. Normal pleura, normal lymph nodes, no chest wall or musculoskeletal abnormality with no lower neck abnormality noted. Prior to the patient being transferred his grandchildren, next of kin came to the emergency department. I did call them earlier in my shift. We had a lengthy discussion about the critical nature of his illness. They state that this is an abrupt change in the last week he was doing well and wanted to go to the fair. They state that he did not end up going to the fair because he started having some abdominal problems and diarrhea. They state that he often gets diarrhea which is not unusual for him. They were aware that he had had a fall at the jail recently but had not seen him in about 1 week. The family members were taken to the patient's bedside. His CODE STATUS was discussed at length with the grandchildren who appeared to understand the critical nature of his illness at this time and his CODE STATUS was changed to DNR [facility] arrest. This paperwork was filled out by myself prior to him being transferred to [facility]. Medical Records Attestation: I reviewed the patient's medical records. Medical records narrative: Patient had a normal BUN and creatinine in August 2024 Lab Data Attestation: I reviewed the patient's lab results. Labs: Lab Results 01/10/25 01/10/25 01/10/25 Range/Units 01:30 01:55 01:58 WBC 7.7 (4.0-11.0) 10^3/uL RBC 3.39 L (4.70-6.10) 10^6/uL Hgb 10.0 L (14.0-18.0) g/dL Hct 30.6 L (42.0-54.0) % MCV 90.3 (80.0-94.0) fL MCH 29.5 (25.9-34.0) pg MCHC 32.7 (29.9-35.2) g/dL RDW 14.5 (11.0-15.0) % Plt Count 210 (150-450) 10^3/uL MPV 10.2 (9.5-13.5) fL Seg Neuts % (Manual) 92.0 H (43.0-75.0) Lymphocytes % (Manual) 6.0 L (20.5-60.0) % Monocytes % (Manual) 2.0 (1.7-12.0) % Eosinophils % (Manual) 0.0 L (0.9-7.0) % Basophils % (Manual) 0.0 L (0.2-2.0) % Neutrophils # (Manual) 7.08 H (1.4-6.5) 10^3/uL Lymphocytes # (Manual) 0.46 L (1.20-3.80) 10^3/uL Monocytes # (Manual) 0.15 L (0.30-0.80) 10^3/uL Eosinophils # (Manual) 0.00 (0.00-0.70) 10^3/uL Basophils # (Manual) 0.00 (0.00-0.10) 10^3/uL Toxic Granulation 1+ PT 12.4 H (9.0-11.6) sec INR 1.19 Sodium 138 (136-145) mmol/L Potassium 3.6 (3.5-5.1) mmol/L Chloride 108 H (98-107) mmol/L Carbon Dioxide 10.3 L (21.0-32.0) mmol/L Anion Gap 23.3 BUN 76.0 H* (7.0-18.0) mg/dL Creatinine 3.75 H (0.70-1.30) mg/dL Est GFR ( Amer) 19 L (>=60 mL/min/1.73m^2) Est GFR (Non-Af Amer) 15 L (>=60 mL/min/1.73m^2) BUN/Creatinine Ratio 20.3 Glucose 368 H (74-106) mg/dL Lactate 9.4 H* (0.4-2.0) mmol/L Calcium 8.5 (8.5-10.1) mg/dL Magnesium 1.6 L (1.8-2.4) mg/dL Total Bilirubin 0.9 (0.2-1.0) mg/dL AST 20 (15-37) U/L ALT 36 (16-63) U/L Alkaline Phosphatase 502 H (46-116) U/L Troponin I High Sens 166.7 H* (4.0-76.1) pg/mL NT-Pro-B Natriuret Pep 9251.0 H* (<=1800.0) pg/mL Total Protein 6.7 (6.4-8.2) g/dL Albumin 1.9 L (3.4-5.0) g/dL Globulin 4.8 g/dL Albumin/Globulin Ratio 0.4 Urine Color (YELLOW) Urine Clarity (CLEAR) Urine pH (5.0-9.0) Ur Specific [place] (1.005-1.025) Urine Protein (NEG/TRACE) mg/dL Urine Glucose (UA) (NEGATIVE) mg/dL Urine Ketones (NEGATIVE) mg/dL Urine Occult Blood (NEGATIVE) Urine Nitrite (NEGATIVE) Urine Bilirubin (NEGATIVE) Urine Urobilinogen (0.2-1.0) EU/dL Ur Leukocyte Esterase (NEGATIVE) Urine RBC (0-2) #/HPF Urine WBC (NONE SEEN) #/HPF Ur Squamous Epith Cells (NONE/RARE) #/LPF Urine Crystals (None Seen) #/HPF Urine Bacteria (NONE SEEN) #/HPF Urine Casts (NONE SEEN) #/LPF Urine Mucus (NONE SEEN) Ur Culture Indicated? Specimen Source Blood A.calcoaceticus-baumannii cmplx PCR Not detected (NOT DETECTE) Bacteroides fragilis Not detected (NOT DETECTE) Kaylah albicans (PCR) Not detected (NOT DETECTE) Kaylah auris (PCR) Not detected (NOT DETECTE) C. glabrata (PCR) Not detected (NOT DETECTE) C. krusei (PCR) Not detected (NOT DETECTE) C. parapsilosis (PCR) Not detected (NOT DETECTE) C. tropicalis (PCR) Not detected (NOT DETECTE) C. neoform/gattii (PCR) Not detected (NOT DETECTE) Enterobacterales (PCR) Detected A* (NOT DETECTE) E. cloacae complex PCR Not detected (NOT DETECTE) Enterococc faecalis PCR Not detected (NOT DETECTE) Enterococc faecium PCR Not detected (NOT DETECTE) E. coli (PCR) Not detected (NOT DETECTE) H. influenzae (PCR) Not detected (NOT DETECTE) Klebsiella aerogenes (PCR) Not detected (NOT DETECTE) Klebsiella oxytoca PCR Not detected (NOT DETECTE) K. pneumoniae group (PCR) Not detected (NOT DETECTE) List. monocytogenes PCR Not detected (NOT DETECTE) N. meningitidis (PCR) Not detected (NOT DETECTE) Proteus spp. (copies/mL) Detected A* (NOT DETECTE) Salmonella spp. (PCR) Not detected (NOT DETECTE) SARS-CoV-2 Ag (CV2AG) Negative (NEGATIVE) Serratia marcescens PCR Not detected (NOT DETECTE) Staphylococcus sp PCR Not detected (NOT DETECTE) Staph aureus (PCR) Not detected (NOT DETECTE) mecA/C & MREJ Resist Gene Not applicable (NOT DETECTE) mecA/C-Methicil Resis Gene Not applicable (NOT DETECTE) mcr-1 Colistin Res Gene PCR Not applicable (NOT DETECTE) Staph epidermidis (PCR) Not detected (NOT DETECTE) Staph lugdunensis (TEM-PCR) Not detected (NOT DETECTE) S. maltophilia (PCR) Not detected (NOT DETECTE) Streptococcus sp PCR Not detected (NOT DETECTE) Strep agalactiae (PCR) Not detected (NOT DETECTE) Strep pneumoniae (PCR) Not detected (NOT DETECTE) S. pyogenes (PCR) Not detected (NOT DETECTE) P. aeruginosa (PCR) Not detected (NOT DETECTE) Hali/B-Vanco Res Genes Not applicable (NOT DETECTE) blaIMP Car res Gene PCR Not applicable (NOT DETECTE) KPC (blaKPC) Detect PCR Not applicable (NOT DETECTE) NDM (blaNDM) Detect PCR Not applicable (NOT DETECTE) OXA-48 Carbapenem Resis Gene (PCR) Not applicable (NOT DETECTE) blaVIM Car Res Gene PCR Not applicable (NOT DETECTE) CTX-M ESBL (PCR) Not applicable (NOT DETECTE) POC Glucose (74-106) mg/dL 01/10/25 01/10/25 01/10/25 Range/Units 02:05 04:50 05:29 WBC (4.0-11.0) 10^3/uL RBC (4.70-6.10) 10^6/uL Hgb (14.0-18.0) g/dL Hct (42.0-54.0) % MCV (80.0-94.0) fL MCH (25.9-34.0) pg MCHC (29.9-35.2) g/dL RDW (11.0-15.0) % Plt Count (150-450) 10^3/uL MPV (9.5-13.5) fL Seg Neuts % (Manual) (43.0-75.0) Lymphocytes % (Manual) (20.5-60.0) % Monocytes % (Manual) (1.7-12.0) % Eosinophils % (Manual) (0.9-7.0) % Basophils % (Manual) (0.2-2.0) % Neutrophils # (Manual) (1.4-6.5) 10^3/uL Lymphocytes # (Manual) (1.20-3.80) 10^3/uL Monocytes # (Manual) (0.30-0.80) 10^3/uL Eosinophils # (Manual) (0.00-0.70) 10^3/uL Basophils # (Manual) (0.00-0.10) 10^3/uL Toxic Granulation PT (9.0-11.6) sec INR Sodium 140 (136-145) mmol/L Potassium 3.8 (3.5-5.1) mmol/L Chloride 110 H (98-107) mmol/L Carbon Dioxide 11.1 L (21.0-32.0) mmol/L Anion Gap 22.7 BUN 77.0 H* (7.0-18.0) mg/dL Creatinine 4.11 H (0.70-1.30) mg/dL Est GFR ( Amer) 17 L (>=60 mL/min/1.73m^2) Est GFR (Non-Af Amer) 14 L (>=60 mL/min/1.73m^2) BUN/Creatinine Ratio 18.7 Glucose 194 H (74-106) mg/dL Lactate 9.4 H* (0.4-2.0) mmol/L Calcium 8.4 L (8.5-10.1) mg/dL Magnesium (1.8-2.4) mg/dL Total Bilirubin (0.2-1.0) mg/dL AST (15-37) U/L ALT (16-63) U/L Alkaline Phosphatase (46-116) U/L Troponin I High Sens 223.2 H* (4.0-76.1) pg/mL NT-Pro-B Natriuret Pep (<=1800.0) pg/mL Total Protein (6.4-8.2) g/dL Albumin (3.4-5.0) g/dL Globulin g/dL Albumin/Globulin Ratio Urine Color Lt. red (YELLOW) Urine Clarity Clear (CLEAR) Urine pH >=9.0 A (5.0-9.0) Ur Specific [place] 1.015 (1.005-1.025) Urine Protein 100 A (NEG/TRACE) mg/dL Urine Glucose (UA) >=1000 A (NEGATIVE) mg/dL Urine Ketones Negative (NEGATIVE) mg/dL Urine Occult Blood Large A (NEGATIVE) Urine Nitrite Negative (NEGATIVE) Urine Bilirubin Negative (NEGATIVE) Urine Urobilinogen 0.2 (0.2-1.0) EU/dL Ur Leukocyte Esterase Small A (NEGATIVE) Urine RBC 10-20 A (0-2) #/HPF Urine WBC 5-10 A (NONE SEEN) #/HPF Ur Squamous Epith Cells None seen (NONE/RARE) #/LPF Urine Crystals None seen (None Seen) #/HPF Urine Bacteria Moderate A (NONE SEEN) #/HPF Urine Casts None seen (NONE SEEN) #/LPF Urine Mucus None seen (NONE SEEN) Ur Culture Indicated? Yes-[facility] [place] Specimen Source A.calcoaceticus-baumannii cmplx PCR (NOT DETECTE) Bacteroides fragilis (NOT DETECTE) Kaylah albicans (PCR) (NOT DETECTE) Kaylah auris (PCR) (NOT DETECTE) C. glabrata (PCR) (NOT DETECTE) C. krusei (PCR) (NOT DETECTE) C. parapsilosis (PCR) (NOT DETECTE) C. tropicalis (PCR) (NOT DETECTE) C. neoform/gattii (PCR) (NOT DETECTE) Enterobacterales (PCR) (NOT DETECTE) E. cloacae complex PCR (NOT DETECTE) Enterococc faecalis PCR (NOT DETECTE) Enterococc faecium PCR (NOT DETECTE) E. coli (PCR) (NOT DETECTE) H. influenzae (PCR) (NOT DETECTE) Klebsiella aerogenes (PCR) (NOT DETECTE) Klebsiella oxytoca PCR (NOT DETECTE) K. pneumoniae group (PCR) (NOT DETECTE) List. monocytogenes PCR (NOT DETECTE) N. meningitidis (PCR) (NOT DETECTE) Proteus spp. (copies/mL) (NOT DETECTE) Salmonella spp. (PCR) (NOT DETECTE) SARS-CoV-2 Ag (CV2AG) (NEGATIVE) Serratia marcescens PCR (NOT DETECTE) Staphylococcus sp PCR (NOT DETECTE) Staph aureus (PCR) (NOT DETECTE) mecA/C & MREJ Resist Gene (NOT DETECTE) mecA/C-Methicil Resis Gene (NOT DETECTE) mcr-1 Colistin Res Gene PCR (NOT DETECTE) Staph epidermidis (PCR) (NOT DETECTE) Staph lugdunensis (TEM-PCR) (NOT DETECTE) S. maltophilia (PCR) (NOT DETECTE) Streptococcus sp PCR (NOT DETECTE) Strep agalactiae (PCR) (NOT DETECTE) Strep pneumoniae (PCR) (NOT DETECTE) S. pyogenes (PCR) (NOT DETECTE) P. aeruginosa (PCR) (NOT DETECTE) Hali/B-Vanco Res Genes (NOT DETECTE) blaIMP Car res Gene PCR (NOT DETECTE) KPC (blaKPC) Detect PCR (NOT DETECTE) NDM (blaNDM) Detect PCR (NOT DETECTE) OXA-48 Carbapenem Resis Gene (PCR) (NOT DETECTE) blaVIM Car Res Gene PCR (NOT DETECTE) CTX-M ESBL (PCR) (NOT DETECTE) POC Glucose 168 H (74-106) mg/dL ECG Data Attestation: I personally reviewed and interpreted this ECG as follows: (Sinus tachycardia at 126 bpm, nonspecific interventricular conduction block, no acute ST segment elevation) Critical Care Time Critical Care Time Total Critical Care Time: 35 Attestation: This 84-year-old male presents for evaluation of altered mental status with findings consistent with sepsis. Due to the high probability of sudden and clinically significant deterioration in his condition he required the highest level of my preparedness to intervene urgently. I provided critical care time including documentation time medication orders and management reevaluation vital sign assessment ordering and reviewing of lab tests ordering reviewing of x-ray studies and consultation with admitting physicians. Aggregate critical care time is 35 minutes including only time during which I was engaged in work direct related to his care and did not include time spent treating other patients simultaneously Discharge Plan Discharge Chief Complaint: Fever Clinical Impression: Altered mental status, Sepsis, Acute kidney injury, Elevated troponin, Metabolic acidosis, Acute hyperglycemia, Acute UTI Patient Disposition: [facility] Time of Disposition Decision: 05:38 Discharge Location: [facility] Discharge Date/Time: 01/10/25 08:25
--- OUTSIDE RECORDS SUMMARY | 2025-01-10 01:37 | XMS_ITS | Clinical Summary ---
Author Organization [facility] Address [address] [place] [address] Care Team Providers Care Boat Wrapper Name Role Phone Unavailable Primary Care Provider Unavailabl e Social History Tobacco Use Types Packs/Day Years Used Date Smoking Tobacco: Never Assessed Sex and Gender Information Value Date Recorded Sex Assigned at Not on file Legal Sex Male 6:41 PM EDT Gender Identity Not on file Sexual Orientation Not on file Plan of Treatment Not on file Insurance MEDICARE [facility]
--- OUTSIDE RECORDS SUMMARY | 2025-01-10 01:38 | XMS_ITS | Clinical Summary ---
Author Organization [employer] tem Address [id number] [address] [place] [address] Care Team Providers Care Head Sawyer Automatic Name Role Phone Unavailable Primary Care Provider Unavailabl e Medications tamsulosin (FLOMAX) 0.4 mg capsule Take 1 capsule (0.4 mg total) by mouth nightly. 30 capsule 03/25/2022 Active clopidogreL (PLAVIX) 75 mg tablet Take 1 tablet (75 mg total) by mouth in the morning. 30 tablet 03/25/2022 Active linaGLIPtin (TRADJENTA) 5 mg tablet Take 1 tablet (5 mg total) by mouth in the morning. 30 tablet 03/25/2022 Active hydrOXYzine (VISTARIL) 25 mg capsule Take 1 capsule (25 mg total) by mouth 3 (three) times a day as needed for itching. 30 capsule 03/25/2022 Active Active Problems Problem Noted Date Diagnosed Date Generalized weakness 03/13/2022 S/P carotid endarterectomy 03/13/2022 Right groin wound 03/13/2022 Carotid artery stenosis, asymptomatic, right Coronary artery disease Hypertension GERD (gastroesophageal reflux disease) Diabetes mellitus Social History Tobacco Use Types Packs/Day Years Used Date Smoking Tobacco: Never Assessed Tobacco Cessation:Counseling Given: Not Answered Sex and Gender Information Value Date Recorded Sex Assigned at Not on file Legal Sex Male 7:25 AM EDT Gender Identity Not on file Sexual Orientation Not on file Last Filed Vital Signs Vital Sign Reading Time Taken Comments Blood Pressure 101/72 03/25/2022 11:49 AM EST Pulse 72 03/25/2022 11:49 AM EST Temperature 36.2 C (97.2 F) 03/25/2022 11:49 AM EST Respiratory Rate 17 03/25/2022 11:49 AM EST Oxygen Saturation 96% 03/25/2022 11:49 AM EST Inhaled Oxygen Concentration - - Weight 72.6 kg (160 lb) 03/25/2022 11:49 AM EST Height - - Body Mass Index - - Plan of Treatment Not on file Medical Devices Not on file Insurance MEDICARE
--- OUTSIDE RECORDS SUMMARY | 2025-01-10 01:38 | XMS_ITS | Encounter Summary ---
Author Name [facility] Organization [facility] Address [address] [place] [id number] Care Team Providers Care Student Development Specialist Name Role Phone KIRT CARDENAS Primary Care [...] Name Patient's Relationship to Policy [place] [id number] [facility] (FACILITY) MEDIGAP PLAN C [place] September 20, 2007 [id number] [phone] [place] ([place]) MEDICARE () PART A September 20, 2007 PART A [id number] [id number] [place]) MEDICARE () PART B September 20, 2007 PART B [id number] [place]) MEDICARE () PART A September 20, 2007 PART A [id number] [place]) MEDICARE () PART B September 20, 2007 PART B [id number] [place]) MEDICARE () PART A Jun 16, 2003 PART A [id number] [place]) MEDICARE () PART B Jun 16, 2003 PART B [id number] [phone] [place] ([place]) MEDICARE (M) PART B Jun 16, 2003 PART B [id number] [place] ([place]) MEDICARE (M) PART A Jun 16, 2003 PART A [id number] [place] PART D (WNR) PRESCRIPT ION PART D May 16, 2012 PART D [id number] [place] [employer] ([employer]) PRESCRIPT ION [place] September 20, 2007 [id number] [phone] [place] Selected Encounter This section includes the information on record at [place] for the Encounter. Date/Time Encounter Type Encounter Description Reason Pro vider Source IHE Encounter Template Text not used by [place] Advance Directives: All historical and current Section Date Range: From patient's date of to the date document was created. This section includes ALL of a patient's completed or amended [place] Advance and Rescinded Directives. The entries below indicate that a directive exists for the patient, but an actual copy is not included with this document. The data comes from all [place] facilities. Date Advance Directives Provider Source Jul 20, 2022 ADVANCE DIRECTIVE DISCUSSION [facility]
--- OUTSIDE RECORDS SUMMARY | 2025-01-10 01:38 | XMS_ITS | Clinical Summary ---
Author Organization [facility] Address [address] [place] [address] Care Team Providers Care Cadastral Engineer Name Role Phone Shreyas Espino MD Primary Care Provider [phone] Allergies No known active allergies Medications aspirin 81 mg EC tablet Take 81 mg by mouth in the morning and at bedtime. Active atorvastatin (Lipitor) 40 mg tablet Take 1 tablet by mouth in the morning. Active carvedilol (Coreg) 25 mg tablet Take 1 tablet twice a day by oral route for 14 days. Active clopidogrel (Plavix) 75 mg tablet Take 1 tablet by mouth in the morning. Active hydrOXYzine HCL (Atarax) 25 mg tablet Take 1 tablet every day by oral route for 90 days. Active SITagliptin (Januvia) 100 mg tablet Take 1 tablet every day by oral route for 90 days. Active pantoprazole (ProtoNix) 40 mg EC tablet Take 1 tablet by mouth in the morning. Active levothyroxine (Synthroid, Levoxyl) 75 mcg tablet Take 1 tablet every day by oral route for 30 days. Active tamsulosin (Flomax) 0.4 mg 24 hr capsule Take 1 capsule every day by oral route for 90 days. Active metFORMIN (Glucophage) 500 mg tabletIndicatio ns:type 2 diabetes mellitus Take 1,000 mg by mouth in the morning and at bedtime. And 1000 mg in AM Active multivitamin tablet Take 1 tablet by mouth in the morning. Active lisinopril 5 mg tablet Take 5 mg by mouth in the morning and at bedtime. Active glimepiride (Amaryl) 2 mg tablet Take 4 mg by mouth in the morning and at bedtime. Active insulin lispro (HumaLOG) 100 unit/mL injection Inject under the skin with breakfast, with lunch, and with evening meal. Active linaGLIPtin (Tradjenta) 5 mg tablet Take 5 mg by mouth in the morning. Active Active Problems Problem Noted Date Diagnosed Date Carotid stenosis, asymptomatic, right 02/22/2022 Preoperative examination, unspecified 02/01/2022 Overview (02/01/2022): Added automatically from request for surgery [id number] Stenosis of right carotid artery 02/01/2022 Overview (02/01/2022): Added automatically from request for surgery [id number] Social History Tobacco Use Types Packs/Day Years Used Date Smoking Tobacco: Former Cigarettes Q uit: 1970 Smokeless Tobacco: Never Tobacco Cessation:Counseling Given: Not Answered Alcohol Use Standard Drinks/Week Comments Not Currently 0 (1 standard drink = 0.6 oz pur e alcohol) Humiliation, Afraid, Rape, and Kick questionnair e Answer Date Recorded Within the last year, have y ou been afraid of your partner or ex-partner? No 02/23/2022 Within the last year, have y ou been humiliated or emotionally abused in other ways by your partner or ex-partner? No Within the last year, have y ou been kicked, hit, slapped, or otherwise physically hurt by your partner or ex-partner? No 02/23/2022 Within the last year, have y ou been raped or forced to have any kind of sexual activity by your partner or ex-partner? No 02/23/2022 Social Connection and Isolat ion Panel [NHANES] Answer Date Recorded In a typical week, how many times do you talk on the phone with family, friends, or neighbors? More than three times a week 02/23/2022 Frequency of Social Gatherin gs with Friends and Family Not on file 02/23/2022 How often do you attend chur ch or sikhism services? More than 4 times per year 02/23/2022 Do you belong to any clubs o r organizations such as scientology groups, unions, fraternal or athletic groups, or school groups? No 02/23/2022 How often do you attend meet ings of the clubs or organizations you belong to? Never 02/23/2022 Are you , , di vorced, , never , or living with a partner? 02/23/2022 AUDIT-C Answer Date Recorded Q1: How often do you have a drink containing alcohol? Never 02/23/2022 Q2: How many drinks containi ng alcohol do you have on a typical day when you are drinking? Patient does not drink Q3: How often do you have si x or more drinks on one occasion? Never 02/23/2022 Overall Financial Resource Strain (CARDIA) Answe r Date Recorded How hard is it for you to pa y for the very basics like food, housing, medical care, and heating? Not hard at all 02/23/2022 [facility] [place] of Occupat ional Health - Occupational Stress Questionnaire Answer Date Recorded Do you feel stress - tense, restless, nervous, or anxious, or unable to sleep at night because your mind is troubled all the time - these days? Not at all 02/23/2022 Exercise Vital Sign Answer Date Recorde d On average, how many days pe r week do you engage in moderate to strenuous exercise (like a brisk walk)? 0 days 02/23/2022 On average, how many minutes do you engage in exercise at this level? 0 min 02/23/2022 Hunger Vital Sign Answer Date Recorded Within the past 12 months, y ou worried that your food would run out before you got the money to buy more. Never true 02/24/20 22 Within the past 12 months, t he food you bought just didn't last and you didn't have money to get more. Never true 02/23/2022 PRAPARE - Transportation Answer Date Re corded In the past 12 months, has l ack of transportation kept you from medical appointments or from getting medications? No 02/13 In the past 12 months, has l ack of transportation kept you from meetings, work, or from getting things needed for daily living? No 02/23/2022 Housing Stability Vital Sign Answer Hari e Recorded In the last 12 months, was t here a time when you were not able to pay the mortgage or rent on time? No 02/23/2022 In the last 12 months, how many places have you lived? 1 02/23/2022 In the last 12 months, was t here a time when you did not have a steady place to sleep or slept in a care home (including now)? Yes 02/23/2022 [place] Safety & Environment Answer Date Rec orded Fear of Current or Ex-Partner Not on file Emotionally Abused Not on file 07/07/2023 Physically Abused Not on file 07/07/2023 Sexually Abused Not on file 07/07/2023 Physically or Sexually Abused Not on file Sex and Gender Information Value Date Recorded Sex Assigned at Male 02/23/2022 1:03 PM EDT Legal Sex Male 10:03 PM EDT Gender Identity Male 02/23/2022 1:03 PM EDT Sexual Orientation Heterosexual or Straight 02/13 1:03 PM EDT Last Filed Vital Signs Vital Sign Reading Time Taken Comments Blood Pressure 160/64 03/29/2022 2:47 PM EST Pulse 72 03/29/2022 2:47 PM EST Temperature 36.2 C (97.1 F) 03/29/2022 2:47 PM EST Respiratory Rate 16 02/24/2022 4:00 PM EDT Oxygen Saturation 100% 02/24/2022 4:00 PM EDT Inhaled Oxygen Concentration - - Weight 68.5 kg (151 lb) 03/29/2022 2:47 PM EST Height 167.6 cm (5' 5.98 ) 02/22/2022 12:29 PM E DT Body Mass Index 24.38 02/22/2022 12:29 PM EDT Plan of Treatment Health Maintenance Due Date Last Done Comments Diabetes: Hemoglobin A1C 1940 Medicare Annual Wellness (AWV) 1940 Diabetes: Retinopathy Screening 1948 Depression Screening 1950 Diabetes: Urine Protein Screening 1957 Adult Tetanus 1960 Pneumococcal Vaccine: 50+ Years (1 of 1 - PCV) 1988 Zoster Vaccines (1 of 2) 1988 Fall Risk Screening 2003 COVID-19 Vaccine (2 - season) 2024 05/12/2021 Influenza Vaccine (#1) 2025 , 03/10/2017, 02/19/2016, Additional history exists HIB Vaccines Aged Out No longer eligi ble based on patient's age to complete this topic HPV Vaccines Aged Out No longer eligi ble based on patient's age to complete this topic IPV Vaccines Aged Out No longer eligi ble based on patient's age to complete this topic Meningococcal B Vaccine Aged Out No l onger eligible based on patient's age to complete this topic Meningococcal Vaccine Aged Out No no emory eligible based on patient's age to complete this topic Rotavirus Vaccines Aged Out No longer eligible based on patient's age to complete this topic Medical Devices Implanted Type Area Medical Accounting Clerk Device Identifier Shelf Expiration Date Model / Serial / Lot [employer] Tcar Stent System 8mm X 40mm Implanted:Qty: 1 on 02/22/2022 by Jazz Diamond MD at [facility] Stent Right: Carotid Other 12/14/2023 [id number] / [id number] / Insurance MEDICARE [facility] Advance Directives * Full Code (Latest Code Status on File) Date Activated Date Inactivated Comments 02/22/2022 5:30 PM 02/24/2022 8:26 PM Care Teams Cadastral Engineer Relationship Specialty Start Date End Date Shreyas Espino MD [address] [place] [address] PCP - General 03/29/22
--- OUTSIDE RECORDS SUMMARY | 2025-01-10 01:38 | XMS_ITS | CCD ---
Author Organization [facility] CliniSyfl Care Team Providers Care Clinical Safety Specialist Name Role Phone Shreyas Espino Primary Care Physician [phone] SHREYAS ESPINO Primary Care Unavailable NAZZAL, MUNIER Admitting Unavailable NANEERAJAL, MUNIER Attending Unavailable SHREYAS ESPINO Referring Unavailable SHREYAS ESPINO Referring Unavailable LANIE MATAMOROS Admitting Unavailable LANIE MATAMOROS Attending Unavailable SHREYAS ESPINO Primary Care Unavailable SHREYAS ESPINO Primary Care Unavailable TRIPP KENNY Admitting Unavailable TRIPP KENNY Attending Unavailable SHREYAS ESPINO Referring Unavailable NAZZAL, MUNIER Referring Unavailable NAZZAL, MUNIER Referring Unavailable NAZZAL, MUNIER Referring Unavailable THALIA KENNYEN Attending Unavailable NAZZAL, MUNIER Attending Unavailable NAZZAL, MUNIER Referring Unavailable SFAELOS, TRIPP Referring Unavailable GUILLEOS TRIPP Attending Unavailable NAZZAL, MUNIER Admitting Unavailable NAZZAL, MUNIER Attending Unavailable DEEP Clement, DR MARTIN Primary Care Unavailable CEJA ., DR MCKOY Admitting Unavailable CEJA ., DR MCKOY Attending Unavailable DEEP ., DR MARTIN Primary Care Unavailable HOBrien [...] Unavailable DEEP .DR MARTIN Primary Care Unavailable HODR SHREYAS Mendez Primary Care Unavailable MISC, DR MARY Admitting Unavailable MISC, DR MARY Consulting Unavailable MISC, DR MARY Attending Unavailable Lamin Thomason Unavailable MD Shreyas Espino Primary Care Provider [phone] MD Lamin Thomason Attending Provider [phone] Dong Stroud MD Attending Provider Dong Stroud Attending Unavailable Dong Stroud Admitting Unavailable SAMANTHA RODRIGUEZ Attending Unavailable SAMANTHA RODRIGUEZ Attending Unavailable SAMANTHA RODRIGUEZ Attending Unavailable SAMANTHA RODRIGUEZ Admitting Unavailable Ted CEJA Attending Unavailable Ted CEJA Attending Unavailable SAMANTHA RODRIGUEZ Admitting Unavailable SAMANTHA RODRIGUEZ Attending Unavailable Allergies Allergy Classification Reported Allergen(s) Allergy Type Date of Onset Reaction(s) Facility (1 source) 06510,00; Translations: [87873,00] Propensity to adverse reactions (disorder) 9 [facility] Repository (2 sources) No Known Medication Allergies; Translations: [No Known Medication Allergies] Propensity to adverse reactions (disorder) [facility] Repository Medications Current Medications Medication Drug Class(es) Dates Sig (Normalized) Sig (Original) amLODIPine 10 mg oral tablet (2 sources) Dihydropyridine Calcium Channel Gerry take 1 tablet by mouth every twenty-four hours amLODIPine Besylate 10 MG 1 tablet Orally Once a day Active amylase 642474 unt / lipase 95208 unt / protease [id number] unt delayed release oral capsule (1 source) Start: 01-31-2023 Creon [id number] UNIT 2 CAPSULES WITH MEALS. 1 WITH SNACKS Orally 5 TIMES DAILY (ALLOW FOR 3 MEALS AND 2 SNACKS. for 30 days Jan, Active ASA (2 sources) ASA 1 tab Oral *please review for potential _update for e-prescription and drug interaction check* Active aspirin 81 mg delayed release oral tablet (11 sources) Platelet Aggregation Inhibitor, Nonsteroidal Anti-inflammatory Drug Start: 09-17-2022 take 2 tablets by mouth once daily aspirin 81 mg Oral EC Tab 162 mg = 2 tab(s), Oral, Daily, Refills(s) 0 Start Date: 09/17/22 Status: Ordered Repeat number: 1 Start: 02-01-2019 aspirin 81 mg Chew Tab 81 mg = 1 tab(s), Chewed, Daily Start Date: 02/01/19 Status: Ordered take 1 tablet by olvin th every twenty-four hours Aspirin 81 81 MG 1 tablet Orally Once a day Active atorvastatin 40 mg oral tablet (11 sources) HMG-CoA Reductase Inhibitor Start: 02-01-2019 take 1 tablet by mouth once daily atorvastatin 40 mg Tab 40 mg = 1 tab(s), Oral, Daily Start Date: 02/01/19 Status: Ordered Repeat number: 1 bifidobacterium infantis 4 mg oral capsule (2 sources) Start: 01-12-2023 Align - as directed Orally once daily for 30 days Dec, Active carvedilol 25 mg oral tablet (10 sources) alpha-Adrenergic Gerry, beta-Adrenergic Gerry Start: 11-27-2021 take 1 tablet by mouth twice daily carvedilol 25 mg Tab 25 mg = 1 tab(s), Oral, BID, Refills(s) 0 Start Date: 11/27/21 Status: Ordered Repeat number: 1 Centrum Adults 50 Plus MultiGummies Therapeutic Multiple Vitamins with Minerals oral tab, chewable (1 source) Start: 09-10-2024 take 1 tablet by mouth once daily Centrum Adults 50 Plus MultiGummies Therapeutic Multiple Vitamins with Minerals oral tab, chewable 1 tab, Oral, Daily Start Date: 09/10/24 Status: Ordered Repeat number: 1 Centrum Vitamints - (2 sources) Centrum Vitamint s - as directed Orally Active cetirizine hydrochloride 10 mg oral tablet (1 source) Histamine-1 Receptor Antagonist Start: 09-17-2022 take 1 tablet by mouth once daily cetirizine 10 mg Tab 10 mg = 1 tab(s), Oral, Daily, Refills(s) 0 Start Date: 09/17/22 Status: Ordered clopidogrel 75 mg oral tablet (11 sources) P2Y12 Platelet Inhibitor Start: 02-01-2019 take 75 mg by mouth once daily clopidogrel 75 mg, Oral, Daily Start Date: 02/01/19 Status: Ordered Repeat number: 1 Clopidogrel Bisu lfate Active doxycycline hyclate 100 mg oral capsule (4 sources) Tetracycline-class Drug Start: 07-16-2024 End: 08-13-2024 take 1 capsule by mouth twice daily doxycycline hyclate 100 mg Cap 100 mg = 1 cap(s), Oral, BID, X 4 week(s), # 56 cap(s), Refills(s) 0, Pharmacy: [facility], 170, cm, 07/16/24 11:35:00 EST, Height/Length Dosing, 63, kg, 07/16/24 11:35:00 EST, Weight Dosing Start Date: 07/16/24 Stop Date: 08/13/24 Status: Ordered Start: 11-27-2021 take 1 capsule by mo ut twice daily doxycycline hyclate 100 mg Cap 100 mg = 1 cap(s), Oral, BID, # 28 cap(s), Refills(s) 0, Pharmacy: [address], 168, cm, 11/27/21 10:35:00 EDT, Height/Length Dosing, 78, kg, 11/27/21 10:35:00 EDT, Weight Dosing Start Date: 11/27/21 Status: Ordered dutasteride 0.5 mg oral capsule (7 sources) 5-alpha Reductase Inhibitor Start: 02-24-2024 take 1 capsule by mouth once daily dutasteride 0.5 mg Cap 0.5 mg = 1 cap(s), Oral, Daily, # 90 cap(s), Refills(s) 3, Pharmacy: [facility], 170, cm, 06/20/23 15:46:00 EST, Height/Length Dosing, 63, kg, 06/20/23 15:46:00 EST, Weight Dosing Start Date: 02/24/24 Status: Ordered Start: 02-21-2023 take 1 capsule by [facility] once daily dutasteride 0.5 mg Cap 0.5 mg = 1 cap(s), Oral, Daily, # 90 cap(s), Refills(s) 3, Pharmacy: [facility], 167.6, cm, 09/22/22 14:29:00 EDT, Height/Length Dosing, 77.3, kg, 12/13/22 15:47:00 EDT, Weight Dosing Start Date: 02/21/23 Status: Ordered Start: 11-27-2021 take 1 capsule by mo wah once daily dutasteride 0.5 mg Cap 0.5 mg = 1 cap(s), Oral, Daily, # 90 cap(s), Refills(s) 3, Pharmacy: [facility], 168, cm, 11/27/21 10:35:00 EDT, Height/Length Dosing, 78, kg, 11/27/21 10:35:00 EDT, Weight Dosing Start Date: 11/27/21 Status: Ordered glimepiride 4 mg oral tablet (11 sources) Sulfonylurea Start: 02-01-2019 take 2 tablets by mouth once daily glimepiride 4 mg Tab 8 mg = 2 tab(s), Oral, Daily Start Date: 02/01/19 Status: Ordered Repeat number: 1 Start: 02-01-2019 take 1 tablet by olvin th once daily glimepiride 4 mg Tab 4 mg = 1 tab(s), Oral, Daily Start Date: 02/01/19 Status: Ordered hydrALAZINE hydrochloride 100 mg oral tablet (2 sources) Arteriolar Vasodilator take 1 tablet by mouth every twelve hours hydrALAZINE HCl 100 MG 1 tablet Orally Twice a day Active hydrOXYzine hydrochloride 25 mg oral tablet (6 sources) Antihistamine Start: 12-14-19 take 1 mg by mouth four times daily hydrOXYzine hydrochloride 25 mg Tab mg tab(s), Oral, QID, Refills(s) 0 Start Date: 12/13/22 Status: Ordered Repeat number: 1 hydrOXYzine HCl 25 MG/ML as directed Intramuscular Active levothyroxine sodium 0.075 mg oral tablet (7 sources) l-Thyroxine Start: 09-17-2022 take 1 tablet by mouth once daily levothyroxine 75 mcg (0.075 mg) Tab 75 mcg = 1 tab(s), Oral, Daily, Refills(s) 0 Start Date: 09/17/22 Status: Ordered Repeat number: 1 take 1 tablet by olvin th once daily in the morning Synthroid 50 MCG 1 tablet on an empty stomach in the morning Orally Once a day Active lisinopril 10 mg oral tablet (10 sources) Angiotensin Converting Enzyme Inhibitor Start: 09-17-2022 [...] pantoprazole 40 mg extended release oral tablet (11 sources) Proton Pump Inhibitor Start: 02-01-2019 take 1 tablet by mouth once daily pantoprazole 40 mg Oral EC Tab 40 mg = 1 tab(s), Oral, Daily Start Date: 02/01/19 Status: Ordered Repeat number: 1 Start: 02-01-2019 take 1 tablet by olvin [...] Status: Ordered SITagliptin 100 mg oral tablet (10 sources) Dipeptidyl Peptidase 4 Inhibitor Start: 11-27-2021 take 1 tablet by mouth once daily Januvia 100 mg Tab 100 mg = 1 tab(s), Oral, Daily, Refills(s) 0 Start Date: 11/27/21 Status: Ordered Repeat number: 1 spironolactone 25 mg oral tablet (4 sources) Aldosterone Antagonist Start: 11-27-2021 take 1 tablet by mouth once daily spironolactone 25 mg Tab 25 mg = 1 tab(s), Oral, Daily, Refills(s) 0 Start Date: 11/27/21 Status: Ordered tamsulosin hydrochloride 0.4 mg oral capsule (10 sources) alpha-Adrenergic Gerry Start: 09-10-2024 take 1 capsule by mouth once daily Flomax 0.4 mg Cap 0.4 mg = 1 cap(s), Oral, Daily Start Date: 09/10/24 Status: Ordered Repeat number: 1 Start: 09-10-2024 tamsulosin 0.4 mg Cap 0.4 mg = 1 cap(s), Refills(s) 0 Start Date: 09/10/24 Status: Ordered Repeat number: 1 Start: 12-13-2022 End: 12-08-2023 take 1 capsule by mouth twice daily tamsulosin 0.4 mg Cap 0.4 mg = 1 cap(s), Oral, BID, X 90 day(s), # 180 cap(s), Refills(s) 3, Pharmacy: [facility] ([facility] ), 167.6, cm, 09/22/22 14:29:00 EDT, Height/Length Dosing, 77.3, kg, 12/13/22 15:47:00 EDT, Weight Dosing Start Date: 12/13/22 Stop Date: 12/08/23 Status: Ordered Start: 02-01-2019 take 1 capsule by [facility] once daily tamsulosin 0.4 mg Cap 0.4 mg = 1 cap(s), Oral, Daily Start Date: 02/01/19 Status: Ordered Thyroxine Sodium Pentahydrat e (4 sources) Start: 02-01-2019 Thyroxine Sodi um Pentahydrate See Instructions, Refills(s) 0 Start Date: 02/01/19 Status: Ordered Vitox (4 sources) Start: 02-01-2019 Vitox See Inst ructions, Refill(s) 0 Start Date: 02/01/19 Status: Ordered Completed/Discontinued Medications Medication Drug Class(es) Dates Sig (Normalized) Sig (Original) ciprofloxacin 250 mg oral tablet (2 sources) Quinolone Antimicrobial Start: 09-11-2024 take 1 tablet by mouth once daily Cipro 250 mg Tab 250 mg = 1 tab(s), Oral, Daily, Take 1 tablet the day before the procedure and 1 tablet after the procedure, # 2 tab(s), Refills(s) 0, Pharmacy: [facility], 170, cm, 09/10/24 16:24:00 EDT, Height/Length Dosing, 63, kg, 09/10/24 16:24:00 EDT, Weight Dosing Start Date: 09/11/24 Status: Ordered Quantity: 2.0 Unit: tab(s) Repeat number: 1 Start: 09-10-2024 Cipro 500 mg T ab See Instructions, 1 tab po night prior to cystoscopy. 1 tab po following cystoscopy., # 2 tab(s), Refills(s) 0, Pharmacy: [facility], 170, cm, 09/10/24 16:24:00 EDT, Height/Length Dosing, 63, kg, 09/10/24 16:24:00 EDT, Weight Dosing Start Date: 09/10/24 Status: Ordered Quantity: 2.0 Unit: tab(s) Repeat number: 1 Indications: Chronic prostatitis; Type 2 diabetes mellitus without complications; Benign prostatic hyperplasia with lower urinary tract symptoms; Problems Active Problems Problem Classification Problem Date Documented Da te Episodic/Chronic Acquired foot deformities (2 sources) Acquired hallux malleus; Translations: [Other hammer toe(s) (acquired), unspecified foot] Chronic Anxiety disorders (5 sources) Anxiety 09-17-2022 Chronic Coronary atherosclerosis and other heart disease (15 sources) Coronary arteriosclerosis; Translations: [Coronary atherosclerosis] 09-17-2022 Chronic Deficiency and other anemia (1 source) Anemia due to chronic blood loss; Translations: [Iron deficiency anemia secondary to blood loss (chronic)] Onset: 09-22-2022 Chronic Deficiency and other anemia (5 sources) Anemia due to blood loss 09-22-2022 Chronic Diabetes mellitus with complications (8 sources) Diabetic peripheral neuropathy; Translations: [Type 2 diabetes mellitus with hyperglycemia] Onset: 01-05-2022 09-17-2022 Chronic Diabetes mellitus without complication (10 sources) Diabetes mellitus; Translations: [Type 2 diabetes mellitus without complication] Onset: 07-16-2024 02-01-2019 Chronic Disorders of lipid metabolism (6 sources) Hypertriglyceridemia ; Translations: [Pure hypercholesterolemia , unspecified] Onset: 01-05-2022 09-17-2022 Chronic Essential hypertension (10 sources) Hypertensive disorder; Translations: [Essential (primary) hypertension] Onset: 01-05-2022 02-01-2019 Chronic Genitourinary symptoms and ill-defined conditions (20 sources) Dysuria; Translations: [Dysuria] Onset: 10-06-2021 Episodic Heart valve disorders (10 sources) Aortic valve regurgitation; Translations: [Mitral valve regurgitation] 09-17-2022 Chronic Hyperplasia of prostate (20 sources) Benign prostatic hypertrophy with outflow obstruction; Translations: [Benign prostatic hyperplasia with lower urinary tract symptoms] Onset: 11-27-2021 02-01-2019 Chronic Inflammatory conditions of male genital organs (14 sources) Chronic prostatitis; Translations: [Chronic prostatitis] Onset: 11-27-2021 02-01-2019 Chronic Occlusion or stenosis of precerebral arteries (13 sources) Occlusion and stenosis of bilateral carotid arteries; Translations: [Occlusion and stenosis of right carotid artery] Onset: 10-15-2021 Chronic Other and ill-defined heart disease (5 sources) Ventricular hypertrophy 09-17-2022 Chronic Other and ill-defined heart disease (4 sources) Heart disease, unspecified; Translations: [HEART DISEASE UNSPECIFIED] Onset: 11-23-2021 Chronic Other circulatory disease (5 sources) History of transient ischemic attack 09-17-2022 Episodic Other diseases of kidney and ureters (2 sources) Urinary tract obstruction; Translations: [Other obstructive and reflux uropathy] Onset: 06-09-2022 Episodic Other gastrointestinal disorders (9 sources) Irritable bowel syndrome 09-17-2022 Chronic Other gastrointestinal disorders (6 sources) Altered bowel function; Translations: [Change in bowel habit] Onset: 09-22-2022 Episodic Other gastrointestinal disorders (8 sources) Incontinence of feces; Translations: [Full incontinence of feces] Onset: 09-22-2022 Episodic Other gastrointestinal disorders (11 sources) Diarrhea; Translations: [Diarrhea, unspecified] Onset: 09-22-2022 Episodic Other gastrointestinal disorders (2 sources) Constipation; Translations: [Constipation, unspecified] Episodic Other gastrointestinal disorders (1 source) Full incontinence of feces Episodic Other gastrointestinal disorders (1 source) Constipation, unspecified Episodic Other gastrointestinal disorders (4 sources) Rectal tenesmus 10-26-2022 Episodic Other nervous system disorders (2 sources) Other acute postprocedural pain; Translations: [Other acute postprocedural pain] Onset: 02-22-2022 Episodic Other nutritional; endocrine; and metabolic disorders (1 source) Abnormal weight loss; Translations: [Abnormal weight loss] Onset: 09-22-2022 Episodic Other nutritional; endocrine; and metabolic disorders (5 sources) Overweight in adulthood with body mass index of 25 or more but less than 30 09-22-2022 Episodic Other nutritional; endocrine; and metabolic disorders (5 sources) Weight loss 09-22-2022 Episodic Other screening for suspected conditions (not mental disorders or infectious disease) (9 sources) Raised prostate specific antigen 02-01-2019 Episodic Peripheral and visceral atherosclerosis (5 sources) Peripheral vascular disease 09-17-2022 Chronic Pulmonary heart disease (5 sources) Pulmonary hypertension 09-17-2022 Chronic Screening and history of mental health and substance abuse codes (9 sources) Ex-smoker 02-01-2019 Episodic Spondylosis; intervertebral disc disorders; other back problems (5 sources) Spinal stenosis of lumbar region 09-17-2022 Episodic Thyroid disorders (5 sources) Hypothyroidism 09-17-2022 Chronic Unclassified (9 sources) Drug therapy finding 02-01-2019 Unclassified (5 sources) Severe aortic valve stenosis 09-17-2022 Unclassified [...] Onset: 01-05-2022 Episodic Other aftercare (1 source) USP (current) use of aspirin; Translations: [SENIOR CARE CURRENT USE OF ASPIRIN] Onset: 01-05-2022 Episodic Other aftercare (1 source) 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 chief 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) use of oral hypoglycemic drugs; Translations: [SENIOR CARE USE ORAL HYPOGLYCEMIC DX] Onset: 01-05-2022 Episodic Other aftercare (1 source) assistant chief 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) use of 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/antip latelets; Translations: [SOFTWARE DEVELOPMENT TEST ENGINEER ANTITHROMBOT/ANTIPLAT LETS] Onset: 01-05-2022 Episodic Other aftercare (1 source) Other flake miller helper (current) drug therapy; Translations: [OTH SENIOR CARE [...] Test Name Value Interpretation Reference Range Facility [facility] Patient [facility] Patient Letter [facility] October 17, 2024 PATRICK RUTHERFORD [address] [place] [id number] : 1940 Dear Mr. Patrick Rutherford , You missed your scheduled appointment on:10/16/24 for bladder scope (cystoscopy). Please note our appointment slots fill quickly. When you fail to cancel or reschedule an appointment the office is unable to fill the appointment slot that was reserved for you. In the future, we ask that you call 24 hours in advance to cancel your appointment. Our current reminder system gives you the opportunity to cancel by responding to our reminder text, phone call or email. You can also call the office to reschedule during normal business hours or use our on-line scheduling portal at your convenience. Our goal is to provide convenient and quality care to all of our patients. We appreciate your consideration regarding any future cancellations. Sincerely, [facility] [address] [place] [address] Normal [facility] Urine Cultureon 09-11-2024 Bacteria identified Cx Nom (U) >100,000 colonies/ml mixed bacterial skin contaminants 2 Days PERFORMED BY: [facility] [address] [place] [id number] PATHOLOGIST TAX TECHNICIAN NEPTALI ABDI M.D. Normal [facility] Comment on above: Performed By: #### C UU #### [facility] [address] [id number] [facility] Urology Office/Clinic Noteon 09-10-2024 Urology Office/Clinic Note Urology Office/Clinic Note Chief Complaint 2 month follow up HPI Staff 84yr old male pt here for 2 mth f/u w/ PVR Previous Dx: BPH with urinary obstruction, chronic prostatitis *tamsulosin 0.4mg qd, dutasteride 0.5mg qd (according to pt stopped dutasteride but it's on his current list of medications.) PVR last visit - 207ml PVR today - 634ml IPSS: 28 Denies hematuria, has burning while urinating but better than last ov. Denies abdominal/flank pain Review of Systems PHQ Score Initial Depression Screen Score: 0 SCORE no fever, chills, malaise, myalgia. no abdominal pain, nausea, vomiting. Physical Exam Vitals & Measurements T: 36.4 ???C(Temporal Artery) HR: 67(Peripheral) RR: 16 BP: 148/63 HT: 170 cm HT: 67 in WT: 63 kg WT: 138.891 lb BMI: 21.8 General: nontoxic, NAD Mouth: moist mucosa Lungs: normal respiratory effort Cardio: regular rate, good distal perfusion Abdomen: nondistended Neurologic: Grossly normal Skin: No rashes or suspicious lesions Assessment/Plan 1. BPH with urinary obstruction (N40.1: Benign prostatic hyperplasia with lower urinary tract symptoms) 07/16/24: Pt is taking tamsulosin BID and dutasteride and is mostly dissatisfied with overall symptom control. Pt is experiencing no side effects. IPSS 28 QOL 5. PVR 207ml. May need scope if no improvements w tx for prostatitis. TODAY: LUTS unchanged. Pt continues tamsulosin and dutasteride as prescribed but only took a few doses of the abx. Said he dc'd it due to dizziness. Offered alternative abx but pt does not wish to try this. Wants to proceed w scope as discussed at last ov. PVR 634ml today. However he admits he only filled the cup. Did NOT empty into the toilet. Says I could have went quite a bit more. The risks and benefits for cystoscopy have been discussed. The risks include bleeding, infection, and irritation of the bladder and urinary channel, among others. The patient, after being informed of procedural details and after questions have been answered, wishes to proceed. Full informed consent has been obtained. Will order Local anesthesia. 2. Diabetes (E11.9: Type 2 diabetes mellitus without complications) 250 gluc on UA 07/16/24. Updated A1c - 7.6 (previously 8.9 in Apr 2023) 3. Chronic prostatitis (N41.1: Chronic prostatitis) Reported burning Jun 2023. PRW advised to avoid bladder irritants and increase fluid intake. 07/16/24: Pt has done both. Dysuria has worsened. LUTS have worsened. Will trial 4 wks abx (Doxy d/t CKD - GFR Apr). TODAY: See #1. Says the burning isn't bad now but the rest of the LUTS continue to be very bothersome. Other obstructive and reflux uropathy (N13.8: Other obstructive and reflux uropathy) Follow-up With When Contact Information [facility] Additional Instructions: For procedure as scheduled. Patient Education Benign Prostatic Hyperplasia Problem List/Past Medical History Ongoing Anemia due to gastrointestinal blood loss Anticoagulated Anxiety Aortic insufficiency At risk for falls Atherosclerotic heart disease BMI 25.0-25.9,adult BPH with urinary obstruction CAD (coronary artery disease) Change in bowel habits Chronic prostatitis Diabetes Diabetic peripheral neuropathy Diarrhea Elevated PSA Fecal incontinence Former smoker Frequent loose stools History of myocardial infarction Hx-TIA (transient ischemic attack) Hypertension Hypertriglyceridemia Hypothyroidism IBS (irritable bowel syndrome) Irritable bowel syndrome Microscopic hematuria Mitral regurgitation [...] Tab, 25 mg= 1 tab(s), Oral, BID Centrum Adults 50 Plus MultiGummies Therapeutic Multiple Vitamins with Minerals oral tab, chewable, 1 tab, Oral, Daily clopidogrel, 75 mg, Oral, Daily Flomax 0.4 mg Cap, 0.4 mg= 1 cap(s), Oral, Daily glimepiride 4 mg Tab, 8 mg= 2 tab(s), Oral, Daily hydrOXYzine hydrochloride 25 mg Tab, Oral, QID Januvia 100 mg Tab, 100 mg= 1 tab(s), Oral, Daily levothyroxine 75 mcg (0.075 mg) Tab, 75 mcg= 1 tab(s), Oral, Daily pantoprazole 40 mg Oral EC Tab, 40 mg= 1 tab(s), Oral, Daily tamsulosin 0.4 mg Cap, 0.4 mg= 1 cap(s) Allergies No Known Medication Allergies Social History Alcohol - Denies Alcohol Use, 09/22/2022 Substance Abuse - Denies Substa (more content not included)... Normal [facility] Comment on above: Result Comment: Elec tronically Signed By: MICHAEL MOROCHO, SAMANTHA Diego\.br\Date and Time Signed: 09/10/24 16:42 EDT CHEMISTRYOrdered By: Derek Sol on 07-16-2024 HbA1c (Bld) [Mass fraction] 7.6 % High <=5.9% [facility] ChemAutoSS [id number] 07-16-2024 HbA1c (Bld) [Mass fraction] 7.6 % High <=5.9 [facility] Comment on above: Performed By: #### 7 [id number] #### [facility] [address] [place] [address] Urology Office/Clinic Noteon 07-16-2024 Urology Office/Clinic Note Urology Office/Clinic Note Chief Complaint 1yr f/u HPI Staff 84yr old male pt here for 1yr f/u. Pt has trouble starting his stream and it is weak. Also reports burning with urination. PVR 207mL Previous Dx: BPH with urinary obstruction, chronic prostatitis *tamsulosin 0.4mg bid, dutasteride 0.5mg qd Review of Systems PHQ Score Initial Depression Screen Score: 0 SCORE No fever, chills, malaise, myalgia. No pain w/ BM. No blood in urine or stool. No discharge, odor, or change in color of urine. No perineal pain/pressure, scrotal pain, or suprapubic pain. Physical Exam Vitals & Measurements HR: 82(Peripheral) RR: 18 BP: 106/70 HT: 67 in HT: 170 cm WT: 63 kg WT: 138.891 lb BMI: 21.8 General: nontoxic, NAD Mouth: moist mucosa Lungs: normal respiratory effort Cardio: regular rate, good distal perfusion Abdomen: nondistended, no suprapubic distention or tenderness, no CVA tenderness Neurologic: Grossly normal Skin: No rashes or suspicious lesions Assessment/Plan 1. BPH with urinary obstruction (N40.1: Benign prostatic hyperplasia with lower urinary tract symptoms) Pt is taking tamsulosin BID and dutasteride and is mostly dissatisfiedwith overall symptom control. Pt is experiencing noside effects. IPSS 28 QOL 5. PVR 207ml. UA completed in office today shows only small leuks, neg nit, neg hgb. 250 gluc. See #2 and #3. May need scope if no improvements. Ordered: 76071 Measure Post Void residual urine and/or bladder capacity by US- non-imaging Body Mass Index (BMI) documented 3008F Current tobacco non-user 1036F Depression Screening Negative 3352F Influenza immunization status assessed 1030F Medication list documented in medical record 1159F Most recent diastolic blood pressure <80 mm Hg 3078F Patient screen for fall risk: no falls in last year or 1 fall with no injury in last year 1101F Review of all meds by a prescribing practitioner or clinical pharmacist documented in EHR 1160F Systolic BP <130 mm Hg (Most Recent) 3074F Urnls Dip Stick Auto w/o Microscopy POC 71223 2. Diabetes (E11.9: Type 2 diabetes mellitus without complications) 250 gluc on UA today. Last A1c was Apr 2023 - 8.9 Will update today. Discussed connection btwn uncontrolled DM and LUTS. Ordered: HgbA1c 3. Chronic prostatitis (N41.1: Chronic prostatitis) Reported burning at last ov Jun 2023. PRW advised to avoid bladder irritants and increase fluid intake. Pt has done both. Dysuria has worsened. LUTS have worsened. Will trial 4 wks abx (Doxy d/t CKD - GFR Apr). Ordered: HgbA1c Orders: doxycycline, 100 mg = 1 cap(s), Oral, BID, X 4 week(s), # 56 cap(s), Refills(s) 0, Pharmacy: [facility] #[id number], 170, cm, 07/16/24 11:35:00 EST, Height/Length Dosing, 63, kg, 07/16/24 11:35:00 EST, Weight Dosing Follow-up With When Contact Information MICHAEL MOROCHO, SAMANTHA Diego, URL In 2 months [address] [place] [address] Additional Instructions: BRENNA LUU, Ted Echavarria, URL [facility] [address], [place] [address]- [phone] Additional Instructions: Patient Education Prostatitis Problem List/Past Medical History Ongoing Anemia due [...] Oral, BID clopidogrel, 75 mg, Oral, Daily doxycycline hyclate 100 mg Cap, 100 mg= 1 cap(s), Oral, BID dutasteride 0.5 mg Cap, 0.5 mg= 1 cap(s), Oral, Daily, 3 refills glimepiride 4 mg Tab, 8 mg= 2 tab(s), Oral, Daily hydrOXYzine hydrochloride 25 mg Tab, Oral, QID Januvia 100 mg Tab, 100 mg= 1 tab(s), Oral, Daily levothyroxine 75 mcg (0.075 mg) (more content not included)... Normal [facility] Comment on above: Result Comment: Elec tronically Signed By: MICHAEL MOROCHO, SAMANTHA Diego\.br\Date and Time Signed: 07/16/24 12:12 EST C reactive protein [Mass/vol ume] in Serum or PlasmaOrdered By: francois [facility] on 01-12-2023 CRP [Mass/Vol] < 0.5 mg/dL 0.0-0.5 [facility] Erythrocyte sedimentation ra te by Photometric methodOrdered By: ad [facility] on 01-12-2023 ESR Photometric method (Bld) [Velocity] 19 mm/hr 0-19 [facility] HIV 1 and HIV-2 antibody ass ay with HIV-1 p24 antigen detectionOrdered By: francois [facility]ois on 01-12-2023 HIV 1+2 Ab+HIV1 p24 Ag IA Ql Non-Reactive Non Reactive [facility] Comment on above: HIV NegativeHIV-1/HI V-2 antibodies and HIV-1 p24 antigen were NOTdetected. There is no laboratory evidence of HIV infection.Performed at: [place] [id number] Director: Igor Roque PhD, Phone: [phone] IgA [Mass/volume] in Serum o r PlasmaOrdered By: Lamin Thomason on 01-12-2023 IgA [Mass/Vol] 437 mg/dL 61-437 [facility] Comment on above: Performed at: - [facility] [place], [place] [id number] Director: Igor Roque PhD, Phone: [phone] No Panel InformationOrdered By: Lamin Thomason on 01-12-2023 Endomysial IgA Antibody Negative Negative [facility] Serum gliadin peptide IgA an tibody assay (units/volume)Ordered By: Lamin Thomason on 01-12-2023 Gliadin peptide IgA Qn (S) 10 units 0-19 [facility] Comment on above: Negative 0 - 19 Weak Positive 20 - 30 Moderate to Strong Positive >30 Serum gliadin peptide IgG an tibody assay (units/volume)Ordered By: Lamin Thomason on 01-12-2023 Gliadin peptide IgG Qn (S) 2 units 0-19 [facility] Comment on above: Negative 0 - 19 Weak Positive 20 - 30 Moderate to Strong Positive >30 Serum tissue transglutaminas e (tTG) IgA antibody assay (units/volume)Ordered By: Lamin Thomason on 01-12-2023 tTG IgA Qn (S) <2 U/mL 0-3 [facility] Comment on above: Negative 0 - 3 Weak Positive 4 - 10 Positive >10 Tissue Transglutaminase (tTG) has been identified as the endomysial antigen. Studies have demonstr- ated that endomysial IgA antibodies have over 99% specificity for gluten sensitive enteropathy. Serum tissue transglutaminas e (tTG) IgG antibody assay (units/volume)Ordered By: Lamin Thomason on 01-12-2023 tTG IgG Qn (S) 5 U/mL 0-5 [facility] Comment on above: Negative 0 - 5 Weak Positive 6 - 9 Positive >9 Thyrotropin [Units/volume] i n Serum or PlasmaOrdered By: Lamin Thomason on 01-12-2023 TSH Qn 1.54 m[IU]/L 0.45-5.33 [facility] POINT OF CARE GLUCOSEon 05- Glucose [Mass/Vol] 132 mg/dL Critically high 74-106 [facility] Comment on above: Performed By: #### P OCGLUC #### [facility] [address] [place] [address] [address] Lety Torres Follow-Upon 03-29-2022 Follow-Up [id number] KrishOral M 1940 M Date Provider Department Center 03/29/2022 TRIPP DECKER HVDEEP [facility] No family history on file Level of Service:49450 IN POSTOP FOLLOW UP VISIT RELATED TO ORIGINAL PX Reason for Visit and Comments: Post-op [483] - TCAR follow up Normal [facility] Office Visiton 03-08-2022 Follow-up visit [id number] KrishOral M 1940 M Date Provider Department [place] 03/08/2022 TRIPP DECKER HVDEEP [facility] No family history on file Level of Service:59746 IN POSTOP FOLLOW UP VISIT RELATED TO ORIGINAL PX Reason for Visit and Comments: Post-op [483] - Post op TCAR on 02/22/22 [facility] BASIC METABOLIC PANELon 02-13 Anion gap [Moles/Vol] 6 mmol/L Normal <=30 [facility] Comment on above: Performed By: #### L [id number] ####[facility] (BEAKER)[address] [place] [place] [address] Calcium [Mass/Vol] 8.8 mg/dL Normal 8.6-10.3 [facility] Comment on above: Performed By: #### L [id number] ####[facility] (BEAKER)[address] [place] [place] [address] Chloride [Moles/Vol] 108 mmol/L High 98-107 [facility] Comment on above: Performed By: #### L [id number] ####[facility] (BEAKER)[address] [place] [place] [address] CO2 [Moles/Vol] 24 mmol/L Normal 21-31 [facility] Comment on above: Performed By: #### L [id number] ####[facility] ([facility])[address] [place] [address] Creatinine [Mass/Vol] 1.18 mg/dL Normal 0.70-1.30 [facility] Comment on above: Performed By: #### L [id number] ####[facility] ([facility])[address] [place] [address] GLOMERULAR FILTRATION RATE ML/MIN/1.73 SQ M.PREDICTED 56.7 mL/min/1.73m*2 Low >60.0 [facility] Comment on above: Result Comment: The [facility]???s estimated glomerular filtration rate (eGFR) will no [...] of individuals. Performed By: #### L [id number] ####[facility] ([facility])[address] [place] [address] Glucose [Mass/Vol] 56 mg/dL Low 70-100 [facility] Comment on above: Performed By: #### L [id number] ####[facility] ([facility])[address] [place] [address] Potassium [Moles/Vol] 3.9 mmol/L Normal 3.5-5.1 [facility] Comment on above: Performed By: #### L [id number] ####[facility] ([facility])[address] [facility] [place] [address] Sodium [Moles/Vol] 138 mmol/L Normal 136-145 [facility] Comment on above: Performed By: #### L [id number] ####[facility] ([facility])[address] [place] [address] Urea nitrogen [Mass/Vol] 20 mg/dL Normal 7-25 [facility] Comment on above: Performed By: #### L [id number] ####[facility] ([facility])[address] [place] [address] UREA NITROGEN/CREATININE (MASS RATIO) IN SER/PLAS 16.95 Normal [facility] Comment on above: Performed By: #### L [id number] ####[facility] ([facility])[address] [place] [address] CBCon 02-24-2022 Erythrocyte distribution width (RBC) [Ratio] 14.0 % Normal 11.5-15.0 [facility] Comment on above: Performed By: #### L [id number] ####[facility] ([facility])[address] [place] [address] ERYTHROCYTE MEAN CORPUSCULAR HEMOGLOBIN CONCENTRATION (G/DL) BY AUTOMATED 32.7 g/dL Normal 32.0-35.0 [facility] Comment on above: Performed By: #### L [id number] ####[facility] ([facility])[address] [place] [address] Hematocrit (Bld) [Volume fraction] 27.5 % Low 39.0-55.0 [facility] Comment on above: Performed By: #### L [id number] ####[facility] (BEAKER)[address] [place] [address] Hemoglobin (Bld) [Mass/Vol] 9.0 g/dL Low 13.0-17.0 [facility] Comment on above: Performed By: #### L [id number] ####[facility] (BEAKER)[address] [place] [address] MCH (RBC) [Entitic mass] 30.4 pg Normal 27.0-33.0 [facility] Comment on above: Performed By: #### L [id number] ####[facility] (BEAKER)[address] [place] [address] MCV (RBC) [Entitic vol] 92.9 fL Normal 82.0-98.0 [facility] Comment on above: Performed By: #### L [id number] ####[facility] ([facility])[address] [place] [address] PLATELETS (10*3/UL) IN BLOOD AUTOMATED COUNT 282 10*3/uL Normal 150-400 [facility] Comment on above: Performed By: #### L [id number] ####[facility] ([facility])[address] [place] [address] RBC (Bld) [#/Vol] 2.96 10*6/uL Low 4.20-5.70 [facility] Comment on above: Performed By: #### L [id number] ####[facility] ([facility])[address] [place] [address] WBC (Bld) [#/Vol] 9.28 10*3/uL Normal 4.00-10.60 [facility] Comment on above: Performed By: #### L [id number] ####[facility] ([facility])[address] [place] [address] MAGNESIUMon 02-24-2022 Magnesium [Mass/Vol] 1.9 mg/dL Normal 1.9-2.7 [facility] Comment on above: Performed By: #### L [id number] #### [facility] ([facility]) [address] [place] [address] NURSNOTEon 02-24-2022 NURSNOTE Attempted to call re port to [place] [address] with no pickup. RN will be happy to give report if facility chooses to call upon their receipt of the patient. Normal [facility] PHOSPHORUSon 02-24-2022 Magnesium [Mass/Vol] 4.7 mg/dL Normal 2.5-5.0 [facility] Comment on above: Performed By: #### L [id number] ####[facility] ([facility])[address] [place] [address] POCT GLUCOSE METER UNSOLICIT ED RESULTSon 02-24-2022 Glucose [Mass/Vol] 144 mg/dL High 70-105 [facility] Comment on above: Result Comment: [email or web address] Performed By: #### L [id number] ####[facility] ([facility])[address] [place] [address] Glucose [Mass/Vol] 196 mg/dL High 70-105 [facility] Comment on above: Result Comment: [email or web address] [email or web address] Performed By: #### L [id number] ####[facility] ([facility])[address] [place] [address] Glucose [Mass/Vol] 113 mg/dL High 70-105 [facility] Comment on above: Result Comment: [email or web address] [email or web address] Performed By: #### L [id number] ####[facility] ([facility])[address] [place] [address] BASIC METABOLIC PANELon 10- Anion gap [Moles/Vol] 7 mmol/L Normal <=30 [facility] Comment on above: Performed By: #### L [id number] ####[facility] ([facility])[address] [place] [address] Calcium [Mass/Vol] 9.1 mg/dL Normal 8.6-10.3 [facility] Comment on above: Performed By: #### L [id number] ####[facility] ([facility])[address] [place] [address] Chloride [Moles/Vol] 109 mmol/L High 98-107 [facility] Comment on above: Performed By: #### L [id number] ####[facility] ([facility])[address] [place] [address] CO2 [Moles/Vol] 22 mmol/L Normal 21-31 [facility] Comment on above: Performed By: #### L [id number] ####[facility] ([facility]AKER)[address] [place] [address] Creatinine [Mass/Vol] 0.88 mg/dL Normal 0.70-1.30 [facility] Comment on above: Performed By: #### L [id number] ####[facility] ([facility])[address] [place] [address] GLOMERULAR FILTRATION RATE ML/MIN/1.73 SQ M.PREDICTED 79.4 mL/min/1.73m*2 Normal >60.0 [facility] Comment on above: Result Comment: The [facility]???s estimated glomerular filtration rate (eGFR) will no [...] of individuals. Performed By: #### L [id number] ####[facility] ([facility])[address] [place] [address] Glucose [Mass/Vol] 91 mg/dL Normal 70-100 [facility] Comment on above: Performed By: #### L [id number] ####[facility] ([facility])[address] [place] [address] Potassium [Moles/Vol] 4.3 mmol/L Normal 3.5-5.1 [facility] Comment on above: Performed By: #### L [id number] ####[facility] ([facility])[address] [place] [address] Sodium [Moles/Vol] 138 mmol/L Normal 136-145 [facility] Comment on above: Performed By: #### L [id number] ####[facility] ([facility])[address] [facility] [place] [place] [address] Urea nitrogen [Mass/Vol] 14 mg/dL Normal 7-25 [facility] Comment on above: Performed By: #### L [id number] ####[facility] ([facility])[address] [place] [address] UREA NITROGEN/CREATININE (MASS RATIO) IN SER/PLAS 15.91 Normal [facility] Comment on above: Performed By: #### L [id number] ####[facility] ([facility])[address] [place] [address] CBCon 02-23-2022 Erythrocyte distribution width (RBC) [Ratio] 14.3 % Normal 11.5-15.0 [facility] Comment on above: Performed By: #### L [id number] ####[facility] ([facility])[address] [place] [address] ERYTHROCYTE MEAN CORPUSCULAR HEMOGLOBIN CONCENTRATION (G/DL) BY AUTOMATED 34.7 g/dL Normal 32.0-35.0 [facility] Comment on above: Performed By: #### L [id number] ####[facility] ([facility])[address] [place] [address] Hematocrit (Bld) [Volume fraction] 30.0 % Low 39.0-55.0 [facility] Comment on above: Performed By: #### L [id number] ####[facility] ([facility])[address] [place] [address] Hemoglobin (Bld) [Mass/Vol] 10.4 g/dL Low 13.0-17.0 [facility] Comment on above: Performed By: #### L [id number] ####[facility] ([facility])[address] [place] [address] MCH (RBC) [Entitic mass] 31.5 pg Normal 27.0-33.0 [facility] Comment on above: Performed By: #### L [id number] ####[facility] ([facility])[address] [place] [address] MCV (RBC) [Entitic vol] 90.9 fL Normal 82.0-98.0 [facility] Comment on above: Performed By: #### L [id number] ####[facility] ([facility])[address] [place] [address] PLATELETS (10*3/UL) IN BLOOD AUTOMATED COUNT 306 10*3/uL Normal 150-400 [facility] Comment on above: Performed By: #### L [id number] ####[facility] ([facility])[address] [facility] [place] [address] RBC (Bld) [#/Vol] 3.30 10*6/uL Low 4.20-5.70 [facility] Comment on above: Performed By: #### L [id number] ####[facility] ([facility])[address] [facility] [place] [address] WBC (Bld) [#/Vol] 10.55 10*3/uL Normal 4.00-10.60 [facility] Comment on above: Performed By: #### L [id number] ####[facility] ([facility])[address] [place] [address] Documentationon 02-23-2022 Documentation [id number] Rutherford,Oral M 1940 M Date Provider Department Center 02/23/2022 JENNIFER COYNE [facility] Medical C No family history on file Normal [facility] MAGNESIUMon 02-23-2022 Magnesium [Mass/Vol] 1.4 mg/dL Low 1.9-2.7 [facility] Comment on above: Performed By: #### L [id number] ####[facility] ([facility])[address] [place] [address] NURSNOTEon 02-23-2022 NURSNOTE Last heparin dose gi christopher at 0042. 0600 dose rescheduled to 0900 , discussed with pharmacy. Normal [facility] NURSNOTE Tylenol given as ord ered, Pt received oral medication well without issue. Pt is able to swallow, and speak in full sentences without difficulty. Airway intact, no trach deviation noted. Normal [facility] PHOSPHORUSon 02-23-2022 Magnesium [Mass/Vol] 4.5 mg/dL Normal 2.5-5.0 [facility] Comment on above: Performed By: #### L [id number] ####[facility] ([facility])[address] [place] [address] POCT GLUCOSE METER UNSOLICIT ED RESULTSon 02-23-2022 Glucose [Mass/Vol] 99 mg/dL Normal 70-105 [facility] Comment on above: Result Comment: [email or web address] Performed By: #### L [id number] ####[facility] ([facility])[address] [place] [address] Glucose [Mass/Vol] 190 mg/dL High 70-105 [facility] Comment on above: Result Comment: [email or web address] Performed By: #### L [id number] ####[facility] ([facility])[address] [place] [address] Glucose [Mass/Vol] 108 mg/dL High 70-105 [facility] Comment on above: Result Comment: [email or web address] Performed By: #### L [id number] ####[facility] ([facility])[address] [place] [address] Glucose [Mass/Vol] 132 mg/dL High 70-105 [facility] Comment on above: Result Comment: [email or web address] Performed By: #### L [id number] ####[facility] ([facility])[address] [place] [address] PROTIME-INRon 02-23-2022 INR IN PPP BY COAGULATION ASSAY 1.08 Normal 0.90-1.10 [facility] Comment on above: Result Comment: ACCC P [...] CHEST 1995;108:[id number]. Performed By: #### L [id number] ####[facility] (AKER)[address] [place] [address] PROTHROMBIN TIME (PT) IN PPP BY COAGULATION ASSAY 13.9 Seconds Normal 12.3-14.8 [facility] Comment on above: Performed By: #### L [id number] ####[facility] ([facility])[address] [place] [place] [address] TROPONIN Ion 02-23-2022 Troponin I.cardiac [Mass/Vol] 0.02 ng/mL Normal 0.00-0.04 [facility] Comment on above: Result Comment: REFE RENCE RANGES: 0.00 - 0.14 ng/mL NEGATIVE 0.15 - 0.25 ng/mL INDETERMINATE > 0.25 ng/mL INDICATIVE OF AN M.I. Performed By: #### L [id number] ####[facility] (BEAKER)[address] [place] [place] [address] XR CHEST 1 VIEWon 02-23-2022 XR CHEST 1 VIEW Single view chest History: Difficulty breathing, shortness of breath Comparison: 08/23/2016 Findings: Single portable view of the chest. Stable cardiomediastinal silhouette. There is atherosclerotic thoracic aorta. No focal consolidation large effusion or pneumothorax. IMPRESSION: No evidence of acute cardiopulmonary process. Electronically signed: Tevin Prieto. Normal [facility] CONSULTon 02-22-2022 CONSULT -------- Attestation signed by [...] Rutherford Age - 81 y.o. - 1940 [facility] # - [id number] Date of Admission - 02/22/2022 12:06 PM [...] Coronary artery disease, COVID-19 (01/14/2022), Diabetes mellitus ([facility]), Fractures, GERD (gastroesophageal reflux disease), History [...] min PRN fentaNYL (more content not included)... [facility] HPon 02-22-2022 [facility] General Surgery HISTORY & PHYSICAL Chief [...] Sabillon MD, Last Rate: 30 mL/hr at 10/10/22 1233, 30 mL/hr at 02/22/22 1233 Insert [...] angio w and wo IV contrast Narrative: [facility] Department of Radiology [address] [place] [id number] === (more content not included)... Normal [facility] DORITANOTJohnathonon 02-22-2022 NURSNOTE Vascular at bedside assessing patient. Vascular changed patient dressing. No new orders at this time. Evy Randhawa HAND CEMENTER Normal [facility] NURSCARLOS Since arrival to PAC U patients neck has measure 22 inch. Patient neck is now measuring 22.5 inches. Patient denies difficulty swallowing and difficulty breathing. Vascular team answered page from Jeremy (surgery) and is coming to see patient at bedside. Evy Randhawa RN PACU Normal [facility] REGINA Attempted to page va scular multiple time over the last half hour. Patients R side of neck feels firm and noted to have serosanguineous drainage on dressing. MICU doctor at bedside. Patient stable. Patient states no difficulty swallowing or breathing. MICU doctor states no new orders at this time and to continue to page vascular. Evy Randhawa HAND CEMENTER Normal [facility] NURSNOTE CONTRAST: 40ML 219 MGY 5.7 MIN Normal [facility] NURSNOTE ACT: 1618: BASELINE - 122 1647: ACT 212 1658: ACT 237 Normal [facility] OPNOTEon 02-22-2022 OPNOTE Right Transcarotid A rtery Revascularization (TCAR) Date: 02/22/2022 Location: [facility] [place] Name: Patrick Rutherford, : 1940, Diagnosis [...] TCAR STENT SYSTEM 8MM X 40MM Implanted [id number] Staff: National Facilities Manager: Low Cerrato RN Scrub Person: Amaya Batista CST; Zoya Harris; Samantha Meadows CST Chief Crew Scheduler: NICOLE Small National Facilities Manager: Aiyana Moody Indications: Patrick Rutherford is an [...] hemodynamically stable. Condition: stable Jazz Diamond Normal [facility] POCT ACTIVATED CLOTTING TIME UNSOLICITED RESULTSon 02-22-2022 POC ACTIVATED CLOTTING TIME 237 sec High 82-152 [facility] Comment on above: Performed By: #### L [id number] ####[facility] (BEAKER)[address] [place] [address] POC ACTIVATED CLOTTING TIME 212 sec High 82-152 [facility] Comment on above: Performed By: #### L [id number] ####[facility] (BEAKER)[address] [place] [address] POC ACTIVATED CLOTTING TIME 122 sec Normal 82-152 [facility] Comment on above: Performed By: #### L [id number] ####[facility] ([facility])[address] [place] [address] POCT GLUCOSE METER UNSOLICIT ED RESULTSon 02-22-2022 Glucose [Mass/Vol] 129 mg/dL High 70-105 [facility] Comment on above: Result Comment: emmy monet Performed By: #### L [id number] ####[facility] ([facility])[address] [place] [address] Glucose [Mass/Vol] 149 mg/dL High 70-105 [facility] Comment on above: Result Comment: tamiko álvarez Performed By: #### L [id number] ####[facility] ([facility])[address] [place] [address] Glucose [Mass/Vol] 239 mg/dL High 70-105 [facility] Comment on above: Result Comment: [email or web address] [email or web address] Performed By: #### L [id number] ####[facility] ([facility])[address] [place] [address] APTTon 02-19-2022 ACTIVATED PARTIAL THROMBOPLASTIN TIME IN PPP BY COAGULATION ASSAY 25.4 Seconds Normal 25.0-35.0 [facility] Comment on above: Performed By: #### L [id number] ####[facility] ([facility])[address] [place] [address] BASIC METABOLIC PANELon Anion gap [Moles/Vol] 9 mmol/L Normal <=30 [facility] Comment on above: Performed By: #### L [id number] ####[facility] ([facility])[address] [place] [address] Calcium [Mass/Vol] 9.3 mg/dL Normal 8.6-10.3 [facility] Comment on above: Performed By: #### L [id number] ####[facility] ([facility])[address] [place] [address] Chloride [Moles/Vol] 106 mmol/L Normal 98-107 [facility] Comment on above: Performed By: #### L [id number] ####[facility] ([facility])[address] [place] [address] CO2 [Moles/Vol] 22 mmol/L Normal 21-31 [facility] Comment on above: Performed By: #### L [id number] ####[facility] ([facility])[address] [place] [address] Creatinine [Mass/Vol] 1.16 mg/dL Normal 0.70-1.30 [facility] Comment on above: Performed By: #### L [id number] ####[facility] ([facility])[address] [place] [address] GLOMERULAR FILTRATION RATE ML/MIN/1.73 SQ M.PREDICTED 57.9 mL/min/1.73m*2 Low >60.0 [facility] Comment on above: Result Comment: The [facility]???s estimated glomerular filtration rate (eGFR) will no [...] of individuals. Performed By: #### L [id number] ####[facility] ([facility])[address] [place] [address] Glucose [Mass/Vol] 253 mg/dL High 70-100 [facility] Comment on above: Performed By: #### L [id number] ####[facility] ([facility])[address] [place] [address] Potassium [Moles/Vol] 4.7 mmol/L Normal 3.5-5.1 [facility] Comment on above: Performed By: #### L [id number] ####[facility] (BEAKER)[address] [place] [address] Sodium [Moles/Vol] 137 mmol/L Normal 136-145 [facility] Comment on above: Performed By: #### L [id number] ####[facility] (BEAKER)[address] [place] [address] Urea nitrogen [Mass/Vol] 25 mg/dL Normal 7-25 [facility] Comment on above: Performed By: #### L [id number] ####[facility] (BEAKER)[address] [place] [address] UREA NITROGEN/CREATININE (MASS RATIO) IN SER/PLAS 21.55 Normal [facility] Comment on above: Performed By: #### L [id number] ####[facility] (BEAKER)[address] [place] [address] CBCon 02-19-2022 Erythrocyte distribution width (RBC) [Ratio] 13.9 % Normal 11.5-15.0 [facility] Comment on above: Performed By: #### L [id number] ####[facility] (BEAKER)[address] [place] [address] ERYTHROCYTE MEAN CORPUSCULAR HEMOGLOBIN CONCENTRATION (G/DL) BY AUTOMATED 33.1 g/dL Normal 32.0-35.0 [facility] Comment on above: Performed By: #### L [id number] ####[facility] (BEAKER)[address] [place], [place] [address] Hematocrit (Bld) [Volume fraction] 34.4 % Low 39.0-55.0 [facility] Comment on above: Performed By: #### L [id number] ####[facility] (BEAKER)[address] [place], [place] [address] Hemoglobin (Bld) [Mass/Vol] 11.4 g/dL Low 13.0-17.0 [facility] Comment on above: Performed By: #### L [id number] ####[facility] (BEAKER)[address] [place] [address] MCH (RBC) [Entitic mass] 30.7 pg Normal 27.0-33.0 [facility] Comment on above: Performed By: #### L [id number] ####[facility] ([facility])[address] [place] [address] MCV (RBC) [Entitic vol] 92.7 fL Normal 82.0-98.0 [facility] Comment on above: Performed By: #### L [id number] ####[facility] ([facility])[address] [place] [address] PLATELETS (10*3/UL) IN BLOOD AUTOMATED COUNT 349 10*3/uL Normal 150-400 [facility] Comment on above: Performed By: #### L [id number] ####[facility] ([facility])[address] [place] [address] RBC (Bld) [#/Vol] 3.71 10*6/uL Low 4.20-5.70 [facility] Comment on above: Performed By: #### L [id number] ####[facility] ([facility])[address] [place] [address] WBC (Bld) [#/Vol] 10.62 10*3/uL High 4.00-10.60 [facility] Comment on above: Performed By: #### L [id number] ####[facility] ([facility])[address] [place] [address] MRSA/MSSA DNA NASALon 2021 MRSA DNA Negative Normal Negative, Invalid [facility] Comment on above: Performed By: #### L [id number] ####[facility] ([facility])[address] [place] [address] MSSA DNA Negative Normal Negative, Invalid [facility] Comment on above: Performed By: #### L [id number] ####[facility] (BEAKER)[address] [place] [address] PROTIME-INRon 02-19-2022 INR IN PPP BY COAGULATION ASSAY 1.00 Normal 0.90-1.10 [facility] Comment on above: Result Comment: ACCC P [...] CHEST 1995;108:[id number]. Performed By: #### L [id number] ####[facility] (BEAKER)[address] [place] [address] PROTHROMBIN TIME (PT) IN PPP BY COAGULATION ASSAY 13.2 Seconds Normal 12.3-14.8 [facility] Comment on above: Performed By: #### L [id number] ####[facility] (BEAKER)[address] [place] [address] SARS-COV-2 [facility] 02-19-2022 SARS-CoV-2 (COVID-19) RNA ISABELLA+probe Ql (Unsp spec) Not detected Normal Not Detected [facility] Comment on above: Result Comment: Not detected does not preclude SARS-CoV-2 infection and should not be used as the sole basis for patient management decisions. Not detected results must be combined with clinical observations, patient history, and epidemiological information. The Aptima SARS-CoV-2 assay is a nucleic acid amplification test intended for the qualitative detection of RNA from SARS-CoV-2 isolated and purified from nasopharyngeal (SAMPLE TAKER OPERATOR), oropharyngeal (OP), nasal swab, sputum, and bronchoalveolar lavage (BAL) specimens from patients with signs and symptoms of infection who are suspected of COVID-19. Results are for the identification of SARS-CoV-2 RNA. The SARS-CoV-2 RNA is generally detectable during the acute phase of infection. The Aptima SARS-CoV-2 Assay on the [employer] system is intended for use by laboratory personnel specifically instructed and trained in the operation of the [employer] system. The Aptima SARS-CoV-2 assay is only for use under the Food and Drug Administration Emergency Use Authorization. Testing is limited to laboratories certified under the Clinical Laboratory Improvement Amendments of 1988 (CLIA), 42 U.S.C. ???263a, to perform high complexity tests. Performed By: #### L [id number] ####[facility] (BEAKER)[address] [place] [address] TYPE AND SCREENon 02-19-2022 AB SCREEN Negative Normal [facility] Comment on above: Performed By: #### L [id number] ####[facility] [place], ABO group Nom (Bld) A Normal [facility] Comment on above: Performed By: #### L [id number] ####[facility], RH TYPE IN BLOOD Negative Normal [facility] Comment on above: Performed By: #### L [id number] ####[facility] [place], Orders Onlyon 02-17-2022 Orders Only [id number] Rutherford,Oral M 1940 M Date Provider Department Center 02/17/2022 JUSTIN FELICIANO [facility] Medical C No family history on file Normal [facility] Orders Onlyon 02-16-2022 Orders Only [id number] Rutherford,Oral M 1940 M Date Provider Department Center 02/16/2022 Nilson-AAKASH SMITH [facility] C No family history on file Normal [facility] Orders Onlyon 02-01-2022 Orders Only [id number] Rutherford,Oral M 1940 M Date Provider Department Center 02/01/2022 BEVERLY SORIANO HVCVASENDO MA [facility] No family history on file Normal [facility] CBC AUTO DIFFon 12-28-2021 BASO # 0.1 103/ul Normal 0.0-0.1 [facility] Comment on above: Performed By: #### P OCGLUC #### [facility] [address] [place] [address] Dr. Lety Torres Basophils/100 WBC (Bld) 0.7 % Normal 0.2-2.0 [facility] Comment on above: Performed By: #### P OCGLUC #### [facility] [address] [place] [address] Dr. Lety Torres EO # 0.4 103/ul Normal 0.0-0.7 [facility] Comment on above: Performed By: #### P OCGLUC #### [facility] [address] [place] [address] Dr. Lety Torres Eosinophils/100 WBC (Bld) 4.8 % Normal 0.9-7.0 [facility] Comment on above: Performed By: #### P OCGLUC #### [facility] [address] [place] [address] Dr. Lety Torres Erythrocyte distribution width (RBC) [Ratio] 13.7 % Normal 11.0-15.0 [facility] Comment on above: Performed By: #### P OCGLUC #### [facility] [address] [place] [address] Dr. Lety Torres Hematocrit (Bld) [Volume fraction] 29.7 % Critically low 42.0-54.0 [facility] Comment on above: Performed By: #### P OCGLUC #### [facility] [address] [place] [address] Dr. Lety Torres Hemoglobin (Bld) [Mass/Vol] 9.6 g/dL Critically low 14.0-18.0 [facility] Comment on above: Performed By: #### P OCGLUC #### [facility] [address] [place] [address] Dr. Lety Torres IG # 0.11 10e3/ul Critically high 0.00-0.03 [facility] Comment on above: Performed By: #### P OCGLUC #### [facility] [address] [place] [address] Dr. Lety Torres IG % 1.3 % Critically high 0.0-0.5 [facility] Comment on above: Performed By: #### P OCGLUC #### [facility] [address] [place] [address] Dr. Lety Torres LYMPH # 2.7 103/ul Normal 1.2-3.8 [facility] Comment on above: Performed By: #### P OCGLUC #### [facility] [address] [place] [address] Dr. Lety Torres Lymphocytes/100 WBC (Bld) 32.5 % Normal 20.5-60.0 [facility] Comment on above: Performed By: #### P OCGLUC #### [facility] [address] [place] [address] Dr. Lety Torres MANUAL DIFF REQ NO Normal [facility] Comment on above: Performed By: #### P OCGLUC #### [facility] [address] [place] [address] Dr. Lety Torres MCH (RBC) [Entitic mass] 29.8 pg Normal 25.9-34.0 [facility] Comment on above: Performed By: #### P OCGLUC #### [facility] [address] [place] [address] Dr. Lety Torres MCHC (RBC) [Mass/Vol] 32.3 g/dL Normal 29.9-35.2 [facility] Comment on above: Performed By: #### P OCGLUC #### [facility] [address] [place] [address] Dr. Lety Torres MCV (RBC) [Entitic vol] 92.2 fL Normal 80.0-94.0 [facility] Comment on above: Performed By: #### P OCGLUC #### [facility] [address] [place] [address] Dr. Lety Torres MONO # 0.8 103/ul Normal 0.3-0.8 [facility] Comment on above: Performed By: #### P OCGLUC #### [facility] [address] [place] [address] Dr. Lety Torres Monocytes/100 WBC (Bld) 10.0 % Normal 1.7-12.0 [facility] Comment on above: Performed By: #### P OCGLUC #### [facility] [address] [place] [address] Dr. Lety Torres NEUT # 4.2 103/ul Normal 1.4-6.5 [facility] Comment on above: Performed By: #### P OCGLUC #### [facility] [address] [place] [address] Dr. Lety Torres Neutrophils/100 WBC (Bld) 50.7 % Normal 43.0-75.0 [facility] Comment on above: Performed By: #### P OCGLUC #### [facility] [address] [place] [address] Dr. Lety Torres Platelet mean volume (Bld) [Entitic vol] 9.7 fL Normal 9.5-13.5 [facility] Comment on above: Performed By: #### P OCGLUC #### [facility] [address] [place] [address] Dr. Lety Torres PLT 333 103/ul Normal 150-450 [facility] Comment on above: Performed By: #### P OCGLUC #### [facility] [address] [place] [address] Dr. Lety Torres RBC 3.22 106/ul Critically low 4.70-6.10 [facility] Comment on above: Performed By: #### P OCGLUC #### [facility] [address] [place] [address] Dr. Lety Torres WBC 8.3 103/ul Normal 4.0-11.0 [facility] Comment on above: Performed By: #### P OCGLUC #### [facility] [address] [place] [address] Dr. Lety Torres CULTURE BLOODon 12-28-2021 Microscopic examination of blood, culture Culture Observations: Aerobic and Anaerobic bottle positive. Culture Observations: BCID- proteus species Culture Observations: Called BCID to Jacinta Morel in [facility] at 2015 on 12/25 Isolate 1 Proteus mirabilis Growth [...] Trimethoprim/Sulfamethoxazol e <=20 S F Normal [facility] Comment on above: Performed By: #### B [id number] #### [facility] [address] [place] [address] Dr. Lety Torres PROF 14(COMP METB)on 022 Albumin [Mass/Vol] 2.5 g/dL Critically low 3.4-5.0 Th [facility] Comment on above: Performed By: #### P OCGLUC #### [facility] [address] [place] [address] Dr. Lety Torres Albumin/Globulin [Mass ratio] 0.6 {ratio} Normal [facility] Comment on above: Performed By: #### P OCGLUC #### [facility] [address] [place] [address] Dr. Lety Torres ALP [Catalytic activity/Vol] 85 U/L Normal 46-116 [facility] Comment on above: Performed By: #### P OCGLUC #### [facility] [address] [place] [address] Dr. Lety Torres ALT [Catalytic activity/Vol] 65 U/L Critically high 16-63 [facility] Comment on above: Performed By: #### P OCGLUC #### [facility] [address] [place] [address] Dr. Lety Torres Anion gap [Moles/Vol] 14.4 mmol/L Normal [facility] Comment on above: Performed By: #### P OCGLUC #### [facility] [address] [place] [address] Dr. Lety Torres AST [Catalytic activity/Vol] 30 U/L Normal 15-37 [facility] Comment on above: Performed By: #### P OCGLUC #### [facility] [address] [address] [address] Lety Torres Bilirubin [Mass/Vol] 0.3 mg/dL Normal 0.2-1.0 [facility] Comment on above: Performed By: #### P OCGLUC #### [facility] [address] [address] [address] Lety Torres Calcium [Mass/Vol] 8.6 mg/dL Normal 8.5-10.1 [facility] Comment on above: Performed By: #### P OCGLUC #### [facility] [address] [address] [address] Lety Torres Chloride [Moles/Vol] 107 mmol/L Normal 98-107 [facility] Comment on above: Performed By: #### P OCGLUC #### [facility] [address] [address] [address] Lety Torres CO2 [Moles/Vol] 22.7 mmol/L Normal 21.0-32.0 [facility] Comment on above: Performed By: #### P OCGLUC #### [facility] [address] [address] [address] Lety Torres Creatinine [Mass/Vol] 1.13 mg/dL Normal 0.70-1.30 [facility] Comment on above: Performed By: #### P OCGLUC #### [facility] [address] [address] [address] Lety Torres EGFR-AF IRISH >60 Normal >=60 [facility] Comment on above: Performed By: #### P OCGLUC #### [facility] [address] [address] [address] Lety Torres EGFR-NON AF IRISH >60 Normal >=60 [facility] Comment on above: Performed By: #### P OCGLUC #### [facility] [address] [address] [address] Lety Torres Globulin (S) [Mass/Vol] 4.0 g/dL Normal [facility] Comment on above: Performed By: #### P OCGLUC #### [facility] [address] [address] [address] Ltey Torres Glucose [Mass/Vol] 188 mg/dL Critically high 74-106 T [facility] Comment on above: Performed By: #### P OCGLUC #### [facility] [address] [address] [address] Lety Torres Potassium [Moles/Vol] 4.1 mmol/L Normal 3.5-5.1 [facility] Comment on above: Performed By: #### P OCGLUC #### [facility] [address] [address] [address] Lety Torres Protein [Mass/Vol] 6.5 g/dL Normal 6.4-8.2 [facility] Comment on above: Performed By: #### P OCGLUC #### [facility] [address] [address] [address] Lety Torres Sodium [Moles/Vol] 140 mmol/L Normal 136-145 [facility] Comment on above: Performed By: #### P OCGLUC #### [facility] [address] [address] [address] Lety Torres Urea nitrogen [Mass/Vol] 20.0 mg/dL Critically high 7.0-18.0 [facility] Comment on above: Performed By: #### P OCGLUC #### [facility] [address] [address] [address] Lety Torres Urea nitrogen/Creatinine [Mass ratio] 17.7 mg/mg Normal [facility] Comment on above: Performed By: #### P OCGLUC #### [facility] [address] [address] [address] Lety Torres CBC AUTO DIFFon 12-27-2021 BASO # 0.0 103/ul Normal 0.0-0.1 [facility] Comment on above: Performed By: #### P OCGLUC #### [facility] [address] [address] [address] Lety Torres Basophils/100 WBC (Bld) 0.4 % Normal 0.2-2.0 [facility] Comment on above: Performed By: #### P OCGLUC #### [facility] [address] [address] [address] Lety Torres EO # 0.2 103/ul Normal 0.0-0.7 [facility] Comment on above: Performed By: #### P OCGLUC #### [facility] [address] [place] [address] Dr. Lety Torres Eosinophils/100 WBC (Bld) 2.5 % Normal 0.9-7.0 [facility] Comment on above: Performed By: #### P OCGLUC #### [facility] [address] [place] [address] Dr. Lety Torres Erythrocyte distribution width (RBC) [Ratio] 14.4 % Normal 11.0-15.0 [facility] Comment on above: Performed By: #### P OCGLUC #### [facility] [address] [place] [address] Dr. Lety Torres Hematocrit (Bld) [Volume fraction] 29.7 % Critically low 42.0-54.0 [facility] Comment on above: Performed By: #### P OCGLUC #### [facility] [address] [place] [address] Dr. Lety Torres Hemoglobin (Bld) [Mass/Vol] 9.6 g/dL Critically low 14.0-18.0 [facility] Comment on above: Performed By: #### P OCGLUC #### [facility] [address] [place] [address] Dr. Lety Torres IG # 0.06 10e3/ul Critically high 0.00-0.03 [facility] Comment on above: Performed By: #### P OCGLUC #### [facility] [address] [place] [address] Dr. Lety Torres IG % 0.6 % Critically high 0.0-0.5 [facility] Comment on above: Performed By: #### P OCGLUC #### [facility] [address] [place] [address] Dr. Lety Torres LYMPH # 2.0 103/ul Normal 1.2-3.8 [facility] Comment on above: Performed By: #### P OCGLUC #### [facility] [address] [address] [address] Lety Torres Lymphocytes/100 WBC (Bld) 20.8 % Normal 20.5-60.0 [facility] Comment on above: Performed By: #### P OCGLUC #### [facility] [address] [place] [address] Dr. Lety Torres MANUAL DIFF REQ NO Normal [facility] Comment on above: Performed By: #### P OCGLUC #### [facility] [address] [address] [address] Lety Torres MCH (RBC) [Entitic mass] 30.4 pg Normal 25.9-34.0 [facility] Comment on above: Performed By: #### P OCGLUC #### [facility] [address] [place] [address] Dr. Lety Torres MCHC (RBC) [Mass/Vol] 32.3 g/dL Normal 29.9-35.2 [facility] Comment on above: Performed By: #### P OCGLUC #### [facility] [address] [place] [address] Dr. Lety Torres MCV (RBC) [Entitic vol] 94.0 fL Normal 80.0-94.0 [facility] Comment on above: Performed By: #### P OCGLUC #### [facility] [address] [place] [address] Dr. Lety Torres MONO # 0.9 103/ul Critically high 0.3-0.8 [facility] Comment on above: Performed By: #### P OCGLUC #### [facility] [address] [place] [address] Dr. Lety Torres Monocytes/100 WBC (Bld) 9.6 % Normal 1.7-12.0 [facility] Comment on above: Performed By: #### P OCGLUC #### [facility] [address] [place] [address] Dr. Lety Torres NEUT # 6.3 103/ul Normal 1.4-6.5 [facility] Comment on above: Performed By: #### P OCGLUC #### [facility] [address] [address] [address] Lety Torres Neutrophils/100 WBC (Bld) 66.1 % Normal 43.0-75.0 [facility] Comment on above: Performed By: #### P OCGLUC #### [facility] [address] [address] [address] Lety Torres Platelet mean volume (Bld) [Entitic vol] 10.1 fL Normal 9.5-13.5 [facility] Comment on above: Performed By: #### P OCGLUC #### [facility] [address] [address] [address] Lety Torres PLT 274 103/ul Normal 150-450 [facility] Comment on above: Performed By: #### P OCGLUC #### [facility] [address] [address] [address] Lety Torres RBC 3.16 106/ul Critically low 4.70-6.10 [facility] Comment on above: Performed By: #### P OCGLUC #### [facility] [address] [address] [address] Lety Torres WBC 9.5 103/ul Normal 4.0-11.0 [facility] Comment on above: Performed By: #### P OCGLUC #### [facility] [address] [address] [address] Lety Torres POINT OF CARE GLUCOSEon 12-14 Glucose [Mass/Vol] 247 mg/dL Critically high 74-106 [facility] Comment on above: Performed By: #### P OCGLUC #### [facility] [address] [address] [address] Lety Torres Glucose [Mass/Vol] 135 mg/dL Critically high 74-106 [facility] Comment on above: Performed By: #### P OCGLUC #### [facility] [address] [address] [address] Lety Torres Glucose [Mass/Vol] 124 mg/dL Critically high 74-106 [facility] Comment on above: Performed By: #### P OCGLUC #### [facility] [address] [address] [address] Lety Torres Glucose [Mass/Vol] 98 mg/dL Normal 74-106 [facility] Comment on above: Performed By: #### P OCGLUC #### [facility] [address] [address] [address] Lety Torres Glucose [Mass/Vol] 145 mg/dL Critically high 74-106 T [facility] Comment on above: Performed By: #### C MP #### [facility] [address] [place] [address] Dr. Lety Torres PROF 14(COMP METB)on 022 Albumin [Mass/Vol] 2.4 g/dL Critically low 3.4-5.0 Th [facility] Comment on above: Performed By: #### C MP #### [facility] [address] [place] [address] Dr. Lety Torres Albumin/Globulin [Mass ratio] 0.6 {ratio} Normal [facility] Comment on above: Performed By: #### C MP #### [facility] [address] [place] [address] Dr. Lety Torres ALP [Catalytic activity/Vol] 84 U/L Normal 46-116 [facility] Comment on above: Performed By: #### C MP #### [facility] [address] [place] [address] Dr. Lety Torres ALT [Catalytic activity/Vol] 69 U/L Critically high 16-63 [facility] Comment on above: Performed By: #### C MP #### [facility] [address] [place] [address] Dr. Lety Torres Anion gap [Moles/Vol] 14.3 mmol/L Normal [facility] Comment on above: Performed By: #### C MP #### [facility] [address] [place] [address] Dr. Lety Torres AST [Catalytic activity/Vol] 49 U/L Critically high 15-37 [facility] Comment on above: Performed By: #### C MP #### [facility] [address] [address] [address] Lety Torres Bilirubin [Mass/Vol] 0.3 mg/dL Normal 0.2-1.0 [facility] Comment on above: Performed By: #### C MP #### [facility] [address] [address] [address] Lety Torres Calcium [Mass/Vol] 8.4 mg/dL Critically low 8.5-10.1 Th [facility] Comment on above: Performed By: #### C MP #### [facility] [address] [address] [address] Lety Torres Chloride [Moles/Vol] 109 mmol/L Critically high 98-107 [facility] Comment on above: Performed By: #### C MP #### [facility] [address] [place] [address] Dr. Lety Torres CO2 [Moles/Vol] 22.9 mmol/L Normal 21.0-32.0 [facility] Comment on above: Performed By: #### C MP #### [facility] [address] [address] [address] Lety Torres Creatinine [Mass/Vol] 1.33 mg/dL Critically high 0.70-1.30 [facility] Comment on above: Performed By: #### C MP #### [facility] [address] [place] [address] Dr. Lety Torres EGFR-AF IRISH >60 Normal >=60 [facility] Comment on above: Performed By: #### C MP #### [facility] [address] [address] [address] Lety Torres EGFR-NON AF IRISH 51 mL/min/1.73m2 Critically low >=60 [facility] Comment on above: Performed By: #### C MP #### [facility] [address] [place] [address] Dr. Lety Torres Globulin (S) [Mass/Vol] 3.9 g/dL Normal [facility] Comment on above: Performed By: #### C MP #### [facility] [address] [place] [address] Dr. Lety Torres Glucose [Mass/Vol] 220 mg/dL Critically high 74-106 T [facility] Comment on above: Performed By: #### C MP #### [facility] [address] [address] [address] Lety Torres Potassium [Moles/Vol] 4.2 mmol/L Normal 3.5-5.1 [facility] Comment on above: Performed By: #### C MP #### [facility] [address] [place] [address] Dr. Lety Torres Protein [Mass/Vol] 6.3 g/dL Critically low 6.4-8.2 [facility] Comment on above: Performed By: #### C MP #### [facility] [address] [place] [address] Dr. Lety Torres Sodium [Moles/Vol] 142 mmol/L Normal 136-145 [facility] Comment on above: Performed By: #### C MP #### [facility] [address] [place] [address] Dr. Lety Torres Urea nitrogen [Mass/Vol] 18.0 mg/dL Normal 7.0-18.0 [facility] Comment on above: Performed By: #### C MP #### [facility] [address] [place] [address] Dr. Lety Torres Urea nitrogen/Creatinine [Mass ratio] 13.5 mg/mg Normal [facility] Comment on above: Performed By: #### C MP #### [facility] [address] [place] [address] Dr. Lety Torres CBC AUTO DIFFon 12-26-2021 BASO # 0.0 103/ul Normal 0.0-0.1 [facility] Comment on above: Performed By: #### C BC #### [facility] [address] [place] [address] Dr. Lety Torres Basophils/100 WBC (Bld) 0.2 % Normal 0.2-2.0 [facility] Comment on above: Performed By: #### C BC #### [facility] [address] [place] [address] Dr. Lety Torres EO # 0.0 103/ul Normal 0.0-0.7 [facility] Comment on above: Performed By: #### C BC #### [facility] [address] [place] [address] Dr. Lety Torres Eosinophils/100 WBC (Bld) 0.2 % Critically low 0.9-7.0 [facility] Comment on above: Performed By: #### C BC #### [facility] [address] [place] [address] Dr. Lety Torres Erythrocyte distribution width (RBC) [Ratio] 14.4 % Normal 11.0-15.0 [facility] Comment on above: Performed By: #### C BC #### [facility] [address] [place] [address] Dr. Lety Torres Hematocrit (Bld) [Volume fraction] 29.9 % Critically low 42.0-54.0 [facility] Comment on above: Performed By: #### C BC #### [facility] [address] [place] [address] Dr. Lety Torres Hemoglobin (Bld) [Mass/Vol] 9.6 g/dL Critically low 14.0-18.0 [facility] Comment on above: Performed By: #### C BC #### [facility] [address] [place] [address] Dr. Lety Torres IG # 0.11 10e3/ul Critically high 0.00-0.03 [facility] Comment on above: Performed By: #### C BC #### [facility] [address] [place] [address] Dr. Lety Torres IG % 0.7 % Critically high 0.0-0.5 [facility] Comment on above: Performed By: #### C BC #### [facility] [address] [place] [address] Dr. Lety Torres LYMPH # 2.0 103/ul Normal 1.2-3.8 [facility] Comment on above: Performed By: #### C BC #### [facility] [address] [place] [address] Dr. Lety Torres Lymphocytes/100 WBC (Bld) 12.3 % Critically low 20.5-60.0 [facility] Comment on above: Performed By: #### C BC #### [facility] [address] [place] [address] Dr. Lety Torres MANUAL DIFF REQ NO Normal [facility] Comment on above: Performed By: #### C BC #### [facility] [address] [place] [address] Dr. Lety Torres MCH (RBC) [Entitic mass] 30.1 pg Normal 25.9-34.0 [facility] Comment on above: Performed By: #### C BC #### [facility] [address] [place] [address] Dr. Lety Torres MCHC (RBC) [Mass/Vol] 32.1 g/dL Normal 29.9-35.2 [facility] Comment on above: Performed By: #### C BC #### [facility] [address] [place] [address] Dr. Lety Torres MCV (RBC) [Entitic vol] 93.7 fL Normal 80.0-94.0 [facility] Comment on above: Performed By: #### C BC #### [facility] [address] [place] [address] Dr. Lety Torres MONO # 1.5 103/ul Critically high 0.3-0.8 [facility] Comment on above: Performed By: #### C BC #### [facility] [address] [place] [address] Dr. Lety Torres Monocytes/100 WBC (Bld) 9.3 % Normal 1.7-12.0 [facility] Comment on above: Performed By: #### C BC #### [facility] [address] [place] [address] Dr. Lety Torres NEUT # 12.5 103/ul Critically high 1.4-6.5 [facility] Comment on above: Performed By: #### C BC #### [facility] [address] [place] [address] Dr. Lety Torres Neutrophils/100 WBC (Bld) 77.3 % Critically high 43.0-75.0 [facility] Comment on above: Performed By: #### C BC #### [facility] [address] [place] [address] Dr. Lety Torres Platelet mean volume (Bld) [Entitic vol] 9.5 fL Normal 9.5-13.5 [facility] Comment on above: Performed By: #### C BC #### [facility] [address] [place] [address] Dr. Lety Torres PLT 245 103/ul Normal 150-450 [facility] Comment on above: Performed By: #### C BC #### [facility] [address] [place] [address] Dr. Lety Torres RBC 3.19 106/ul Critically low 4.70-6.10 [facility] Comment on above: Performed By: #### C BC #### [facility] [address] [place] [address] Dr. Lety Torres WBC 16.2 103/ul Critically high 4.0-11.0 [facility] Comment on above: Performed By: #### C BC #### [facility] [address] [place] [address] Dr. Lety Torres BASO # 0.0 103/ul Normal 0.0-0.1 [facility] Comment on above: Performed By: #### P OCGLUC #### [facility] [address] [place] [address] Dr. Lety Torres Basophils/100 WBC (Bld) 0.3 % Normal 0.2-2.0 [facility] Comment on above: Performed By: #### P OCGLUC #### [facility] [address] [place] [address] Dr. Lety Torres EO # 0.1 103/ul Normal 0.0-0.7 [facility] Comment on above: Performed By: #### P OCGLUC #### [facility] [address] [place] [address] Dr. Lety Torres Eosinophils/100 WBC (Bld) 0.3 % Critically low 0.9-7.0 [facility] Comment on above: Performed By: #### P OCGLUC #### [facility] [address] [address] [address] Lety Torres Erythrocyte distribution width (RBC) [Ratio] 14.5 % Normal 11.0-15.0 [facility] Comment on above: Performed By: #### P OCGLUC #### [facility] [address] [place] [address] Dr. Lety Torres Hematocrit (Bld) [Volume fraction] 27.0 % Critically low 42.0-54.0 [facility] Comment on above: Performed By: #### P OCGLUC #### [facility] [address] [place] [address] Dr. Lety Torres Hemoglobin (Bld) [Mass/Vol] 9.0 g/dL Critically low 14.0-18.0 [facility] Comment on above: Performed By: #### P OCGLUC #### [facility] [address] [place] [address] Dr. Lety Torres IG # 0.10 10e3/ul Critically high 0.00-0.03 [facility] Comment on above: Performed By: #### P OCGLUC #### [facility] [address] [place] [address] Dr. Lety Torres IG % 0.7 % Critically high 0.0-0.5 [facility] Comment on above: Performed By: #### P OCGLUC #### [facility] [address] [place] [address] Dr. Lety Torres LYMPH # 2.5 103/ul Normal 1.2-3.8 [facility] Comment on above: Performed By: #### P OCGLUC #### [facility] [address] [place] [address] Dr. Lety Torres Lymphocytes/100 WBC (Bld) 16.4 % Critically low 20.5-60.0 [facility] Comment on above: Performed By: #### P OCGLUC #### [facility] [address] [place] [address] Dr. Lety Torres MANUAL DIFF REQ NO Normal [facility] Comment on above: Performed By: #### P OCGLUC #### [facility] [address] [address] [address] Lety Torres MCH (RBC) [Entitic mass] 30.9 pg Normal 25.9-34.0 [facility] Comment on above: Performed By: #### P OCGLUC #### [facility] [address] [place] [address] Dr. Lety Torres MCHC (RBC) [Mass/Vol] 33.3 g/dL Normal 29.9-35.2 [facility] Comment on above: Performed By: #### P OCGLUC #### [facility] [address] [place] [address] Dr. Lety Torres MCV (RBC) [Entitic vol] 92.8 fL Normal 80.0-94.0 [facility] Comment on above: Performed By: #### P OCGLUC #### [facility] [address] [place] [address] Dr. Lety Torres MONO # 1.3 103/ul Critically high 0.3-0.8 [facility] Comment on above: Performed By: #### P OCGLUC #### [facility] [address] [place] [address] Dr. Lety Torres Monocytes/100 WBC (Bld) 8.3 % Normal 1.7-12.0 [facility] Comment on above: Performed By: #### P OCGLUC #### [facility] [address] [place] [address] Dr. Lety Torres NEUT # 11.3 103/ul Critically high 1.4-6.5 [facility] Comment on above: Performed By: #### P OCGLUC #### [facility] [address] [place] [address] Dr. Lety Torres Neutrophils/100 WBC (Bld) 74.0 % Normal 43.0-75.0 [facility] Comment on above: Performed By: #### P OCGLUC #### [facility] [address] [place] [address] Dr. Lety Torres Platelet mean volume (Bld) [Entitic vol] 9.6 fL Normal 9.5-13.5 [facility] Comment on above: Performed By: #### P OCGLUC #### [facility] [address] [address] [address] Lety Torres PLT 232 103/ul Normal 150-450 [facility] Comment on above: Performed By: #### P OCGLUC #### [facility] [address] [address] [address] Lety Torres RBC 2.91 106/ul Critically low 4.70-6.10 [facility] Comment on above: Performed By: #### P OCGLUC #### [facility] [address] [address] [address] Lety Torres WBC 15.2 103/ul Critically high 4.0-11.0 [facility] Comment on above: Performed By: #### P OCGLUC #### [facility] [address] [address] [address] Lety Torres POINT OF CARE GLUCOSEon 12-14 Glucose [Mass/Vol] 122 mg/dL Critically high 74-106 [facility] Comment on above: Performed By: #### P OCGLUC #### [facility] [address] [place] [address] Dr. Lety Torres Glucose [Mass/Vol] 135 mg/dL Critically high 74-106 [facility] Comment on above: Performed By: #### P OCGLUC #### [facility] [address] [address] [address] Lety Torres Glucose [Mass/Vol] 282 mg/dL Critically high 74-106 [facility] Comment on above: Performed By: #### P OCGLUC #### [facility] [address] [address] [address] Lety Torres Glucose [Mass/Vol] 48 mg/dL Critically low 74-106 [facility] Comment on above: Result Comment: Will Repeat Test Performed By: #### P OCGLUC #### [facility] [address] [place] [address] Dr. Lety Torres Glucose [Mass/Vol] 85 mg/dL Normal 74-106 [facility] Comment on above: Performed By: #### P OCGLUC #### [facility] [address] [place] [address] Dr. Lety Torres Glucose [Mass/Vol] 242 mg/dL Critically high 74-106 T [facility] Comment on above: Performed By: #### P OCGLUC #### [facility] [address] [place] [address] Dr. Lety Torres Glucose [Mass/Vol] 44 mg/dL Critically low 74-106 Th [facility] Comment on above: Result Comment: Prev iously Confirmed Performed By: #### P OCGLUC #### [facility] [address] [place] [address] Dr. Lety Torres PROF 14(COMP METB)on 022 Albumin [Mass/Vol] 2.4 g/dL Critically low 3.4-5.0 Th [facility] Comment on above: Performed By: #### C MP #### [facility] [address] [place] [address] Dr. Lety Torres Albumin/Globulin [Mass ratio] 0.7 {ratio} Normal [facility] Comment on above: Performed By: #### C MP #### [facility] [address] [place] [address] Dr. Lety Torres ALP [Catalytic activity/Vol] 62 U/L Normal 46-116 [facility] Comment on above: Performed By: #### C MP #### [facility] [address] [place] [address] Dr. Lety Torres ALT [Catalytic activity/Vol] 26 U/L Normal 16-63 [facility] Comment on above: Performed By: #### C MP #### [facility] [address] [place] [address] Dr. Lety Torres Anion gap [Moles/Vol] 11.5 mmol/L Normal [facility] Comment on above: Performed By: #### C MP #### [facility] [address] [place] [address] Dr. Lety Torres AST [Catalytic activity/Vol] 22 U/L Normal 15-37 [facility] Comment on above: Performed By: #### C MP #### [facility] [address] [address] [address] Lety Torres Bilirubin [Mass/Vol] 0.5 mg/dL Normal 0.2-1.0 [facility] Comment on above: Performed By: #### C MP #### [facility] [address] [address] [address] Lety Torres Calcium [Mass/Vol] 7.8 mg/dL Critically low 8.5-10.1 [facility] Comment on above: Performed By: #### C MP #### [facility] [address] [address] [address] Lety Torres Chloride [Moles/Vol] 107 mmol/L Normal 98-107 [facility] Comment on above: Performed By: #### C MP #### [facility] [address] [address] [address] Lety Torres CO2 [Moles/Vol] 23.3 mmol/L Normal 21.0-32.0 [facility] Comment on above: Performed By: #### C MP #### [facility] [address] [address] [address] Lety Torres Creatinine [Mass/Vol] 1.34 mg/dL Critically high 0.70-1.30 [facility] Comment on above: Performed By: #### C MP #### [facility] [address] [place] [address] Dr. Lety Torres EGFR-AF IRISH >60 Normal >=60 [facility] Comment on above: Performed By: #### C MP #### [facility] [address] [address] [address] Lety Torres EGFR-NON AF IRISH 51 mL/min/1.73m2 Critically low >=60 [facility] Comment on above: Performed By: #### C MP #### [facility] [address] [place] [address] Dr. Lety Torres Globulin (S) [Mass/Vol] 3.6 g/dL Normal [facility] Comment on above: Performed By: #### C MP #### [facility] [address] [place] [address] Dr. Lety Torres Glucose [Mass/Vol] 61 mg/dL Critically low 74-106 Th [facility] Comment on above: Performed By: #### C MP #### [facility] [address] [place] [address] Dr. Lety Torres Potassium [Moles/Vol] 3.8 mmol/L Normal 3.5-5.1 [facility] Comment on above: Performed By: #### C MP #### [facility] [address] [place] [address] Dr. Lety Torres Protein [Mass/Vol] 6.0 g/dL Critically low 6.4-8.2 [facility] Comment on above: Performed By: #### C MP #### [facility] [address] [place] [address] Dr. Lety Torres Sodium [Moles/Vol] 138 mmol/L Normal 136-145 [facility] Comment on above: Performed By: #### C MP #### [facility] [address] [place] [address] Dr. Lety Torres Urea nitrogen [Mass/Vol] 18.0 mg/dL Normal 7.0-18.0 [facility] Comment on above: Performed By: #### C MP #### [facility] [address] [place] [address] Dr. Lety Torres Urea nitrogen/Creatinine [Mass ratio] 13.4 mg/mg Normal [facility] Comment on above: Performed By: #### C MP #### [facility] [address] [place] [address] Dr. Lety Torres BLOOD CULTURE ID PANELon A. baumannii Not detected Normal NOT DETECTED [facility] Comment on above: Performed By: #### C MP #### [facility] [address] [place] [address] Dr. Lety Torres Performed By: #### C VDTB #### [facility] [address] [place] [address] Dr. Lety Torres Bacteriodes fragilis Not detected Normal NOT DETECTED [facility] Comment on above: Performed By: #### C MP #### [facility] [address] [place] [address] Dr. Lety Torres Performed By: #### C VDTBH #### [facility] [address] [place] [address] Dr. Lety Torres BCID CONTROLS PASSED [facility] Comment on above: Performed By: #### C MP #### [facility] [address] [place] [address] Dr. Lety Torres Performed By: #### C VDTBH #### [facility] [address] [place] [address] Dr. Lety Torres BCIDBTHD BLOOD CULTURE BOTTLE INFORMATION Normal [facility] Comment on above: Performed By: #### C MP #### [facility] [address] [place] [address] Dr. Lety Torres Performed By: #### C VDTBH #### [facility] [address] [place] [address] Dr. Lety Torres BCIDHD1 ANTIMICROBIAL RESIST ANCE GENES [facility] Comment on above: Performed By: #### C MP #### [facility] [address] [place] [address] Dr. Lety Torres Performed By: #### C VDTBH #### [facility] [address] [place] [address] Dr. Lety Torres BCIDHD2 SEE BELOW [facility] Comment on above: Result Comment: Note : Antimicrobial resitance can occur via multiple mechanisms. A Not Detected result for the [employer] antomicrobial resistance gene assays does not indicate antimicrobial susceptibility. Subculturing is required for species identification and susceptibility testing of isolates. Performed By: #### C MP #### [facility] [address] [place] [address] Dr. Lety Torres Performed By: #### C VDTBH #### [facility] [address] [place] [address] Dr. Lety Torres BCIDHD3 Positive [facility] Comment on above: Performed By: #### C MP #### [facility] [address] [address] [address] Lety Torres Performed By: #### C VDTBH #### [facility] [address] [address] [address] Lety Torres BCIDHD4 Negative [facility] Comment on above: Performed By: #### C MP #### [facility] [address] [address] [address] Lety Torres Performed By: #### C VDTBH #### [facility] [address] [place] [address] Dr. Lety Torres BCIDHD5 YEAST Normal [facility] Comment on above: Performed By: #### C MP #### [facility] [address] [place] [address] Dr. Lety Torres Performed By: #### C VDTBH #### [facility] [address] [place] [address] Dr. Lety Torres Bottle Set: Set 1 [facility] Comment on above: Performed By: #### C MP #### [facility] [address] [place] [address] Dr. Lety Torres Performed By: #### C VDTBH #### [facility] [address] [place] [address] Dr. Lety Torres Bottle: Aerobic [facility] Comment on above: Performed By: #### C MP #### [facility] [address] [place] [address] Dr. Lety Torres Bottle: Anaerobic Normal [facility] Comment on above: Performed By: #### C VDTBH #### [facility] [address] [place] [address] Dr. Lety Torres C. neoformans/gattii Not detected Normal NOT DETECTED [facility] Comment on above: Performed By: #### C MP #### [facility] [address] [place] [address] Dr. Lety Torres Performed By: #### C VDTBH #### [facility] [address] [place] [address] Dr. Lety Torres Kaylah albicans Not detected Normal NOT DETECTED [facility] Comment on above: Performed By: #### C MP #### [facility] [address] [place] [address] Dr. Lety Torres Performed By: #### C VDTBH #### [facility] [address] [place] [address] Dr. Lety Torres Kaylah auris Not detected Normal NOT DETECTED [facility] Comment on above: Performed By: #### C MP #### [facility] [address] [place] [address] Dr. Lety Torres Performed By: #### C VDTBH #### [facility] [address] [place] [address] Dr. Lety Torres Kaylah glabrata Not detected Normal NOT DETECTED [facility] Comment on above: Performed By: #### C MP #### [facility] [address] [place] [address] Dr. Lety Torres Performed By: #### C VDTBH #### [facility] [address] [place] [address] Dr. Lety Torres Kaylah Krusei Not detected Normal NOT DETECTED [facility] Comment on above: Performed By: #### C MP #### [facility] [address] [place] [address] Dr. Lety Torres Performed By: #### C VDTBH #### [facility] [address] [place] [address] Dr. Lety Torres Kaylah Parapsilosis Not detected Normal NOT DETECTED [facility] Comment on above: Performed By: #### C MP #### [facility] [address] [place] [address] Dr. Lety Torres Performed By: #### C VDTBH #### [facility] [address] [place] [address] Dr. Lety Torres Kaylah Tropicalis Not detected Normal NOT DETECTED [facility] Comment on above: Performed By: #### C MP #### [facility] [address] [place] [address] Dr. Lety Torres Performed By: #### C VDTBH #### [facility] [address] [place] [address] Dr. Lety Torres CTX-M Resistant Gene Not detected Normal NOT DETECTED [facility] Comment on above: Performed By: #### C MP #### [facility] [address] [place] [address] Dr. Lety Torres Performed By: #### C VDTBH #### [facility] [address] [place] [address] Dr. Lety Torres E. Cloacae complex Not detected Normal NOT DETECTED [facility] Comment on above: Performed By: #### C MP #### [facility] [address] [place] [address] Dr. Lety Torres Performed By: #### C VDTBH #### [facility] [address] [place] [address] Dr. Lety Torres E. faecalis Not detected Normal NOT DETECTED [facility] Comment on above: Performed By: #### C MP #### [facility] [address] [place] [address] Dr. Lety Torres Performed By: #### C VDTBH #### [facility] [address] [place] [address] Dr. Lety Torres E. faecium Not detected Normal NOT DETECTED [facility] Comment on above: Performed By: #### C MP #### [facility] [address] [place] [address] Dr. Lety Torres Performed By: #### C VDTBH #### [facility] [address] [place] [address] Dr. Lety Torres Enterobacteriaceae Detected Abnormal NOT DETECTED [facility] Comment on above: Performed By: #### C MP #### [facility] [address] [place] [address] Dr. Lety Torres Performed By: #### C VDTBH #### [facility] [address] [place] [address] Dr. Lety Torres Escherichia coli Not detected Normal NOT DETECTED [facility] Comment on above: Performed By: #### C MP #### [facility] [address] [place] [address] Dr. Lety Torres Performed By: #### C VDTBH #### [facility] [address] [place] [address] Dr. Lety Torres H. influenzae Not detected Normal NOT DETECTED [facility] Comment on above: Performed By: #### C MP #### [facility] [address] [place] [address] Dr. Lety Torres Performed By: #### C VDTBH #### [facility] [address] [place] [address] Dr. Lety Torres IMP Resistant Gene Not detected Normal NOT DETECTED [facility] Comment on above: Performed By: #### C MP #### [facility] [address] [place] [address] Dr. Lety Torres Performed By: #### C VDTBH #### [facility] [address] [place] [address] Dr. Lety Torres K. oxytoca Not detected Normal NOT DETECTED [facility] Comment on above: Performed By: #### C MP #### [facility] [address] [place] [address] Dr. Lety Torres Performed By: #### C VDTBH #### [facility] [address] [place] [address] Dr. Lety Torres K. pneumoniae Not detected Normal NOT DETECTED [facility] Comment on above: Performed By: #### C MP #### [facility] [address] [place] [address] Dr. Lety Torres Performed By: #### C VDTBH #### [facility] [address] [place] [address] Dr. Lety Torres Klebsiella aerogenes Not detected Normal NOT DETECTED [facility] Comment on above: Performed By: #### C MP #### [facility] [address] [place] [address] Dr. Lety Torres Performed By: #### C VDTBH #### [facility] [address] [place] [address] Dr. Lety Torres KPC Resistant Gene Not detected Normal NOT DETECTED [facility] Comment on above: Performed By: #### C MP #### [facility] [address] [place] [address] Dr. Lety Torres Performed By: #### C VDTBH #### [facility] [address] [place] [address] Dr. Lety Torres List. monocytogenes Not detected Normal NOT DETECTED [facility] Comment on above: Performed By: #### C MP #### [facility] [address] [place] [address] Dr. Lety Torres Performed By: #### C VDTBH #### [facility] [address] [place] [address] Dr. Lety Torres Mcr-1 Resistant Gene Not detected Normal NOT DETECTED [facility] Comment on above: Performed By: #### C MP #### [facility] [address] [place] [address] Dr. Lety Torres Performed By: #### C VDTBH #### [facility] [address] [place] [address] Dr. Lety Torres mecA/C Not detected Normal NOT DETECTED [facility] Comment on above: Performed By: #### C MP #### [facility] [address] [place] [address] Dr. Lety Torres Performed By: #### C VDTBH #### [facility] [address] [place] [address] Dr. Lety Torres mecA/C MREJ Not detected Normal NOT DETECTED [facility] Comment on above: Performed By: #### C MP #### [facility] [address] [place] [address] Dr. Lety Torres Performed By: #### C VDTBH #### [facility] [address] [place] [address] Dr. Lety Torres N. meningitidis Not detected Normal NOT DETECTED [facility] Comment on above: Performed By: #### C MP #### [facility] [address] [place] [address] Dr. Lety Torres Performed By: #### C VDTBH #### [facility] [address] [place] [address] Dr. Lety Torres NDM Resistant Gene Not detected Normal NOT DETECTED [facility] Comment on above: Performed By: #### C MP #### [facility] [address] [place] [address] Dr. Lety Torres Performed By: #### C VDTBH #### [facility] [address] [place] [address] Dr. Lety Torres Oxa-48-like Not detected Normal NOT DETECTED [facility] Comment on above: Performed By: #### C MP #### [facility] [address] [place] [address] Dr. Lety Torres Performed By: #### C VDTBH #### [facility] [address] [place] [address] Dr. Lety Torres Proteus Detected Abnormal NOT DETECTED [facility] Comment on above: Performed By: #### C MP #### [facility] [address] [place] [address] Dr. Lety Torres Performed By: #### C VDTBH #### [facility] [address] [place] [address] Dr. Lety Torres Pseud. aeruginosa Not detected Normal NOT DETECTED [facility] Comment on above: Performed By: #### C MP #### [facility] [address] [place] [address] Dr. Lety Torres Performed By: #### C VDTBH #### [facility] [address] [place] [address] Dr. Lety Torres S. maltophilia Not detected Normal NOT DETECTED [facility] Comment on above: Performed By: #### C MP #### [facility] [address] [place] [address] Dr. Lety Torres Performed By: #### C VDTBH #### [facility] [address] [place] [address] Dr. Lety Torres Salmonella Not detected Normal NOT DETECTED [facility] Comment on above: Performed By: #### C MP #### [facility] [address] [place] [address] Dr. Lety Torres Performed By: #### C VDTBH #### [facility] [address] [place] [address] Dr. Lety Torres Seratia marcescens Not detected Normal NOT DETECTED [facility] Comment on above: Performed By: #### C MP #### [facility] [address] [place] [address] Dr. Lety Torres Performed By: #### C VDTBH #### [facility] [address] [place] [address] Dr. Lety Torres Site: left ac Normal [facility] Comment on above: Performed By: #### C MP #### [facility] [address] [place] [address] Dr. Lety Torres Performed By: #### C VDTBH #### [facility] [address] [place] [address] Dr. Lety Torres Staph. aureus Not detected Normal NOT DETECTED [facility] Comment on above: Performed By: #### C MP #### [facility] [address] [place] [address] Dr. Lety Torres Performed By: #### C VDTBH #### [facility] [address] [place] [address] Dr. Lety Torres Staph. epidermidis Not detected Normal NOT DETECTED [facility] Comment on above: Performed By: #### C MP #### [facility] [address] [place] [address] Dr. Lety Torres Performed By: #### C VDTBH #### [facility] [address] [place] [address] Dr. Lety Torres Staph. lugdunensis Not detected Normal NOT DETECTED [facility] Comment on above: Performed By: #### C MP #### [facility] [address] [place] [address] Dr. Lety Torres Performed By: #### C VDTBH #### [facility] [address] [place] [address] Dr. Lety Torres Staphylococcus Not detected Normal NOT DETECTED [facility] Comment on above: Performed By: #### C MP #### [facility] [address] [place] [address] Dr. Lety Torres Performed By: #### C VDTBH #### [facility] [address] [place] [address] Dr. Lety Torres Strep. agalactiae Not detected Normal NOT DETECTED [facility] Comment on above: Performed By: #### C MP #### [facility] [address] [place] [address] Dr. Lety Torres Performed By: #### C VDTBH #### [facility] [address] [place] [address] Dr. Lety Torres Strep. pneumoniae Not detected Normal NOT DETECTED [facility] Comment on above: Performed By: #### C MP #### [facility] [address] [place] [address] Dr. Lety Torres Performed By: #### C VDTBH #### [facility] [address] [place] [address] Dr. Lety Torres Strep. pyogenes Not detected Normal NOT DETECTED [facility] Comment on above: Performed By: #### C MP #### [facility] [address] [place] [address] Dr. Lety Torres Performed By: #### C VDTBH #### [facility] [address] [place] [address] Dr. Lety Torres Streptococcus Not detected Normal NOT DETECTED [facility] Comment on above: Performed By: #### C MP #### [facility] [address] [place] [address] Dr. Lety Torres Performed By: #### C VDTBH #### [facility] [address] [place] [address] Dr. Lety Torres Dede/B Resist. Gene Not detected Normal NOT DETECTED [facility] Comment on above: Performed By: #### C MP #### [facility] [address] [place] [address] Dr. Lety Torres Performed By: #### C VDTBH #### [facility] [address] [place] [address] Dr. Lety Torres VIM Resistant Gene Not detected Normal NOT DETECTED [facility] Comment on above: Performed By: #### C MP #### [facility] [address] [place] [address] Dr. Lety Torres Performed By: #### C VDTBH #### [facility] [address] [place] [address] Dr. Lety Torres CBC AUTO DIFFon 12-25-2021 BASO # 0.0 103/ul Normal 0.0-0.1 [facility] Comment on above: Performed By: #### P OCGLUC #### [facility] [address] [place] [address] Dr. Lety Torres Basophils/100 WBC (Bld) 0.3 % Normal 0.2-2.0 [facility] Comment on above: Performed By: #### P OCGLUC #### [facility] [address] [place] [address] Dr. Lety Torres EO # 0.0 103/ul Normal 0.0-0.7 [facility] Comment on above: Performed By: #### P OCGLUC #### [facility] [address] [place] [address] Dr. Lety Torres Eosinophils/100 WBC (Bld) 0.1 % Critically low 0.9-7.0 [facility] Comment on above: Performed By: #### P OCGLUC #### [facility] [address] [place] [address] Dr. Lety Torres Erythrocyte distribution width (RBC) [Ratio] 13.8 % Normal 11.0-15.0 [facility] Comment on above: Performed By: #### P OCGLUC #### [facility] [address] [place] [address] Dr. Lety Torres Hematocrit (Bld) [Volume fraction] 50.5 % Normal 42.0-54.0 [facility] Comment on above: Performed By: #### P OCGLUC #### [facility] [address] [place] [address] Dr. Lety Torres Hemoglobin (Bld) [Mass/Vol] 16.8 g/dL Normal 14.0-18.0 [facility] Comment on above: Performed By: #### P OCGLUC #### [facility] [address] [address] [address] Lety Torres IG # 0.04 10e3/ul Critically high 0.00-0.03 [facility] Comment on above: Performed By: #### P OCGLUC #### [facility] [address] [address] [address] Lety Torres IG % 0.6 % Critically high 0.0-0.5 [facility] Comment on above: Performed By: #### P OCGLUC #### [facility] [address] [place] [address] Dr. Lety Torres LYMPH # 0.4 103/ul Critically low 1.2-3.8 [facility] Comment on above: Performed By: #### P OCGLUC #### [facility] [address] [place] [address] Dr. Lety Torres Lymphocytes/100 WBC (Bld) 5.8 % Critically low 20.5-60.0 [facility] Comment on above: Performed By: #### P OCGLUC #### [facility] [address] [place] [address] Dr. Lety Torres MANUAL DIFF REQ NO Normal [facility] Comment on above: Performed By: #### P OCGLUC #### [facility] [address] [place] [address] Dr. Lety Torres MCH (RBC) [Entitic mass] 30.3 pg Normal 25.9-34.0 [facility] Comment on above: Performed By: #### P OCGLUC #### [facility] [address] [place] [address] Dr. Lety Torres MCHC (RBC) [Mass/Vol] 33.3 g/dL Normal 29.9-35.2 [facility] Comment on above: Performed By: #### P OCGLUC #### [facility] [address] [place] [address] Dr. Lety Torres MCV (RBC) [Entitic vol] 91.0 fL Normal 80.0-94.0 [facility] Comment on above: Performed By: #### P OCGLUC #### [facility] [address] [address] [address] Lety Torres MONO # 0.1 103/ul Critically low 0.3-0.8 [facility] Comment on above: Performed By: #### P OCGLUC #### [facility] [address] [address] [address] Lety Torres Monocytes/100 WBC (Bld) 1.0 % Critically low 1.7-12.0 [facility] Comment on above: Performed By: #### P OCGLUC #### [facility] [address] [place] [address] Dr. Lety Torres NEUT # 6.5 103/ul Normal 1.4-6.5 [facility] Comment on above: Performed By: #### P OCGLUC #### [facility] [address] [place] [address] Dr. Lety Torres Neutrophils/100 WBC (Bld) 92.2 % Critically high 43.0-75.0 [facility] Comment on above: Performed By: #### P OCGLUC #### [facility] [address] [place] [address] Dr. Lety Torres Platelet mean volume (Bld) [Entitic vol] 9.5 fL Normal 9.5-13.5 [facility] Comment on above: Performed By: #### P OCGLUC #### [facility] [address] [place] [address] Dr. Lety Torres PLT 186 103/ul Normal 150-450 [facility] Comment on above: Performed By: #### P OCGLUC #### [facility] [address] [place] [address] Dr. Lety Torres RBC 5.55 106/ul Normal 4.70-6.10 [facility] Comment on above: Performed By: #### P OCGLUC #### [facility] [address] [place] [address] Dr. Lety Torres WBC 7.0 103/ul Normal 4.0-11.0 [facility] Comment on above: Performed By: #### P OCGLUC #### [facility] [address] [place] [address] Dr. Lety Torres CULTURE BLOODon 12-25-2021 Microscopic examination of blood, culture Culture Observations: NO GROWTH AT 5 DAYS. Normal [facility] Comment on above: Performed By: #### C MP #### [facility] [address] [place] [address] Dr. Lety Torres CULTURE URINEon 12-25-2021 CULTURE URINE Culture Observations : No growth Normal [facility] Comment on above: Performed By: #### C MP #### [facility] [address] [place] [address] Dr. Lety Torres Covid-19 PCR (CVDTB)on 12-14 SARS-CoV-2 (COVID-19) RNA ISABELLA+probe Ql (Unsp spec) Not detected Normal NOT DETECTED [facility] Comment on above: Result Comment: When diagnostic [...] for this test is supported by the [place] of [employer] and Human Service's declaration that [...] used). Performed By: #### C VDTBH #### [facility] [address] [place] [address] Dr. Lety Torres ER URINE PROFILEon 2 Bilirubin Ql (U) Negative Normal NEGATIVE [facility] Comment on above: Performed By: #### C MP #### [facility] [address] [place] [address] Dr. Lety Torres Clarity (U) SL CLOUDY Abnormal CLEAR [facility] Comment on above: Performed By: #### C MP #### [facility] [address] [place] [address] Dr. Lety Torres Color (U) LT. YELLOW Normal YELLOW [facility] Comment on above: Performed By: #### C MP #### [facility] [address] [place] [address] Dr. Lety Torres ERUAHD A micrscopic examina tion will be performed if indicated. Normal [facility] Comment on above: Performed By: #### C MP #### [facility] [address] [place] [address] Dr. Lety Torres Glucose Ql (U) Negative Normal NEGATIVE [facility] Comment on above: Performed By: #### C MP #### [facility] [address] [place] [address] Dr. Lety Torres Hemoglobin Ql (U) SMALL Abnormal NEGATIVE [facility] Comment on above: Performed By: #### C MP #### [facility] [address] [place] [address] Dr. Lety Torres Ketones Ql (U) Negative Normal NEGATIVE [facility] Comment on above: Performed By: #### C MP #### [facility] [address] [place] [address] Dr. Lety Torres LEUKOCYTES SMALL Abnormal NEGATIVE [facility] Comment on above: Performed By: #### C MP #### [facility] [address] [place] [address] Dr. Leyt Torres Nitrite Ql (U) Positive Abnormal NEGATIVE [facility] Comment on above: Performed By: #### C MP #### [facility] [address] [place] [address] Dr. Lety Torres pH (U) 6.0 [pH] Normal 5-9 [facility] Comment on above: Performed By: #### C MP #### [facility] [address] [place] [address] Dr. Lety Torres SPEC GRAVITY 1.020 Normal 1.005-<=1. 025 [facility] Comment on above: Performed By: #### C MP #### [facility] [address] [address] [address] Lety Torres UA PROTEIN TRACE Normal NEGATIVE/ TRACE [facility] Comment on above: Performed By: #### C MP #### [facility] [address] [address] [address] Lety Torres UR MICRO IND INDICATED Normal [facility] Comment on above: Performed By: #### C MP #### [facility] [address] [address] [address] Lety Torres Urobilinogen Qn (U) 0.2 {Curt'U}/dL Normal 0.2 - 1. 0 [facility] Comment on above: Performed By: #### C MP #### [facility] [address] [address] [address] Lety Torres LACTATE/LACTIC ACIDon 2021 Lactate [Moles/Vol] 1.8 mmol/L Normal 0.4-1.9 [facility] Comment on above: Performed By: #### L ACT #### [facility] [address] [address] [address] Lety Torres Lactate [Moles/Vol] 2.5 mmol/L Critically high 0.4-1.9 [facility] Comment on above: Performed By: #### C MP #### [facility] [address] [address] [address] Lety Torres POINT OF CARE GLUCOSEon 12-14 Glucose [Mass/Vol] 83 mg/dL Normal 74-106 [facility] Comment on above: Performed By: #### P OCGLUC #### [facility] [address] [address] [address] Lety Torres Glucose [Mass/Vol] 45 mg/dL Critically low 74-106 [facility] Comment on above: Result Comment: Resu lt Not Confirmed Performed By: #### P OCGLUC #### [facility] [address] [address] [address] Lety Torres Glucose [Mass/Vol] 44 mg/dL Critically low 74-106 [facility] Comment on above: Result Comment: Will Repeat Test Performed By: #### P OCGLUC #### [facility] [address] [address] [address] Lety Torres Glucose [Mass/Vol] 81 mg/dL Normal 74-106 [facility] Comment on above: Performed By: #### C MP #### [facility] [address] [address] [address] Lety Torres Glucose [Mass/Vol] 146 mg/dL Critically high 74-106 [facility] Comment on above: Performed By: #### P OCGLUC #### [facility] [address] [address] [address] Lety Torres Glucose [Mass/Vol] 213 mg/dL Critically high 74-106 [facility] Comment on above: Performed By: #### P OCGLUC #### [facility] [address] [place] [address] Dr. Lety Torres PROF 14(COMP METB)on 022 Albumin [Mass/Vol] 3.8 g/dL Normal 3.4-5.0 [facility] Comment on above: Performed By: #### P OCGLUC #### [facility] [address] [place] [address] Dr. Lety Torres Albumin/Globulin [Mass ratio] 0.9 {ratio} Normal [facility] Comment on above: Performed By: #### P OCGLUC #### [facility] [address] [place] [address] Dr. Lety Torres ALP [Catalytic activity/Vol] 96 U/L Normal 46-116 [facility] Comment on above: Performed By: #### P OCGLUC #### [facility] [address] [address] [address] Lety Torres ALT [Catalytic activity/Vol] 22 U/L Normal 16-63 [facility] Comment on above: Performed By: #### P OCGLUC #### [facility] [address] [address] [address] Lety Torres Anion gap [Moles/Vol] 16.7 mmol/L Normal [facility] Comment on above: Performed By: #### P OCGLUC #### [facility] [address] [address] [address] Lety Torres AST [Catalytic activity/Vol] 16 U/L Normal 15-37 [facility] Comment on above: Performed By: #### P OCGLUC #### [facility] [address] [address] [address] Lety Torres Bilirubin [Mass/Vol] 1.3 mg/dL Critically high 0.2-1.0 [facility] Comment on above: Performed By: #### P OCGLUC #### [facility] [address] [address] [address] Lety Torres Calcium [Mass/Vol] 9.3 mg/dL Normal 8.5-10.1 [facility] Comment on above: Performed By: #### P OCGLUC #### [facility] [address] [address] [address] Lety Torres Chloride [Moles/Vol] 102 mmol/L Normal 98-107 [facility] Comment on above: Performed By: #### P OCGLUC #### [facility] [address] [address] [address] Lety Torres CO2 [Moles/Vol] 21.8 mmol/L Normal 21.0-32.0 [facility] Comment on above: Performed By: #### P OCGLUC #### [facility] [address] [address] [address] Lety Torres Creatinine [Mass/Vol] 1.52 mg/dL Critically high 0.70-1.30 [facility] Comment on above: Performed By: #### P OCGLUC #### [facility] [address] [address] [address] Lety Torres EGFR-AF IRISH 53 mL/min/1.73m2 Critically low >=60 [facility] Comment on above: Performed By: #### P OCGLUC #### [facility] [address] [address] [address] Lety Torres EGFR-NON AF IRISH 44 mL/min/1.73m2 Critically low >=60 [facility] Comment on above: Performed By: #### P OCGLUC #### [facility] [address] [address] [address] Lety Torres Globulin (S) [Mass/Vol] 4.2 g/dL Normal [facility] Comment on above: Performed By: #### P OCGLUC #### [facility] [address] [address] [address] Lety Torres Glucose [Mass/Vol] 208 mg/dL Critically high 74-106 [facility] Comment on above: Performed By: #### P OCGLUC #### [facility] [address] [address] [address] Lety Torres Potassium [Moles/Vol] 4.5 mmol/L Normal 3.5-5.1 [facility] Comment on above: Performed By: #### P OCGLUC #### [facility] [address] [address] [address] Lety Torres Protein [Mass/Vol] 8.0 g/dL Normal 6.4-8.2 [facility] Comment on above: Performed By: #### P OCGLUC #### [facility] [address] [address] [address] Lety Torres Sodium [Moles/Vol] 136 mmol/L Normal 136-145 [facility] Comment on above: Performed By: #### P OCGLUC #### [facility] [address] [address] [address] Lety Torres Urea nitrogen [Mass/Vol] 21.0 mg/dL Critically high 7.0-18.0 [facility] Comment on above: Performed By: #### P OCGLUC #### [facility] [address] [address] [address] Lety Torres Urea nitrogen/Creatinine [Mass ratio] 13.8 mg/mg Normal [facility] Comment on above: Performed By: #### P OCGLUC #### [facility] [address] [address] [address] Lety Torres URINE MICROSCOPIC ONLYon BACTERIA TRACE Abnormal NONE SEEN [facility] Comment on above: Performed By: #### C MP #### [facility] [address] [place] [address] Dr. Lety Torres Bacteria identified Cx Nom (U) INDICATED Normal [facility] Comment on above: Performed By: #### C MP #### [facility] [address] [place] [address] Dr. Lety Torres CAST NONE SEEN Normal NONE SEEN [facility] Comment on above: Performed By: #### C MP #### [facility] [address] [place] [address] Dr. Lety Torres Crystals LM Nom (Urine sed) NONE SEEN Normal NONE SEEN [facility] Comment on above: Performed By: #### C MP #### [facility] [address] [place] [address] Dr. Lety Torres Epithelial cells LM Ql (Urine sed) RARE Normal NONE SEEN /RARE [facility] Comment on above: Performed By: #### C MP #### [facility] [address] [place] [address] Dr. Lety Torres MUCOUS NONE SEEN Normal NONE SEEN [facility] Comment on above: Performed By: #### C MP #### [facility] [address] [place] [address] Dr. Lety Torres RBC NONE SEEN Abnormal 0-2 [facility] Comment on above: Performed By: #### C MP #### [facility] [address] [place] [address] Dr. Lety Torres WBC 5-10 Abnormal NONE SEEN [facility] Comment on above: Performed By: #### C MP #### [facility] [address] [place] [address] Dr. Lety Torres YEAST PRESENT Abnormal NONE SEEN [facility] Comment on above: Performed By: #### C MP #### [facility] [address] [place] [address] Dr. Lety Torres XR CHEST 1 Von [...] GREGORY ELIZABETH Date: 2021-12-25 02:15 Normal [facility] PROF CHEM 8 (BAS METB)on Anion gap [Moles/Vol] 16.5 mmol/L Normal [facility] Comment on above: Performed By: #### B MP #### [facility] [address] [address] [address] Lety Torres Calcium [Mass/Vol] 8.9 mg/dL Normal 8.5-10.1 [facility] Comment on above: Performed By: #### B MP #### [facility] [address] [address] [address] Lety Torres Chloride [Moles/Vol] 108 mmol/L Critically high 98-107 [facility] Comment on above: Performed By: #### B MP #### [facility] [address] [address] [address] Lety Torres CO2 [Moles/Vol] 21.2 mmol/L Normal 21.0-32.0 [facility] Comment on above: Performed By: #### B MP #### [facility] [address] [address] [address] Lety Torres Creatinine [Mass/Vol] 1.32 mg/dL Critically high 0.70-1.30 [facility] Comment on above: Performed By: #### B MP #### [facility] [address] [address] [address] Lety Torres EGFR-AF IRISH >60 Normal >=60 [facility] Comment on above: Performed By: #### B MP #### [facility] [address] [address] [address] Lety Torres EGFR-NON AF IRISH 52 mL/min/1.73m2 Critically low >=60 [facility] Comment on above: Performed By: #### B MP #### [facility] [address] [address] [address] Lety Torres Glucose [Mass/Vol] 260 mg/dL Critically high 74-106 [facility] Comment on above: Performed By: #### B MP #### [facility] [address] [address] [address] Lety Torres Potassium [Moles/Vol] 4.7 mmol/L Normal 3.5-5.1 [facility] Comment on above: Performed By: #### B MP #### [facility] [address] [address] [address] Lety Torres Sodium [Moles/Vol] 141 mmol/L Normal 136-145 [facility] Comment on above: Performed By: #### B MP #### [facility] [address] [address] [address] Lety Torres Urea nitrogen [Mass/Vol] 23.0 mg/dL Critically high 7.0-18.0 [facility] Comment on above: Performed By: #### B MP #### [facility] [address] [address] [address] Lety Torres Urea nitrogen/Creatinine [Mass ratio] 17.4 mg/mg Normal [facility] Comment on above: Performed By: #### B MP #### [facility] [address] [address] [address] Lety Torres CTA HEADon 11-02-2021 CTA HEAD [facility] Department of Radiology [address] [place] [id number] Patient Name: PATRICK RUTHERFORD : 1940 Sex: M Age: Race: White Pt. Location: [facility] Patient Status: O Ordered Date: 09/11/2021 11:40:00 AM Completed Date: 11/02/2021 03:40 PM Requesting Provider: TRIPP KENNY Attending Provider: TRIPP KENNY Report Copy To: SHREYAS ESPINO Signs & Symptoms: I65.23 Occlusion and stenosis of bilateral carotid arteries I10 History: Zakiya DM? on metformin? kidney dis? Will have labs done at [facility] Comments: Exam: CTA HEAD CTA HEAD 11/02/2021 [...] or hemodynamically significant stenosis. Electronically signed: Ernesto Guillen. Transcribed by: [email or web address], User Resident: ERNESTO GUILLEN Electronically Signed by: ERNESTO GUILLEN @ 11/02/2021 04:25 PM I personally read this/these film(s) with this resident Normal [facility] CTA NECKon 11-02-2021 CTA NECK [facility] Department of Radiology [address] [place] [id number] Patient Name: PATRICK RUTHERFORD : 1940 Sex: M Age: Race: White Pt. Location: [facility] Patient Status: Ordered Date: 09/11/2021 11:40:00 AM Completed Date: 11/02/2021 03:40 PM Requesting Provider: TRIPP KENNY Attending Provider: Report Copy To: SHREYAS ESPINO Signs & Symptoms: I65.23 Occlusion and stenosis of bilateral carotid arteries I10 pre op History: Zakiya DM? on metformin? kidney dis? DM - will have labs done at [facility] Comments: Exam: CTA NECK CTA NECK 11/02/2021 [...] viewed on a separate workstation. The [place] Symptomatic Carotid Endarterectomy Trial (NASCET) method for [...] low as reasonably achievable Electronically signed: Ernesto Guillen. Transcribed by: [email or web address], User Resident: ERNESTO GUILLEN Electronically Signed by: ERNESTO GUILLEN @ 11/02/2021 04:32 PM I personally read this/these film(s) with this resident Normal [facility] CREATININEon 10-15-2021 Creatinine [Mass/Vol] 1.25 mg/dL Normal 0.70-1.30 [facility] Comment on above: Performed By: #### P OCGLUC #### [facility] [address] [address] [address] Lety Torres EGFR-AF IRISH >60 Normal >=60 [facility] Comment on above: Performed By: #### P OCGLUC #### [facility] [address] [place], [place] [address] Dr. Lety Torres EGFR-NON AF IRISH 55 mL/min/1.73m2 Critically low >=60 [facility] Comment on above: Performed By: #### P OCGLUC #### [facility] [address] [address] [address] Lety Torres Vital Signs Date Time Vital Sign Value Performing Clinician Facility 07-16-2024 11:19-0500 Blood Pressure Location SAMANTHA RODRIGUEZ [facility] 07-16-2024 11:19-0500 Diastolic blood pressure 70 mm[Hg] SAMANTHAESME RODRIGUEZ [facility] 07-16-2024 11:19-0500 Heart rate 82 /min SAMANTHA RODRIGUEZ [facility] 07-16-2024 11:19-0500 Respiratory rate 18 /min SAMANTHA RODRIGUEZ [facility] 07-16-2024 11:19-0500 Systolic blood pressure 106 mm[Hg] SAMANTHA RODRIGUEZ [facility] 06-20-2023 15:30-0500 Blood Pressure Location Ted CEJA [facility] 06-20-2023 15:30-0500 Diastolic blood pressure 68 mm[Hg] Ted CEJA [facility] 06-20-2023 15:30-0500 Heart rate 62 /min Ted CEJA [facility] 06-20-2023 15:30-0500 Respiratory rate 16 /min Ted CEJA [facility] 06-20-2023 15:30-0500 Systolic blood pressure 117 mm[Hg] Ted CEJA [facility] 01-12-2023 14:15-0400 Body height 167.64 cm Imad Asaad Other [employer] Other 01-12-2023 14:15-0400 Body mass index (BMI) [Ratio] 26.55 kg/m2 Imad Asaad Other [employer] [facility] Other 01-12-2023 14:15-0400 Body weight 74.62 kg Imad Asaad Other [employer] Other 01-12-2023 14:15-0400 Diastolic blood pressure 52 mm[Hg] Imad Asaad Other [employer] Other 01-12-2023 14:15-0400 Systolic blood pressure 105 mm[Hg] Imad Asaad Other [employer] Other 09-22-2022 14:24-0400 Blood Pressure Location Tevin NILL [facility] 09-22-2022 14:24-0400 Diastolic blood pressure 70 mm[Hg] Tevin NILL [facility] [place] 09-22-2022 14:24-0400 Heart rate 72 /min Tevin NILL [facility] [place] 09-22-2022 14:24-0400 Respiratory rate 16 /min Tevin NILL [facility] [place] 09-22-2022 14:24-0400 Systolic blood pressure 156 mm[Hg] Tevin NILL [facility] [place] 06-09-2022 15:10-0500 Blood Pressure Location SAMANTHA RODRIGUEZ [facility] 06-09-2022 15:10-0500 Diastolic blood pressure 74 mm[Hg] SAMANTHA RODRIGUEZ [facility] 06-09-2022 15:10-0500 Heart rate 68 /min SAMANTHA RODRIGUEZ [facility] 06-09-2022 15:10-0500 Respiratory rate 16 /min SAMANTHA RODRIGUEZ [facility] 06-09-2022 15:10-0500 Systolic blood pressure 138 mm[Hg] SAMANTHA RODRIGUEZ [facility] 12-22-2021 15:10-0400 Blood Pressure Location Ted CEJA [facility] 12-22-2021 15:10-0400 Diastolic blood pressure 88 mm[Hg] Ted CEJA [facility] 12-22-2021 15:10-0400 Heart rate 86 /min Ted CEJA [facility] [place] 12-22-2021 15:10-0400 Systolic blood pressure 179 mm[Hg] Ted CEJA [facility] 11-27-2021 10:25-0400 Blood Pressure Location Ted CEJA [facility] 11-27-2021 10:25-0400 Diastolic blood pressure 67 mm[Hg] Ted CEJA [facility] 11-27-2021 10:25-0400 Heart rate 71 /min Ted CEJA [facility] [place] 11-27-2021 10:25-0400 Respiratory rate 16 /min Ted CEJA [facility] [place] 11-27-2021 10:25-0400 Systolic blood pressure 139 mm[Hg] Ted CEJA [facility] [place] Encounters Encounter Date Encounter Type Care Provider Facility Start: 01-16-2025 ambulatory Ted CEJA Facili ty:[facility] Start: 10-16-2024 End: 10-16-2024 ambulatory Ted CEJA Facility:[facility] Start: 10-16-2024 End: 10-16-2024 Patient encounter procedure Ted CEJA [facility] Start: 09-11-2024 End: 09-11-2024 ambulatory Dong Stroud [facility] Work Phone: Start: 09-11-2024 End: 09-11-2024 Departed Referred Dong Stroud MD Work Phone: [facility] [place] [facility] Start: 09-10-2024 End: 09-10-2024 ambulatory SAMANTHA Johnathon MICHAEL Facility:[facility] [place] Start: 07-16-2024 End: 07-16-2024 ambulatory SAMANTHA Johnathon RODRIGUEZ [facility] Start: 07-16-2024 End: 07-16-2024 Lab Drop off SAMANTHA RODRIGUEZ [facility] Start: 07-16-2024 End: 07-16-2024 ambulatory SAMANTHA Johnathon RODRIGUEZ Facility:[facility] [place] Start: 07-16-2024 End: 07-16-2024 Patient encounter procedure [facility] Start: 06-20-2023 End: 06-20-2023 Patient encounter procedure Ted CEJA [facility] [place] Start: 01-31-2023 End: 01-31-2023 ambulatory Imad Asaad Other [facility] [employer] Other Start: 01-31-2023 Telephone encounter Imad Asaad [facility] Start: 01-18-2023 End: 01-18-2023 ambulatory MD Shreyas Espino Work Phone: [facility] Work Phone: Start: 01-18-2023 End: 01-18-2023 Patient encounter procedure MD Shreyas Espino Work Phone: [facility] [place] Work Phone: Start: 01-16-2023 End: 01-16-2023 ambulatory MD Shreyas Espino Work Phone: [facility] Work Phone: Start: 01-16-2023 End: 01-16-2023 Patient encounter procedure MD Shreyas Espino Work Phone: [facility] [place] Work Phone: Start: 01-12-2023 End: 01-12-2023 Patient encounter procedure MD Shreyas Espino Work Phone: [facility] [place] Work Phone: Start: 01-12-2023 End: 01-12-2023 ambulatory MD Shreyas Espino Work Phone: [facility] Work Phone: Start: 01-12-2023 Office outpatient ne w 45 minutes Imad Asaad [facility] Start: 09-29-2022 End: 09-29-[address] TEVIN PURDY . Facility:[facility] Start: 09-22-2022 End: 09-22-2022 Patient encounter procedure Tevin PURDY [facility] [place] Start: 06-09-2022 End: 06-09-2022 Patient encounter procedure SAMANTHA RODRIGUEZ [facility] [place] Start: 03-29-2022 End: 03-30-2022 ambulatory [facility] Start: 03-08-2022 ambulatory [facility] Start: 02-23-2022 Evaluation and management of inpatient [facility] Start: 02-23-2022 Evaluation and management of inpatient [facility] Start: 02-22-2022 End: 02-24-2022 Evaluation and management of inpatient [facility] Start: 02-19-2022 End: 02-19-[address] [facility] Start: 02-19-2022 End: 02-19-2022 Encounter for other preprocedural examination [facility] Start: 02-01-2022 Encounter for other preprocedural examination [facility] Start: 01-13-[address] SHREYAS ESPINO . Facili ty:[facility] Start: 12-25-2021 End: 12-28-[address] SHREYAS ESPINO . Facility:[facility] Start: 12-22-2021 End: 12-22-2021 Patient encounter procedure Ted CEJA [facility] [place] Start: 11-27-2021 End: 11-27-2021 Patient encounter procedure Ted CEJA [facility] [place] Start: 11-25-2021 ambulatory SHREYAS ESPINO Facility:[facility] Start: 11-23-2021 End: 11-24-[address] FRANCIE ARREGUIN Facility: Start: 11-02-2021 End: 11-03-2021 ambulatory SHREYAS ESPINO Facility:[facility] Start: 10-15-2021 End: 10-16-[address] SHREYAS ESPINO . Facility: Start: 10-06-2021 End: 10-06-2021 Patient encounter procedure SAMANTHA RODRIGUEZ [facility] [place] Start: 07-07-2021 End: 07-08-2021 ambulatory SHREYAS ESPINO Facility:[facility] Procedures Date Procedure Procedure Detail Performing Clinician Start: 09-29-2022 Colonoscopy Ted LANDIS Start: 09-29-2022 Esophagogastroduodenoscopy Ted CEJA Start: 12-22-2021 Cystoscopy Ted FAB CALLEPatricia Bypass of stomach Ted LANDIS Carotid endarterectomy Jeramy PURDY Coronary artery bypass graft SAMANTHA RODRIGUEZ Cystoscopy SAMANTHA RODRIGUEZ Comment on above: 2006 Endarterectomy SAMANTHA Tesfaye Placement of stent SAMANTHA RODRIGUEZ Replacement of aortic valve SAMANTHA RODRIGUEZ Plan of Treatment Date Care Activity Detail Author Start: 09-11-2024 Urine culture [facility] Start: 09-11-2024 Bacteria identified in Urine by Culture Urine Culture [facility] Start: 01-18-2023 Stool culture Stool Culture [facility] Start: 01-16-2023 Ova and Parasite Concentrate Exam Ova and Parasite Concentrate Exam [facility] Bacteria identified in Stool by Culture [facility] Calprotectin [Mass/m ass] in Stool [facility] Elastase.pancreatic [Mass/mass] in Stool [facility] Ova and parasites identified in Unspecified specimen by Light microscopy [facility] Immunizations Immunization Date Immunization Notes Care Provider Elier stahl 02-15-2022 influenza virus vaccine, unspecified formulation SAMANTHA MICHAEL [facility] 05-12-2021 influenza virus vaccine, unspecified formulation SAMANTHA MICHAEL [facility] 05-12-2021 SARS-CoV-2 (COVID-19 ) mRNA-1273 vaccine SAMANTHA MICHAEL [facility] 11-11-2020 SARS-CoV-2 (COVID-19 ) mRNA BNT-162b2 vax SAMANTHA MICHAEL [facility] 10-20-2020 SARS-CoV-2 (COVID-19 ) mRNA BNT-162b2 vax SAMANTHA MICHAEL [facility] 02-25-2020 influenza virus vaccine, unspecified formulation SAMANTHA MICHAEL [facility] 03-10-2017 influenza virus vaccine, unspecified formulation SAMANTHA MICHAEL [facility] 02-19-2016 influenza virus vaccine, unspecified formulation SAMANTHA MICHAEL [facility] 02-19-2009 influenza, whole SAMANTHA PE RRY [facility] Payers Date Payer Category Payer Self-pay 2024 Medicare [id number] 2024 Private Health Insurance [id number] 2022 Medicare [id number] 2016 Unknown [id number] 1959 Medicare [id number] 1959 Self-pay [id number] 1959 Unknown [id number] 1940 Unknown [id number] 1940 Unknown [id number] 1940 Unknown [id number] [id number] 1940 Unknown [id number] [id number] 1938 Unknown [id number] [id number] 1938 Unknown [id number] [id number] 1938 Unknown [id number] [id number] 1938 Unknown [id number] [id number] 1938 Unknown [id number] 2.16.840.1.652754.3.579.2.727 1940 Unknown [id number] 2.16.840.1.990708.3.579.2.727 1938 Unknown [id number] 2.16.840.1.597712.3.579.2.727 1938 Unknown [id number] [id number] 1938 Unknown [id number] 2.16.840.1.080238.3.579.2.727 1940 Unknown [id number] [id number] [facility] M [id number] Unknown [id number] Social History Date Type Detail Facility Tobacco smoking status [facility] Sex Assigned At Male [facility] Start: 11-27-2021 End: 09-10-2024 Tobacco smoking status Ex-smoker (finding) [facility] Tobacco smoking status Never [facility] Start: 1940 Sex Assigned At Male [facility] Start: 12-07-2018 End: 09-13-2024 Sex Male (finding) [facility] Sexual Orientation [facility] Functional Status Date Assessment Result Facility 07-16-2024 Functional Status N/A [facility] 06-20-2023 Functional Status N/A [facility] 09-22-2022 Functional Status N/A [facility] 06-09-2022 Functional Status N/A [facility] 12-22-2021 Functional Status N/A [facility] 11-27-2021 Functional Status N/A [facility] Clinical Notes 09-08-2021 to 09-27-2024 Laboratory Note Date & Type Note Facility 09-27-2024 Hospital Discharge instructions Follow Up Care 09/27/2024 11:12:51 With:BRENNA LUU, Ted Echavarria, URL Address: [facility] [address] , [place] [phone] When: Unknown [facility] 09-10-2024 Note Patient Education Urology Benign Prostatic Hyperplasia Benign [...] or symptoms? Symptoms of this condition include: ??? Getting up often during the night to urinate. ??? Needing to urinate frequently during the day. ??? Difficulty starting urine flow. ??? Decrease in size and strength of your urine stream. ??? Leaking (dribbling) after urinating. ??? Inability to pass urine. This needs immediate treatment. ??? Inability to completely empty your bladder. ??? Pain when you pass urine. This is more common if there is also an infection. ??? Urinary tract infection (UTI). How is this diagnosed? This condition is diagnosed based on your medical history, a physical exam, and your symptoms. Tests will also be done, such as: ??? A post-void bladder scan. This measures any amount of urine that may remain in your bladder after you finish urinating. ??? A digital rectal exam. In a rectal exam, your health care provider checks your prostate by putting a lubricated, gloved finger into your rectum to feel the back of your prostate gland. This exam detects the size of your gland and any abnormal lumps or growths. ??? An exam of your urine (urinalysis). ??? A prostate specific antigen (PSA) screening. This is a blood test used to screen for prostate cancer. ??? An ultrasound. This test uses sound waves [...] severity of your condition. Treatment may include: ??? Observation and yearly exams. This may be the only treatment needed if your condition and symptoms are mild. ??? Medicines to relieve your symptoms, including: ? Medicines to shrink the prostate. ? Medicines to relax the muscle of the prostate. ??? Surgery in severe cases. Surgery may include: [...] the urethra. Follow these instructions at home: ??? Take shum-wdy-fumjzpa and prescription medicines only as told by your health care provider. ??? Monitor your symptoms for any changes. Contact your health care provider with any changes. ??? Avoid drinking large amounts of liquid before going to bed or out in public. ??? Avoid or reduce how much caffeine or alcohol you drink. ??? Give yourself time when you urinate. ??? Keep all follow-up visits. This is important. Contact a health care provider if: ??? You have unexplained back pain. ??? Your symptoms do not get (more content not included)... [facility] 07-16-2024 Hospital Discharge instructions Patient Education 07/16/2024 12:11:18 Prostatitis Prostatitis Prostatitis is swelling or inflammation of the prostate gland, also called the prostate. This gland is about 1.5 inches wide and 1 inch high, and it is involved in making semen. The prostate is located below a man's bladder, in front of the rectum. There are four types of prostatitis: Chronic prostatitis (CP), also called chronic pelvic pain syndrome (CPPS). This is the most common type of prostatitis. It is associated with increased muscle tone in the area between the hip bones (pelvic area), around the prostate. This type is also known as a pelvic floor disorder. Chronic bacterial prostatitis. This type usually results from an acute bacterial infection in the prostate gland that keeps coming back or has not been treated properly. The symptoms are less severe than those caused by acute bacterial prostatitis, which lasts a shorter time. Asymptomatic inflammatory prostatitis. This type does not have symptoms and does not need treatment. This is diagnosed when tests are done for other disorders of the urinary tract or reproductive tract. Acute bacterial prostatitis. This type starts quickly and results from an acute bacterial infection in the prostate gland. It is usually associated with a bladder infection, high fever, and chills. This is the least common type of prostatitis. What are the causes? Bacterial prostatitis is caused by an infection from bacteria. Chronic nonbacterial prostatitis may be caused by: Factors related to the nervous system. This system includes thebrain, spinal cord, and nerves. An autoimmune response. This happens when the body's disease-fighting system attacks healthy tissue in the body by mistake. Psychological factors. These have to do with how the mind works. The causes of the other types of prostatitis are usually not known. What are the signs or symptoms? Symptoms of this condition depend on the type of prostatitis you have. Acute bacterial prostatitis Symptoms may include: Pain or burning during urination. Frequent and sudden urges to urinate. Trouble starting to urinate. Fever. Chills. Pain in your muscles or joints, lower back, or lower abdomen. Other types of prostatitis Symptoms may include: Sudden urges to urinate, or urinating often. Trouble starting to urinate. Weak urine stream. Dribbling after urination. Discharge coming from the penis. Pain in the testicles, the penis, or the tip of the penis. Pain in the area in front of the rectum and below the scrotum (perineum). Pain when ejaculating. How is this diagnosed? This condition may be diagnosed based on: A physical and medical exam. A digital rectal exam. For this, the health care provider may use a finger to feel the prostate. A urine test to check for bacteria. A semen sample or blood tests. Ultrasound. Urodynamic tests to check how your body handles urine. Cystoscopy to look inside your bladder or inside the part of your body that drains urine from the bladder (urethra). How is this treated? Treatment for this condition depends on the type of prostatitis. Treatment may involve: Medicines to relieve pain or inflammation, or to help relax your muscles. Physical therapy. Heat therapy. Biofeedback. These techniques help you control certain body functions. Relaxation exercises. Antibiotic medicine, if your condition is caused by bacteria. Sitz baths. These warm water baths help to relax your pelvic floor muscles, which helps to relieve pressure on the prostate. Follow these instructions at home: Medicines Take notx-zku-hgwyeyt and prescription medicines only as told by your health care provider. If you were prescribed an antibiotic medicine, take it as told by your health care provider. Do not stop using the antibiotic even if you start to feel better. Managing pain and swelling Take sitz baths as directed by your health care provider. For a sitz bath, sit in warm water that is deep enough to cover your hips and buttocks. If directed, apply heat to the affected area as often as told by your health care provider. Use the heat source that your health care provider recommends, such as a moist heat pack or a heating pad. ?Place a towel between your skin and the heat source. ?Leave the heat on for 20 30 minutes. ?Remove the heat if your skin turns bright red. This is especially important if you are unable to feel pain, heat, or cold. You may have a greater risk of getting burned. General instructions Do exercises as told by your health care provider, if you were prescribed physical therapy, biofeedback, or relaxation exercises. Keep all follow-up visits as told by your health care provider. This is important. Where to find more information National [place] of Diabetes and Digestive and Kidney Diseases: https://www.niddk.nih.gov Contact a health care provider if: Your symptoms get worse. You have a fever. Get help right away if: You have chills. You feel light-headed or feel like you may faint. You cannot urinate. You have blood or blood clots in your urine. Summary Prostatitis is swelling or inflammation of the prostate gland. Treatment for this condition depends on the type of prostatitis. Take xeuf-cvt-wmpyhcg and prescription medicines only as told by your health care provider. Get help right away of you have chills, feel light-headed, feel like you may faint, cannot urinate, or have blood or blood clots in your urine. This information is not intended to replace advice given to you by your health care provider. Make sure you discuss any questions you have with your health care provider. Document Revised: 03/17/2023 Document Reviewed: 03/17/2023 [employer] Patient Education 2023 [employer]. Follow Up Care 06/20/2023 16:05:34 With:SAMANTHA RODRIGUEZ PA-C, URL Address: [address] [place] [address] When:Within 2 Month(s) With:BRENNA LUU, Ted Echavarria, URL Address: [facility] [address], [place] [address] [phone] When: Unknown [facility] 07-16-2024 Evaluation + Plan note Future Scheduled [id number] 07/16/24 [facility] 07-16-2024 Note Patient Education Infectious Disease Prostatitis Prostatitis is swelling or inflammation of the prostate gland, also called the prostate. This gland is about 1.5 inches wide and 1 inch high, and it is involved in making semen. The prostate is located below a man's bladder, in front of the rectum. There are four types of prostatitis: ??? Chronic prostatitis (CP), also called chronic pelvic pain syndrome (CPPS). This is the most common type of prostatitis. It is associated with increased muscle tone in the area between the hip bones (pelvic area), around the prostate. This type is also known as a pelvic floor disorder. ??? Chronic bacterial prostatitis. This type usually results from an acute bacterial infection in the prostate gland that keeps coming back or has not been treated properly. The symptoms are less severe than those caused by acute bacterial prostatitis, which lasts a shorter time. ??? Asymptomatic inflammatory prostatitis. This type does not have symptoms and does not need treatment. This is diagnosed when tests are done for other disorders of the urinary tract or reproductive tract. ??? Acute bacterial prostatitis. This type starts quickly and results from an acute bacterial infection in the prostate gland. It is usually associated with a bladder infection, high fever, and chills. This is the least common type of prostatitis. What are the causes? Bacterial prostatitis is caused by an infection from bacteria. Chronic nonbacterial prostatitis may be caused by: ??? Factors related to the nervous system. This system includes thebrain, spinal cord, and nerves. ??? An autoimmune response. This happens when the body's disease-fighting system attacks healthy tissue in the body by mistake. ??? Psychological factors. These have to do with how the mind works. The causes of the other types of prostatitis are usually not known. What are the signs or symptoms? Symptoms of this condition depend on the type of prostatitis you have. Acute bacterial prostatitis Symptoms may include: ??? Pain or burning during urination. ??? Frequent and sudden urges to urinate. ??? Trouble starting to urinate. ??? Fever. ??? Chills. ??? Pain in your muscles or joints, lower back, or lower abdomen. Other types of prostatitis Symptoms may include: ??? Sudden urges to urinate, or urinating often. ??? Trouble starting to urinate. ??? Weak urine stream. ??? Dribbling after urination. ??? Discharge coming from the penis. ??? Pain in the testicles, the penis, or the tip of the penis. ??? Pain in the area in front of the rectum and below the scrotum (perineum). ??? Pain when ejaculating. How is this diagnosed? This condition may be diagnosed based on: ??? A physical and medical exam. ??? A digital rectal exam. For this, the health care provider may use a finger to feel the prostate. ??? A urine test to check for bacteria. ??? A semen sample or blood tests. ??? Ultrasound. ??? Urodynamic tests to check how your body handles urine. ??? Cystoscopy to look inside your bladder or inside the part of your body that drains urine from the bladder (urethra). How is this treated? Treatment for this condition depends on the type of prostatitis. Treatment may involve: ??? Medicines to relieve pain or inflammation, or to help relax your muscles. ??? Physical therapy. ??? Heat therapy. ??? Biofeedback. These techniques help you control certain body functions. ??? Relaxation exercises. ??? Antibiotic medicine, if your condition is caused by bacteria. ??? Sitz baths. These warm water baths help to relax your pelvic floor muscles, which helps to relieve pressure on the prostate. Follow these instructions at home: Medicines ??? Take ogvu-vui-ajfpged and prescription medicines only as told by your health care provider. ??? If you were prescribed an antibiotic medicine, take it as told by your health care provider. Do not stop using the antibiotic even if you start to feel better. Managing pain and swelling ??? Take sitz baths as directed by your health care provider. For a sitz bath, sit in warm water that is deep enough to cover your hips and buttocks. ??? If directed, apply heat to the affected [...] greater risk of getting burned. General instructions ??? Do exercises as told by your health care provider, if you were prescribed physical therapy, biofeedback, or relaxation exercises. ??? Keep all follow-up visits as told by your health care provider. This is important. (more content not included)... [facility] 06-20-2023 Hospital Discharge instructions Patient Education 06/20/2023 [...] urethra. Follow these instructions at home: Take ygnl-mch-cfsuakp and prescription medicines only as told by [...] provider. Document Revised: 11/18/2021 Document Reviewed: 11/18/2021 [employer] Patient Education 2022 [employer]. Follow Up Care 12/13/2022 16:29:24 With:BRENNA LUU, Ted Echavarria, URL Address: [facility] [address], [place] [address] [phone] When: Unknown Comments:1 yr [facility] 01-12-2023 Evaluation note Encounter Date Diagnosis Assessment Notes Dec, Fecal incontinence (ICD-10 - R15.9) Dec, Constipation, unspecified constipation type (ICD-10 - K59.00) [employer] Other 01-25-2023 Hospital Discharge instructions Patient Education 06/09/2022 15:29:32 Prostatitis, Dany-ld-Hbqu Prostatitis Prostatitis is swelling of the prostate gland. The prostate helps to make semen. It is below a man's bladder, in front of the rectum. There are different types of prostatitis. Follow these instructions at home: Take ieco-nre-mlgmpih and prescription medicines only as told by [...] 10/31/2012 Document Revised: 04/14/2018 Document Reviewed: 01/20/2017 [employer] Patient Education 2020 [employer]. 06/09/2022 15:29:30 Benign Prostatic Hyperplasia Benign Prostatic [...] urethra. Follow these instructions at home: Take notu-jmu-lleytjq and prescription medicines only as told by [...] 05/02/2006 Document Revised: 03/27/2019 Document Reviewed: 06/06/2017 [employer] Patient Education 2020 [employer]. Follow Up Care 06/03/2022 09:55:30 With:SAMANTHA RODRIGUEZ PA-C, URL Address: [address] [place] [address] [place] [address] When:Within 6 Month(s) [facility] 11-14-2022 NoteSubjective Patient ID: Oral M Krish is a 81 y.o. male who presents [...] the past 36 hour(s)). No follow-ups on file.[facility]10-24-2022 Note Subjective Patient ID: Patrick Rutherford is [...] the past 36 hour(s)). No follow-ups on file.[facility]10-12-2022 NotePatient will be going to [facility] at 6pm tonight. Spoke with the patient and his granddaughter about the discharge time. [facility]10-12[facility]10[facility]12[facility] Sent therapy notes. Patient has received the covid vaccine but not the boosters.[facility]10-12-2022 Note02/24/22 1421 Time Calculation Start Time 1145 Stop Time 1205 Time Calculation (min) 20 min PT Evaluation Time Entry PT Evaluation (Moderate) Time Entry 20 Discharge recommendations: SNF Oral Efren Rutherford is a 81 y.o. male Right carotid stenosis presented today to undergo TCA 02/22. 02/24/22 1145 PT Last Visit PT Received On 02/24/22 General Subjective Line Out Worker notes BLE tremor and truncal tremor w/ standing, and mild to moderate gait ataxia. Patient states this has occurred for about a year. Has not discussed w/ MD. States occurs at home as well as during hospital stay. Line Out Worker suggests pt see neurologist d/t Parkinsonian symptoms. [...] Layout One level Prior Function Level of Francisco Independent with ADLs and functional transfers (ambulates w/ cane) Homemaking Assistance Needs assistance (Patient's son has caregivers for physical care; staff also manages clinical academic allergist including cooking. prepares light meals w/o cooking) [...] Frequency (5x/wk and PRN) PT Discharge Recommendations group home facility placement PT - [place] to Discharge Yes Antonia Torre PT, MPT [facility] 02-24-2022 NoteOccupational Therapy Occupational Therapy Evaluation Patient Name: Patrick Rutherford Today's Date: 02/24/2022 Time In: 1145 Time Out: 1205 OT Discharge Recommendations: group home facility placement General Visit Information: General Subjective: Pt pleasant and cooperative. Pt LA POSTA and requires repitition during communication. Pt typically [...] Lives With: Spouse, Son (Son is handicapped. Mobile Homes Repairer/CHARGER OPERATOR provides assistance to son and completes household tasks and IADLs.) Home Adaptive Equipment: Cane, Walker rolling Home Layout: One level Home Access: Ramped entrance Bathroom Shower/Tub: Walk-in shower Bathroom Toilet: Handicapped height Bathroom Equipment: None Prior Level of Function Prior Function ADL Assistance: Independent Homemaking Assistance: Needs assistance (Mobile Homes Repairer/CHARGER OPERATOR provides assistance with household tasks: cleaning, cooking, [...] all the time H (more content not included)...[facility]10-12-2022 NoteMet with the patient. He lives with his and son in a one story home with no steps to enter. He has a cane. He is active with [facility]. Called his family member Dina with his approval. She would like for him to try for [facility] in [place] at discharge. Sent referrals to all listed. 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 Pertinent Physical Exam [...] Teague HVCVASENDO MA [facility] 03/17/2022 10:00 AM [facility] Test Results Pending At Discharge None Completed by Ivan Montaño MS3 (more content not included)...[facility]10-11-20[facility]UnHol[facility] PROGRESS NOTE [...] ratio. Antegrade vertebral artery flow. Assessment/Plan Oral M Krish is a 81 y.o. male whom is POD #1 from [facility]. Continue cardiac diet Home medications restarted Patient feels he is unsteady on his feet and requests PT/OT consult- order placed DC art line and love PRN pain and nausea medications Incentive spirometry Ambulate/OOB DVT ppx: subcu hep Ashley Gomez MD General Surgery Resident, PGY-2 I can be reached via [employer] ([place]) ITChat [id number] [facility]10-11-2022 NotePt taken to room per transport, WARREN Koch receiving pt updated on event prior to sending pt to roomUnSelect Medical [facility]10-11-2022 NoteEkg completed, vascular notified of left bundle branch block on test, ok to sent pt to room 5140 at this time, no s/sx distress noted with pt.[facility]10-11-2022 NotePt c/o chest pressure/heart rate feeling slow, vs wnl, notified vascular, at bedside, will place orders for ekg/trop. Pt w/o s/sx distress notedUnSelect Medical [facility]10-11-2022 NoteSpoke with Ashley with vascular update given on mag level of 1.4, will place orders for replacementUnSelect Medical Specialty [facility]10-11-2022 NotePatient asymptomaticUnSelect Medical Specialty [facility]10-11-2022 NoteEDELMIRA Luna notified of new scant blood noted to dressing, no new orders at this time, will continue to monitorUnSelect Medical Special[facility]10-10-2022 Note Patient: Oral M Rutherford Procedure Summary Date: 02/22/22 Room / Location: [address] / [facility] Operating Room Anesthesia Start: 1526 Anesthesia Stop: [...] events for this encounter. Lizz Larsen MD Commissary Clerk PGY-2 02/22/2022 5:42 PMUnSelect Medical Specialty Hospital [facility]10-10-2022 NoteArterial Line: Date/Time: 02/22/2022 3:55 PM An [...] procedure well with no complications. Staffing Performed: resident/TAX ASSESSOR/CAA Resident/TAX ASSESSOR: Lizz Larsen MDMetroHealth Cleveland Heights Medical Center10-10-2022 NoteAirway Date/Time: 02/22/2022 3:38 PM Urgency: elective Airway not difficult General Information and Staff Patient location during procedure: OR Anesthesiologist: Kwabena Meza MD Resident/TAX ASSESSOR/CAA: Lizz Larsen MD Performed: resident/TAX ASSESSOR/CAA and other anesthesia staff Indications and Patient [...] of other approaches attempted: 0 Additional Comments Randla Guillory student performed intubationUnSelect Medical Specialty [facility]10-10-2022 NotePatient: Oral M Rutherford Procedure Information Date/Time: 02/22/22 1445 Procedure: Right Transcarotid Artery Revascularization vs Right Carotid Endarterectomy (Right) Location: [facility] [place] OR [facility] / [facility] Operating Room Surgeons: Jazz Diamond MD Relevant [...] with resident and medical student. Additional Equipment RequestsMetroHealth [facility] Center08-09-2022 Hospital Discharge instructions Patient Education 12/22/2021 15:22:24 [...] urethra. Follow these instructions at home: Take mqdf-wfo-sbusnhe and prescription medicines only as told by [...] 05/02/2006 Document Revised: 03/27/2019 Document Reviewed: 06/06/2017 [employer] Patient Education 2020 [employer]. Follow Up Care 12/09/2021 11:45:24 With:BRENNA LUU, ABRIL Bernal Address: [facility] [address] , [place] [address] When:Within 3 Month(s) [facility] 07-15-2022 Hospital Discharge instructions Patient Education 11/27/2021 [...] alcohol may irritate the prostate. Medicines Take orxo-xpt-tsfakfs and prescription medicines only as told by [...] 01/28/2005 Document Revised: 04/14/2018 Document Reviewed: 02/16/2018 [employer] Patient Education [employer]. Follow Up Care 10/26/2021 11:31:21 With:Ted CEJA MD, URL Address: [address] [place] [id number]- When: Unknown [facility] 04-26-2022 Hospital Discharge instructions Follow Up Care 09/08/2021 15:16:10 With:SAMANTHA RODRIGUEZ PA-C, URL Address: [address] [place] [phone] When: Unknown [facility] [facility] evaluation + Plan note No data available for this section [facility] Evaluation + Plan note Future Appointments Appointment Date:03/01/2022 01:15:00 PM Scheduled Provider:Ted CEJA MD Location:[facility] Appointment Type:URO Office Visit [facility] Evaluation + Plan note Future Appointments Appointment Date:12/13/2022 03:00:00 PM Scheduled Provider:Ted CEJA MD Location:[facility] Appointment Type:URO Office Visit [facility] evaluation + Plan note Future Appointments Appointment Date:06/25/2024 03:00:00 PM Scheduled Provider:Ted CEJA MD Location:[facility] Appointment Type:URO Office Visit Future Scheduled Tests Laboratory* Creatinine 10/06/22 Radiology* CT Abdomen/Pelvis w/ Contrast 10/06/22 [facility] evaluation + Plan note Future Appointments Appointment Date:09/10/2024 03:00:00 PM Scheduled Provider:SAMANTHA RODRIGUEZ PA-C Location:[facility] Appointment Type:URO Office Visit Future Scheduled Tests Laboratory* HgbA1c 07/16/24 [facility] evaluation noteNo assessment information available [facility] Work Phone: Evaluation noteNo [facility] Content Circles Other History general Narrative - Reported* Type Description Date Medical History Diabetes Medical History HTN (hypertension) Medical History Hypercholesteremia Medical History Enlarged prostate Medical History Hypothyroid Surgical History C Artery Surgical History heart stent Surgical History carotid see Surgical History Stent x 1 Heart Surgical History Stent x 1 neck Surgical History triple bypass 08/2016 Hospitalization History see above [facility] Discharge instructions No data available for this section General Surgery [place] [facility] note No data available for this section [facility] Summary Purpose Family History No Family History Records Found Relationship Condition Age at Onset Recorded Date/T marissa brother Unknown father Heart disease Unknown Unknown Hypertension Unknown mother Unknown sibling Heart disease Unknown Malignant neoplasm Unknown sister Unknown Advance Directives No Advanced Directives Records Found Advance Directive Response Recorded Date/ Time Advance Directives No January 12, 2023 3:17pm Chief Complaint and Reason for Visit Chief Complaint K59.00 Chief Complaint K59.00 k59.00 k59.00 Chief Complaint Admit Date Unknown September 11, 2024 9:3 5pm Additional Source Comments Care Team (unrecognized sect ion and content) Team Status: Active Member Role Status Dates Shreyas Espino MD Primary Care Provider Active Team Status: Inactive Member Role Status Dates Shreyas Espino MD Primary Care Provider Active Lamin Thomason MD Attending Provider Active Team Status: Inactive Member Role Status Dates Dong Stroud MD Attending Provider Active St art: September 11, 2024 End: September 11, 2024 (unrecognized sect ion and content) No Status Records FoundNo Status Records FoundNo Status Records FoundNo Status Records FoundNo Status Records FoundNo Status Records Found INFORMATION SOURCE (unrecogn ized section and content) DATE CREATED AUTHOR 12/01/2021 [facility] DATE CREATED AUTHOR AUTHOR'S ORGANIZ ATION 04/09/2022 [facility] DATE CREATED AUTHOR AUTHOR'S ORGANIZ ATION 09/29/2022 [facility] DATE CREATED AUTHOR AUTHOR'S ORGANIZ ATION 09/19/2024 [facility] DATE CREATED AUTHOR AUTHOR'S ORGANIZ ATION 10/18/2024 [facility] DATE CREATED AUTHOR AUTHOR'S ORGANIZ ATION 11/13/2024 [facility] REASON FOR VISIT (unrecogniz ed [...] BE BASED ON THE PRIMARY CLINICAL RECORDS. [facility] [employer] [facility]. provides no warranty or guarantee of the accuracy or completeness of information in this document.
--- OUTSIDE RECORDS SUMMARY | 2025-01-10 01:38 | XMS_ITS | Continuity of Care Document ---
Author Organization [facility] Address [address] [place] [address] Insurance Providers Payer Plan Claims Address Claims Phone Policy Number Group Number Relation Employer Guarantor Name Guarantor Guarantor Address Guarantor Phone [employer] [id number] H [id number] [employer] [place] [employer] [facility] PFFS [id number] [place] (MEDI CARE) [address] [place] [address] tel: [id number] Problems Condition ICD9 code ICD10 code SNOMED code Start Date End Date S tatus Type 2 diabetes mellitus without complications E11.9 09/12/2024 Act rere Urinary tract infection, site not specified N39.0 09/12/2024 Active Hyperlipidemia, unspecified E78.5 09/12/2024 Active Anxiety disorder, unspecified F41.9 09/12/2024 Active Hypothyroidism, unspecified E03.9 09/12/2024 Active Gastro-esophageal reflux disease without esophagitis K21.9 09/12/2024 Active Essential (primary) hypertension I10 09/12/2024 Active Benign prostatic hyperplasia without lower urinary tract symptoms N40.0 09/12/2024 Ac tive Muscle weakness (generalized) M62.81 09/13/2024 Active Difficulty in walking, not elsewhere classified R26.2 09/13/2024 Active Dysphagia, oral phase R13.11 09/12/2024 Active Cognitive communication deficit R41.841 09/12/2024 Active Unspecified dementia, unspecified severity, with agitation F03.911 09/13/2024 Active Limitation of activities due to disability Z73.6 09/13/2024 Active Nutritional deficiency, unspecified E63.9 09/17/2024 Active Results Test Value / Unit Interpretation Reference Ran ge Tuberculosis reaction wheal[ 79846-8] Tuberculosis reaction wheal [87800-6] 0 mm Allergies, adverse reactions, alerts Substance Reaction Date Status Type No allergies have been recorded Non Drug Immunizations Vaccine Route Date Status COVID-19 Vaccine Unassigned Route of Administration Completed COVID-19 Vaccine Unassigned Route of Administration Completed COVID-19 Vaccine Unassigned Route of Administration Completed Medications Medication Instructions Route Dosage Frequency Start Date Stop Date Indications Status atorvastatin 40 mg tablet (atorvastatin) 40mg, oral, At Bedtime oral 1.0 Hyperlipidemia , unspecified Active carvedilol 25 mg tablet (carvedilol) 25mg, oral, Twice A Day oral 1.0 12.0 h Essential (primary) hypertension Active cefdinir 300 mg capsule (cefdinir) 2 gesy=970[address], oral, Once A Day oral 1.0 1.0 d 025 09/12 Urinary tract infection, site not specified Active clopidogrel 75 mg tablet (clopidogrel) 75mg, oral, Once A Day oral 1.0 1.0 d Active dutasteride 0.5 mg capsule (dutasteride) 0.5mg, oral, Once A Day, dx: BPH oral 1.0 1.0 d Benign prostatic hyperplasia without lower urinary tract symptoms Active glimepiride 4 mg tablet (glimepiride) 2 tabs=8mg, oral, Once A Day oral 1.0 1.0 d Type 2 diabetes mellitus without complications Active hydroxyzine HCl 25 mg tablet (hydroxyzine HCl) 25mg, oral, Once A Day - PRN oral 1.0 1.0 d 025 09/26 Anxiety disorder, unspecified Active Januvia (sitagliptin phosphate) 100 mg tablet (Januvia (sitagliptin phosphate)) 100mg, oral, Once A Day oral 1.0 1.0 d Type 2 diabetes mellitus without complications Active lactulose 10 gram/15 mL solution (lactulose) 30 ml, oral, Twice A Day oral 1.0 12.0 h Active levothyroxine 75 mcg tablet (levothyroxine) 75mcg, oral, Once A Day oral 1.0 1.0 d Hypothyroidism , unspecified Active pantoprazole 40 mg tablet,delayed release (DR/EC) (pantoprazole) 40mg, oral, Once A Day oral 1.0 1.0 d Gastro-esophag eal reflux disease without esophagitis Active tamsulosin 0.4 mg capsule (tamsulosin) 2caps=0.8mg, oral, Once A Day, BPH oral 1.0 1.0 d Benign prostatic hyperplasia without lower urinary tract symptoms Active cefdinir 300 mg capsule (cefdinir) 2 sgzw=268es, oral, Once A Day oral 1.0 1.0 d 09/22 Urinary tract infection, site not specified Active Vital Signs Date Vital Result Comment 09/12/2024 05:21 PM Body Height 65 [in_us] 09/12/2024 05:08 PM Body Weight 149 [lb_av] Body Mass Index 24.79 kg/m2 09/12/2024 04:55 PM Temperature 97.9 [degF] Oxygen Saturation 99 % Respiratory Rate 18 /min Heart Rate 70 /min Blood Pressure Systolic 119 mm[Hg] Blood Pressure Diastolic 65 mm[Hg] 09/12/2024 11:41 PM Temperature 98.6 [degF] Oxygen Saturation 95 % Respiratory Rate 16 /min Heart Rate 69 /min Blood Pressure Systolic 104 mm[Hg] Blood Pressure Diastolic 52 mm[Hg] 09/13/2024 09:25 AM Temperature 98.2 [degF] Oxygen Saturation 92 % Respiratory Rate 18 /min Heart Rate 51 /min Blood Pressure Systolic 136 mm[Hg] Blood Pressure Diastolic 60 mm[Hg] 09/13/2024 09:36 PM Temperature 98.1 [degF] Oxygen Saturation 93 % Respiratory Rate 18 /min Heart Rate 55 /min Blood Pressure Systolic 122 mm[Hg] Blood Pressure Diastolic 59 mm[Hg] 09/14/2024 09:20 AM Temperature 98.6 [degF] Oxygen Saturation 92 % Respiratory Rate 18 /min Heart Rate 69 /min Blood Pressure Systolic 140 mm[Hg] Blood Pressure Diastolic 68 mm[Hg] 09/14/2024 11:20 PM Temperature 98.5 [degF] Oxygen Saturation 93 % Respiratory Rate 18 /min Heart Rate 75 /min Blood Pressure Systolic 124 mm[Hg] Blood Pressure Diastolic 68 mm[Hg] 09/15/2024 12:10 PM Temperature 98.3 [degF] Respiratory Rate 16 /min Heart Rate 70 /min Blood Pressure Systolic 118 mm[Hg] Blood Pressure Diastolic 62 mm[Hg] 09/15/2024 12:11 PM Oxygen Saturation 93 % 09/16/2024 06:46 AM Temperature 98.1 [degF] Oxygen Saturation 92 % Respiratory Rate 16 /min Heart Rate 71 /min Blood Pressure Systolic 121 mm[Hg] Blood Pressure Diastolic 59 mm[Hg] 09/16/2024 08:17 AM Temperature 97.9 [degF] Heart Rate 70 /min 09/16/2024 08:18 AM Oxygen Saturation 93 % Respiratory Rate 16 /min Blood Pressure Systolic 116 mm[Hg] Blood Pressure Diastolic 63 mm[Hg] Social History No smoking Hx information available Encounters Type CPT Code Date Location Provider Indication s encounter report 09/12/2024 12:45 PM Yamila Green MD encounter report 09/12/2024 04:14 PM Yamila Green MD Advance Directives Directive Description Verification Date Supporting Document(s) Other Directive
[2025-01-10] MEDS: ACETAMINOPHEN 325 MG RECTAL SUPPOSITORY 650 MG PR ×2 (01:55→06:24)
[2025-01-10 02:11] LABS: Hematocrit 30.6 % (42.0-54.0); Hemoglobin 10.0 g/dL (14.0-18.0); Mean Corpuscular HGB Conc 32.7 g/dL (29.9-35.2); Mean Corpuscular Hemoglobin 29.5 pg (25.9-34.0); Mean Corpuscular Volume 90.3 fL (80.0-94.0); Platelet Count 210 10^3/uL (150-450); Red Blood Count 3.39 10^6/uL (4.70-6.10); White Blood Count 7.7 10^3/uL (4.0-11.0)
--- NOTE | 2025-01-10 02:12 | PC.NURSE ---
[facility]
--- NOTE | 2025-01-10 02:14 | PC.NURSE ---
Pt presents to ER via EMS from [facility] for altered mental status and fever Nurse at the [facility] called report to this nurse stated that she came on at 11pm and was told patient had had recent falls over last few days but when she assessed him he was altered Pt is a full code and typically A&Ox4 On arrival patient was on a non rebreather Pt extremely tachypneic and hard to evaluate due to shaking BP evaluated, temperature obtained via axillary as patients oral cavity is so very dry Pt has 1 IV on arrival and 1 liter finished infusing Another IV started, labwork and cultures obtained Straight cath performed for urine culture Pt had bowel movement, brief changed Pt taken off non-rebreather - doing well on 4 liters via O2 Pt is able to answer questions and follow commands, but is hard to understand when he speaks back Pt on monitor technician - will continue to monitor
[2025-01-10 02:18] LABS: Glucose Urine UA >=1000 mg/dL (NEGATIVE)
[2025-01-10 02:24] LABS: SARS-CoV-2 Ag NEGATIVE (NEGATIVE)
[2025-01-10 02:26] LABS: INR 1.19; Prothrombin Time 12.4 sec (9.0-11.6)
[2025-01-10 02:35] LABS: Alanine Aminotransferase 36 U/L (16-63); Albumin Globulin Ratio 0.4; Albumin Level 1.9 g/dL (3.4-5.0); Alkaline Phosphatase 502 U/L (46-116); Anion Gap 23.3; Aspartate Amino Transferase 20 U/L (15-37); Calcium 8.5 mg/dL (8.5-10.1); Carbon Dioxide 10.3 mmol/L (21.0-32.0); Chloride 108 mmol/L (98-107); Estimated GFR (African America 19 (>=60 mL/min/1.73m^2); Estimated GFR (Non-African Ame 15 (>=60 mL/min/1.73m^2); Globulin 4.8 g/dL; Glucose 368 mg/dL (74-106); Magnesium 1.6 mg/dL (1.8-2.4); Potassium 3.6 mmol/L (3.5-5.1); Sodium 138 mmol/L (136-145); Total Protein 6.7 g/dL (6.4-8.2)
--- OUTSIDE RECORDS SUMMARY | 2025-01-10 02:37 | XMS_ITS | CCD ---
Author Name Judi Soas NP Address [address] [place] [address] Phone Organization [facility] Phone Care Team Providers Care Program Specialist Name Role Phone Unavailable Primary Care Provider Unavailabl e Unavailable Chronic Care Management Unavaila ble Summary Purpose DataExchange Insurance Providers Payer name Policy type / Coverage type Covered green party ID Effective Begin Date Effective End Date [place] [id number] 2023 Unknown BCBS [place] [id number] Unknown Family history Father Diagnosis Age At Onset Heart attack Unknown Mother Diagnosis Age At Onset No Family Disease Entered N/A Social History Social History Element Codes Description Effec tive Dates Marital status Unknown 05/03/2023 Number of adults in household Unknown 3 05/03/2023 Tobacco history Unknown Former User 05/03/[address]: [id number] Never drinks alco hol 05/03/2023 Illegal/Recreational drug [...] Fill Instructions lisinopril 5 mg tablet RxNorm: 073935 Take 1 Tablet(s) Oral every day 3 08/07/19 Inactive pantoprazole 40 mg tablet,delayed release RxNorm: 850174 Take 1 Tablet(s) Oral every day 30 minutes before meal 3 03/24/20 24 Inactive tamsulosin 0.4 mg capsule RxNorm: 393750 Take 1 Capsule(s) Oral every day 3 04/27/20 24 Inactive glimepiride 4 mg tablet RxNorm: 838498 Take 1 Tablet(s) Oral every day with first main meal 3 04/26/20 24 Inactive levothyroxine 75 mcg tablet RxNorm: 113527 Take 1 Tablet(s) Oral every day on an empty stomach 30 minutes before breakfast 3 04/26/20 24 Inactive clopidogrel 75 mg tablet RxNorm: 087071 Take 1 Tablet(s) Oral once daily 3 04/26/20 24 Inactive Januvia 100 mg tablet RxNorm: 272944 Take 1 Tablet(s) Oral every day 3 04/26/20 24 Inactive atorvastatin 40 mg tablet RxNorm: 312126 Take 1 Tablet(s) Oral every night at bedtime 3 04/26/20 24 Inactive hydroxyzine HCl 25 mg tablet RxNorm: 778947 Take 1 Tablet(s) Oral every day 3 04/26/20 24 Inactive Medication Administered No Medication Administered data Results Observation Observation Code Item Item Code Result Date Service Location Patient Health Questionnaire (PHQ2) Little interest or pleasure in doing things 48299-9 0 024 Unknown Patient Health Questionnaire (PHQ2) Feeling down, depressed, or hopeless 64270-1 1 024 Unknown Patient Health Questionnaire (PHQ2) Total Score 1 024 Unknown MICROALBUMIN (URINE) 22210 Microalbumin 71664-7 2.4 mg/dL 023 [facility] [address] [place] [address] MICROALBUMIN (URINE) 79776 Microalbumin/Crea tinine Ratio 80462-7 40 MCG/MGCRE AT 023 [facility] [address] [place] [address] MICROALBUMIN (URINE) 51989 Urine Creatinine 2161-8 59.60 mg/dL 023 [facility] [address] [place] [address] COMPLETE CBC W/ DIFF WBC 86803 WBC 6690-2 9.8 K/ul 023 [facility] [address] [place] [address] COMPLETE CBC W/ DIFF WBC 75368 RBC 789-8 3.91 M/uL 023 [facility] [address] [place] [address] COMPLETE CBC W/ DIFF WBC 28987 Hemoglobin 718-7 11.6 g/dL 023 [facility] [address] [place] [address] COMPLETE CBC W/ DIFF WBC 56228 Hematocrit 4544-3 35.0 % 023 [facility] [address] [place] [address] COMPLETE CBC W/ DIFF WBC 86805 MCV 787-2 89.7 fL 023 [facility] [address] [place] [address] COMPLETE CBC W/ DIFF WBC 85281 MCH 785-6 29.7 pg 023 [facility] [address] [place] [address] COMPLETE CBC W/ DIFF WBC 07396 MCHC 786-4 33.2 g/dL 0[address] [facility] [address] [place] [address] 91889 COMPLETE CBC W/ DIFF WBC 00750 RDW 788-0 14.8 % 0[address] [facility] [address] [place] [address] 86861 COMPLETE CBC W/ DIFF WBC 21237 Platelet Count 777-3 356 K/uL 023 [facility] [address] [place] [address] 25827 COMPLETE CBC W/ DIFF WBC 04950 MPV 81740-9 7.8 fL 023 [facility] [address] [place] [address] 51146 COMPLETE CBC W/ DIFF WBC 95284 Neutrophils % 770-8 62.4 % 023 [facility] [address] [place] [address] 85683 COMPLETE CBC W/ DIFF WBC 02179 Lymphocytes % 736-9 26.6 % 023 [facility] [address] [place] [address] 82798 COMPLETE CBC W/ DIFF WBC 79572 Monocytes % 5905-5 8.5 % 023 [facility] [address] [place] [address] 08387 COMPLETE CBC W/ DIFF WBC 85068 Eosinophils % 713-8 1.8 % 0[address] [facility] [address] [place] [address] 01758 COMPLETE CBC W/ DIFF WBC 72722 Basophils% 706-2 0.7 % 023 [facility] [address] [place] [address] COMPLETE CBC W/ DIFF WBC 91334 Absolute Neutrophil 751-8 6115 /ul 023 [facility] [address] [place] [address] COMPLETE CBC W/ DIFF WBC 79846 Absolute Lymphocyte 46387-2 2607 /ul 023 [facility] [address] [place] [address] COMPLETE CBC W/ DIFF WBC 40447 Absolute Monocyte 742-7 833 /ul 023 [facility] [address] [place] [address] COMPLETE CBC W/ DIFF WBC 91248 Absolute Eosinophil 711-2 176 /ul 023 [facility] [address] [place] [address] 44687 COMPLETE CBC W/ DIFF WBC 13209 Absolute Basophil 704-7 69 /ul 023 [facility] [address] [place] [address] 06339 No Orders No Orders No Orders 0 0[address] [facility] [address] [place] [address] 41431 CHOLESTEROL 25925 Cholesterol 2093-3 171 mg/dL 023 [facility] [address] [place] [address] 61436 FREE T-4 78250 FT4 3024-7 1.04 ng/dL 0[address] [facility] [address] [place] [address] 05896 TRIGLYCERIDES 86408 Triglycerides 2571-8 241 mg/dL 023 [facility] [address] [place] [address] 83222 TRIGLYCERIDES 87039 VLDL 30965-1 48 mg/dL 0[address] [facility] [address] [place] [address] 52338 VITAMIN B-12 51909 Vitamin B12 2132-9 1001 pg/mL 0[address] [facility] [address] [place] [address] 07571 PTH 42389 PTH 2731-8 99.4 pg/mL 0[address] [facility] [address] [place] [address] 10166 MAGNESIUM 91256 Magnesium 80933-4 2.1 mg/dL 0[address] [facility] [address] [place] [address] 25670 FOLATE 58601 Folate 2284-8 >20 ng/mL 0[address] [facility] [address] [place] [address] 91314 HDL - CHOL 61335 HDL 2085-9 51 mg/dL 023 [facility] [address] [place] [address] HDL - CHOL 11448 CHD 07821-6 30 % 023 [facility] [address] [place] [address] VITAMIN D 17109 Vitamin D 58369-1 28.8 ng/mL 023 [facility] [address] [place] [address] [id number] IN [facility]84 Glyco HGB A1C 41802-9 9.1 % 023 [facility] [address] [place] [address] [id number] IN [facility] eAG 26304-3 214 mg/dL 023 [facility] [address] [place] [address] PREALBUMIN 93456 Prealbumin 02642-9 33 mg/dL 023 [facility] [address] [place] [address] TSH 10894 TSH 75468-1 1.430 uIU/mL 023 [facility] [address] [place] [address] CHEM 14 (METABOLIC PANEL) 09881 Glucose 2345-7 157 mg/dL 0[address] [facility] [address] [place] [address] 76920 CHEM 14 (METABOLIC PANEL) 56130 BUN 3094-0 19 mg/dL 0[address] [facility] [address] [place] [address] 02432 CHEM 14 (METABOLIC PANEL) 45219 Creatinine 2160-0 1.3 mg/dL 0[address] [facility] [address] [place] [address] 24645 CHEM 14 (METABOLIC PANEL) 18600 BUN/Creat Ratio 3097-3 14.6 023 [facility] [address] [place] [address] CHEM 14 (METABOLIC PANEL) 44709 GFR Estimated 68544-1 54 mL/min/1. 73m2 0[address] [facility] [address] [place] [address] 18876 CHEM 14 (METABOLIC PANEL) 71829 Sodium 2951-2 141 mmol/L 0[address] [facility] [address] [place] [address] 46993 CHEM 14 (METABOLIC PANEL) 42543 Potassium 2823-3 4.6 mmol/L 0[address] [facility] [address] [place] [address] 33890 CHEM 14 (METABOLIC PANEL) 51187 Chloride 2075-0 109 mmol/L 023 [facility] [address] [place] [address] CHEM 14 (METABOLIC PANEL) 05248 Total CO2 2028-9 24 mmol/L 023 [facility] [address] [place] [address] CHEM 14 (METABOLIC PANEL) 50382 Anion Gap 1863-0 12.6 mEq/L 023 [facility] [address] [place] [address] CHEM 14 (METABOLIC PANEL) 14676 Calculated Serum Osmolality 83416-7 298 mOsm/kg 023 [facility] [address] [place] [address] 29100 CHEM 14 (METABOLIC PANEL) 43045 Albumin 65268-1 3.8 g/dL 0[address] [facility] [address] [place] [address] 53188 CHEM 14 (METABOLIC PANEL) 61977 Total Protein 2885-2 7.4 g/dL 0[address] [facility] [address] [place] [address] 34177 CHEM 14 (METABOLIC PANEL) 03552 Globulin 2336-6 3.6 g/dL 023 [facility] [address] [place] [address] CHEM 14 (METABOLIC PANEL) 31275 Albumin/Globulin Ratio 1759-0 1.1 023 [facility] [address] [place] [address] 75051 CHEM 14 (METABOLIC PANEL) 18099 ALK PHOS 6768-6 69.00 U/L 023 [facility] [address] [place] [address] CHEM 14 (METABOLIC PANEL) 69320 SGOT/AST 1920-8 16 U/L 023 [facility] [address] [place] [address] CHEM 14 (METABOLIC PANEL) 33289 SGPT/ALT 1743-4 23 U/L 023 [facility] [address] [place] [address] 66823 CHEM 14 (METABOLIC PANEL) 87010 Total Bilirubin 1975-2 0.6 mg/dL 023 [facility] [address] [place] [address] CHEM 14 (METABOLIC PANEL) 19766 Calcium 83494-0 9.0 mg/dL 023 [facility] [address] [place] [address] CHEM 14 (METABOLIC PANEL) 93331 Corrected Calcium 22712-3 9.3 mg/dL 05/04 023 [facility] [address] [place] [address] Direct LDL 12205 LDL-Direct 13015-1 96 mg/dL 023 [facility] [address] [place] [address] Procedures Procedure Codes Date Advance Care Planning discussed and documented C PT-4: 1123F 07/13/2023 Annual Wellness Visit (Initial Visit) CPT-4: G04 38 07/13/2023 Patient Screened for Future Fall Risk CPT-4: 110 0F 07/13/2023 Fall plan of care doc'd CPT-4: 0518F 07/13/19 24 MED LIST DOCD IN [facility] CPT-4: 1159F 07/13/2023 RVW MEDS BY RX/DR IN [facility] CPT-4: 1160F 2023 Amnt pain noted; pain [...] not required CPT-4: G8510 07/13/2023 Electrocardiogram CPT-4: 93476 05/03/2023 Urinalysis, dip stick CPT-4: 01534 05/03/2023 Electrocardiogram Finding/Abnormal: _Sinus Rhythm - frequent ectopic ventricular beat s # VECs = 2-Left bundle branch block. Poor SNR (< 1) in leads II CPT-4: 17908Wvakgjx 05/03/2023 Glucose Blood Test CPT-4: 02718 05/03/2023 Urinalysis, dip stick Leukocytes:/Small, Nitrite:/Negative, Urobilinogen:/0.2, Protein:/Negative, Ph:/5.0, Blood:/Negative, Specific [place]:/1.010, Ketone:/Negative, Bilirubin:/Small, Glucose:/100 CPT-4: 64920Pxqdpnr 05/03 [id number] CPT-4: 81759 Unknown Vital Signs Date Vital 07/13/2023 Blood Pressure 1: 118/74 Code: 8480-6 BMI: 25.3 Code: 92066-9 Heart Rate 1: 69 bpm Height: 5'6 Code: 8302-2 Respiratory Rate: 18 bpm SpO2: 98% Temperature: 36.4 (C) / 97.5 (F) Weight: 156 lbs 12 oz Code: 81524-4 06/27/2023 Blood Pressure 1: 116/80 Code: 8480-6 BMI: 26.2 Code: 09443-1 Heart Rate 1: 73 bpm Height: 5'6 Code: 8302-2 Respiratory Rate: 15 bpm SpO2: 96% Temperature: 37.1 (C) / 98.7 (F) Weight: 162 lbs Code: 47331-4 05/03/2023 Blood Pressure 1: 122/72 Code: 8480-6 BMI: 26.2 Code: 44279-8 Heart Rate 1: 67 bpm Height: 5'6 Code: 8302-2 Respiratory Rate: 16 bpm SpO2: 98% Temperature: 36.6 (C) / 97.9 (F) Weight: 162 lbs Code: 84247-0 Reason For Visit Reason For Visit Effective Dates Notes annual wellness visit 07/13/2023 Interim health update 07/13/2023 diabetes mellitus 07/13/2023 back pain 07/13/2023 Location 06/27/2023 at pt's home, hypertension 06/27/2023 CAD 06/27/2023 diabetes mellitus 06/27/2023 hypothyroidism 06/27/2023 prostate disease 06/27/2023 new patient visit 05/03/2023 Interim health update 05/03/2023 Encounters Encounter Performer Location Location Address Codes Hari e ([id number]) Annual Wellness Visit (Initial Visit) Diagnosis: Encounter for general adult medical examination with abnormal findings[ICD10: Z00.01] Diagnosis: At high risk for falls[ICD10: Z91.81] Diagnosis: Frail elderly[ICD10: R54] Diagnosis: Degenerative disc disease, lumbar[ICD10: M51.36] Jacinta Ashley Office [address] [place], [place] [id number] CPT-4: G0438 4 (61173) (EST PT) DETAILED TELEHEALTH VISIT Diagnosis: Hypertensive heart disease[ICD10: I11.9] Diagnosis: ASCVD (arteriosclerotic cardiovascular disease)[ICD10: I25.10] Diagnosis: Type 2 diabetes mellitus[ICD10: E11.9] Diagnosis: Hypothyroidism, unspecified[ICD10: E03.9] Diagnosis: BPH (benign prostatic hyperplasia)[ICD10: N40.0] [facility] Office [address] [place] [address] CPT-4: 74892 4 (54802) Home or Residence Visit CERTIFIED SCRUM MASTER - Moderate Level, 60 mins Diagnosis: ASCVD [...] establish care with new doctor[ICD10: Z76.89] Jacinta Ashley Office [address] [place], [place] [address] CPT-4: 56074 3 Plan of Care Planned Activity Notes Codes Status Date Appointment: Jacinta Sosa WPtel: [address] [place], [place] [id number] 08/16/2023 Visit Plan: Z00.01-V70.0 Encount er for general [...] assist with falls. Declines therapy this visit [id number] Frail elderly ambulates with straight cane, lives with elderly spouse and adult handicap son, pain limits mobility, independent with personal care M51.36-722.52 Degenerative disc disease, lumbar chronic low back pain worse with ambulation, denies using and medications for pain relief, pain typically subsides after he sits down, unable to determine if pain travels into LEs, continues with straight can for ambulation 07/13/2023 Appointment: Jacinta Sosa: [address] [place], [place] [id number] E410 07/13/2023 Patient Education: Patient Medication Summary Completed 07/13/2023 Patient Education: AWV Preventative Screening Schedule 2020 Completed 07/13/2023 Patient Education: Pain Management Completed 07/13/2023 Patient Education: Back Pain Completed 07/13/2023 Patient Education: Diabetes Completed 07/13/2023 Visit Plan: I11.9-402.90 Hypertensive heart disease (visit done via audio-Video telehealth., chronic, BP controlled on Lisinopril, statin, continue same med doses, labs reviewed, ) I25.10-429.2 ASCVD (arteriosclerotic cardiovascular disease) (chronic, s/p CABG, Aortic valve replaced, asymptomatic on plavix, statin, to f/u with [employer] Supervisor, ) E11.9-250.00 Type 2 diabetes mellitus (chronic, [...] done via audio-video telehealth by use of [facility], 06/27/2023 Appointment: Dean Wilson WPtel: [address] [place], [place] [phone] ET 06/27/2023 Patient Education: Diabetes Completed 06/27/2023 Patient Education: Hypertension Completed 06/27/2023 Patient Education: Patient Medication Summary Completed 06/27/2023 Patient Education: Heart Disease Completed 06/27/2023 Patient Education: Patient Medication Summary Completed 05/04/2023 Care Plan: External Echocardiography Ordered 05/04/2023 Visit Plan: I25.10-429.2 ASCVD (arteriosclerotic cardiovascular disease) [...] ago-will request records Isamar Bond, urology 05/03/2023 Appointment: Fletcher Sosaelle WPtel: [address] [place], [place] [phone] [id number] 05/03/2023 Patient Education: Patient Medication Summary Completed 05/03/2023 Care Plan: Echocardiogram LOINC : 99579-4 EXT RAD Ordered 05/03/2023 Instructions Comment Date . Z00.-V70.0 Encounter for general adult medical examination with [...] continues with straight can for ambulation 07/13/2023 . I11.9-402.90 Hypertensive heart disease (visit done via audio-Video telehealth., chronic, BP controlled on Lisinopril, statin, continue same med doses, labs reviewed, ) I25.10-429.2 ASCVD (arteriosclerotic cardiovascular disease) (chronic, s/p CABG, Aortic valve replaced, asymptomatic on plavix, statin, to f/u with [employer] Supervisor, ) E11.9-250.00 Type 2 diabetes mellitus (chronic, [...] done via audio-video telehealth by use of [facility], 06/27/2023 . I25.10-429.2 ASCVD (arteri osclerotic cardiovascular disease) [...]
[2025-01-10 02:43] LABS: Blood Urea Nitrogen 76.0 mg/dL (7.0-18.0); Lactate/Lactic Acid 9.4 mmol/L (0.4-2.0); NT Pro B Type Natriuretic Pept 9251.0 pg/mL (<=1800.0)
[2025-01-10 02:44] LABS: Basophils Abs Manual 0.00 10^3/uL (0.00-0.10); Basophils Percent Manual 0.0 % (0.2-2.0); Eosinophils Absolute Manual 0.00 10^3/uL (0.00-0.70); Eosinophils Percent Manual 0.0 % (0.9-7.0); Lymphocytes Absolute Manual 0.46 10^3/uL (1.20-3.80); Lymphocytes Percent Manual 6.0 % (20.5-60.0); Monocytes Absolute Manual 0.15 10^3/uL (0.30-0.80); Monocytes Percent Manual 2.0 % (1.7-12.0); Segmented Neut Absolute Manual 7.08 10^3/uL (1.4-6.5); Segmented Neutrophils % Manual 92.0 (43.0-75.0)
[2025-01-10 02:45] LABS: Toxic Granulation 1+
[2025-01-10 02:51] LABS: Cast Seen? NONE SEEN #/LPF (NONE SEEN); Crystals Seen? None Seen #/HPF (None Seen); Urine Culture Indicated YES-FRMC
--- NOTE | 2025-01-10 03:30 | RESP.RT ---
RT unable to obtain ABG. Dr. Melgar made aware.
[2025-01-10] MEDS: INSULIN REGULAR, HUMAN (100 UNIT/ML) 10 ML MDV 6 UNIT IV (03:46)
[2025-01-10] MEDS: 0.9 % SODIUM CHLORIDE 1,000 ML 250 ML IV (04:00)
[2025-01-10] MEDS: 0.9 % SODIUM CHLORIDE 1,000 ML 125 ML IV ×2 (04:07→06:33)
[2025-01-10] MEDS: NOREPINEPHRINE BITARTRATE/D5W 4 MG/250 ML PREMIX 15 MG IV (05:01)
[2025-01-10 05:18] LABS: Anion Gap 22.7; Calcium 8.4 mg/dL (8.5-10.1); Carbon Dioxide 11.1 mmol/L (21.0-32.0); Chloride 110 mmol/L (98-107); Estimated GFR (African America 17 (>=60 mL/min/1.73m^2); Estimated GFR (Non-African Ame 14 (>=60 mL/min/1.73m^2); Glucose 194 mg/dL (74-106); Potassium 3.8 mmol/L (3.5-5.1); Sodium 140 mmol/L (136-145)
[2025-01-10 05:21] LABS: Blood Urea Nitrogen 77.0 mg/dL (7.0-18.0); Lactate/Lactic Acid 9.4 mmol/L (0.4-2.0)
[2025-01-10] MEDS: NOREPINEPHRINE BITARTRATE/D5W 4 MG/250 ML PREMIX 30 MG IV (07:36)
[2025-01-10] MEDS: NOREPINEPHRINE BITARTRATE/D5W 4 MG/250 ML PREMIX 281.25 MG IV (08:32)
--- NOTE | 2025-01-10 08:35 | SWNOTE1 ---
YEMI had a message from Yamel at [facility] and pt is from there facility. YEMI advised Yamel it is documented that the [facility]. YEMI faxed drafted ED note to Yamel for continuation of care.
[2025-01-10 17:03] LABS: A. calcoaceticus-baumannii Cpx NOT DETECTED (NOT DETECTE); Bacteroides fragilis NOT DETECTED (NOT DETECTE); Candida auris NOT DETECTED (NOT DETECTE); Candida glabrata NOT DETECTED (NOT DETECTE); Enterococcus faecalis NOT DETECTED (NOT DETECTE); Enterococcus faecium NOT DETECTED (NOT DETECTE); Klebsiella aerogenes NOT DETECTED (NOT DETECTE); Klebsiella pneumoniae group NOT DETECTED (NOT DETECTE); Salmonella spp. NOT DETECTED (NOT DETECTE); Serratia marcescens NOT DETECTED (NOT DETECTE); Staphylococcus epidermidis NOT DETECTED (NOT DETECTE); Staphylococcus lugdunensis NOT DETECTED (NOT DETECTE); Staphylococcus spp. NOT DETECTED (NOT DETECTE); Stenotrophomonas maltophilia NOT DETECTED (NOT DETECTE); Streptococcus pyogenes NOT DETECTED (NOT DETECTE); Streptococcus spp. NOT DETECTED (NOT DETECTE)
[2025-01-10 18:55] LABS: Source BLOOD
[2025-01-10 18:56] LABS: Enterobacterales DETECTED (NOT DETECTE); Proteus spp. DETECTED (NOT DETECTE)
[2025-01-11 09:54] LABS: CTX-M NOT DETECTED (NOT DETECTE); IMP NOT DETECTED (NOT DETECTE); KPC NOT DETECTED (NOT DETECTE)
[2025-01-11 09:55] LABS: NDM NOT DETECTED (NOT DETECTE); OXA-48-like NOT DETECTED (NOT DETECTE); VIM NOT DETECTED (NOT DETECTE)
== END 2025-01-10 08:25 | disposition short-term general hospital (02) ==
PROVIDERS: Emergency Provider Emergency Medicine; PCP Family Medicine
DX: A41.9 Sepsis, unspecified organism (principal); N39.0 Urinary tract infection, site not specified; R73.9 Hyperglycemia, unspecified; Z91.81 History of falling; E87.20 Acidosis, unspecified; Z87.440 Personal history of urinary (tract) infections; Z87.891 Personal history of nicotine dependence; R50.9 Fever, unspecified; R41.82 Altered mental status, unspecified; R33.9 Retention of urine, unspecified; Z95.2 Presence of prosthetic heart valve; Z66 Do not resuscitate; N17.9 Acute kidney failure, unspecified; R79.89 Other specified abnormal findings of blood chemistry; R09.02 Hypoxemia; R09.89 Other specified symptoms and signs involving the circulatory and respiratory systems
CPT/HCPCS: 36415; 51702; 70450; 71045; 71250; 74176; 80048; 80053; 81001; 82805; 83605; 83735; 83880; 84484; 85007; 85027; 85610; 87040; 87077; 87086; 87088; 87150; 87186; 87811; 93005; 96361; 96365; 96366; 96367; 96368; 99285; J0696; J1817